=== PATIENT | female | born 1945 | race Caucasian/White ===

== ENCOUNTER → 2016-12-01 | Outpatient (CLI) | payer BC ==
[~2016-12-01] MED LIST: ADVIN50/60 INH; ADVIN50050 INH; ALBUAER19 INH; ASCA500 PO; ATEN-173 PO; BIOTCAP2 PO; CALCTAB7 PO; CHOL100010 PO; CHOL1TAB42 PO; CHOL4POW11 PO; CHOL4POW6 PO; CLTP PO; CYAN10005 PO; DICL1GEL12 TOP; DICL1GEL28; FERR1TAB23 PO; FLV400 PO; FURO-85 PO; GLIM1TAB2 PO; GLIP2.5T11 PO; HYDR0.5T PO; LANS15CA6 PO; LEFL20TA PO; LEVO100T7 PO; LEVO100T84 PO; MDR4 PO; METH1TAB81 PO; PLQ200 PO; SPIR25TA PO; SPR25 PO; SPRIN/30 INH; TIOTCAP INH; TRAM-10 PO; VNTHFA/IN INH; XPNINS NEB
[2016-12-01 09:43] LABS: ALT/SGPT 36 U/L (12-78); BLOOD UREA NITROGEN 19 mg/dl (7-18); CALCIUM 9.2 mg/dl (8.5-10.1); CARBON DIOXIDE 26 mmol/L (21-32); CHLORIDE 98 mmol/L (98-107); CHOLESTEROL 182 mg/dl (0-200); GLUCOSE 107 mg/dl (70-99); POTASSIUM 3.4 mmol/L (3.5-5.1); SODIUM 136 mmol/L (136-145); TRIGLYCERIDES 206 mg/dl (0-150); VERY LOW DENSITY LIPOPROT CALC 41 mg/dl
[2016-12-01 09:53] LABS: ALB/GLOB RATIO 1.1 (0.9-2); ALKALINE PHOSPHATASE 96 U/L (45-117); AST/SGOT 22 U/L (15-37); ESTIMATED AVERAGE GLUCOSE 160 mg/dl; HA1C FLAG Normal (Normal); HDL CHOLESTEROL 45 mg/dl; LDL CHOLESTEROL CALCULATED 96 mg/dl
== END | disposition home or self-care (01) ==
LOC: C.LAB1850 07:08
PROVIDERS: ATTEND Family Medicine
DX: E03.9 Hypothyroidism, unspecified (principal); I10 Essential (primary) hypertension; M54.5 Low back pain; R73.9 Hyperglycemia, unspecified; E78.5 Hyperlipidemia, unspecified

== ENCOUNTER → 2016-12-05 | Outpatient (CLI) | payer BC ==
[2016-11-29 15:58] VITALS: Ht 157.5 cm; Wt 64.5 kg
[~2016-12-05] VITALS: Ht 157.5 cm; Wt 64.5 kg
[2016-12-05 10:16] LABS: BASO % 0.5 %; BASO ABS # 0.08 K/uL (0-0.2); COMPLETE YES; EOS % 0.5 %; HEMATOCRIT 37.6 % (37-47); IG% 1.2 %; LYMPH % 6.9 %; LYMPH ABS # 1.17 K/uL (1.2-3.4); MEAN CORPUSCULAR HEMOGLOBIN 30.9 pg (25-34); MEAN CORPUSCULAR HGB CONC 34.3 g/dl (32-36); MEAN PLATELET VOLUME 9.6 fL (7.4-10.4); MONO % 10.2 %; NEUT % 80.7 %; PLATELET COUNT 338 K/uL (130-400); RED BLOOD COUNT 4.18 M/uL (4.2-5.4); WHITE BLOOD COUNT 16.91 K/uL (4.8-10.8)
== END | disposition home or self-care (01) ==
LOC: C.LAB 08:00 → EDSTATUS 12-09 10:15
PROVIDERS: ATTEND Internal Medicine Gastroenterology
DX: Z01.810 Encounter for preprocedural cardiovascular examination (principal); Z01.812 Encounter for preprocedural laboratory examination

== ENCOUNTER → 2017-01-13 | Outpatient (CLI) | payer BC ==
[2017-01-13 13:24] LABS: URINE APPEARANCE CLEAR (CLEAR); URINE BILIRUBIN NEG (NEG); URINE COLOR YELLOW; URINE NITRITE NEG (NEG); URINE SPECIFIC GRAVITY 1.001 (1.000-1.030); UROBILINOGEN NEG (NEG)
[2017-01-13 13:30] LABS: MANUAL MICROSCOPIC REQUIRED? NO; REVIEW REQ? NO
[2017-01-13 13:43] LABS: BLOOD UREA NITROGEN 18 mg/dl (7-18); BUN/CREATININE RATIO 14.7 (10-20); CALCIUM 9.3 mg/dl (8.5-10.1); CARBON DIOXIDE 29 mmol/L (21-32); CHLORIDE 94 mmol/L (98-107); GLUCOSE 152 mg/dl (70-99); POTASSIUM 3.9 mmol/L (3.5-5.1); SODIUM 133 mmol/L (136-145)
[2017-01-13 13:44] LABS: PHOSPHORUS 3.1 mg/dl (2.5-4.9)
== END | disposition home or self-care (01) ==
LOC: C.LAB1850 12:20
PROVIDERS: ATTEND Internal Medicine Nephrology
DX: N18.3 Chronic kidney disease, stage 3 (moderate) (principal); E87.1 Hypo-osmolality and hyponatremia

== ENCOUNTER → 2017-03-14 | Outpatient (CLI) | payer BC ==
[~2017-03-14] MED LIST changes: +BIOT1CAP3 PO; +CIPR-255 PO; +GENT60IN4; +METR500T PO; +ZNTT/150 PO
[2017-03-14 15:00] LABS: BASO % 0.5 %; BASO ABS # 0.06 K/uL (0-0.2); COMPLETE YES; EOS % 0.2 %; IG% 1.1 %; LYMPH % 7.5 %; MEAN CELL VOLUME 91.6 fL (80-100); MEAN CORPUSCULAR HEMOGLOBIN 30.7 pg (25-34); MEAN CORPUSCULAR HGB CONC 33.5 g/dl (32-36); MONO % 8.8 %; NEUT % 81.9 %; PLATELET COUNT 367 K/uL (130-400); RED BLOOD COUNT 4.04 M/uL (4.2-5.4); WHITE BLOOD COUNT 13.32 K/uL (4.8-10.8)
== END | disposition home or self-care (01) ==
LOC: C.LAB 14:14
PROVIDERS: ATTEND Physician Assistant
DX: M06.9 Rheumatoid arthritis, unspecified (principal); M46.1 Sacroiliitis, not elsewhere classified

== ENCOUNTER → 2017-03-30 | Outpatient (CLI) | payer BC ==
[2017-03-30 15:53] LABS: ALT/SGPT 37 U/L (12-78); AST/SGOT 21 U/L (15-37); BLOOD UREA NITROGEN 24 mg/dl (7-18); BUN/CREATININE RATIO 17.3 (10-20); CALCIUM 9.4 mg/dl (8.5-10.1); CARBON DIOXIDE 27 mmol/L (21-32); CHLORIDE 97 mmol/L (98-107); GLUCOSE 185 mg/dl (70-99); POTASSIUM 4.4 mmol/L (3.5-5.1); SODIUM 132 mmol/L (136-145)
[2017-03-30 15:54] LABS: ALKALINE PHOSPHATASE 99 U/L (45-117)
[2017-03-31 05:51] LABS: ESTIMATED AVERAGE GLUCOSE 157 mg/dl; HA1C FLAG Normal (Normal)
== END | disposition home or self-care (01) ==
LOC: C.LAB1850 14:05
PROVIDERS: ATTEND Family Medicine
DX: I10 Essential (primary) hypertension (principal); E03.9 Hypothyroidism, unspecified; E78.5 Hyperlipidemia, unspecified; E11.9 Type 2 diabetes mellitus without complications; R94.31 Abnormal electrocardiogram [ECG] [EKG]

== ENCOUNTER → 2017-04-04 | Outpatient (CLI) | payer BC ==
--- NOTE | 2017-04-04 10:50 | DIAGNOSTIC IMAGING REPORT ---
TWO VIEW CHEST CLINICAL HISTORY: Rheumatoid arthritis. FINDINGS: PA and lateral chest radiographs are compared to study dated 10/16/2014. The cardiomediastinal silhouette is unremarkable. The lungs and pleural spaces are clear. There is no pneumothorax. The skeletal structures are osteopenic. There are healed left-sided rib fractures. Cholecystectomy clips are seen in the right upper quadrant. IMPRESSION: No active disease in the chest. Electronically signed by: Palmer Herring M.D. 04/04/2017 10:48 AM Dictated Date/Time: 04/04/2017 10:48 AM
== END | disposition home or self-care (01) ==
LOC: C.RADPV 10:28
PROVIDERS: ATTEND Physician Assistant
DX: M06.9 Rheumatoid arthritis, unspecified (principal)

== ENCOUNTER → 2017-04-05 | Outpatient (CLI) | payer BC ==
--- NOTE | 2017-04-05 11:42 | DIAGNOSTIC IMAGING REPORT ---
LEFT HIP 2 VIEWS HISTORY: LEFT HIP PAIN COMPARISON: None. FINDINGS: There is no fracture or dislocation. Soft tissues are unremarkable. No radiopaque foreign bodies. Cartilage spaces are maintained for age. IMPRESSION: No fractures. Electronically signed by: Robbin Ortiz M.D. 04/05/2017 11:40 AM Dictated Date/Time: 04/05/2017 11:39 AM
== END | disposition home or self-care (01) ==
LOC: C.RADBC 10:51
PROVIDERS: ATTEND Physician Assistant
DX: M25.552 Pain in left hip (principal); M70.62 Trochanteric bursitis, left hip

== ENCOUNTER → 2017-04-20 | Outpatient (CLI) | payer BC ==
[~2017-04-20] MED LIST changes: -SPIR25TA PO
--- NOTE | 2017-04-20 14:43 | MAMMOGRAPHY REPORT ---
BILATERAL DIGITAL SCREENING MAMMOGRAM WITH CAD: 04/20/2017 CLINICAL HISTORY: Routine screening. TECHNIQUE: Current study was also evaluated with a Computer Aided Detection (CAD) system. Bilateral CC and MLO views were obtained. COMPARISON: Comparison is made to exams dated: 04/18/2016 mammogram, 04/15/2015 mammogram, 04/14/2014 mamm ogram, 04/10/2013 mammogram, 04/06/2012 mammogram, and 04/05/2011 mammogram - [facility] er. BREAST COMPOSITION: There are scattered areas of fibroglandular density in both breasts. FINDINGS: No suspicious masses, calcifications, or areas of architectural distortion are noted in ei ther breast. There has been no significant interval change compared to prior exams. Asymmetry in the right lateral posterior breast on the cc view is stable dating back to at least the 2007 exam, and co nsidered benign given long-term stability. IMPRESSION: ACR BI-RADS CATEGORY 2: BENIGN There is no mammographic evidence of malignancy. A 1 year screening mammogram is recommended. The pa tient will receive written notification of the results. Approximately 10% of breast cancers are not detected with mammography. A negative mammographic report should not delay biopsy if a clinically suggestive mass is present. Vanesa Cottrell M.D. ah/:04/20/2017 08:02:08 Medicaid Biller: Sai STERLING(Estella)(M), [facility] letter sent: Normal 1/2 BI-RADS Code: ACR BI-RADS Category 2: Benign
== END | disposition home or self-care (01) ==
LOC: C.MAMM 07:28
PROVIDERS: ATTEND Family Medicine
DX: Z12.31 Encounter for screening mammogram for malignant neoplasm of breast (principal)

== ENCOUNTER → 2017-05-03 | Outpatient (CLI) | payer BC ==
[2017-05-03 13:44] LABS: BASO % 0.5 %; BASO ABS # 0.07 K/uL (0-0.2); COMPLETE YES; EOS % 0.8 %; HEMATOCRIT 36.2 % (37-47); IG% 1.1 %; LYMPH % 13.4 %; LYMPH ABS # 1.75 K/uL (1.2-3.4); MEAN CELL VOLUME 96.3 fL (80-100); MEAN CORPUSCULAR HEMOGLOBIN 31.1 pg (25-34); MEAN CORPUSCULAR HGB CONC 32.3 g/dl (32-36); MEAN PLATELET VOLUME 9.5 fL (7.4-10.4); MONO % 11.9 %; NEUT % 72.3 %; PLATELET COUNT 349 K/uL (130-400); RED BLOOD COUNT 3.76 M/uL (4.2-5.4); WHITE BLOOD COUNT 13.08 K/uL (4.8-10.8)
== END | disposition home or self-care (01) ==
LOC: C.LABBC 09:49
PROVIDERS: ATTEND Physician Assistant
DX: Z01.812 Encounter for preprocedural laboratory examination (principal)

== ENCOUNTER → 2017-05-12 | Outpatient (CLI) | payer BC ==
[~2017-05-12] MED LIST changes: -BIOT1CAP3 PO; -CIPR-255 PO; -GENT60IN4; -METR500T PO; -ZNTT/150 PO
--- NOTE | 2017-05-12 11:12 | DIAGNOSTIC IMAGING REPORT ---
SACRUM COCCYX MIN 2 VIEWS CLINICAL HISTORY: FALL, TAILBONE PAIN COMPARISON STUDY: Sacrum/coccyx 09/26/2016. FINDINGS: There is nondisplaced fracture through the S3 vertebral body. The coccyx is intact. Stable 9 mm of anterolisthesis of L4 and L5. Moderate degenerative disease at L5-S1. Linear areas of sclerosis within the sacrum adjacent to the bilateral sacroiliac joints have progressed. This may represent healing insufficiency fractures.. IMPRESSION: 1. Nondisplaced transverse fracture through the S1 vertebral body. 2. Linear areas of sclerosis within the sacrum adjacent to the bilateral sacroiliac joints which is new from the prior study. This favors healing insufficiency fractures. Electronically signed by: Robbin Ortiz M.D. 05/12/2017 11:11 AM Dictated Date/Time: 05/12/2017 11:08 AM
== END | disposition home or self-care (01) ==
LOC: C.RADBC 10:22
PROVIDERS: ATTEND Physician Assistant Medical
DX: M54.5 Low back pain (principal); W19.XXXA Unspecified fall, initial encounter

== ENCOUNTER → 2017-06-18 | Outpatient (CLI) | payer BC ==
[2017-06-18 09:39] LABS: BASO % 0.7 %; BASO ABS # 0.07 K/uL (0-0.2); COMPLETE YES; EOS % 1.6 %; HEMATOCRIT 37.1 % (37-47); IG% 0.6 %; LYMPH % 20.5 %; LYMPH ABS # 1.96 K/uL (1.2-3.4); MEAN CELL VOLUME 91.6 fL (80-100); MEAN CORPUSCULAR HEMOGLOBIN 30.9 pg (25-34); MEAN CORPUSCULAR HGB CONC 33.7 g/dl (32-36); MEAN PLATELET VOLUME 9.4 fL (7.4-10.4); MONO % 10.6 %; PLATELET COUNT 332 K/uL (130-400); RED BLOOD COUNT 4.05 M/uL (4.2-5.4); WHITE BLOOD COUNT 9.54 K/uL (4.8-10.8)
== END | disposition home or self-care (01) ==
LOC: C.LAB 09:18
PROVIDERS: ATTEND Anesthesiology
DX: Z01.812 Encounter for preprocedural laboratory examination (principal)

== ENCOUNTER → 2017-07-18 | Outpatient (CLI) | payer BC ==
[2017-07-18 16:27] LABS: URINE APPEARANCE CLEAR (CLEAR); URINE BILIRUBIN NEG (NEG); URINE COLOR YELLOW; URINE NITRITE NEG (NEG); URINE PH 5.5 (4.5-7.5); URINE SPECIFIC GRAVITY 1.012 (1.000-1.030); UROBILINOGEN NEG (NEG)
[2017-07-18 16:28] LABS: MANUAL MICROSCOPIC REQUIRED? NO; REVIEW REQ? NO
[2017-07-18 16:36] LABS: BLOOD UREA NITROGEN 22 mg/dl (7-18); BUN/CREATININE RATIO 16.7 (10-20); CALCIUM 9.1 mg/dl (8.5-10.1); CARBON DIOXIDE 28 mmol/L (21-32); CHLORIDE 100 mmol/L (98-107); GLUCOSE 140 mg/dl (70-99); POTASSIUM 3.6 mmol/L (3.5-5.1); SODIUM 136 mmol/L (136-145)
[2017-07-18 16:40] LABS: PHOSPHORUS 3.3 mg/dl (2.5-4.9)
== END | disposition home or self-care (01) ==
LOC: C.LAB1850 14:52
PROVIDERS: ATTEND Internal Medicine Nephrology
DX: N18.3 Chronic kidney disease, stage 3 (moderate) (principal)

== ENCOUNTER 2017-08-13 20:50 | Emergency (ER) | payer BC ==
[~2017-08-13] VITALS: Ht 157.5 cm; Wt 57.2 kg
[~2017-08-13 20:50] MED LIST changes: -ADVIN50/60 INH; -CALCTAB7 PO; -CHOL1TAB42 PO; -CHOL4POW11 PO; -DICL1GEL12 TOP; -FERR1TAB23 PO; -GLIM1TAB2 PO; -LEVO100T7 PO; -MDR4 PO; -PLQ200 PO; -SPR25 PO; -SPRIN/30 INH; -VNTHFA/IN INH; -XPNINS NEB
[2017-08-13 21:00] VITALS: TEMP 36.6; Ht 157.5 cm; Wt 57.2 kg
[2017-08-13 22:01] VITALS: BP 178/90; PULSE 72; O2SAT 95
[2017-08-13] MEDS ORDERED: MDR4 PO (22:20)
[2017-08-13] MEDS ORDERED: DICL1GEL12 TOP (22:20)
[2017-08-13] MEDS ORDERED: VNTHFA/IN INH (22:20)
[2017-08-13] MEDS ORDERED: CHOL4POW11 PO (22:20)
[2017-08-13] MEDS ORDERED: CHOL1TAB42 PO (22:20)
[2017-08-13] MEDS ORDERED: PLQ200 PO (22:20)
[2017-08-13] MEDS ORDERED: LEVO100T7 PO (22:20)
[2017-08-13] MEDS ORDERED: CALCTAB7 PO (22:20)
[2017-08-13] MEDS ORDERED: FERR1TAB23 PO (22:20)
[2017-08-13] MEDS ORDERED: XPNINS NEB (22:20)
[2017-08-13] MEDS ORDERED: GLIM1TAB2 PO (22:20)
[2017-08-13] MEDS ORDERED: SPR25 PO (22:20)
[2017-08-13] MEDS ORDERED: ADVIN50/60 INH (22:20)
[2017-08-13] MEDS ORDERED: SPRIN/30 INH (22:20)
--- NOTE | 2017-08-14 02:20 | EMERGENCY ROOM VISIT NOTE ---
ED Visit Note First contact with patient: 21:08 Chief Complaint: My cat ran into my right leg and caused a skin tear. History of Present Illness: Ms. Herrera is a 71-year-old white female who ambulates into the ED accompanied by her complaining of a skin tear to the right lower leg. Patient reports approximately one hour ago she was walking in her house and her cat was running in the house and struck her right lower leg causing a skin tear. She reports she control bleeding prior to arrival at the hospital. Associated with her skin tear she reports she has been having a slightly throbbing and bruising type pain in the area of her skin tear. She rates this discomfort 5/10. The pain is nonradiating. The pain worsens with palpation. She has not identified any alleviating factors related to the pain. She has not taken a medication for pain prior to arrival at the hospital. She denies any associated symptoms including knee pain, ankle pain, foot pain, leg/foot weakness/numbness/tingling. Review of Systems: As noted above in history of present illness. Past Medical History: Diabetes, hypertension, kidney disease, asthma, bronchitis , pneumonia, unspecified stomach disorder, status post hysterectomy, section, D&C, cholecystectomy and ERCP. Current Medications: Medications Dose Route/Sig Max Daily Dose Days Date Category Voltaren 1% Top Gel (Diclofenac Sodium (Topical)) 1 % Gel 1 Appln TOP QID 08/13/17 Reported Vitamin D (Cholecalciferol) 5,000 Unit Tab 5,000 Units PO DAILY 08/13/17 Reported Spironolactone 25 Mg Tab 25 Mg PO DAILY 08/13/17 Reported Methylprednisolone 4 Mg Tab 8 Mg PO DAILY 08/13/17 Reported Levothyroxine Sodium 100 Mcg Tab 100 Mg PO DAILY 08/13/17 Reported Levalbuterol HCl (Levalbuterol) 0.63 Mg/3 Ml Nebu 1 Unit NEB Q4H PRN 08/13/17 Reported Hydroxychloroquine Sulfat (Hydroxychloroquine Sulfate) 200 Mg Tab 1.5 Tab PO DAILY 08/13/17 Reported Glimepiride 1 Mg Tab 1 Mg PO DAILY 08/13/17 Reported Iron (Ferrous Sulfate) 325 Mg Tab 1 Tab PO DAILY 08/13/17 Reported Questran (Cholestyramine) 4 Gm Pow 1 Pkt PO BID PRN 08/13/17 Reported Caltrate 600 Plus (Calcium Carbonate-Vitamin D W/) 1 Tab Tab 1 Tab PO BID 08/13/17 Reported Ventolin Hfa (Albuterol) 200 Puffs/94776 Mcg Aers 2 Puffs INH Q4 PRN 08/13/17 Reported Spiriva Handihaler (Tiotropium [place]) 30 Puff/540 Mcg Aerp 1 Cap INH DAILY 08/13/17 Reported Advair Diskus 500/50 60 Dose (Fluticasone Prop/Salmeterol) 1 Ea Aerp 1 Puff INH BID 08/13/17 Reported Ultram (Tramadol HCl) 50 Mg Tab 1 Tab PO TID PRN 30 04/05/17 Reported Vitamin B-12 (Cyanocobalamin) 1,000 Mcg Tab 1,000 Mcg PO BID 11/29/16 Reported Arava (Leflunomide) 20 Mg Tab 1 Tab PO NOON 30 11/03/16 Reported Lasix (Furosemide) 20 Mg Tab 20 Mg PO QAM 11/26/14 Reported Vitamin C (Ascorbic Acid) 500 Mg Tab 500 Mg PO HS 07/15/14 Reported Tenormin (Atenolol) 25 Mg Tab 25 Mg PO QAM 01/13/11 Reported Allergies to Medications: Augmentin, gabapentin, gold and sulfa. Social History: Patient is not employed; she feels safe in her home environment ; she denies tobacco and alcohol use. Tetanus Immunization Status: Patient reports up-to-date. Physical Examination: Vital Signs: Date Time Temp Pulse Resp B/P (MAP) Pulse Ox O2 Delivery O2 Flow Rate FiO2 08/13/17 22:01 72 18 178/90 95 08/13/17 21:00 36.6 70 18 186/96 95 Room Air GENERAL: 71-year-old female in mild distress due to pain, nontoxic-appearing, afebrile and hemodynamically stable. NEUROLOGICAL: Awake, alert and oriented to person, place and time. Answering questions appropriately and following commands. Normal gait. SKIN: Warm, dry and pink. Right Lower Leg: Over the medial aspect of the lower leg patient has a soft tissue injury. There are multiple skin superficial tears in a 4 x 4 centimeter area. There is no active bleeding. I was not able to read fine the length of each of the skin tears. RIGHT LOWER EXTREMITY: No gross bony deformity. Soft tissue injury as noted above. Full range of motion in flexion and extension of the knee and abduction and abduction of the ankle. Throughout the leg and the foot the skin was warm and pink and capillary refill is brisk. She was able to distinguish light sensations through all dermatomes. ED Course: Patient is assessed as noted above. Patient's medication list was reviewed. Wound Repair: Complexity: Basic Verbal consent was obtained after the risks and benefits were explained. The skin was prepped with betadine and a sterile field set. The wound was explored for foreign bodies and none found. Copious irrigation was performed using sterile saline. With direct pressure the bleeding subsided. Debridement was not performed. Benzoin was placed around the external portion of the skin tear and the wound edges were approximated with Steri-Strips. Hemostasis and adequate approximation was achieved. The skin tear was then wrapped with a sterile dressing applied. No complications and the patient tolerated the procedure well. Patient was educated about tonight's findings and instructed on her treatment plan; she verbalizes understanding and agreement with this plan. Clinical Impression: Right lower leg skin tear. Disposition: Patient discharged home in stable condition; prior to departure he was reassessed and subjectively reported she was feeling the same. Plan: Comfort measures, wound care, and signs of infection were discussed with the patient. Patient was encouraged to follow-up with personal physician or return emergency department for any signs of infection or any new/concerning symptoms.
== END 2017-08-13 22:03 | disposition home or self-care (01) ==
LOC: C.EDB 20:50 → C.EDD 22:03
DX: S81.811A Laceration without foreign body, right lower leg, initial encounter (principal); W55.03XA Scratched by cat, initial encounter; E11.9 Type 2 diabetes mellitus without complications; I10 Essential (primary) hypertension; N18.9 Chronic kidney disease, unspecified; J45.909 Unspecified asthma, uncomplicated

== ENCOUNTER 2017-09-11 12:24 | Inpatient (IN) | payer BC, OTHER ==
[~2017-09-11] VITALS: Ht 157.5 cm; Wt 60.0 kg
[~2017-09-11 12:24] MED LIST changes: -ADVIN50050 INH; -ALBUAER19 INH; -BIOTCAP2 PO; -CHOL100010 PO; -CHOL4POW6 PO; -CLTP PO; -CYAN10005 PO; -DICL1GEL28; -FLV400 PO; -GLIP2.5T11 PO; -HYDR0.5T PO; -LANS15CA6 PO; -LEFL20TA PO; -LEVO100T84 PO; -METH1TAB81 PO; -TIOTCAP INH
[2017-09-11] MEDS ORDERED: ACETAMINOPHEN 500 MG TAB PO STA (12:59)
[2017-09-11] MEDS ORDERED: SODIUM CHLORIDE 0.9% 1000ML 1,000 ML IV STA (12:59)
[2017-09-11] MEDS ORDERED: ONDANSETRON INJ 2 MG/ML 2 ML VIAL IV STA (12:59)
[2017-09-11] MEDS ORDERED: OPTIRAY 320 IV PRN (13:15)
[2017-09-11 13:33] LABS: BASO % 0.3 %; BASO ABS # 0.03 K/uL (0-0.2); COMPLETE YES; EOS % 0.2 %; HEMATOCRIT 36.8 % (37-47); IG% 0.3 %; LYMPH % 5.7 %; LYMPH ABS # 0.55 K/uL (1.2-3.4); MEAN CELL VOLUME 90.4 fL (80-100); MEAN CORPUSCULAR HGB CONC 33.2 g/dl (32-36); MEAN PLATELET VOLUME 9.3 fL (7.4-10.4); MONO % 4.2 %; NEUT % 89.3 %; PLATELET COUNT 244 K/uL (130-400); RED BLOOD COUNT 4.07 M/uL (4.2-5.4); WHITE BLOOD COUNT 9.66 K/uL (4.8-10.8)
[2017-09-11 13:49] LABS: BUN/CREATININE RATIO 12.9 (10-20); CALCIUM 9.5 mg/dl (8.5-10.1); CREATININE 1.26 mg/dl (0.60-1.20); POTASSIUM 3.5 mmol/L (3.5-5.1)
--- NOTE | 2017-09-11 14:17 | DIAGNOSTIC IMAGING REPORT ---
CT ABD/PELVIS IV CONTRAST ONLY CLINICAL HISTORY: Diffuse abdominal pain, fever, nausea, diarrhea, vomiting. COMPARISON STUDY: December 2014 TECHNIQUE: Following the IV administration of 119 mL of Optiray-320, CT scan of the abdomen and pelvis was performed from the lung bases to the proximal femurs. Images are reviewed in the axial, sagittal, and coronal planes. IV contrast was administered without complication. A dose lowering technique was utilized adhering to the principles of ALARA. CT DOSE: 235.19 mGy.cm FINDINGS: Lower chest: The heart is normal in size and configuration, without pericardial effusion. The lung bases and pleural spaces are clear. Liver: There is persistent pneumobilia. No space-occupying hepatic masses are visualized. Gallbladder: Surgically absent Spleen: Normal in size and attenuation. Pancreas: Unremarkable. Adrenal glands: Unremarkable. Kidneys: There is symmetric renal cortical enhancement. The kidneys are normal in size without hydronephrosis. Bowel: There are no transition zones indicate bowel obstruction. There is colonic diverticulosis. There are no acute peridiverticular inflammatory changes. The appendix is at the upper limits of normal in diameter without evidence of significant periappendiceal inflammatory change Peritoneum: There is no intraperitoneal free air or abdominal ascites. Vasculature: The abdominal aorta is normal in course and caliber. Adenopathy: None. Pelvic viscera: The uterus appears surgically absent Skeletal structures: There is a scoliosis. There are moderate multilevel degenerative changes in the lumbar spine. As a grade 1 spondylolisthesis of L4 and L5. IMPRESSION: 1. Surgically absent gallbladder and uterus 2. Pneumobilia, likely secondary to a prior sphincterotomy 3. No evidence of bowel obstruction. No evidence of free air 4. Diverticulosis. No evidence of acute diverticulitis 5. No evidence of acute appendicitis Electronically signed by: Jose Zimmerman M.D. 09/11/2017 2:15 PM Dictated Date/Time: 09/11/2017 2:10 PM
[2017-09-11] MEDS ORDERED: METRONIDAZOLE 500MG / 100ML NSS IV STA (14:50)
[2017-09-11] MEDS ORDERED: LEFL20TA PO (14:57)
[2017-09-11] MEDS ORDERED: CEFEPIME IV 1,000 MG in DEXTROSE 5% 100ML 100 ML IV SCH (15:00)
[2017-09-11] MEDS ORDERED: CYAN10005 PO (15:58)
[2017-09-11] MEDS ORDERED: HYDROCORTISONE SOD SUCCINATE 100 MG/2 ML VIAL IV STA (16:05)
[2017-09-11] MEDS ORDERED: HYDROCORTISONE IV 50 MG in SYRINGE 0 ML IV ONE (16:05)
[2017-09-11 16:11] LABS: URINE APPEARANCE CLEAR (CLEAR); URINE BILIRUBIN NEG (NEG); URINE COLOR YELLOW; URINE EPITHELIAL CELL AUTO 0-5 /lpf (0-5); URINE NITRITE NEG (NEG); URINE SPECIFIC GRAVITY 1.045 (1.000-1.030); UROBILINOGEN NEG (NEG); ZZUR CULT IF INDIC CLEAN CATCH NO
[2017-09-11 16:12] LABS: MANUAL MICROSCOPIC REQUIRED? NO; REVIEW REQ? NO
[2017-09-11] MEDS ORDERED: SODIUM CHLORIDE 0.9% 1000ML 1,000 ML IV ONE (16:15)
[2017-09-11] MEDS ORDERED: ALUMINUM/MAGNESIUM/SIMETH (MAALOX MAX) 30 ML UDC PO PRN (16:15)
[2017-09-11] MEDS ORDERED: ONDANSETRON INJ 2 MG/ML 2 ML VIAL IV PRN (16:15)
[2017-09-11] MEDS ORDERED: POLYETHYLENE (MIRALAX) 17 GM PACK PO PRN (16:15)
[2017-09-11] MEDS ORDERED: MAGNESIUM HYDROXIDE SUSP 30 ML UDC PO PRN (16:15)
--- NOTE | 2017-09-11 16:29 | Gastrointestinal Consultation ---
Gastrointestinal Consultation Date of Consultation: Sep 11, 2017 Attending Physician: Patricia Consulting Physician: Tyrese Reason for Consultation: ?cholangitis History of Present Illness Patient is a 71 year old female w/ history of cholecystomy for gallstones and ERCP for choledocholithiasis who presented to the ED for evaluation of abrupt onset RUQ pain, nausea, vomiting, fever and chills. Pt was seen and evaluated in the ED. Chart reviewed. Pt tells me that she had some abdominal cramping this AM which acutely worsened after eating breakfast this AM. Had increase in her pain, associated with nausea and one episode of emesis. No coffee ground emesis or hematemesis. Also notes some loose stool this AM, no black or bloody stools. Notes that she took her temperatie at home and it was 102F. No tylenol use No ETOH use No new medications CT ABD/Pelvis: Surgically absent gallbladder and uterus Pneumobilia, likely secondary to a prior sphincterotomy No evidence of bowel obstruction. No evidence of free air Diverticulosis. No evidence of acute diverticulitis No evidence of acute appendicitis RUQ US 11/16/16: Status post cholecystectomy. Nonspecific pneumobilia. Clinical correlation needed Colonoscopy 11/26/14: The examined portion of the ileum was normal. Mild diverticulosis in the sigmoid colon. Internal hemorrhoids. The examination was otherwise normal. EGD 11/26/14: Monilial esophagitis. Biopsied. Normal middle third of esophagus, lower third of esophagus and gastroesophageal junction. Gastritis. Biopsied. Multiple gastric polyps. Biopsied. Normal duodenal bulb and 2nd part of the duodenum. Biopsied. ERCP 01/17/11: Choledocholithiasis was found. Complete removal was accomplished by biliary sphincterotomy and balloon extraction. Past Medical/Surgical History ruq pain, nausea, vomiting, fever, chills Past Medical History: asthma, HTN, hypothyroidism, GERD, RA, OA Past Surgical History: ERCP, EGD, colonoscopy, cholecystectomy, Social History Smoking Status: Never Smoker Alcohol Use: occasionally Drug Use: none Marital Status: Housing Status: lives with family Allergies Coded Allergies: Gabapentin (Unverified Allergy, Mild, DELIRIUM, 09/11/17) Amoxicillin (Verified Allergy, Unknown, SEVERE RHEUMATOID ARTHRITIC SYMPTOMS, 09/11/17) Clavulanic Acid (Verified Allergy, Unknown, SEVERE RHEUMATOID ARTHRITIC SYMPTOMS, 09/11/17) Gold-containing Drug Products (Verified Allergy, Unknown, RIDAURA ( AURANOFIN), 09/11/17) Sulfa Antibiotics (Verified Adverse Reaction, Unknown, "give me anxiety", 09/11/17) Current Medications Home Meds and Scripts Medications Dose Route/Sig Max Daily Dose Days Date Category Voltaren 1% Top Gel (Diclofenac Sodium (Topical)) 1 % Gel 1 Appln TOP QID 08/13/17 Reported Vitamin D (Cholecalciferol) 5,000 Unit Tab 5,000 Units PO DAILY 08/13/17 Reported Spironolactone 25 Mg Tab 25 Mg PO DAILY 08/13/17 Reported Methylprednisolone 4 Mg Tab 8 Mg PO DAILY 08/13/17 Reported Levothyroxine Sodium 100 Mcg Tab 100 Mg PO DAILY 08/13/17 Reported Levalbuterol HCl (Levalbuterol) 0.63 Mg/3 Ml Nebu 1 Unit NEB Q4H PRN 08/13/17 Reported Hydroxychloroquine Sulfat (Hydroxychloroquine Sulfate) 200 Mg Tab 1.5 Tab PO DAILY 08/13/17 Reported Glimepiride 1 Mg Tab 1 Mg PO DAILY 08/13/17 Reported Iron (Ferrous Sulfate) 325 Mg Tab 1 Tab PO DAILY 08/13/17 Reported Questran (Cholestyramine) 4 Gm Pow 1 Pkt PO BID PRN 08/13/17 Reported Caltrate 600 Plus (Calcium Carbonate-Vitamin D W/) 1 Tab Tab 1 Tab PO BID 08/13/17 Reported Ventolin Hfa (Albuterol) 200 Puffs/84491 Mcg Aers 2 Puffs INH Q4 PRN 08/13/17 Reported Spiriva Handihaler (Tiotropium [place]) 30 Puff/540 Mcg Aerp 1 Cap INH DAILY 08/13/17 Reported Advair Diskus 500/50 60 Dose (Fluticasone Prop/Salmeterol) 1 Ea Aerp 1 Puff INH BID 08/13/17 Reported Ultram (Tramadol HCl) 50 Mg Tab 1 Tab PO TID PRN 30 04/05/17 Reported Vitamin B-12 (Cyanocobalamin) 1,000 Mcg Tab 1,000 Mcg PO BID 11/29/16 Reported Arava (Leflunomide) 20 Mg Tab 1 Tab PO NOON 30 11/03/16 Reported Lasix (Furosemide) 20 Mg Tab 20 Mg PO QAM 11/26/14 Reported Vitamin C (Ascorbic Acid) 500 Mg Tab 500 Mg PO HS 07/15/14 Reported Tenormin (Atenolol) 25 Mg Tab 25 Mg PO QAM 01/13/11 Reported Review of Systems Constitutional: + fever, + chills Respiratory: No cough, No shortness of breath Cardiac: No chest pain, No edema Abdomen: + pain, + nausea, + vomiting, + diarrhea, No constipation, No GI bleeding Physical Exam Date Time Temp Pulse Resp B/P (MAP) Pulse Ox O2 Delivery O2 Flow Rate FiO2 09/11/17 14:38 39.0 95 18 143/74 91 Room Air 09/11/17 12:28 39.0 88 18 163/75 95 Room Air General Appearance: no apparent distress Eyes: PERRL ENT: hearing grossly normal Neck: supple Respiratory/Chest: lungs clear Cardiovascular: regular rate, rhythm Abdomen: normal bowel sounds, soft, no organomegaly, no pulsatile mass, + tenderness (RUQ pain with palpation) Neurologic/Psych: alert, normal mood/affect Skin: normal color Laboratory Results Last 24 Hours Test 09/11/17 13:10 09/11/17 13:23 09/11/17 15:55 09/11/17 16:21 White Blood Count 9.66 K/uL Red Blood Count 4.07 M/uL Hemoglobin 12.2 g/dL Hematocrit 36.8 % Mean Corpuscular Volume 90.4 fL Mean Corpuscular Hemoglobin 30.0 pg Mean Corpuscular Hemoglobin Concent 33.2 g/dl Platelet Count 244 K/uL Mean Platelet Volume 9.3 fL Neutrophils (%) (Auto) 89.3 % Lymphocytes (%) (Auto) 5.7 % Monocytes (%) (Auto) 4.2 % Eosinophils (%) (Auto) 0.2 % Basophils (%) (Auto) 0.3 % Neutrophils # (Auto) 8.62 K/uL Lymphocytes # (Auto) 0.55 K/uL Monocytes # (Auto) 0.41 K/uL Eosinophils # (Auto) 0.02 K/uL Basophils # (Auto) 0.03 K/uL RDW Standard Deviation 45.5 fL RDW Coefficient of Variation 13.7 % Immature Granulocyte % (Auto) 0.3 % Immature Granulocyte # (Auto) 0.03 K/uL Sodium Level 134 mmol/L Potassium Level 3.5 mmol/L Chloride Level 99 mmol/L Carbon Dioxide Level 25 mmol/L Anion Gap 11.0 mmol/L Blood Urea Nitrogen 16 mg/dl Creatinine 1.26 mg/dl Est Creatinine Clear Calc Drug Dose 32.9 ml/min Estimated GFR () 50.0 Estimated GFR (Non- 43.1 BUN/Creatinine Ratio 12.9 Random Glucose 123 mg/dl Calcium Level 9.5 mg/dl Total Bilirubin 1.9 mg/dl Direct Bilirubin 1.4 mg/dl Aspartate Amino Transf (AST/SGOT) 1282 U/L Alanine Aminotransferase (ALT/SGPT) 977 U/L Alkaline Phosphatase 629 U/L Total Protein 6.9 gm/dl Albumin 3.6 gm/dl Lipase 272 U/L Bedside Lactic Acid Venous 2.22 mmol/L Urine Color YELLOW Urine Appearance CLEAR Urine pH 6.0 Urine Specific [place] 1.045 Urine Protein NEG Urine Glucose (UA) NEG Urine Ketones NEG Urine Occult Blood NEG Urine Nitrite NEG Urine Bilirubin NEG Urine Urobilinogen NEG Urine Leukocyte Esterase NEG Urine WBC (Auto) 1-5 /hpf Urine RBC (Auto) 0-4 /hpf Urine Hyaline Casts (Auto) 1-5 /lpf Urine Epithelial Cells (Auto) 0-5 /lpf Urine Bacteria (Auto) NEG Impression Patient is a 71 year old female with history of gallstones, s/p cholecystectomy in 2004 with choledocholithiasis in 2010 requiring ERCP who presented to the ED today for evaluation of abrupt onset RUQ pain, fever, chills, rigors, nausea and vomiting - "I feel exactly the same as when I had a stone stuck before". VSS , pt is febrile, transaminitis with TB 1.7 and DB 1.4. Lipase WNL. Kidney function good. choledocholithiasis vs viral induced injury vs other. Will proceed with serology and MRCP. Plan NPO MRCP Broad spectrum ABX for cholangitis coverage Follow up serology that was ordered daily LFTs daily coagulation studies Please obtain stool culture, c.diff if loose stools return GI to follow, please call with any questions or concerns - I performed a history and physical examination of the patient, I have discussed the patient's management with Edwina. Please refer to the PA's note for the documented findings and plan of care. Patient with Hx of Choledocholithiasis in the past present with nausea, vomiting , RUQ abdominal pain and found with deranged LFTs, mixed hepatocellular and cholestatic. No Tylenol use. Has soft nontender abdomen. DDx include recurrent Choledocholithiasis, Acute viral hepatitis, DILI and less likely Autoimmune. Obtain MRCP and continue ABx. Please call us immediately if any change in clinical status like hypotension or sepsis. Viral hepatitis Monitor LFTs and INR.
--- NOTE | 2017-09-11 18:20 | EMERGENCY ROOM VISIT NOTE ---
History Report prepared by Shanelle: Shravan Montoya Under the Supervision of: Dr. Los Ramirez D.O. First contact with patient: 12:42 Chief Complaint: GI ASSESSMENT Stated Complaint: FEVER,VOMITING,NAUSEA,ABD CRAMPING,DIARRHEA Nursing Triage Summary: "I ate breakfast and then developed cramping in my stomach and then started vomiting and having frequent bowel movements, now I have the dry heaves and a fever". Pt verbalizes symptoms started this morning. Denies taking tylenol or ibuprofen for fever because she cannot take these meds. Pt also requesting that a physician look at her right lower leg as she was scratched by a cat on August 13, she thinks it is infected now. Abdominal pain 07/23. History of Present Illness The patient is a 71 year old female who presents to the Emergency Room with complaints of moderate cramping abdominal pain that began this morning. She woke up this morning and felt fine until she ate breakfast. Afterward, she began to have this abdominal pain and felt very nauseated. She had an episode of vomiting with diarrhea as well. Once she vomited, her abdominal cramping went away. She then started experiencing chills and took her temperature which was 102 F. She has a history of gallstones with a cholecystectomy and a complete hysterectomy. She still has her appendix and has never had C-Diff. She was seen in the ER on August 13 for laceration to her right leg. She denies any recent travels, hiking, or backpacking. She denies any hematochezia or melena. Source of History: patient Onset: this morning Position: abdomen Symptom Intensity: moderate Quality: cramping Timing: resolved Associated Symptoms: + fevers, + chills, + nausea, + vomiting, + diarrhea, No melena, No hematochezia Review of Systems See HPI for pertinent positives & negatives. A total of 10 systems reviewed and were otherwise negative. Past Medical & Surgical Medical Problems: (1) Asthma (2) Benign hypertension (3) Bronchitis (4) Cholangitis (5) Cholecystectomy (6) History of - section Family History Omitted secondary to the patient's age. Social History Smoking Status: Never Smoker Smokeless Tobacco Use: No Alcohol Use: occasionally Drug Use: none Marital Status: Housing Status: lives with family Occupation Status: retired Current/Historical Medications Scheduled Ascorbic Acid (Vitamin C), 500 MG PO HS Atenolol (Tenormin), 25 MG PO QAM Calcium Carbonate-Vitamin D W/ (Caltrate 600 Plus), 1 TAB PO BID Cholecalciferol (Vitamin D), 5,000 UNITS PO DAILY Cyanocobalamin (Vitamin B-12), 1,000 MCG PO BID Diclofenac Sodium (Topical) (Voltaren 1% Top Gel), 1 APPLN TOP QID Ferrous Sulfate (Iron), 1 TAB PO DAILY Fluticasone Prop/Salmeterol (Advair Diskus 500/50 60 Dose), 1 PUFF INH BID Furosemide (Lasix), 20 MG PO QAM Glimepiride (Glimepiride), 1 MG PO DAILY Hydroxychloroquine Sulfate (Hydroxychloroquine Sulfat), 1.5 TAB PO DAILY Leflunomide (Arava), 1 TAB PO NOON Levothyroxine Sodium (Levothyroxine Sodium), 100 MG PO DAILY Methylprednisolone (Methylprednisolone), 8 MG PO DAILY Spironolactone (Spironolactone), 25 MG PO DAILY Tiotropium [place] (Spiriva Handihaler), 1 CAP INH DAILY Scheduled PRN Albuterol Hfa (Ventolin Hfa), 2 PUFFS INH Q4 PRN for SOB/Wheezing Cholestyramine (Questran), 1 PKT PO BID PRN for Diarrhea Levalbuterol (Levalbuterol HCl), 1 UNIT NEB Q4H PRN for SOB/Wheezing Tramadol (Ultram), 1 TAB PO TID PRN for prn Allergies Coded Allergies: Gabapentin (Unverified Allergy, Mild, DELIRIUM, 09/11/17) Amoxicillin (Verified Allergy, Unknown, SEVERE RHEUMATOID ARTHRITIC SYMPTOMS, 09/11/17) Clavulanic Acid (Verified Allergy, Unknown, SEVERE RHEUMATOID ARTHRITIC SYMPTOMS, 09/11/17) Gold-containing Drug Products (Verified Allergy, Unknown, RIDAURA ( AURANOFIN), 09/11/17) Sulfa Antibiotics (Verified Adverse Reaction, Unknown, "give me anxiety", 09/11/17) Physical Exam Vital Signs Date Time Temp Pulse Resp B/P (MAP) Pulse Ox O2 Delivery O2 Flow Rate FiO2 09/11/17 16:29 92 18 128/65 92 Room Air 09/11/17 14:38 39.0 95 18 143/74 91 Room Air 09/11/17 12:28 39.0 88 18 163/75 95 Room Air Physical Exam GENERAL: Sitting up in bed, disheveled, alert, well appearing, well nourished, no distress, non-toxic EYE EXAM: normal conjunctiva. OROPHARYNX: no exudate, no erythema, lips, buccal mucosa, and tongue normal and mucous membranes are moist NECK: supple, no nuchal rigidity, no adenopathy, non-tender LUNGS: Clear to auscultation. Normal chest wall mechanics HEART: no murmurs, S1 normal and S2 normal ABDOMEN: abdomen soft, non-tender, normo-active bowel sounds, no masses, no rebound or guarding. BACK: Back is symmetrical on inspection and there is no deformity, no midline tenderness, no CVA tenderness. SKIN: no rashes and no bruising UPPER EXTREMITIES: upper extremities are grossly normal. LOWER EXTREMITIES: 3x1.5 cm triangular laceration to the right medial calf. Healing. No discharge. No pitting edema. NEURO EXAM: Normal sensorium, cranial nerves II-XII grossly intact, normal speech, no gross weakness of arms, no gross weakness of legs. Medical Decision & Procedures ER Provider Diagnostic Interpretation: Radiology results as stated below per my review and the radiologist's interpretation: CT ABD/PELVIS IV CONTRAST ONLY CLINICAL HISTORY: Diffuse abdominal pain, fever, nausea, diarrhea, vomiting. COMPARISON STUDY: December 2014 TECHNIQUE: Following the IV administration of 119 mL of Optiray-320, CT scan of the abdomen and pelvis was performed from the lung bases to the proximal femurs. Images are reviewed in the axial, sagittal, and coronal planes. IV contrast was administered without complication. A dose lowering technique was utilized adhering to the principles of ALARA. CT DOSE: 235.19 mGy.cm FINDINGS: Lower chest: The heart is normal in size and configuration, without pericardial effusion. The lung bases and pleural spaces are clear. Liver: There is persistent pneumobilia. No space-occupying hepatic masses are visualized. Gallbladder: Surgically absent Spleen: Normal in size and attenuation. Pancreas: Unremarkable. Adrenal glands: Unremarkable. Kidneys: There is symmetric renal cortical enhancement. The kidneys are normal in size without hydronephrosis. Bowel: There are no transition zones indicate bowel obstruction. There is colonic diverticulosis. There are no acute peridiverticular inflammatory changes. The appendix is at the upper limits of normal in diameter without evidence of significant periappendiceal inflammatory change Peritoneum: There is no intraperitoneal free air or abdominal ascites. Vasculature: The abdominal aorta is normal in course and caliber. Adenopathy: None. Pelvic viscera: The uterus appears surgically absent Skeletal structures: There is a scoliosis. There are moderate multilevel degenerative changes in the lumbar spine. As a grade 1 spondylolisthesis of L4 and L5. IMPRESSION: 1. Surgically absent gallbladder and uterus 2. Pneumobilia, likely secondary to a prior sphincterotomy 3. No evidence of bowel obstruction. No evidence of free air 4. Diverticulosis. No evidence of acute diverticulitis 5. No evidence of acute appendicitis Electronically signed by: Jose Zimmerman M.D. 09/11/2017 2:15 PM Dictated Date/Time: 09/11/2017 2:10 PM Laboratory Results 09/11/17 13:10 Red Blood Count 4.07, Mean Corpuscular Volume 90.4, Mean Corpuscular Hemoglobin 30.0, Mean Corpuscular Hemoglobin Concent 33.2, Mean Platelet Volume 9.3, Neutrophils (%) (Auto) 89.3, Lymphocytes (%) (Auto) 5.7, Monocytes (%) (Auto) 4.2, Eosinophils (%) (Auto) 0.2, Basophils (%) (Auto) 0.3, Neutrophils # (Auto) 8.62, Lymphocytes # (Auto) 0.55, Monocytes # (Auto) 0.41, Eosinophils # (Auto) 0.02, Basophils # (Auto) 0.03 09/11/17 13:10 Test 09/11/17 13:10 09/11/17 13:23 09/11/17 15:55 09/11/17 16:21 White Blood Count 9.66 K/uL (4.8-10.8) Red Blood Count 4.07 M/uL (4.2-5.4) Hemoglobin 12.2 g/dL (12.0-16.0) Hematocrit 36.8 % (37-47) Mean Corpuscular Volume 90.4 fL (80-100) Mean Corpuscular Hemoglobin 30.0 pg (25-34) Mean Corpuscular Hemoglobin Concent 33.2 g/dl (32-36) Platelet Count 244 K/uL (130-400) Mean Platelet Volume 9.3 fL (7.4-10.4) Neutrophils (%) (Auto) 89.3 % Lymphocytes (%) (Auto) 5.7 % Monocytes (%) (Auto) 4.2 % Eosinophils (%) (Auto) 0.2 % Basophils (%) (Auto) 0.3 % Neutrophils # (Auto) 8.62 K/uL (1.4-6.5) Lymphocytes # (Auto) 0.55 K/uL (1.2-3.4) Monocytes # (Auto) 0.41 K/uL (0.11-0.59) Eosinophils # (Auto) 0.02 K/uL (0-0.5) Basophils # (Auto) 0.03 K/uL (0-0.2) RDW Standard Deviation 45.5 fL (36.4-46.3) RDW Coefficient of Variation 13.7 % (11.5-14.5) Immature Granulocyte % (Auto) 0.3 % Immature Granulocyte # (Auto) 0.03 K/uL (0.00-0.02) Anion Gap 11.0 mmol/L (3-11) Est Creatinine Clear Calc Drug Dose 32.9 ml/min Estimated GFR () 50.0 Estimated GFR (Non- 43.1 BUN/Creatinine Ratio 12.9 (10-20) Calcium Level 9.5 mg/dl (8.5-10.1) Total Bilirubin 1.9 mg/dl (0.2-1) Direct Bilirubin 1.4 mg/dl (0-0.2) Aspartate Amino Transf (AST/SGOT) 1282 U/L (15-37) Alanine Aminotransferase (ALT/SGPT) 977 U/L (12-78) Alkaline Phosphatase 629 U/L (45-117) Total Protein 6.9 gm/dl (6.4-8.2) Albumin 3.6 gm/dl (3.4-5.0) Lipase 272 U/L (73-393) Bedside Lactic Acid Venous 2.22 mmol/L (0.90-1.70) Urine Color YELLOW Urine Appearance CLEAR (CLEAR) Urine pH 6.0 (4.5-7.5) Urine Specific [place] 1.045 (1.000-1.030) Urine Protein NEG (NEG) Urine Glucose (UA) NEG (NEG) Urine Ketones NEG (NEG) Urine Occult Blood NEG (NEG) Urine Nitrite NEG (NEG) Urine Bilirubin NEG (NEG) Urine Urobilinogen NEG (NEG) Urine Leukocyte Esterase NEG (NEG) Urine WBC (Auto) 1-5 /hpf (0-5) Urine RBC (Auto) 0-4 /hpf (0-4) Urine Hyaline Casts (Auto) 1-5 /lpf (0-5) Urine Epithelial Cells (Auto) 0-5 /lpf (0-5) Urine Bacteria (Auto) NEG (NEG) Laboratory results per my review. Medications Administered Medications (Trade) Dose Ordered Sig/Kailash Route Start Time Stop Time Status Last Admin Dose Admin Acetaminophen (Tylenol Tab) 1,000 mg NOW STAT PO 09/11/17 12:59 09/11/17 13:00 DC 09/11/17 13:38 1,000 MG Sodium Chloride 1,000 ml @ 999 mls/hr Q1H1M STAT IV 09/11/17 12:59 09/11/17 13:59 DC 09/11/17 13:37 999 MLS/HR Ondansetron HCl (Zofran Inj) 4 mg NOW STAT IV 09/11/17 12:59 09/11/17 13:00 DC 09/11/17 13:38 4 MG Cefepime HCl 1000 mg/Dextrose 111.3 ml @ 200 mls/hr ONE IV 09/11/17 15:00 09/11/17 16:38 DC 09/11/17 16:38 200 MLS/HR Metronidazole (Flagyl / Nss) 500 mg NOW STAT IV 09/11/17 14:50 09/11/17 14:52 DC 09/11/17 15:22 500 MG Sodium Chloride 1,000 ml @ 999 mls/hr Q1H1M ONCE IV 09/11/17 16:15 09/11/17 17:15 DC 09/11/17 17:01 999 MLS/HR Hydrocortisone Sodium Succinate (Solu-Cortef IV) 50 mg 1605 STAT IV 09/11/17 16:05 09/11/17 16:32 DC 09/11/17 17:01 50 MG ED Course ED COURSE: Vital signs were reviewed and showed hypertension and fever. The patients medical record was reviewed The above diagnostic studies were performed and reviewed. ED treatments and interventions as stated above. 1242: The patient was evaluated in room C12. A complete history and physical examination was performed. 1259: Ordered Zofran Inj 4 mg IV, Sodium Chloride 1000 ml @ 999 mls/hr IV, Tylenol Tab 1000 mg PO 1450: I updated her at this time. She has not been taking Tylenol for her symptoms. Ordered Metronidazole 500 mg IV 1453: Upon reevaluation, the patient is resting. I discussed my findings with the patient and she understands and agrees with the treatment plan. Based on the patients age, coexisting illnesses, exam and lab findings the decision to treat as an inpatient was made. The patient remained stable while under my care. The patient will be evaluated by Dr. Patricia DAMON, for further management. 1500: Ordered Cefepime HCl 1000 mg/Dextrose 111.3 ml @ 200 mls/hr IV Medical Decision Differential diagnosis includes etiologies such as sepsis, UTI, pneumonia, metabolic, electrolyte abnormalities, cardiac sources, intracerebral event, toxicologic, neurologic, as well as others were entertained. Patient is a 71-year-old female who presents to the ER for crampy abdominal pain associated with vomiting and diarrhea. Previous cholecystectomy and complete hysterectomy. Admits to fevers. Abdominal exam shows no signs peritonitis. Significant transaminitis of 1000 along with an elevated T bili of 2. UA was unremarkable. Lipase is normal. CT of abdomen and pelvis shows no acute infectious process. Question if secondary to hepatitis. Not taking Tylenol. She was given Tylenol upon arrival. Fluids were given. Antibiotics were given for broad-spectrum coverage. Patient was updated bedside. She is admitted to internal medicine for further workup of hepatitis. Medication Reconcilliation Current Medication List: was personally reviewed by me Blood Pressure Screening Patient's blood pressure: Elevated blood pressure Blood pressure disposition: Elevated BP felt to be situational Consults Time Called: 1450 Consulting Physician: Dr. Patricia DAMON Returned Call: [phone] I reviewed the patient's case with him. He will evaluate the patient for further management. Impression Primary Impression: Hepatitis Additional Impression: Transaminitis Scribe Attestation The scribe's documentation has been prepared under my direction and personally reviewed by me in its entirety. I confirm that the note above accurately reflects all work, treatment, procedures, and medical decision making performed by me. Departure Information Dispostion Being Evaluated By Hospitalist Chad Frost M.D. (PCP) Patient Instructions My [facility] Problem Qualifiers
[2017-09-11 19:05] LABS: PROTHROMBIN TIME (PATIENT) 10.8 SECONDS (9.0-12.0)
[2017-09-11 19:20] VITALS: BP 156/81; PULSE 77; TEMP 37.1; O2SAT 95; Ht 157.5 cm; Wt 60.0 kg
[2017-09-11] MEDS ORDERED: CEFEPIME IV 1,000 MG in DEXTROSE 5% 100ML 100 ML IV ONE (20:00)
[2017-09-11] MEDS: SODIUM CHLORIDE 0.9% 1000ML 1,000 ML IV SCH (20:02)
[2017-09-11] MEDS: HYDROCORTISONE IV 50 MG in SYRINGE 0 ML IV SCH (20:02)
[2017-09-11] MEDS ORDERED: LORAZEPAM 0.5 MG TAB PO STA (20:31)
--- NOTE | 2017-09-11 21:13 | History and Physical ---
History & Physical Date of Service Sep 11, 2017. History & Physical admit #[id number]
[2017-09-11] MEDS ORDERED: ALBUTEROL HFA 8 GM INHALER INH PRN (21:15)
--- NOTE | 2017-09-11 21:40 | HISTORY & PHYSICAL EXAMINATION ---
DATE OF ADMISSION: 09/11/2017 ADMISSION HISTORY AND PHYSICAL CHIEF COMPLAINT: Abdominal pain, nausea, and vomiting. HISTORY OF PRESENT ILLNESS: The patient is a very pleasant 71-year-old female accompanied by her . She had an onset of nausea and vomiting this morning as well as fever. She had some upper abdominal pain as well. She notes that it felt like whenever she had gallstones before. She ate breakfast, she vomited and then started feeling lousy, she started having shakes that her described really describing rigors and then she checked her temperature and found that to be fairly elevated and came to the ER for further evaluation. At worst, the pain was a 9/10, now it is down to maybe about a 4/10, that is predominantly in her right upper abdomen. Her nausea and vomiting have resolved. REVIEW OF SYSTEMS: Positive for fevers, chills, and sweats. Positive for a degree of diarrhea in addition to the nausea and vomiting and incidentally positive for a purposeful 40-pound weight loss over may be the last year or so. REVIEW OF SYSTEMS: Otherwise negative, except for as above. PAST MEDICAL HISTORY: Includes rheumatoid arthritis, diabetes, she believes steroid-induced. Hypertension and asthma. MEDICATIONS: Include atenolol, furosemide, levothyroxine, methylprednisolone, spironolactone, hydroxychloroquine and I believe leflunomide, Lasix, spironolactone, atenolol, Advair, Spiriva, albuterol, vitamin C, iron, biotin, folate, and glimepiride. PAST SURGICAL HISTORY: She has had a cholecystectomy. She has had prior ERCP and stone removal. She has had a and hysterectomy. FAMILY HISTORY: Liver disease and biliary disease, although really more gallstone related. SOCIAL HISTORY: She is a never smoker, no alcohol. She lives at home with her who is very supportive. ALLERGIES: INCLUDE AMOXICILLIN, CLAVULANIC, GABAPENTIN, GOLD-CONTAINING DRUG PRODUCTS AND SULFA ANTIBIOTICS. PHYSICAL EXAMINATION: VITAL SIGNS: Temp 39, pulse 95, respiratory rate 18, blood pressure 143/74, 91-94% on room air. GENERAL: She is awake, alert, oriented x3, fatigued appearing, but otherwise in no acute distress. HEENT: Normocephalic, atraumatic. Mucous membranes are moist. CARDIOVASCULAR: Regular, maybe slightly tachycardic. No rubs, murmurs, or gallops. LUNGS: Clear to auscultation bilaterally. No rales, rhonchi, or wheezes with good effort. ABDOMEN: Soft, nondistended. She does have a right upper quadrant tenderness, but there is no guarding, no rebound, no Hart sign, no rigidity whatsoever and the remainder of her abdomen is benign. EXTREMITIES: Without cyanosis, clubbing or edema. No calf tenderness. SKIN: Shows no rashes, no pallor or icterus. NEUROLOGIC: Shows cranial nerves II-XII to be grossly intact. Gross motor and sensory are intact. MUSCULOSKELETAL: Yields no gross lesions. MENTAL STATUS: Shows good recent and remote recall. Normal mood and affect. Good judgment and insight. LABORATORY AND DIAGNOSTICS: CBC shows a white count of 9.66, hemoglobin 12.2, platelets 244. Complete metabolic panel with a sodium 134, potassium 3.5, chloride 99, CO2 25, BUN 16; creatinine 1.26, which appears to be around her baseline; calcium 9.5, glucose 123. Total bilirubin 1.9 with a direct of 1.4, AST 1282, ALT 977, alkaline phosphatase 629, total protein 6.9, albumin 3.6, lipase 272. PT of 10.8. Urinalysis - yellow, clear, specific gravity 1.045, otherwise, negative. CT abdomen and pelvis showed surgically absent gallbladder, surgically absent uterus, pneumobilia, no evidence of bowel obstruction, no evidence of free air, diverticulosis without diverticulitis, no evidence of appendicitis and of note on reviewing CT scans going back to her last CT abdomen and pelvis was in 2014, her gallbladder was absent then, and she did not have pneumobilia then. ASSESSMENT AND PLAN: 1. Pneumobilia and acute hepatitis. This seems to fit the best with cholangitis given that she has got fever, elevated bilirubin and right upper quadrant pain. I suspect she does not appear as septic as one would expect because of her immunosuppressants for her rheumatoid arthritis. We will be initiating cefepime and Flagyl. I have discussed the case with GI in case ERCP intervention is needed and I will be seeing her promptly. Will continue IV fluids and trend her labs including her LFTs. Hepatitis panel will be sent for completeness sake. 2. Chronic kidney disease. We will be hydrating well. Fortunately, her kidney numbers appear to be around her baseline of stage III, in spite of sepsis appearance. 3. Sepsis. Her systemic inflammatory response syndrome criteria included her temperature and her heart rate, relates to most likely the cholangitis, certainly the hepatitis as above. 4. Rheumatoid arthritis. We will be holding her home medications of stress-dosing steroids for now. 5. Hypertension. Hold home medications and follow. 6. Asthma. Continue albuterol p.r.n. 7. Deep venous thrombosis prophylaxis, heparin subQ. MTDD
[2017-09-11] MEDS ORDERED: VNTHFA/IN INH (22:20)
[2017-09-11] MEDS ORDERED: PLQ200 PO (22:20)
[2017-09-11] MEDS ORDERED: SPRIN/30 INH (22:20)
[2017-09-11] MEDS ORDERED: FERR1TAB23 PO (22:20)
[2017-09-11] MEDS ORDERED: XPNINS NEB (22:20)
[2017-09-11] MEDS ORDERED: SPR25 PO (22:20)
[2017-09-11] MEDS ORDERED: MDR4 PO (22:20)
[2017-09-11] MEDS ORDERED: ADVIN50/60 INH (22:20)
[2017-09-11] MEDS ORDERED: CALCTAB7 PO (22:20)
[2017-09-11] MEDS ORDERED: LEVO100T7 PO (22:20)
[2017-09-11] MEDS ORDERED: GLIM1TAB2 PO (22:20)
[2017-09-11] MEDS ORDERED: CHOL4POW11 PO (22:20)
[2017-09-11] MEDS ORDERED: CHOL1TAB42 PO (22:20)
[2017-09-11] MEDS ORDERED: DICL1GEL12 TOP (22:20)
--- NOTE | 2017-09-11 23:14 | DIAGNOSTIC IMAGING REPORT ---
MRCP CLINICAL HISTORY: Right upper quadrant pain, nausea and vomiting. Elevated liver function tests. COMPARISON STUDY: MRCP January 13, [address] of the abdomen and pelvis performed earlier today. TECHNIQUE: Utilizing a 1.5 Kiah magnet and dedicated coil, multiplanar, multi echo imaging of the upper abdomen was performed utilizing heavily T2 weighted pulsing sequences. No intravenous contrast was administered. FINDINGS: Caliber of the common bile duct is at the upper limits of normal status post cholecystectomy, measuring 7 mm. This exam is compromised due to motion artifact. In addition, evaluation for choledocholithiasis is difficult given pneumobilia. T2 hypointense foci are noted within the common bile duct which could reflect gas or small calculi. There is apparent moderate narrowing of the distal common bile duct with mild focal dilatation of the distal common bile duct. The gallbladder is surgically absent. Unenhanced images of the liver, spleen, adrenal glands and pancreas are unremarkable. There is no peripancreatic infiltration. There are symmetric moderate bilateral perinephric infiltration. IMPRESSION: 1. Technically difficult study to interpret given motion artifact and pneumobilia which makes evaluation for choledocholithiasis difficult. T2 hypointense foci within the common bile duct could reflect choledocholithiasis or pneumobilia. 2. Apparent moderate narrowing of the distal common bile duct. This may be artifactual although a stricture could appear similar. These findings could be correlated with ERCP as clinically indicated. Electronically signed by: Jonathan Carreon M.D. 09/11/2017 11:13 PM Dictated Date/Time: 09/11/2017 10:46 PM
[2017-09-11] MEDS: METRONIDAZOLE / NSS 500 MG in PREMIXED NSS 100 ML IV SCH (23:32)
[2017-09-11 23:34] VITALS: BP 146/81; PULSE 62; TEMP 36.9; O2SAT 95
[2017-09-12] MEDS: HYDROCORTISONE IV 50 MG in SYRINGE 0 ML IV SCH ×3 (04:22→20:27)
[2017-09-12] MEDS: CEFEPIME IV 2,000 MG in DEXTROSE 5% 100ML 100 ML IV SCH ×2 (06:11→20:27)
[2017-09-12 06:18] LABS: BASO % 0.1 %; BASO ABS # 0.01 K/uL (0-0.2); COMPLETE YES; HEMATOCRIT 32.2 % (37-47); IG% 0.3 %; LYMPH % 3.5 %; LYMPH ABS # 0.43 K/uL (1.2-3.4); MEAN CELL VOLUME 90.4 fL (80-100); MEAN CORPUSCULAR HEMOGLOBIN 30.3 pg (25-34); MEAN CORPUSCULAR HGB CONC 33.5 g/dl (32-36); MEAN PLATELET VOLUME 9.5 fL (7.4-10.4); MONO % 3.6 %; NEUT % 92.5 %; PLATELET COUNT 222 K/uL (130-400); RED BLOOD COUNT 3.56 M/uL (4.2-5.4); WHITE BLOOD COUNT 12.35 K/uL (4.8-10.8)
[2017-09-12 06:28] LABS: INR 1.1 (0.9-1.1); PROTHROMBIN TIME (PATIENT) 12.3 SECONDS (9.0-12.0)
[2017-09-12 06:46] LABS: BUN/CREATININE RATIO 16.6 (10-20); CALCIUM 8.1 mg/dl (8.5-10.1); CREATININE 1.17 mg/dl (0.60-1.20)
[2017-09-12] MEDS ORDERED: INDOMETHACIN 50 MG SUPP PR SCH (08:00)
[2017-09-12] MEDS: SODIUM CHLORIDE 0.9% 1000ML 1,000 ML IV SCH ×2 (08:58→13:30)
[2017-09-12] MEDS: METRONIDAZOLE / NSS 500 MG in PREMIXED NSS 100 ML IV SCH ×3 (08:58→23:41)
[2017-09-12] MEDS: HEPARIN SOD 5000 UNIT/0.5 ML CARP SQ SCH ×2 (09:00→20:30)
--- NOTE | 2017-09-12 10:15 | Gastroenterology Progress Note ---
Progress Note Date of Service: Sep 12, 2017 Subjective Pt evaluation today including: conversation w/ patient, physical exam, chart review, lab review Pt was seen and evaluated, chart reviewed. Pt offers no complaints this AM. She tells me she has very mild upper abdominal discomfort, worse with palpation. No longer having any nausea or vomiting. No black or bloody stools. VSS, afebrile. Mildly hypertensive this AM. Leukocytosis this AM despite broad spectrum ABX. TB up to 2.5, DB 2, AST 511, ALT 844, ALKP 482. MRCP: Technically difficult study to interpret given motion artifact and pneumobilia which makes evaluation for choledocholithiasis difficult. T2 hypointense foci within the common bile duct could reflect choledocholithiasis or pneumobilia. Apparent moderate narrowing of the distal common bile duct. This may be artifactual although a stricture could appear similar. These findings could be correlated with ERCP as clinically indicated. Review of Systems Constitutional: No fever, No chills Respiratory: No cough, No shortness of breath Cardiac: No chest pain, No edema Abdomen: + pain, No nausea, No vomiting, No diarrhea, No constipation, No GI bleeding Medications Current Inpatient Medications Medications (Trade) Dose Ordered Sig/Kailash Route Start Time Stop Time Status Last Admin Dose Admin Ioversol (Optiray 320) 100 ml UD PRN IV 09/11/17 13:15 09/15/17 13:14 Al Hydrox/Mg Hydrox/Simethicone (Maalox Max Susp) 15 ml Q4H PRN PO 09/11/17 16:15 10/11/17 16:14 Magnesium Hydroxide (Milk Of Magnesia Susp) 30 ml Q6H PRN PO 09/11/17 16:15 10/11/17 16:14 Polyethylene (Miralax Powder Packet) 17 gm DAILY PRN PO 09/11/17 16:15 10/11/17 16:14 Ondansetron HCl (Zofran Inj) 4 mg Q6H PRN IV 09/11/17 16:15 10/11/17 16:14 Cefepime HCl 2000 mg/Dextrose 112.5 ml @ 200 mls/hr Q12H IV 09/12/17 06:00 09/22/17 05:59 09/12/17 06:11 200 MLS/HR Metronidazole 500 mg/Prmx 100 ml @ 100 mls/hr Q8H IV 09/12/17 00:00 09/22/17 00:00 09/12/17 08:58 100 MLS/HR Hydrocortisone Sodium Succinate 50 mg/Syringe 1 ml @ 4 mls/min Q8@0400,1200,2000 IV 09/11/17 20:00 10/11/17 19:59 09/12/17 04:22 4 MLS/MIN Sodium Chloride 1,000 ml @ 100 mls/hr Q10H IV 09/11/17 17:30 10/11/17 17:29 09/12/17 08:58 100 MLS/HR Albuterol (Ventolin Hfa Inhaler) 1 puffs Q4 PRN INH 09/11/17 21:15 10/11/17 21:14 Heparin Sodium (Porcine) (Heparin Sq 5000 Unit/0.5ml) 5,000 unit Q12 SQ 09/12/17 09:00 10/12/17 08:59 Indomethacin (Indocin Suppository) 100 mg TODAY@0800 NC 09/12/17 08:00 09/12/17 16:00 Objective Vital Signs Date Time Temp Pulse Resp B/P (MAP) Pulse Ox O2 Delivery O2 Flow Rate FiO2 09/12/17 08:11 Room Air 09/12/17 00:00 Room Air 09/11/17 23:34 36.9 62 16 146/81 (102) 95 Room Air 09/11/17 20:40 Room Air 09/11/17 19:20 37.1 77 18 156/81 95 Room Air 09/11/17 18:56 81 18 123/65 94 09/11/17 18:17 81 18 123/65 94 Room Air 09/11/17 16:29 92 18 128/65 92 Room Air 09/11/17 14:38 39.0 95 18 143/74 91 Room Air 09/11/17 12:28 39.0 88 18 163/75 95 Room Air Physical Exam General Appearance: no apparent distress Eyes: PERRL ENT: hearing grossly normal Neck: supple, thyroid normal Respiratory/Chest: lungs clear, normal breath sounds Cardiovascular: regular rate, rhythm, no gallop Abdomen: normal bowel sounds, soft, no organomegaly, no pulsatile mass, + tenderness (mild RUQ) Neurologic/Psych: alert, normal mood/affect, oriented x 3 Skin: normal color, no jaundice Laboratory Results Last 24 Hours Test 09/11/17 13:10 09/11/17 13:23 09/11/17 15:55 09/11/17 18:30 White Blood Count 9.66 K/uL Red Blood Count 4.07 M/uL Hemoglobin 12.2 g/dL Hematocrit 36.8 % Mean Corpuscular Volume 90.4 fL Mean Corpuscular Hemoglobin 30.0 pg Mean Corpuscular Hemoglobin Concent 33.2 g/dl Platelet Count 244 K/uL Mean Platelet Volume 9.3 fL Neutrophils (%) (Auto) 89.3 % Lymphocytes (%) (Auto) 5.7 % Monocytes (%) (Auto) 4.2 % Eosinophils (%) (Auto) 0.2 % Basophils (%) (Auto) 0.3 % Neutrophils # (Auto) 8.62 K/uL Lymphocytes # (Auto) 0.55 K/uL Monocytes # (Auto) 0.41 K/uL Eosinophils # (Auto) 0.02 K/uL Basophils # (Auto) 0.03 K/uL RDW Standard Deviation 45.5 fL RDW Coefficient of Variation 13.7 % Immature Granulocyte % (Auto) 0.3 % Immature Granulocyte # (Auto) 0.03 K/uL Prothrombin Time 10.8 SECONDS Prothromb Time International Ratio 1.0 Sodium Level 134 mmol/L Potassium Level 3.5 mmol/L Chloride Level 99 mmol/L Carbon Dioxide Level 25 mmol/L Anion Gap 11.0 mmol/L Blood Urea Nitrogen 16 mg/dl Creatinine 1.26 mg/dl Est Creatinine Clear Calc Drug Dose 32.9 ml/min Estimated GFR () 50.0 Estimated GFR (Non- 43.1 BUN/Creatinine Ratio 12.9 Random Glucose 123 mg/dl Calcium Level 9.5 mg/dl Total Bilirubin 1.9 mg/dl Direct Bilirubin 1.4 mg/dl Aspartate Amino Transf (AST/SGOT) 1282 U/L Alanine Aminotransferase (ALT/SGPT) 977 U/L Alkaline Phosphatase 629 U/L Total Protein 6.9 gm/dl Albumin 3.6 gm/dl Lipase 272 U/L Hepatitis B Surface Antigen NEG Hepatitis C Antibody NEG Bedside Lactic Acid Venous 2.22 mmol/L Urine Color YELLOW Urine Appearance CLEAR Urine pH 6.0 Urine Specific [place] 1.045 Urine Protein NEG Urine Glucose (UA) NEG Urine Ketones NEG Urine Occult Blood NEG Urine Nitrite NEG Urine Bilirubin NEG Urine Urobilinogen NEG Urine Leukocyte Esterase NEG Urine WBC (Auto) 1-5 /hpf Urine RBC (Auto) 0-4 /hpf Urine Hyaline Casts (Auto) 1-5 /lpf Urine Epithelial Cells (Auto) 0-5 /lpf Urine Bacteria (Auto) NEG Test 09/12/17 05:49 White Blood Count 12.35 K/uL Red Blood Count 3.56 M/uL Hemoglobin 10.8 g/dL Hematocrit 32.2 % Mean Corpuscular Volume 90.4 fL Mean Corpuscular Hemoglobin 30.3 pg Mean Corpuscular Hemoglobin Concent 33.5 g/dl Platelet Count 222 K/uL Mean Platelet Volume 9.5 fL Neutrophils (%) (Auto) 92.5 % Lymphocytes (%) (Auto) 3.5 % Monocytes (%) (Auto) 3.6 % Eosinophils (%) (Auto) 0.0 % Basophils (%) (Auto) 0.1 % Neutrophils # (Auto) 11.42 K/uL Lymphocytes # (Auto) 0.43 K/uL Monocytes # (Auto) 0.45 K/uL Eosinophils # (Auto) 0.00 K/uL Basophils # (Auto) 0.01 K/uL RDW Standard Deviation 45.0 fL RDW Coefficient of Variation 13.5 % Immature Granulocyte % (Auto) 0.3 % Immature Granulocyte # (Auto) 0.04 K/uL Prothrombin Time 12.3 SECONDS Prothromb Time International Ratio 1.1 Sodium Level 138 mmol/L Potassium Level 4.0 mmol/L Chloride Level 107 mmol/L Carbon Dioxide Level 23 mmol/L Anion Gap 8.0 mmol/L Blood Urea Nitrogen 19 mg/dl Creatinine 1.17 mg/dl Est Creatinine Clear Calc Drug Dose 35.4 ml/min Estimated GFR () 54.7 Estimated GFR (Non- 47.2 BUN/Creatinine Ratio 16.6 Random Glucose 84 mg/dl Calcium Level 8.1 mg/dl Total Bilirubin 2.5 mg/dl Direct Bilirubin 2.0 mg/dl Aspartate Amino Transf (AST/SGOT) 511 U/L Alanine Aminotransferase (ALT/SGPT) 846 U/L Alkaline Phosphatase 482 U/L Total Protein 5.5 gm/dl Albumin 2.7 gm/dl Globulin 2.8 gm/dl Albumin/Globulin Ratio 1.0 Assessment and Plan Patient is a 71 year old female with history of gallstones, s/p cholecystectomy in 2004 with choledocholithiasis in 2010 requiring ERCP who presented to the ED today for evaluation of abrupt onset RUQ pain, fever, chills, rigors, nausea and vomiting - "I feel exactly the same as when I had a stone stuck before". VSS , pt is febrile, transaminitis with TB 1.7 and DB 1.4. Lipase WNL. Kidney function good. choledocholithiasis vs viral induced injury vs other. Will proceed with serology and MRCP. MRCP suggestive of choledocholithiasis and stricture. TB 2.5, DB 2 with transaminiti NPO ERCP today Indocin suppository to be administered in the OR Continue broad spectrum ABX for cholangitis coverage Follow up serology that was ordered daily LFTs Please obtain stool culture, c.diff if loose stools return Please call us immediately if any change in clinical status like hypotension or sepsis. GI to follow, please call with any questions or concerns. I performed a history and physical examination of the patient, I have discussed the patient's management with Edwina. Please refer to the PA's note for the documented findings and plan of care. MRCP suggestive of choledocholithiasis/ stricture. Her WBC and bilirubin is rising concerning for ascending cholangitis thought she is clinically stable. Will plan for ERCP today. Continue ABx.
--- NOTE | 2017-09-12 11:38 | DIAGNOSTIC IMAGING REPORT ---
CHEST ONE VIEW PORTABLE CLINICAL HISTORY: Preoperative chest COMPARISON STUDY: No previous studies for comparison. FINDINGS: The cardiac and mediastinal contours are normal. There is no evidence of focal pulmonary consolidation. There is no evidence of failure. No pleural effusions are visualized.[ There are no left-sided rib deformity. There is minor left midlung zone scarring. IMPRESSION: No active disease in the chest. Electronically signed by: Jose Zimmerman M.D. 09/12/2017 11:37 AM Dictated Date/Time: 09/12/2017 11:34 AM
--- NOTE | 2017-09-12 11:50 | Hospitalist Progress Note ---
Hospitalist Progress Note Date of Service Sep 12, 2017. Subjective Pt evaluation today including: conversation w/ patient, conversation w/ family , physical exam, chart review, lab review, review of studies Pain: None PO Intake: NPO Voiding: no voiding problems The patient was seen and examined this morning. Pt reports doing well today, her pain is much better controlled today compared to yesterday. She is anticipating ERCP this afternoon, scheduled with Dr. Doll. Her is present at bedside and all their questions and concerns were addressed. She denies fever, chills or sweats. No bloating. She is passing gas and had a BM this morning. She denies any nausea or vomiting. Pt reports her lower back chronically has pain, but that she recieves injections for this as an outpatient with pain management. Last was in March, and she has another scheduled for October. Pt has 9 feral cats which live in her house, but when she gets scratched by them she is not allowed to receive the injections. Pt reports she understands but wants to keep her cats. ROS: 6 point ROS was reviewed and otherwise negative. Objective Vital Signs Date Time Temp Pulse Resp B/P (MAP) Pulse Ox O2 Delivery O2 Flow Rate FiO2 09/12/17 08:11 Room Air 09/12/17 00:00 Room Air 09/11/17 23:34 36.9 62 16 146/81 (102) 95 Room Air 09/11/17 20:40 Room Air 09/11/17 19:20 37.1 77 18 156/81 95 Room Air 09/11/17 18:56 81 18 123/65 94 09/11/17 18:17 81 18 123/65 94 Room Air 09/11/17 16:29 92 18 128/65 92 Room Air 09/11/17 14:38 39.0 95 18 143/74 91 Room Air 09/11/17 12:28 39.0 88 18 163/75 95 Room Air Physical Exam General Appearance: WD/WN, no apparent distress Eyes: PERRL, EOMI ENT: hearing grossly normal, pharynx normal Neck: supple, no JVD Respiratory/Chest: lungs clear, no respiratory distress, no accessory muscle use Cardiovascular: regular rate, rhythm, no JVD, no murmur Abdomen: normal bowel sounds, non tender, soft Extremities: non-tender, no pedal edema, no calf tenderness Neurologic/Psychiatric: alert, normal mood/affect, oriented x 3 Skin: normal color, warm/dry Laboratory Results Last 24 Hours Test 09/11/17 13:10 09/11/17 13:23 09/11/17 15:55 09/11/17 18:30 White Blood Count 9.66 K/uL Red Blood Count 4.07 M/uL Hemoglobin 12.2 g/dL Hematocrit 36.8 % Mean Corpuscular Volume 90.4 fL Mean Corpuscular Hemoglobin 30.0 pg Mean Corpuscular Hemoglobin Concent 33.2 g/dl Platelet Count 244 K/uL Mean Platelet Volume 9.3 fL Neutrophils (%) (Auto) 89.3 % Lymphocytes (%) (Auto) 5.7 % Monocytes (%) (Auto) 4.2 % Eosinophils (%) (Auto) 0.2 % Basophils (%) (Auto) 0.3 % Neutrophils # (Auto) 8.62 K/uL Lymphocytes # (Auto) 0.55 K/uL Monocytes # (Auto) 0.41 K/uL Eosinophils # (Auto) 0.02 K/uL Basophils # (Auto) 0.03 K/uL RDW Standard Deviation 45.5 fL RDW Coefficient of Variation 13.7 % Immature Granulocyte % (Auto) 0.3 % Immature Granulocyte # (Auto) 0.03 K/uL Prothrombin Time 10.8 SECONDS Prothromb Time International Ratio 1.0 Sodium Level 134 mmol/L Potassium Level 3.5 mmol/L Chloride Level 99 mmol/L Carbon Dioxide Level 25 mmol/L Anion Gap 11.0 mmol/L Blood Urea Nitrogen 16 mg/dl Creatinine 1.26 mg/dl Est Creatinine Clear Calc Drug Dose 32.9 ml/min Estimated GFR () 50.0 Estimated GFR (Non- 43.1 BUN/Creatinine Ratio 12.9 Random Glucose 123 mg/dl Calcium Level 9.5 mg/dl Total Bilirubin 1.9 mg/dl Direct Bilirubin 1.4 mg/dl Aspartate Amino Transf (AST/SGOT) 1282 U/L Alanine Aminotransferase (ALT/SGPT) 977 U/L Alkaline Phosphatase 629 U/L Total Protein 6.9 gm/dl Albumin 3.6 gm/dl Lipase 272 U/L Hepatitis B Surface Antigen NEG Hepatitis C Antibody NEG Bedside Lactic Acid Venous 2.22 mmol/L Urine Color YELLOW Urine Appearance CLEAR Urine pH 6.0 Urine Specific [place] 1.045 Urine Protein NEG Urine Glucose (UA) NEG Urine Ketones NEG Urine Occult Blood NEG Urine Nitrite NEG Urine Bilirubin NEG Urine Urobilinogen NEG Urine Leukocyte Esterase NEG Urine WBC (Auto) 1-5 /hpf Urine RBC (Auto) 0-4 /hpf Urine Hyaline Casts (Auto) 1-5 /lpf Urine Epithelial Cells (Auto) 0-5 /lpf Urine Bacteria (Auto) NEG Test 09/12/17 05:49 White Blood Count 12.35 K/uL Red Blood Count 3.56 M/uL Hemoglobin 10.8 g/dL Hematocrit 32.2 % Mean Corpuscular Volume 90.4 fL Mean Corpuscular Hemoglobin 30.3 pg Mean Corpuscular Hemoglobin Concent 33.5 g/dl Platelet Count 222 K/uL Mean Platelet Volume 9.5 fL Neutrophils (%) (Auto) 92.5 % Lymphocytes (%) (Auto) 3.5 % Monocytes (%) (Auto) 3.6 % Eosinophils (%) (Auto) 0.0 % Basophils (%) (Auto) 0.1 % Neutrophils # (Auto) 11.42 K/uL Lymphocytes # (Auto) 0.43 K/uL Monocytes # (Auto) 0.45 K/uL Eosinophils # (Auto) 0.00 K/uL Basophils # (Auto) 0.01 K/uL RDW Standard Deviation 45.0 fL RDW Coefficient of Variation 13.5 % Immature Granulocyte % (Auto) 0.3 % Immature Granulocyte # (Auto) 0.04 K/uL Prothrombin Time 12.3 SECONDS Prothromb Time International Ratio 1.1 Sodium Level 138 mmol/L Potassium Level 4.0 mmol/L Chloride Level 107 mmol/L Carbon Dioxide Level 23 mmol/L Anion Gap 8.0 mmol/L Blood Urea Nitrogen 19 mg/dl Creatinine 1.17 mg/dl Est Creatinine Clear Calc Drug Dose 35.4 ml/min Estimated GFR () 54.7 Estimated GFR (Non- 47.2 BUN/Creatinine Ratio 16.6 Random Glucose 84 mg/dl Calcium Level 8.1 mg/dl Total Bilirubin 2.5 mg/dl Direct Bilirubin 2.0 mg/dl Aspartate Amino Transf (AST/SGOT) 511 U/L Alanine Aminotransferase (ALT/SGPT) 846 U/L Alkaline Phosphatase 482 U/L Total Protein 5.5 gm/dl Albumin 2.7 gm/dl Globulin 2.8 gm/dl Albumin/Globulin Ratio 1.0 Assessment and Plan 71 yo F with PMHx of gallstones, s/p cholecystectomy in 2004, with choledocholithiasis in 2010 s/p ERCP. Presented with acute onset n/v, pain, fever and chills. MRCP suggestive of choledocholithiasis and stricture. Sepsis due to Choledocholithiasis / Pneumobilia / Acute hepatitis - Planning ERCP this afternoon per Edwina Hernández PA-C with Dr. Doll - pt follows routinely with him as an outpatient. - LFTs are slightly improved today but still elevated. - Imaging of MRCP reviewed. - NPO until after procedure - Pain well controlled - Continue cefepime and flagyl - Follow hepatitis panels RA - Holding immunosuppressants (leflunamide) - Continue plaquenil - holding her home medications of stress-dosing steroids for now. Chronic kidney disease, stg III - Continue maintenance fluids, Cr. appears to be at baseline. Hypertension - Hold home medications and follow. Holding lasix 20 mg PO daily. Asthma - Continue albuterol p.r.n. DVT ppx: heparin subq, teds, scds CODE STATUS: FULL CODE Disposition: From home, lives with
--- NOTE | 2017-09-12 14:49 | Endo History and Physical ---
History & Physical Date of Service: Sep 12, 2017. Chief Complaint: Abdominal pain Referring Physician: History of Present Illness Patient presented with abdominal discomfort and significant elevation of her liver associated enzymes done to have possible filling defects and MRCP. ERCP has been requested for suspected cholangitis and gallstones. Past Medical History Arthritis, Asthma, Reflux, Hypertension, Thyroid Disease, Chronic Steroid Use, Kidney Disease Past Surgical History Hx Cardiac Surgery: No Hx Internal Defibrillator: No Hx Pacemaker: No Hx Post-Op Nausea and Vomiting: No Hx Cancer Surgery: No Hx Thoracic Surgery: No Hx Orthopedic: No Hx Urinary Tract Surgery: No Social History Smoking Status: Never Smoker Smokeless Tobacco Use: No Hx Substance Use: No Hx Alcohol Use: No Allergies Coded Allergies: Gabapentin (Unverified Allergy, Mild, DELIRIUM, 09/11/17) Amoxicillin (Verified Allergy, Unknown, SEVERE RHEUMATOID ARTHRITIC SYMPTOMS, 09/11/17) Clavulanic Acid (Verified Allergy, Unknown, SEVERE RHEUMATOID ARTHRITIC SYMPTOMS, 09/11/17) Gold-containing Drug Products (Verified Allergy, Unknown, RIDAURA ( AURANOFIN), 09/11/17) Sulfa Antibiotics (Verified Adverse Reaction, Unknown, "give me anxiety", 09/11/17) Current Medications Reported Home Medications Medications Dose Route/Sig Max Daily Dose Days Date Category Voltaren 1% Top Gel (Diclofenac Sodium (Topical)) 1 % Gel 1 Appln TOP QID 08/13/17 Reported Vitamin D (Cholecalciferol) 5,000 Unit Tab 5,000 Units PO DAILY 08/13/17 Reported Spironolactone 25 Mg Tab 25 Mg PO DAILY 08/13/17 Reported Methylprednisolone 4 Mg Tab 8 Mg PO DAILY 08/13/17 Reported Levothyroxine Sodium 100 Mcg Tab 100 Mg PO DAILY 08/13/17 Reported Levalbuterol HCl (Levalbuterol) 0.63 Mg/3 Ml Nebu 1 Unit NEB Q4H PRN 08/13/17 Reported Hydroxychloroquine Sulfat (Hydroxychloroquine Sulfate) 200 Mg Tab 1.5 Tab PO DAILY 08/13/17 Reported Glimepiride 1 Mg Tab 1 Mg PO DAILY 08/13/17 Reported Iron (Ferrous Sulfate) 325 Mg Tab 1 Tab PO DAILY 08/13/17 Reported Questran (Cholestyramine) 4 Gm Pow 1 Pkt PO BID PRN 08/13/17 Reported Caltrate 600 Plus (Calcium Carbonate-Vitamin D W/) 1 Tab Tab 1 Tab PO BID 08/13/17 Reported Ventolin Hfa (Albuterol) 200 Puffs/52888 Mcg Aers 2 Puffs INH Q4 PRN 08/13/17 Reported Spiriva Handihaler (Tiotropium [place]) 30 Puff/540 Mcg Aerp 1 Cap INH DAILY 08/13/17 Reported Advair Diskus 500/50 60 Dose (Fluticasone Prop/Salmeterol) 1 Ea Aerp 1 Puff INH BID 08/13/17 Reported Ultram (Tramadol HCl) 50 Mg Tab 1 Tab PO TID PRN 30 04/05/17 Reported Vitamin B-12 (Cyanocobalamin) 1,000 Mcg Tab 1,000 Mcg PO BID 11/29/16 Reported Arava (Leflunomide) 20 Mg Tab 1 Tab PO NOON 30 11/03/16 Reported Lasix (Furosemide) 20 Mg Tab 20 Mg PO QAM 11/26/14 Reported Vitamin C (Ascorbic Acid) 500 Mg Tab 500 Mg PO HS 07/15/14 Reported Tenormin (Atenolol) 25 Mg Tab 25 Mg PO QAM 01/13/11 Reported Vital Signs Weight (Kilograms): 60.000 Height (Feet): 5 Height (Inches): 2.00 Date Time Temp Pulse Resp B/P (MAP) Pulse Ox O2 Delivery O2 Flow Rate FiO2 09/12/17 08:11 Room Air 09/12/17 00:00 Room Air 09/11/17 23:34 36.9 62 16 146/81 (102) 95 Room Air 09/11/17 20:40 Room Air 09/11/17 19:20 37.1 77 18 156/81 95 Room Air 09/11/17 18:56 81 18 123/65 94 09/11/17 18:17 81 18 123/65 94 Room Air 09/11/17 16:29 92 18 128/65 92 Room Air Physical Exam General Appearance: + mild distress Respiratory/Chest: Auscultation: breath sounds normal Cardiovascular: Heart Auscultation: RRR Abdomen: Inspection & Palpation: RUQ tenderness Assessment and Plan Patient with a history suspicious for mild cholangitis and choledocholithiasis. We are proceeding with ERCP today for biliary decompression. We discussed the risks to include bleeding, infection, perforation and pancreatitis.
[2017-09-12] MEDS ORDERED: INDOMETHACIN 50 MG SUPP PR ONE ×2 (15:15→15:45)
--- NOTE | 2017-09-12 16:30 | GI REPORT ---
Procedure Date: 09/12/2017 3:29 PM Procedure: ERCP Indications: Abnormal MRCP, Suspected ascending cholangitis Medicines: General Anesthesia Complications: No immediate complications. Estimated blood loss: Minimal. Estimated Blood Loss: Estimated blood loss was minimal. Procedure: Pre-Anesthesia Assessment: - Prior to the procedure, a History and Physical was performed, and patient medications, allergies and sensitivities were reviewed. The patient's tolerance of previous anesthesia was reviewed. - The risks and benefits of the procedure and the sedation options and risks were discussed with the patient. All questions were answered and informed consent was obtained. - Patient identification and proposed procedure were verified prior to the procedure by the physician, the nurse and the fiscal accounting clerk. The procedure was verified in the procedure room. - Pre-procedure physical examination revealed no contraindications to sedation. - ASA Grade Assessment: III - A patient with severe systemic disease. - After reviewing the risks and benefits, the patient was deemed in satisfactory condition to undergo the procedure. - The anesthesia plan was to use general anesthesia. - Immediately prior to administration of medications, the patient was re-assessed for adequacy to receive sedatives. - The heart rate, respiratory rate, oxygen saturations, blood pressure, adequacy of pulmonary ventilation, and response to care were monitored throughout the procedure. - The physical status of the patient was re-assessed after the procedure. After obtaining informed consent, the scope was passed under direct vision. Throughout the procedure, the patient's blood pressure, pulse, and oxygen saturations were monitored continuously. The Scope was introduced through the mouth, and advanced to the duodenum and used to inject contrast into the bile duct. The ERCP was accomplished without difficulty. The patient tolerated the procedure well. Findings: A government affairs director film of the abdomen was obtained. Surgical clips, consistent with previous cholecystectomy, were seen in the area of the right upper quadrant of the abdomen. The total fluoroscopy exposure time was 1 minute and 31 seconds. The major papilla was located entirely within a diverticulum. A biliary sphincterotomy had been performed. The sphincterotomy appeared stenosed or narrowed. The bile duct was deeply cannulated with the short-nosed traction sphincterotome (Omni 35) and 0.035 in Acrobat guidewire. Contrast was injected. I personally interpreted the bile duct images. Contrast extended to the hepatic ducts. A cholecystectomy had been performed. The main bile duct was moderately dilated. The largest diameter was 10 mm. The main bile duct contained filling defect(s) thought to be a stone and sludge. The biliary sphincterotomy was extended with a monofilament short-tip traction sphincterotome using ERBE electrocautery. There was no post-sphincterotomy bleeding. The lower third of the main bile duct was successfully dilated with an 8 mm balloon dilator held inflated for 3 minutes. To discover objects, the biliary tree was swept with a 15 mm balloon starting at the distal duct and working up to the bifurcation over several sweeps. Sludge was swept from the duct. A few stones were removed. No stones remained. Pus was swept from the duct. One 7 Fr by 7 cm biliary stent with a full external pigtail and a full internal pigtail was placed 6.5 cm into the common bile duct. Bile flowed through the stent. The stent was in good position. One 7 Fr by 4 cm biliary stent with a full external pigtail and a full internal pigtail was placed 4 cm into the common bile duct. Bile flowed through the stent. The stent was in good position. The endoscope was withdrawn from the patient. The endoscope was withdrawn from the patient. Impression: - The major papilla was located entirely within a diverticulum. - Prior biliary endoscopic sphincterotomy appeared stenosed or narrowed. - The patient has had a cholecystectomy. - The entire main bile duct was moderately dilated. - A filling defect consistent with a stone and sludge was seen on the cholangiogram. - A sphincterotomy was extended. - The lower third of the main bile duct was successfully dilated to 8 mm - Choledocholithiasis was found. Complete removal was accomplished by biliary sphincterotomy - Two biliary stents were placed into the common bile duct. Recommendation: - [facility]. - Clear liquid diet today. - Use broad spectrum antibiotics for 2 weeks. - Repeat ERCP in 4 weeks to remove stent. Griffin Doll D.O. Griffin Doll, 09/12/2017 4:30:37 PM This report has been signed electronically. Myra Xiong MD Note Initiated On: 09/12/2017 3:29 PM I attest to the content of the Intraoperative Record and orders documented therein, exceptions below
--- NOTE | 2017-09-12 16:31 | [facility] Post Operative Brief Note ---
Immediate Operative Summary Operative Date Sep 12, 2017. Pre-Operative Diagnosis cholangitis Post-Operative Diagnosis cholangitis and gall stones Procedure(s) Performed Endoscopic Retrograde Cholangiopancreatogram Surgeon Dr. Cy Doll Rug Inspector Surgeon(s) Dr. Cy Xiong Estimated Blood Loss 0mL Findings Dilated CBD Several Gallstones / pus in CBD consistent with cholangitis Specimens none per surgeon Drains 2 biliary stent (internal) Anesthesia General Complication(s) None Disposition Recovery Room / PACU
[2017-09-12] MEDS ORDERED: FLUMAZENIL 0.1 MG/1 ML 10 ML VIAL IV PRN (16:45)
[2017-09-12] MEDS ORDERED: FENTANYL CITRATE INJ 50 MCG/1 ML 2 ML VIAL IV PRN (16:45)
[2017-09-12] MEDS ORDERED: HydrALAZINE HCL 20 MG/ML VIAL IV. PRN (16:45)
[2017-09-12] MEDS ORDERED: ONDANSETRON INJ 2 MG/ML 2 ML VIAL IV PRN (16:45)
[2017-09-12] MEDS ORDERED: LABETALOL HCL IV 5 MG/ML 20ML IV PRN (16:45)
[2017-09-12] MEDS ORDERED: NALOXONE HCL 0.4 MG/1 ML VIAL/CARP IV PRN (16:45)
[2017-09-12] MEDS ORDERED: ATROPINE SULFATE 0.1 MG/ML 5ML SYR IV PRN (16:45)
[2017-09-12] MEDS ORDERED: EpHEDrine SULFATE INJ 50 MG/ML AMP IV PRN (16:45)
[2017-09-12] MEDS ORDERED: HydrALAZINE HCL 20 MG/ML VIAL ONE (16:47)
[2017-09-12] MEDS ORDERED: HydrALAZINE HCL 20 MG/ML VIAL IV. STA (17:14)
--- NOTE | 2017-09-12 17:16 | DIAGNOSTIC IMAGING REPORT ---
ERCP BILIARY DUCTAL HISTORY: 71 years-old Female EXPLORE DUCTS status post ERCP right upper quadrant pain with nausea and vomiting COMPARISON: MRCP 09/11/2017 TECHNIQUE: 13 spot fluoroscopic images of the right upper abdomen were obtained with ERCP utilizing 91.5 seconds fluoroscopy time. FINDINGS: Endoscope is present. There is deployment of a guidewire and catheter into the common bile duct and right common intrahepatic duct with injection of contrast. Mildly dilated common bile duct is again seen with multiple filling defects suggesting choledocholithiasis or pneumobilia. Mild narrowing of the mid common bile duct is noted on images 4 and 5, suspicious for possible stricture. Opacification of the common bile duct on image 11 demonstrates opacified common bile duct without focal filling defects suggesting stone removal. The latter images demonstrate placement of 2 J-shaped structures appearing to be biliary stents within the common bile duct. IMPRESSION: Fluoroscopic assistance as above. Please see procedural report for further details. The above report was generated using voice recognition software. It may contain grammatical, syntax or spelling errors. Electronically signed by: Garfield Fernandez M.D. 09/12/2017 5:15 PM Dictated Date/Time: 09/12/2017 5:10 PM
--- NOTE | 2017-09-12 17:33 | Anesthesiology Progress Note ---
Anesthesia Post Op Note Date & Time Sep 12, 2017 at 17:33 Vital Signs Pain Intensity: 0 Vital Signs Past 12 Hours Date Time Temp Pulse Resp B/P (MAP) Pulse Ox O2 Delivery O2 Flow Rate FiO2 09/12/17 17:21 36.5 09/12/17 17:21 158/95 09/12/17 17:19 71 13 09/12/17 17:19 71 13 99 09/12/17 17:16 149/83 09/12/17 17:14 71 16 97 09/12/17 17:14 73 16 09/12/17 17:13 69 16 09/12/17 17:13 69 16 97 09/12/17 17:11 167/77 09/12/17 17:09 172/74 09/12/17 17:08 71 12 09/12/17 17:08 71 12 98 09/12/17 17:06 170/82 09/12/17 17:03 68 14 09/12/17 17:03 68 14 99 09/12/17 17:02 171/77 09/12/17 16:58 67 16 98 09/12/17 16:58 68 16 09/12/17 16:57 130/90 09/12/17 16:55 63 12 100 09/12/17 16:55 65 12 09/12/17 16:52 190/86 09/12/17 16:50 65 15 100 09/12/17 16:50 64 15 09/12/17 16:47 176/81 09/12/17 16:45 67 15 09/12/17 16:45 65 15 100 09/12/17 16:41 170/87 09/12/17 16:40 68 15 98 09/12/17 16:40 68 15 09/12/17 16:37 168/86 09/12/17 16:35 36.2 70 16 168/86 100 Oxymask 5 09/12/17 08:11 Room Air Notes Mental Status: alert / awake / arousable, participated in evaluation Pt Amnestic to Procedure: Yes Nausea / Vomiting: adequately controlled Pain: adequately controlled Airway Patency, RR, SpO2: stable & adequate BP & HR: stable & adequate Hydration State: stable & adequate Anesthetic Complications: no major complications apparent
[2017-09-12 18:00] VITALS: BP 171/77; PULSE 88; TEMP 36.7; O2SAT 98
[2017-09-12 18:30] VITALS: BP 155/96; PULSE 89; TEMP 36.8; O2SAT 95
[2017-09-12 19:51] VITALS: BP 119/54; PULSE 69; TEMP 37.7; O2SAT 92
[2017-09-12 20:28] VITALS: BP 144/73; PULSE 85; TEMP 36.7; O2SAT 95
[2017-09-12 21:36] VITALS: BP 163/71; PULSE 73; TEMP 36.8; O2SAT 99
[2017-09-12 23:43] VITALS: BP 158/75; PULSE 64; TEMP 36.8; O2SAT 95
[2017-09-13] MEDS ORDERED: NURSING VERBAL MED ORDER ONE (03:15)
[2017-09-13] MEDS ORDERED: HYDROmorphone INJ 0.5 MG/0.5 ML SYR IV STA (03:22)
[2017-09-13] MEDS ORDERED: hydrOXYzine HCL 10 MG TAB PO PRN (03:30)
[2017-09-13] MEDS: SODIUM CHLORIDE 0.9% 1000ML 1,000 ML IV SCH (03:33)
[2017-09-13] MEDS: HYDROCORTISONE IV 50 MG in SYRINGE 0 ML IV SCH ×2 (03:38→12:37)
[2017-09-13] MEDS: CEFEPIME IV 2,000 MG in DEXTROSE 5% 100ML 100 ML IV SCH (05:39)
[2017-09-13 07:43] VITALS: BP 157/78; PULSE 71; TEMP 36.5; O2SAT 95
[2017-09-13] MEDS: METRONIDAZOLE / NSS 500 MG in PREMIXED NSS 100 ML IV SCH (07:49)
[2017-09-13] MEDS: HEPARIN SOD 5000 UNIT/0.5 ML CARP SQ SCH (07:52)
[2017-09-13 08:00] VITALS: O2SAT 95
[2017-09-13 08:52] LABS: BASO % 0.2 %; BASO ABS # 0.02 K/uL (0-0.2); COMPLETE YES; HEMATOCRIT 33.9 % (37-47); IG% 0.3 %; LYMPH % 4.7 %; LYMPH ABS # 0.55 K/uL (1.2-3.4); MEAN CELL VOLUME 90.2 fL (80-100); MEAN CORPUSCULAR HEMOGLOBIN 29.8 pg (25-34); MEAN PLATELET VOLUME 9.8 fL (7.4-10.4); MONO % 4.5 %; NEUT % 90.3 %; PLATELET COUNT 235 K/uL (130-400); RED BLOOD COUNT 3.76 M/uL (4.2-5.4); WHITE BLOOD COUNT 11.69 K/uL (4.8-10.8)
[2017-09-13 09:12] LABS: CREATININE 1.35 mg/dl (0.60-1.20)
[2017-09-13 09:13] LABS: BUN/CREATININE RATIO 17.3 (10-20); CALCIUM 8.3 mg/dl (8.5-10.1); POTASSIUM 3.8 mmol/L (3.5-5.1)
--- NOTE | 2017-09-13 09:15 | Gastroenterology Progress Note ---
Progress Note Date of Service: Sep 13, 2017 Subjective Pt evaluation today including: conversation w/ patient, physical exam, chart review, lab review Pt seen and evaluated, chart reviewed. No acute events overnight. Had some mild abdominal pain after ERCP which has since subsided. Pt feels well this AM. Had clears for breakfast, tolerated. No abd pain, nausea, vomiting. Notes some loose stools this AM. No black or bloody stools. Wants to go home. No fever, chills, CP, SOB ERCP 09/12/17: biliary stenosis, choledocholithiasis, two stents placed in CBD Review of Systems Constitutional: No fever, No chills Respiratory: No cough Cardiac: No chest pain Abdomen: No pain, No nausea, No vomiting, No diarrhea Medications Current Inpatient Medications Medications (Trade) Dose Ordered Sig/Kailash Route Start Time Stop Time Status Last Admin Dose Admin Ioversol (Optiray 320) 100 ml UD PRN IV 09/11/17 13:15 09/15/17 13:14 Al Hydrox/Mg Hydrox/Simethicone (Maalox Max Susp) 15 ml Q4H PRN PO 09/11/17 16:15 10/11/17 16:14 Magnesium Hydroxide (Milk Of Magnesia Susp) 30 ml Q6H PRN PO 09/11/17 16:15 10/11/17 16:14 Polyethylene (Miralax Powder Packet) 17 gm DAILY PRN PO 09/11/17 16:15 10/11/17 16:14 Ondansetron HCl (Zofran Inj) 4 mg Q6H PRN IV 09/11/17 16:15 10/11/17 16:14 Cefepime HCl 2000 mg/Dextrose 112.5 ml @ 200 mls/hr Q12H IV 09/12/17 06:00 09/22/17 05:59 09/13/17 05:39 200 MLS/HR Metronidazole 500 mg/Prmx 100 ml @ 100 mls/hr Q8H IV 09/12/17 00:00 09/22/17 00:00 09/13/17 07:49 100 MLS/HR Hydrocortisone Sodium Succinate 50 mg/Syringe 1 ml @ 4 mls/min Q8@0400,1200,2000 IV 09/11/17 20:00 10/11/17 19:59 09/13/17 03:38 4 MLS/MIN Sodium Chloride 1,000 ml @ 100 mls/hr Q10H IV 09/11/17 17:30 10/11/17 17:29 09/13/17 03:33 100 MLS/HR Albuterol (Ventolin Hfa Inhaler) 1 puffs Q4 PRN INH 09/11/17 21:15 10/11/17 21:14 Heparin Sodium (Porcine) (Heparin Sq 5000 Unit/0.5ml) 5,000 unit Q12 SQ 09/12/17 09:00 10/12/17 08:59 09/13/17 07:52 5,000 UNIT Objective Vital Signs Date Time Temp Pulse Resp B/P (MAP) Pulse Ox O2 Delivery O2 Flow Rate FiO2 09/13/17 08:00 95 Room Air 09/13/17 07:43 36.5 71 20 157/78 (104) 95 Room Air 09/13/17 00:00 Room Air 09/12/17 23:43 36.8 64 16 158/75 (102) 95 09/12/17 21:36 36.8 73 18 163/71 (101) 99 Room Air 09/12/17 20:28 36.7 85 18 144/73 (96) 95 Room Air 09/12/17 19:51 37.7 69 18 119/54 (75) 92 Room Air 09/12/17 18:30 36.8 89 16 155/96 (115) 95 Room Air 09/12/17 18:00 98 Room Air 09/12/17 18:00 98 Room Air 09/12/17 18:00 36.7 88 16 171/77 (108) 98 Room Air 09/12/17 17:46 153/82 09/12/17 17:43 77 20 98 09/12/17 17:43 76 20 09/12/17 17:38 75 16 98 09/12/17 17:38 76 16 09/12/17 17:36 160/78 09/12/17 17:33 74 16 99 09/12/17 17:33 75 16 09/12/17 17:32 74 16 98 09/12/17 17:32 75 16 09/12/17 17:31 155/86 09/12/17 17:27 73 16 98 09/12/17 17:27 74 16 09/12/17 17:26 147/83 10/31/17 17:22 74 16 98 09/12/17 17:22 74 16 09/12/17 17:21 36.5 09/12/17 17:21 158/95 09/12/17 17:19 71 13 09/12/17 17:19 71 13 99 09/12/17 17:16 149/83 09/12/17 17:14 71 16 97 09/12/17 17:14 73 16 09/12/17 17:13 69 16 09/12/17 17:13 69 16 97 09/12/17 17:11 167/77 09/12/17 17:09 172/74 09/12/17 17:08 71 12 09/12/17 17:08 71 12 98 09/12/17 17:06 170/82 09/12/17 17:03 68 14 09/12/17 17:03 68 14 99 09/12/17 17:02 171/77 09/12/17 16:58 67 16 98 09/12/17 16:58 68 16 09/12/17 16:57 130/90 09/12/17 16:55 63 12 100 09/12/17 16:55 65 12 09/12/17 16:52 190/86 09/12/17 16:50 65 15 100 09/12/17 16:50 64 15 09/12/17 16:47 176/81 09/12/17 16:45 67 15 09/12/17 16:45 65 15 100 09/12/17 16:41 170/87 09/12/17 16:40 68 15 98 09/12/17 16:40 68 15 09/12/17 16:37 168/86 09/12/17 16:35 36.2 70 16 168/86 100 Oxymask 5 Physical Exam General Appearance: no apparent distress Eyes: PERRL ENT: hearing grossly normal Neck: supple Respiratory/Chest: lungs clear Cardiovascular: regular rate, rhythm, no murmur Abdomen: normal bowel sounds, non tender, soft Neurologic/Psych: alert, normal mood/affect, oriented x 3 Skin: normal color Laboratory Results Last 24 Hours Test 09/12/17 16:48 09/13/17 08:29 Bedside Glucose 96 mg/dl White Blood Count 11.69 K/uL Red Blood Count 3.76 M/uL Hemoglobin 11.2 g/dL Hematocrit 33.9 % Mean Corpuscular Volume 90.2 fL Mean Corpuscular Hemoglobin 29.8 pg Mean Corpuscular Hemoglobin Concent 33.0 g/dl Platelet Count 235 K/uL Mean Platelet Volume 9.8 fL Neutrophils (%) (Auto) 90.3 % Lymphocytes (%) (Auto) 4.7 % Monocytes (%) (Auto) 4.5 % Eosinophils (%) (Auto) 0.0 % Basophils (%) (Auto) 0.2 % Neutrophils # (Auto) 10.55 K/uL Lymphocytes # (Auto) 0.55 K/uL Monocytes # (Auto) 0.53 K/uL Eosinophils # (Auto) 0.00 K/uL Basophils # (Auto) 0.02 K/uL RDW Standard Deviation 45.2 fL RDW Coefficient of Variation 13.7 % Immature Granulocyte % (Auto) 0.3 % Immature Granulocyte # (Auto) 0.04 K/uL Assessment and Plan Patient is a 71 year old female with history of gallstones, s/p cholecystectomy in 2004 with choledocholithiasis in 2010 requiring ERCP who presented to the ED today for evaluation of abrupt onset RUQ pain, fever, chills, rigors, nausea and vomiting - "I feel exactly the same as when I had a stone stuck before". VSS , pt is febrile, transaminitis with TB 1.7 and DB 1.4. Lipase WNL. Kidney function good. choledocholithiasis vs viral induced injury vs other. Will proceed with serology and MRCP. MRCP suggestive of choledocholithiasis and stricture. TB 2.5, DB 2 with transaminitis, now S/P ERCP with stent placement x 2, evidence of biliary stenosis and choledocholithiasis. - ok to advance diet, low fat - IVF 100 mh/hr until discharge - follow up serology that was ordered - daily LFTs - outpatient dosing of Questran as needed - Continue broad spectrum ABX for cholangitis coverage x 2 weeks - please discharge on cipro/flagyl to complete 2 weeks - ERCP for stent removal in 4 weeks - PO PPI 40 mg daily x 1 month No GI contraindication to discharge if pt tolerated dietary advancement, please send home with a 2 week course of cipro/flagyl, suggest repeat CMP and PCP follow up within a week for LFT trending. ERCP for stent removal in 4 weeks. I performed a history and physical examination of the patient, I have discussed the patient's management with Edwina. Please refer to the PA's note for the documented findings and plan of care. s/p ERCP with sphincterotomy and CBD stones extraction, s/p double pigtail stenting x2. She feels better today, no pain, tolerating diet. Complete the course of ABx as PO and follow up for ERCP in 4 weeks.
[2017-09-13 09:18] LABS: ALB/GLOB RATIO 0.9 (0.9-2)
--- NOTE | 2017-09-13 09:18 | Anesthesiology Progress Note ---
Anesthesia Post Op Note Date & Time Sep 13, 2017 at 09:17 Vital Signs Pain Intensity: 0.0 Vital Signs Past 12 Hours Date Time Temp Pulse Resp B/P (MAP) Pulse Ox O2 Delivery O2 Flow Rate FiO2 09/13/17 08:00 95 Room Air 09/13/17 07:43 36.5 71 20 157/78 (104) 95 Room Air 09/13/17 00:00 Room Air 09/12/17 23:43 36.8 64 16 158/75 (102) 95 09/12/17 21:36 36.8 73 18 163/71 (101) 99 Room Air Notes Mental Status: alert / awake / arousable, participated in evaluation Pt Amnestic to Procedure: Yes Nausea / Vomiting: adequately controlled Pain: adequately controlled Airway Patency, RR, SpO2: stable & adequate BP & HR: stable & adequate Hydration State: stable & adequate Anesthetic Complications: no major complications apparent
[2017-09-13] MEDS ORDERED: METR500T PO (10:43)
[2017-09-13] MEDS ORDERED: CIPR-255 PO (10:43)
--- NOTE | 2017-09-13 10:51 | Discharge Instructions ---
Discharge Instructions Date of Service Sep 13, 2017. Admission Reason for Admission: Cholangitis Discharge Discharge Diagnosis / Problem: Cholangitis Discharge Goals Goal(s): Decrease discomfort, Improve function, Increase independence, Improve disease control Activity Recommendations Activity Limitations: resume your previous activity Lifting Limitations: no more than 25 pounds, gradually increase as tolerated Exercise/Sports Limitations: rest today, gradually increase as tolerated May Resume Sexual Activity: when tolerated Shower/Bathe: no limitations Driving or Machine Use: no limitations . Instructions / Follow-Up Instructions / Follow-Up You were admitted to [facility] with abdominal pain, fever and diagnosed with cholangitis. During your stay here you were treated with intravenous antibiotics, supportive care and were evaluated by Gastroenterology. An ERCP was completed and was consistent with a stone as seen on the cholangiogram. The stone was found and removed. A sphincterotomy was performed. Two biliary stents were placed into the common bile duct. - You will need to have a repeat ERCP in 4 weeks to have the stent removed. You will be contacted by GI to schedule this procedure. Medications - Continue to take cipro 500 mg twice daily and Flagyl 500 mg three times daily x 2 more weeks. Continue taking your medications as above. Appointments: Follow up with your Primary Care Provider within 1 week. Follow up with GI within 4 weeks. You will be contacted to schedule an appointment for follow up and repeat ERCP. Current Hospital Diet Patient's current hospital diet: Low Fat Diet Discharge Diet Recommended Diet: Low Fat Diet Procedures Procedures Performed: Endoscopic Retrograde Cholangiopancreatogram Pending Studies Studies pending at discharge: no Medical Emergencies . Who to Call and When: Medical Emergencies: If at any time you feel your situation is an emergency, please call 911 immediately. . Non-Emergent Contact Non-Emergency issues call your: Primary Care Provider, Packing Inspector Call Non-Emergent contact if: you have a fever, temperature is above 100.5, your pain is not controlled, your pain is worsening, your pain is unusual for you, your pain is concerning you, you have any medication questions other concerns with your health. Call 911 or go directly to the Emergency Department if you experience any of the following: Chest pain, chest tightness, shortness of breath, abdominal pain , lightheadedness, dizziness, gastrointestinal bleeding, or have any other concerns regarding your health. . . "Provider Documentation" section prepared by Pooja Murray. . VTE Core Measure Inpt VTE Proph given/why not?: Wilber Mcneil, YUSUF's
[2017-09-13] MEDS ORDERED: PANTOprazole SOD 40 MG TAB PO ONE (11:00)
[2017-09-13 12:56] VITALS: BP 157/78; PULSE 71; TEMP 36.5; O2SAT 95
--- NOTE | 2017-09-13 15:18 | Discharge Summary ---
Discharge Summary Date of Service Sep 13, 2017. Discharge Summary Admission Date: Sep 11, 2017 at 16:17 Discharge Date: Sep 13, 2017 Discharge Disposition: Home Principal Diagnosis: Sepsis due to Choledocholithiasis / Pneumobilia / Acute hepatitis Problems/Secondary Diagnoses: Sepsis due to choledocholithiasis/ pneumobilia/ acute hepatitis RA Chronic kidney disease, stg III Hypertension Asthma Immunizations: Have You Had Influenza Vaccine: Yes Influenza Vaccine Date: Sep 19, 2012 History of Tetanus Vaccine?: Yes Tetanus Immunization Date: Sep 19, 2010 History of Pneumococcal: Unknown Pneumococcal Date: Aug 15, 2010 History of Hepatitis B Vaccine: Unknown Procedures: CT ABD/PELVIS IV CONTRAST ONLY 09/11/17 IMPRESSION: 1. Surgically absent gallbladder and uterus 2. Pneumobilia, likely secondary to a prior sphincterotomy 3. No evidence of bowel obstruction. No evidence of free air 4. Diverticulosis. No evidence of acute diverticulitis 5. No evidence of acute appendicitis MRCP 09/11/17 IMPRESSION: 1. Technically difficult study to interpret given motion artifact and pneumobilia which makes evaluation for choledocholithiasis difficult. T2 hypointense foci within the common bile duct could reflect choledocholithiasis or pneumobilia. 2. Apparent moderate narrowing of the distal common bile duct. This may be artifactual although a stricture could appear similar. These findings could be correlated with ERCP as clinically indicated. ERCP 09/12/17 Impression: - The major papilla was located entirely within a diverticulum. - Prior biliary endoscopic sphincterotomy appeared stenosed or narrowed. - The patient has had a cholecystectomy. - The entire main bile duct was moderately dilated. - A filling defect consistent with a stone and sludge was seen on the cholangiogram. - A sphincterotomy was extended. - The lower third of the main bile duct was successfully dilated to 8 mm - Choledocholithiasis was found. Complete removal was accomplished by biliary sphincterotomy - Two biliary stents were placed into the common bile duct. CHEST ONE VIEW PORTABLE 09/12/17 IMPRESSION: No active disease in the chest. Consultations: Gastroenterology Medication Reconciliation New Medications: Ciprofloxacin Hcl (Cipro) 500 Mg Tab 1 TAB PO BID for 14 Days, #28 TAB Metronidazole (Flagyl) 500 Mg Tab 500 MG PO TID for 14 Days, #42 TAB Continued Medications: Albuterol Hfa (Ventolin Hfa) 200 Puffs/98971 Mcg Aers 2 PUFFS INH Q4 PRN for SOB/Wheezing, #1 INHALER Ascorbic Acid (Vitamin C) 500 Mg Tab 500 MG PO HS Atenolol (Tenormin) 25 Mg Tab 25 MG PO QAM, 0 Refills Calcium Carbonate-Vitamin D W/ (Caltrate 600 Plus) 1 Tab Tab 1 TAB PO BID, TAB Cholecalciferol (Vitamin D) 5,000 Unit Tab 5000 UNITS PO DAILY Cholestyramine (Questran) 4 Gm Pow 1 PKT PO BID PRN for Diarrhea Cyanocobalamin (Vitamin B-12) 1,000 Mcg Tab 1000 MCG PO BID, TAB Diclofenac Sodium (Topical) (Voltaren 1% Top Gel) 1 % Gel 1 APPLN TOP QID Ferrous Sulfate (Iron) 325 Mg Tab 1 TAB PO DAILY Fluticasone Prop/Salmeterol (Advair Diskus 500/50 60 Dose) 1 Ea Aerp 1 PUFF INH BID, INHALER Furosemide (Lasix) 20 Mg Tab 20 MG PO QAM, TAB Glimepiride (Glimepiride) 1 Mg Tab 1 MG PO DAILY Hydroxychloroquine Sulfate (Hydroxychloroquine Sulfat) 200 Mg Tab 1.5 TAB PO DAILY Leflunomide (Arava) 20 Mg Tab 1 TAB PO NOON for 30 Days, TAB Levalbuterol (Levalbuterol HCl) 0.63 Mg/3 Ml Nebu 1 UNIT NEB Q4H PRN for SOB/Wheezing Levothyroxine Sodium (Levothyroxine Sodium) 100 Mcg Tab 100 MG PO DAILY Methylprednisolone (Methylprednisolone) 4 Mg Tab 8 MG PO DAILY Spironolactone (Spironolactone) 25 Mg Tab 25 MG PO DAILY Tiotropium [place] (Spiriva Handihaler) 30 Puff/540 Mcg Aerp 1 CAP INH DAILY, INHALER Tramadol (Ultram) 50 Mg Tab 1 TAB PO TID PRN for prn for 30 Days, #90 TAB Discharge Exam The patient was seen and examined this morning. Pt reports feeling very well today, she tolerated clears and wants to eat something more solid for lunch. Her abdominal pain is minimal, rated a 1/10. She denies n/c/v/d. She had a BM this morning. Pt denies fever, chills, sweats, chest pain, palpitations, flutter. ROS: 6 point ROS reviewed and otherwise negative. Physical Exam: General Appearance: WD/WN, no apparent distress Eyes: PERRL, EOMI ENT: hearing grossly normal, pharynx normal Neck: supple, no JVD Respiratory/Chest: lungs clear, normal breath sounds, no respiratory distress, no accessory muscle use Cardiovascular: regular rate, rhythm, no edema, no murmur Abdomen / GI: normal bowel sounds, non tender, soft Extremities: no calf tenderness, no pedal edema, + pertinent finding ( Lesion over R ant morales healing, no signs of surrounding infection, no edema, ) Neurologic/Psychiatric: alert, normal reflexes, oriented x 3 Skin: normal color, warm/dry Hospital Course HISTORY OF PRESENT ILLNESS: The patient is a very pleasant 71-year-old female accompanied by her . She had an onset of nausea and vomiting this morning as well as fever. She had some upper abdominal pain as well. She notes that it felt like whenever she had gallstones before. She ate breakfast, she vomited and then started feeling lousy, she started having shakes that her described really describing rigors and then she checked her temperature and found that to be fairly elevated and came to the ER for further evaluation. At worst, the pain was a 9/10, now it is down to maybe about a 4/10, that is predominantly in her right upper abdomen. Her nausea and vomiting have resolved. PHYSICAL EXAMINATION: VITAL SIGNS: Temp 39, pulse 95, respiratory rate 18, blood pressure 143/74, 91-94% on room air. GENERAL: She is awake, alert, oriented x3, fatigued appearing, but otherwise in no acute distress. HEENT: Normocephalic, atraumatic. Mucous membranes are moist. CARDIOVASCULAR: Regular, maybe slightly tachycardic. No rubs, murmurs, or gallops. LUNGS: Clear to auscultation bilaterally. No rales, rhonchi, or wheezes with good effort. ABDOMEN: Soft, nondistended. She does have a right upper quadrant tenderness, but there is no guarding, no rebound, no Hart sign, no rigidity whatsoever and the remainder of her abdomen is benign. EXTREMITIES: Without cyanosis, clubbing or edema. No calf tenderness. SKIN: Shows no rashes, no pallor or icterus. NEUROLOGIC: Shows cranial nerves II-XII to be grossly intact. Gross motor and sensory are intact. MUSCULOSKELETAL: Yields no gross lesions. MENTAL STATUS: Shows good recent and remote recall. Normal mood and affect. Good judgment and insight. Hospital Course: 71 yo F with PMHx of gallstones, s/p cholecystectomy in 2004, with choledocholithiasis in 2010 s/p ERCP. Presented with acute onset n/v, pain, fever and chills. MRCP suggestive of choledocholithiasis and stricture. Sepsis due to Choledocholithiasis / Pneumobilia / Acute hepatitis - Pt received intravenous antibiotics with cefepime and flagyl, supportive care and was evaluated by Gastroenterology. - An ERCP was completed on 09/12/17 and was consistent with a stone as seen on the cholangiogram. The stone was found and removed. A sphincterotomy was performed. Two biliary stents were placed into the common bile duct. - Will need repeat ERCP in 4 weeks to have the stent removed. You will be contacted by GI to schedule this procedure. - Transitioned to PO antibiotics of cipro 500 mg twice daily and Flagyl 500 mg three times daily x 2 more weeks. - LFTs continued to improve. - Pain well controlled prior after ERCP. pain rate a 1/10 today during my visit. Pt tolerated normal low fat diet without difficulty for lunch. - Follow hepatitis panels- in process RA - Holding immunosuppressants (leflunamide) while inpatient but can resume on discharge - Continue plaquenil - holding her home medications of stress-dosing steroids for now. Chronic kidney disease, stg III - Continue maintenance fluids, Cr. appears to be at baseline. Hypertension - Hold home medications- resume spironolactone and atenolol at time of dc. Resume lasix 20 mg PO daily upon discharge Asthma - Continue albuterol p.r.n. DVT ppx: heparin subq, teds, scds CODE STATUS: FULL CODE Disposition: From home, lives with , discharge to home today. Total Time Spent: Greater than 30 minutes This includes examination of the patient, discharge planning, medication reconciliation, and communication with other providers. Discharge Instructions Please refer to the electronic Patient Visit Report (Discharge Instructions) for additional information. Follow-Up Follow up with your Primary Care Provider within 1 week. Follow up with GI within 2-4 weeks, schedule repeat ERCP within 4 weeks for stent removal. Additional Copies To Chad Wilder M.D.
[2017-09-13] MEDS ORDERED: CEFEPIME IV 2,000 MG in SYRINGE 7.5 ML IV SCH (18:00)
[2017-09-13 23:30] LABS: CMV DNA PCR QUAL NOT DETECTED; HSV TYPE 1 DNA Not Detected (Not Detected); HSV TYPE 1&2 DNA SOURCE Serum; HSV TYPE 2 DNA Not Detected (Not Detected)
[2017-09-14] MEDS ORDERED: PANTOprazole SOD 40 MG TAB PO SCH (09:00)
== END 2017-09-13 14:59 | disposition home or self-care (01) | DRG 872 ==
LOC: C.EDB 12:25 → C.MED 16:17 → ENRESERV 16:38
PROVIDERS: ADMIT Family Medicine; ATTEND Internal Medicine
DX: A41.9 Sepsis, unspecified organism (principal); B17.9 Acute viral hepatitis, unspecified; K83.0 Cholangitis; K80.50 Calculus of bile duct without cholangitis or cholecystitis without obstruction; J45.909 Unspecified asthma, uncomplicated; I12.9 Hypertensive chronic kidney disease with stage 1 through stage 4 chronic kidney disease, or unspecified chronic kidney disease; R74.0 Nonspecific elevation of levels of transaminase and lactic acid dehydrogenase [LDH]; N18.3 Chronic kidney disease, stage 3 (moderate); Z90.49 Acquired absence of other specified parts of digestive tract

== ENCOUNTER → 2017-10-20 | Day surgery (SDC) | payer BC ==
[2017-10-10 08:03] VITALS: BMI 22.0
[~2017-10-20] VITALS: Ht 157.5 cm; Wt 54.5 kg
[~2017-10-20] MED LIST changes: +ADVIN50/60 INH; +ATROPINE SULFATE 0.1 MG/ML 5ML SYR IV PRN; +BIOT1CAP3 PO; +CALCTAB7 PO; +CHOL1TAB42 PO; +CHOL4POW11 PO; +CYAN10005 PO; +DEXAMETHASONE SOD INJ 4 MG/ML VIAL ONE; +DICL1GEL12 TOP; +EpHEDrine SULFATE INJ 50 MG/ML AMP IV PRN; +FENTANYL CITRATE INJ 50 MCG/1 ML 2 ML VIAL IV PRN; +FENTANYL CITRATE INJ 50 MCG/1 ML 2 ML VIAL ONE; +FERR1TAB23 PO; +GENT60IN4; +INDOMETHACIN 50 MG SUPP PR ONE; +LACTATED RINGER'S 1000ML 1,000 ML IV SCH; +LEFL20TA PO; +LEVO100T7 PO; +LIDOCAINE HCL 2% 2 ML VIAL (20MG/ML) ONE; +MDR4 PO; +MIDAZOLAM HCL 1 MG/ML 2ML VIAL ONE; +ONDANSETRON INJ 2 MG/ML 2 ML VIAL IV PRN; +ONDANSETRON INJ 2 MG/ML 2 ML VIAL ONE; +PLQ200 PO; +PROPOFOL IV EMULSION 10 MG/ML 20 ML VIAL IV ONE; +SPR25 PO; +SPRIN/30 INH; +VNTHFA/IN INH; +XPNINS NEB; +ZNTT/150 PO
[2017-10-20 06:34] VITALS: BP 156/76; PULSE 68; TEMP 36.8; O2SAT 100; Ht 157.5 cm; Wt 54.5 kg
--- NOTE | 2017-10-20 08:12 | Endo History and Physical ---
History & Physical Date of Service: Oct 20, 2017. Chief Complaint: Stent removal Referring Physician: History of Present Illness History of cholangitis for biliary stent removal today. Past Medical History Arthritis, Asthma, Reflux, Hypertension, Thyroid Disease, Chronic Steroid Use, Kidney Disease Past Surgical History Hx Cardiac Surgery: No Hx Internal Defibrillator: No Hx Pacemaker: No Hx Abdominal Surgery: Yes (LAP ROSEMARY; YANIQUE WITH BSO; C-SECTIONS) Hx Post-Op Nausea and Vomiting: No Hx Cancer Surgery: No Hx Thoracic Surgery: No Hx Orthopedic: No Hx Urinary Tract Surgery: No Social History Smoking Status: Never Smoker Hx Substance Use: No Hx Alcohol Use: No Allergies Coded Allergies: Gabapentin (Unverified Allergy, Mild, DELIRIUM, 10/20/17) Amoxicillin (Verified Allergy, Unknown, SEVERE RHEUMATOID ARTHRITIC SYMPTOMS, 10/20/17) Clavulanic Acid (Verified Allergy, Unknown, SEVERE RHEUMATOID ARTHRITIC SYMPTOMS, 10/20/17) Gold-containing Drug Products (Verified Allergy, Unknown, RIDAURA ( AURANOFIN), 10/20/17) Sulfa Antibiotics (Verified Adverse Reaction, Unknown, "give me anxiety", 10/20/17) Current Medications Reported Home Medications Medications Dose Route/Sig Max Daily Dose Days Date Category Zantac (Ranitidine HCl) 150 Mg Tab 150 Mg PO QAM 10/10/17 Reported Biotin 5,000 Mcg Cap 5,000 Mcg PO NOON 10/10/17 Reported Gentamicin Sulfate/0.9% S (Gentamicin In Saline) 1 Inj Inj 2 Sprays NA TID PRN 10/10/17 Reported Voltaren 1% Top Gel (Diclofenac Sodium (Topical)) 1 % Gel 1 Appln TOP QID PRN 08/13/17 Reported Vitamin D (Cholecalciferol) 5,000 Unit Tab 5,000 Units PO QAM 08/13/17 Reported Spironolactone 25 Mg Tab 25 Mg PO QAM 08/13/17 Reported Methylprednisolone 4 Mg Tab 4 Mg PO QAM 08/13/17 Reported Levothyroxine Sodium 100 Mcg Tab 100 Mg PO QAM 08/13/17 Reported Levalbuterol HCl (Levalbuterol) 0.63 Mg/3 Ml Nebu 1 Unit NEB Q4H PRN 08/13/17 Reported Hydroxychloroquine Sulfat (Hydroxychloroquine Sulfate) 200 Mg Tab 300 Mg PO QAM 08/13/17 Reported Iron (Ferrous Sulfate) 325 Mg Tab 1 Tab PO QPM 08/13/17 Reported Questran (Cholestyramine) 4 Gm Pow 1 Pkt PO BID PRN 08/13/17 Reported Caltrate 600 Plus (Calcium Carbonate-Vitamin D W/) 1 Tab Tab 1 Tab PO BID 08/13/17 Reported Ventolin Hfa (Albuterol) 200 Puffs/57599 Mcg Aers 2 Puffs INH Q4 PRN 08/13/17 Reported Spiriva Handihaler (Tiotropium [place]) 30 Puff/540 Mcg Aerp 1 Cap INH QAM 08/13/17 Reported Advair Diskus 500/50 60 Dose (Fluticasone Prop/Salmeterol) 1 Ea Aerp 1 Puff INH BID 08/13/17 Reported Ultram (Tramadol HCl) 50 Mg Tab 1 Tab PO TID PRN 04/05/17 Reported Vitamin B-12 (Cyanocobalamin) 1,000 Mcg Tab 1,000 Mcg PO QAM 11/29/16 Reported Arava (Leflunomide) 20 Mg Tab 20 Mg PO NOON 11/03/16 Reported Lasix (Furosemide) 20 Mg Tab 20 Mg PO QAM 11/26/14 Reported Vitamin C (Ascorbic Acid) 500 Mg Tab 500 Mg PO HS 07/15/14 Reported Tenormin (Atenolol) 25 Mg Tab 25 Mg PO QAM 01/13/11 Reported Vital Signs Weight (Kilograms): 54.55 Height (Feet): 5 Height (Inches): 2 Date Time Temp Pulse Resp B/P (MAP) Pulse Ox O2 Delivery O2 Flow Rate FiO2 10/20/17 06:34 36.8 68 20 156/76 (102) 100 Room Air Physical Exam General Appearance: no apparent distress Respiratory/Chest: Auscultation: breath sounds normal Cardiovascular: Heart Auscultation: RRR Abdomen: Inspection & Palpation: soft Assessment and Plan Patient for ERCP for biliary stent removal and clearance of her bile duct. We discussed the risks include bleeding, infection, perforation and pancreatitis.
--- NOTE | 2017-10-20 09:04 | [facility] Post Operative Brief Note ---
Immediate Operative Summary Operative Date Oct 20, 2017. Pre-Operative Diagnosis History of cholangitis for biliary stent removal today Post-Operative Diagnosis History of cholangitis for biliary stent removal today Procedure(s) Performed Endoscopic Retrograde Cholangiopancreatogram Surgeon Dr. Cy Doll Engraver Automatic Surgeon(s) none Estimated Blood Loss mpme Findings Dilated common bile duct Several soft green pigmented stones Specimens specimens maintained by Endoscopy staff Anesthesia General Complication(s) None Disposition Recovery Room / PACU
--- NOTE | 2017-10-20 09:04 | GI REPORT ---
Procedure Date: 10/20/2017 8:18 AM Procedure: ERCP Indications: Follow-up of ascending cholangitis, Stent removal Medicines: General Anesthesia, Indocin 100 mg MT Complications: No immediate complications. Estimated blood loss: Minimal. Estimated Blood Loss: Estimated blood loss was minimal. Procedure: Pre-Anesthesia Assessment: - Prior to the procedure, a History and Physical was performed, and patient medications, allergies and sensitivities were reviewed. The patient's tolerance of previous anesthesia was reviewed. - The risks and benefits of the procedure and the sedation options and risks were discussed with the patient. All questions were answered and informed consent was obtained. - Patient identification and proposed procedure were verified prior to the procedure by the physician, the nurse and the group cio. The procedure was verified in the procedure room. - Pre-procedure physical examination revealed no contraindications to sedation. - ASA Grade Assessment: III - A patient with severe systemic disease. - After reviewing the risks and benefits, the patient was deemed in satisfactory condition to undergo the procedure. - The anesthesia plan was to use general anesthesia. - Immediately prior to administration of medications, the patient was re-assessed for adequacy to receive sedatives. - The heart rate, respiratory rate, oxygen saturations, blood pressure, adequacy of pulmonary ventilation, and response to care were monitored throughout the procedure. - The physical status of the patient was re-assessed after the procedure. After obtaining informed consent, the scope was passed under direct vision. Throughout the procedure, the patient's blood pressure, pulse, and oxygen saturations were monitored continuously. The scope was introduced through the mouth, and advanced to the duodenum and used to inject contrast into the bile duct. The ERCP was accomplished without difficulty. The patient tolerated the procedure well. Findings: A advertising director film of the abdomen was obtained. Surgical clips, consistent with previous cholecystectomy, were seen in the area of the right upper quadrant of the abdomen. Two stents ending in the main bile duct were seen. The esophagus was successfully intubated under direct vision without detailed examination of the pharynx, larynx, and associated structures, and upper GI tract. The upper GI tract was grossly normal. Two biliary stents originating in the biliary tree were emerging from the major papilla. The stents were visibly patent. Two stents were removed from the biliary tree using a snare. A biliary sphincterotomy had been performed. The sphincterotomy appeared open. The bile duct was deeply cannulated with the short-nosed traction sphincterotome (Omni 35) and 0.035 in Acrobat guidewire. Contrast was injected. I personally interpreted the bile duct images. Contrast extended to the hepatic ducts. A cholecystectomy had been performed. The main bile duct was diffusely dilated. The largest diameter was 10-12 mm. The lower third of the main bile duct contained stone(s), the largest of which was 8-9 mm in diameter. To discover objects, the biliary tree was swept with a 15 mm balloon starting at the bifurcation several timex. Sludge was swept from the duct. Three soft green pigmented stones were removed. No stones remained on occlusion cholangiogram. The endoscope was withdrawn from the patient. Impression: - Two visibly patent stents from the biliary tree were seen in the major papilla. - Two stents were removed from the biliary tree. - Prior biliary endoscopic sphincterotomy appeared open. - The patient has had a cholecystectomy. - The entire main bile duct was dilated. - The biliary tree was swept. - Choledocholithiasis was found. Complete removal was accomplished by balloon extraction. Recommendation: - Discharge patient to home (ambulatory). - Clear liquid diet today. - Observe patient's clinical course following today's ERCP with therapeutic intervention. Griffin Doll D.O. Griffin Doll, 10/20/2017 9:03:59 AM This report has been signed electronically. Note Initiated On: 10/20/2017 8:18 AM I attest to the content of the Intraoperative Record and orders documented therein, exceptions below
--- NOTE | 2017-10-20 09:06 | Discharge Instructions ---
Endoscopy Patient Instructions Date / Procedure(s) Performed Oct 20, 2017. ERCP Allergy Information Coded Allergies: Gabapentin (Unverified Allergy, Mild, DELIRIUM, 10/20/17) Amoxicillin (Verified Allergy, Unknown, SEVERE RHEUMATOID ARTHRITIC SYMPTOMS, 10/20/17) Clavulanic Acid (Verified Allergy, Unknown, SEVERE RHEUMATOID ARTHRITIC SYMPTOMS, 10/20/17) Gold-containing Drug Products (Verified Allergy, Unknown, RIDAURA ( AURANOFIN), 10/20/17) Sulfa Antibiotics (Verified Adverse Reaction, Unknown, "give me anxiety", 10/20/17) Discharge Date / Findings Oct 20, 2017. dilated common bile duct several common duct stones Medication Instructions Reported Home Medications Medications Dose Route/Sig Max Daily Dose Days Date Category Zantac (Ranitidine HCl) 150 Mg Tab 150 Mg PO QAM 10/10/17 Reported Biotin 5,000 Mcg Cap 5,000 Mcg PO NOON 10/10/17 Reported Gentamicin Sulfate/0.9% S (Gentamicin In Saline) 1 Inj Inj 2 Sprays NA TID PRN 10/10/17 Reported Voltaren 1% Top Gel (Diclofenac Sodium (Topical)) 1 % Gel 1 Appln TOP QID PRN 08/13/17 Reported Vitamin D (Cholecalciferol) 5,000 Unit Tab 5,000 Units PO QAM 08/13/17 Reported Spironolactone 25 Mg Tab 25 Mg PO QAM 08/13/17 Reported Methylprednisolone 4 Mg Tab 4 Mg PO QAM 08/13/17 Reported Levothyroxine Sodium 100 Mcg Tab 100 Mg PO QAM 08/13/17 Reported Levalbuterol HCl (Levalbuterol) 0.63 Mg/3 Ml Nebu 1 Unit NEB Q4H PRN 08/13/17 Reported Hydroxychloroquine Sulfat (Hydroxychloroquine Sulfate) 200 Mg Tab 300 Mg PO QAM 08/13/17 Reported Iron (Ferrous Sulfate) 325 Mg Tab 1 Tab PO QPM 08/13/17 Reported Questran (Cholestyramine) 4 Gm Pow 1 Pkt PO BID PRN 08/13/17 Reported Caltrate 600 Plus (Calcium Carbonate-Vitamin D W/) 1 Tab Tab 1 Tab PO BID 08/13/17 Reported Ventolin Hfa (Albuterol) 200 Puffs/28145 Mcg Aers 2 Puffs INH Q4 PRN 08/13/17 Reported Spiriva Handihaler (Tiotropium [place]) 30 Puff/540 Mcg Aerp 1 Cap INH QAM 08/13/17 Reported Advair Diskus 500/50 60 Dose (Fluticasone Prop/Salmeterol) 1 Ea Aerp 1 Puff INH BID 08/13/17 Reported Ultram (Tramadol HCl) 50 Mg Tab 1 Tab PO TID PRN 04/05/17 Reported Vitamin B-12 (Cyanocobalamin) 1,000 Mcg Tab 1,000 Mcg PO QAM 11/29/16 Reported Arava (Leflunomide) 20 Mg Tab 20 Mg PO NOON 11/03/16 Reported Lasix (Furosemide) 20 Mg Tab 20 Mg PO QAM 11/26/14 Reported Vitamin C (Ascorbic Acid) 500 Mg Tab 500 Mg PO HS 07/15/14 Reported Tenormin (Atenolol) 25 Mg Tab 25 Mg PO QAM 01/13/11 Reported Provider Instructions Activity Restrictions - No exercising or heavy lifting for 24 hours. - Do not drink alcohol the day of the procedure. - Do not drive a car or operate machinery until the day after the procedure. - Do not make any important decisions or sign important papers in 24 hours after the procedure. Following Day: - Return to full activity which may include returning to work/school. Diet Clear liquid diet today Regular diet on 10/21/17 Treatment For Common After Affects For mild abdominal pain, bloating, or excessive gas: - Rest - Eat lightly - Lie on right side Follow-Up Information Liquid diet today Regular diet on 10/21/17 Follow-up with Dr. Doll as needed. Anesthesia Information What You Should Know You have had a procedure that required some medicine to reduce anxiety and discomfort. This treatment is called moderate sedation. After receiving the treatment, you may be sleepy, but you will be able to breathe on your own. The effects of the treatment may last for several hours. Follow these instructions along with Activity/Diet recommendations noted above: * Do NOT do anything where dizziness or clumsiness would be dangerous. * Rest quietly at home today, then you can be up and about tomorrow. * Have a responsible person stay with you the rest of today. * You may have had an I.V. today. If so, you may take the dressing off later today. Recommendations Call your doctor if: * Trouble breathing * Continuous vomiting for more than 24 hours * Temperature above 101 degrees * Severe abdominal pain or bloating * Pain not relieved by pain medicine ordered * There is increased drainage or redness from any incision * A large amount of rectal bleeding greater than 2-3 tablespoons. (If you had a polyp/s removed or have hemorrhoids, a small amount of blood - from the rectum is to be expected.) * You have any unanswered questions or concerns. IN THE EVENT OF A SERIOUS EMERGENCY, GO TO THE NEAREST EMERGENCY ROOM Your discharge instructions were prepared by provider Griffin Doll. Patient Instructions Signature Page Angelika Herrera Patient (or Guardian) Signature/Date: I have read and understand the instructions given to me by my caregivers. Caregiver/RN/Doctor Signature/Date: The above-named patient and/or guardian has received patient instructions on this date. + Original Patient Signature Page (only) stays with chart. Please make copy for patient.
--- NOTE | 2017-10-20 09:22 | DIAGNOSTIC IMAGING REPORT ---
INTRAOPERATIVE RADIOGRAPHS CLINICAL HISTORY: ERCP and stent removal. COMPARISON STUDY: MRCP dated 09/11/2017. Fluoroscopy time: 2 minutes 29 seconds. FINDINGS: 6 spot fluoroscopic views of the right upper quadrant are presented. Cholecystectomy clips are noted on the initial image and a common duct stent is in place. The stent is removed. Filling defects are questioned within the common bile duct on the initial post stent removal image. The common bile duct appears dilated and a balloon sweep of the duct is performed. The filling defects likely resolve. Pneumobilia is noted. IMPRESSION: Intraoperative images from an ERCP procedure and common bile duct stent removal as above. See operative report for detailed findings. Electronically signed by: Palmer Herring M.D. 10/20/2017 9:21 AM Dictated Date/Time: 10/20/2017 9:12 AM
--- NOTE | 2017-10-20 09:32 | Anesthesiology Progress Note ---
Anesthesia Post Op Note Date & Time Oct 20, 2017 at 09:32 Vital Signs Pain Intensity: 0 Vital Signs Past 12 Hours Date Time Temp Pulse Resp B/P (MAP) Pulse Ox O2 Delivery O2 Flow Rate FiO2 10/20/17 09:25 36.5 69 16 140/73 (89) 100 Room Air 10/20/17 09:17 67 15 10/20/17 09:17 68 15 100 10/20/17 09:15 138/77 10/20/17 09:12 67 17 10/20/17 09:12 68 17 100 10/20/17 09:10 143/72 10/20/17 09:07 70 10 10/20/17 09:07 36.4 70 16 143/71 100 Oxymask 10 10/20/17 09:07 70 10 143/71 100 10/20/17 06:34 36.8 68 20 156/76 (102) 100 Room Air Notes Mental Status: alert / awake / arousable, participated in evaluation Pt Amnestic to Procedure: Yes Nausea / Vomiting: adequately controlled Pain: adequately controlled Airway Patency, RR, SpO2: stable & adequate BP & HR: stable & adequate Hydration State: stable & adequate Anesthetic Complications: no major complications apparent
[2017-10-20 09:58] VITALS: BP 168/74; PULSE 66; TEMP 36.2; O2SAT 99
[2017-10-20 10:30] VITALS: BP 186/82; PULSE 72; TEMP 36.2; O2SAT 95
== END | disposition home or self-care (01) ==
LOC: C.ACU 05:57
PROVIDERS: ATTEND Internal Medicine Gastroenterology
DX: K80.50 Calculus of bile duct without cholangitis or cholecystitis without obstruction (principal); K83.8 Other specified diseases of biliary tract; I10 Essential (primary) hypertension; E03.9 Hypothyroidism, unspecified; K21.9 Gastro-esophageal reflux disease without esophagitis; J45.909 Unspecified asthma, uncomplicated; N18.9 Chronic kidney disease, unspecified; M19.90 Unspecified osteoarthritis, unspecified site; Z79.899 Other long term (current) drug therapy; E78.5 Hyperlipidemia, unspecified; M06.9 Rheumatoid arthritis, unspecified; E11.9 Type 2 diabetes mellitus without complications

== ENCOUNTER → 2017-10-23 | Outpatient (CLI) | payer BC ==
[~2017-10-23] MED LIST changes: -ATROPINE SULFATE 0.1 MG/ML 5ML SYR IV PRN; -DEXAMETHASONE SOD INJ 4 MG/ML VIAL ONE; -EpHEDrine SULFATE INJ 50 MG/ML AMP IV PRN; -FENTANYL CITRATE INJ 50 MCG/1 ML 2 ML VIAL IV PRN; -FENTANYL CITRATE INJ 50 MCG/1 ML 2 ML VIAL ONE; -INDOMETHACIN 50 MG SUPP PR ONE; -LACTATED RINGER'S 1000ML 1,000 ML IV SCH; -LIDOCAINE HCL 2% 2 ML VIAL (20MG/ML) ONE; -MIDAZOLAM HCL 1 MG/ML 2ML VIAL ONE; -ONDANSETRON INJ 2 MG/ML 2 ML VIAL IV PRN; -ONDANSETRON INJ 2 MG/ML 2 ML VIAL ONE; -PROPOFOL IV EMULSION 10 MG/ML 20 ML VIAL IV ONE
[2017-10-23 12:49] LABS: THYROID STIMULATING HORMONE 3.19 uIu/ml (0.300-4.500)
== END | disposition home or self-care (01) ==
LOC: C.LAB1850 10:18
PROVIDERS: ATTEND Family Medicine
DX: R74.8 Abnormal levels of other serum enzymes (principal); E03.9 Hypothyroidism, unspecified

== ENCOUNTER 2018-01-01 09:09 | Inpatient (IN) | payer BC, OTHER ==
[2018-01-01] VITALS (9 sets, daily range): BP systolic 121–138; BP diastolic 64–82; PULSE 72–86; TEMP 36.5–37; O2SAT 94–98; Ht 157.5 cm; Wt 49.8 kg
[~2018-01-01] VITALS: Ht 157.5 cm; Wt 49.8 kg
[~2018-01-01 09:09] MED LIST changes: -ADVIN50/60 INH; -CALCTAB7 PO; -CHOL1TAB42 PO; -CHOL4POW11 PO; -CYAN10005 PO; -DICL1GEL12 TOP; -FERR1TAB23 PO; -LEFL20TA PO; -LEVO100T7 PO; -MDR4 PO; -PLQ200 PO; +RANI150T85 PO; -SPR25 PO; -SPRIN/30 INH; -TRAM-10 PO; -VNTHFA/IN INH; -XPNINS NEB; -ZNTT/150 PO
[2018-01-01] MEDS ORDERED: SODIUM CHLORIDE 0.9% 1000ML 1,000 ML IV STA (09:33)
[2018-01-01] MEDS ORDERED: ONDANSETRON INJ 2 MG/ML 2 ML VIAL IV STA (09:33)
[2018-01-01] MEDS ORDERED: MoRPHine SULFATE 4 MG/ML 1 ML CARP\\VIAL IV STA (09:33)
[2018-01-01] MEDS ORDERED: TRAM-10 PO (10:08)
[2018-01-01 10:10] LABS: BASO % 0.2 %; BASO ABS # 0.03 K/uL (0-0.2); EOS % 0.5 %; EOS ABS # 0.07 K/uL (0-0.5); HEMATOCRIT 36.4 % (37-47); HEMOGLOBIN 12.5 g/dL (12.0-16.0); IG# 0.04 K/uL (0.00-0.02); LYMPH % 9.9 %; LYMPH ABS # 1.37 K/uL (1.2-3.4); MEAN CORPUSCULAR HEMOGLOBIN 31.3 pg (25-34); MEAN CORPUSCULAR HGB CONC 34.3 g/dl (32-36); MEAN PLATELET VOLUME 9.1 fL (7.4-10.4); MONO % 9.5 %; MONO ABS # 1.32 K/uL (0.11-0.59); NEUT % 79.6 %; NEUT ABS # 11.03 K/uL (1.4-6.5); PLATELET COUNT 360 K/uL (130-400); RED CELL DISTRIBUTION WIDTH CV 12.9 % (11.5-14.5); RED CELL DISTRIBUTION WIDTH SD 42.9 fL (36.4-46.3); WHITE BLOOD COUNT 13.86 K/uL (4.8-10.8)
[2018-01-01 10:26] LABS: ALBUMIN 3.7 gm/dl (3.4-5.0); CALCIUM 9.9 mg/dl (8.5-10.1); CREATININE 1.39 mg/dl (0.60-1.20); POTASSIUM 3.5 mmol/L (3.5-5.1)
[2018-01-01 10:29] LABS: TOTAL PROTEIN 7.6 gm/dl (6.4-8.2)
--- NOTE | 2018-01-01 11:55 | DIAGNOSTIC IMAGING REPORT ---
ABDOMINAL ULTRASOUND, RIGHT UPPER QUADRANT HISTORY: Right upper quadrant abdominal pain previous jinny 2000 and then infected stone 2017 . COMPARISON: CT of the abdomen and pelvis and MRCP September 11, 2017. FINDINGS: No hepatic lesions are identified. There is mild dilatation of the common bile duct which is unchanged since prior CT of September 11, 2017. Common bile duct measures 8 mm in caliber. Pneumobilia is noted. Note is also made of a 6 mm echogenic nonshadowing focus within the mid to distal common bile duct. The pancreas is unremarkable although partially obscured. There is no right hydronephrosis. The gallbladder is surgically absent. IMPRESSION: No change in mild biliary ductal dilatation status post cholecystectomy. Pneumobilia. 6 mm echogenic nonshadowing focus within the mid to distal common bile duct could reflect a common bile duct calculus or pneumobilia. Electronically signed by: Jonathan Carreon M.D. 01/01/2018 11:54 AM Dictated Date/Time: 01/01/2018 11:49 AM
--- NOTE | 2018-01-01 12:45 | Gastrointestinal Consultation ---
Gastrointestinal Consultation Date of Consultation: Jan 01, 2018 Attending Physician: Dr. Ramirez, ED Consulting Physician: Dr. Zamora Reason for Consultation: Choledocholithiasis History of Present Illness Patient is a 72 year old female patient of Dr. Wilder with [facility]. The pt carries a hx of HTN, Rh Arthritis, steroid induced DM-2, Asthma. She also carries a hx of choledocholithiasis, S/P cholecystectomy (2004), having undergone ERCP initially in 2010 in [place], then again in Aug 2017, by Dr. Doll with placement of two biliary stents which were then removed on Oct 2017. Last night at 11PM she began with sudden nausea and vomiting, followed by diarrhea. These symptoms persisted all night long,as well as mild diffuse upper abdomen discomfort, radiating down the entire abdomen. She also had sweats/ chills. She has not had any jaundice. On arrival, US with a 6mm distal CBD stone. LFTs and lipase are normal. There is mild leukocytosis at 13. Cr is above her baseline: now at 1.39, suggestive of dehydration. She is seen and examined in the ED where she is hemodynamically stable and has not eaten or drank since last night. Past Medical/Surgical History Medical Problems: (1) Hepatitis Status: Acute (2) Transaminitis Status: Acute Past Medical History: 1. Steroid induced DM 2. Asthma 3. Choledocholithiasis 4. Rheumatoid arthritis Past Surgical History: 1. ERCP Aug and October ERCPs, see HPI. 2. Cholecystectomy 2004 3. YANIQUE BSO 1988 4.Cataract surgery to both eyes. Social History Smoking Status: Never Smoker Alcohol Use: occasionally Drug Use: none Marital Status: Housing Status: lives with family Occupation Status: retired Allergies Coded Allergies: Gabapentin (Unverified Allergy, Mild, DELIRIUM, 01/01/18) Amoxicillin (Verified Allergy, Unknown, SEVERE RHEUMATOID ARTHRITIC SYMPTOMS, 01/01/18) Clavulanic Acid (Verified Allergy, Unknown, SEVERE RHEUMATOID ARTHRITIC SYMPTOMS, 01/01/18) Gold-containing Drug Products (Verified Allergy, Unknown, RIDAURA ( AURANOFIN), 01/01/18) Sulfa Antibiotics (Verified Adverse Reaction, Unknown, "give me anxiety", 01/01/18) Current Medications Home Meds and Scripts Medications Dose Route/Sig Max Daily Dose Days Date Category Zantac (Ranitidine HCl) 150 Mg Tab 150 Mg PO QAM 10/10/17 Reported Biotin 5,000 Mcg Cap 5,000 Mcg PO NOON 10/10/17 Reported Gentamicin Sulfate/0.9% S (Gentamicin In Saline) 1 Inj Inj 2 Sprays NA TID PRN 10/10/17 Reported Voltaren 1% Top Gel (Diclofenac Sodium (Topical)) 1 % Gel 1 Appln TOP QID PRN 08/13/17 Reported Vitamin D (Cholecalciferol) 5,000 Unit Tab 5,000 Units PO QAM 08/13/17 Reported Spironolactone 25 Mg Tab 25 Mg PO QAM 08/13/17 Reported Methylprednisolone 4 Mg Tab 4 Mg PO QAM 08/13/17 Reported Levothyroxine Sodium 100 Mcg Tab 100 Mg PO QAM 08/13/17 Reported Levalbuterol HCl (Levalbuterol) 0.63 Mg/3 Ml Nebu 1 Unit NEB Q4H PRN 08/13/17 Reported Hydroxychloroquine Sulfat (Hydroxychloroquine Sulfate) 200 Mg Tab 300 Mg PO QAM 08/13/17 Reported Iron (Ferrous Sulfate) 325 Mg Tab 1 Tab PO QPM 08/13/17 Reported Questran (Cholestyramine) 4 Gm Pow 1 Pkt PO BID PRN 08/13/17 Reported Caltrate 600 Plus (Calcium Carbonate-Vitamin D W/) 1 Tab Tab 1 Tab PO BID 08/13/17 Reported Ventolin Hfa (Albuterol) 200 Puffs/97871 Mcg Aers 2 Puffs INH Q4 PRN 08/13/17 Reported Spiriva Handihaler (Tiotropium [place]) 30 Puff/540 Mcg Aerp 1 Cap INH QAM 08/13/17 Reported Advair Diskus 500/50 60 Dose (Fluticasone Prop/Salmeterol) 1 Ea Aerp 1 Puff INH BID 08/13/17 Reported Ultram (Tramadol HCl) 50 Mg Tab 1 Tab PO TID PRN 04/05/17 Reported Vitamin B-12 (Cyanocobalamin) 1,000 Mcg Tab 1,000 Mcg PO QAM 11/29/16 Reported Arava (Leflunomide) 20 Mg Tab 20 Mg PO NOON 11/03/16 Reported Lasix (Furosemide) 20 Mg Tab 20 Mg PO QAM 11/26/14 Reported Vitamin C (Ascorbic Acid) 500 Mg Tab 500 Mg PO HS 07/15/14 Reported Tenormin (Atenolol) 25 Mg Tab 25 Mg PO QAM 01/13/11 Reported Review of Systems Constitutional: + chills, + sweats, No fever, No weight loss, No weakness Eyes: No eye pain, No redness ENT: No sore throat, No trouble swallowing, No pain on swallowing Respiratory: + shortness of breath (because did not take her asthma inhalers this morning), No cough, No wheezing, No dyspnea on exertion Cardiac: No chest pain, No edema, No palpitations Abdomen: + see HPI, + pain, + nausea, + vomiting, + diarrhea Neuro: No memory loss, No weakness, No numbness/tingling, No vertigo, No balance problems Psych: No depression symptoms, No anxiety, No insomnia Heme: No abnormal bleeding/bruising, No night sweats Endo: No excessive thirst, No excessive urination Skin: No rash, No itch, No new/changing skin lesions, No jaundice Physical Exam Date Time Temp Pulse Resp B/P (MAP) Pulse Ox O2 Delivery O2 Flow Rate FiO2 01/01/18 12:21 74 18 114/59 99 Room Air 01/01/18 10:37 37.4 69 18 104/55 100 Room Air 01/01/18 09:21 37.1 90 20 123/79 98 Room Air General Appearance: no apparent distress Eyes: normal inspection, EOMI Neck: supple, no adenopathy, thyroid normal Respiratory/Chest: chest non-tender, lungs clear, normal breath sounds, no accessory muscle use Cardiovascular: regular rate, rhythm, no JVD, no murmur Abdomen: normal bowel sounds, non tender, no organomegaly, + tenderness ( across the entire upper abdomen) Extremities: normal inspection, no pedal edema, normal capillary refill Neurologic/Psych: alert, normal mood/affect, oriented x 3 Skin: normal color, no jaundice, warm/dry, no rash Laboratory Results Last 24 Hours Test 01/01/18 09:33 01/01/18 09:55 White Blood Count 13.86 K/uL Red Blood Count 4.00 M/uL Hemoglobin 12.5 g/dL Hematocrit 36.4 % Mean Corpuscular Volume 91.0 fL Mean Corpuscular Hemoglobin 31.3 pg Mean Corpuscular Hemoglobin Concent 34.3 g/dl Platelet Count 360 K/uL Mean Platelet Volume 9.1 fL Neutrophils (%) (Auto) 79.6 % Lymphocytes (%) (Auto) 9.9 % Monocytes (%) (Auto) 9.5 % Eosinophils (%) (Auto) 0.5 % Basophils (%) (Auto) 0.2 % Neutrophils # (Auto) 11.03 K/uL Lymphocytes # (Auto) 1.37 K/uL Monocytes # (Auto) 1.32 K/uL Eosinophils # (Auto) 0.07 K/uL Basophils # (Auto) 0.03 K/uL RDW Standard Deviation 42.9 fL RDW Coefficient of Variation 12.9 % Immature Granulocyte % (Auto) 0.3 % Immature Granulocyte # (Auto) 0.04 K/uL Sodium Level 135 mmol/L Potassium Level 3.5 mmol/L Chloride Level 97 mmol/L Carbon Dioxide Level 26 mmol/L Anion Gap 12.0 mmol/L Blood Urea Nitrogen 22 mg/dl Creatinine 1.39 mg/dl Est Creatinine Clear Calc Drug Dose 29.2 ml/min Estimated GFR () 44.1 Estimated GFR (Non- 38.0 BUN/Creatinine Ratio 15.9 Random Glucose 110 mg/dl Calcium Level 9.9 mg/dl Total Bilirubin 0.6 mg/dl Direct Bilirubin 0.2 mg/dl Aspartate Amino Transf (AST/SGOT) 26 U/L Alanine Aminotransferase (ALT/SGPT) 46 U/L Alkaline Phosphatase 201 U/L Total Protein 7.6 gm/dl Albumin 3.7 gm/dl Lipase 160 U/L Impression Patient is a 72 year old female with choledocholithiasis, mild dehydration. Plan 1. Recommend admission, IV fluids. 2. Due to chills, mild leukocytosis at 13, would cover for cholangitis: Cipro, flagyl (allx to amoxicillin so would avoid Zosyn). 3. Will attempt to arrange ERCP.
[2018-01-01] MEDS ORDERED: CEFEPIME IV 1,000 MG in DEXTROSE 5% 100ML 100 ML IV ONE (13:00)
[2018-01-01] MEDS ORDERED: CIPROFLOXACIN / D5W 400 MG IV STA (13:03)
[2018-01-01] MEDS ORDERED: METRONIDAZOLE / NSS 500 MG IV STA (13:06)
--- NOTE | 2018-01-01 13:12 | History and Physical ---
History & Physical Date & Time of Service: Jan 01, 2018 at 13:07 Chief Complaint: Vomiting Primary Care Physician: Chad Wilder M.D. History of Present Illness Source: patient This is a 72 yo F with PMHx of gallstones, s/p cholecystectomy in 2004, with choledocholithiasis in 2010 s/p ERCP. In Aug 2017 she presented with similar abdominal pain and nausea and vomiting, then underwent MRCP which found choledocholithiasis and stricture. She also had acute hepatitis at that time which resolved with PO antibiotics and fluids. This time she presents with acute onset of nausea and vomiting last night around 11 PM. She reports repetitive retching overnight, associated with abdominal pain in the epigastric region around the left and into her back. She also had multiple episodes of diarrhea throughout the night. She denies any blood with vomiting, or bowel movements. She reports feeling like she had a low-grade fever last night with sweats and chills although she did not take her temperature. She denies any other acute symptoms. Here in the ER and a gallbladder ultrasound was conducted showing 6 mm echogenic nonshadowing finding indicative of possible gallstone or pneumobilia. Her alk phos is elevated at 201. Other LFTs are normal currently; Total bili = 0.6, direct bili= 0.2, AST=26, ALT= 46. She has a slight bump in creatinine equal to 1.39 with a baseline of 1.1-1.2 Past Medical/Surgical History Medical Problems: Asthma hypertension Steroid induced DM bronchitis Cholecystectomy Choledocholithiasis rheumatoid arthritis Osteoarthritis hypothyroidism Surgical history: Status post cholecystectomy 2004 Status post ERCP with stent placement and removal in August 2017/October 2017 Social History Smoking Status: Never Smoker Smokeless Tobacco Use: No Alcohol Use: none Drug Use: none Marital Status: Housing status: lives with family Occupational Status: retired Immunizations History of Influenza Vaccine: Yes Influenza Vaccine Date: Sep 19, 2012 History of Tetanus Vaccine?: Yes Tetanus Immunization Date: Sep 19, 2010 History of Pneumococcal: Unknown Pneumococcal Date: Aug 15, 2010 History of Hepatitis B Vaccine: Unknown Multi-Drug Resistant Organisms History of MDRO: No Allergies Coded Allergies: Gabapentin (Unverified Allergy, Mild, DELIRIUM, 01/01/18) Amoxicillin (Verified Allergy, Unknown, SEVERE RHEUMATOID ARTHRITIC SYMPTOMS, 01/01/18) Clavulanic Acid (Verified Allergy, Unknown, SEVERE RHEUMATOID ARTHRITIC SYMPTOMS, 01/01/18) Gold-containing Drug Products (Verified Allergy, Unknown, RIDAURA ( AURANOFIN), 01/01/18) Sulfa Antibiotics (Verified Adverse Reaction, Unknown, "give me anxiety", 01/01/18) Home Medications Scheduled Ascorbic Acid (Vitamin C), 500 MG PO HS Atenolol (Tenormin), 25 MG PO QAM Biotin (Biotin), 5,000 MCG PO NOON Calcium Carbonate-Vitamin D W/ (Caltrate 600 Plus), 1 TAB PO BID Cholecalciferol (Vitamin D), 5,000 UNITS PO QAM Cyanocobalamin (Vitamin B-12), 1,000 MCG PO QAM Ferrous Sulfate (Iron), 1 TAB PO QPM Fluticasone Prop/Salmeterol (Advair Diskus 500/50 60 Dose), 1 PUFF INH BID Furosemide (Lasix), 20 MG PO QAM Hydroxychloroquine Sulfate (Hydroxychloroquine Sulfat), 300 MG PO QAM Leflunomide (Arava), 20 MG PO NOON Levothyroxine Sodium (Levothyroxine Sodium), 100 MCG PO QAM Methylprednisolone (Methylprednisolone), 4 MG PO QAM Ranitidine (Zantac), 150 MG PO QAM Spironolactone (Spironolactone), 25 MG PO QAM Tiotropium [place] (Spiriva Handihaler), 1 CAP INH QAM Scheduled PRN Albuterol Hfa (Ventolin Hfa), 2 PUFFS INH Q4 PRN for SOB/Wheezing Cholestyramine (Questran), 1 PKT PO BID PRN for Diarrhea Diclofenac Sodium (Topical) (Voltaren 1% Top Gel), 1 APPLN TOP QID PRN for Pain Gentamicin In Saline (Gentamicin Sulfate/0.9% S), 2 SPRAYS NA TID PRN for SINUS Levalbuterol (Levalbuterol HCl), 1 UNIT NEB Q4H PRN for SOB/Wheezing Tramadol (Ultram), 1 TAB PO TID PRN for prn Review of Systems Constitutional: + sweats and chills Eyes: No diplopia, no worsening or blurred vision ENT: normal hearing, no trouble swallowing Respiratory: No cough, sputum, dyspnea at rest or on exertion Cardiovascular: No chest pain, tightness or palpitations Abdomen: See HPI Musculoskeletal: No joint pain, calf pain, swelling Neurologic: No weakness, numbness/tingling, or balance problems Psychiatric: No anxiety or depression Skin: No rash or itch Physical Exam Vital Signs Date Time Temp Pulse Resp B/P (MAP) Pulse Ox O2 Delivery O2 Flow Rate FiO2 01/01/18 12:21 74 18 114/59 99 Room Air 01/01/18 10:37 37.4 69 18 104/55 100 Room Air 01/01/18 09:21 37.1 90 20 123/79 98 Room Air General: awake, alert, no apparent distress Head: Normocephalic, atraumatic ENT: PERRL, EOMI, no pharyngeal exudate, mucous membranes moist Chest: Clear to auscultation, on room air, no adventitious breath sounds Cardiac: Regular rate and rhythm, faint systolic murmur, no JVD, normal peripheral pulses, good capillary refill Abdominal: NABS x 4 quadrants, soft, tender to palpation in the epigastric region in the right upper quadrant, no rebound, guarding or tenderness Extremities: Normal inspection, no peripheral edema or erythema, calfs nontender to palpation Psych: Normal mood and affect Neuro: AAO x 3, strength intact bilaterally and related 5/5, no motor deficits, speech is clear, no peripheral sensory deficits Diagnostics Laboratory Results Results Past 24 Hours Test 01/01/18 09:55 01/01/18 12:00 Range/Units White Blood Count 13.86 4.8-10.8 K/uL Red Blood Count 4.00 4.2-5.4 M/uL Hemoglobin 12.5 12.0-16.0 g/dL Hematocrit 36.4 37-47 % Mean Corpuscular Volume 91.0 80-100 fL Mean Corpuscular Hemoglobin 31.3 25-34 pg Mean Corpuscular Hemoglobin Concent 34.3 32-36 g/dl Platelet Count 360 130-400 K/uL Mean Platelet Volume 9.1 7.4-10.4 fL Neutrophils (%) (Auto) 79.6 % Lymphocytes (%) (Auto) 9.9 % Monocytes (%) (Auto) 9.5 % Eosinophils (%) (Auto) 0.5 % Basophils (%) (Auto) 0.2 % Neutrophils # (Auto) 11.03 1.4-6.5 K/uL Lymphocytes # (Auto) 1.37 1.2-3.4 K/uL Monocytes # (Auto) 1.32 0.11-0.59 K/uL Eosinophils # (Auto) 0.07 0-0.5 K/uL Basophils # (Auto) 0.03 0-0.2 K/uL RDW Standard Deviation 42.9 36.4-46.3 fL RDW Coefficient of Variation 12.9 11.5-14.5 % Immature Granulocyte % (Auto) 0.3 % Immature Granulocyte # (Auto) 0.04 0.00-0.02 K/uL Sodium Level 135 136-145 mmol/L Potassium Level 3.5 3.5-5.1 mmol/L Chloride Level 97 98-107 mmol/L Carbon Dioxide Level 26 21-32 mmol/L Anion Gap 12.0 3-11 mmol/L Blood Urea Nitrogen 22 7-18 mg/dl Creatinine 1.39 0.60-1.20 mg/dl Est Creatinine Clear Calc Drug Dose 29.2 ml/min Estimated GFR () 44.1 Estimated GFR (Non- 38.0 BUN/Creatinine Ratio 15.9 10-20 Random Glucose 110 70-99 mg/dl Calcium Level 9.9 8.5-10.1 mg/dl Total Bilirubin 0.6 0.2-1 mg/dl Direct Bilirubin 0.2 0-0.2 mg/dl Aspartate Amino Transf (AST/SGOT) 26 15-37 U/L Alanine Aminotransferase (ALT/SGPT) 46 12-78 U/L Alkaline Phosphatase 201 45-117 U/L Total Protein 7.6 6.4-8.2 gm/dl Albumin 3.7 3.4-5.0 gm/dl Lipase 160 73-393 U/L Diagnostic Radiology ABDOMINAL ULTRASOUND, RIGHT UPPER QUADRANT HISTORY: Right upper quadrant abdominal pain previous jinny 1999 and then infected stone 2016 . COMPARISON: CT of the abdomen and pelvis and MRCP September 11, 2017. FINDINGS: No hepatic lesions are identified. There is mild dilatation of the common bile duct which is unchanged since prior CT of September 11, 2017. Common bile duct measures 8 mm in caliber. Pneumobilia is noted. Note is also made of a 6 mm echogenic nonshadowing focus within the mid to distal common bile duct. The pancreas is unremarkable although partially obscured. There is no right hydronephrosis. The gallbladder is surgically absent. IMPRESSION: No change in mild biliary ductal dilatation status post cholecystectomy. Pneumobilia. 6 mm echogenic nonshadowing focus within the mid to distal common bile duct could reflect a common bile duct calculus or pneumobilia. Electronically signed by: Jonathan Carreon M.D. 01/01/2018 11:54 AM Dictated Date/Time: 01/01/2018 11:49 AM The status of this report is Signed. Impression Assessment and Plan This is a 72 yo F with PMHx of gallstones, s/p cholecystectomy in 2004, with choledocholithiasis in 2010 s/p ERCP. In Aug 2017 she presented with similar abdominal pain and nausea and vomiting, then underwent MRCP which found choledocholithiasis and stricture. She also had acute hepatitis at that time which resolved with PO antibiotics and fluids. This time she presents with acute onset of nausea and vomiting last night around 11 PM. Elevated Alk phos, nausea, vomiting - Gallbladder ultrasound showing 6 mm echogenic nonshadowing foci which possibly represents choledocholithiasis or possible pneumobilia - GI consulted: Discussed with Dr. Lavon Silva planning on doing an ERCP this afternoon after 3 PM - Keep n.p.o. - IV fluids normal saline at 80 ml/hr for maintenance - continue IV Cipro and Flagyl, received doses in the ER - Antiemetics with Zofran patient reports that nausea is well controlled after 1 dose in the ER RA - Holding immunosuppressants (leflunamide) while inpatient but can resume on discharge - Continue plaquenil - holding her home medications of stress-dosing steroids for now. Steroid Induced DM II - monitor accuchecks, pt is not on medication for this. Can consider adding ISS for carb coverage if accuchecks abnormal. - A1C with am labs Chronic kidney disease, stg III - Cr at 1.39 - Holding Lasix, IVFs as above, baseline 1.1-1.2 Hypertension - Lasix, spironolactone and atenolol held at this time. -VSS Asthma - Continue albuterol p.r.n. Chronic low back pain - Continue tramadol as needed DVT ppx: teds, scds, ambulatory CODE STATUS: FULL CODE Disposition: Patient from home, possible discharge tomorrow after ERCP Level of Care Med/Surg Resuscitation Status FULL RESUSCITATION VTE Prophylaxis Risk Level: Low Given or contraindicated: Wilber Mcneil, SCD's Reviewed: Pt Seen/Exam by Me History Pt is s/p ERCP. She states she has no change in her abd discomfort other than she is now a bit bloated post-procedure. She states there is not and has not been sujata pain. She had a tray of clears which she tolerated without issue. She did not eat the beef broth, but this was due to preference and not sx. Stable otherwise. Agree with HPI/ROS as noted by PA. General Appearance: WD/WN, no apparent distress Eye Exam: bilateral eye EOMI, bilateral eye other (normal sclera) Respiratory: normal breath sounds, no respiratory distress Cardiovascular: normal peripheral pulses, regular rate, rhythm Gastrointestinal: non tender, soft, distended (minimimally) Extremities: non-tender, no pedal edema Neurologic/Psychiatric: alert, normal mood/affect, oriented x 3 Skin Characteristics: normal color, warm/dry Assessment/Plan Agree with plan as outlined above RUQ US noted for mild dilation ERCP neg for stones but noted for sludge, dilation preformed also GI plans for cipro x5 days with ursodiol BID Monitor Other medical issues stable
[2018-01-01] MEDS ORDERED: ACETAMINOPHEN 325 MG TAB PO PRN (13:45)
[2018-01-01] MEDS ORDERED: METRONIDAZOLE / NSS 500 MG in PREMIXED NSS 100 ML IV SCH (13:45)
[2018-01-01] MEDS ORDERED: ONDANSETRON INJ 2 MG/ML 2 ML VIAL IV PRN ×2 (13:45→15:45)
[2018-01-01] MEDS ORDERED: TRAMADOL HCL 50 MG TAB PO PRN (13:45)
[2018-01-01] MEDS ORDERED: ALBUTEROL HFA 8 GM INHALER INH PRN (13:45)
--- NOTE | 2018-01-01 14:38 | EMERGENCY ROOM VISIT NOTE ---
History Report prepared by Shanelle: Shravan Montoya Under the Supervision of: Dr. Los Ramirez D.O. First contact with patient: 09:23 Chief Complaint: VOMITING Stated Complaint: VOMITING History of Present Illness The patient is a 72 year old female who presents to the Emergency Room with complaints of multiple episodes of vomiting that began about 11 hours ago. She has a past medical history of a cholecystectomy (2004) and a previous ERCP a couple months ago. She denies any known history of pancreatitis. She states that her current symptoms are congruent with her symptoms associated with her problem requiring the ERCP. Since last night, she has been nauseated with episodes of vomiting and diarrhea. She is having generalized abdominal discomfort as well. She still has her appendix. She denies any known sick contacts. Pt denies headache, change in vision, fevers, cough, sore throat, chest pain, shortness of breath, pain with urination, and melena. Source of History: patient Onset: 11 hours ago Position: other (GI) Symptom Intensity: Multiple episodes Quality: other (Vomiting) Timing: intermittent Associated Symptoms: + nausea, + abdominal pain (diffuse discomfort), + diarrhea, No fevers, No headache, No chest pain, No SOB, No melena, No urinary symptoms Review of Systems See HPI for pertinent positives & negatives. A total of 10 systems reviewed and were otherwise negative. Past Medical & Surgical Medical Problems: (1) Asthma (2) Benign hypertension (3) Bronchitis (4) Cholangitis (5) Cholecystectomy (6) Choledocholithiasis (7) History of - section (8) Intractable nausea and vomiting Family History Omitted secondary to the patient's age. Social History Smoking Status: Never Smoker Alcohol Use: occasionally Drug Use: none Marital Status: Housing Status: lives with family Occupation Status: retired Current/Historical Medications Scheduled Ascorbic Acid (Vitamin C), 500 MG PO HS Atenolol (Tenormin), 25 MG PO QAM Biotin (Biotin), 5,000 MCG PO NOON Calcium Carbonate-Vitamin D W/ (Caltrate 600 Plus), 1 TAB PO BID Cholecalciferol (Vitamin D), 5,000 UNITS PO QAM Cyanocobalamin (Vitamin B-12), 1,000 MCG PO QAM Ferrous Sulfate (Iron), 1 TAB PO QPM Fluticasone Prop/Salmeterol (Advair Diskus 500/50 60 Dose), 1 PUFF INH BID Furosemide (Lasix), 20 MG PO QAM Hydroxychloroquine Sulfate (Hydroxychloroquine Sulfat), 300 MG PO QAM Leflunomide (Arava), 20 MG PO NOON Levothyroxine Sodium (Levothyroxine Sodium), 100 MG PO QAM Methylprednisolone (Methylprednisolone), 4 MG PO QAM Ranitidine (Zantac), 150 MG PO QAM Spironolactone (Spironolactone), 25 MG PO QAM Tiotropium [place] (Spiriva Handihaler), 1 CAP INH QAM Scheduled PRN Albuterol Hfa (Ventolin Hfa), 2 PUFFS INH Q4 PRN for SOB/Wheezing Cholestyramine (Questran), 1 PKT PO BID PRN for Diarrhea Diclofenac Sodium (Topical) (Voltaren 1% Top Gel), 1 APPLN TOP QID PRN for Pain Gentamicin In Saline (Gentamicin Sulfate/0.9% S), 2 SPRAYS NA TID PRN for SINUS Levalbuterol (Levalbuterol HCl), 1 UNIT NEB Q4H PRN for SOB/Wheezing Tramadol (Ultram), 1 TAB PO TID PRN for prn Allergies Coded Allergies: Gabapentin (Unverified Allergy, Mild, DELIRIUM, 01/01/18) Amoxicillin (Verified Allergy, Unknown, SEVERE RHEUMATOID ARTHRITIC SYMPTOMS, 01/01/18) Clavulanic Acid (Verified Allergy, Unknown, SEVERE RHEUMATOID ARTHRITIC SYMPTOMS, 01/01/18) Gold-containing Drug Products (Verified Allergy, Unknown, RIDAURA ( AURANOFIN), 01/01/18) Sulfa Antibiotics (Verified Adverse Reaction, Unknown, "give me anxiety", 01/01/18) Physical Exam Vital Signs Date Time Temp Pulse Resp B/P (MAP) Pulse Ox O2 Delivery O2 Flow Rate FiO2 01/01/18 13:42 78 18 112/48 94 Room Air 01/01/18 13:40 94 Room Air 01/01/18 12:21 74 18 114/59 99 Room Air 01/01/18 10:37 37.4 69 18 104/55 100 Room Air 01/01/18 09:21 37.1 90 20 123/79 98 Room Air Physical Exam GENERAL: Sitting up in bed, alert, well appearing, well nourished, no distress, non-toxic EYE EXAM: normal conjunctiva. PERRL and EOMI's grossly intact. OROPHARYNX: no exudate, no erythema, lips, buccal mucosa, and tongue normal and mucous membranes are moist NECK: supple, no nuchal rigidity, no adenopathy, non-tender LUNGS: Clear to auscultation. Normal chest wall mechanics HEART: no murmurs, S1 normal and S2 normal ABDOMEN: abdomen soft, minimal tenderness in the epigastrium/RUQ, normo-active bowel sounds, no masses, no rebound or guarding. BACK: Back is symmetrical on inspection and there is no deformity, no midline tenderness, no CVA tenderness. SKIN: no rashes and no bruising UPPER EXTREMITIES: upper extremities are grossly normal. LOWER EXTREMITIES: No pitting edema. NEURO EXAM: Normal sensorium, cranial nerves II-XII grossly intact, normal speech, no gross weakness of arms, no gross weakness of legs. Medical Decision & Procedures ER Provider Diagnostic Interpretation: Radiology results as stated below per my review and the radiologist's interpretation: ABDOMINAL ULTRASOUND, RIGHT UPPER QUADRANT HISTORY: Right upper quadrant abdominal pain previous jinny 1999 and then infected stone 2016 . COMPARISON: CT of the abdomen and pelvis and MRCP September 11, 2017. FINDINGS: No hepatic lesions are identified. There is mild dilatation of the common bile duct which is unchanged since prior CT of September 11, 2017. Common bile duct measures 8 mm in caliber. Pneumobilia is noted. Note is also made of a 6 mm echogenic nonshadowing focus within the mid to distal common bile duct. The pancreas is unremarkable although partially obscured. There is no right hydronephrosis. The gallbladder is surgically absent. IMPRESSION: No change in mild biliary ductal dilatation status post cholecystectomy. Pneumobilia. 6 mm echogenic nonshadowing focus within the mid to distal common bile duct could reflect a common bile duct calculus or pneumobilia. Electronically signed by: Jonathan Carreon M.D. 01/01/2018 11:54 AM Dictated Date/Time: 01/01/2018 11:49 AM Laboratory Results 01/01/18 09:55 Red Blood Count 4.00, Mean Corpuscular Volume 91.0, Mean Corpuscular Hemoglobin 31.3, Mean Corpuscular Hemoglobin Concent 34.3, Mean Platelet Volume 9.1, Neutrophils (%) (Auto) 79.6, Lymphocytes (%) (Auto) 9.9, Monocytes (%) (Auto) 9.5, Eosinophils (%) (Auto) 0.5, Basophils (%) (Auto) 0.2, Neutrophils # (Auto) 11.03, Lymphocytes # (Auto) 1.37, Monocytes # (Auto) 1.32, Eosinophils # (Auto) 0.07, Basophils # (Auto) 0.03 01/01/18 09:55 Test 01/01/18 09:55 01/01/18 12:00 White Blood Count 13.86 K/uL (4.8-10.8) Red Blood Count 4.00 M/uL (4.2-5.4) Hemoglobin 12.5 g/dL (12.0-16.0) Hematocrit 36.4 % (37-47) Mean Corpuscular Volume 91.0 fL (80-100) Mean Corpuscular Hemoglobin 31.3 pg (25-34) Mean Corpuscular Hemoglobin Concent 34.3 g/dl (32-36) Platelet Count 360 K/uL (130-400) Mean Platelet Volume 9.1 fL (7.4-10.4) Neutrophils (%) (Auto) 79.6 % Lymphocytes (%) (Auto) 9.9 % Monocytes (%) (Auto) 9.5 % Eosinophils (%) (Auto) 0.5 % Basophils (%) (Auto) 0.2 % Neutrophils # (Auto) 11.03 K/uL (1.4-6.5) Lymphocytes # (Auto) 1.37 K/uL (1.2-3.4) Monocytes # (Auto) 1.32 K/uL (0.11-0.59) Eosinophils # (Auto) 0.07 K/uL (0-0.5) Basophils # (Auto) 0.03 K/uL (0-0.2) RDW Standard Deviation 42.9 fL (36.4-46.3) RDW Coefficient of Variation 12.9 % (11.5-14.5) Immature Granulocyte % (Auto) 0.3 % Immature Granulocyte # (Auto) 0.04 K/uL (0.00-0.02) Anion Gap 12.0 mmol/L (3-11) Est Creatinine Clear Calc Drug Dose 29.2 ml/min Estimated GFR () 44.1 Estimated GFR (Non- 38.0 BUN/Creatinine Ratio 15.9 (10-20) Calcium Level 9.9 mg/dl (8.5-10.1) Total Bilirubin 0.6 mg/dl (0.2-1) Direct Bilirubin 0.2 mg/dl (0-0.2) Aspartate Amino Transf (AST/SGOT) 26 U/L (15-37) Alanine Aminotransferase (ALT/SGPT) 46 U/L (12-78) Alkaline Phosphatase 201 U/L (45-117) Total Protein 7.6 gm/dl (6.4-8.2) Albumin 3.7 gm/dl (3.4-5.0) Lipase 160 U/L (73-393) Urine Color YELLOW Urine Appearance CLEAR (CLEAR) Urine pH 5.5 (4.5-7.5) Urine Specific [place] 1.015 (1.000-1.030) Urine Protein NEG (NEG) Urine Glucose (UA) NEG (NEG) Urine Ketones NEG (NEG) Urine Occult Blood NEG (NEG) Urine Nitrite NEG (NEG) Urine Bilirubin NEG (NEG) Urine Urobilinogen NEG (NEG) Urine Leukocyte Esterase NEG (NEG) Urine WBC (Auto) 1-5 /hpf (0-5) Urine RBC (Auto) 0-4 /hpf (0-4) Urine Hyaline Casts (Auto) 1-5 /lpf (0-5) Urine Epithelial Cells (Auto) 5-10 /lpf (0-5) Urine Bacteria (Auto) NEG (NEG) Laboratory results per my review. Medications Administered Medications (Trade) Dose Ordered Sig/Kailash Route Start Time Stop Time Status Last Admin Dose Admin Sodium Chloride 1,000 ml @ 999 mls/hr Q1H1M STAT IV 01/01/18 09:33 01/01/18 10:33 DC 01/01/18 09:33 999 MLS/HR Ondansetron HCl (Zofran Inj) 4 mg NOW STAT IV 01/01/18 09:33 01/01/18 09:37 DC 01/01/18 09:57 4 MG Morphine Sulfate (MoRPHine SULFATE INJ) 4 mg NOW STAT IV 01/01/18 09:33 01/01/18 09:37 DC 01/01/18 09:58 4 MG Ciprofloxacin/ Dextrose 200 ml @ 100 mls/hr NOW STAT IV 01/01/18 13:03 01/01/18 15:02 01/01/18 13:33 100 MLS/HR Metronidazole 100 ml @ 100 mls/hr NOW STAT IV 01/01/18 13:06 01/01/18 14:05 DC 01/01/18 13:33 100 MLS/HR ED Course ED COURSE: Vital signs were reviewed and showed normal vitals The patients medical record was reviewed The above diagnostic studies were performed and reviewed. ED treatments and interventions as stated above. 0923: The patient was evaluated in room B4B. A complete history and physical examination was performed. 0933: Ordered Morphine Sulfate 4 mg IV, Zofran Inj 4 mg IV, Sodium Chloride 1000 ml @ 999 mls/hr IV 1005: I updated the patient at this time. She does not want anything for pain. 1155: The patient states that she is beginning to feel better. 1212: I discussed the patient's case with Jesus COWART of [facility]. She will come to the ER to evaluate the patient. 1256: Upon reevaluation, the patient is resting.I discussed my findings with the patient and she understands and agrees with the treatment plan. Based on the patients age, coexisting illnesses, exam and lab findings the decision to treat as an inpatient was made. The patient remained stable while under my care. The patient will be evaluated by Dr. Méndez of [facility] for further management. 1303: Ordered Ciprofloxacin/Dextrose 200 ml @ 100 mls/hr IV 1306: Ordered Metronidazole 100 ml @ 100 mls/hr IV Medical Decision Differential diagnoses includes but is not limited to gastritis, peptic ulcer disease, GERD, gallbladder disease, pancreatitis, small bowel obstruction, acute coronary syndrome, pericarditis, ischemic bowel, irritable bowel disease, irritable bowel syndrome, appendicitis, diverticulitis, malignancy, hernia, urinary tract infection, torsion, perforation, trauma, infectious. Patient is a 72-year-old female who presents the ER with epigastric/right upper quadrant abdominal pain. She notes this feels like her previous bout of choledocholithiasis. Labs show a leukocytosis of 13.8 thousand. BMP with LFTs , bilirubin lipase is otherwise unremarkable. UA was negative. Ultrasound the right upper quadrant shows CBD dilation along with possible stone in the CBD. Patient was given IV antibiotics which included Cipro and Flagyl for evaluation by GI. Patient was admitted to internal medicine for further workup and likely ERCP. Medication Reconcilliation Current Medication List: was personally reviewed by me Blood Pressure Screening Patient's blood pressure: Normal blood pressure Blood pressure disposition: Did not require urgent referral Consults Time Called: 1208 Consulting Physician: Jesus COWART - GI Returned Call: 1212 We discussed the patient's case. She will come evaluate the patient in the ER. Additional Consults: Time Called: 1250 Consulted Physician: Dr. Méndez - [facility] Returned Call: 1256 Additional Comments: I reviewed the patient's case with her. She will evaluate the patient for further management. Impression Primary Impression: Choledocholithiasis Scribe Attestation The scribe's documentation has been prepared under my direction and personally reviewed by me in its entirety. I confirm that the note above accurately reflects all work, treatment, procedures, and medical decision making performed by me. Departure Information Dispostion Being Evaluated By Hospitalist Referrals Chad Wilder M.D. (PCP) Patient Instructions My [facility]
[2018-01-01] MEDS ORDERED: LEFL20TA PO (14:57)
--- NOTE | 2018-01-01 15:25 | Endo History and Physical ---
History & Physical Date of Service: Jan 01, 2018. Chief Complaint: Nausea and vomitting Referring Physician: History of Present Illness 72 year old female admitted with a 24 hours of nausea and vomitting, ruq US with a possible gallstone in the distal CBD, liver associated enzymes are normal. Past Medical History Arthritis, Asthma, Reflux, Hypertension, Thyroid Disease, Chronic Steroid Use, Kidney Disease Past Surgical History Hx Cardiac Surgery: No Hx Internal Defibrillator: No Hx Pacemaker: No Hx Abdominal Surgery: Yes (LAP ROSEMARY; YANIQUE WITH BSO; C-SECTIONS) Hx Post-Op Nausea and Vomiting: No Hx Cancer Surgery: No Hx Thoracic Surgery: No Hx Orthopedic: No Hx Urinary Tract Surgery: No Social History Smoking Status: Never Smoker Smokeless Tobacco Use: No Hx Substance Use: No Hx Alcohol Use: No Allergies Coded Allergies: Gabapentin (Unverified Allergy, Mild, DELIRIUM, 01/01/18) Amoxicillin (Verified Allergy, Unknown, SEVERE RHEUMATOID ARTHRITIC SYMPTOMS, 01/01/18) Clavulanic Acid (Verified Allergy, Unknown, SEVERE RHEUMATOID ARTHRITIC SYMPTOMS, 01/01/18) Gold-containing Drug Products (Verified Allergy, Unknown, RIDAURA ( AURANOFIN), 01/01/18) Sulfa Antibiotics (Verified Adverse Reaction, Unknown, "give me anxiety", 01/01/18) Current Medications Reported Home Medications Medications Dose Route/Sig Max Daily Dose Days Date Category Zantac (Ranitidine HCl) 150 Mg Tab 150 Mg PO QAM 10/10/17 Reported Biotin 5,000 Mcg Cap 5,000 Mcg PO NOON 10/10/17 Reported Gentamicin Sulfate/0.9% S (Gentamicin In Saline) 1 Inj Inj 2 Sprays NA TID PRN 10/10/17 Reported Voltaren 1% Top Gel (Diclofenac Sodium (Topical)) 1 % Gel 1 Appln TOP QID PRN 08/13/17 Reported Vitamin D (Cholecalciferol) 5,000 Unit Tab 5,000 Units PO QAM 08/13/17 Reported Spironolactone 25 Mg Tab 25 Mg PO QAM 08/13/17 Reported Methylprednisolone 4 Mg Tab 4 Mg PO QAM 08/13/17 Reported Levothyroxine Sodium 100 Mcg Tab 100 Mg PO QAM 08/13/17 Reported Levalbuterol HCl (Levalbuterol) 0.63 Mg/3 Ml Nebu 1 Unit NEB Q4H PRN 08/13/17 Reported Hydroxychloroquine Sulfat (Hydroxychloroquine Sulfate) 200 Mg Tab 300 Mg PO QAM 08/13/17 Reported Iron (Ferrous Sulfate) 325 Mg Tab 1 Tab PO QPM 08/13/17 Reported Questran (Cholestyramine) 4 Gm Pow 1 Pkt PO BID PRN 08/13/17 Reported Caltrate 600 Plus (Calcium Carbonate-Vitamin D W/) 1 Tab Tab 1 Tab PO BID 08/13/17 Reported Ventolin Hfa (Albuterol) 200 Puffs/09624 Mcg Aers 2 Puffs INH Q4 PRN 08/13/17 Reported Spiriva Handihaler (Tiotropium [place]) 30 Puff/540 Mcg Aerp 1 Cap INH QAM 08/13/17 Reported Advair Diskus 500/50 60 Dose (Fluticasone Prop/Salmeterol) 1 Ea Aerp 1 Puff INH BID 08/13/17 Reported Ultram (Tramadol HCl) 50 Mg Tab 1 Tab PO TID PRN 04/05/17 Reported Vitamin B-12 (Cyanocobalamin) 1,000 Mcg Tab 1,000 Mcg PO QAM 11/29/16 Reported Arava (Leflunomide) 20 Mg Tab 20 Mg PO NOON 11/03/16 Reported Lasix (Furosemide) 20 Mg Tab 20 Mg PO QAM 11/26/14 Reported Vitamin C (Ascorbic Acid) 500 Mg Tab 500 Mg PO HS 07/15/14 Reported Tenormin (Atenolol) 25 Mg Tab 25 Mg PO QAM 01/13/11 Reported Vital Signs Weight (Kilograms): 49.800 Height (Feet): 5 Height (Inches): 2.00 Date Time Temp Pulse Resp B/P (MAP) Pulse Ox O2 Delivery O2 Flow Rate FiO2 01/01/18 14:47 72 18 119/52 95 Room Air 01/01/18 13:42 78 18 112/48 94 Room Air 01/01/18 13:40 94 Room Air 01/01/18 12:21 74 18 114/59 99 Room Air 01/01/18 10:37 37.4 69 18 104/55 100 Room Air 01/01/18 09:21 37.1 90 20 123/79 98 Room Air Physical Exam General Appearance: no apparent distress Respiratory/Chest: Respiratory effort: no dyspnea Cardiovascular: Heart Auscultation: RRR, no gallops Abdomen: Inspection & Palpation: soft Assessment and Plan Evaluation for CBD stones, recent RUQ US with a possible filling defect. We have discussd the risks to include bleeding, infection, perforation, pain, pancreatitis and failed billiary cannulation. We have also discussed the role of EGD should the ERCP be negative for choledocholithiasis. Plan ERCP today EGD if ERCP is negative
[2018-01-01] MEDS ORDERED: INDOMETHACIN 50 MG SUPP PR ONE (15:30)
[2018-01-01] MEDS ORDERED: ONDANSETRON INJ 2 MG/ML 2 ML VIAL ONE (15:42)
[2018-01-01] MEDS ORDERED: LIDOCAINE HCL 2% 2 ML VIAL (20MG/ML) ONE (15:42)
[2018-01-01] MEDS ORDERED: NEOSTIGMINE METHYLSULFATE 5 MG/5 ML SYR ONE (15:42)
[2018-01-01] MEDS ORDERED: PROPOFOL IV EMULSION 10 MG/ML 20 ML VIAL IV ONE (15:42)
[2018-01-01] MEDS ORDERED: GLYCOPYRROLATE INJ 0.2 MG/ML VIAL ONE (15:42)
[2018-01-01] MEDS ORDERED: DEXAMETHASONE SOD INJ 4 MG/ML VIAL ONE (15:42)
[2018-01-01] MEDS ORDERED: MIDAZOLAM HCL 1 MG/ML 2ML VIAL ONE (15:43)
[2018-01-01] MEDS ORDERED: FENTANYL CITRATE INJ 50 MCG/1 ML 2 ML VIAL ONE ×2 (15:43)
[2018-01-01] MEDS ORDERED: NALOXONE HCL 0.4 MG/1 ML VIAL/CARP IV PRN (15:45)
[2018-01-01] MEDS ORDERED: FLUMAZENIL 0.1 MG/1 ML 10 ML VIAL IV PRN (15:45)
[2018-01-01] MEDS ORDERED: EpHEDrine SULFATE INJ 50 MG/ML AMP IV PRN (15:45)
[2018-01-01] MEDS ORDERED: ATROPINE SULFATE 0.1 MG/ML 5ML SYR IV PRN (15:45)
[2018-01-01] MEDS ORDERED: LABETALOL HCL IV 5 MG/ML 20ML IV PRN (15:45)
[2018-01-01] MEDS ORDERED: MEPERIDINE HCL 25 MG/ML CARP IV PRN (15:45)
[2018-01-01] MEDS ORDERED: ALBUT/IPRATROP 3MG/0.5MG NEB 3 ML VIAL INH ONE (15:45)
[2018-01-01] MEDS ORDERED: PHENYLEPHRINE 100MCG/ML 5ML SYR IV PRN (15:45)
[2018-01-01] MEDS ORDERED: HYDROmorphone INJ 2 MG/ML SYR/VIAL IV PRN (15:45)
[2018-01-01] MEDS ORDERED: FENTANYL CITRATE INJ 50 MCG/1 ML 2 ML VIAL IV PRN (15:45)
[2018-01-01] MEDS ORDERED: CYAN10005 PO (15:58)
[2018-01-01] MEDS ORDERED: ESMOLOL HCL 10 MG/ML 10 ML VIAL ONE (16:03)
--- NOTE | 2018-01-01 16:24 | GI REPORT ---
Procedure Date: 01/01/2018 3:30 PM Procedure: ERCP Indications: Abdominal pain of suspected biliary origin, Bile duct stone on Ultrasound Medicines: General Anesthesia Complications: No immediate complications. Estimated blood loss: Minimal. Estimated Blood Loss: Estimated blood loss was minimal. Procedure: Pre-Anesthesia Assessment: - Prior to the procedure, a History and Physical was performed, and patient medications, allergies and sensitivities were reviewed. The patient's tolerance of previous anesthesia was reviewed. - The risks and benefits of the procedure and the sedation options and risks were discussed with the patient. All questions were answered and informed consent was obtained. - Patient identification and proposed procedure were verified prior to the procedure by the physician, the nurse and the environmental services floor tech. The procedure was verified in the procedure room. - Pre-procedure physical examination revealed no contraindications to sedation. - ASA Grade Assessment: III - A patient with severe systemic disease. - After reviewing the risks and benefits, the patient was deemed in satisfactory condition to undergo the procedure. - The anesthesia plan was to use general anesthesia. - Immediately prior to administration of medications, the patient was re-assessed for adequacy to receive sedatives. - The heart rate, respiratory rate, oxygen saturations, blood pressure, adequacy of pulmonary ventilation, and response to care were monitored throughout the procedure. - The physical status of the patient was re-assessed after the procedure. After obtaining informed consent, the scope was passed under direct vision. Throughout the procedure, the patient's blood pressure, pulse, and oxygen saturations were monitored continuously. The Scope was introduced through the mouth, and advanced to the duodenum and used to inject contrast into the bile duct. The ERCP was accomplished without difficulty. The patient tolerated the procedure well. Findings: A educational assistant teacher film of the abdomen was obtained. Surgical clips, consistent with a previous cholecystectomy, were seen in the area of the right upper quadrant of the abdomen. The esophagus was successfully intubated under direct vision without detailed examination of the pharynx, larynx, and associated structures, and upper GI tract. The upper GI tract was grossly normal. The major papilla was located entirely within a diverticulum. A biliary sphincterotomy had been performed. The sphincterotomy appeared stenosed or narrowed. The bile duct was deeply cannulated with the short-nosed traction sphincterotome (Omni 35) and 0.035 in Acrobat 2 guidewire. Contrast was injected. I personally interpreted the bile duct images. Contrast extended to the hepatic ducts. A long cystic duct stump originated in the in the biliary system. The main bile duct was moderately dilated. The largest diameter was 12 mm. The lower third of the main bile duct contained filling defect(s) thought to be sludge. The biliary sphincterotomy was extended with a monofilament Fusion OMNI sphincterotome using ERBE electrocautery. There was no post-sphincterotomy bleeding. To discover objects, the biliary tree was swept with an 15 mm balloon and 18 mm balloon starting at the bifurcation. Cast-like sludge was swept from the duct. Nothng remained on occlusion cholangiogram. The total fluoroscopy exposure time was 1 minute and 41 seconds. Indomethacin 100 mg was given via suppository to decrease the risk of post-ERCP pancreatitis (PEP). The endoscope was withdrawn from the patient. Impression: - The major papilla was located entirely within a diverticulum. - Prior biliary sphincterotomy appeared stenosed or narrowed. - The examination was suspicious for sludge. - The biliary tree was swept and sludge was found. - Indomethacin given to decrease risk of post-ERCP pancreatitis. Recommendation: - Avoid aspirin and nonsteroidal anti-inflammatory medicines for 5 days. - Clear liquid diet today. - Observe patient's clinical course following today's ERCP with therapeutic intervention. - Continue antibiotic coverage for 5 dyas - Ursodiol 300 mg twice daily . Griffin Doll D.O. Griffin Doll, 01/01/2018 4:23:38 PM This report has been signed electronically. Note Initiated On: 01/01/2018 3:30 PM I attest to the content of the Intraoperative Record and orders documented therein, exceptions below
--- NOTE | 2018-01-01 16:24 | [facility] Post Operative Brief Note ---
Immediate Operative Summary Operative Date Jan 01, 2018. Pre-Operative Diagnosis Suspected gallstones Post-Operative Diagnosis Biliary sludge Procedure(s) Performed Endoscopic retrograde cholangiopancreatography, sphincterotomy, sludge extraction Surgeon Dr. Doll Financial Professional Surgeon(s) None Estimated Blood Loss 0ml Findings Consistent with Post-Op Diagnosis Specimens None Drains None Anesthesia Type General Disposition Disposition: Recovery Room / PACU
--- NOTE | 2018-01-01 16:27 | Progress Note ---
Progress Note Date of Service Jan 01, 2018. Progress Note ERCP performed today, please see procedure note for details. We did see stenosis of a prior sphincterotomy, this was extended today. A moderate amount of thick / cast like biliary studge was removed. Recomendations Clear liquid diet today 5 day course of Cipro Ursodiol 300 mg twice daily as OP to try and prevent recurrence of sludge / stones
--- NOTE | 2018-01-01 16:35 | DIAGNOSTIC IMAGING REPORT ---
ERCP BILIARY DUCTAL CLINICAL HISTORY: DUCT EXPLORATION COMPARISON STUDY: ERCP 10/20/2017. FLUOROSCOPY TIME: 1 minute and 41 seconds. 17 fluoroscopic spot images. FINDINGS: Cholecystectomy clips are noted. The steel plate printer positioned the endoscope to the second portion of the duodenum and cannulated the ampulla. Contrast was injected. Multiple filling defects consistent with stones are identified within the distended common bile duct. A balloon sleep was performed. Post procedure imaging demonstrates a normal caliber common bile duct. No definite filling defects identified on the final image. IMPRESSION: Fluoroscopy provided for your ERCP as described above. Electronically signed by: Robbin Ortiz M.D. 01/01/2018 4:34 PM Dictated Date/Time: 01/01/2018 4:31 PM
--- NOTE | 2018-01-01 16:56 | Anesthesiology Progress Note ---
Anesthesia Post Op Note Date & Time Jan 01, 2018 at 16:56 Vital Signs Pain Intensity: 0 Vital Signs Past 12 Hours Date Time Temp Pulse Resp B/P (MAP) Pulse Ox O2 Delivery O2 Flow Rate FiO2 01/01/18 16:45 80 16 134/85 100 Nasal Cannula 3 01/01/18 16:35 81 16 130/60 100 Oxymask 5 01/01/18 16:29 36.1 80 16 126/52 100 Oxymask 10 01/01/18 15:38 73 16 97 Room Air 01/01/18 15:15 36.2 75 16 132/74 (93) 96 Room Air 01/01/18 14:47 72 18 119/52 95 Room Air 01/01/18 13:42 78 18 112/48 94 Room Air 01/01/18 13:40 94 Room Air 01/01/18 12:21 74 18 114/59 99 Room Air 01/01/18 10:37 37.4 69 18 104/55 100 Room Air 01/01/18 09:21 37.1 90 20 123/79 98 Room Air Notes Mental Status: alert / awake / arousable, participated in evaluation Pt Amnestic to Procedure: Yes Nausea / Vomiting: adequately controlled Pain: adequately controlled Airway Patency, RR, SpO2: stable & adequate BP & HR: stable & adequate Hydration State: stable & adequate Anesthetic Complications: no major complications apparent
[2018-01-01] MEDS ORDERED: SODIUM CHLORIDE 0.9% 1000ML 1,000 ML IV SCH (17:30)
[2018-01-01] MEDS ORDERED: DICLOFENAC SOD 1% GEL 100 GM TUBE EXT PRN (18:00)
[2018-01-01] MEDS: FLUTICASONE/SALMETEROL (ADVAIR) 500/50 INH 14 PUFF INH SCH (20:44)
[2018-01-01] MEDS: CALCIUM 600MG + VIT D 400 IU TAB PO SCH (20:44)
[2018-01-01] MEDS ORDERED: CIPROFLOXACIN / D5W 400 MG in PREMIXED IN D5W 200 ML IV SCH (21:00)
[2018-01-01] MEDS ORDERED: ASCORBIC ACID 500 MG TAB PO SCH (21:00)
[2018-01-01] MEDS: METRONIDAZOLE / NSS 500 MG in PREMIXED NSS 100 ML IV SCH (21:42)
[2018-01-01] MEDS ORDERED: DICL1GEL12 TOP (22:20)
[2018-01-01] MEDS ORDERED: LEVO100T7 PO (22:20)
[2018-01-01] MEDS ORDERED: CALCTAB7 PO (22:20)
[2018-01-01] MEDS ORDERED: CHOL1TAB42 PO (22:20)
[2018-01-01] MEDS ORDERED: FERR1TAB23 PO (22:20)
[2018-01-01] MEDS ORDERED: CHOL4POW11 PO (22:20)
[2018-01-01] MEDS ORDERED: VNTHFA/IN INH (22:20)
[2018-01-01] MEDS ORDERED: SPR25 PO (22:20)
[2018-01-01] MEDS ORDERED: ADVIN50/60 INH (22:20)
[2018-01-01] MEDS ORDERED: PLQ200 PO (22:20)
[2018-01-01] MEDS ORDERED: MDR4 PO (22:20)
[2018-01-01] MEDS ORDERED: SPRIN/30 INH (22:20)
[2018-01-01] MEDS ORDERED: XPNINS NEB (22:20)
[2018-01-01] MEDS: CIPROFLOXACIN / D5W 400 MG in PREMIXED IN D5W 200 ML IV SCH (23:53)
[2018-01-02 03:05] VITALS: BP 125/66; PULSE 70; TEMP 36.8; O2SAT 97
[2018-01-02] MEDS: METRONIDAZOLE / NSS 500 MG in PREMIXED NSS 100 ML IV SCH ×2 (05:54→14:00)
[2018-01-02] MEDS ORDERED: LEVOTHYROXINE 100 MCG TAB PO SCH ×2 (06:00)
[2018-01-02 07:36] LABS: HEMATOCRIT 29.6 % (37-47); HEMOGLOBIN 10.4 g/dL (12.0-16.0); MEAN CELL VOLUME 88.6 fL (80-100); MEAN CORPUSCULAR HEMOGLOBIN 31.1 pg (25-34); MEAN CORPUSCULAR HGB CONC 35.1 g/dl (32-36); MEAN PLATELET VOLUME 8.5 fL (7.4-10.4); PLATELET COUNT 261 K/uL (130-400); RED CELL DISTRIBUTION WIDTH CV 12.5 % (11.5-14.5); RED CELL DISTRIBUTION WIDTH SD 40.8 fL (36.4-46.3); WHITE BLOOD COUNT 9.62 K/uL (4.8-10.8)
[2018-01-02 07:43] VITALS: BP 156/74; PULSE 82; TEMP 36.6; O2SAT 98
[2018-01-02 07:57] LABS: BASO % 0.1 %; BASO ABS # 0.01 K/uL (0-0.2); IG# 0.03 K/uL (0.00-0.02); LYMPH % 7.2 %; LYMPH ABS # 0.69 K/uL (1.2-3.4); MONO % 5.7 %; MONO ABS # 0.55 K/uL (0.11-0.59); NEUT % 86.7 %; NEUT ABS # 8.34 K/uL (1.4-6.5)
[2018-01-02 08:12] LABS: ALBUMIN 2.7 gm/dl (3.4-5.0); CALCIUM 8.8 mg/dl (8.5-10.1); CREATININE 1.37 mg/dl (0.60-1.20); POTASSIUM 3.5 mmol/L (3.5-5.1)
[2018-01-02 08:16] LABS: TOTAL PROTEIN 5.8 gm/dl (6.4-8.2)
[2018-01-02] MEDS ORDERED: METHYLPREDNISOLONE 4 MG TAB PO SCH (09:00)
[2018-01-02] MEDS ORDERED: CHOLECALCIFEROL 1000 INTER.UNIT TAB PO SCH (09:00)
[2018-01-02] MEDS ORDERED: CYANOCOBALAMIN 500 MCG TAB (VIT B-12) PO SCH (09:00)
[2018-01-02] MEDS ORDERED: TIOTROPIUM BROMIDE 5 PUFF/90 MCG INH INH SCH (09:00)
[2018-01-02] MEDS ORDERED: RANITIDINE HCL 150 MG TAB PO SCH (09:00)
[2018-01-02] MEDS ORDERED: HYDROXYCHLOROQUINE SULFATE 200 MG TAB PO SCH (09:00)
[2018-01-02 09:06] LABS: HEMOGLOBIN A1C 5.8 % (4.5-5.6)
[2018-01-02] MEDS: FLUTICASONE/SALMETEROL (ADVAIR) 500/50 INH 14 PUFF INH SCH (09:21)
[2018-01-02] MEDS: CALCIUM 600MG + VIT D 400 IU TAB PO SCH (09:22)
[2018-01-02] MEDS ORDERED: URSO300C8 PO (11:00)
[2018-01-02] MEDS ORDERED: CPR500 PO (11:00)
--- NOTE | 2018-01-02 11:17 | Discharge Summary ---
Discharge Summary Date of Service Jan 02, 2018. 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 Pre-Operative Diagnosis Suspected gallstones Post-Operative Diagnosis Biliary sludge Procedure(s) Performed Endoscopic retrograde cholangiopancreatography, sphincterotomy, sludge extraction Surgeon Dr. Doll Electric Sign Assembler Surgeon(s) None Estimated Blood Loss 0ml Findings Consistent with Post-Op Diagnosis Specimens None Drains None Anesthesia Type General Disposition Disposition: Recovery Room / PACU <Electronically signed by Griffin Doll DO> Signed: 01/01/18 1624 Signed: The status of this report is Signed * If report status is Draft, the document has not been finalized by the responsible provider ERCP BILIARY DUCTAL CLINICAL HISTORY: DUCT EXPLORATION COMPARISON STUDY: ERCP 10/20/2017. FLUOROSCOPY TIME: 1 minute and 41 seconds. 17 fluoroscopic spot images. FINDINGS: Cholecystectomy clips are noted. The career services assistant positioned the endoscope to the second portion of the duodenum and cannulated the ampulla. Contrast was injected. Multiple filling defects consistent with stones are identified within the distended common bile duct. A balloon sleep was performed. Post procedure imaging demonstrates a normal caliber common bile duct. No definite filling defects identified on the final image. IMPRESSION: Fluoroscopy provided for your ERCP as described above. Electronically signed by: Robbin Ortiz M.D. 01/01/2018 4:34 PM Dictated Date/Time: 01/01/2018 4:31 PM The status of this report is Signed. Draft = Not yet reviewed or approved by Radiologist. Signed = Reviewed and approved by Radiologist. ABDOMINAL ULTRASOUND, RIGHT UPPER QUADRANT HISTORY: Right upper quadrant abdominal pain previous jinny 1999 and then infected stone 2016 . COMPARISON: CT of the abdomen and pelvis and MRCP September 11, 2017. FINDINGS: No hepatic lesions are identified. There is mild dilatation of the common bile duct which is unchanged since prior CT of September 11, 2017. Common bile duct measures 8 mm in caliber. Pneumobilia is noted. Note is also made of a 6 mm echogenic nonshadowing focus within the mid to distal common bile duct. The pancreas is unremarkable although partially obscured. There is no right hydronephrosis. The gallbladder is surgically absent. IMPRESSION: No change in mild biliary ductal dilatation status post cholecystectomy. Pneumobilia. 6 mm echogenic nonshadowing focus within the mid to distal common bile duct could reflect a common bile duct calculus or pneumobilia. Electronically signed by: Jonathan Carreon M.D. 01/01/2018 11:54 AM Dictated Date/Time: 01/01/2018 11:49 AM The status of this report is Signed. Draft = Not yet reviewed or approved by Radiologist. Signed = Reviewed and approved by Radiologist. Consultations: GI- Dr. Doll Medication Reconciliation New Medications: Ciprofloxacin (Ciprofloxacin HCl) 500 Mg Tab 500 MG PO BID for 5 Days, #10 TAB Ursodiol (Ursodiol) 300 Mg Cap 300 MG PO BID for 30 Days, #60 CAP Continued Medications: Albuterol Hfa (Ventolin Hfa) 200 Puffs/18441 Mcg Aers 2 PUFFS INH Q4 PRN for SOB/Wheezing, #1 INHALER Ascorbic Acid (Vitamin C) 500 Mg Tab 500 MG PO HS Atenolol (Tenormin) 25 Mg Tab 25 MG PO QAM, 0 Refills Biotin (Biotin) 5,000 Mcg Cap 5000 MCG PO NOON Calcium Carbonate-Vitamin D W/ (Caltrate 600 Plus) 1 Tab Tab 1 TAB PO BID, TAB Cholecalciferol (Vitamin D) 5,000 Unit Tab 5000 UNITS PO QAM Cholestyramine (Questran) 4 Gm Pow 1 PKT PO BID PRN for Diarrhea Cyanocobalamin (Vitamin B-12) 1,000 Mcg Tab 1000 MCG PO QAM, TAB Diclofenac Sodium (Topical) (Voltaren 1% Top Gel) 1 % Gel 1 APPLN TOP QID PRN for Pain Ferrous Sulfate (Iron) 325 Mg Tab 1 TAB PO QPM Fluticasone Prop/Salmeterol (Advair Diskus 500/50 60 Dose) 1 Ea Aerp 1 PUFF INH BID, INHALER Furosemide (Lasix) 20 Mg Tab 20 MG PO QAM, TAB Gentamicin In Saline (Gentamicin Sulfate/0.9% S) 1 Inj Inj 2 SPRAYS NA TID PRN for SINUS Hydroxychloroquine Sulfate (Hydroxychloroquine Sulfat) 200 Mg Tab 300 MG PO QAM Leflunomide (Arava) 20 Mg Tab 20 MG PO NOON, TAB Levalbuterol (Levalbuterol HCl) 0.63 Mg/3 Ml Nebu 1 UNIT NEB Q4H PRN for SOB/Wheezing Levothyroxine Sodium (Levothyroxine Sodium) 100 Mcg Tab 100 MCG PO QAM Methylprednisolone (Methylprednisolone) 4 Mg Tab 4 MG PO QAM for RHEUMATOID ARTHRITIS Ranitidine (Zantac) 150 Mg Tab 150 MG PO QAM, TAB Spironolactone (Spironolactone) 25 Mg Tab 25 MG PO QAM Tiotropium [place] (Spiriva Handihaler) 30 Puff/540 Mcg Aerp 1 CAP INH QAM, INHALER Tramadol (Ultram) 50 Mg Tab 1 TAB PO TID PRN for prn Referrals At Discharge Follow up Referrals: Family Practice Referral - Within 1 Week with Chad Wilder M.D. Discharge Exam Review of Systems: Constitutional: No fever, No chills, No sweats, No weakness, No fatigue Eyes: No worsening of vision ENT: No hearing loss Respiratory: No cough, No shortness of breath, No hemoptysis Cardiovascular: No chest pain, No edema, No palpitations Abdomen: No pain, No nausea, No vomiting, No diarrhea, No constipation Musculoskeletal: No joint pain, No muscle pain, No swelling, No calf pain Genitourinary - Female: No dysuria, No hematuria Neurologic: No weakness, No numbness/tingling Psychiatric: No depression symptoms, No anxiety Endocrine: No fatigue Hematologic / Lymphatic: No abnormal bleeding/bruising Integumentary: No rash, No itch, No new/changing skin lesions Physical Exam: General Appearance: no apparent distress Eyes: normal inspection, PERRL ENT: hearing grossly normal Neck: supple Respiratory/Chest: lungs clear, no respiratory distress, no accessory muscle use Cardiovascular: regular rate, rhythm Abdomen / GI: normal bowel sounds, non tender, soft Extremities: no calf tenderness, no pedal edema Neurologic/Psychiatric: alert, normal mood/affect, oriented x 3 Skin: normal color, warm/dry, no rash Hospital Course This is a 72 yo F with PMHx of gallstones, s/p cholecystectomy in 2004, with choledocholithiasis in 2010 s/p ERCP. In Aug 2017 she presented with similar abdominal pain and nausea and vomiting, then underwent MRCP which found choledocholithiasis and stricture. She also had acute hepatitis at that time which resolved with PO antibiotics and fluids. This time she presents with acute onset of nausea and vomiting last night around 11 PM. Biliary sludge, stenosis of prior sphincterotomy: - Admitted to med/surg - Gallbladder ultrasound showing 6 mm echogenic nonshadowing foci which possibly represents choledocholithiasis or possible pneumobilia - ERCP on 01/[address] 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 Discharge Instructions Please refer to the electronic Patient Visit Report (Discharge Instructions) for additional information. Follow-Up Please follow-up with your PCP within 5-7 days Please follow-up/keep all of your subspecialty appointments Additional Copies To Chad Wilder M.D.
--- NOTE | 2018-01-02 11:17 | Discharge Instructions ---
Discharge Instructions Date of Service Jan 02, 2018. Admission Reason for Admission: Choledocholithiasis Discharge Discharge Diagnosis / Problem: stenosis of a prior sphincterotomy, biliary sludge Discharge Goals Goal(s): Decrease discomfort, Improve function, Improve disease control, Learn about illness, Diagnostic testing, Therapeutic intervention, Prevent Disease Progression Activity Recommendations Activity Limitations: resume your previous activity . Instructions / Follow-Up Instructions / Follow-Up Biliary sludge: Ursodiol 300 mg twice daily Ciprofloxacin 500 mg twice daily until prescription is complete Avoid NSAIDs for 5 days (ex: Aspirin, Motrin, Ibuprofen, Naprosyn) Blood work on 01/05 as discussed Resume all other regular home medications as prescribed FOLLOW-UPS: Please follow-up with your PCP within 5-7 days Please follow-up/keep all of your subspecialty appointments Current Hospital Diet Patient's current hospital diet: Diabetes Type 2 Diet, AHA Diet (Heart Healthy) , Low Fat Diet Discharge Diet Recommended Diet: AHA Diet (Heart Healthy), Low Fat Diet Procedures Procedures Performed: Endoscopic retrograde cholangiopancreatography, sphincterotomy, sludge extraction Pending Studies Studies pending at discharge: no Laboratory Results Hemoglobin A1c Test 01/02/18 07:18 Range/Units Estimated Average Glucose 120 mg/dl Hemoglobin A1c 5.8 H 4.5-5.6 % Medical Emergencies . Who to Call and When: Medical Emergencies: If at any time you feel your situation is an emergency, please call 911 immediately. . Non-Emergent Contact Non-Emergency issues call your: Primary Care Provider, Process Area Supervisor Call Non-Emergent contact if: you have a fever, your pain is not controlled, your pain is worsening, your pain is unusual for you, your pain is concerning you, you have any medication questions . . "Provider Documentation" section prepared by Addie Bustillos. . VTE Core Measure Inpt VTE Proph given/why not?: Wilber Mcneil, YUSUF's
--- NOTE | 2018-01-02 11:25 | Gastroenterology Progress Note ---
Progress Note Date of Service: Jan 02, 2018 Subjective Pt evaluation today including: conversation w/ patient, physical exam, chart review, lab review, review of studies, review of inpatient medication list Ms. Herrera is a 72 yr old female who underwent ERCP by Dr. Doll for choledocholithiasis for abdominal pain and US with choledocholithiasis. Sludge was swept from the duct through existing sphincterotomy. Pt with slight LFT elevation today. Pt feels well today, is sitting up at the bedside, denies any abdominal pain and is hungry. Doing well with clear fluids po. Review of Systems Constitutional: No fever ENT: No hearing loss Respiratory: No cough Abdomen: No pain, No nausea, No vomiting, No diarrhea Female : No dysuria Neuro: No memory loss Psych: No depression symptoms Heme: No abnormal bleeding/bruising Endo: No fatigue Skin: No itch Medications Current Inpatient Medications Medications (Trade) Dose Ordered Sig/Kailash Route Start Time Stop Time Status Last Admin Dose Admin Ciprofloxacin/ Dextrose 400 mg/ Prmx 200 ml @ 100 mls/hr Q12H IV 01/02/18 00:00 01/12/18 00:00 01/01/18 23:53 100 MLS/HR Metronidazole 500 mg/Prmx 100 ml @ 100 mls/hr Q8H IV 01/01/18 22:00 01/11/18 21:59 01/02/18 05:54 100 MLS/HR Acetaminophen (Tylenol Tab) 650 mg Q4H PRN PO 01/01/18 13:45 01/31/18 13:44 Ondansetron HCl (Zofran Inj) 4 mg Q6H PRN IV 01/01/18 13:45 01/31/18 13:44 Sodium Chloride 1,000 ml @ 80 mls/hr [id number] IV 01/01/18 17:30 01/31/18 17:29 01/01/18 18:46 80 MLS/HR Albuterol (Ventolin Hfa Inhaler) 2 puffs Q4 PRN INH 01/01/18 13:45 01/31/18 13:44 Ascorbic Acid (Vitamin C Tab) 500 mg HS PO 01/01/18 21:00 01/31/18 20:59 01/01/18 20:44 500 MG Calcium/Vitamin D (Caltrate Plus Tab) 1 tab BID PO 01/01/18 21:00 01/31/18 20:59 01/02/18 09:22 1 TAB Cyanocobalamin (Vitamin B-12 Tab) 1,000 mcg QAM PO 01/02/18 09:00 02/01/18 08:59 01/02/18 09:23 1,000 MCG Diclofenac Sodium (Voltaren 1% Top Gel) 1 appln QID PRN EXT 01/01/18 18:00 01/31/18 17:59 Salmeterol Xinafoate/ Fluticasone (Advair Diskus 500/50 Inh) 1 puff BID INH 01/01/18 21:00 01/31/18 20:59 01/02/18 09:21 1 PUFF Methylprednisolone (Medrol Tab) 4 mg QAM PO 01/02/18 09:00 02/01/18 08:59 01/02/18 09:22 4 MG Ranitidine HCl (zANTac TAB) 150 mg QAM PO 01/02/18 09:00 02/01/18 08:59 01/02/18 09:23 150 MG Tiotropium [place] (Spiriva Handihaler Inhaler) 1 puff QAM INH 01/02/18 09:00 02/01/18 08:59 01/02/18 09:20 1 PUFF Tramadol HCl (Ultram Tab) 50 mg TID PRN PO 01/01/18 13:45 01/31/18 13:44 Cholecalciferol (Vitamin D Tab) 5,000 inter.unit QAM PO 01/02/18 09:00 02/01/18 08:59 01/02/18 09:23 5,000 INTER.UNIT Hydroxychloroquine Sulfate (Plaquenil Tab) 300 mg QAM PO 01/02/18 09:00 02/01/18 08:59 01/02/18 09:22 300 MG Levothyroxine Sodium (Synthroid Tab) 100 mcg DAILYBB PO 01/02/18 06:00 02/01/18 05:59 01/02/18 05:55 100 MCG Objective Vital Signs Date Time Temp Pulse Resp B/P (MAP) Pulse Ox O2 Delivery O2 Flow Rate FiO2 01/02/18 07:43 36.6 82 16 156/74 (101) 98 Room Air 01/02/18 03:05 36.8 70 14 125/66 (85) 97 Room Air 01/01/18 23:45 Room Air 01/01/18 23:13 36.7 77 14 121/67 (85) 96 Room Air 01/01/18 20:13 36.9 72 17 131/68 (89) 97 Room Air 01/01/18 19:10 36.8 86 18 138/64 (88) 98 Nasal Cannula 2.0 Humidified Oxygen 01/01/18 18:10 36.8 77 18 132/82 (99) 98 Nasal Cannula 2.0 Humidified Oxygen 01/01/18 17:40 36.5 76 18 137/74 (95) 98 Nasal Cannula 2.0 Humidified Oxygen 01/01/18 17:20 98 Nasal Cannula 2.0 Humidified Oxygen 01/01/18 17:10 37.0 74 17 138/71 (93) 98 Nasal Cannula 2.0 Humidified Oxygen 01/01/18 17:10 37.0 74 16 138/71 (93) 98 Nasal Cannula 2.0 Humidified Oxygen 01/01/18 17:05 74 16 137/71 100 Nasal Cannula 3 01/01/18 16:55 36.4 78 14 142/72 100 Nasal Cannula 3 01/01/18 16:45 80 16 134/85 100 Nasal Cannula 3 01/01/18 16:35 81 16 130/60 100 Oxymask 5 01/01/18 16:29 36.1 80 16 126/52 100 Oxymask 10 01/01/18 15:38 73 16 97 Room Air 01/01/18 15:15 36.2 75 16 132/74 (93) 96 Room Air 01/01/18 14:47 72 18 119/52 95 Room Air 01/01/18 13:42 78 18 112/48 94 Room Air 01/01/18 13:40 94 Room Air 01/01/18 12:21 74 18 114/59 99 Room Air Physical Exam General Appearance: no apparent distress ENT: pharynx normal Neck: thyroid normal, no JVD Respiratory/Chest: lungs clear Cardiovascular: regular rate, rhythm, no JVD, no murmur Abdomen: soft Extremities: no pedal edema Neurologic/Psych: alert, normal mood/affect, oriented x 3 Skin: no jaundice Laboratory Results Last 24 Hours Test 01/01/18 12:00 01/01/18 16:38 01/01/18 20:50 01/02/18 07:18 Urine Color YELLOW Urine Appearance CLEAR Urine pH 5.5 Urine Specific Mertens 1.015 Urine Protein NEG Urine Glucose (UA) NEG Urine Ketones NEG Urine Occult Blood NEG Urine Nitrite NEG Urine Bilirubin NEG Urine Urobilinogen NEG Urine Leukocyte Esterase NEG Urine WBC (Auto) 1-5 /hpf Urine RBC (Auto) 0-4 /hpf Urine Hyaline Casts (Auto) 1-5 /lpf Urine Epithelial Cells (Auto) 5-10 /lpf Urine Bacteria (Auto) NEG Bedside Glucose 94 mg/dl 253 mg/dl White Blood Count 9.62 K/uL Red Blood Count 3.34 M/uL Hemoglobin 10.4 g/dL Hematocrit 29.6 % Mean Corpuscular Volume 88.6 fL Mean Corpuscular Hemoglobin 31.1 pg Mean Corpuscular Hemoglobin Concent 35.1 g/dl Platelet Count 261 K/uL Mean Platelet Volume 8.5 fL Neutrophils (%) (Auto) 86.7 % Lymphocytes (%) (Auto) 7.2 % Monocytes (%) (Auto) 5.7 % Eosinophils (%) (Auto) 0.0 % Basophils (%) (Auto) 0.1 % Neutrophils # (Auto) 8.34 K/uL Lymphocytes # (Auto) 0.69 K/uL Monocytes # (Auto) 0.55 K/uL Eosinophils # (Auto) 0.00 K/uL Basophils # (Auto) 0.01 K/uL RDW Standard Deviation 40.8 fL RDW Coefficient of Variation 12.5 % Immature Granulocyte % (Auto) 0.3 % Immature Granulocyte # (Auto) 0.03 K/uL Sodium Level 134 mmol/L Potassium Level 3.5 mmol/L Chloride Level 102 mmol/L Carbon Dioxide Level 23 mmol/L Anion Gap 9.0 mmol/L Blood Urea Nitrogen 17 mg/dl Creatinine 1.37 mg/dl Est Creatinine Clear Calc Drug Dose 29.6 ml/min Estimated GFR () 44.9 Estimated GFR (Non- 38.7 BUN/Creatinine Ratio 12.5 Random Glucose 107 mg/dl Estimated Average Glucose 120 mg/dl Hemoglobin A1c 5.8 % Calcium Level 8.8 mg/dl Total Bilirubin 0.8 mg/dl Direct Bilirubin 0.2 mg/dl Aspartate Amino Transf (AST/SGOT) 92 U/L Alanine Aminotransferase (ALT/SGPT) 142 U/L Alkaline Phosphatase 270 U/L Total Protein 5.8 gm/dl Albumin 2.7 gm/dl Test 01/02/18 08:19 Bedside Glucose 101 mg/dl Assessment and Plan Ms. Herrera is a 72 yr old female who is post procedure day #1 from ERCP with sweaping of the bile duct for biliary sludge. Plan: 1. Recommend Ursodiol 300mg BID, regularly with breakfast and supper with the goal of prevention of sludge/choledocholithiasis in the future. 2. Low fat diet. If tolerates well, could be discharged today. 3. F/u LFTs approx weekly with PCP until resolution. I performed a history and physical examination of the patient. I have discussed the patient's case, impression and plan with SUPA Duran. Her note reflects my findings and plan. Doing well post ERCP. No abdominal pain. Advance diet and consider D/C. Fabiano Zamora MD
[2018-01-02 11:41] VITALS: BP 156/69; PULSE 111; TEMP 37.2; O2SAT 98
[2018-01-02] MEDS: CIPROFLOXACIN / D5W 400 MG in PREMIXED IN D5W 200 ML IV SCH (12:00)
[2018-01-02] MEDS ORDERED: NURSING VERBAL MED ORDER ONE (12:45)
[2018-01-02 14:40] VITALS: BP 156/69; PULSE 111; TEMP 37.2; O2SAT 98
== END 2018-01-02 15:29 | disposition home or self-care (01) | DRG 446 ==
LOC: C.EDB 09:13 → C.MSW 13:37 → ENRESERV 14:00
PROVIDERS: ADMIT Family Medicine; ATTEND Internal Medicine
PROC: 0F7C8ZZ Dilation of Ampulla of Vater, Via Natural or Artificial Opening Endoscopic (ICD-10-PCS; principal; 2018-01-01 13:15)
PROC: 0F998ZZ Drainage of Common Bile Duct, Via Natural or Artificial Opening Endoscopic (ICD-10-PCS; principal; 2018-01-01 13:15)
DX: K83.1 Obstruction of bile duct (principal); K83.8 Other specified diseases of biliary tract; M06.9 Rheumatoid arthritis, unspecified; E09.9 Drug or chemical induced diabetes mellitus without complications; T38.0X5D Adverse effect of glucocorticoids and synthetic analogues, subsequent encounter; I12.9 Hypertensive chronic kidney disease with stage 1 through stage 4 chronic kidney disease, or unspecified chronic kidney disease; N18.3 Chronic kidney disease, stage 3 (moderate); J45.909 Unspecified asthma, uncomplicated; G89.29 Other chronic pain; M54.5 Low back pain; E03.9 Hypothyroidism, unspecified; K21.9 Gastro-esophageal reflux disease without esophagitis; Z90.49 Acquired absence of other specified parts of digestive tract; Z90.710 Acquired absence of both cervix and uterus; Z90.722 Acquired absence of ovaries, bilateral; Z90.79 Acquired absence of other genital organ(s); Z98.890 Other specified postprocedural states; Z79.52 Long term (current) use of systemic steroids; Z79.899 Other long term (current) drug therapy; Z88.0 Allergy status to penicillin; Z88.2 Allergy status to sulfonamides; Z88.8 Allergy status to other drugs, medicaments and biological substances

== ENCOUNTER → 2018-01-17 | Outpatient (CLI) | payer BC ==
[~2018-01-17] MED LIST changes: +ADVIN50/60 INH; +CALCTAB7 PO; +CHOL1TAB42 PO; +CHOL4POW11 PO; +CPR500 PO; +CYAN10005 PO; +DICL1GEL12 TOP; +FERR1TAB23 PO; +LEFL20TA PO; +LEVO100T7 PO; +MDR4 PO; +PLQ200 PO; +SPR25 PO; +SPRIN/30 INH; +TRAM-10 PO; +URSO300C8 PO; +VNTHFA/IN INH; +XPNINS NEB
[2018-01-17 15:11] LABS: ALBUMIN 3.7 gm/dl (3.4-5.0); ALT/SGPT 25 U/L (12-78); BLOOD UREA NITROGEN 23 mg/dl (7-18); CALCIUM 9.1 mg/dl (8.5-10.1); CARBON DIOXIDE 27 mmol/L (21-32); CREATININE 1.31 mg/dl (0.60-1.20); GLUCOSE 117 mg/dl (70-99); POTASSIUM 3.2 mmol/L (3.5-5.1); SODIUM 130 mmol/L (136-145)
[2018-01-17 15:13] LABS: ALKALINE PHOSPHATASE 121 U/L (45-117); AST/SGOT 15 U/L (15-37); PHOSPHORUS 3.2 mg/dl (2.5-4.9); TOTAL PROTEIN 7.1 gm/dl (6.4-8.2)
== END | disposition home or self-care (01) ==
LOC: C.LAB1850 13:41
PROVIDERS: ATTEND Internal Medicine Nephrology
DX: I12.9 Hypertensive chronic kidney disease with stage 1 through stage 4 chronic kidney disease, or unspecified chronic kidney disease (principal); E03.9 Hypothyroidism, unspecified; E11.9 Type 2 diabetes mellitus without complications; R74.8 Abnormal levels of other serum enzymes; E55.9 Vitamin D deficiency, unspecified; N18.3 Chronic kidney disease, stage 3 (moderate)

== ENCOUNTER → 2018-01-22 | Outpatient (CLI) | payer BC ==
[2018-01-22 12:55] LABS: ALBUMIN 3.9 gm/dl (3.4-5.0); BLOOD UREA NITROGEN 26 mg/dl (7-18); CALCIUM 9.6 mg/dl (8.5-10.1); CARBON DIOXIDE 25 mmol/L (21-32); CREATININE 1.47 mg/dl (0.60-1.20); GLUCOSE 111 mg/dl (70-99); POTASSIUM 3.7 mmol/L (3.5-5.1); SODIUM 130 mmol/L (136-145)
== END | disposition home or self-care (01) ==
LOC: C.LABPVFM 10:32
PROVIDERS: ATTEND Internal Medicine Nephrology
DX: E87.1 Hypo-osmolality and hyponatremia (principal)

== ENCOUNTER → 2018-02-01 | Outpatient (CLI) | payer BC ==
[2018-02-01 13:01] LABS: ALBUMIN 3.8 gm/dl (3.4-5.0); BLOOD UREA NITROGEN 26 mg/dl (7-18); CALCIUM 9.4 mg/dl (8.5-10.1); CARBON DIOXIDE 27 mmol/L (21-32); CREATININE 1.51 mg/dl (0.60-1.20); GLUCOSE 103 mg/dl (70-99); PHOSPHORUS 3.5 mg/dl (2.5-4.9); POTASSIUM 3.8 mmol/L (3.5-5.1); SODIUM 130 mmol/L (136-145)
== END | disposition home or self-care (01) ==
LOC: C.LAB1850 10:43
PROVIDERS: ATTEND Internal Medicine Nephrology
DX: E87.1 Hypo-osmolality and hyponatremia (principal)

== ENCOUNTER → 2018-02-17 | Outpatient (CLI) | payer BC ==
[2018-02-17 10:53] LABS: ALBUMIN 3.8 gm/dl (3.4-5.0); BLOOD UREA NITROGEN 18 mg/dl (7-18); CALCIUM 9.6 mg/dl (8.5-10.1); CARBON DIOXIDE 26 mmol/L (21-32); CREATININE 1.21 mg/dl (0.60-1.20); GLUCOSE 104 mg/dl (70-99); PHOSPHORUS 2.7 mg/dl (2.5-4.9); POTASSIUM 3.3 mmol/L (3.5-5.1); SODIUM 132 mmol/L (136-145)
== END | disposition home or self-care (01) ==
LOC: C.LAB1850 10:01
PROVIDERS: ATTEND Internal Medicine Nephrology
DX: E87.1 Hypo-osmolality and hyponatremia (principal)

== ENCOUNTER 2019-06-05 08:00 | Inpatient (IN) ==
[2019-06-05] MEDS ORDERED: ONDANSETRON INJ 2 MG/ML 2 ML VIAL IV STA ×2 (08:14→10:14)
[2019-06-05] MEDS ORDERED: SODIUM CHLORIDE 0.9% 500 ML IV SCH (08:15)
[2019-06-05 08:49] LABS: Basophils # (auto) 0.03 K/uL (0-0.2); Basophils % (auto) 0.3 %; Eosinophils # (auto) 0.16 K/uL (0-0.5); Eosinophils % (auto) 1.5 %; Hematocrit (blood only) 35.3 % (37-47); Hemoglobin 11.9 g/dL (12.0-16.0); Immature Granulocytes # (auto) 0.04 K/uL (0.00-0.02); Immature Granulocytes % (auto) 0.4 %; Lymphocytes # (auto) 1.69 K/uL (1.2-3.4); Mean Corpuscular Hgb Conc 33.7 g/dL (32-36); Mean Corpuscular Volume 93.1 fL (80-100); Mean Platelet Volume 9.5 fL (7.4-10.4); Monocytes # (auto) 0.96 K/uL (0.11-0.59); Monocytes % (auto) 9.1 %; Neutrophils # (auto) 7.69 K/uL (1.4-6.5); Neutrophils % (auto) 72.7 %; Platelet Count 302 K/uL (130-400); RDW Coefficient of Variation 13.6 % (11.5-14.5); RDW Standard Deviation 46.6 fL (36.4-46.3); Red Blood Count 3.79 M/uL (4.2-5.4); White Blood Count 10.57 K/uL (4.8-10.8)
--- NOTE | 2019-06-05 08:52 | XRay Report ---
XR chest 1V portable HISTORY: Epigastric pain. COMPARISON: Chest 09/12/2017. FINDINGS: The heart is normal in size. No pleural effusions. No pneumothorax. The left lung is clear. Small focal density at the right lung base is likely due to the overlapping ribs. Otherwise, the rig ht lung is clear. Focal defect within the humeral head with associated fragmentation. This may be due to old trauma. IMPRESSION: 1. Small focal density within the right lung base is likely due to the overlapping ribs. However, fol low-up PA and lateral views of the chest with shallow oblique views are recommended to exclude the po ssibility of a pulmonary abnormality. 2. Focal defect within the humeral head with associated fragmentation. This is likely due to old trau ma. Electronically signed by: Robbin Ortiz M.D. 06/05/2019 8:51 AM
[2019-06-05 09:04] LABS: Alanine Aminotransferase 29 U/L (12-78); Albumin Level 3.8 gm/dl (3.4-5.0); Aspartate Aminotransferase 25 U/L (15-37); BUN Creatinine Ratio 14.8 (10-20); Blood Urea Nitrogen 21 mg/dl (7-18); Carbon Dioxide 26 mmol/L (21-32); Chloride 101 mmol/L (98-107); Creatinine Clr Calc Pharmacy 27.7 ml/min; Est GFR (African American) 42.3; Est GFR (Non-African American) 36.5; Glucose 85 mg/dl (70-99); Potassium 3.7 mmol/L (3.5-5.1); Sodium 135 mmol/L (136-145)
[2019-06-05] MEDS ORDERED: SODIUM CHLORIDE 0.9% 1000ML 500 ML IV ONE (09:07)
[2019-06-05 09:09] LABS: Albumin Globulin Ratio 1.2 (0.9-2); Alkaline Phosphatase 92 U/L (45-117); Bilirubin,Total 0.8 mg/dl (0.2-1); Globulin 3.2 gm/dl (2.5-4.0); Troponin I < 0.015 ng/ml (0-0.045)
--- NOTE | 2019-06-05 09:54 | Ultrasound Report ---
ULTRASOUND RIGHT UPPER QUADRANT ABDOMEN CLINICAL HISTORY: Right upper quadrant abdominal pain. COMPARISON STUDY: Abdominal ultrasound dated 01/01/2018. Abdominal CT dated 09/11/2017. TECHNIQUE: Real-time, grayscale, and color flow sonography of the right upper quadrant of the abdomen was performed. Images are reviewed in the transverse and longitudinal planes. FINDINGS: Liver: The liver is normal in size and heterogeneous and echotexture. There is mild intrahepatic bili guille ductal dilatation. Pneumobilia is noted. The main portal vein is patent. Gallbladder: The gallbladder is surgically absent. The common bile duct measures up to 1.0 cm in diam eter. Gas is noted within the common bile duct. Pancreas: Visualized portions of the pancreatic head and body are normal in appearance. The splenic v ein is patent. Right kidney: Survey images of the right kidney demonstrate normal size and echotexture. There is no hydronephrosis. Ascites: None. IMPRESSION: 1. The gallbladder is surgically absent. 2. Mild intra and extrahepatic biliary ductal dilatation are similar to previous. Pneumobilia is unch anged. Electronically signed by: Palmer Herring M.D. 06/05/2019 9:52 AM
--- NOTE | 2019-06-05 11:15 | Gastrointestinal Consultation ---
Date of Consultation June 05, 2019 Assessment & Plan (1) RUQ abdominal pain: RUQ pain with the hx of similar pain with choledocholithiasis is suggestive of this. Clear liquids po today. IV fluids. Antiemetics, analgesics prn. Will plan for EUS with ERCP tomorrow if indicated, by Dr. Doll in the OR. Present on Admission?: Yes Supervising Physician Co-Signing Physician Notes I saw and evaluated the patient. She has a history of choledocholithiasis and is undergone a number of ERCPs in the past 2 years. We did start her on ursodiol last year. She presented with abdominal discomfort which she wonders if her may be related to recurrent gallstones. Physical examination Pale appearing, otherwise without obvious distress Mild epigastric tenderness Impression: She with a history of recurrent choledocholithiasis. Given the patient's history perhaps we are best off pursuing upper endoscopy with endoscopic ultrasound to evaluate for recurrent gallstone disease. If positive we could then received with ERCP for gallstone extraction. Plan Upper endoscopy with endoscopic ultrasound on ERCP if endoscopic ultrasound positive for choledocholithiasis History of Present Illness Reason for Consultation: Abdominal pain Requesting Physician: Dr. Reeves Attending Physician: [facility] hospitalists History of Present Illness Ms. Angelika Herrera is a 73 yr old female pt of Dr. Schroeder with a hx of HTN, Rh arthritis, steroid induced DM, asthma and prior ERCPs for bile stones and sludge most recently in Dec 2017. Last evening, she experienced the sudden onset or epigastric "discomfort," that radiated around to the upper/mid back and was accompanied by nausea, vomiting and diarrhea. 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 On awakening, she had nausea but the discomfort and diarrhea had resolved. She presented to the ED because she recognized these symptoms are similar to previous episodes of choledocholithiasis. She denies fevers, chills, sweats, jaundice, CP or SOB. On arrival, LFTs and lipase normal. US with chronic, mild intra and extrahepatic bile duct dilation. She is hemodynamically stable and appears comfortable but is moderately tender on palpation of the epigastric area and the RUQ. Allergies Allergy/AdvReac Type Severity Reaction Status Date / Time gabapentin Allergy Mild DELIRIUM Verified 06/05/19 09:05 amoxicillin Allergy Unknown SEVERE Verified 06/05/19 09:05 RHEUMATOID ARTHRITIC SYMPTOMS clavulanic acid Allergy Unknown SEVERE Verified 06/05/19 09:05 RHEUMATOID ARTHRITIC SYMPTOMS Gold Salts Allergy Unknown RIDAURA Verified 06/05/19 09:05 (AURANOFIN) Sulfa (Sulfonamide AdvReac Unknown "give me Verified 06/05/19 09:05 Antibiotics) anxiety" Remicade Allergy Unknown Unknown Uncoded 06/05/19 09:05 Ridaura CAPS Allergy Unknown Unknown Uncoded 06/05/19 09:05 Home Medications Home Medications Medication Instructions Recorded Confirmed Type albuterol sulfate HFA 90 2 puffs INH Q4H PRN gm 02/15/19 06/05/19 History mcg/actuation aerosol inhaler ascorbate calcium (vitamin C) 500 500 mg PO QAM 02/15/19 06/05/19 History mg tablet atenolol 25 mg tablet 25 mg PO QAM 02/15/19 06/05/19 History cyanocobalamin (vitamin B-12) 1,000 mcg PO QAM 02/15/19 06/05/19 History 1,000 mcg capsule fluticasone 500 mcg-salmeterol 50 1 inha INH BID 02/15/19 06/05/19 History mcg/dose blistr powdr for inhalation levalbuterol 0.63 mg/3 mL solution 0.63 mg INH QID PRN ml 02/15/19 06/05/19 History for nebulization methylprednisolone 4 mg tablet 4 mg PO QAM 02/15/19 06/05/19 History spironolactone 25 mg tablet 25 mg PO DAILY 02/15/19 06/05/19 History ursodiol 300 mg capsule 300 mg PO BID 02/15/19 06/05/19 History tramadol 50 mg tablet 50 mg PO Q8H PRN #90 tab 04/18/19 06/05/19 Rx biotin 5,000 mcg sublingual tablet 5,000 mcg SL QAM 05/29/19 06/05/19 History cholestyramine-aspartame 4 gram 4 gm PO .COMPLEX PRN ea 05/29/19 06/05/19 History oral powder for susp in a packet diclofenac 1 % topical gel 2 gm TOP .COMPLEX PRN 05/29/19 06/05/19 History dicyclomine 10 mg capsule 10 mg PO TID 05/29/19 06/05/19 History gentamicin sulfate (PF) 60 mg/6 mL 60 mg INHALATION .COMPLEX PRN ml 05/29/19 06/05/19 History intravenous solution hydroxychloroquine 200 mg tablet 300 mg PO QAM tab 05/29/19 06/05/19 History sodium chloride 1 gram tablet 1,000 mg PO BID tab 05/29/19 06/05/19 History levothyroxine 100 mcg PO QAM 06/05/19 06/05/19 History Patient History Medical History Steroid dependent (Chronic) RUQ abdominal pain (Acute) Vomiting (Acute) Acid reflux disease (Acute) Diabetes mellitus (Acute) Disc degeneration, lumbar (Acute) Hypothyroidism (Acute) Sjogrens syndrome (Acute) Hyperthyroidism (Chronic) Rheumatoid arthritis (Chronic) Steroid-induced diabetes mellitus (Chronic) Hypertension (Chronic) Asthma (Chronic) Surgical History History of ERCP (Chronic) History of cholecystectomy (Chronic) Social History Feels Safe at Home: Yes Smoking Status: Never smoker Review of Systems Constitutional: + fatigue (from no sleep); no fever, no chills, no body aches and no weakness Eyes: + decreased night vision; no dry eyes, no eye pain and no itchy eyes Ear, Nose, Mouth, Throat: no ear pain, no ear discharge, no tinnitus and no dizziness Respiratory: no cough, no chest congestion and no dyspnea Cardiovascular: no chest pain and no dyspnea Gastrointestinal: as per Subjective / HPI Genitourinary: no dysuria and no difficulty urinating Musculoskeletal: + joint pain (chronic with RhA) Integumentary: no rash and no lesions no jaundice or icterus Neurologic: no gait abnormality, no unsteadiness and no falls Psychiatric: no confusion Endocrine: no polydipsia, no polyphagia and no polyuria Hematologic / Lymphatic: no easy bleeding, no easy bruising and no coagulopathy Physical Exam Constitutional: WD/WN, vitals as above Eyes: PERRL, conjunctivae normal, anicteric sclerae ENMT: external ear and nose normal, oropharynx normal Neck: trachea midline, no thyromegaly Respiratory: normal respiratory effort, lungs clear to auscultation Cardiovascular: Rate/Rhythm: regular rate and regular rhythm 2/6 systolic murmur Gastrointestinal (Abdomen): Percussion/Palpation: + abdomen tender (epigastric and RUQ) and abdomen soft; no hepatosplenomegaly and no ascites Skin: no rashes, warm and dry Neurologic: PERRL, EOMI, accommodation nl, no face palsy, no dysarthria Psychiatric: A+Ox3, euthymic affect Lymphatic: no cervical or axillary lymphadenopathy Results & Data Vital Signs (Past 12 Hours) Vital Signs Temp Pulse Pulse Resp BP BP Pulse Ox 06/05/19 11:00 73 19 147/74 H 100 06/05/19 10:19 67 16 134/62 98 06/05/19 09:18 67 18 134/98 98 06/05/19 08:37 98 06/05/19 08:05 36.7 C 80 16 141/80 H 98 Laboratory Results WBC 10, Hb 11, Hct 35, Platelets 302, BUN 21, Cr 1.43, T bili 0.8, AST 25, ALT 29, Alk Phos 92, Lipase 203. Diagnostic Findings RUQ US 06/05/19: 1. The gallbladder is surgically absent. 2. Mild intra and extrahepatic biliary ductal dilatation are similar to previous. Pneumobilia is unchanged.
--- NOTE | 2019-06-05 11:36 | History & Physical Report ---
Date of Service June 05, 2019 Assessment & Plan (1) RUQ abdominal pain: Possible recurrent choledocholithiasis. Consult GI service who has seen her previously. Obtain MRCP. Parenteral narcotics as needed Present on Admission?: Yes (2) Vomiting: Parenteral antiemetics. Clear liquid diet for now. Advance as tolerated Present on Admission?: Yes (3) Chronic kidney disease (CKD), stage III (moderate): Monitor intake and output. Serial lab studies Present on Admission?: Yes (4) Steroid dependent: Continue Medrol 4 mg daily. Switch to intravenous hydrocortisone if she is unable to take her oral medications Present on Admission?: Yes (5) Rheumatoid arthritis: Treated with Medrol and hydroxychloroquine Present on Admission?: Yes (6) Hypertension: Treated with atenolol Present on Admission?: Yes (7) Asthma: Stable. Continue inhaler therapy (8) DVT prophylaxis: Lovenox subcu History of Present Illness Chief Complaint: Nausea, upper abdominal pain, vomiting Primary Care Provider: Chad Wilder MD 73-year-old female with a history of choledocholithiasis requiring ERCP with sphincterotomy in the past. Last evening she developed nausea and vomiting accompanied by epigastric and right upper quadrant discomfort. She came to the ED today for evaluation. She describes the discomfort as constant and dull. She has no hematemesis, melena, hematochezia. No fever or chills . Gallbladder ultrasound reveals previous cholecystectomy with unchanged mildly dilated biliary ducts and pneumobilia from previous procedure. There is a high suspicion of recurrent choledocholithiasis however. Gastroenterology will be consulted and MRCP obtained. Portal chest x-ray suggests the possible presence of a right pulmonary nodule. Chest x-ray PA and left lateral will be obtained. If abnormal, chest CT scan can be completed. She is admitted for further evaluation and treatment. Allergies Allergy/AdvReac Type Severity Reaction Status Date / Time gabapentin Allergy Mild DELIRIUM Verified 06/05/19 09:05 amoxicillin Allergy Unknown SEVERE Verified 06/05/19 09:05 RHEUMATOID ARTHRITIC SYMPTOMS clavulanic acid Allergy Unknown SEVERE Verified 06/05/19 09:05 RHEUMATOID ARTHRITIC SYMPTOMS Gold Salts Allergy Unknown RIDAURA Verified 06/05/19 09:05 (AURANOFIN) Sulfa (Sulfonamide AdvReac Unknown "give me Verified 06/05/19 09:05 Antibiotics) anxiety" Remicade Allergy Unknown Unknown Uncoded 06/05/19 09:05 Ridaura CAPS Allergy Unknown Unknown Uncoded 06/05/19 09:05 Home Medications Home Medications Medication Instructions Recorded Confirmed Type albuterol sulfate HFA 90 2 puffs INH Q4H PRN gm 02/15/19 06/05/19 History mcg/actuation aerosol inhaler ascorbate calcium (vitamin C) 500 500 mg PO QAM 02/15/19 06/05/19 History mg tablet atenolol 25 mg tablet 25 mg PO QAM 02/15/19 06/05/19 History cyanocobalamin (vitamin B-12) 1,000 mcg PO QAM 02/15/19 06/05/19 History 1,000 mcg capsule fluticasone 500 mcg-salmeterol 50 1 inha INH BID 02/15/19 06/05/19 History mcg/dose blistr powdr for inhalation levalbuterol 0.63 mg/3 mL solution 0.63 mg INH QID PRN ml 02/15/19 06/05/19 History for nebulization methylprednisolone 4 mg tablet 4 mg PO QAM 02/15/19 06/05/19 History spironolactone 25 mg tablet 25 mg PO DAILY 02/15/19 06/05/19 History ursodiol 300 mg capsule 300 mg PO BID 02/15/19 06/05/19 History tramadol 50 mg tablet 50 mg PO Q8H PRN #90 tab 04/18/19 06/05/19 Rx biotin 5,000 mcg sublingual tablet 5,000 mcg SL QAM 05/29/19 06/05/19 History cholestyramine-aspartame 4 gram 4 gm PO .COMPLEX PRN ea 05/29/19 06/05/19 History oral powder for susp in a packet diclofenac 1 % topical gel 2 gm TOP .COMPLEX PRN 05/29/19 06/05/19 History dicyclomine 10 mg capsule 10 mg PO TID 05/29/19 06/05/19 History gentamicin sulfate (PF) 60 mg/6 mL 60 mg INHALATION .COMPLEX PRN ml 05/29/19 06/05/19 History intravenous solution hydroxychloroquine 200 mg tablet 300 mg PO QAM tab 05/29/19 06/05/19 History sodium chloride 1 gram tablet 1,000 mg PO BID tab 05/29/19 06/05/19 History levothyroxine 100 mcg PO QAM 06/05/19 06/05/19 History Past Med/Surg History Medical History Steroid dependent (Chronic) RUQ abdominal pain (Acute) Vomiting (Acute) Acid reflux disease (Acute) Diabetes mellitus (Acute) Disc degeneration, lumbar (Acute) Hypothyroidism (Acute) Sjogrens syndrome (Acute) Hyperthyroidism (Chronic) Rheumatoid arthritis (Chronic) Steroid-induced diabetes mellitus (Chronic) Hypertension (Chronic) Asthma (Chronic) Surgical History History of ERCP (Chronic) History of cholecystectomy (Chronic) Social History Feels Safe at Home: Yes Smoking Status: Never smoker Review of Systems Review of Systems: Constitutional-no fever or chills ENT-no blurred vision, no double vision, no epistaxis, no sore throat Respiratory-no cough, no wheezing, no shortness of breath Cardiac-no palpitations, no chest pain, no syncope GI-no diarrhea, melena, hematochezia. Nausea and vomiting started last evening with epigastric and right upper quadrant discomfort -no urinary retention, no urinary incontinence, no dysuria, no hematuria Musculoskeletal-no joint pain, no muscle tenderness Skin-no bruising, no rashes, no pruritus Neuro-no isolated weakness, no paresthesia, no weakness Psych-no depression, no anxiety Physical Exam Physical Exam: General-alert and oriented x3, no fevers, no chills HEENT-head atraumatic and normocephalic, TMs intact bilaterally, pupils equal and reactive to light, extraocular muscles intact Neck-no lymphadenopathy or thyromegaly, trachea midline Chest-clear to auscultation percussion. No rales wheezing or rhonchi Cardiac-regular rate and rhythm, normal S1 and S2, no murmurs Abdomen-nondistended. Normal bowel sounds. Mild epigastric and right upper quadrant discomfort to palpation. No masses. No rebound or guarding Extremities-no cyanosis, clubbing, or edema Neuro-cranial nerves II through XII intact, motor and sensory function within normal limits, strength symmetrical 5/5, no focal deficits Psych-normal affect, normal mood Results & Data Vital Signs (Past 12 Hours) Vital Signs Temp Pulse Pulse Resp BP BP Pulse Ox 06/05/19 11:00 73 19 147/74 H 100 06/05/19 10:19 67 16 134/62 98 06/05/19 09:18 67 18 134/98 98 06/05/19 08:37 98 06/05/19 08:05 36.7 C 80 16 141/80 H 98 Laboratory Results 06/05/19 08:34 06/05/19 08:34 PG Care Time/CCT Total # of Minutes Spent Total Time Spent with Patient: Total time spent is greater than 50% in coordination of care (as documented) at patient's floor/unit and/or counseling patient: (1) Vomiting Vomiting type: unspecified
--- NOTE | 2019-06-05 12:49 | Emergency Department Note ---
Entered by Daina Sarmiento acting as a scribe for Palmer Reeves MD History of Present Illness General Chief complaint: Illness Stated complaint: BILE DUCT/LIVER PROBLEMS Time Seen by Provider: 06/05/19 08:09 Source: patient History of Present Illness Provider complaint: vomiting Onset (ago): hour(s) (11) Radiation: back and other (breast) Severity: similar to prior episodes (of biliary stones) Pain Consistency: + other (episode) Maximum Pain Intensity: 9 Quality: + other (vomiting) Associated symptoms: + denies other symptoms (diarrhea), + nausea/vomiting and + other (spitting up yellow substance, loss of sleep); no chest pain, no fever/chills and no shortness of breath The patient is a 73 year old female who presents to the ED with complaints of an episode of vomiting that started 11 hours ago. The patient states that she is no longer vomiting, but is spitting up a yellow substance. The patient notes that she has a history of biliary stones and a cholecystectomy. The patient notes that she had a biliary stent at one time, but it has been removed. The patient states that she was put on Ursodiol, which has helped up until last night when this episode began. The patient states that this episode feels similar to prior episodes of biliary stones. The patient notes that the pain starts in her abdomen and radiates up to her breast and around to her back. The patient rates this discomfort at a maximum of 9/10 which occurred last night around 2044. The patient states that the pain has gotten much better since, but she is now experiencing nausea. The patient states that she did not sleep much last night due to the vomiting and nausea. The patient denies shortness of breath, chest pain, fever and diarrhea. Home Medications Home Medications Medication Instructions Recorded Confirmed Type albuterol sulfate HFA 90 2 puffs INH Q4H PRN gm 02/15/19 06/05/19 History mcg/actuation aerosol inhaler ascorbate calcium (vitamin C) 500 500 mg PO QAM 02/15/19 06/05/19 History mg tablet atenolol 25 mg tablet 25 mg PO QAM 02/15/19 06/05/19 History cyanocobalamin (vitamin B-12) 1,000 mcg PO QAM 02/15/19 06/05/19 History 1,000 mcg capsule fluticasone 500 mcg-salmeterol 50 1 inha INH BID 02/15/19 06/05/19 History mcg/dose blistr powdr for inhalation levalbuterol 0.63 mg/3 mL solution 0.63 mg INH QID PRN ml 02/15/19 06/05/19 History for nebulization methylprednisolone 4 mg tablet 4 mg PO QAM 02/15/19 06/05/19 History spironolactone 25 mg tablet 25 mg PO DAILY 02/15/19 06/05/19 History ursodiol 300 mg capsule 300 mg PO BID 02/15/19 06/05/19 History tramadol 50 mg tablet 50 mg PO Q8H PRN #90 tab 04/18/19 06/05/19 Rx biotin 5,000 mcg sublingual tablet 5,000 mcg SL QAM 05/29/19 06/05/19 History cholestyramine-aspartame 4 gram 4 gm PO .COMPLEX PRN ea 05/29/19 06/05/19 History oral powder for susp in a packet diclofenac 1 % topical gel 2 gm TOP .COMPLEX PRN 05/29/19 06/05/19 History dicyclomine 10 mg capsule 10 mg PO TID 05/29/19 06/05/19 History gentamicin sulfate (PF) 60 mg/6 mL 60 mg INHALATION .COMPLEX PRN ml 05/29/19 06/05/19 History intravenous solution hydroxychloroquine 200 mg tablet 300 mg PO QAM tab 05/29/19 06/05/19 History sodium chloride 1 gram tablet 1,000 mg PO BID tab 05/29/19 06/05/19 History levothyroxine 100 mcg PO QAM 06/05/19 06/05/19 History Allergies Allergy/AdvReac Type Severity Reaction Status Date / Time gabapentin Allergy Mild DELIRIUM Verified 06/05/19 09:05 amoxicillin Allergy Unknown SEVERE Verified 06/05/19 09:05 RHEUMATOID ARTHRITIC SYMPTOMS clavulanic acid Allergy Unknown SEVERE Verified 06/05/19 09:05 RHEUMATOID ARTHRITIC SYMPTOMS Gold Salts Allergy Unknown RIDAURA Verified 06/05/19 09:05 (AURANOFIN) Sulfa (Sulfonamide AdvReac Unknown "give me Verified 06/05/19 09:05 Antibiotics) anxiety" Remicade Allergy Unknown Unknown Uncoded 06/05/19 09:05 Ridaura CAPS Allergy Unknown Unknown Uncoded 06/05/19 09:05 Past Med/Surg History Medical History Steroid dependent (Chronic) RUQ abdominal pain (Acute) Vomiting (Acute) Acid reflux disease (Acute) Diabetes mellitus (Acute) Disc degeneration, lumbar (Acute) Hypothyroidism (Acute) Sjogrens syndrome (Acute) Hyperthyroidism (Chronic) Rheumatoid arthritis (Chronic) Steroid-induced diabetes mellitus (Chronic) Hypertension (Chronic) Asthma (Chronic) Surgical History History of ERCP (Chronic) History of cholecystectomy (Chronic) Social History Preferred Language: Bengali Communication Ability: Effective Beliefs That Will Affect Care: None Current Living Situation: Spouse Feels Safe at Home: Yes Smoking Status: Never smoker Hx Alcohol Use: No Hx Substance Use: No Review of Systems See HPI for pertinent positives & negatives. and A total of 10 systems reviewed and were otherwise negative Physical Exam Vital Signs Vital Signs - 24 hr 06/05/19 08:05 06/05/19 08:37 06/05/19 09:18 Temperature 36.7 C Temperature Source Oral Sepsis Recent Fever Within 48 Hours No Sepsis New/Unexplained Change in Mental Status No Sepsis Action Taken by Nursing No Action Required Pulse Rate 80 Pulse Rate [Left Finger] 67 Pulse Rate from SpO2 Sensor Respiratory Rate 16 18 Blood Pressure 141/80 H Blood Pressure [Left Arm] 134/98 Blood Pressure Mean 100 Blood Pressure Mean [Left Arm] 110 Pulse Oximetry 98 98 98 Oxygen Delivery Method Room Air Room Air Room Air 06/05/19 10:19 06/05/19 11:00 Temperature Temperature Source Sepsis Recent Fever Within 48 Hours Sepsis New/Unexplained Change in Mental Status Sepsis Action Taken by Nursing Pulse Rate 73 Pulse Rate [Left Finger] 67 Pulse Rate from SpO2 Sensor 73 Respiratory Rate 16 19 Blood Pressure 147/74 H Blood Pressure [Left Arm] 134/62 Blood Pressure Mean 98 Blood Pressure Mean [Left Arm] 86 Pulse Oximetry 98 100 Oxygen Delivery Method Room Air Room Air GENERAL: Patient is in no acute distress. HEENT: No acute trauma, normocephalic atraumatic, mucous membranes moist, no n rebecca congestion, no scleral icterus. NECK: No stridor, no adenopathy, no meningismus, trachea is midline. LUNGS: Clear to auscultation bilaterally, no wheeze, no rhonchi, breath sounds equal. HEART: Without murmurs gallops or rubs, regular rate and rhythm. ABDOMEN: No discomfort with palpation of epigastrium or RUQ. Soft, nontender, bowel sounds positive, no hernias, no peritonitis. EXTREMITIES: No cyanosis or edema, full range of motion of all the joints without pain or difficulty, no signs for acute trauma. NEUROLOGIC: Oriented x 3, no acute motor or sensory deficits, no focal weakness. SKIN: No rash, no jaundice, no diaphoresis. Course 0811: Past medical records reviewed. The patient was evaluated in room A4. A complete history and physical exam was performed. 1010: I discussed the patient's case with SUPA uDran. She will have Dr. Kaylan ZAMORA review patient's US and give me a call back. 1012: I reevaluated the patient and she is still nausea, but not in pain. Awaiting to hear from GI. 1045: Dr. Kaylan ZAMORA recommends the patient to stay for further evaluation. 1058: I discussed the patient's case with Dr. Mortensen [facility] Hospitalist. He will evaluate the patient for further management. 1102: I updated the patient on the plan and she verbally agrees and understands. Consultations Consultation #1: I discussed the patient's case with SUPA Duran. She will have Dr. Kaylan ZAMORA review patient's US and give me a call back. Time: 10:10 Consultation #2: I discussed the patient's case with Dr. Mortenesn [facility] Hospitalist. He will evaluate the patient for further management. Time: 10:58 Administered Medications Discontinued Medications Sodium Chloride (Nss) 500 mls @ 999 mls/hr IV .Q31M TYREE Stop: 06/05/19 08:45 Last Infusion: 06/05/19 09:15 Dose: 0 mls/hr Documented by: [id number] Admin: 06/05/19 08:41 Dose: 999 mls/hr Documented by: [id number] Sodium Chloride (Nss 1000ml) 500 mls @ 999 mls/hr IV .Q31M ONE Stop: 06/05/19 09:37 Last Infusion: 06/05/19 09:58 Dose: 0 mls/hr Documented by: [id number] Admin: 06/05/19 09:18 Dose: 999 mls/hr Documented by: [id number] Ondansetron HCl (Zofran) 4 mg IV NOW STA Stop: 06/05/19 08:15 Last Admin: 06/05/19 08:41 Dose: 4 mg Documented by: [id number] Ondansetron HCl (Zofran) 4 mg IV NOW STA Stop: 06/05/19 10:15 Last Admin: 06/05/19 10:18 Dose: 4 mg Documented by: [id number] Medical Decision Making Differential Diagnosis Differentials include primary biliary stone, biliary colic, pancreatitis, dehydration, electrolyte imbalance, ID or angina, reflux. Medical Records Attestation: I reviewed the patient's medical records. Home Medications Current Medication List: was personally reviewed by me Laboratory Data Attestation: I reviewed the patient's lab results. Result diagrams: 06/05/19 08:34 06/05/19 08:34 Lab Results 06/05/19 06/05/19 Range/Units 08:34 08:34 WBC 10.57 (4.8-10.8) K/uL RBC 3.79 L (4.2-5.4) M/uL Hgb 11.9 L (12.0-16.0) g/dL Hct 35.3 L (37-47) % MCV 93.1 (80-100) fL MCH 31.4 (25-34) pg MCHC 33.7 (32-36) g/dL RDW Std Deviation 46.6 H (36.4-46.3) fL RDW Coeff of Sue 13.6 (11.5-14.5) % Plt Count 302 (130-400) K/uL MPV 9.5 (7.4-10.4) fL Immature Gran % (Auto) 0.4 % Neut % (Auto) 72.7 % Lymph % (Auto) 16.0 % [place] % (Auto) 9.1 % Eos % (Auto) 1.5 % Baso % (Auto) 0.3 % Immature Gran # (Auto) 0.04 H (0.00-0.02) K/uL Neut # (Auto) 7.69 H (1.4-6.5) K/uL Lymph # (Auto) 1.69 (1.2-3.4) K/uL [place] # (Auto) 0.96 H (0.11-0.59) K/uL Eos # (Auto) 0.16 (0-0.5) K/uL Baso # (Auto) 0.03 (0-0.2) K/uL Sodium 135 L (136-145) mmol/L Potassium 3.7 (3.5-5.1) mmol/L Chloride 101 (98-107) mmol/L Carbon Dioxide 26 (21-32) mmol/L Anion Gap 8.0 (3-11) BUN 21 H (7-18) mg/dl Creatinine 1.43 H (0.6-1.2) mg/dl Est Cr Clr Drug Dosing 27.7 ml/min Est GFR ( Amer) 42.3 Est GFR (Non-Af Amer) 36.5 BUN/Creatinine Ratio 14.8 (10-20) Glucose 85 (70-99) mg/dl Calcium 9.0 (8.5-10.1) mg/dl Total Bilirubin 0.8 (0.2-1) mg/dl AST 25 (15-37) U/L ALT 29 (12-78) U/L Alkaline Phosphatase 92 (45-117) U/L Troponin I < 0.015 (0-0.045) ng/ml Total Protein 7.0 (6.4-8.2) gm/dl Albumin 3.8 (3.4-5.0) gm/dl Globulin 3.2 (2.5-4.0) gm/dl Albumin/Globulin Ratio 1.2 (0.9-2) Lipase 203 (73-393) U/L Imaging Data Radiologist's Impression: Radiology results as stated below per my review and the radiologist's interpretation: XR chest 1V portable HISTORY: Epigastric pain. COMPARISON: Chest 09/12/2017. FINDINGS: The heart is normal in size. No pleural effusions. No pneumothorax. The left lung is clear. Small focal density at the right lung base is likely due to the overlapping ribs. Otherwise, the right lung is clear. Focal defect within the humeral head with associated fragmentation. This may be due to old trauma. IMPRESSION: 1. Small focal density within the right lung base is likely due to the overlapping ribs. However, follow-up PA and lateral views of the chest with shallow oblique views are recommended to exclude the possibility of a pulmonary abnormality. 2. Focal defect within the humeral head with associated fragmentation. This is likely due to old trauma. Electronically signed by: Robbin Ortiz M.D. 06/05/2019 8:51 AM ULTRASOUND RIGHT UPPER QUADRANT ABDOMEN CLINICAL HISTORY: Right upper quadrant abdominal pain. COMPARISON STUDY: Abdominal ultrasound dated 01/01/2018. Abdominal CT dated 09/11/2017. TECHNIQUE: Real-time, grayscale, and color flow sonography of the right upper quadrant of the abdomen was performed. Images are reviewed in the transverse and longitudinal planes. FINDINGS: Liver: The liver is normal in size and heterogeneous and echotexture. There is mild intrahepatic biliary ductal dilatation. Pneumobilia is noted. The main portal vein is patent. Gallbladder: The gallbladder is surgically absent. The common bile duct measures up to 1.0 cm in diameter. Gas is noted within the common bile duct. Pancreas: Visualized portions of the pancreatic head and body are normal in appearance. The splenic vein is patent. Right kidney: Survey images of the right kidney demonstrate normal size and echotexture. There is no hydronephrosis. Ascites: None. IMPRESSION: 1. The gallbladder is surgically absent. 2. Mild intra and extrahepatic biliary ductal dilatation are similar to previous. Pneumobilia is unchanged. Electronically signed by: Palmer Herring M.D. 06/05/2019 9:52 AM ECG Data Attestation: I personally reviewed and interpreted this ECG as follows: Indication: other (epigastric pain) Rate (beats per minute): 72 Rhythm: normal sinus Findings: + nonspecific-ST abn; no ST elevation Blood Pressure Blood Pressure Findings: Elevated blood pressure Blood Pressure Disposition: further management by hospitalist [facility] Narrative There is no leukocytosis or concerning anemia. There is some renal insufficiency noted but this is baseline. No significant electrolyte abnormality requiring correction. No elevation to the liver enzymes. The patient does not have evidence for pancreatitis. EKG shows a sinus rhythm, no acute ischemia. Cardiac enzyme testing x1 is not consistent with acute cardiac injury. Chest x-ray does not show free air or pneumonia. Right upper quadrant ultrasound shows some mild biliary duct enlargement but the study seemed similar to previous studies. Patient received IV saline, she was given a second IV saline bolus. She received IV Zofran for nausea, a second dose of IV Zofran was required. I spoke to GI. They came and talked with the patient. They did an exam. Patient will be hospitalized for potential GI intervention in the near future. GI is concerned for a stone caught in her biliary duct. Patient is aware of all her findings, case management has been involved. The on-call hospitalist was consulted. Impression & Plan Abdominal discomfort, epigastric, Vomiting, Biliary stone Discharge Plan Visit Data *Final* Discharge Date/Time: 06/05/19 13:25 Chief Complaint: Illness Stated Complaint: BILE DUCT/LIVER PROBLEMS ED Provider: Palmer Reeves Discharge Problem: Abdominal discomfort, epigastric, Vomiting, Biliary stone Patient Disposition: Admitted As Inpatient Discharge Instructions Interventions: ED Discharge Assessment Last Done: 06/05/19 13:25 Discharge Problem: Vomiting Qualifiers: Vomiting type: unspecified Biliary stone Qualifiers: Cholangitis acuity: unspecified acuity The scribe's documentation has been prepared under my direction and personally reviewed by me in its entirety. I confirm that the note above accurately ref lects all work, treatment, procedures, and medical decision making performed by me.
[2019-06-05] MEDS ORDERED: LEVALBUTEROL HCL 0.63 MG/3 ML NEB INH PRN (13:54)
[2019-06-05] MEDS ORDERED: ACETAMINOPHEN 325 MG TAB PO PRN (13:54)
[2019-06-05] MEDS ORDERED: DICLOFENAC SOD 1% GEL 100 GM TUBE EXT PRN (13:54)
[2019-06-05] MEDS ORDERED: MoRPHine SULFATE 2 MG/ML CARP IV PRN (13:54)
[2019-06-05] MEDS ORDERED: ONDANSETRON INJ 2 MG/ML 2 ML VIAL IV PRN (13:54)
[2019-06-05] MEDS ORDERED: ALUMINUM/MAGNESIUM SUSP 30 ML UDC PO PRN (13:54)
[2019-06-05] MEDS ORDERED: DICYCLOMINE HCL 10 MG CAP PO PRN (14:00)
[2019-06-05] MEDS ORDERED: LORazepam 1 MG TAB PO STA (14:36)
[2019-06-05 15:40] LABS: Partial Thromboplastin Ratio 0.9
--- NOTE | 2019-06-05 15:43 | XRay Report ---
XR chest PA, lat, obliques (4 views) CLINICAL HISTORY: Possible right pulmonary nodule COMPARISON STUDY: Prior study performed the same day FINDINGS: Repeat views of the chest including oblique views were obtained. These confirm the presence of a right lower lung zone opacity. This is quite dense despite its small size, and is therefore sta tistically calcified. It likely relates to the right sixth costochondral junction. A six-month follow -up chest x-ray is recommended.[ IMPRESSION: Repeat views confirm the presence of a 12 mm right lower lung zone opacity. This finding is quite dense despite its small size and is therefore likely calcified. It likely relates to the rig ht sixth costochondral junction. A six-month follow-up chest x-ray would seem prudent. Electronically signed by: Jose Zimmerman M.D. 06/05/2019 3:42 PM
[2019-06-05] MEDS: SODIUM CHLORIDE 0.9% 1000ML 1,000 ML IV SCH (16:24)
--- NOTE | 2019-06-05 17:32 | Anesthesiology Consultation ---
Date of Service June 05, 2019 Assessment & Plan (1) Encounter for pre-operative examination: Chart Review Chart Review: Acceptable Risk for Surgery and Patient NOT seen in Pre Admission Testing Consults Requested none History Surgery Operation Date: 06/06/19 07:15 Proposed Procedures p Endoscopic Retrograde Cholangiopancreatogram with - Griffin hoskins Upper Endoscopic Ultrasonography - Griffin Doll Height/Weight Height: 5 ft 4 in Weight: 54.9 kg Allergies Allergy/AdvReac Type Severity Reaction Status Date / Time gabapentin Allergy Mild DELIRIUM Verified 06/05/19 09:05 amoxicillin Allergy Unknown SEVERE Verified 06/05/19 09:05 RHEUMATOID ARTHRITIC SYMPTOMS clavulanic acid Allergy Unknown SEVERE Verified 06/05/19 09:05 RHEUMATOID ARTHRITIC SYMPTOMS Gold Salts Allergy Unknown RIDAURA Verified 06/05/19 09:05 (AURANOFIN) Sulfa (Sulfonamide AdvReac Unknown "give me Verified 06/05/19 09:05 Antibiotics) anxiety" Remicade Allergy Unknown Unknown Uncoded 06/05/19 09:05 Ridaura CAPS Allergy Unknown Unknown Uncoded 06/05/19 09:05 Medications Home Medications Medication Instructions Recorded Confirmed Last Taken albuterol sulfate HFA 90 2 puffs INH Q4H PRN gm 02/15/19 06/05/19 Unknown mcg/actuation aerosol inhaler ascorbate calcium (vitamin C) 500 500 mg PO QAM 02/15/19 06/05/19 06/04/19 mg tablet atenolol 25 mg tablet 25 mg PO QAM 02/15/19 06/05/19 06/04/19 cyanocobalamin (vitamin B-12) 1,000 mcg PO QAM 02/15/19 06/05/19 06/04/19 1,000 mcg capsule fluticasone 500 mcg-salmeterol 50 1 inha INH BID 02/15/19 06/05/19 06/04/19 mcg/dose blistr powdr for inhalation levalbuterol 0.63 mg/3 mL solution 0.63 mg INH QID PRN ml 02/15/19 06/05/19 Unknown for nebulization methylprednisolone 4 mg tablet 4 mg PO QAM 02/15/19 06/05/19 06/04/19 spironolactone 25 mg tablet 25 mg PO DAILY 02/15/19 06/05/19 06/04/19 ursodiol 300 mg capsule 300 mg PO BID 02/15/19 06/05/19 06/04/19 tramadol 50 mg tablet 50 mg PO Q8H PRN #90 tab 04/18/19 06/05/19 Unknown biotin 5,000 mcg sublingual tablet 5,000 mcg SL QAM 05/29/19 06/05/19 06/04/19 cholestyramine-aspartame 4 gram 4 gm PO .COMPLEX PRN ea 05/29/19 06/05/19 Unknown oral powder for susp in a packet diclofenac 1 % topical gel 2 gm TOP .COMPLEX PRN 05/29/19 06/05/19 Unknown dicyclomine 10 mg capsule 10 mg PO TID 05/29/19 06/05/19 06/04/19 gentamicin sulfate (PF) 60 mg/6 mL 60 mg INHALATION .COMPLEX PRN ml 05/29/19 06/05/19 Unknown intravenous solution hydroxychloroquine 200 mg tablet 300 mg PO QAM tab 05/29/19 06/05/19 06/04/19 sodium chloride 1 gram tablet 1,000 mg PO BID tab 05/29/19 06/05/19 06/04/19 levothyroxine 100 mcg PO QAM 06/05/19 06/05/19 06/04/19 Active Medications Generic Name Dose Route Start Last Admin Trade Name Freq PRN Reason Stop Dose Admin Sodium Chloride 1,000 mls @ 80 mls/hr 06/05/19 15:00 06/05/19 16:24 Nss 1000ml IV 07/05/19 14:59 80 mls/hr .[id number] TYREE Administration Miscellaneous 1 ea 06/05/19 16:00 06/05/19 16:21 Order Awaiting Action N/A 07/05/19 15:59 Not Given QS TYREE Past Medical History Medical History Steroid dependent (Chronic) RUQ abdominal pain (Acute) Vomiting (Acute) Acid reflux disease (Acute) Diabetes mellitus (Acute) Disc degeneration, lumbar (Acute) Hypothyroidism (Acute) Sjogrens syndrome (Acute) Hyperthyroidism (Chronic) Rheumatoid arthritis (Chronic) Steroid-induced diabetes mellitus (Chronic) Hypertension (Chronic) Asthma (Chronic) Past Surgical History Surgical History History of ERCP (Chronic) History of cholecystectomy (Chronic) Social History Smoking Status: Never smoker Hx Alcohol Use: No Hx Substance Use: No Physical Exam Vital Signs Last Vital Signs Temp 36.9 C 06/05/19 16:16 Pulse 67 06/05/19 16:16 Resp 18 06/05/19 16:16 BP 145/76 H 06/05/19 16:16 Pulse Ox 95 06/05/19 16:16 Testing Laboratory Results 06/05/19 08:34 06/05/19 08:34 PT 10.0 Seconds (9.0-12.0) 06/05/19 08:34 INR 1.0 (0.9-1.1) 06/05/19 08:34 APTT 25.0 Seconds (21.0-31.0) 06/05/19 08:34 Electrocardiogram Date: 06/05/19 Findings: + NSR @ (72) and + NSST changes Chest X-Ray Date: 06/05/19 hy: Arnoldo Cortez MD Ordering Phy: Arnoldo Cortez MD cc: ~ XR chest PA, lat, obliques (4 views) CLINICAL HISTORY: Possible right pulmonary nodule COMPARISON STUDY: Prior study performed the same day FINDINGS: Repeat views of the chest including oblique views were obtained. These confirm the presence of a right lower lung zone opacity. This is quite dense despite its small size, and is therefore statistically calcified. It likely relates to the right sixth costochondral junction. A six-month follow-up chest x-ray is recommended.[ IMPRESSION: Repeat views confirm the presence of a 12 mm right lower lung zone opacity. This finding is quite dense despite its small size and is therefore likely calcified. It likely relates to the right sixth costochondral junction. A six-month follow-up chest x-ray would seem prudent. Electronically signed by: Jose Zimmerman M.D. 06/05/2019 3:42 PM Dictated: 06/05/19 1539 Transcribed: 06/05/19 1539
[2019-06-05] MEDS ORDERED: ENOXAPARIN INJ 30 MG/0.3 ML SYR SQ SCH (18:00)
[2019-06-05] MEDS ORDERED: LORazepam 1 MG TAB PO ONE (20:45)
[2019-06-05] MEDS: URSODIOL 300 MG CAP PO SCH (22:03)
[2019-06-05] MEDS: SODIUM CHLORIDE 1 GM TABLET PO SCH (22:03)
--- NOTE | 2019-06-05 22:03 | Magnetic Resonance Report ---
Study: MRCP HISTORY: Nausea. Pain. COMPARISON: 06/05/2019 FINDINGS: Lung bases are grossly clear. Signal characteristics of liver spleen and pancreas appear un remarkable. Kidneys negative for hydronephrosis. Trace amount of perinephric infiltrative change bila terally which is considered chronic in this patient and unchanged. Prior cholecystectomy. Motion artifact is present. Coronal images suggest the possibility of small fi lling defects of the mid to distal common bile duct combine with superimposed scarring of the biliary ductal system. Filling defects are best appreciated on image 87 of 128 in the coronal plane. No evid ence for biliary ductal distention is present.. There are moderate scarring-like changes of the compo nents of the hepatic as well as mid to distal common bile duct regions. This scarring appears to be s imilar compared to the prior exam. Bowel pattern is nonobstructive. IMPRESSION: 1. Prior cholecystectomy. 2. Limited evaluation of the common bile duct due to motion artifact, although coronal images suggest the possibility of several small filling defects suggestive of choledocholithiasis. 3. No biliary ductal distention. 4. Study is otherwise unremarkable. Electronically signed by: Russ Rudolph M.D. 06/05/2019 10:01 PM
[2019-06-05] MEDS: FLUTICASONE/SALMETEROL (ADVAIR) 500/50 INH 14 PUFF INH SCH (22:04)
[2019-06-06] MEDS: SODIUM CHLORIDE 0.9% 1000ML 1,000 ML IV SCH (04:14)
[2019-06-06] MEDS ORDERED: LIDOCAINE HCL 2% 2 ML VIAL/AMP(20MG/ML) INFIL ONE (06:29)
[2019-06-06] MEDS ORDERED: SUCCINYLCHOLINE CHLORIDE 20 MG/ML 10 ML VIAL ONE (06:29)
[2019-06-06] MEDS ORDERED: ONDANSETRON INJ 2 MG/ML 2 ML VIAL ONE (06:29)
[2019-06-06] MEDS ORDERED: PROPOFOL IV EMULSION 10 MG/ML 20 ML VIAL IV ONE (06:29)
[2019-06-06] MEDS ORDERED: ROCURONIUM BROMIDE 10 MG/ML 5 ML VIAL ONE (06:29)
[2019-06-06] MEDS ORDERED: fentaNYL citrate 100 MCG/2 ML VIAL ONE (06:29)
[2019-06-06] MEDS ORDERED: LEVOTHYROXINE SODIUM 100 MCG TABLET PO SCH (06:30)
[2019-06-06] MEDS ORDERED: ONDANSETRON INJ 2 MG/ML 2 ML VIAL IV PRN (06:56)
[2019-06-06] MEDS ORDERED: ATROPINE SULFATE 0.1 MG/ML 10ML SYR IV PRN (06:56)
[2019-06-06] MEDS ORDERED: fentaNYL citrate 100 MCG/2 ML VIAL IV PRN (06:56)
[2019-06-06] MEDS ORDERED: ePHEDrine sulfate 50 MG/ML AMP IV PRN (06:56)
--- NOTE | 2019-06-06 07:07 | History & Physical Bridge Note ---
Date of Service June 06, 2019 History & Physical Bridge Note I have examined the patient, reviewed the History & Physical and in the interval since the performance of the History & Physical I have noted the following changes of clinical significance: no changes noted. The patient has been followed by me for several years as a result of recurrent choledocholithiasis. Given the recurrent discomfort and symptoms we are concerned for recurrence today. We are planning to do upper endoscopy with endoscopic ultrasound and if positive for evidence of choledocholithiasis we will perform an ERCP with gallstone extraction. I have discussed the risks of the procedures to include bleeding, infection, perforation and need for follow-up examinations.
[2019-06-06] MEDS ORDERED: INDOMETHACIN 50 MG SUPP PR STA (07:18)
--- NOTE | 2019-06-06 07:30 | GI REPORT ---
Patient Name: Angelika Herrera Procedure Date: 06/06/2019 7:15 AM Date of : 1945 Admit Type: Inpatient Age: 73 Gender: Female Attending MD: Griffin Doll DO Procedure: Upper GI endoscopy Providers: Griffin Doll DO Referring MD: Arnoldo Cortez Indications: Epigastric abdominal pain, Abdominal pain in the right upper quadrant Medicines: Monitored Anesthesia Care Complications: No immediate complications. Estimated blood loss: Minimal. Estimated Blood Loss: Estimated blood loss was minimal. Procedure: Pre-Anesthesia Assessment: - Prior to the procedure, a History and Physical was performed, and patient medications, allergies and sensitivities were reviewed. The patient's tolerance of previous anesthesia was reviewed. - The risks and benefits of the procedure and the sedation options and risks were discussed with the patient. All questions were answered and informed consent was obtained. - Patient identification and proposed procedure were verified prior to the procedure by the physician, the nurse and the raw sampler. The procedure was verified in the procedure room. - Pre-procedure physical examination revealed no contraindications to sedation. - ASA Grade Assessment: III - A patient with severe systemic disease. - After reviewing the risks and benefits, the patient was deemed in satisfactory condition to undergo the procedure. - The anesthesia plan was to use general anesthesia. - Immediately prior to administration of medications, the patient was re-assessed for adequacy to receive sedatives. - The heart rate, respiratory rate, oxygen saturations, blood pressure, adequacy of pulmonary ventilation, and response to care were monitored throughout the procedure. - The physical status of the patient was re-assessed after the procedure. After obtaining informed consent, the endoscope was passed under direct vision. Throughout the procedure, the patient's blood pressure, pulse, and oxygen saturations were monitored continuously.The upper GI endoscopy was accomplished without difficulty. The patient tolerated the procedure well. The scope was introduced through the mouth, and advanced to the third part of duodenum. Findings: The examined esophagus was normal. The Z-line was regular and was found 36 cm from the incisors. Diffuse mild inflammation characterized by erythema and granularity was found in the entire examined stomach. Biopsies were taken with a cold forceps for histology. Estimated blood loss was minimal. The examined duodenum was normal. Impression: - Normal esophagus. - Z-line regular, 36 cm from the incisors. - Gastritis. Biopsied. - Normal examined duodenum. Recommendation: - Perform an upper endoscopic ultrasound (UEUS) today. - Await pathology results. Griffin Doll D.O. Griffin Doll, 06/06/2019 7:29:46 AM This report has been signed electronically. Note Initiated On: 06/06/2019 7:15 AM Number of Addenda: 0 I attest to the content of the Intraoperative Record and orders documented therein, exceptions below {[id number]}
--- NOTE | 2019-06-06 07:42 | GI REPORT ---
Patient Name: Angelika Herrera Procedure Date: 06/06/2019 7:17 AM Date of : 1945 Admit Type: Inpatient Age: 73 Gender: Female Attending MD: Griffin Doll DO Procedure: Upper EUS Providers: Griffin Doll DO Referring MD: Arnoldo Cortez Indications: Suspected choledocholithiasis, Epigastric abdominal pain, Abdominal pain in the right upper quadrant Medicines: General Anesthesia Complications: No immediate complications. Estimated blood loss: Minimal. Estimated Blood Loss: Estimated blood loss was minimal. Procedure: Pre-Anesthesia Assessment: - Prior to the procedure, a History and Physical was performed, and patient medications, allergies and sensitivities were reviewed. The patient's tolerance of previous anesthesia was reviewed. - The risks and benefits of the procedure and the sedation options and risks were discussed with the patient. All questions were answered and informed consent was obtained. - Patient identification and proposed procedure were verified prior to the procedure by the physician, the nurse and the assembler adjuster. The procedure was verified in the pre-procedure area in the procedure room. - Pre-procedure physical examination revealed no contraindications to sedation. - ASA Grade Assessment: III - A patient with severe systemic disease. - After reviewing the risks and benefits, the patient was deemed in satisfactory condition to undergo the procedure. - The anesthesia plan was to use general anesthesia. - Immediately prior to administration of medications, the patient was re-assessed for adequacy to receive sedatives. - The heart rate, respiratory rate, oxygen saturations, blood pressure, adequacy of pulmonary ventilation, and response to care were monitored throughout the procedure. - The physical status of the patient was re-assessed after the procedure. After obtaining informed consent, the endoscope was passed under direct vision. Throughout the procedure, the patient's blood pressure, pulse, and oxygen saturations were monitored continuously. The Scope was introduced through the mouth, and advanced to the third part of duodenum. The upper EUS was accomplished without difficulty. The patient tolerated the procedure well. Findings: ENDOSONOGRAPHIC FINDING: : Evidence of a previous cholecystectomy was identified endosonographically. There was dilation in the common bile duct which measured up to 9 mm. Moderate hyperechoic material consistent with sludge / stone material was visualized endosonographically in the common bile duct. There was no sign of significant endosonographic abnormality in the left lobe of the liver. Homogeneous parenchyma and no focal pathology were identified. There was no sign of significant endosonographic abnormality in the entire pancreas. No masses, no cysts, the pancreatic duct was thin in caliber. No lymphadenopathy seen. There was no sign of significant endosonographic abnormality in the left adrenal gland. No adrenal gland enlargement was identified. Impression: - Evidence of a cholecystectomy. - There was dilation in the common bile duct which measured up to 9 mm. - Hyperechoic material consistent with sludge/sone material was visualized endosonographically in the common bile duct. - There was no evidence of significant pathology in the left lobe of the liver. - There was no sign of significant pathology in the entire pancreas. - Endosonographic images of the left adrenal gland were unremarkable. - No specimens collected. Recommendation: - Perform an ERCP today. Griffin Doll D.O. Griffin Doll DO 06/06/2019 7:42:25 AM This report has been signed electronically. Note Initiated On: 06/06/2019 7:17 AM Number of Addenda: 0 I attest to the content of the Intraoperative Record and orders documented therein, exceptions below {[id number]}
--- NOTE | 2019-06-06 08:02 | Post Operative Brief Note ---
Immediate Post Op Note v1 Date of Surgery June 06, 2019 Pre & Post Diagnosis Operation Date: 06/06/19 07:15 Pre-Op Diagnosis: ABDOMINAL PAIN, SUSPECTED CHOLEDOCHOLITHIASIS Post-Op Diagnosis: ABDOMINAL PAIN, SUSPECTED CHOLEDOCHOLITHIASIS Procedure Operation Date: 06/06/19 07:15 Actual Procedures p Endoscopic Retrograde Cholangiopancreatogram with(Not Applicable) - Griffin hoskins Upper Endoscopic Ultrasonography - Griffin Doll Surgeon Griffin Doll Buffer Automatic none Estimated Blood Loss 0 Findings Consistent with Post-Op Diagnosis
--- NOTE | 2019-06-06 08:09 | Hospitalist Progress Note ---
Date of Service June 06, 2019 Assessment & Plan (1) RUQ abdominal pain: Possible recurrent choledocholithiasis. Consult GI service who has seen her previously. Obtain MRCP. Parenteral narcotics as needed (2) Vomiting: Parenteral antiemetics. Clear liquid diet for now. Advance as tolerated (3) Chronic kidney disease (CKD), stage III (moderate): Monitor intake and output. 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 Switch to intravenous hydrocortisone if she is unable to take her oral medications (5) Rheumatoid arthritis: Treated with Medrol and hydroxychloroquine (6) Hypertension: Treated with atenolol (7) Asthma: Stable. Continue inhaler therapy (8) DVT prophylaxis: Lovenox subcu Results & Data Vital Signs (Past 12 Hours) Vital Signs Temp Pulse Resp BP Pulse Ox 06/06/19 06:33 37 C 88 20 171/101 H 97 06/06/19 05:56 36.8 C 83 16 175/71 H 97 06/06/19 00:00 36.6 C 85 18 138/76 96 PG Care Time/CCT Total # of Minutes Spent Total Time Spent with Patient: Total time spent is greater than 50% in coordination of care (as documented) at patient's floor/unit and/or counseling patient: (1) Vomiting Vomiting type: unspecified
[2019-06-06] MEDS ORDERED: CIPROFLOXACIN 400MG / 200ML D5W IV ONE (08:12)
--- NOTE | 2019-06-06 08:31 | Communication Note ---
Date of Service: June 06, 2019 The patient underwent endoscopic evaluation today. We did find a large amount of sludge within the common bile duct. We ultimately performed an ERCP with r emoval of the sludge and debris. Given the size of her bile duct I would suggest a 5-day course of ciprofloxacin. If the patient is feeling well this afternoon she likely can be discharged on a clear liquid diet today with advancing her diet on Monday. Recommendations Ciprofloxacin for 5 days Clear liquid diet today
--- NOTE | 2019-06-06 08:40 | Anesthesiology Progress Note ---
Date of Service June 06, 2019 Anesthesia Post Procedure Vital Signs Vital Signs: Temp Pulse Pulse Pulse Resp BP BP 06/06/19 08:35 73 14 149/72 H 06/06/19 08:25 74 14 163/72 H 06/06/19 08:15 74 14 154/73 H 06/06/19 08:09 97.7 F 77 14 152/70 H 06/06/19 06:33 98.6 F 88 20 06/06/19 05:56 98.2 F 83 16 06/06/19 00:00 97.9 F 85 18 06/05/19 16:16 98.4 F 67 18 145/76 H 06/05/19 13:47 99.0 F 74 20 06/05/19 13:14 71 16 138/68 06/05/19 12:30 68 15 139/65 06/05/19 12:00 72 15 130/77 06/05/19 11:30 72 15 117/81 06/05/19 11:00 73 19 147/74 H 06/05/19 10:19 67 16 134/62 06/05/19 09:18 67 18 134/98 BP Pulse Ox 06/06/19 08:35 98 06/06/19 08:25 100 06/06/19 08:15 100 06/06/19 08:09 95 06/06/19 06:33 171/101 H 97 06/06/19 05:56 175/71 H 97 06/06/19 00:00 138/76 96 06/05/19 16:16 95 06/05/19 13:47 161/80 H 98 06/05/19 13:14 96 06/05/19 12:30 98 06/05/19 12:00 99 06/05/19 11:30 98 06/05/19 11:00 100 06/05/19 10:19 98 06/05/19 09:18 98 Pain Intensity Abdomen: Pain Intensity: 6 Transfer of Care Handoff Completed per policy Notes Mental Status: alert / awake / arousable and participated in evaluation Patient Amnestic to Procedure: Yes Nausea / Vomiting: adequately controlled Pain: adequately controlled Airway Patency, RR, SpO2: stable & adequate BP & HR: stable & adequate Hydration State: stable & adequate Anesthetic Complications: no major complications apparent and Pt Satisfied with anesthetic care
[2019-06-06] MEDS ORDERED: CYANOCOBALAMIN 500 MCG TABLET (VITAMIN B-12) PO SCH (09:00)
[2019-06-06] MEDS ORDERED: methylPREDNISolone 4 MG TAB PO SCH (09:00)
[2019-06-06] MEDS ORDERED: ASCORBIC ACID 500 MG TAB PO SCH (09:00)
[2019-06-06] MEDS ORDERED: SPIRONOLACTONE 25 MG TAB PO SCH (09:00)
[2019-06-06] MEDS ORDERED: HYDROXYCHLOROQUINE SULFATE 200 MG TAB PO SCH (09:00)
[2019-06-06] MEDS ORDERED: ATENOLOL 25 MG TABLET PO SCH (09:00)
[2019-06-06] MEDS ORDERED: PANTOprazole 40 MG TAB PO SCH (09:00)
[2019-06-06] MEDS ORDERED: FAMOTIDINE 20 MG in SYRINGE 3 ML IV SCH (09:00)
[2019-06-06] MEDS: FLUTICASONE/SALMETEROL (ADVAIR) 500/50 INH 14 PUFF INH SCH (09:26)
[2019-06-06] MEDS: SODIUM CHLORIDE 1 GM TABLET PO SCH (10:04)
[2019-06-06] MEDS: URSODIOL 300 MG CAP PO SCH (10:05)
--- NOTE | 2019-06-06 11:29 | Fluoroscopy Report ---
FL ERCP biliary ductal CLINICAL HISTORY: Cholelithiasis cholelithiasis COMPARISON STUDY: MRCP dated 06/05/2019 FLUOROSCOPY TIME: 72 seconds. NUMBER OF FLUOROSCOPIC IMAGES: 12 FINDINGS: The common bile duct was cannulated in a retrograde fashion. A sphincterotomy appears to emerson ve been performed. A balloon catheter was swept through the duct. There are surgical clips consistent with a prior cholecystectomy. IMPRESSION: Fluoroscopic spot images obtained during ERCP, sphincterotomy, and balloon sweeping of t he common bile duct Electronically signed by: Jose Zimmerman M.D. 06/06/2019 11:28 AM
--- NOTE | 2019-06-06 12:06 | GI REPORT ---
Patient Name: Angelika Herrera Procedure Date: 06/06/2019 7:42 AM Date of : 1945 Admit Type: Inpatient Age: 73 Gender: Female Attending MD: Griffin Doll DO Procedure: ERCP Providers: Griffin Doll DO Referring MD: Chad Lucas Indications: Abdominal pain of suspected biliary origin, Abnormal endoscopic ultrasound of the biliary system Medicines: General Anesthesia Complications: No immediate complications. Estimated blood loss: Minimal. Estimated Blood Loss: Estimated blood loss was minimal. Procedure: Pre-Anesthesia Assessment: - Prior to the procedure, a History and Physical was performed, and patient medications, allergies and sensitivities were reviewed. The patient's tolerance of previous anesthesia was reviewed. - The risks and benefits of the procedure and the sedation options and risks were discussed with the patient. All questions were answered and informed consent was obtained. - Patient identification and proposed procedure were verified prior to the procedure by the physician, the nurse and the deputy brand inspector. The procedure was verified in the procedure room. - Pre-procedure physical examination revealed no contraindications to sedation. - ASA Grade Assessment: III - A patient with severe systemic disease. - After reviewing the risks and benefits, the patient was deemed in satisfactory condition to undergo the procedure. - The anesthesia plan was to use general anesthesia. - Immediately prior to administration of medications, the patient was re-assessed for adequacy to receive sedatives. - The heart rate, respiratory rate, oxygen saturations, blood pressure, adequacy of pulmonary ventilation, and response to care were monitored throughout the procedure. - The physical status of the patient was re-assessed after the procedure. After obtaining informed consent, the scope was passed under direct vision. Throughout the procedure, the patient's blood pressure, pulse, and oxygen saturations were monitored continuously. The Scope was introduced through the mouth, and advanced to the duodenum and used to inject contrast into the bile duct. The ERCP was accomplished without difficulty. The patient tolerated the procedure well. Findings: The total fluoroscopy exposure time was 1 minute and 12 seconds. A loan administrator film of the abdomen was obtained. Surgical clips, consistent with a previous cholecystectomy, were seen in the area of the right upper quadrant of the abdomen. The esophagus was successfully intubated under direct vision without detailed examination of the pharynx, larynx, and associated structures, and upper GI tract. The upper GI tract was grossly normal. The major papilla was located entirely within a diverticulum. A biliary sphincterotomy had been performed. The sphincterotomy appeared open. The bile duct was deeply cannulated with the short-nosed traction sphincterotome and 0.035 in Acro[employer] 2 guidewire. Contrast was injected. I personally interpreted the bile duct images. Contrast extended to the entire biliary tree. The main bile duct was diffusely dilated. The largest diameter was 15 mm. The main bile duct contained filling defect(s) thought to be sludge. To discover objects, the biliary tree was swept with a 15 mm to 20 mm balloon starting at the bifurcation multiple times. Green \sludge was swept from the duct. One soft green stone was removed. No stones remained on occlusion cholangiogram. The endoscope was withdrawn from the patient. Indomethacin 100 mg was given via suppository to decrease the risk of post-ERCP pancreatitis (PEP). Impression: - The major papilla was located entirely within a diverticulum. - Prior biliary sphincterotomy appeared open. - The entire main bile duct was dilated. - Choledocholithiasis/slugde was found. Complete removal was accomplished by balloon extraction. - Indomethacin given to decrease risk of post-ERCP pancreatitis. Recommendation: - [facility] patient to [facility] for [facility] care. - Clear liquid diet today. - Observe patient's clinical course following today's ERCP with therapeutic intervention. - Cipro (ciprofloxacin) 500 mg PO BID for 5 days given the size of her CBD, first dose given in recovery. - If patient doing well this afternoon may consider same day discharge. Griffin Doll D.O. Griffin Doll, 06/06/2019 12:05:37 PM This report has been signed electronically. Note Initiated On: 06/06/2019 7:42 AM Number of Addenda: 0 I attest to the content of the Intraoperative Record and orders documented therein, exceptions below {[id number]}
--- NOTE | 2019-06-06 12:20 | Discharge Summary ---
Date of Service June 06, 2019 code 44 note. I, Ariel Gong MD, member of the utilization review committee about [facility]. This patient was unintentionally made a full admission status when observation status would be more appropriate for the patient. Although the patient is discharged recommendations to change this patient to observation status will be made at this time Admission HPI Per Admitting Provider 73-year-old female with a history of choledocholithiasis requiring ERCP with sphincterotomy in the past. Last evening she developed nausea and vomiting accompanied by epigastric and right upper quadrant discomfort. She came to the ED today for evaluation. She describes the discomfort as constant and dull. She has no hematemesis, melena, hematochezia. No fever or chills . Gallbladder ultrasound reveals previous cholecystectomy with unchanged mildly dilated biliary ducts and pneumobilia from previous procedure. There is a high suspicion of recurrent choledocholithiasis however. Gastroenterology will be consulted and MRCP obtained. Portal chest x-ray suggests the possible presence of a right pulmonary nodule. Chest x-ray PA and left lateral will be obtained. If abnormal, chest CT scan can be completed. She is admitted for further evaluation and treatment. Principal Diagnosis Choledocholithiasis Gastritis Discharge Exam Constitutional well developed and average body habitus Eyes no conjunctival abnormality and no scleral abnormality Neck normal visual inspection and trachea midline Respiratory normal respiratory effort; no respiratory distress Auscultation: lungs clear to auscultation bilaterally Cardiovascular RRR, no murmur, no edema Gastrointestinal (Abdomen) normal bowel sounds, soft, nontender, no hepatosplenomegaly Musculoskeletal no cyanosis or clubbing, extremities motor strength 5/5 Discharge Data Allergies Allergy/AdvReac Type Severity Reaction Status Date / Time gabapentin Allergy Mild DELIRIUM Verified 06/06/19 06:35 amoxicillin Allergy Unknown SEVERE Verified 06/06/19 06:35 RHEUMATOID ARTHRITIC SYMPTOMS clavulanic acid Allergy Unknown SEVERE Verified 06/06/19 06:35 RHEUMATOID ARTHRITIC SYMPTOMS Gold Salts Allergy Unknown RIDAURA Verified 06/06/19 06:35 (AURANOFIN) Sulfa (Sulfonamide AdvReac Unknown "give me Verified 06/06/19 06:35 Antibiotics) anxiety" Remicade Allergy Unknown Unknown Uncoded 06/06/19 06:35 Ridaura CAPS Allergy Unknown Unknown Uncoded 06/06/19 06:35 Consultations Date of Service: June 06, 2019 The patient underwent endoscopic evaluation today. We did find a large amount of sludge within the common bile duct. We ultimately performed an ERCP with removal of the sludge and debris. Given the size of her bile duct I would suggest a 5-day course of ciprofloxacin. On the EGD portion of this exam the stomach also showed diffuse mild inflammation characterized by erythema and granularity in the entire examined stomach biopsies were taken with cold forceps estimated blood loss was minimal duodenum was normal Procedures Performed Operation Date: 06/06/19 07:15 Actual Procedures p Endoscopic Retrograde Cholangiopancreatogram with(Not Applicable) - Griffin Doll s Upper Endoscopic Ultrasonography - Griffin Doll Ordered Studies 06/05/19 08:14 US gallbladder Stat 06/05/19 13:54 MR MRCP Routine 06/06/19 07:08 US upper EUS PACS images Routine 06/06/19 07:15 [place] ERCP biliary ductal Routine Hospital Course (1) RUQ abdominal pain: Rrecurrent choledocholithiasis. Consult GI service patient had upper endoscopy for form sludge was removed from the common bile duct stomach showed mild diffuse gastritis commendations for 5 days of ciprofloxacin therapy and 24 hours of liquid diet these are both peaked to the patient she is agreeable to go home if she tolerates diet here in the hospital and performed the recommendations. 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 Does not appear to be in a steroid deficient state at this time (5) Rheumatoid arthritis: Treated with Medrol and hydroxychloroquine (6) Hypertension: Controlled with atenolol (7) Asthma: Has not required additional interventions Total Time Total Time Spent Total Time Spent (In Minutes): greater than 30 minutes were required to prepare discharge Discharge Plan Discharge Items Patient Disposition: Home - Self-Care Reason For Visit: SUSPECTED CHOLEDOCHOLITHIASIS Discharge Diagnosis: sludge in common bile duct' irritation to lining of stomach Discharge Goals: Decrease discomfort, Diagnostic testing and Improve disease control Activity: Resume your previous activity Non-emergency contact: Primary Care Provider and Communications Department Head Call non-emergency contact if: you have any medication questions Follow-up/Referrals: Chad Wilder MD [Primary Care Provider] - 06/12/19 10:00 am (Please, follow up at [facility] with Dr. Wilder on MondayJune 12 at 10:00 am. *If you need to change this appointment, call the office at [phone].) Griffin Doll [Physician] - 06/26/19 3:00 pm (Please, follow up with Dr. Griffin Doll on MondayJune 26 at 3:00 pm. *The office is located in [facility] at [address] in [place]. If you need to change this appointment, call the office at [phone].) Diet: Regular Addtl Provider Instructions: please finish all of your antibiotics keep on a liquid diet until tomorrow evening, thursday 06/07 you will be given an rx for zantac, you may take two at night or one twice a day for a total of 2 pills (300 mg) in 24 hours Prescriptions: New ciprofloxacin HCl 500 mg tablet 500 mg PO BID Qty: 10 RF: 0 ranitidine HCl 150 mg tablet 150 mg PO BID Qty: 60 RF: 5 Continued albuterol sulfate [Ventolin HFA] 90 mcg/actuation HFA aerosol inhaler 2 puffs INH Q4H PRN (Reason: Wheezing) RF: 0 ascorbate calcium (vitamin C) 500 mg tablet 500 mg PO QAM RF: 0 atenolol [Tenormin] 25 mg tablet 25 mg PO QAM RF: 0 cyanocobalamin (vitamin B-12) 1,000 mcg capsule 1,000 mcg PO QAM RF: 0 fluticasone propion-salmeterol [Advair Diskus] 500-50 mcg/dose blister with device 1 inha INH BID RF: 0 levalbuterol HCl 0.63 mg/3 mL solution for nebulization 0.63 mg INH QID PRN (Reason: Wheezing) RF: 0 methylprednisolone 4 mg tablet 4 mg PO QAM RF: 0 spironolactone 25 mg tablet 25 mg PO DAILY RF: 0 ursodiol 300 mg capsule 300 mg PO BID RF: 0 hydroxychloroquine [Plaquenil] 200 mg tablet 300 mg PO QAM RF: 0 diclofenac sodium [Voltaren] 1 % gel 2 gm TOP .COMPLEX PRN (Reason: Pain) RF: 0 tramadol 50 mg tablet 50 mg PO Q8H PRN (Reason: pain) Qty: 90 RF: 1 sodium chloride 1 gram tablet 1,000 mg PO BID RF: 0 biotin 5,000 mcg tablet, sublingual 5,000 mcg SL QAM RF: 0 dicyclomine 10 mg capsule 10 mg PO TID RF: 0 Cholestyramine Light 4 gram powder in packet 4 gm PO .COMPLEX PRN (Reason: Diarrhea) RF: 0 gentamicin sulfate (PF) 60 mg/6 mL solution 60 mg inhalation .COMPLEX PRN (Reason: Wheezing) RF: 0 levothyroxine 100 mcg capsule 100 mcg PO QAM RF: 0 No Action Caltrate 600 + D 600 mg (1,500 mg)-800 unit tablet,chewable 1 tab PO BID RF: 0 Stand-Alone Forms: [facility], [facility]1983 Discharge Orders: Discharge Order (Routine); Ordered 06/06/19 Ordered By: Ariel Gong Admission Data Admit Date/Time: 06/05/19 11:29 Attending Provider: Ariel Gong Admit Provider: Arnoldo Cortez Primary Care Provider: Chad Wilder Other Providers: Arnoldo Cortez ; Griffin Doll Service: Medical Other Interventions: Discharge Summary Assessment (RN) Last Done: 06/06/19 15:11 DC Date/Time DO NOT enter until pt leaves facility: 06/06/19 15:30
[2019-06-07] MEDS ORDERED: CIPROFLOXACIN 400 MG/200 ML BAG IV SCH (08:00)
== END 2019-06-06 15:30 | disposition home or self-care (01) | DRG 446 ==
LOC: ED 08:00 → 2N 11:29 → SUATTDRO 11:29 → 2N 13:25 → 4W 23:00

== ENCOUNTER 2019-06-12 09:20 | Observation (INO) ==
[2019-06-12] MEDS ORDERED: SODIUM CHLORIDE 0.9% 1000ML 500 ML IV ONE (09:54)
[2019-06-12] MEDS ORDERED: ONDANSETRON INJ 2 MG/ML 2 ML VIAL IV STA (09:54)
[2019-06-12] MEDS ORDERED: KETOROLAC TROMETHAMINE 15 MG/ML VIAL IV STA (09:54)
[2019-06-12 10:35] LABS: Basophils # (auto) 0.06 K/uL (0-0.2); Basophils % (auto) 0.7 %; Eosinophils # (auto) 0.15 K/uL (0-0.5); Eosinophils % (auto) 1.7 %; Hemoglobin 10.8 g/dL (12.0-16.0); Immature Granulocytes # (auto) 0.06 K/uL (0.00-0.02); Immature Granulocytes % (auto) 0.7 %; Lymphocytes # (auto) 1.38 K/uL (1.2-3.4); Lymphocytes % (auto) 15.3 %; Mean Corpuscular Hgb Conc 33.8 g/dL (32-36); Mean Corpuscular Volume 91.4 fL (80-100); Mean Platelet Volume 9.3 fL (7.4-10.4); Monocytes # (auto) 1.01 K/uL (0.11-0.59); Monocytes % (auto) 11.2 %; Neutrophils # (auto) 6.34 K/uL (1.4-6.5); Neutrophils % (auto) 70.4 %; Platelet Count 283 K/uL (130-400); RDW Coefficient of Variation 13.7 % (11.5-14.5); RDW Standard Deviation 45.7 fL (36.4-46.3)
[2019-06-12 10:52] LABS: Albumin Level 3.3 gm/dl (3.4-5.0); BUN Creatinine Ratio 10.2 (10-20); Bilirubin Direct 0.1 mg/dl (0-0.2); Calcium 8.7 mg/dl (8.5-10.1); Creatinine Clr Calc Pharmacy 33.8 ml/min; Est GFR (African American) 53.9; Est GFR (Non-African American) 46.5; Potassium 3.4 mmol/L (3.5-5.1)
[2019-06-12 10:55] LABS: Bilirubin,Total 0.4 mg/dl (0.2-1); Total Protein 6.4 gm/dl (6.4-8.2)
--- NOTE | 2019-06-12 11:09 | XRay Report ---
XR lumbar spine min 4V routine HISTORY: 73 years-old Female back pain chronic low back pain, right greater than left COMPARISON: CT abdomen and pelvis 09/11/2017 TECHNIQUE: 5 views of the lumbar spine FINDINGS: Moderate volume of formed stool is noted throughout the colon. Cholecystectomy. Demineralized appeara nce of the bones. Mild osteoarthritis about the bilateral femoral acetabular joints. Lumbar levoscoli osis. Unchanged 7 mm anterolisthesis L4 on L5. Unchanged remote large Schmorl's node about the superi or endplate of L4. Chronic severe disc space narrowing at T12-L1, L1-L2 and L2-L3 with severe multile tal facet arthropathy. Approximately 20% anterior endplate wedging of the L3 vertebral body has progr essed from comparison. No acute subluxation. IMPRESSION: 1. Demineralized appearance of the bones with severe degenerative changes and levoscoliosis redemonst rated. 2. 20% anterior endplate wedge deformity of the L3 vertebral body has progressed from 09/11/2017. Cor relate with point tenderness. 3. Large Schmorl's node about the superior endplate of L4. The above report was generated using voice recognition software. It may contain grammatical, syntax o r spelling errors. Electronically signed by: Garfield Fernandez M.D. 06/12/2019 11:08 AM
[2019-06-12 11:46] LABS: Appearance Urine Clear (Clear); Bilirubin Urine Negative (Negative); Blood Urine Negative (Negative); Color Urine Yellow; Glucose Urine UA Negative (Negative); Ketones Urine Negative (Negative); Leukocyte Esterase Urine Negative (Negative); Nitrite Urine Negative (Negative); Protein Urine Negative (Negative); Specific Gravity Urine 1.012 (1.000-1.030); Urobilinogen Urine Negative (Negative); pH Urine 5.5 (4.5-7.5)
[2019-06-12] MEDS ORDERED: IOVERSOL 100ml IV PRN (13:07)
--- NOTE | 2019-06-12 13:23 | CT Scan Report ---
CT abd pelvis IV con only CLINICAL HISTORY: epigastric and rlq pain COMPARISON STUDY: 09/11/2017 TECHNIQUE: The patient was scanned in a dynamic helical fashion during intravenous administration of 94 cc of Optiray 320. A dose lowering technique was utilized adhering to the principles of ALARA. CT DOSE: 282.73 mGycm FINDINGS: Lower chest: There is a small hiatal hernia. There is minimal dependent atelectasis Liver: There is pneumobilia, likely secondary to a prior sphincterotomy. No focal hepatic masses are visualized Gallbladder: Surgically absent Spleen: Normal in size and attenuation. Pancreas: Unremarkable. Adrenal glands: Unremarkable. Kidneys: There is symmetric renal cortical enhancement. The kidneys are normal in size without hydron ephrosis. Bowel: There are no transition zones indicate bowel obstruction. There is colonic diverticulosis. The re are no acute peridiverticular inflammatory changes. There is a duodenal diverticulum. The appendix is borderline dilated measuring 7 mm, but there are no significant periappendiceal inflammatory miller ges. This may therefore represent an anatomic variant. There is mild fecal retention Peritoneum: There is no intraperitoneal free air or abdominal ascites. Vasculature: The abdominal aorta is normal in course and caliber. Adenopathy: None. Pelvic viscera: The uterus appears surgically absent Skeletal structures: No destructive osseous lesions are seen. IMPRESSION: 1. Surgically absent gallbladder and uterus 2. Persistent pneumobilia likely secondary to a prior sphincterotomy 3. No evidence of bowel obstruction. No evidence of free air 4. Diverticulosis. No evidence of acute diverticulitis 5. Borderline appendiceal thickening measuring 7 mm. There are however no significant periappendiceal inflammatory changes, and this may therefore represent an anatomic variant. Clinical correlation and follow-up advocated. 6. Mild fecal retention Electronically signed by: Jose Zimmerman M.D. 06/12/2019 1:22 PM
[2019-06-12] MEDS ORDERED: metroNIDAZOLE 500 MG/100 ML BAG IV STA (14:17)
[2019-06-12] MEDS ORDERED: CIPROFLOXACIN 400 MG/200 ML BAG IV STA (14:17)
--- NOTE | 2019-06-12 14:29 | History & Physical Report ---
Date of Service June 12, 2019 Assessment & Plan (1) RLQ abdominal pain: This patient has right lower quadrant abdominal discomfort but its origin was in her back. There is no hematuria or or CT evidence of nephrolithiasis. The CAT scan demonstrated a 7 mm appendix but there was no periappendiceal inflammatory response. She also has no tenderness in the right lower quadrant. I have had a long discussion with her regarding the options which would include appendectomy. She understands that we would try to do laparoscopically but there is noted possibility of needing to convert to an open procedure. The possibility of requiring open procedure may be a little higher than her due to her previous lower abdominal surgery. The other option would be to place her in the hospital on IV antibiotics with reevaluation and possible rescan tomorrow. There is no inflammatory response around the appendix but there is a possibility that that may have been muted due to her chronic steroid use for her rheumatoid arthritis. Her white blood cell count is also not elevated. She has chosen the latter of those options. We are going to admit her on Cipro and Flagyl. We will reevaluate her exam and her symptom complex in the morning. Present on Admission?: Yes (2) Constipation: The patient reports not having had a bowel movement in the last week and there is a lot of stool seen within the entire colon on CT scan. We are going to plan for enemas to start. She may also need oral cathartics. We will continue to follow with that as well. There is a possibility that the constipation may be the etiology of her discomfort as well. Present on Admission?: Yes History of Present Illness Chief Complaint: Right lower back pain and right lower quadrant abdominal pain Primary Care Provider: Chad Wilder MD This is a 73-year-old female who presented to the emergency room with a complaint of pain that began in the right lower side of her back and then radiated around to the right lower lateral abdomen. The patient states that the pain began about 2 days ago. She has chronic lower back pain but this discomfort seemed to be different than what she normally experiences. It radiated around to her abdomen after about 24 hours and is now located in both areas. She had some nausea but did not vomit. She was seen in the doctor's office yesterday and had a temperature of 99. She otherwise had no fever to her knowledge. She was hospitalized for an ERCP for recurrent primary common duct sludge and stones after having had a cholecystectomy and was discharged 1 week ago. She stated she has not had a bowel movement since. She has no dysuria or hematuria. She has no history of nephrolithiasis. She is never had pain similar to this in the past. Allergies Allergy/AdvReac Type Severity Reaction Status Date / Time gabapentin Allergy Mild DELIRIUM Verified 06/12/19 11:53 amoxicillin Allergy Unknown SEVERE Verified 06/12/19 11:53 RHEUMATOID ARTHRITIC SYMPTOMS clavulanic acid Allergy Unknown SEVERE Verified 06/12/19 11:53 RHEUMATOID ARTHRITIC SYMPTOMS Gold Salts Allergy Unknown RIDAURA Verified 06/12/19 11:53 (AURANOFIN) Sulfa (Sulfonamide AdvReac Unknown "give me Verified 06/12/19 11:53 Antibiotics) anxiety" Remicade Allergy Unknown Unknown Uncoded 06/12/19 11:53 Ridaura CAPS Allergy Unknown Unknown Uncoded 06/12/19 11:53 Home Medications Home Medications Medication Instructions Recorded Confirmed Type albuterol sulfate HFA 90 2 puffs INH Q4H PRN gm 02/15/19 06/12/19 History mcg/actuation aerosol inhaler ascorbate calcium (vitamin C) 500 500 mg PO QAM 02/15/19 06/12/19 History mg tablet atenolol 25 mg tablet 25 mg PO QAM 02/15/19 06/12/19 History cyanocobalamin (vitamin B-12) 1,000 mcg PO QAM 02/15/19 06/12/19 History 1,000 mcg capsule fluticasone 500 mcg-salmeterol 50 1 inha INH BID 02/15/19 06/12/19 History mcg/dose blistr powdr for inhalation levalbuterol 0.63 mg/3 mL solution 0.63 mg INH QID PRN ml 02/15/19 06/12/19 History for nebulization methylprednisolone 4 mg tablet 4 mg PO QAM 02/15/19 06/12/19 History spironolactone 25 mg tablet 25 mg PO DAILY 02/15/19 06/12/19 History ursodiol 300 mg capsule 300 mg PO BID 02/15/19 06/12/19 History tramadol 50 mg tablet 50 mg PO Q8H PRN #90 tab 04/18/19 06/12/19 Rx biotin 5,000 mcg sublingual tablet 5,000 mcg SL QAM 05/29/19 06/12/19 History cholestyramine-aspartame 4 gram 4 gm PO .COMPLEX PRN ea 05/29/19 06/12/19 History oral powder for susp in a packet diclofenac 1 % topical gel 2 gm TOP .COMPLEX PRN 05/29/19 06/12/19 History dicyclomine 10 mg capsule 10 mg PO TID 05/29/19 06/12/19 History gentamicin sulfate (PF) 60 mg/6 mL 60 mg INHALATION .COMPLEX PRN ml 05/29/19 06/12/19 History intravenous solution hydroxychloroquine 200 mg tablet 300 mg PO QAM tab 05/29/19 06/12/19 History sodium chloride 1 gram tablet 1,000 mg PO BID tab 05/29/19 06/12/19 History levothyroxine 100 mcg PO QAM 06/05/19 06/12/19 History ranitidine HCl 150 mg PO BID #60 tab 06/06/19 06/12/19 Rx Past Med/Surg History Medical History Steroid dependent (Chronic) RUQ abdominal pain (Acute) Vomiting (Acute) Acid reflux disease (Acute) Disc degeneration, lumbar (Acute) Hypothyroidism (Acute) Sjogrens syndrome (Acute) Hyperthyroidism (Chronic) Rheumatoid arthritis (Chronic) Steroid-induced diabetes mellitus (Chronic) Hypertension (Chronic) Asthma (Chronic) Surgical History History of ERCP (Chronic) History of cholecystectomy (Chronic) S/P YANIQUE-BSO S/P emergency Social History Preferred Language: Serbian Communication Ability: Effective Beliefs That Will Affect Care: None Current Living Situation: Spouse Feels Safe at Home: Yes Smoking Status: Never smoker Hx Alcohol Use: No Hx Substance Use: No Review of Systems Constitutional: + fever (max temp 99); no chills Respiratory: no cough and no dyspnea Cardiovascular: no chest pain Gastrointestinal: as per Subjective / HPI Genitourinary: as per Subjective / HPI Physical Exam Constitutional: no acute distress Neck: trachea midline Respiratory: normal respiratory effort, lungs clear to auscultation Cardiovascular: Rate/Rhythm: regular rate and regular rhythm Gastrointestinal (Abdomen): Inspection/Auscultation: normal bowel sounds; abdomen not distended Percussion/Palpation: abdomen soft; abdomen nontender and no guarding Skin: no rashes, warm and dry Lymphatic: no cervical lymphadenopathy Results & Data Vital Signs (Past 12 Hours) Vital Signs Temp Pulse Pulse Resp BP BP Pulse Ox 06/12/19 12:22 67 19 165/78 H 98 06/12/19 10:29 64 16 140/74 98 06/12/19 09:21 37.1 C 65 16 167/74 H 99 Laboratory Results 06/12/19 06/12/19 06/12/19 Range/Units 10:21 10:21 10:21 WBC 9.00 (4.8-10.8) K/uL RBC 3.50 L (4.2-5.4) M/uL Hgb 10.8 L (12.0-16.0) g/dL Hct 32.0 L (37-47) % MCV 91.4 (80-100) fL MCH 30.9 (25-34) pg MCHC 33.8 (32-36) g/dL RDW Std Deviation 45.7 (36.4-46.3) fL RDW Coeff of Sue 13.7 (11.5-14.5) % Plt Count 283 (130-400) K/uL MPV 9.3 (7.4-10.4) fL Immature Gran % (Auto) 0.7 % Neut % (Auto) 70.4 % Lymph % (Auto) 15.3 % [place] % (Auto) 11.2 % Eos % (Auto) 1.7 % Baso % (Auto) 0.7 % Immature Gran # (Auto) 0.06 H (0.00-0.02) K/uL Neut # (Auto) 6.34 (1.4-6.5) K/uL Lymph # (Auto) 1.38 (1.2-3.4) K/uL [place] # (Auto) 1.01 H (0.11-0.59) K/uL Eos # (Auto) 0.15 (0-0.5) K/uL Baso # (Auto) 0.06 (0-0.2) K/uL Sodium 137 (136-145) mmol/L Potassium 3.4 L (3.5-5.1) mmol/L Chloride 103 (98-107) mmol/L Carbon Dioxide 25 (21-32) mmol/L Anion Gap 9.0 (3-11) BUN 12 (7-18) mg/dl Creatinine 1.17 (0.6-1.2) mg/dl Est Cr Clr Drug Dosing 33.8 ml/min Est GFR ( Amer) 53.9 Est GFR (Non-Af Amer) 46.5 BUN/Creatinine Ratio 10.2 (10-20) Glucose 93 (70-99) mg/dl Calcium 8.7 (8.5-10.1) mg/dl Total Bilirubin 0.4 (0.2-1) mg/dl Direct Bilirubin 0.1 (0-0.2) mg/dl AST 25 (15-37) U/L ALT 31 (12-78) U/L Alkaline Phosphatase 85 (45-117) U/L Total Protein 6.4 (6.4-8.2) gm/dl Albumin 3.3 L (3.4-5.0) gm/dl Lipase 182 (73-393) U/L Urine Color Yellow Urine Appearance Clear (Clear) Urine pH 5.5 (4.5-7.5) Ur Specific [place] 1.012 (1.000-1.030) Urine Protein Negative (Negative) Urine Glucose (UA) Negative (Negative) Urine Ketones Negative (Negative) Urine Blood Negative (Negative) Urine Nitrite Negative (Negative) Urine Bilirubin Negative (Negative) Urine Urobilinogen Negative (Negative) Ur Leukocyte Esterase Negative (Negative) Diagnostic Findings CT abd pelvis IV con only CLINICAL HISTORY: epigastric and rlq pain COMPARISON STUDY: 09/11/2017 TECHNIQUE: The patient was scanned in a dynamic helical fashion during intraven ous administration of 94 cc of Optiray 320. A dose lowering technique was utilized adhering to the principles of ALARA. CT DOSE: 282.73 mGycm FINDINGS: Lower chest: There is a small hiatal hernia. There is minimal dependent atelectasis Liver: There is pneumobilia, likely secondary to a prior sphincterotomy. No focal hepatic masses are visualized Gallbladder: Surgically absent Spleen: Normal in size and attenuation. Pancreas: Unremarkable. Adrenal glands: Unremarkable. Kidneys: There is symmetric renal cortical enhancement. The kidneys are normal in size without hydronephrosis. Bowel: There are no transition zones indicate bowel obstruction. There is colonic diverticulosis. There are no acute peridiverticular inflammatory changes. There is a duodenal diverticulum. The appendix is borderline dilated measuring 7 mm, but there are no significant periappendiceal inflammatory changes. This may therefore represent an anatomic variant. There is mild fecal retention Peritoneum: There is no intraperitoneal free air or abdominal ascites. Vasculature: The abdominal aorta is normal in course and caliber. Adenopathy: None. Pelvic viscera: The uterus appears surgically absent Skeletal structures: No destructive osseous lesions are seen. IMPRESSION: 1. Surgically absent gallbladder and uterus 2. Persistent pneumobilia likely secondary to a prior sphincterotomy 3. No evidence of bowel obstruction. No evidence of free air 4. Diverticulosis. No evidence of acute diverticulitis 5. Borderline appendiceal thickening measuring 7 mm. There are however no significant periappendiceal inflammatory changes, and this may therefore represent an anatomic variant. Clinical correlation and follow-up advocated. 6. Mild fecal retention
--- NOTE | 2019-06-12 16:13 | Emergency Department Note ---
Entered by Arnoldo Bee acting as a scribe for History of Present Illness General Chief complaint: Flank Pain Stated complaint: SEVERE PAIN RT SIDE OF BACK INTO ABDOMEN Time Seen by Provider: 06/12/19 09:36 Source: patient History of Present Illness Provider complaint: Right flank pain Onset (ago): day(s) 2 Location: back and right Radiation: abdomen Pain Consistency: + constant Relieved By: + none Exacerbated By: + none Associated symptoms: + nausea/vomiting (No vomiting) and + other (Negative diarrhea ) The patient is a 73 year old female who presents to the Emergency Room with complaints of constant right sided flank and abdominal pain that started about 2 days ago. The patient states the pain radiates to her lower right abdomen and up to her "bra line". She notes that she does have chronic back pain but these symptoms feel more severe. The patient reports that with the pain she has some nausea but denies any vomiting or diarrhea. The patient also denies any urinary symptoms, shortness of breath, lower extremity numbness or recent falls. She is currently on a Medrol dose pack for her RA but is not on any blood thinners. The patient still has her appendix but has a history of a cholecystectomy and hysterectomy. Home Medications Home Medications Medication Instructions Recorded Confirmed Type albuterol sulfate HFA 90 2 puffs INH Q4H PRN gm 02/15/19 06/12/19 History mcg/actuation aerosol inhaler ascorbate calcium (vitamin C) 500 500 mg PO QAM 02/15/19 06/12/19 History mg tablet atenolol 25 mg tablet 25 mg PO QAM 02/15/19 06/12/19 History cyanocobalamin (vitamin B-12) 1,000 mcg PO QAM 02/15/19 06/12/19 History 1,000 mcg capsule fluticasone 500 mcg-salmeterol 50 1 inha INH BID 02/15/19 06/12/19 History mcg/dose blistr powdr for inhalation levalbuterol 0.63 mg/3 mL solution 0.63 mg INH QID PRN ml 02/15/19 06/12/19 His tory for nebulization methylprednisolone 4 mg tablet 4 mg PO QAM 02/15/19 06/12/19 History spironolactone 25 mg tablet 25 mg PO DAILY 02/15/19 06/12/19 History ursodiol 300 mg capsule 300 mg PO BID 02/15/19 06/12/19 History tramadol 50 mg tablet 50 mg PO Q8H PRN #90 tab 04/18/19 06/12/19 Rx biotin 5,000 mcg sublingual tablet 5,000 mcg SL QAM 05/29/19 06/12/19 History cholestyramine-aspartame 4 gram 4 gm PO .COMPLEX PRN ea 05/29/19 06/12/19 History oral powder for susp in a packet diclofenac 1 % topical gel 2 gm TOP .COMPLEX PRN 05/29/19 06/12/19 History dicyclomine 10 mg capsule 10 mg PO TID 05/29/19 06/12/19 History gentamicin sulfate (PF) 60 mg/6 mL 60 mg INHALATION .COMPLEX PRN ml 05/29/19 06/12/19 History intravenous solution hydroxychloroquine 200 mg tablet 300 mg PO QAM tab 05/29/19 06/12/19 History sodium chloride 1 gram tablet 1,000 mg PO BID tab 05/29/19 06/12/19 History levothyroxine 100 mcg PO QAM 06/05/19 06/12/19 History ranitidine HCl 150 mg PO BID #60 tab 06/06/19 06/12/19 Rx Allergies Allergy/AdvReac Type Severity Reaction Status Date / Time gabapentin Allergy Mild DELIRIUM Verified 06/12/19 11:53 amoxicillin Allergy Unknown SEVERE Verified 06/12/19 11:53 RHEUMATOID ARTHRITIC SYMPTOMS clavulanic acid Allergy Unknown SEVERE Verified 06/12/19 11:53 RHEUMATOID ARTHRITIC SYMPTOMS Gold Salts Allergy Unknown RIDAURA Verified 06/12/19 11:53 (AURANOFIN) Sulfa (Sulfonamide AdvReac Unknown "give me Verified 06/12/19 11:53 Antibiotics) anxiety" Remicade Allergy Unknown Unknown Uncoded 06/12/19 11:53 Ridaura CAPS Allergy Unknown Unknown Uncoded 06/12/19 11:53 Past Med/Surg History Medical History Steroid dependent (Chronic) RUQ abdominal pain (Acute) Vomiting (Acute) Acid reflux disease (Acute) Disc degeneration, lumbar (Acute) Hypothyroidism (Acute) Sjogrens syndrome (Acute) Hyperthyroidism (Chronic) Rheumatoid arthritis (Chronic) Steroid-induced diabetes mellitus (Chronic) Hypertension (Chronic) Asthma (Chronic) Surgical History History of ERCP (Chronic) History of cholecystectomy (Chronic) S/P YANIQUE-BSO S/P emergency Social History Preferred Language: Uzbek Communication Ability: Effective Beliefs That Will Affect Care: None Current Living Situation: Spouse Feels Safe at Home: Yes Smoking Status: Never smoker Hx Alcohol Use: No Hx Substance Use: No Review of Systems See HPI for pertinent positives & negatives. and A total of 10 systems reviewed and were otherwise negative Physical Exam Vital Signs Vital Signs - 24 hr 06/12/19 09:21 06/12/19 10:29 06/12/19 12:22 Temperature 37.1 C Temperature Source Oral Sepsis Recent Fever Within 48 Hours No Sepsis New/Unexplained Change in Mental Status No Sepsis Action Taken by Nursing No Action Required Pulse Rate 65 Pulse Rate [Finger] 64 67 Respiratory Rate 16 16 19 Respiratory Effort / Characteristics Non-Labored Spontaneous Non-Labored Respiratory Depth Normal Blood Pressure 167/74 H Blood Pressure [Left Arm] 140/74 165/78 H Blood Pressure Mean 105 Blood Pressure Mean [Left Arm] 96 107 Blood Pressure Position [Left Arm] Lying Pulse Oximetry 99 98 98 Oxygen Delivery Method Room Air Room Air Room Air 06/12/19 14:33 Temperature Temperature Source Sepsis Recent Fever Within 48 Hours Sepsis New/Unexplained Change in Mental Status Sepsis Action Taken by Nursing Pulse Rate Pulse Rate [Finger] 63 Respiratory Rate 18 Respiratory Effort / Characteristics Respiratory Depth Blood Pressure Blood Pressure [Left Arm] 148/64 H Blood Pressure Mean Blood Pressure Mean [Left Arm] 92 Blood Pressure Position [Left Arm] Pulse Oximetry 97 Oxygen Delivery Method Room Air GENERAL: She is oriented to person, place, and time. She appears well-developed and well-nourished. She does not appear distressed. HENT: Exam performed. Head: Normocephalic and atraumatic. Right Ear: External ear normal. No mastoid tenderness. Left Ear: External ear normal. No mastoid tenderness. Mouth/Throat: The oropharynx is clear and moist. No trismus in the jaw. No dental abscesses or uvula swelling. No oropharyngeal exudate or tonsillar abscesses. EYES: Conjunctivae and EOM are normal. Pupils are equal, round, and reactive to light. Right eye exhibits no discharge. Left eye exhibits no discharge. No scleral icterus. NECK: Normal range of motion. Neck supple. No JVD present. No spinous process tenderness present. No carotid bruit present. No rigidity. No tracheal deviation and normal range of motion present. No Brudzinski's sign and no Kernig's sign noted. CV: Normal rate, regular rhythm, normal heart sounds and intact distal pulses. There is no peripheral edema. Palpable radial pulses bue. PULM/CHEST: Effort normal and breath sounds normal. No respiratory distress. No stridor. She has no wheezes. She has no rales. Chest Wall: She exhibits no tenderness. ABD: The abdomen is soft. Bowel sounds are normal. She has no distension. No mass is present. Pain on palpation of the epigastrium and RLQ. There is no rebound, no guarding, no Hart's sign and no tenderness at McBurney's point. Rovsig negative MUSC/SKEL: Normal range of motion. There is no peripheral edema, tenderness or deformity. LYMPH: No cervical adenopathy. NEURO: She is alert and oriented to person, place, and time. She has normal strength. No cranial nerve deficit or sensory deficit. Coordination and gait normal. GCS eye subscore is 4. GCS verbal subscore is 5. GCS motor subscore is 6. cerbellar tests wnl. SKIN: Skin is warm and dry. She is not diaphoretic. PSYCH: She has a normal mood and affect. Her behavior is normal. Judgment and thought content normal. Course 0949: Past medical records reviewed. The patient was evaluated in room B09, and a complete history and physical examination were performed. 1334: Vital signs stable. Labs within normal limits. CT of the abdomen shows borderline appendiceal thickening measuring 7 mm. The patient's lumbar spine x-ray shows a possible L3 vertebral body fracture, however there is no pain on palpation of the C, T or L-spine spine. Given the patient's dilated appendix, general surgery will be consulted.I spoke to Dr. Brambila - General Surgery about the patient's case. He is going to come evaluate the patient. 1417: Vital signs stable. After evaluating the patient, Dr. Brambila is going to accept her for further observation. He recommends starting the patient on IV antibiotics, Cipro Flagyl been ordered. Consultations Consultation #1: I spoke to Dr. Brambila - General Surgery about the patient's case. He is going to come evaluate the patient. Time: 13:34 Consultation #2: After evaluating the patient, Dr. Brambila is going to accept her for further observation. Time: 14:17 Administered Medications Ioversol (Optiray 320 100ml) 94 ml IV ONCE PRN PRN Reason: Interaction Checking Stop: 06/16/19 13:06 Last Admin: 06/12/19 13:08 Dose: 94 ml Documented by: [id number] Discontinued Medications Sodium Chloride (Nss 1000ml) 500 mls @ 999 mls/hr IV .Q31M ONE Stop: 06/12/19 10:24 Last Infusion: 06/12/19 11:10 Dose: 0 mls/hr Documented by: [id number] Admin: 06/12/19 10:27 Dose: 999 mls/hr Documented by: [id number] Ciprofloxacin (Cipro) 400 mg in 200 mls @ 200 mls/hr IV NOW STA Stop: 06/12/19 15:16 Last Admin: 06/12/19 15:39 Dose: 200 mls/hr Documented by: [id number] Metronidazole (Flagyl) 500 mg in 100 mls @ 100 mls/hr IV NOW STA Stop: 06/12/19 15:16 Last Infusion: 06/12/19 15:55 Dose: 0 mls/hr Documented by: [id number] Admin: 06/12/19 14:33 Dose: 100 mls/hr Documented by: [id number] Ketorolac Tromethamine (Toradol) 15 mg IV NOW STA Stop: 06/12/19 09:55 Last Admin: 06/12/19 10:26 Dose: 15 mg Documented by: [id number] Ondansetron HCl (Zofran) 4 mg IV NOW STA Stop: 06/12/19 09:55 Last Admin: 06/12/19 10:26 Dose: 4 mg Documented by: [id number] Medical Decision Making Medical Records Attestation: I reviewed the patient's medical records. Home Medications Current Medication List: was personally reviewed by me Laboratory Data Attestation: I reviewed the patient's lab results. Result diagrams: 06/12/19 10:21 06/12/19 10:21 Lab Results 06/12/19 06/12/1906/12/19 Range/Units 10:21 10:21 10:21 WBC 9.00 (4.8-10.8) K/uL RBC 3.50 L (4.2-5.4) M/uL Hgb 10.8 L (12.0-16.0) g/dL Hct 32.0 L (37-47) % MCV 91.4 (80-100) fL MCH 30.9 (25-34) pg MCHC 33.8 (32-36) g/dL RDW Std Deviation 45.7 (36.4-46.3) fL RDW Coeff of Sue 13.7 (11.5-14.5) % Plt Count 283 (130-400) K/uL MPV 9.3 (7.4-10.4) fL Immature Gran % (Auto) 0.7 % Neut % (Auto) 70.4 % Lymph % (Auto) 15.3 % Leon % (Auto) 11.2 % Eos % (Auto) 1.7 % Baso % (Auto) 0.7 % Immature Gran # (Auto) 0.06 H (0.00-0.02) K/uL Neut # (Auto) 6.34 (1.4-6.5) K/uL Lymph # (Auto) 1.38 (1.2-3.4) K/uL Leon # (Auto) 1.01 H (0.11-0.59) K/uL Eos # (Auto) 0.15 (0-0.5) K/uL Baso # (Auto) 0.06 (0-0.2) K/uL Sodium 137 (136-145) mmol/L Potassium 3.4 L (3.5-5.1) mmol/L Chloride 103 (98-107) mmol/L Carbon Dioxide 25 (21-32) mmol/L Anion Gap 9.0 (3-11) BUN 12 (7-18) mg/dl Creatinine 1.17 (0.6-1.2) mg/dl Est Cr Clr Drug Dosing 33.8 ml/min Est GFR ( Amer) 53.9 Est GFR (Non-Af Amer) 46.5 BUN/Creatinine Ratio 10.2 (10-20) Glucose 93 (70-99) mg/dl Calcium 8.7 (8.5-10.1) mg/dl Total Bilirubin 0.4 (0.2-1) mg/dl Direct Bilirubin 0.1 (0-0.2) mg/dl AST 25 (15-37) U/L ALT 31 (12-78) U/L Alkaline Phosphatase 85 (45-117) U/L Total Protein 6.4 (6.4-8.2) gm/dl Albumin 3.3 L (3.4-5.0) gm/dl Lipase 182 (73-393) U/L Urine Color Yellow Urine Appearance Clear (Clear) Urine pH 5.5 (4.5-7.5) Ur Specific [place] 1.012 (1.000-1.030) Urine Protein Negative (Negative) Urine Glucose (UA) Negative (Negative) Urine Ketones Negative (Negative) Urine Blood Negative (Negative) Urine Nitrite Negative (Negative) Urine Bilirubin Negative (Negative) Urine Urobilinogen Negative (Negative) Ur Leukocyte Esterase Negative (Negative) Imaging Data Radiologist's Impression: Radiology results as stated below per my review and the radiologist's interpretation: XR lumbar spine min 4V routine HISTORY: 73 years-old Female back pain chronic low back pain, right greater than left COMPARISON: CT abdomen and pelvis 09/11/2017 TECHNIQUE: 5 views of the lumbar spine FINDINGS: Moderate volume of formed stool is noted throughout the colon. Cholecystectomy. Demineralized appearance of the bones. Mild osteoarthritis about the bilateral femoral acetabular joints. Lumbar levoscoliosis. Unchanged 7 mm anterolisthesis L4 on L5. Unchanged remote large Schmorl's node about the superior endplate of L4. Chronic severe disc space narrowing at T12-L1, L1-L2 and L2-L3 with severe multilevel facet arthropathy. Approximately 20% anterior endplate wedging of the L3 vertebral body has progressed from comparison. No acute subluxation. IMPRESSION: 1. Demineralized appearance of the bones with severe degenerative changes and levoscoliosis redemonstrated. 2. 20% anterior endplate wedge deformity of the L3 vertebral body has progressed from 09/11/2017. Correlate with point tenderness. 3. Large Schmorl's node about the superior endplate of L4. The above report was generated using voice recognition software. It may contain grammatical, syntax or spelling errors. Electronically signed by: Garfield Fernandez M.D. 06/12/2019 11:[address] abd pelvis IV con only CLINICAL HISTORY: epigastric and rlq pain COMPARISON STUDY: 09/11/2017 TECHNIQUE: The patient was scanned in a dynamic helical fashion during intravenous administration of 94 cc of Optiray 320. A dose lowering technique was utilized adhering to the principles of ALARA. CT DOSE: 282.73 mGycm FINDINGS: Lower chest: There is a small hiatal hernia. There is minimal dependent atelectasis Liver: There is pneumobilia, likely secondary to a prior sphincterotomy. No focal hepatic masses are visualized Gallbladder: Surgically absent Spleen: Normal in size and attenuation. Pancreas: Unremarkable. Adrenal glands: Unremarkable. Kidneys: There is symmetric renal cortical enhancement. The kidneys are normal in size without hydronephrosis. Bowel: There are no transition zones indicate bowel obstruction. There is colonic diverticulosis. There are no acute peridiverticular inflammatory changes. There is a duodenal diverticulum. The appendix is borderline dilated measuring 7 mm, but there are no significant periappendiceal inflammatory changes. This may therefore represent an anatomic variant. There is mild fecal retention Peritoneum: There is no intraperitoneal free air or abdominal ascites. Vasculature: The abdominal aorta is normal in course and caliber. Adenopathy: None. Pelvic viscera: The uterus appears surgically absent Skeletal structures: No destructive osseous lesions are seen. IMPRESSION: 1. Surgically absent gallbladder and uterus 2. Persistent pneumobilia likely secondary to a prior sphincterotomy 3. No evidence of bowel obstruction. No evidence of free air 4. Diverticulosis. No evidence of acute diverticulitis 5. Borderline appendiceal thickening measuring 7 mm. There are however no significant periappendiceal inflammatory changes, and this may therefore represent an anatomic variant. Clinical correlation and follow-up advocated. 6. Mild fecal retention Electronically signed by: Jose Zimmerman M.D. 06/12/2019 1:22 PM Blood Pressure Blood Pressure Findings: Elevated blood pressure Blood Pressure Disposition: Referred to patients primary care provider [facility] Narrative 0979: Past medical records reviewed. The patient was evaluated in room B09, and a complete history and physical examination were performed. 1334: Vital signs stable. Labs within normal limits. CT of the abdomen shows borderline appendiceal thickening measuring 7 mm. The patient's lumbar spine x- ray shows a possible L3 vertebral body fracture, however there is no pain on palpation of the C, T or L-spine spine. Given the patient's dilated appendix, general surgery will be consulted.I spoke to Dr. Brambila - General Surgery about the patient's case. He is going to come evaluate the patient. 1417: Vital signs stable. After evaluating the patient, Dr. Brambila is going to accept her for further observation. He recommends starting the patient on IV antibiotics, Cipro Flagyl been ordered. Impression & Plan RLQ abdominal pain Discharge Plan Visit Data Chief Complaint: Flank Pain Stated Complaint: SEVERE PAIN RT SIDE OF BACK INTO ABDOMEN ED Provider: Dayday Champagne Discharge Problem: RLQ abdominal pain Patient Disposition: Being Evaluated by Surgeon Forms Stand Alone Forms: My [facility] [place] [employer] Prescriptions Prescriptions: No Action albuterol sulfate [Ventolin HFA] 90 mcg/actuation HFA aerosol inhaler 2 puffs INH Q4H PRN (Reason: Wheezing) RF: 0 ascorbate calcium (vitamin C) 500 mg tablet 500 mg PO QAM RF: 0 atenolol [Tenormin] 25 mg tablet 25 mg PO QAM RF: 0 cyanocobalamin (vitamin B-12) 1,000 mcg capsule 1,000 mcg PO QAM RF: 0 fluticasone propion-salmeterol [Advair Diskus] 500-50 mcg/dose blister with device 1 inha INH BID RF: 0 levalbuterol HCl 0.63 mg/3 mL solution for nebulization 0.63 mg INH QID PRN (Reason: Wheezing) RF: 0 methylprednisolone 4 mg tablet 4 mg PO QAM RF: 0 spironolactone 25 mg tablet 25 mg PO DAILY RF: 0 ursodiol 300 mg capsule 300 mg PO BID RF: 0 hydroxychloroquine [Plaquenil] 200 mg tablet 300 mg PO QAM RF: 0 diclofenac sodium [Voltaren] 1 % gel 2 gm TOP .COMPLEX PRN (Reason: Pain) RF: 0 tramadol 50 mg tablet 50 mg PO Q8H PRN (Reason: pain) Qty: 90 RF: 1 sodium chloride 1 gram tablet 1,000 mg PO BID RF: 0 biotin 5,000 mcg tablet, sublingual 5,000 mcg SL QAM RF: 0 dicyclomine 10 mg capsule 10 mg PO TID RF: 0 Cholestyramine Light 4 gram powder in packet 4 gm PO .COMPLEX PRN (Reason: Diarrhea) RF: 0 gentamicin sulfate (PF) 60 mg/6 mL solution 60 mg inhalation .COMPLEX PRN (Reason: Wheezing) RF: 0 levothyroxine 100 mcg capsule 100 mcg PO QAM RF: 0 ranitidine HCl 150 mg tablet 150 mg PO BID Qty: 60 RF: 5 Referrals Referrals: Chad Wilder MD [Primary Care Provider] - The scribe's documentation has been prepared under my direction and personally reviewed by me in its entirety. I confirm that the note above accurately reflects all work, treatment, procedures, and medical decision making performed by me.
[2019-06-12] MEDS ORDERED: MoRPHine SULFATE 10 MG/ML CARP/VIAL IV PRN (18:18)
[2019-06-12] MEDS ORDERED: SOD PHOSPHATE/SOD BIPHOSPHATE ENEMA 132 ML BTL PR STA (18:18)
[2019-06-12] MEDS ORDERED: LEVALBUTEROL HCL 0.63 MG/3 ML NEB INH PRN (18:18)
[2019-06-12] MEDS ORDERED: ONDANSETRON INJ 2 MG/ML 2 ML VIAL IV PRN (18:18)
[2019-06-12] MEDS ORDERED: ALBUTEROL HFA 8 GM INHALER INH PRN (18:18)
[2019-06-12] MEDS ORDERED: MoRPHine SULFATE 4 MG/ML 1 ML CARP\\VIAL IV PRN (18:18)
[2019-06-12] MEDS ORDERED: MoRPHine SULFATE 2 MG/ML CARP IV PRN (18:18)
[2019-06-12] MEDS: SODIUM CHLORIDE 0.9% 1000ML 1,000 ML IV SCH (19:54)
[2019-06-12] MEDS ORDERED: SOD PHOSPHATE/SOD BIPHOSPHATE ENEMA 132 ML BTL PR ONE (21:20)
[2019-06-12] MEDS: FLUTICASONE/SALMETEROL (ADVAIR) 500/50 INH 14 PUFF INH SCH (21:28)
[2019-06-12] MEDS: metroNIDAZOLE 500 MG/100 ML BAG IV SCH (21:28)
[2019-06-13] MEDS: CIPROFLOXACIN 400 MG/200 ML BAG IV SCH ×2 (04:00→16:36)
[2019-06-13] MEDS: metroNIDAZOLE 500 MG/100 ML BAG IV SCH ×3 (06:34→21:34)
[2019-06-13] MEDS: LEVOTHYROXINE SODIUM 100 MCG TABLET PO SCH (06:34)
[2019-06-13] MEDS: SODIUM CHLORIDE 0.9% 1000ML 1,000 ML IV SCH ×2 (06:34→16:33)
[2019-06-13 07:40] LABS: Basophils # (auto) 0.05 K/uL (0-0.2); Basophils % (auto) 0.6 %; Eosinophils # (auto) 0.15 K/uL (0-0.5); Eosinophils % (auto) 1.8 %; Hematocrit (blood only) 29.1 % (37-47); Hemoglobin 9.7 g/dL (12.0-16.0); Immature Granulocytes # (auto) 0.05 K/uL (0.00-0.02); Immature Granulocytes % (auto) 0.6 %; Lymphocytes # (auto) 1.52 K/uL (1.2-3.4); Lymphocytes % (auto) 18.2 %; Mean Corpuscular Hgb Conc 33.3 g/dL (32-36); Mean Corpuscular Volume 93.3 fL (80-100); Mean Platelet Volume 8.8 fL (7.4-10.4); Monocytes # (auto) 0.84 K/uL (0.11-0.59); Monocytes % (auto) 10.1 %; Neutrophils # (auto) 5.74 K/uL (1.4-6.5); Neutrophils % (auto) 68.7 %; Platelet Count 255 K/uL (130-400); RDW Coefficient of Variation 13.7 % (11.5-14.5); RDW Standard Deviation 46.1 fL (36.4-46.3); Red Blood Count 3.12 M/uL (4.2-5.4); White Blood Count 8.35 K/uL (4.8-10.8)
--- NOTE | 2019-06-13 07:47 | Surgery Progress Note ---
Date of Service June 13, 2019 Assessment & Plan (1) RLQ abdominal pain: This patient's pain is unchanged after conservative management with IV antibiotics. We will plan for laparoscopic appendectomy. I reviewed with her the fact that there is a possibility that we will need to convert to an open procedure. We discussed the possible complications associated with the procedures. I answered her questions and she has signed a consent form. Subjective She continues to have pain at the same level She only had a very small results with her enema She has been afebrile No nausea or vomiting Physical Exam Gastrointestinal (Abdomen): Inspection/Auscultation: abdomen not distended Percussion/Palpation: + abdomen tender and abdomen soft Right lower quadrant tenderness especially laterally Results & Data Vital Signs (Past 12 Hours) Vital Signs Temp Pulse Resp BP Pulse Ox 06/13/19 07:00 36.8 C 60 19 169/70 H 96 06/12/19 22:55 36.7 C 64 18 130/74 95 Laboratory Results Pending
[2019-06-13 08:14] LABS: BUN Creatinine Ratio 11.7 (10-20); Calcium 8.4 mg/dl (8.5-10.1); Creatinine Clr Calc Pharmacy 32.2 ml/min; Est GFR (African American) 50.3; Est GFR (Non-African American) 43.4; Potassium 3.6 mmol/L (3.5-5.1)
[2019-06-13] MEDS: FLUTICASONE/SALMETEROL (ADVAIR) 500/50 INH 14 PUFF INH SCH ×2 (08:52→20:41)
[2019-06-13] MEDS: ATENOLOL 25 MG TABLET PO SCH (08:53)
[2019-06-13] MEDS: HYDROCORTISONE SOD 50 MG in SYRINGE 0 ML IV SCH ×2 (08:53→20:40)
--- NOTE | 2019-06-13 08:56 | Anesthesiology Consultation ---
Date of Service June 13, 2019 Assessment & Plan (1) Encounter for pre-operative examination: Chart Review Chart Review: Acceptable Risk for Surgery Consults Requested none ASA ASA3 Proposed Anesthesia Anesthesia Type: General Risk / Benefits Reviewed With: PT / POA / Parent / Guardian, Accepts Plan and Informed Consent Obtained History Surgery Operation Date: 06/13/19 12:55 Proposed Procedures p Laparoscopic Appendectomy - Russ Brambila MD Height/Weight Height: 5 ft Weight: 56 kg Allergies Allergy/AdvReac Type Severity Reaction Status Date / Time gabapentin Allergy Mild DELIRIUM Verified 06/12/19 11:53 amoxicillin Allergy Unknown SEVERE Verified 06/12/19 11:53 RHEUMATOID ARTHRITIC SYMPTOMS clavulanic acid Allergy Unknown SEVERE Verified 06/12/19 11:53 RHEUMATOID ARTHRITIC SYMPTOMS Gold Salts Allergy Unknown RIDAURA Verified 06/12/19 11:53 (AURANOFIN) Sulfa (Sulfonamide AdvReac Unknown "give me Verified 06/12/19 11:53 Antibiotics) anxiety" Remicade Allergy Unknown Unknown Uncoded 06/12/19 11:53 Ridaura CAPS Allergy Unknown Unknown Uncoded 06/12/19 11:53 Medications Home Medications Medication Instructions Recorded Confirmed Last Taken albuterol sulfate HFA 90 2 puffs INH Q4H PRN gm 02/15/19 06/12/19 Unknown mcg/actuation aerosol inhaler ascorbate calcium (vitamin C) 500 500 mg PO QAM 02/15/19 06/12/19 06/12/19 mg tablet atenolol 25 mg tablet 25 mg PO QAM 02/15/19 06/12/19 06/12/19 cyanocobalamin (vitamin B-12) 1,000 mcg PO QAM 02/15/19 06/12/19 06/12/19 1,000 mcg capsule fluticasone 500 mcg-salmeterol 50 1 inha INH BID 02/15/19 06/12/19 06/12/19 mcg/dose blistr powdr for inhalation levalbuterol 0.63 mg/3 mL solution 0.63 mg INH QID PRN ml 02/15/19 06/12/19 Unknown for nebulization methylprednisolone 4 mg tablet 4 mg PO QAM 02/15/19 06/12/19 06/12/19 spironolactone 25 mg tablet 25 mg PO DAILY 02/15/19 06/12/19 06/12/19 ursodiol 300 mg capsule 300 mg PO BID 02/15/19 06/12/19 06/12/19 tramadol 50 mg tablet 50 mg PO Q8H PRN #90 tab 04/18/19 06/12/19 Unknown biotin 5,000 mcg sublingual tablet 5,000 mcg SL QAM 05/29/19 06/12/19 06/12/19 cholestyramine-aspartame 4 gram 4 gm PO .COMPLEX PRN ea 05/29/19 06/12/19 Unknown oral powder for susp in a packet diclofenac 1 % topical gel 2 gm TOP .COMPLEX PRN 05/29/19 06/12/19 Unknown dicyclomine 10 mg capsule 10 mg PO TID 05/29/19 06/12/19 06/04/19 gentamicin sulfate (PF) 60 mg/6 mL 60 mg INHALATION .COMPLEX PRN ml 05/29/19 06/12/19 Unknown intravenous solution hydroxychloroquine 200 mg tablet 300 mg PO QAM tab 05/29/19 06/12/19 06/12/19 sodium chloride 1 gram tablet 1,000 mg PO BID tab 05/29/19 06/12/19 06/12/19 levothyroxine 100 mcg PO QAM 06/05/19 06/12/19 06/12/19 ranitidine HCl 150 mg PO BID #60 tab 06/06/19 06/12/19 06/12/19 Active Medications Generic Name Dose Route Start Last Admin Trade Name Freq PRN Reason Stop Dose Admin Atenolol 25 mg 06/13/19 09:00 06/13/19 08:53 Tenormin PO 07/13/19 08:59 25 mg QAM TYREE Administration Sodium Chloride 1,000 mls @ 100 mls/hr 06/12/19 18:18 06/13/19 06:34 Nss 1000ml IV 07/12/19 18:17 100 mls/hr .Q10H TYREE Administration Metronidazole 500 mg in 100 mls @ 100 mls/hr 06/12/19 22:00 06/13/19 08:09 Flagyl IV 06/22/19 21:59 Infused Q8H TYREE Infusion Ciprofloxacin 400 mg in 200 mls @ 100 mls/hr 06/13/19 04:00 06/13/19 06:38 Cipro IV 06/23/19 03:59 Infused Q12H TYREE Infusion Protocol Hydrocortisone Sodium 1 mls @ 4 mls/min 06/13/19 09:00 06/13/19 08:53 Succinate 50 mg/ Syringe IV 07/13/19 08:59 4 mls/min BID TYREE Administration Levothyroxine Sodium 100 mcg 06/13/19 06:30 06/13/19 06:34 Synthroid PO 07/13/19 06:29 100 mcg DAILYBB TYREE Administration Morphine Sulfate 4 mg 06/12/19 18:18 06/12/19 18:53 Morphine Sulfate IV 06/26/19 18:17 4 mg Q3H PRN Administration SEVERE Pain (Scale 7,8,9,10) Ondansetron HCl 4 mg 06/12/19 18:18 06/12/19 18:53 Zofran IV 07/12/19 18:17 4 mg Q4H PRN Administration Nausea And Vomiting Ranitidine HCl 150 mg 06/12/19 21:00 06/13/19 08:53 Zantac PO 07/12/19 20:59 150 mg BID TYREE Administration Fluticasone/Salmeterol 1 puffs 06/12/19 21:00 06/13/19 08:52 Advair Diskus 500/50 INH 07/12/19 20:59 1 puffs BID TYREE Administration NPO Date Last Intake of Fluids: 06/13/19 Time Last Intake of Fluids: 00:00 Past Medical History Medical History Steroid dependent (Chronic) RUQ abdominal pain (Acute) Vomiting (Acute) Acid reflux disease (Acute) Disc degeneration, lumbar (Acute) Hypothyroidism (Acute) Sjogrens syndrome (Acute) Hyperthyroidism (Chronic) Rheumatoid arthritis (Chronic) Steroid-induced diabetes mellitus (Chronic) Hypertension (Chronic) Asthma (Chronic) Exercise / Class Metabolic Activity II 4-5 Yardwork/Stairs/Walk up hill Past Surgical History Surgical History History of ERCP (Chronic) History of cholecystectomy (Chronic) S/P YANIQUE-BSO S/P emergency Past Anesthesia History No Hx of Anesthesia Complications and No Family Hx of Anesthesia Complications History of PONV No Hx of PONV and No Hx of Motion Sickness Social History Smoking Status: Never smoker Hx Alcohol Use: No Hx Substance Use: No Physical Exam Vital Signs Last Vital Signs Temp 98.8 F 06/13/19 11:15 Pulse 72 06/13/19 11:15 Resp 18 06/13/19 11:15 BP 158/79 H 06/13/19 11:15 Pulse Ox 95 06/13/19 11:15 ENMT Mouth: no dentition abnormality Thyromental Distance: > or= 3.5 Finger Breadths Mallampati Class: II Neck normal visual inspection Respiratory normal respiratory effort Auscultation: lungs clear to auscultation bilaterally Cardiovascular Rate/Rhythm: regular rate and regular rhythm Testing Laboratory Results 06/13/19 07:24 06/13/19 07:24 Urine Color Yellow 06/12/19 10:21 Urine Appearance Clear (Clear) 06/12/19 10:21 Urine pH 5.5 (4.5-7.5) 06/12/19 10:21 Ur Specific [place] 1.012 (1.000-1.030) 06/12/19 10:21 Urine Protein Negative (Negative) 06/12/19 10:21 Urine Glucose (UA) Negative (Negative) 06/12/19 10:21 Urine Ketones Negative (Negative) 06/12/19 10:21 Urine Nitrite Negative (Negative) 06/12/19 10:21 Ur Leukocyte Esterase Negative (Negative) 06/12/19 10:21 Blood Type A Positive 06/13/19 09:08 Antibody Screen NEGATIVE 06/13/19 09:08 Electrocardiogram Date: 07/06/19 Normal sinus rhythm, rate 72 bpm Nonspecific T wave abnormality Abnormal ECG When compared with ECG of 12-SEP-2017 11:05, Nonspecific T wave abnormality, improved in Inferior leads Confirmed by Rj Nagy ([id number]) on 06/05/2019 1:15:47 PM Chest X-Ray Date: 06/05/19 FINDINGS: The heart is normal in size. No pleural effusions. No pneumothorax. The left lung is clear. Small focal density at the right lung base is likely due to the overlapping ribs. Otherwise, the right lung is clear. Focal defect within the humeral head with associated fragmentation. This may be due to old trauma. IMPRESSION: 1. Small focal density within the right lung base is likely due to the overlapping ribs. However, follow-up PA and lateral views of the chest with shallow oblique views are recommended to exclude the possibility of a pulmonary abnormality. 2. Focal defect within the humeral head with associated fragmentation. This is likely due to old trauma.
[2019-06-13] MEDS ORDERED: ATROPINE SULFATE 0.1 MG/ML 10ML SYR IV PRN (10:55)
[2019-06-13] MEDS ORDERED: ONDANSETRON INJ 2 MG/ML 2 ML VIAL IV PRN (10:55)
[2019-06-13] MEDS ORDERED: ePHEDrine sulfate 50 MG/ML AMP IV PRN (10:55)
[2019-06-13] MEDS ORDERED: MIDAZOLAM HCL 1 MG/ML 2ML VIAL ONE (12:00)
[2019-06-13] MEDS ORDERED: ONDANSETRON INJ 2 MG/ML 2 ML VIAL ONE (12:00)
[2019-06-13] MEDS ORDERED: PROPOFOL IV EMULSION 10 MG/ML 20 ML VIAL IV ONE (12:00)
[2019-06-13] MEDS ORDERED: fentaNYL citrate 100 MCG/2 ML VIAL ONE (12:00)
[2019-06-13] MEDS ORDERED: DEXAMETHASONE SOD INJ 4 MG/ML VIAL ONE (12:00)
[2019-06-13] MEDS ORDERED: LIDOCAINE HCL 2% 2 ML VIAL/AMP(20MG/ML) INFIL ONE (12:00)
[2019-06-13] MEDS ORDERED: NEOSTIGMINE METHYLSULFATE 5 MG/5 ML SYR ONE (12:00)
[2019-06-13] MEDS ORDERED: GLYCOPYRROLATE 0.2 MG/ML VIAL ONE ×2 (12:00→13:17)
[2019-06-13] MEDS ORDERED: HEPARIN (PORCINE) 1000 UNIT/ML 10 ML (CATH LAB USE ONLY) ONE (12:01)
[2019-06-13] MEDS ORDERED: BUPIVACAINE 0.5 % 5 MG/1 ML MPF 30ML VIAL ONE (12:01)
[2019-06-13] MEDS ORDERED: CEFAZOLIN 250 MG/ML 1 GM VIAL ONE (12:01)
[2019-06-13] MEDS ORDERED: LARYING-O-JET KIT (LTA) ONE (12:08)
[2019-06-13] MEDS ORDERED: PHENYLEPHRINE 100MCG/ML 5ML SYR ONE (12:55)
[2019-06-13] MEDS ORDERED: ROCURONIUM BROMIDE 10 MG/ML 5 ML VIAL ONE (12:55)
--- NOTE | 2019-06-13 13:30 | Post Operative Brief Note ---
Immediate Post Op Note v1 Date of Surgery June 13, 2019 Pre & Post Diagnosis Operation Date: 06/13/19 12:55 Pre-Op Diagnosis: Dilated Appendix, Right lower quadrant abdominal pain Post-Op Diagnosis: Dilated Appendix, Right lower quadrant abdominal pain Procedure Operation Date: 06/13/19 12:55 Actual Procedures p Laparoscopic Appendectomy(Not Applicable) - Russ Brambila MD Surgeon Russ Brambila MD Children[employer] Book Author Samira Sanchez PA-C Estimated Blood Loss 5 Findings Consistent with Post-Op Diagnosis Specimens Appendix Drains Gibbons Catheter ([id number]) Anesthesia Type General Complications none
[2019-06-13] MEDS: fentaNYL citrate 100 MCG/2 ML VIAL IV PRN ×2 (14:18→14:23)
--- NOTE | 2019-06-13 14:35 | Anesthesiology Progress Note ---
Date of Service June 13, 2019 Anesthesia Post Procedure Vital Signs Vital Signs: Temp Pulse Pulse Pulse Resp BP BP 06/13/19 14:25 66 16 156/67 H 06/13/19 14:15 75 16 171/97 H 06/13/19 14:05 68 12 153/72 H 06/13/19 13:55 71 12 146/76 H 06/13/19 13:46 97.7 F 73 12 151/76 H 06/13/19 11:15 98.8 F 72 18 158/79 H 06/13/19 07:00 98.2 F 60 19 169/70 H 06/12/19 22:55 98.1 F 64 18 130/74 06/12/19 18:20 98.2 F 62 17 178/75 H 06/12/19 16:49 65 17 146/71 H Pulse Ox 06/13/19 14:25 99 06/13/19 14:15 99 06/13/19 14:05 100 06/13/19 13:55 100 06/13/19 13:46 100 06/13/19 11:15 95 06/13/19 07:00 96 06/12/19 22:55 95 06/12/19 18:20 95 06/12/19 16:49 97 Pain Intensity Right Abdomen: Pain Intensity: 7 Transfer of Care Handoff Completed per policy Notes Mental Status: alert / awake / arousable and participated in evaluation Patient Amnestic to Procedure: Yes Nausea / Vomiting: adequately controlled Pain: adequately controlled Airway Patency, RR, SpO2: stable & adequate BP & HR: stable & adequate Hydration State: stable & adequate Anesthetic Complications: no major complications apparent and Pt Satisfied with anesthetic care
[2019-06-13] MEDS ORDERED: OXYCODONE/ACETAMINOPHEN 5mg/325mg TAB PO PRN (15:33)
[2019-06-13] MEDS ORDERED: MoRPHine SULFATE 4 MG/ML 1 ML CARP\\VIAL IV PRN (15:33)
[2019-06-13] MEDS: DOCUSATE SODIUM 100 MG CAP PO SCH ×2 (16:39→20:41)
[2019-06-13] MEDS: POLYETHYLENE (MIRALAX) 17 GM PACK PO SCH (16:43)
--- NOTE | 2019-06-13 23:37 | Operative Report ---
DATE OF OPERATION: 06/13/2019 PREOPERATIVE DIAGNOSIS: Dilated appendix with right lower quadrant pain. POSTOPERATIVE DIAGNOSIS: Dilated appendix with right lower quadrant pain. PROCEDURE: Laparoscopic appendectomy. SURGEON: Russ Brambila MD FLAME CUTTING MACHINE OPERATOR HELPER: Samira Sanchez PA-C FINDINGS: The appendix was firm and mildly dilated. There were no adhesions. There was no evidence of perforation or abscess. The uterus and ovaries were surgically absent. There was very little in the way of adhesion. The visible bowel wall appeared normal. There was no evidence of a Meckel's diverticulum. TECHNIQUE: The patient was given a general anesthetic and the area was prepped and draped in the usual sterile fashion. A transverse incision was made below the umbilicus, carried down through the subcutaneous tissue to the fascia which was grasped with 2 Delmi clamps and incised between. The peritoneum was identified, incised, and introducer was placed bluntly. The abdomen was then insufflated to a pressure of 15 mmHg with carbon dioxide. The lower midline introducer was placed under direct vision through a small skin incision. Traction was placed medially on the cecum. The appendix was easily seen. The left lower quadrant introducer was then placed under direct vision through a small skin incision. Traction was placed anteriorly on the appendix and the mesoappendix was away from the base of the appendix using blunt dissection. The mesoappendix was divided using the Endo-KRISTOPHER stapler. There was a small area of oozing that was easily controlled with cautery. The appendix was then further elevated. There was a small remaining area of mesoappendix that was then away from the base of the appendix and divided using the Endo-KRISTOPHER as well. The appendix was then amputated using the Endo-KRISTOPHER. The appendix was placed into an Endobag and brought out through the left lower quadrant introducer site. That introducer was replaced. The right lower quadrant was irrigated and the irrigation was removed. The staple lines were inspected. There was no oozing or bleeding. The right lower quadrant was again irrigated and the irrigation removed. Any irrigation that entered the pelvis and the right upper quadrant was also removed. Gas was allowed to escape and the introducers were removed. The fascia of the umbilical and in the left lower quadrant introducer sites was closed with interrupted 0 Vicryl and the skin of all the incisions was closed with 4-0 Monocryl in either an interrupted or running subcuticular fashion. The skin was anesthetized with 0.5% Marcaine. The skin was cleansed, dried, benzoin placed, Steri-Strips applied. The estimated blood loss was 5 mL. Sponge, needle, and instrument counts were correct prior to closure. The patient tolerated the surgical procedure without complication and was transferred to recovery. I attest to the content of the Intraoperative Record and any orders documented therein. Any exception s are noted below.
[2019-06-14] MEDS: CIPROFLOXACIN 400 MG/200 ML BAG IV SCH (04:32)
[2019-06-14] MEDS: SODIUM CHLORIDE 0.9% 1000ML 1,000 ML IV SCH (04:32)
[2019-06-14] MEDS: metroNIDAZOLE 500 MG/100 ML BAG IV SCH (04:37)
[2019-06-14] MEDS: LEVOTHYROXINE SODIUM 100 MCG TABLET PO SCH (04:40)
--- NOTE | 2019-06-14 08:14 | Anesthesiology Progress Note ---
Date of Service June 14, 2019 Anesthesia Post Procedure Vital Signs Vital Signs: Temp Pulse Pulse Resp BP Pulse Ox 06/14/19 07:25 36.8 C 76 18 164/80 H 98 06/14/19 03:11 36.6 C 65 16 141/64 H 91 06/13/19 22:19 36.9 C 75 16 141/67 H 94 06/13/19 19:28 36.7 C 77 16 125/78 92 06/13/19 18:14 36.9 C 81 16 138/64 94 06/13/19 17:06 36.7 C 80 16 154/73 H 97 06/13/19 16:15 36.6 C 73 16 154/70 H 95 06/13/19 15:45 36.5 C 72 16 162/78 H 93 06/13/19 15:15 36.5 C 78 18 179/73 H 96 06/13/19 14:59 36.8 C 67 19 167/68 H 96 06/13/19 14:48 36.8 C 71 17 157/73 H 99 06/13/19 14:35 36.8 C 60 16 165/68 H 99 06/13/19 14:25 66 16 156/67 H 99 06/13/19 14:15 75 16 171/97 H 99 06/13/19 14:05 68 12 153/72 H 100 06/13/19 13:55 71 12 146/76 H 100 06/13/19 13:46 36.5 C 73 12 151/76 H 100 06/13/19 11:15 37.1 C 72 18 158/79 H 95 Pain Intensity Right Abdomen: Pain Intensity: 7 Bilateral Abdomen: Pain Intensity: 3 Notes Mental Status: alert / awake / arousable and participated in evaluation Patient Amnestic to Procedure: Yes Nausea / Vomiting: adequately controlled Pain: adequately controlled Airway Patency, RR, SpO2: stable & adequate BP & HR: stable & adequate Hydration State: stable & adequate Anesthetic Complications: no major complications apparent and Pt Satisfied with anesthetic care
--- NOTE | 2019-06-14 08:34 | Surgery Progress Note ---
Date of Service June 14, 2019 Assessment & Plan (1) RLQ abdominal pain: POD # 1 s/p laparoscopic appendectomy -vitals stable - preop pain resolved - minimal post op pain Plan: Discharge home discharge instructions reviewed Continue home Toradol prn pain f/u surgical office in [address] Brambila has seen and examined patient. Agrees with above. Subjective feeling good today preoperative back and RLQ abdominal pain has resolved no n/v tolerated regular diet urinating okay ready to go home Physical Exam Constitutional: WD/WN, vitals as above no acute distress Respiratory: no respiratory distress and no labored breathing Gastrointestinal (Abdomen): Inspection/Auscultation: abdomen normal to inspection; abdomen not distended Percussion/Palpation: + abdomen tender and abdomen soft; no guarding and abdomen not rigid Skin: no rashes, warm and dry + incision (covered with steri strips, clean/dry/intact) Psychiatric: A+Ox3, euthymic affect Results & Data Vital Signs (Past 12 Hours) Vital Signs Temp Pulse Pulse Resp BP Pulse Ox 06/14/19 07:25 36.8 C 76 18 164/80 H 98 06/14/19 03:11 36.6 C 65 16 141/64 H 91 06/13/19 22:19 36.9 C 75 16 141/67 H 94 Laboratory Results 06/13/19 06/13/19 Range/Units 13:47 09:08 POC Glucose 75 (70-99) Blood Type A Positive Antibody Screen NEGATIVE
[2019-06-14] MEDS: FLUTICASONE/SALMETEROL (ADVAIR) 500/50 INH 14 PUFF INH SCH (08:37)
[2019-06-14] MEDS: DOCUSATE SODIUM 100 MG CAP PO SCH (08:38)
[2019-06-14] MEDS: POLYETHYLENE (MIRALAX) 17 GM PACK PO SCH (08:39)
[2019-06-14] MEDS: HYDROCORTISONE SOD 50 MG in SYRINGE 0 ML IV SCH (08:39)
[2019-06-14] MEDS: ATENOLOL 25 MG TABLET PO SCH (08:39)
[2019-06-14] MEDS ORDERED: SPIRONOLACTONE 25 MG TAB PO SCH (09:00)
--- NOTE | 2019-06-17 07:37 | Discharge Summary ---
Date of Service June 17, 2019 Admission HPI Per Admitting Provider This is a 73-year-old female who presented to the emergency room with a complaint of pain that began in the right lower side of her back and then radiated around to the right lower lateral abdomen. The patient states that the pain began about 2 days ago. She has chronic lower back pain but this discomfort seemed to be different than what she normally experiences. It radiated around to her abdomen after about 24 hours and is now located in both areas. She had some nausea but did not vomit. She was seen in the doctor's office yesterday and had a temperature of 99. She otherwise had no fever to her knowledge. She was hospitalized for an ERCP for recurrent primary common duct sludge and stones after having had a cholecystectomy and was discharged 1 week ago. She stated she has not had a bowel movement since. She has no dysuria or hematuria. She has no history of nephrolithiasis. She is never had pain similar to this in the past. Principal Diagnosis RLQ abdominal pain Discharge Data Allergies Allergy/AdvReac Type Severity Reaction Status Date / Time gabapentin Allergy Mild DELIRIUM Verified 06/12/19 11:53 amoxicillin Allergy Unknown SEVERE Verified 06/12/19 11:53 RHEUMATOID ARTHRITIC SYMPTOMS clavulanic acid Allergy Unknown SEVERE Verified 06/12/19 11:53 RHEUMATOID ARTHRITIC SYMPTOMS Gold Salts Allergy Unknown RIDAURA Verified 06/12/19 11:53 (AURANOFIN) Sulfa (Sulfonamide AdvReac Unknown "give me Verified 06/12/19 11:53 Antibiotics) anxiety" Remicade Allergy Unknown Unknown Uncoded 06/12/19 11:53 Ridaura CAPS Allergy Unknown Unknown Uncoded 06/12/19 11:53 Consultations 06/12/19 14:18 ED Decision to Admit Stat Procedures Performed Operation Date: 06/13/19 12:55 Actual Procedures p Laparoscopic Appendectomy(Not Applicable) - Russ Brambila MD Ordered Studies 06/12/19 09:54 CT abd pelvis IV con only Stat Hospital Course (1) RLQ abdominal pain: Patient was evaluated in the emergency department and found to have minimal RLQ abdominal pain at time of evaluation. Her CT scan showed dilated appendix however no significant periappendiceal inflammation. CT scan also showed significant stool burden throughout the colon and she hasnt had a bowel movement in 1 week. Laparoscopic appendectomy vs conservative approach with IV antibiotics were discussed. She preferred admission with IV antibiotics first and bowel prep (enema) to see if her pain improved. HD # 1 , vitals stable, afebrile, no leukocytosis. Pain persisted with no change despite IV abx therapy. She was consented for laparoscopic appendectomy by Dr. Brambila. Patient found to have normal look appendix. Patient tolerated procedure well and was transferred back to medical/surgical floor for post op care. IV fluids continued, IV abx continued, diet advanced as tolerated, activity as tolerated. POD # 1 s/p laparoscopic appendectomy vitals stable, preop back and RLQ abdominal pain resolved. Minimal post op pain. Patient was passing flatus and tolerating diet. Albaro discharged home on HD # 2 and POD # 1 in stable condition. Total Time Total Time Spent Total Time Spent (In Minutes): 30 Total Time Includes: Examination of the Patient, Discharge Planning and Medication Reconciliation Discharge Plan Discharge Items Patient Disposition: Home - Self-Care Reason For Visit: DILATED APPENDIX, RLQ ABD PAIN Discharge Diagnosis: same Discharge Goals: Decrease discomfort Activity: Per 'Additional Instructions' section Non-emergency contact: Primary Care Provider and Surgeon Call non-emergency contact if: your symptoms worsen, your pain is not controlled, your pain is unusual for you, you have a fever, your temperature is above 101, your wound has increased redness, your wound has increased drainage and your wound pain has increased Follow-up/Referrals: Chad Wilder MD [Primary Care Provider] - Diet: Regular Addtl Provider Instructions: Post-Surgical ~Discharge Instructions Activity Recommendations: - lifting limitation: (10 pounds for 2 weeks), - exercise/sex/sports limit: (nonstrenuous for 2 weeks), - driving or machine use limit: (none for 1 week), - Shower/bathe limit: (may shower beginning tomorrow) Diet: - Resume previous diet SPECIAL CARE INSTRUCTIONS: - May shower in 24 hours. Let water run over area and pat dry. - Leave steri strips on for one week. - Call the surgeon's office with any questions or concerns - - (ex. temperature higher than 101 degrees F, excessive bleeding or pain). MEDICATIONS: - Resume previous medications unless instructed otherwise by your surgeon. - Can take extra strength Tylenol as needed for pain - Ibuprofen 600 mg every 6 hours with food - May resume your Tramadol for pain FOLLOW UP VISIT: - If not already scheduled, please call the office to schedule a two week follow-up appointment. Office number Prescriptions: Continued albuterol sulfate [Ventolin HFA] 90 mcg/actuation HFA aerosol inhaler 2 puffs INH Q4H PRN (Reason: Wheezing) RF: 0 ascorbate calcium (vitamin C) 500 mg tablet 500 mg PO QAM RF: 0 atenolol [Tenormin] 25 mg tablet 25 mg PO QAM RF: 0 cyanocobalamin (vitamin B-12) 1,000 mcg capsule 1,000 mcg PO QAM RF: 0 fluticasone propion-salmeterol [Advair Diskus] 500-50 mcg/dose blister with device 1 inha INH BID RF: 0 levalbuterol HCl 0.63 mg/3 mL solution for nebulization 0.63 mg INH QID PRN (Reason: Wheezing) RF: 0 methylprednisolone 4 mg tablet 4 mg PO QAM RF: 0 spironolactone 25 mg tablet 25 mg PO DAILY RF: 0 ursodiol 300 mg capsule 300 mg PO BID RF: 0 hydroxychloroquine [Plaquenil] 200 mg tablet 300 mg PO QAM RF: 0 diclofenac sodium [Voltaren] 1 % gel 2 gm TOP .COMPLEX PRN (Reason: Pain) RF: 0 tramadol 50 mg tablet 50 mg PO Q8H PRN (Reason: pain) Qty: 90 RF: 1 sodium chloride 1 gram tablet 1,000 mg PO BID RF: 0 biotin 5,000 mcg tablet, sublingual 5,000 mcg SL QAM RF: 0 dicyclomine 10 mg capsule 10 mg PO TID RF: 0 Cholestyramine Light 4 gram powder in packet 4 gm PO .COMPLEX PRN (Reason: Diarrhea) RF: 0 gentamicin sulfate (PF) 60 mg/6 mL solution 60 mg inhalation .COMPLEX PRN (Reason: Wheezing) RF: 0 levothyroxine 100 mcg capsule 100 mcg PO QAM RF: 0 ranitidine HCl 150 mg tablet 150 mg PO BID Qty: 60 RF: 5 Stand-Alone Forms: [employer], Op[facility] [employer]/Other Patient Handouts: Surgery Prevent DVT After, Appendectomy Laparoscopic Dc Discharge Orders: Discharge Order (Routine); Ordered 06/14/19 Ordered By: Samira Sanchez Admission Data Admit Date/Time: 06/12/19 16:01 Attending Provider: Russ Brambila Admit Provider: Russ Brambila Primary Care Provider: Chad Wilder Other Providers: Russ Brambila Service: Surgical Services Other Interventions: Discharge Summary Assessment (RN) Last Done: 06/14/19 09:32 Pending Studies at Discharge: Yes (appendix pathology, will be reviewed at follow up visit) DC Date/Time DO NOT enter until pt leaves facility: 06/14/19 11:16
== END 2019-06-14 11:16 | disposition home or self-care (01) ==
LOC: ED 09:20 → 3W 09:20

== ENCOUNTER 2021-09-02 08:05 | Inpatient (IN) ==
[2021-09-02 08:39] LABS: Basophils # (auto) 0.05 K/uL (0-0.2); Basophils % (auto) 0.3 %; Eosinophils # (auto) 0.09 K/uL (0-0.5); Eosinophils % (auto) 0.5 %; Hematocrit (blood only) 34.2 % (37-47); Hemoglobin 11.5 g/dL (12.0-16.0); Immature Granulocytes % (auto) 0.6 %; Lymphocytes # (auto) 1.52 K/uL (1.2-3.4); Mean Corpuscular Hemoglobin 30.7 pg (25-34); Mean Corpuscular Hgb Conc 33.6 g/dL (32-36); Mean Corpuscular Volume 91.2 fL (80-100); Mean Platelet Volume 9.4 fL (7.4-10.4); Monocytes # (auto) 1.86 K/uL (0.11-0.59); Neutrophils # (auto) 13.36 K/uL (1.4-6.5); Neutrophils % (auto) 78.6 %; Platelet Count 461 K/uL (130-400); RDW Coefficient of Variation 14.4 % (11.5-14.5); RDW Standard Deviation 48.1 fL (36.4-46.3); Red Blood Count 3.75 M/uL (4.2-5.4); White Blood Count 16.98 K/uL (4.8-10.8)
--- NOTE | 2021-09-02 08:48 | XRay Report ---
XR chest 1V portable CLINICAL HISTORY: Atypical chest pain. COMPARISON STUDY: Chest radiograph January 09, 2020. FINDINGS: Lung volumes are normal. There is no pneumothorax. Interstitial thickening is noted with Ke r[place] B-lines. There are suspected trace bilateral pleural effusions. Slight enlargement of the cardia c silhouette is noted. Medial left basilar density is noted. IMPRESSION: 1. Mild interstitial pulmonary edema with suspected trace bilateral pleural effusions. 2. Medial left basilar density. A hiatal hernia is favored. Airspace opacity or a pulmonary lesion ar e considered less likely however follow-up PA and lateral radiograph is recommended. ACT 112: Negative or not required by law. Electronically signed by: Jonathan Carreon M.D. 09/02/2021 8:47 AM
[2021-09-02 08:49] LABS: Partial Thromboplastin Ratio 0.9; Partial Thromboplastin Time 23.7 Seconds (21.0-31.0)
[2021-09-02] MEDS ORDERED: ASPIRIN CHEW 324 MG PO STA (08:51)
[2021-09-02] MEDS ORDERED: NITROGLYCERIN SL 0.4 MG/TAB TAB SL STA (08:51)
[2021-09-02 08:59] LABS: Albumin Level 3.6 gm/dl (3.4-5.0); BUN Creatinine Ratio 14.9 (10-20); Calcium 8.6 mg/dl (8.5-10.1); Creatinine Clr Calc Pharmacy 21.6 ml/min; Est GFR (African American) 30.6 ml/min; Est GFR (Non-African American) 26.4 ml/min; Potassium 4.4 mmol/L (3.5-5.1)
--- NOTE | 2021-09-02 09:06 | Emergency Department Note ---
History of Present Illness General Chief complaint: Chest Pain Stated complaint: chest pains, nausea, sweats Time Seen by Provider: 09/02/21 08:23 History of Present Illness Maximum Pain Intensity: 8 75-year-old female presents to the ED with a chief complaint of chest pain. The patient states that her symptoms started yesterday afternoon. It is on the left side of her chest and radiated to the back. It is constant in nature. Some associated nausea. No vomiting. No upper respiratory viral symptoms. Nothing makes it worse or better. She does report a little shortness of breath as well. Home Medications Medication Instructions Recorded Confirmed Type ascorbate calcium (vitamin C) 500 500 mg PO QAM 02/15/19 09/02/21 History mg tablet cyanocobalamin (vitamin B-12) 1,000 mcg PO QAM 02/15/19 09/02/21 History 1,000 mcg capsule levalbuterol HCl 0.63 mg/3 mL 0.63 mg INH QID PRN ml 02/15/19 09/02/21 History solution for nebulization (Xopenex) ursodiol 300 mg capsule 300 mg PO BID 02/15/19 09/02/21 History biotin 5,000 mcg sublingual tablet 5,000 mcg SL QAM 05/29/19 09/02/21 History docusate sodium 100 mg capsule 100 mg PO BID 09/17/19 09/02/21 History (Colace) psyllium husk 0.52 gram capsule 0.52 g PO BIDM 09/17/19 09/02/21 History (Metamucil) methylprednisolone 4 mg tablet 4 mg PO QAM tab 05/21/20 09/02/21 History hydroxychloroquine 200 mg tablet 200 mg PO QAM tab 11/16/20 09/02/21 History (Plaquenil) sennosides 8.6 mg tablet (Senokot) 8.6 mg PO HS PRN tab 11/16/20 09/02/21 History sodium chloride 1 gram tablet 1,000 mg PO QDD tab 11/18/20 09/02/21 History gentamicin sulfate (PF) 60 mg/6 mL 60 mg INHALATION UD PRN #45 ml 12/02/20 1 Rx intravenous solution spironolactone 25 mg tablet 25 mg PO QAM #90 tab 02/01/21 09/02/21 Rx gabapentin 100 mg capsule 100 mg PO BID #60 cap 02/26/21 09/02/21 Rx atenolol 25 mg tablet (Tenormin) 12.5 mg PO QAM #45 tab 04/05/21 09/02/21 Rx fluticasone 500 mcg-salmeterol 50 1 inh INH BID #3 inhaler 04/05/21 09/02/21 Rx mcg/dose blistr powdr for inhalation (Advair Diskus) levothyroxine 100 mcg tablet 100 mcg PO QAM #90 tab 04/16/21 09/02/21 Rx furosemide 20 mg tablet 10 mg PO QAM #45 tab 05/07/21 09/02/21 Rx tofacitinib 5 mg tablet (Xeljanz) 5 mg PO QAM 06/23/21 09/02/21 History albuterol sulfate 90 mcg/actuation 2 puff INH Q4H PRN #8.5 g 07/01/21 09/02/21 Rx aerosol inhaler (Ventolin HFA) tramadol 50 mg tablet 50 mg PO Q8H PRN #90 tab 08/10/21 09/02/21 Rx diclofenac sodium 1 % topical gel 2 g TOPICAL QID PRN 09/02/21 09/02/21 History (Voltaren Arthritis Pain) Allergies Allergy/AdvReac Type Severity Reaction Status Date / Time amoxicillin Allergy Intermediate SEVERE Verified 09/02/21 09:31 RHEUMATOID ARTHRITIC SYMPTOMS clavulanic acid Allergy Intermediate SEVERE Verified 09/02/21 09:31 RHEUMATOID ARTHRITIC SYMPTOMS iodine Allergy Intermediate Stage 1V Verified 09/02/21 09:31 kidney disease auranofin [From Ridaura] Allergy Mild Rash Verified 09/02/21 09:31 infliximab [From Remicade] Allergy Mild Rash Verified 09/02/21 09:31 Sulfa (Sulfonamide AdvReac Intermediate "give me Verified 09/02/21 09:31 Antibiotics) anxiety" Past Med/Surg History Medical History Choledocholithiasis Chronic kidney disease (CKD), stage III (moderate) Chronic kidney disease, stage 4 (severe) Hypertension Immunosuppression due to drug therapy Intractable nausea and vomiting Skin tear of lower leg without complication 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 Russ Brambila S/P YANIQUE-BSO Family History Aunt Breast cancer Father Myocardial infarction Family history of diabetes mellitus Brother Family history of diabetes mellitus Brother Family history of diabetes mellitus Other No family history of adverse response to anesthesia Denies family history of Ovarian cancer Prostate cancer Colorectal cancer Social History Smoking Status: Never smoker Second Hand Exposure: No (parents smoked); Hx Alcohol Use: No Hx Substance Use: No Preferred Language: [place] Communication Ability: Effective Visual Impairment: No Limitations Hearing Ability: Normal Stave Block Roller Required: No Beliefs That Will Affect Care: None marital status: Current Living Situation: Spouse and Family Current Living Situation Comment: Lives with and son current occupational status: retired How many Children do You have: 1 Feels Safe at Home: Yes Childhood Exposure to Second-Hand Smoke: Yes caffeine: Yes Dental Care, Regularly: Yes Physical Activity Frequency: 3-4 Times per Week Seatbelt Use: always Sunscreen Use: Yes Assistive Devices: Cane, Glasses and Nebulizer Review of Systems A total of 10 systems reviewed and were otherwise negative Physical Exam Vital Signs Vital Signs - 24 hr 09/02/21 08:06 09/02/21 08:09 09/02/21 08:30 Temperature 36 C L 36.9 C Temperature Source Temporal Artery Scan Oral Pulse Rate 73 Pulse Rate [Apical] 72 Respiratory Rate 18 18 Respiratory Effort / Characteristics Non-Labored Spontaneous Respiratory Depth Normal Blood Pressure 137/81 Blood Pressure [Right Arm] 158/90 H Blood Pressure Mean 99 Blood Pressure Mean [Right Arm] 112 Pulse Oximetry 98 96 Oxygen Delivery Method Room Air Room Air Room Air Sepsis Recent Fever Within 48 Hours No Sepsis New/Unexplained Change in Mental Status N/A Sepsis Action Taken by Nursing No Action Required CONSTITUTIONAL/VITAL SIGNS: Reviewed / noted above. GENERAL: Non-toxic in appearance. INTEGUMENTARY: Warm, dry, and [place]. HEAD: Normocephalic. EYES: without scleral icterus or trauma. ENT/OROPHARYNX: clear and moist. LYMPHADENOPATHY/NECK: Is supple without lymphadenopathy or meningismus. RESPIRATORY: Clear to auscultation bilaterally. No increased work of breathing. CARDIOVASCULAR: Regular rate and rhythm. GI/ABDOMEN: Soft and nontender. No organomegaly or pulsatile mass. EXTREMITIES: Warm and well perfused. BACK: No CVA tenderness. NEUROLOGICAL: Intact without focal deficits. PSYCHIATRIC: normal affect. MUSCULOSKELETAL: Normally developed with good muscle tone. TRIAGE NURSING DOCUMENTATION REVIEWED. Course Administered Medications Discontinued Medications Aspirin (Aspirin Chew 324 Mg) 324 mg PO NOW STA Stop: 09/02/21 08:52 Last Admin: 09/02/21 08:58 Dose: 324 mg Documented by: [id number] Nitroglycerin (Nitroglycerin Sl 0.4 Mg/Tab Tab) 0.4 mg SL NOW STA Stop: 09/02/21 08:52 Last Admin: 09/02/21 08:58 Dose: 0.4 mg Documented by: [id number] Medical Decision Making Differential Diagnosis The differential that was considered includes acute myocardial infarction, acute coronary syndrome, myocarditis, pericarditis, pericardial effusions /tamponade, esophageal perforation, thoracic aortic dissection, pulmonary embolism, pn eum[place], pneumothorax, pancreatitis, shingles, acute cholecystitis, perforated abdominal viscus. Medical Records Attestation: I reviewed the patient's medical records. Home Medications Current Medication List: was personally reviewed by me Laboratory Data Attestation: I reviewed the patient's lab results. Result diagrams: 09/02/21 08:25 09/02/21 08:25 Lab Results 09/02/21 09/02/21 09/02/21 Range/Units 08:25 08:25 08:25 WBC 16.98 H (4.8-10.8) K/uL RBC 3.75 L (4.2-5.4) M/uL Hgb 11.5 L (12.0-16.0) g/dL Hct 34.2 L (37-47) % MCV 91.2 (80-100) fL MCH 30.7 (25-34) pg MCHC 33.6 (32-36) g/dL RDW Std Deviation 48.1 H (36.4-46.3) fL RDW Coeff of Sue 14.4 (11.5-14.5) % Plt Count 461 H (130-400) K/uL MPV 9.4 (7.4-10.4) fL Immature Gran % (Auto) 0.6 % Neut % (Auto) 78.6 % Lymph % (Auto) 9.0 % [place] % (Auto) 11.0 % Eos % (Auto) 0.5 % Baso % (Auto) 0.3 % Neut # (Auto) 13.36 H (1.4-6.5) K/uL Lymph # (Auto) 1.52 (1.2-3.4) K/uL [place] # (Auto) 1.86 H (0.11-0.59) K/uL Eos # (Auto) 0.09 (0-0.5) K/uL Baso # (Auto) 0.05 (0-0.2) K/uL Immature Gran # (Auto) 0.10 H (0.00-0.02) K/uL APTT 23.7 (21.0-31.0) Seconds PTT Ratio 0.9 Sodium 131 L (136-145) mmol/L Potassium 4.4 (3.5-5.1) mmol/L Chloride 101 (98-107) mmol/L Carbon Dioxide 21 (21-32) mmol/L Anion Gap 9.0 (3-11) BUN 28 H (7-18) mg/dl Creatinine 1.85 H (0.6-1.2) mg/dl Est Cr Clr Drug Dosing 21.6 ml/min Est GFR ( Amer) 30.6 ml/min Est GFR (Non-Af Amer) 26.4 ml/min BUN/Creatinine Ratio 14.9 (10-20) Glucose 130 H (70-99) mg/dl Calcium 8.6 (8.5-10.1) mg/dl Total Bilirubin 0.6 (0.2-1) mg/dl AST 114 H (15-37) U/L ALT 23 (12-78) U/L Alkaline Phosphatase 87 (45-117) U/L Troponin I 21.400 H* (0-0.045) ng/ml Total Protein 7.4 (6.4-8.2) gm/dl Albumin 3.6 (3.4-5.0) gm/dl Globulin 3.8 (2.5-4.0) gm/dl Albumin/Globulin Ratio 1.0 (0.9-2) Lipase 287 (73-393) U/L COVID-19 Eval Order 09/02/21 Range/Units Unknown WBC (4.8-10.8) K/uL RBC (4.2-5.4) M/uL Hgb (12.0-16.0) g/dL Hct (37-47) % MCV (80-100) fL MCH (25-34) pg MCHC (32-36) g/dL RDW Std Deviation (36.4-46.3) fL RDW Coeff of Sue (11.5-14.5) % Plt Count (130-400) K/uL MPV (7.4-10.4) fL Immature Gran % (Auto) % Neut % (Auto) % Lymph % (Auto) % [place] % (Auto) % Eos % (Auto) % Baso % (Auto) % Neut # (Auto) (1.4-6.5) K/uL Lymph # (Auto) (1.2-3.4) K/uL [place] # (Auto) (0.11-0.59) K/uL Eos # (Auto) (0-0.5) K/uL Baso # (Auto) (0-0.2) K/uL Immature Gran # (Auto) (0.00-0.02) K/uL APTT (21.0-31.0) Seconds PTT Ratio Sodium (136-145) mmol/L Potassium (3.5-5.1) mmol/L Chloride (98-107) mmol/L Carbon Dioxide (21-32) mmol/L Anion Gap (3-11) BUN (7-18) mg/dl Creatinine (0.6-1.2) mg/dl Est Cr Clr Drug Dosing ml/min Est GFR ( Amer) ml/min Est GFR (Non-Af Amer) ml/min BUN/Creatinine Ratio (10-20) Glucose (70-99) mg/dl Calcium (8.5-10.1) mg/dl Total Bilirubin (0.2-1) mg/dl AST (15-37) U/L ALT (12-78) U/L Alkaline Phosphatase (45-117) U/L Troponin I (0-0.045) ng/ml Total Protein (6.4-8.2) gm/dl Albumin (3.4-5.0) gm/dl Globulin (2.5-4.0) gm/dl Albumin/Globulin Ratio (0.9-2) Lipase (73-393) U/L COVID-19 Eval Order Covid19 at [facility] Imaging Data Radiologist's Impression: Chest X-Ray 09/02/21 08:24 XR chest 1V portable CLINICAL HISTORY: Atypical chest pain. COMPARISON STUDY: Chest radiograph January 09, 2020. FINDINGS: Lung volumes are normal. There is no pneumothorax. Interstitial thickening is noted with [place] B-lines. There are suspected trace bilateral pleural effusions. Slight enlargement of the cardiac silhouette is noted. Medial left basilar density is noted. IMPRESSION: 1. Mild interstitial pulmonary edema with suspected trace bilateral pleural effusions. 2. Medial left basilar density. A hiatal hernia is favored. Airspace opacity or a pulmonary lesion are considered less likely however follow-up PA and lateral radiograph is recommended. ACT 112: Negative or not required by law. Electronically signed by: Jonathan Carreon M.D. 09/02/2021 8:47 AM ECG Data Attestation: I personally reviewed and interpreted this ECG as follows: Additional Comments: Lead EKG: Per my interpretation there is a normal sinus rhythm at a rate of 67. There are T wave inversions in the anterolateral leads concerning for ischemia. These are new compared to an EKG dated 06/05/2019. MDM Narrative 75-year-old female presents to the ED with a chief complaint of chest pain. Symptoms started yesterday. She has some associated nausea and shortness of breath. Her CBC and chemistry panel was unremarkable with the exception of an elevated BUN of 28 and creatinine of 1.85. EKG shows some new T wave inversions anterolaterally. Troponin is elevated at almost 22. The patient was given nitroglycerin sublingual and is some aspirin p.o. The patient did not have much relief of her chest pain with the nitroglycerin. I did speak with Dr. Nila Belcher from interventional cardiology. He is going to take the patient to the cardiac [facility] for evaluation. The patient will then be admitted. He states that the patient will be started on heparin once the patient gets to the [facility]. Impression & Plan Non-ST elevation (NSTEMI) myocardial infarction Discharge Plan Visit Data Chief Complaint: Chest Pain Stated Complaint: chest pains, nausea, sweats ED Provider: Collin Booker Discharge Problem: Non-ST elevation (NSTEMI) myocardial infarction Patient Disposition: Being Evaluated by Hospitalist Forms Stand Alone Forms: [facility] Prescriptions Prescriptions: No Action Xeljanz 5 mg tablet 5 mg PO QAM RF: 0 ascorbate calcium (vitamin C) 500 mg tablet 500 mg PO QAM RF: 0 cyanocobalamin (vitamin B-12) 1,000 mcg capsule 1,000 mcg PO QAM RF: 0 levalbuterol HCl [Xopenex] 0.63 mg/3 mL solution for nebulization 0.63 mg INH QID PRN (Reason: Wheezing) RF: 0 ursodiol 300 mg capsule 300 mg PO BID RF: 0 methylprednisolone 4 mg tablet 4 mg PO QAM RF: 0 hydroxychloroquine [Plaquenil] 200 mg tablet 200 mg PO QAM RF: 0 spironolactone 25 mg tablet 25 mg PO QAM Qty: 90 RF: 3 gabapentin 100 mg capsule 100 mg PO BID Qty: 60 RF: 11 fluticasone propion-salmeterol [Advair Diskus] 500-50 mcg/dose blister with device 1 inh INH BID Qty: 3 RF: 5 atenolol [Tenormin] 25 mg tablet 12.5 mg PO QAM Qty: 45 RF: 3 levothyroxine 100 mcg tablet 100 mcg PO QAM Qty: 90 RF: 3 furosemide 20 mg tablet 10 mg PO QAM Qty: 45 RF: 3 tramadol 50 mg tablet 50 mg PO Q8H PRN (Reason: Pain) Qty: 90 RF: 0 gentamicin sulfate (PF) 60 mg/6 mL solution 60 mg inhalation UD PRN (Reason: Nasal Congestion) Qty: 45 RF: 3 sodium chloride 1 gram tablet 1,000 mg PO QDD RF: 0 sennosides [Senokot] 8.6 mg tablet 8.6 mg PO HS PRN (Reason: Constipation) RF: 0 albuterol sulfate [Ventolin HFA] 90 mcg/actuation HFA aerosol inhaler 2 puff INH Q4H PRN (Reason: Wheezing) Qty: 8.5 RF: 5 biotin 5,000 mcg tablet, sublingual 5,000 mcg SL QAM RF: 0 docusate sodium [Colace] 100 mg Capsule 100 mg PO BID RF: 0 psyllium husk [Metamucil] 0.52 gram Capsule 0.52 g PO BIDM RF: 0 diclofenac sodium [Voltaren Arthritis Pain] 1 % gel 2 g TOPICAL QID PRN (Reason: Pain) RF: 0 Referrals Referrals: Francisco Velez DO [Primary Care Provider] -
[2021-09-02 09:19] LABS: Bilirubin,Total 0.6 mg/dl (0.2-1); Globulin 3.8 gm/dl (2.5-4.0); Total Protein 7.4 gm/dl (6.4-8.2); Troponin I 21.4 ng/ml (0-0.045)
[2021-09-02] MEDS ORDERED: Heparin IV Adult Wt-Based Standard WITH Bolus Protocol IV STA (09:41)
[2021-09-02] MEDS ORDERED: ONDANSETRON INJ 2 MG/ML 2 ML VIAL IV STA (09:47)
[2021-09-02] MEDS ORDERED: HEPARIN SOD (PORCINE) 1000 UNIT/ML IV ONE (09:57)
[2021-09-02] MEDS ORDERED: HEPARIN SODIUM/DEXTROSE 25,000 UNITS/500 ML BAG IV SCH (10:00)
[2021-09-02] MEDS ORDERED: NITROGLYCERIN SL 0.4 MG/TAB TAB SL PRN (10:09)
[2021-09-02] MEDS ORDERED: MoRPHine SULFATE 2 MG/ML CARP IV PRN (10:09)
[2021-09-02] MEDS ORDERED: POLYETHYLENE (MIRALAX) 17 GM PACK PO PRN (10:09)
[2021-09-02] MEDS ORDERED: ACETAMINOPHEN 325 MG TAB PO PRN (10:09)
[2021-09-02] MEDS ORDERED: ONDANSETRON INJ 2 MG/ML 2 ML VIAL IV PRN (10:09)
[2021-09-02] MEDS ORDERED: HEPARIN (PORCINE) 1000 UNIT/ML 10 ML (CATH LAB USE ONLY) ONE ×2 (10:16→11:44)
[2021-09-02] MEDS ORDERED: fentaNYL citrate 100 MCG/2 ML VIAL ONE (10:16)
[2021-09-02] MEDS ORDERED: niCARdipine HCL INJ 2.5 MG/ML 10 ML AMP ONE (10:16)
[2021-09-02] MEDS ORDERED: MIDAZOLAM HCL 1 MG/ML 2ML VIAL ONE (10:16)
[2021-09-02] MEDS ORDERED: NITROGLYCERIN/D5W 100MCG/ML 20ML SYR ONE (10:17)
--- NOTE | 2021-09-02 10:18 | History & Physical Report ---
Date of Service September 02, 2021 Assessment & Plan (1) Non-ST elevation (NSTEMI) myocardial infarction: Plan: Angelika is a 75-year-old female with a notable past medical history of hypertension, rheumatoid arthritis, degenerative disc disease who presented to [facility] on 09/02 for evaluation of chest pain, fatigue, and shortness of breath, subsequently found to have evidence of NSTEMI. She is hemodynamically stable. Concern for ACS / NSTEMI In the setting of approximately 1 day of chest pain, diaphoresis, nausea, and shortness of breath; also in the setting of significant life stress with 's cancer diagnosis Work-up as follows: ECG with evidence of anterolateral T wave inversions Initial troponin elevated to 21.4 Chest x-ray with mild bilateral opacities, possibly c/w pulmonary edema Ongoing chest pain, shortness of breath, and nausea Low-dose heparin with bolus initiated in the ER + aspirin 325 x 1 Cardiology consulted in ED, proceed for PCI -- appreciate insight and recomm endations moving forward post-PCI TTE ordered for after cath to evaluate post-infarction baseline Patient will likely require dual antiplatelet therapy, will await result of PCI from cardiology Initiate atorvastatin 80 Patient on atenolol, consider switching to metoprolol tartrate 12.5mg daily, carvedilol, or bisoprolol following PCI Nitro, morphine, ECG PRN w/ chest pain Chronic Medical Conditions Hypertension: Continue spironolactone, atenolol, Lasix. May require adjustment of these medications following PCI and initiation of different beta-lala. CKD3, Chronic Hyponatremia: Follows with nephrology. Hypertensive nephropathy. Continue salt tabs. Maintain close monitoring of BUN/creatinine following PCI, gentle hydration as needed Asthma: Stable, continue inhalers and nebulizers as needed Rheumatoid arthritis: Continue Plaquenil, methylprednisolone, Xeljanz Hypothyroidism: Continue levothyroxine Degenerative disc disease: Continue gabapentin, tramadol Code: FULL CODE - Discussed with patient. Dispo: PCU Diet: HH diet following PCI Consults: Cardiology PPX: SCDs (2) Shingles: (3) Hypertension: (4) Chronic kidney disease, stage 4 (severe): (5) GERD (gastroesophageal reflux disease): (6) Osteoporosis: (7) Hypertensive kidney disease with CKD stage III: (8) Immunosuppression due to drug therapy: (9) Disc degeneration, lumbar: (10) Hypothyroidism: (11) Sjogrens syndrome: (12) Asthma: (13) Rheumatoid arthritis: History of Present Illness Chief Complaint: chest pain Primary Care Provider: Francisco Velez DO Angelika is a 75-year-old female with a notable past medical history of hypertension, rheumatoid arthritis, degenerative disc disease who presented to [facility] on 09/02 for evaluation of chest pain, fatigue, and shortness of breath. Patient notes that her symptoms began yesterday around 1:30 PM and manifested as a dull, substernal chest pain that radiates to her back. It was pretty constant in character; however, it did grow worse as the day went on and into the night. It kept her up at night. She began to feel diaphoretic and nauseous. She also endorsed today feeling more short of breath. Because of all the symptoms, she decided to report to the emergency room for further evaluation. At the time my visitation, patient does report a 6 out of 10 substernal chest pain that is not improved since receipt of her nitroglycerin. She denies current shortness of breath. Does endorse a mild headache. Denies any nausea present. Patient does report that she and her family have been under significant stress at home. Her is currently battling advanced esophageal cancer. She de nies recent illnesses otherwise and before yesterday, was in her normal health. She denies any baseline chest pain or pressure with exertion. Denies any shortness of breath with exertion. Denies any orthopnea or paroxysmal nocturnal dyspnea. No history of heart disease known to her. She denies any tobacco use, alcohol use or recreational drug use. She has been taking her medications as prescribed. Medications were reviewed one by one with her. In the ER, patient was found to be hemodynamically stable but with chest pain. Her EKG demonstrated anterolateral T wave inversions. Her troponin was elevated to 21. She was also noted to have a mild leukocytosis. She was given aspirin 325, nitroglycerin, and started on heparin low-dose with bolus. Cardiology was consulted by the emergency physician, who subsequently prepared patient for PCI. Allergies Allergy/AdvReac Type Severity Reaction Status Date / Time amoxicillin Allergy Intermediate SEVERE Verified 09/02/21 09:31 RHEUMATOID ARTHRITIC SYMPTOMS clavulanic acid Allergy Intermediate SEVERE Verified 09/02/21 09:31 RHEUMATOID ARTHRITIC SYMPTOMS iodine Allergy Intermediate Stage 1V Verified 09/02/21 09:31 kidney disease auranofin [From Ridaura] Allergy Mild Rash Verified 09/02/21 09:31 infliximab [From Remicade] Allergy Mild Rash Verified 09/02/21 09:31 Sulfa (Sulfonamide AdvReac Intermediate "give me Verified 09/02/21 09:31 Antibiotics) anxiety" Home Medications Medication Instructions Recorded Confirmed Type ascorbate calcium (vitamin C) 500 500 mg PO QAM 02/15/19 09/02/21 History mg tablet cyanocobalamin (vitamin B-12) 1,000 mcg PO QAM 02/15/19 09/02/21 History 1,000 mcg capsule levalbuterol HCl 0.63 mg/3 mL 0.63 mg INH QID PRN ml 02/15/19 09/02/21 History solution for nebulization (Xopenex) ursodiol 300 mg capsule 300 mg PO BID 02/15/19 09/02/21 History biotin 5,000 mcg sublingual tablet 5,000 mcg SL QAM 05/29/19 09/02/21 History docusate sodium 100 mg capsule 100 mg PO BID 09/17/19 09/02/21 History (Colace) psyllium husk 0.52 gram capsule 0.52 g PO BIDM 09/17/19 09/02/21 History (Metamucil) methylprednisolone 4 mg tablet 4 mg PO QAM tab 05/21/20 09/02/21 History hydroxychloroquine 200 mg tablet 200 mg PO QAM tab 11/16/20 09/02/21 History (Plaquenil) sennosides 8.6 mg tablet (Senokot) 8.6 mg PO HS PRN tab 11/16/20 09/02/21 History sodium chloride 1 gram tablet 1,000 mg PO QDD tab 11/18/20 09/02/21 History gentamicin sulfate (PF) 60 mg/6 mL 60 mg INHALATION UD PRN #45 ml 12/02/20 09/02/21 Rx intravenous solution spironolactone 25 mg tablet 25 mg PO QAM #90 tab 02/01/21 09/02/21 Rx gabapentin 100 mg capsule 100 mg PO BID #60 cap 02/26/21 09/02/21 Rx atenolol 25 mg tablet (Tenormin) 12.5 mg PO QAM #45 tab 04/05/21 09/02/21 Rx fluticasone 500 mcg-salmeterol 50 1 inh INH BID #3 inhaler 04/05/21 09/02/21 Rx mcg/dose blistr powdr for inhalation (Advair Diskus) levothyroxine 100 mcg tablet 100 mcg PO QAM #90 tab 04/16/21 09/02/21 Rx furosemide 20 mg tablet 10 mg PO QAM #45 tab 05/07/21 09/02/21 Rx tofacitinib 5 mg tablet (Xeljanz) 5 mg PO QAM 06/23/21 09/02/21 History albuterol sulfate 90 mcg/actuation 2 puff INH Q4H PRN #8.5 g 07/01/21 09/02/21 Rx aerosol inhaler (Ventolin HFA) tramadol 50 mg tablet 50 mg PO Q8H PRN #90 tab 08/10/21 09/02/21 Rx diclofenac sodium 1 % topical gel 2 g TOPICAL QID PRN 09/02/21 09/02/21 History (Voltaren Arthritis Pain) Past Med/Surg History Medical History Choledocholithiasis Chronic kidney disease (CKD), stage III (moderate) Chronic kidney disease, stage 4 (severe) Hypertension Immunosuppression due to drug therapy Intractable nausea and vomiting Skin tear of lower leg without complication 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 Russ Brambila S/P [facility] Family History Aunt Breast cancer Father Myocardial infarction Family history of diabetes mellitus Brother Family history of diabetes mellitus Brother Family history of diabetes mellitus Other No family history of adverse response to anesthesia Denies family history of Ovarian cancer Prostate cancer Colorectal cancer Social History Smoking Status: Never smoker Second Hand Exposure: No (parents smoked); Hx Alcohol Use: No Hx Substance Use: No Preferred Language: Swedish Communication Ability: Effective Visual Impairment: No Limitations Hearing Ability: Normal Bench Tool Maker Required: No Beliefs That Will Affect Care: None marital status: Current Living Situation: Spouse and Family Current Living Situation Comment: Lives with and son current occupational status: retired How many Children do You have: 1 Feels Safe at Home: Yes Childhood Exposure to Second-Hand Smoke: Yes caffeine: Yes Dental Care, Regularly: Yes Physical Activity Frequency: 3-4 Times per Week Seatbelt Use: always Sunscreen Use: Yes Assistive Devices: Cane, Glasses and Nebulizer Review of Systems Review of Systems: Constitutional: Denies fever, chills, malaise, weight change Eyes: Denies double vision, vision change, eye pain ENT: Denies ear pain, sore throat, sinus pain Cardiovascular: endorses chest pain /, chest pressure, swelling in her legs has gone down Respiratory: Denies current shortness of breath; no cough, sputum production, difficulty breathing Gastrointestinal: Denies abdominal pain, nausea, vomiting, constipation, diarrhea Genitourinary: Denies urinary symptoms including dysuria Musculoskeletal: Denies weakness, muscle aches/pain, joint aches/pain Integumentary:Denies rash, lesions, bruising Neurological: Mild CARMONA right now. Physical Exam Physical Exam: General: Tired but overall well-appearing 75-year-old female who is sitting back in her hospital bed, relaxed upon my arrival. She is in no acute distress. HEENT: NCAT. Eyes - Sclera are white, anicteric, and without injection.Mouth - MMM with no tonsillar edema or exudates. No jugular venous distention. Cardiac: Normal rate and regular rhythm; S1 and S2 present with no murmurs, rubs, or gallops. Pulmonary: Good respiratory effort with symmetric expansion of the chest. No use of accessory muscles. Lungs were clear to auscultation bilaterally with no crackles or wheezes. Abdominal: Abdomen was soft, nondistended, and non-tender to palpation. No hepatomegaly or splenomegaly. Extremities: Upper and lower extremities are warm and well perfused. Radial and dorsalis pedis pulses were 2+ b/l. Capillary refill assessed in UE was < 3 sec. No appreciable pitting edema in the lower extremities bilaterally. Results & Data Results & Data ([facility]) Vital Signs (Past 12 Hours) Vital Signs Temp Pulse Pulse Resp BP BP Pulse Ox 09/02/21 10:06 36.8 C 78 149/85 H 97 09/02/21 08:30 36.9 C 72 18 158/90 H 96 09/02/21 08:09 36 C L 73 18 137/81 98 Code Status & VTE Plan VTE Prophylaxis Plan VTE Prophylaxis will be ordered: Yes Supervising Physician Co-Signing Physician Notes Dr. Rankin was resident physician during care of patient. I separately evaluated patient for horvath portions of the history and the exam. I was present during the critical portion of medical decision making, and I discussed the case with the resident. I generally agree with the findings and plan. Unstable angina going to [employer] with active chest pain and dynamic EKG changes, elevated troponins. Underlying renal dysfunction peers near baseline, 1500 mL fluid restriction will consider liberalization as patient will have contrast from cardiac cath today. Continue home meds Resident Activity Tracking Resident Involvement: Resident Care Provided Care Provided: Adult Hospital Medicine
--- NOTE | 2021-09-02 10:59 | Billing Data ---
Date of Service September 02, 2021 Coding Level of Care Code 17484 Initial Inpt Care Lvl 3
[2021-09-02] MEDS ORDERED: ICU PROTOCOL FOR HYPERGLYCEMIA PRN (11:36)
[2021-09-02] MEDS ORDERED: EPTIFIBATIDE 2 MG/ML 10 ML VIAL (CATH LAB USE ONLY) IV ONE (11:41)
[2021-09-02] MEDS ORDERED: ADENOSINE IV SOLN 3 MG/ML 2 ML VIAL IV ONE (11:41)
--- NOTE | 2021-09-02 11:41 | Cardiac Catheterization ---
Cardiac Cath Procedure Full Procedure Date September 02, 2021 Pre-Procedure Diagnosis Pre-Procedure Diagnosis: Non STEMI (positive trops and typical angina) AUC Score AUC Score: 2 Post-Procedure Diagnosis Post-Procedure Diagnosis: Severe CAD (residual rca and circ) and Successful PCI Procedure(s) Performed Procedure(s) Performed: Coronary Angiography, PTCA and Drug Eluting Stent Debridging Machine Operator Nila Belcher MD Estimated Blood Loss Estimated Blood Loss: None Medication(s) Medication(s): Heprin, Integralin and adenosine Summary of Findings 3 vessel disease with acute occlusion of D1. significant LAD, rca and circ. Hemodynamics Rest Ao:: 134/87 Final Ao: 147/75 LV: not done Recommendations Recommendations: Management Recommendatons (Succsessful PCI of D1 and LAD with consideration of staged PCI of RCA and Circ) Radiation Exposure (mGy) 184 mGy Contrast (mls) 240 Fluids (cc crystalloids) Fluids (cc crystalloids): 554cc Procedural Complication(s) none I attest to the content of the Intraoperative Record and any orders documented therein. Any exceptions are noted below. ACC Data: Putty Mixer Cardiac Status Clinical evaluation leading to the procedure NSTEMI CAD Presenation: Non STEMI Anginal Classification: CCS IV Heart Failure: No Cardiogenic Shock within 24 Hours: No Cardiac Arrest within 24 Hours: No Imaging Studies Past 6 Months: No Stress Studies Past 6 Months: No Standard Exercise Test: No Stress Echocardiogram: No Stress Testing w/SPECT MPI: No Cardiac CTA: No STEMI OR Non-STEMI Symptom Onset Date: 09/01/21 Symptom Onset Time: 06:00 Thrombolytics: No Coronary Anatomy Left Main (% Stenosis): Normal LAD (% Stenosis): Mid (80% diffuse) D1 (% Stenosis): Ostial (100%) Circumflex (% Stenosis): Mid (80%) RCA (% Stenosis): Mid (70%) Diagnostic Physicians Name: Nila Belcher MD Closure Device Percutaneous Entry Location: Radial Closure Device: Radial Band Recommendations: Management Recommendatons (Succsessful PCI of D1 and LAD with consideration of staged PCI of RCA and Circ) PCI Indication: PCI for STEMI - Unstable First Noted: First EKG Lesion Segment Name: Mid LAD Culprit Artery: Yes Stenosis Prior to Rx (%): 80% Pre-Procedure JAILENE Flow: 3 Previously Treated Lesion: No Lesion Complexity: Non-High/Non-C Lesion Length (mm): 2.5x15mm and 2.5x18 mm VIKY overlapping in mid LAD Thrombus Present: Yes Bifurcation Lesion: No Guidewire Across Lesion: Yes Lesion #2 Segment Name: D1 Culprit Artery: Yes Stenosis Prior to Rx (%): 100 Pre-Procedure JAILENE Flow: 0 Previously Treated Lesion: No Lesion Complexity: Non-High/Non-C Lesion Length (mm): 2.5x30mm viky after predi with 2.0x20 ballon and post dil with 2.5x12 NC Thrombus Present: Yes Bifurcation Lesion: No Guidewire Across Lesion: Yes
[2021-09-02] MEDS ORDERED: EPTIFIBATIDE 0.75 MG/ML 75MG VIAL (CATH LAB USE ONLY) ONE (11:42)
[2021-09-02] MEDS ORDERED: CLOPIDOGREL BISULFATE 300 MG TAB ONE (11:43)
--- NOTE | 2021-09-02 11:45 | Critical Care Consultation ---
Date of Consultation September 02, 2021 Assessment & Plan (1) Non-ST elevation (NSTEMI) myocardial infarction: Angelika is a 75-year-old female with a notable past medical history of hypertension, rheumatoid arthritis, degenerative disc disease who presented to [facility] on 09/02 for evaluation of chest pain, fatigue, and shortness of breath, subsequently found to have evidence of NSTEMI. She is hemodynamically stable. Concern for ACS / NSTEMI In the setting of approximately 1 day of chest pain, diaphoresis, nausea, and shortness of breath; also in the setting of significant life stress with 's cancer diagnosis Work-up as follows: ECG with evidence of anterolateral T wave inversions Initial troponin elevated to 21.4 Chest x-ray with mild bilateral opacities, possibly c/w pulmonary edema Ongoing chest pain, shortness of breath, and nausea Low-dose heparin with bolus initiated in the ER + aspirin 325 x 1 Cardiology consulted in ED, proceed for PCI -- appreciate insight and recommendations moving forward post-PCI TTE ordered for after cath to evaluate post-infarction baseline Patient will likely require dual antiplatelet therapy, will await result of PCI from cardiology Initiate atorvastatin 80 Patient on atenolol, consider switching to metoprolol tartrate 12.5mg daily, carvedilol, or bisoprolol following PCI Nitro, morphine, ECG PRN w/ chest pain Chronic Medical Conditions Hypertension: Continue spironolactone, atenolol, Lasix. May require adjustment of these medications following PCI and initiation of different beta-lala. CKD3, Chronic Hyponatremia: Follows with nephrology. Hypertensive nephropathy. Continue salt tabs. Maintain close monitoring of BUN/creatinine following PCI, gentle hydration as needed Asthma: Stable, continue inhalers and nebulizers as needed Rheumatoid arthritis: Continue Plaquenil, methylprednisolone, Xeljanz Hypothyroidism: Continue levothyroxine Degenerative disc disease: Continue gabapentin, tramadol Code: FULL CODE - Discussed with patient. Dispo: PCU Diet: HH diet following PCI Consults: Cardiology PPX: SCDs (2) Shingles: (3) Hypertension: (4) Chronic kidney disease, stage 4 (severe): (5) GERD (gastroesophageal reflux disease): (6) Osteoporosis: (7) Hypertensive kidney disease with CKD stage III: (8) Immunosuppression due to drug therapy: (9) Disc degeneration, lumbar: (10) Hypothyroidism: (11) Sjogrens syndrome: (12) Asthma: (13) Rheumatoid arthritis: History of Present Illness History of Present Illness Angelika is a 75-year-old female with a notable past medical history of hypertension, rheumatoid arthritis, degenerative disc disease who presented to [facility] on 09/02 for evaluation of chest pain, fatigue, and shortness of breath. Patient notes that her symptoms began yesterday around 1:30 PM and manifested as a dull, substernal chest pain that radiates to her back. It was pretty constant in character; however, it did grow worse as the day went on and into the night. It kept her up at night. She began to feel diaphoretic and nauseous. She also endorsed today feeling more short of breath. Because of all the symptoms, she decided to report to the emergency room for further evaluation. At the time my visitation, patient does report a 6 out of 10 substernal chest pain that is not improved since receipt of her nitroglycerin. She denies current shortness of breath. Does endorse a mild headache. Denies any nausea present. Patient does report that she and her family have been under significant stress at home. Her is currently battling advanced esophageal cancer. She denies recent illnesses otherwise and before yesterday, was in her normal health. She denies any baseline chest pain or pressure with exertion. Denies any shortness of breath with exertion. Denies any orthopnea or paroxysmal nocturnal dyspnea. No history of heart disease known to her. She denies any tobacco use, alcohol use or recreational drug use. She has been taking her medications as prescribed. Medications were reviewed one by one with her. In the ER, patient was found to be hemodynamically stable but with chest pain. Her EKG demonstrated anterolateral T wave inversions. Her troponin was elevated to 21. She was also noted to have a mild leukocytosis. She was given aspirin 325, nitroglycerin, and started on heparin low-dose with bolus. Cardiology was consulted by the emergency physician, who subsequently prepared patient for PCI. Allergies Allergy/AdvReac Type Severity Reaction Status Date / Time amoxicillin Allergy Intermediate SEVERE Verified 09/02/21 09:31 RHEUMATOID ARTHRITIC SYMPTOMS clavulanic acid Allergy Intermediate SEVERE Verified 09/02/21 09:31 RHEUMATOID ARTHRITIC SYMPTOMS iodine Allergy Intermediate Stage 1V Verified 09/02/21 09:31 kidney disease auranofin [From Ridaura] Allergy Mild Rash Verified 09/02/21 09:31 infliximab [From Remicade] Allergy Mild Rash Verified 09/02/21 09:31 Sulfa (Sulfonamide AdvReac Intermediate "give me Verified 09/02/21 09:31 Antibiotics) anxiety" Home Medications Medication Instructions Recorded Confirmed Type ascorbate calcium (vitamin C) 500 500 mg PO QAM 02/15/19 09/02/21 History mg tablet cyanocobalamin (vitamin B-12) 1,000 mcg PO QAM 02/15/19 09/02/21 History 1,000 mcg capsule levalbuterol HCl 0.63 mg/3 mL 0.63 mg INH QID PRN ml 02/15/19 09/02/21 History solution for nebulization (Xopenex) ursodiol 300 mg capsule 300 mg PO BID 02/15/19 09/02/21 History biotin 5,000 mcg sublingual tablet 5,000 mcg SL QAM 05/29/19 09/02/21 History docusate sodium 100 mg capsule 100 mg PO BID 09/17/19 09/02/21 History (Colace) psyllium husk 0.52 gram capsule 0.52 g PO BIDM 09/17/19 09/02/21 History (Metamucil) methylprednisolone 4 mg tablet 4 mg PO QAM tab 05/21/20 09/02/21 History hydroxychloroquine 200 mg tablet 200 mg PO QAM tab 11/16/20 09/02/21 History (Plaquenil) sennosides 8.6 mg tablet (Senokot) 8.6 mg PO HS PRN tab 11/16/20 09/02/21 History sodium chloride 1 gram tablet 1,000 mg PO QDD tab 11/18/20 09/02/21 History gentamicin sulfate (PF) 60 mg/6 mL 60 mg INHALATION UD PRN #45 ml 12/02/20 09/02/21 Rx intravenous solution spironolactone 25 mg tablet 25 mg PO QAM #90 tab 02/01/21 09/02/21 Rx gabapentin 100 mg capsule 100 mg PO BID #60 cap 02/26/21 09/02/21 Rx atenolol 25 mg tablet (Tenormin) 12.5 mg PO QAM #45 tab 04/05/21 09/02/21 Rx fluticasone 500 mcg-salmeterol 50 1 inh INH BID #3 inhaler 04/05/21 09/02/21 Rx mcg/dose blistr powdr for inhalation (Advair Diskus) levothyroxine 100 mcg tablet 100 mcg PO QAM #90 tab 04/16/21 09/02/21 Rx furosemide 20 mg tablet 10 mg PO QAM #45 tab 05/07/21 09/02/21 Rx tofacitinib 5 mg tablet (Xeljanz) 5 mg PO QAM 06/23/21 09/02/21 History albuterol sulfate 90 mcg/actuation 2 puff INH Q4H PRN #8.5 g 07/01/21 09/02/21 Rx aerosol inhaler (Ventolin HFA) tramadol 50 mg tablet 50 mg PO Q8H PRN #90 tab 08/10/21 09/02/21 Rx diclofenac sodium 1 % topical gel 2 g TOPICAL QID PRN 09/02/21 09/02/21 History (Voltaren Arthritis Pain) Patient History Medical History Choledocholithiasis Chronic kidney disease (CKD), stage III (moderate) Chronic kidney disease, stage 4 (severe) Hypertension Immunosuppression due to drug therapy Intractable nausea and vomiting Skin tear of lower leg without complication 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 Russ Brambila S/P [facility] Family History Aunt Breast cancer Father Myocardial infarction Family history of diabetes mellitus Brother Family history of diabetes mellitus Brother Family history of diabetes mellitus Other No family history of adverse response to anesthesia Denies family history of Ovarian cancer Prostate cancer Colorectal cancer Social History Smoking Status: Never smoker Second Hand Exposure: No (parents smoked); Hx Alcohol Use: No Hx Substance Use: No Preferred Language: Marshallese Communication Ability: Effective Visual Impairment: No Limitations Hearing Ability: Normal Welt Sole Layer Required: No Beliefs That Will Affect Care: None marital status: Current Living Situation: Spouse and Family Current Living Situation Comment: Lives with and son current occupational status: retired How many Children do You have: 1 Feels Safe at Home: Yes Childhood Exposure to Second-Hand Smoke: Yes caffeine: Yes Dental Care, Regularly: Yes Physical Activity Frequency: 3-4 Times per Week Seatbelt Use: always Sunscreen Use: Yes Assistive Devices: Cane, Glasses and Nebulizer Results & Data Results & Data ([facility]) Vital Signs (Past 12 Hours) Vital Signs Temp Pulse Pulse Resp BP BP Pulse Ox 09/02/21 10:06 36.8 C 78 149/85 H 97 09/02/21 08:30 36.9 C 72 18 158/90 H 96 09/02/21 08:09 36 C L 73 18 137/81 98
[2021-09-02] MEDS ORDERED: CLOPIDOGREL BISULFATE 300 MG TAB PO STA (11:46)
--- NOTE | 2021-09-02 12:46 | XCELERA ---
[id number]
[2021-09-02] MEDS ORDERED: LEVALBUTEROL HCL 0.63 MG/3 ML NEB INH PRN (13:31)
[2021-09-02] MEDS ORDERED: DICLOFENAC SOD 1% GEL 100 GM TUBE EXT PRN (13:31)
[2021-09-02] MEDS ORDERED: ALBUTEROL HFA 8 GM INHALER INH PRN (13:31)
[2021-09-02] MEDS ORDERED: SENNA 8.6 MG TAB PO PRN (13:31)
[2021-09-02] MEDS ORDERED: FUROSEMIDE 20 MG in SYRINGE 0 ML IV ONE (14:15)
[2021-09-02] MEDS ORDERED: FUROSEMIDE 40 MG in SYRINGE 0 ML IV ONE (14:15)
--- NOTE | 2021-09-02 15:13 | Electrocardiogram Report ---
Test Reason : Blood Pressure : / mmHG Vent. Rate : 067 BPM Atrial Rate : 067 BPM P-R Int : 144 ms QRS Dur : 084 ms QT Int : 434 ms P-R-T Axes : -21 -03 -25 degrees QTc Int : 458 ms Normal sinus rhythm Septal infarct , age undetermined Abnormal ECG When compared with ECG of 05-JUN-2019 08:29, Inverted T waves have replaced nonspecific T wave abnormality in Anterolateral leads Confirmed by Edil Marks ([id number]) on 09/02/2021 3:13:16 PM Referred By: Confirmed By:Edil Marks
[2021-09-02] MEDS: HYDROCORTISONE SOD 50 MG in SYRINGE 0 ML IV SCH ×2 (15:18→21:40)
[2021-09-02] MEDS: traMADol HCL 50 MG TABLET PO PRN (15:22)
--- NOTE | 2021-09-02 15:24 | Electrocardiogram Report ---
Test Reason : Blood Pressure : / mmHG Vent. Rate : 071 BPM Atrial Rate : 071 BPM P-R Int : 150 ms QRS Dur : 078 ms QT Int : 434 ms P-R-T Axes : 042 038 043 degrees QTc Int : 471 ms Normal sinus rhythm Septal infarct (cited on or before 02-SEP-2021) Abnormal ECG When compared with ECG of 02-SEP-2021 08:19, (unconfirmed) Serial changes of evolving Septal infarct Present Confirmed by Edil Marks ([id number]) on 09/02/2021 3:24:31 PM Referred By: REFERRED SELF Confirmed By:Edil Marks
--- NOTE | 2021-09-02 15:50 | Cardiology Consultation ---
Date of Consultation September 02, 2021 Assessment & Plan (1) Non-ST elevation (NSTEMI) myocardial infarction: (2) Ischemic cardiomyopathy: (3) Hypertension: (4) Dyslipidemia: (5) Chronic kidney disease, stage 4 (severe): 1. NSTEMI: Unfortunately she presented late to the emergency room with symptoms that started the night before and a troponin markedly elevated on arrival with electrocardiographic findings suggesting vessel occlusion sometime earlier. The culprit vessel was successfully dilated however she has suffered significant left ventricular damage. 2. Cardiomyopathy: She has a significant cardiomyopathy although it is possible some of the left ventricular dysfunction is stunning from her recent myocardial infarction. We should repeat the echocardiogram prior to discharge, if her ejection fraction is still markedly reduced we should consider LifeVest at discharge. 3. Hypertension: She has a history of hypertension and her blood pressure was elevated on presentation however her recent measurements have been stable on her current regimen. 4. Dyslipidemia: Agree with the use of high intensity statin therapy 5. Chronic kidney disease: We will need to watch her creatinine as she does have chronic kidney disease History of Present Illness Reason for Consultation: NSTEMI Attending Physician: Ariel Gong MD History of Present Illness This is a 75-year-old woman with a history of hypertension but no known heart disease who presented to [facility] emergency room on September 02, 2021 with chest discomfort. Her symptoms started the day before was located on the left side of her chest with radiation to her back. It was constant, she did have some nausea. Initial evaluation in the emergency room included an electrocardiogram which showed some anterolateral T wave inversion which was new, a troponin of 21 and some evidence of CHF. She was taken emergently to the catheterization laboratory where severe triple-vessel coronary disease was identified with significant LAD disease and a culprit first diagonal occlusion. PCI of the diagonal was performed. An echocardiogram done several hours after intervention showed severe left ventricular dysfunction (ejection fraction 25 to 30%) with mild concentric left ventricular hypertrophy and akinesis of the anterior wall as well as the apex and septum. She was started on aspirin, atorvastatin, clopidogrel and metoprolol was continued. Allergies Allergy/AdvReac Type Severity Reaction Status Date / Time amoxicillin Allergy Intermediate SEVERE Verified 09/02/21 09:31 RHEUMATOID ARTHRITIC SYMPTOMS clavulanic acid Allergy Intermediate SEVERE Verified 09/02/21 09:31 RHEUMATOID ARTHRITIC SYMPTOMS iodine Allergy Intermediate Stage 1V Verified 09/02/21 09:31 kidney disease auranofin [From Ridaura] Allergy Mild Rash Verified 09/02/21 09:31 infliximab [From Remicade] Allergy Mild Rash Verified 09/02/21 09:31 Sulfa (Sulfonamide AdvReac Intermediate "give me Verified 09/02/21 09:31 Antibiotics) anxiety" Home Medications Medication Instructions Recorded Confirmed Type ascorbate calcium (vitamin C) 500 500 mg PO QAM 02/15/19 09/02/21 History mg tablet cyanocobalamin (vitamin B-12) 1,000 mcg PO QAM 02/15/19 09/02/21 History 1,000 mcg capsule levalbuterol HCl 0.63 mg/3 mL 0.63 mg INH QID PRN ml 02/15/19 09/02/21 History solution for nebulization (Xopenex) ursodiol 300 mg capsule 300 mg PO BID 02/15/19 09/02/21 History biotin 5,000 mcg sublingual tablet 5,000 mcg SL QAM 05/29/19 09/02/21 History docusate sodium 100 mg capsule 100 mg PO BID 09/17/19 09/02/21 History (Colace) psyllium husk 0.52 gram capsule 0.52 g PO BIDM 09/17/19 09/02/21 History (Metamucil) methylprednisolone 4 mg tablet 4 mg PO QAM tab 05/21/20 09/02/21 History hydroxychloroquine 200 mg tablet 200 mg PO QAM tab 11/16/20 09/02/21 History (Plaquenil) sennosides 8.6 mg tablet (Senokot) 8.6 mg PO HS PRN tab 11/16/20 09/02/21 History sodium chloride 1 gram tablet 1,000 mg PO QDD tab 11/18/20 09/02/21 History gentamicin sulfate (PF) 60 mg/6 mL 60 mg INHALATION UD PRN #45 ml 12/02/20 09/02/21 Rx intravenous solution spironolactone 25 mg tablet 25 mg PO QAM #90 tab 02/01/21 09/02/21 Rx gabapentin 100 mg capsule 100 mg PO BID #60 cap 02/26/21 09/02/21 Rx atenolol 25 mg tablet (Tenormin) 12.5 mg PO QAM #45 tab 04/05/21 09/02/21 Rx fluticasone 500 mcg-salmeterol 50 1 inh INH BID #3 inhaler 04/05/21 09/02/21 Rx mcg/dose blistr powdr for inhalation (Advair Diskus) levothyroxine 100 mcg tablet 100 mcg PO QAM #90 tab 04/16/21 09/02/21 Rx furosemide 20 mg tablet 10 mg PO QAM #45 tab 05/07/21 09/02/21 Rx tofacitinib 5 mg tablet (Xeljanz) 5 mg PO QAM 06/23/21 09/02/21 History albuterol sulfate 90 mcg/actuation 2 puff INH Q4H PRN #8.5 g 07/01/21 09/02/21 Rx aerosol inhaler (Ventolin HFA) tramadol 50 mg tablet 50 mg PO Q8H PRN #90 tab 08/10/21 09/02/21 Rx diclofenac sodium 1 % topical gel 2 g TOPICAL QID PRN 09/02/21 09/02/21 History (Voltaren Arthritis Pain) Patient History Medical History Choledocholithiasis Chronic kidney disease (CKD), stage III (moderate) Chronic kidney disease, stage 4 (severe) Hypertension Immunosuppression due to drug therapy Intractable nausea and vomiting Skin tear of lower leg without complication 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 Russ Brambila [facility] Family History Aunt Breast cancer Father Myocardial infarction Family history of diabetes mellitus Brother Family history of diabetes mellitus Brother Family history of diabetes mellitus Other No family history of adverse response to anesthesia Denies family history of Ovarian cancer Prostate cancer Colorectal cancer Social History Smoking Status: Never smoker Second Hand Exposure: No (parents smoked); Hx Alcohol Use: No Hx Substance Use: No Preferred Language: Bahraini Communication Ability: Effective Visual Impairment: No Limitations Hearing Ability: Normal Body Presser Required: No Beliefs That Will Affect Care: None marital status: Current Living Situation: Spouse Current Living Situation Comment: Lives with and son current occupational status: retired How many Children do You have: 1 Other Information That Helps Us Care for You: No Feels Safe at Home: Yes Safety Concerns: Feels Safe At This Time Childhood Exposure to Second-Hand Smoke: Yes caffeine: Yes Dental Care, Regularly: Yes Physical Activity Frequency: 3-4 Times per Week Seatbelt Use: always Sunscreen Use: Yes Assistive Devices: Cane and Glasses Review of Systems Review of Systems: All systems reviewed & are unremarkable except as noted in HPI & below Physical Exam Physical Exam: Constitutional: Alert, cooperative and in no distress. HEENT: Unremarkable Neck: No jugular venous distention, carotid pulses are normal and equal bilaterally without bruits. Pulmonary: Clear to auscultation bilaterally. Cardiac: Regular rhythm with no murmur, gallop or rub. Abdomen: Soft, nontender with normal bowel sounds. Extremities: No edema. Distal pulses intact. Neurologic: No focal findings. Gait is steady. Skin: No rash, ecchymoses or petechiae. Results & Data ([facility]) Vital Signs (Past 12 Hours) Vital Signs Temp Pulse Pulse Resp BP BP BP 09/02/21 15:28 68 24 133/85 09/02/21 14:28 62 22 134/82 09/02/21 13:28 60 18 136/81 09/02/21 13:01 36.7 C 68 14 124/76 09/02/21 12:58 58 L 18 143/81 H 09/02/21 12:28 60 20 143/82 H 09/02/21 12:05 69 16 148/85 H 09/02/21 11:50 65 16 139/84 09/02/21 10:06 36.8 C 78 149/85 H 09/02/21 08:30 36.9 C 72 18 158/90 H 09/02/21 08:09 36 C L 73 18 137/81 Pulse Ox 09/02/21 15:28 95 09/02/21 14:28 97 09/02/21 13:28 97 09/02/21 13:01 88 L 09/02/21 12:58 97 09/02/21 12:28 97 09/02/21 12:05 95 09/02/21 11:50 95 09/02/21 10:06 97 09/02/21 08:30 96 09/02/21 08:09 98 Laboratory Results Cardiac Enzymes 09/02/21 Range/Units 08:25 AST 114 H (15-37) U/L Troponin I 21.400 H* (0-0.045) ng/ml Coagulation 09/02/21 Range/Units 08:25 APTT 23.7 (21.0-31.0) Seconds CBC 09/02/21 Range/Units 08:25 WBC 16.98 H (4.8-10.8) K/uL RBC 3.75 L (4.2-5.4) M/uL Hgb 11.5 L (12.0-16.0) g/dL Hct 34.2 L (37-47) % Plt Count 461 H (130-400) K/uL Neut # (Auto) 13.36 H (1.4-6.5) K/uL Lymph # (Auto) 1.52 (1.2-3.4) K/uL [place] # (Auto) 1.86 H (0.11-0.59) K/uL Eos # (Auto) 0.09 (0-0.5) K/uL Baso # (Auto) 0.05 (0-0.2) K/uL Comprehensive Metabolic Panel 09/02/21 Range/Units 08:25 Sodium 131 L (136-145) mmol/L Potassium 4.4 (3.5-5.1) mmol/L Chloride 101 (98-107) mmol/L Carbon Dioxide 21 (21-32) mmol/L BUN 28 H (7-18) mg/dl Creatinine 1.85 H (0.6-1.2) mg/dl Glucose 130 H (70-99) mg/dl Calcium 8.6 (8.5-10.1) mg/dl AST 114 H (15-37) U/L ALT 23 (12-78) U/L Alkaline Phosphatase 87 (45-117) U/L Total Protein 7.4 (6.4-8.2) gm/dl Albumin 3.6 (3.4-5.0) gm/dl Intake and Output 09/02/21 09/02/21 09/02/21 06:59 14:59 22:59 Other: Other Intake Source sips Weight 64.6 kg Weight [facility] Weight 09/03/21 06:59 Weight 64.6 kg PG Care Time/CCT Total # of Minutes Spent Total Time Spent with Patient: Total time spent is greater than 50% in coordination of care (as documented) at patient's floor/unit and/or counseling patient: Coding Level of Care Code 00671 Initial Inpt Care Lvl 3 Diagnoses Non-ST elevation (NSTEMI) myocardial infarction I21.4 Hypertension I10 Dyslipidemia E78.5 Chronic kidney disease, stage 4 (severe) N18.4 Ischemic cardiomyopathy I25.5
--- NOTE | 2021-09-02 16:11 | Hospitalist Progress Note ---
Date of Service September 02, 2021 Assessment & Plan (1) Non-ST elevation (NSTEMI) myocardial infarction: Plan: Angelika is a 75-year-old female with a notable past medical history of hypertension, rheumatoid arthritis, degenerative disc disease who presented to [facility] on 09/02 for evaluation of chest pain, fatigue, and shortness of breath, subsequently found to have evidence of NSTEMI. She is hemodynamically stable. Concern for ACS / NSTEMI In the setting of approximately 1 day of chest pain, diaphoresis, nausea, and shortness of breath; also in the setting of significant life stress with 's cancer diagnosis ECG with evidence of anterolateral T wave inversions, plus Initial troponin elevated to 21.4 Chest x-ray pulmonary edema Ongoing chest pain, shortness of breath, and nausea Cardiology consulted in ED, PCI 2 overlapping mid LAD NICOL, D1 NICOL, concern for additional disease in RCA and Circ with possible staged pci in the future -- appreciate insight and recommendations moving forward post-PCI TTE with significantly depressed EF 25% dual antiplatelet therapy, atorvastatin 80 switching to metoprolol tartrate 12.5mg daily, Nitro, morphine, ECG PRN w/ chest pain (2) Hypertension: Plan: Pt will be converted to metoprolol, holding spironolactone in the face of JOAN, lasix 20 mg iv in the face of HF changes on cxr and hypoxia (3) CKD (chronic kidney disease): Plan: now with acute kidney injury with CKD3 or 4, did have dye load but clinically did have some HF, give lasix dose, stopping spironolactone, follow (4) Rheumatoid arthritis: Plan: Pt has immune suppressing medications, plaquenil, daily prednisone, tolfacitinib (5) Hypothyroidism: Plan: remains on synthoid 100mcg (6) Asthma: Plan: does not seem to have flare at this time more likley sob is pulmonary edema (7) Osteoporosis: (8) Disc degeneration, lumbar: Plan: Code: FULL CODE - Discussed with patient. Dispo: PCU Diet: HH diet following PCI Consults: Cardiology PPX: SCDs consider heparin sc Admission and Anticipated Discharge Date Admission Date: September 02, 2021 Subjective Patient is somewhat comfortable post procedure she is short of breath hypoxemic. She has evidence of rales. Cannot assess JVD however she will be given Lasix. She has no further chest pain. Closure site of right wrist appears to be intact Review of Systems Review of Systems: Mild distress and fatigue no headache, no visual changes no speech or swallowing issues no further chest pain, pressure or palpitations Shortness of breath accessory muscle use some wheezes no abdominal pain, nausea or vomiting, diarrhea or constipation no dysuria, hematuria or frequency no focal joint pain or swelling no back pain, CVA tenderness or radicular pain no bruising, bleeding or rashes no focal signs of weakness or numbness or altered sensation no complaints of anxiety or depression.. Physical Exam Physical Exam: The patient appeared ill and frail Vital signs as documented. Head exam is normocephalic atraumatic Neck is without JVD, thyromegaly, or carotid bruits. Lungs are rales at the bases bilaterally Cardiac exam, Rhythm is regular.. No murmurs, rubs or gallops. Abdominal exam reveals normal bowel sounds, soft non tender, no masses Extremities are trace edematous bilaterally and both pedal pulses are present Neurologic exam is alert and oriented, no focal loss of strength or sensation Skin is with changes of chronic steroid use Psychologically is without concerns for anxiety or depression Results & Data Results & Data ([facility]) Vital Signs (Past 12 Hours) Vital Signs Temp Pulse Pulse Resp BP BP BP 09/02/21 15:28 68 24 133/85 09/02/21 14:28 62 22 134/82 09/02/21 13:28 60 18 136/81 09/02/21 13:01 98.1 F 68 14 124/76 09/02/21 12:58 58 L 18 143/81 H 09/02/21 12:28 60 20 143/82 H 09/02/21 12:05 69 16 148/85 H 09/02/21 11:50 65 16 139/84 09/02/21 10:06 98.2 F 78 149/85 H 09/02/21 08:30 98.4 F 72 18 158/90 H 09/02/21 08:09 96.8 F L 73 18 137/81 Pulse Ox 09/02/21 15:28 95 09/02/21 14:28 97 09/02/21 13:28 97 09/02/21 13:01 88 L 09/02/21 12:58 97 09/02/21 12:28 97 09/02/21 12:05 95 09/02/21 11:50 95 09/02/21 10:06 97 09/02/21 08:30 96 09/02/21 08:09 98 PG Care Time/CCT Total # of Minutes Spent Total Time Spent with Patient: Total time spent is greater than 50% in coordination of care (as documented) at patient's floor/unit and/or counseling patient: Coding Level of Care Code 24806 Subseq Hosp Care Lvl 2 Diagnoses Non-ST elevation (NSTEMI) myocardial infarction I21.4 Hypertension I10 Osteoporosis M81.0 Disc degeneration, lumbar M51.36 Hypothyroidism E03.9 Asthma J45.909 Rheumatoid arthritis M06.9 CKD (chronic kidney disease) N18.9
[2021-09-02] MEDS ORDERED: SODIUM CHLORIDE 1 GM TABLET PO SCH (16:30)
[2021-09-02] MEDS: PSYLLIUM 58.6% POWDER PACKET PO SCH (17:44)
[2021-09-02] MEDS: METOPROLOL TARTRATE 25 MG TAB PO SCH (19:33)
[2021-09-02] MEDS: ursodioL 300 MG CAP PO SCH (19:34)
[2021-09-02] MEDS: DOCUSATE SODIUM 100 MG CAP PO SCH (19:34)
[2021-09-02] MEDS: GABAPENTIN 100 MG CAP PO SCH (19:34)
[2021-09-03] MEDS: LEVOTHYROXINE SODIUM 100 MCG TABLET PO SCH (06:03)
[2021-09-03] MEDS: HYDROCORTISONE SOD 50 MG in SYRINGE 0 ML IV SCH ×2 (06:03→14:10)
[2021-09-03] MEDS: PSYLLIUM 58.6% POWDER PACKET PO SCH ×2 (08:47→17:13)
[2021-09-03] MEDS: ASCORBIC ACID 500 MG TAB PO SCH (08:49)
[2021-09-03] MEDS: HYDROXYCHLOROQUINE SULFATE 200 MG TAB PO SCH (08:50)
[2021-09-03] MEDS: CYANOCOBALAMIN 500 MCG TABLET (VITAMIN B-12) PO SCH (08:50)
[2021-09-03] MEDS: ursodioL 300 MG CAP PO SCH ×2 (08:50→21:11)
[2021-09-03] MEDS: ATORVASTATIN 40 MG TAB PO SCH (08:50)
[2021-09-03] MEDS: METOPROLOL TARTRATE 25 MG TAB PO SCH ×2 (08:50→21:11)
[2021-09-03] MEDS: ASPIRIN 81 MG ECTAB PO SCH (08:50)
[2021-09-03] MEDS: CLOPIDOGREL BISULFATE 75 MG TAB PO SCH (08:51)
[2021-09-03] MEDS: GABAPENTIN 100 MG CAP PO SCH ×2 (08:51→21:10)
[2021-09-03] MEDS: FLUTICASONE/VILANTEROL 200/25MCG 14 PUFFS/INHALER INH SCH (08:52)
[2021-09-03] MEDS: DOCUSATE SODIUM 100 MG CAP PO SCH ×2 (08:52→17:13)
[2021-09-03] MEDS ORDERED: ASPIRIN 81 MG ECTAB PO SCH (09:00)
[2021-09-03] MEDS ORDERED: FUROSEMIDE 20 MG TAB PO SCH (09:00)
[2021-09-03] MEDS ORDERED: methylPREDNISolone 4 MG TAB PO SCH (09:00)
[2021-09-03] MEDS ORDERED: SPIRONOLACTONE 25 MG TAB PO SCH (09:00)
[2021-09-03 09:08] LABS: Prothrombin Time 9.8 Seconds (9.0-12.0)
[2021-09-03 09:11] LABS: Albumin Level 3.2 gm/dl (3.4-5.0); BUN Creatinine Ratio 22.4 (10-20); Bilirubin Direct 0.2 mg/dl (0-0.2); Calcium 8.2 mg/dl (8.5-10.1); Creatinine Clr Calc Pharmacy 20.7 ml/min; Est GFR (African American) 27.8 ml/min; Magnesium 2.5 mg/dl (1.8-2.4); Potassium 4.9 mmol/L (3.5-5.1)
[2021-09-03 09:19] LABS: Bilirubin,Total 0.8 mg/dl (0.2-1); Phosphorus 4.3 mg/dl (2.5-4.9); Total Protein 6.8 gm/dl (6.4-8.2); Troponin I 38.8 ng/ml (0-0.045)
--- NOTE | 2021-09-03 09:48 | XRay Report ---
XR chest 1V portable HISTORY: Shortness of breath. COMPARISON: Chest 09/02/2021. FINDINGS: No pneumothorax. Small bilateral pleural effusions and bibasilar densities have slightly im proved. No evidence for pulmonary edema. The cardiac silhouette remains borderline enlarged. There is a moderate hiatus hernia, unchanged. Old, healed left-sided rib fractures. Advanced degenerative niki nges again noted within the right shoulder. IMPRESSION: 1. Small bilateral pleural effusions and bibasilar densities have progressed. This could represent at electasis or pneumonia. 2. No evidence for pulmonary edema. 3. Hiatus hernia, unchanged. ACT 112: Negative or not required by law. Electronically signed by: Robbin Ortiz M.D. 09/03/2021 9:47 AM
[2021-09-03 10:45] LABS: Basophils # (auto) 0.02 K/uL (0-0.2); Basophils % (auto) 0.1 %; Hematocrit (blood only) 33.3 % (37-47); Hemoglobin 11.2 g/dL (12.0-16.0); Immature Granulocytes % (auto) 0.6 %; Lymphocytes % (auto) 3.8 %; Mean Corpuscular Hemoglobin 30.2 pg (25-34); Mean Corpuscular Volume 89.8 fL (80-100); Mean Platelet Volume 9.5 fL (7.4-10.4); Monocytes % (auto) 6.3 %; Neutrophils # (auto) 14.21 K/uL (1.4-6.5); Neutrophils % (auto) 89.2 %; Platelet Count 368 K/uL (130-400); RDW Coefficient of Variation 14.4 % (11.5-14.5); RDW Standard Deviation 47.6 fL (36.4-46.3); Red Blood Count 3.71 M/uL (4.2-5.4); White Blood Count 15.93 K/uL (4.8-10.8)
[2021-09-03 10:46] LABS: Mean Corpuscular Hgb Conc 33.6 g/dL (32-36)
--- NOTE | 2021-09-03 10:56 | Cardiology Progress Note ---
Date of Service September 03, 2021 Assessment & Plan (1) Non-ST elevation (NSTEMI) myocardial infarction: (2) Ischemic cardiomyopathy: (3) Hypertension: (4) Dyslipidemia: (5) Chronic kidney disease, stage 4 (severe): (6) CAD (coronary artery disease): Plan: 1. NSTEMI: Unfortunately she presented late to the emergency room with symptoms that started the night before and a troponin markedly elevated on arrival with electrocardiographic findings suggesting vessel occlusion sometime earlier. Her troponin did continue to rise but that could be secondary to reperfusion. The culprit vessel was successfully dilated however she has suffered significant left ventricular damage. 2. Cardiomyopathy: She has a significant cardiomyopathy based on measurements during her acute event therefore it is possible some of the left ventricular dysfunction is stunning from her recent myocardial infarction. We should repeat the echocardiogram prior to discharge, if her ejection fraction is still markedly reduced we should consider LifeVest at discharge. I will arrange that for this afternoon even though it is little bit early but I would like to see if there has been a significant change since she is complaining of shortness of breath. 3. Hypertension: She has a history of hypertension and her blood pressure was elevated on presentation however her recent measurements have been stable or low on her current regimen. She is on minimal medications and perhaps we are dealing with a low cardiac output state. 4. Dyslipidemia: Agree with the use of high intensity statin therapy 5. Chronic kidney disease: We will need to watch her creatinine as she does emerson ve chronic kidney disease, it is a little bit worse today which could be due to recent dye load as well as possibly decreased cardiac output. The echo may help us with this. 6. Coronary artery disease: I believe a staged procedure was suggested, clearly she is not a candidate to go back to the laboratory now, whether should be next week or beyond that I am not sure and will try to find that out. Admission and Anticipated Discharge Date Admission Date: September 02, 2021 Subjective She has no chest discomfort today, she is somewhat short of breath which she did not have before this event. Otherwise she has no complaints. Physical Exam Physical Exam: Constitutional: Alert, cooperative and in no distress. HEENT: Unremarkable Neck: No jugular venous distention, carotid pulses are normal and equal bilaterally without bruits. Pulmonary: Clear to auscultation bilaterally. Cardiac: Regular rhythm with no murmur, gallop or rub. Abdomen: Soft, nontender with normal bowel sounds. Extremities: No edema. Distal pulses intact. Neurologic: No focal findings. Gait is steady. Skin: No rash, she does have ecchymosis on both arms, no petechiae. Results & Data ([facility]) Vital Signs (Past 12 Hours) Vital Signs Temp Pulse Pulse Resp BP Pulse Ox 09/03/21 08:00 59 L 09/03/21 07:57 36.5 C 79 18 90/54 L 95 09/03/21 03:52 37.0 C 66 19 124/78 99 09/03/21 00:00 68 09/02/21 23:38 36.7 C 74 19 137/84 98 Laboratory Results Cardiac Enzymes 09/03/21 Range/Units 08:21 AST 143 H (15-37) U/L Troponin I 38.800 H* (0-0.045) ng/ml Coagulation 09/03/21 Range/Units 08:21 PT 9.8 (9.0-12.0) Seconds CBC 09/03/21 09/03/21 Range/Units 08:21 10:32 WBC Cancelled 15.93 H RBC Cancelled 3.71 L Hgb Cancelled 11.2 L Hct Cancelled 33.3 L Plt Count Cancelled 368 Neut # (Auto) Cancelled 14.21 H Lymph # (Auto) Cancelled 0.60 [place] # (Auto) Cancelled 1.00 H Eos # (Auto) Cancelled 0.00 Baso # (Auto) Cancelled 0.02 Comprehensive Metabolic Panel 09/03/21 Range/Units 08:21 Sodium 131 L (136-145) mmol/L Potassium 4.9 (3.5-5.1) mmol/L Chloride 101 (98-107) mmol/L Carbon Dioxide 19 L (21-32) mmol/L BUN 45 H D (7-18) mg/dl Creatinine 2.00 H (0.6-1.2) mg/dl Glucose 169 H (70-99) mg/dl Calcium 8.2 L (8.5-10.1) mg/dl Direct Bilirubin 0.2 (0-0.2) mg/dl AST 143 H (15-37) U/L ALT 35 (12-78) U/L Alkaline Phosphatase 101 (45-117) U/L Total Protein 6.8 (6.4-8.2) gm/dl Albumin 3.2 L (3.4-5.0) gm/dl Intake and Output 09/02/21 09/03/21 09/03/21 22:59 06:59 14:59 Output Total 800 / 800 Balance -800 / -800 Output: Urine 800 / 800 Diagnostic Findings Telemetry: Sinus rhythm in the 70s. PG Care Time/CCT Total # of Minutes Spent Total Time Spent with Patient: Total time spent is greater than 50% in coordination of care (as documented) at patient's floor/unit and/or counseling patient: Coding Level of Care Code 25237 Subseq Hosp Care Lvl 3 Diagnoses Non-ST elevation (NSTEMI) myocardial infarction I21.4 Ischemic cardiomyopathy I25.5 Hypertension I10 Dyslipidemia E78.5 Chronic kidney disease, stage 4 (severe) N18.4 CAD (coronary artery disease) I25.10
[2021-09-03] MEDS: XELJANZ 5 MG PO SCH (12:29)
[2021-09-03] MEDS ORDERED: ondansetron HCL 6 MG in DEXTROSE 5% 50 ML IV PRN (12:45)
[2021-09-03] MEDS: traMADol HCL 50 MG TABLET PO PRN ×2 (14:09→22:27)
--- NOTE | 2021-09-03 15:58 | Hospitalist Progress Note ---
Date of Service September 03, 2021 Assessment & Plan (1) Non-ST elevation (NSTEMI) myocardial infarction: Plan: Angelika is a 75-year-old female with a notable past medical history of hypertension, rheumatoid arthritis, degenerative disc disease who presented to [facility] on 09/02 for evaluation of chest pain, fatigue, and shortness of breath, subsequently found to have evidence of NSTEMI. She is hemodynamically stable. Concern for ACS / NSTEMI In the setting of approximately 1 day of chest pain, diaphoresis, nausea, and shortness of breath; also in the setting of significant life stress with 's cancer diagnosis ECG with evidence of anterolateral T wave inversions, plus Initial troponin elevated to 21.4 Chest x-ray pulmonary edema Ongoing chest pain, shortness of breath, and nausea Cardiology consulted in ED, PCI 2 overlapping mid LAD NICOL, D1 NICOL, concern for additional disease in RCA and Circ with possible staged pci in the future -- appreciate insight and recommendations moving forward post-PCI TTE with significantly depressed EF 25% dual antiplatelet therapy, atorvastatin 80 switching to metoprolol tartrate 12.5mg daily, Nitro, morphine, ECG PRN w/ chest pain (2) Melena: Plan: has had 2 melena stools, hgb was 11, pending additional testing, on DAPT for recent stent, iv ppi hemodynamically stable (3) Hypertension: Plan: Pt will be converted to metoprolol, holding spironolactone in the face of JOAN, lasix 20 mg iv in the face of HF changes on cxr and hypoxia (4) CKD (chronic kidney disease): Plan: now with acute kidney injury with CKD3 or 4, did have dye load but clinically did have some HF, give lasix dose, stopping spironolactone, follow (5) Rheumatoid arthritis: Plan: Pt has immune suppressing medications, plaquenil, daily prednisone, tolfacitinib (6) Hypothyroidism: Plan: remains on synthoid 100mcg (7) Asthma: Plan: does not seem to have flare at this time more likley sob is pulmonary edema (8) Osteoporosis: (9) Disc degeneration, lumbar: Plan: Code: FULL CODE - Discussed with patient. Dispo: PCU Diet: HH diet following PCI Consults: Cardiology PPX: SCDs consider heparin sc Admission and Anticipated Discharge Date Admission Date: September 02, 2021 Subjective pt has complaints of mild nausea and did have a melena stool that tested positive for blood no further chest pain, continues with shortness of breath Review of Systems Review of Systems: Mild distress and fatigue no headache, no visual changes no speech or swallowing issues no further chest pain, pressure or palpitations Shortness of breath accessory muscle use some wheezes no abdominal pain, does have nausea no vomiting, dark stools no dysuria, hematuria or frequency no focal joint pain or swelling no back pain, CVA tenderness or radicular pain no bruising, bleeding or rashes no focal signs of weakness or numbness or altered sensation no complaints of anxiety or depression.. Physical Exam Physical Exam: The patient appeared ill and frail Vital signs as documented. Head exam is normocephalic atraumatic Neck is without JVD, thyromegaly, or carotid bruits. Lungs only scant rales at the bases Cardiac exam, Rhythm is regular.. moe Abdominal exam reveals normal bowel sounds, soft non tender, no masses Extremities are trace edematous bilaterally and both pedal pulses are present Neurologic exam is alert and oriented, no focal loss of strength or sensation Skin is with changes of chronic steroid use Psychologically is without concerns for anxiety or depression Results & Data Results & Data ([facility]) Vital Signs (Past 12 Hours) Vital Signs Temp Pulse Pulse Resp BP Pulse Ox 09/03/21 15:46 62 09/03/21 15:36 98.2 F 72 18 121/63 99 09/03/21 11:49 97.9 F 84 18 98/60 L 96 09/03/21 08:00 59 L 09/03/21 07:57 97.7 F 79 18 90/54 L 95 PG Care Time/CCT Total # of Minutes Spent Total Time Spent with Patient: Total time spent is greater than 50% in coordination of care (as documented) at patient's floor/unit and/or counseling patient: Coding Level of Care Code 58239 Subseq Hosp Care Lvl 3 Diagnoses Non-ST elevation (NSTEMI) myocardial infarction I21.4 Hypertension I10 CKD (chronic kidney disease) N18.9 Rheumatoid arthritis M06.9 Hypothyroidism E03.9 Asthma J45.909 Osteoporosis M81.0 Disc degeneration, lumbar M51.36 Melena K92.1
[2021-09-03 17:03] LABS: Prothrombin Time 10.4 Seconds (9.0-12.0)
[2021-09-03] MEDS: PANTOprazole 40 MG in SYRINGE 0 ML IV SCH ×2 (17:13→21:11)
[2021-09-03] MEDS ORDERED: FLUTICASONE/VILANTEROL 200/25MCG 14 PUFFS/INHALER INH SCH (22:45)
[2021-09-04] MEDS: LEVOTHYROXINE SODIUM 100 MCG TABLET PO SCH (05:55)
[2021-09-04 06:31] LABS: Hematocrit (blood only) 32.2 % (37-47); Hemoglobin 10.9 g/dL (12.0-16.0); Mean Corpuscular Hemoglobin 30.4 pg (25-34); Mean Corpuscular Hgb Conc 33.9 g/dL (32-36); Mean Corpuscular Volume 89.7 fL (80-100); Mean Platelet Volume 9.6 fL (7.4-10.4); Platelet Count 308 K/uL (130-400); RDW Coefficient of Variation 14.7 % (11.5-14.5); RDW Standard Deviation 48.1 fL (36.4-46.3); Red Blood Count 3.59 M/uL (4.2-5.4); White Blood Count 12.98 K/uL (4.8-10.8)
[2021-09-04 06:46] LABS: Prothrombin Time 10.3 Seconds (9.0-12.0)
[2021-09-04 07:17] LABS: Albumin Level 2.5 gm/dl (3.4-5.0); BUN Creatinine Ratio 21.8 (10-20); Bilirubin Direct 0.4 mg/dl (0-0.2); Bilirubin,Total 0.9 mg/dl (0.2-1); Calcium 8.1 mg/dl (8.5-10.1); Creatinine Clr Calc Pharmacy 12.7 ml/min; Est GFR (African American) 15.9 ml/min; Est GFR (Non-African American) 13.7 ml/min; Magnesium 2.6 mg/dl (1.8-2.4); Phosphorus 4.8 mg/dl (2.5-4.9); Potassium 4.3 mmol/L (3.5-5.1)
[2021-09-04 07:21] LABS: Basophils # (auto) 0.01 K/uL (0-0.2); Basophils % (auto) 0.1 %; Eosinophils # (auto) 0.03 K/uL (0-0.5); Eosinophils % (auto) 0.2 %; Immature Granulocytes # (auto) 0.08 K/uL (0.00-0.02); Immature Granulocytes % (auto) 0.6 %; Lymphocytes % (auto) 4.6 %; Monocytes # (auto) 0.87 K/uL (0.11-0.59); Monocytes % (auto) 6.7 %; Neutrophils # (auto) 11.39 K/uL (1.4-6.5); Neutrophils % (auto) 87.8 %
[2021-09-04] MEDS: XELJANZ 5 MG PO SCH (08:36)
[2021-09-04] MEDS: PANTOprazole 40 MG in SYRINGE 0 ML IV SCH ×2 (08:36→22:43)
[2021-09-04] MEDS: GABAPENTIN 100 MG CAP PO SCH ×2 (08:37→22:42)
[2021-09-04] MEDS: ursodioL 300 MG CAP PO SCH ×2 (08:37→22:43)
[2021-09-04] MEDS: ASPIRIN 81 MG ECTAB PO SCH (08:37)
[2021-09-04] MEDS: methylPREDNISolone 4 MG TAB PO SCH (08:37)
[2021-09-04] MEDS: HYDROXYCHLOROQUINE SULFATE 200 MG TAB PO SCH (08:37)
[2021-09-04] MEDS: CYANOCOBALAMIN 500 MCG TABLET (VITAMIN B-12) PO SCH (08:37)
[2021-09-04] MEDS: ATORVASTATIN 40 MG TAB PO SCH (08:37)
[2021-09-04] MEDS: CLOPIDOGREL BISULFATE 75 MG TAB PO SCH (08:37)
[2021-09-04] MEDS: PSYLLIUM 58.6% POWDER PACKET PO SCH ×2 (08:38→17:18)
[2021-09-04] MEDS: FLUTICASONE/VILANTEROL 200/25MCG 14 PUFFS/INHALER INH SCH (08:38)
[2021-09-04] MEDS: ASCORBIC ACID 500 MG TAB PO SCH (08:38)
[2021-09-04] MEDS: DOCUSATE SODIUM 100 MG CAP PO SCH ×2 (08:38→22:43)
[2021-09-04] MEDS: METOPROLOL TARTRATE 25 MG TAB PO SCH ×2 (08:39→22:42)
--- NOTE | 2021-09-04 10:39 | XCELERA ---
[id number]
[2021-09-04] MEDS ORDERED: SODIUM BICARBONATE 650 MG TAB PO ONE (10:54)
--- NOTE | 2021-09-04 10:58 | Nephrology Consultation ---
Date of Consultation September 04, 2021 Assessment & Plan (1) JOAN (acute kidney injury): Clinically consistent with suspected ATN in the setting of ACS and hypotension. Non-oliguric. Electrolytes and volume status acceptable. No emergent indication for dialysis. Medications are appropriately dosed for kidney dysfunction. UA/microscopy pending. Kidney US pending. C3/C4 to be checked with next blood work. Clinical presentation more consistent with ATN following catheterization than with atheroembolic disease. CK with AM labs. Document strict I/O's and repeat metabolic profile tomorrow AM. Goals of care were discussed this AM. Mrs. Herrera is receptive to dialysis if indicated in the future. Single dose of NaHCO3 provided now for NAGMA and dysnatremia. (2) Stage 3b chronic kidney disease: Baseline creatinine 1.6-2.0 mg/dL attributed to microvascular disease and history of NSAID use. Prior imaging and records from Dr. Arellano were reviewed this AM. (3) Ischemic cardiomyopathy: Volume status acceptable. Maintain a continued even to slightly negative fluid balance. (4) Hypertension: BP now hypotensive. MAP goal >65 in setting of JOAN. Spironolactone held. Atenolol switched to metoprolol. YANG/ARB deferred at this time due to JOAN and hypotension. Patient also did not tolerate well in the past due to cough. History of Present Illness Reason for Consultation: JOAN/CKD Requesting Physician: Ariel Gong MD Attending Physician: Ariel Gong MD History of Present Illness Mrs. Angelika Herrera is a 75-year-old female with chronic kidney disease III A1 attributed predominately to a history of NSAID use and microvascular disease. She follows in the CKD clinic with Dr. Arellano. Baseline creatinine has been ~1.6-2.0 mg/dL. No abnormalities on prior imaging. Medical history is also notable for hypertension, rheumatoid arthritis, DJD/OA, and hypothyroidism. Tofacitinib was held in the past due to concerns that the medication may have contributed to worsening kidney function. Due to progressive RA symptoms, the medication was restarted in May with close monitoring. Creatinine was at baseline of ~1.85 mg/dL on September 02 when Mrs. Herrera presented to the ER. She presented CP and shortness of breath which had been present for nearly 24 hours prior to arrival. Evaluation revealed concerning anterolateral changes for which emergent cardiac catheterization was completed. The evaluation demonstrated multivessel coronary disease with significant LAD disease and a 100% occluded D1. 80% occlusion of the mid circ and 70% mid RCA also noted. PCI of the LAD and D1 was performed. Unfortunately, she suffered significant LV damage as evidenced by echocardiogram completed following the procedure. Follow up echocardiography this AM continues to demonstrate severe hypokinesis of the anterior wall and an akinetic LV apex. LVEF 25-30%. Medical therapy has included aspirin, clopidogrel, and atorvastatin. Atenolol has been switched to metoprolol. BP has been low post procedure. Mrs. Herrera is non-oliguric with a documented negative fluid balance. She had a couple bowel movements that were concerning for melena and Hemoccult positive stool. BP has been controlled at home with a combination of atenolol, furosemide, and spironolactone. She was not able to tolerate lisinopril or losartan in the past due to cough. She was not able to tolerate amlodipine due to dyspnea. She developed notable hyponatremia with HCTZ in the past. Mrs. Herrera is maintained on 1 gram of sodium chloride daily for chronic hyponatremia attributed to diuretics. CXR on admission demonstrates small bilateral pleural effusions and bibasilar densities. Mrs. Herrera denies any chest pain now. She does not have shortness of breath at rest. She is breathing comfortably on 2 L NC. However, she feels very weak and tired which she attributes to low blood pressure. Activity tolerance is limited. No fevers or chills reported. Noted anxiety and concerns at home. Prior to admission, Mrs. Herrera was struggling with stress associated with her 's recent cancer diagnosis. Allergies Allergy/AdvReac Type Severity Reaction Status Date / Time amoxicillin Allergy Intermediate SEVERE Verified 09/02/21 09:31 RHEUMATOID ARTHRITIC SYMPTOMS clavulanic acid Allergy Intermediate SEVERE Verified 09/02/21 09:31 RHEUMATOID ARTHRITIC SYMPTOMS iodine Allergy Intermediate Stage 1V Verified 09/02/21 09:31 kidney disease auranofin [From Ridaura] Allergy Mild Rash Verified 09/02/21 09:31 infliximab [From Remicade] Allergy Mild Rash Verified 09/02/21 09:31 Sulfa (Sulfonamide AdvReac Intermediate "give me Verified 09/02/21 09:31 Antibiotics) anxiety" Home Medications Medication Instructions Recorded Confirmed Type ascorbate calcium (vitamin C) 500 500 mg PO QAM 04/05/19 10/21/21 History mg tablet cyanocobalamin (vitamin B-12) 1,000 mcg PO QAM 02/15/19 09/02/21 History 1,000 mcg capsule levalbuterol HCl 0.63 mg/3 mL 0.63 mg INH QID PRN ml 02/15/19 09/02/21 History solution for nebulization (Xopenex) ursodiol 300 mg capsule 300 mg PO BID 02/15/19 09/02/21 History biotin 5,000 mcg sublingual tablet 5,000 mcg SL QAM 05/29/19 09/02/21 History docusate sodium 100 mg capsule 100 mg PO BID 09/17/19 09/02/21 History (Colace) psyllium husk 0.52 gram capsule 0.52 g PO BIDM 09/17/19 09/02/21 History (Metamucil) methylprednisolone 4 mg tablet 4 mg PO QAM tab 05/21/20 09/02/21 History hydroxychloroquine 200 mg tablet 200 mg PO QAM tab 11/16/20 09/02/21 History (Plaquenil) sennosides 8.6 mg tablet (Senokot) 8.6 mg PO HS PRN tab 11/16/20 09/02/21 History sodium chloride 1 gram tablet 1,000 mg PO QDD tab 11/18/20 09/02/21 History gentamicin sulfate (PF) 60 mg/6 mL 60 mg INHALATION UD PRN #45 ml 12/02/20 09/02/21 Rx intravenous solution spironolactone 25 mg tablet 25 mg PO QAM #90 tab 02/01/21 09/02/21 Rx gabapentin 100 mg capsule 100 mg PO BID #60 cap 02/26/21 09/02/21 Rx atenolol 25 mg tablet (Tenormin) 12.5 mg PO QAM #45 tab 04/05/21 09/02/21 Rx fluticasone 500 mcg-salmeterol 50 1 inh INH BID #3 inhaler 04/05/21 09/02/21 Rx mcg/dose blistr powdr for inhalation (Advair Diskus) levothyroxine 100 mcg tablet 100 mcg PO QAM #90 tab 04/16/21 09/02/21 Rx furosemide 20 mg tablet 10 mg PO QAM #45 tab 05/07/21 09/02/21 Rx tofacitinib 5 mg tablet (Xeljanz) 5 mg PO QAM 06/23/21 09/02/21 History albuterol sulfate 90 mcg/actuation 2 puff INH Q4H PRN #8.5 g 07/01/21 09/02/21 Rx aerosol inhaler (Ventolin HFA) tramadol 50 mg tablet 50 mg PO Q8H PRN #90 tab 08/10/21 09/02/21 Rx diclofenac sodium 1 % topical gel 2 g TOPICAL QID PRN 09/02/21 09/02/21 History (Voltaren Arthritis Pain) Patient History Medical History Choledocholithiasis Chronic kidney disease (CKD), stage III (moderate) Hypertension Intractable nausea and vomiting Skin tear of lower leg without complication 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 Russ Brambila S/P [facility] Family History Aunt Breast cancer Father Myocardial infarction Family history of diabetes mellitus Brother Family history of diabetes mellitus Brother Family history of diabetes mellitus Other No family history of adverse response to anesthesia Denies family history of Ovarian cancer Prostate cancer Colorectal cancer Social History Smoking Status: Never smoker Second Hand Exposure: No (parents smoked); Hx Alcohol Use: No Hx Substance Use: No Preferred Language: Mohawk Communication Ability: Effective Visual Impairment: No Limitations Hearing Ability: Normal Confectionery Cooker Required: No Beliefs That Will Affect Care: None marital status: Current Living Situation: Spouse Current Living Situation Comment: Lives with and son current occupational status: retired How many Children do You have: 1 Other Information That Helps Us Care for You: No Feels Safe at Home: Yes Safety Concerns: Feels Safe At This Time Childhood Exposure to Second-Hand Smoke: Yes caffeine: Yes Dental Care, Regularly: Yes Physical Activity Frequency: 3-4 Times per Week Seatbelt Use: always Sunscreen Use: Yes Assistive Devices: Cane and Glasses Review of Systems Review of Systems: All systems reviewed & are unremarkable except as noted in HPI & below Physical Exam Constitutional: well developed; no acute distress Eyes: no scleral abnormality and no corneal abnormality ENMT: Mouth: no oral mucosal abnormality and oral mucous membranes not dry Neck: normal visual inspection and trachea midline Respiratory: normal respiratory effort Auscultation: lungs clear to auscultation bilaterally Cardiovascular: Rate/Rhythm: regular rate Heart Sounds: normal S1 and normal S2 Vessels: + JVD Extremities: no edema Musculoskeletal: Extremities: no cyanosis and no clubbing Skin: + turgor decreased and + ecchymosis Neurologic: Motor/Sensory: no tremor and no asterixis Psychiatric: Orientation: alert and oriented x 3 Results & Data ([facility]) Vital Signs (Past 12 Hours) Vital Signs Temp Pulse Pulse Resp BP Pulse Ox 09/04/21 07:43 91 H 09/04/21 07:08 36.6 C 86 17 93/62 L 97 09/04/21 04:00 36.7 C 86 16 80/58 L 97 09/03/21 23:01 36.8 C 64 18 98/61 L 96 Laboratory Results Laboratory Results - last 24 hr 09/03/21 09/03/21 09/03/21 14:10 16:43 16:43 WBC RBC Hgb 12.4 Hct MCV MCH MCHC RDW Std Deviation RDW Coeff of Sue Plt Count MPV Immature Gran % (Auto) Neut % (Auto) Lymph % (Auto) [place] % (Auto) Eos % (Auto) Baso % (Auto) Neut # (Auto) Lymph # (Auto) [place] # (Auto) Eos # (Auto) Baso # (Auto) Immature Gran # (Auto) PT 10.4 INR 1.0 Sodium Potassium Chloride Carbon Dioxide Anion Gap BUN Creatinine Est Cr Clr Drug Dosing Est GFR ( Amer) Est GFR (Non-Af Amer) BUN/Creatinine Ratio Glucose Calcium Phosphorus Magnesium Total Bilirubin Direct Bilirubin AST ALT Alkaline Phosphatase Total Protein Albumin Stool Occult Bld Scrn Positive A 09/04/21 09/04/21 09/04/21 06:19 06:19 06:19 WBC 12.98 H RBC 3.59 L Hgb 10.9 L Hct 32.2 L MCV 89.7 MCH 30.4 MCHC 33.9 RDW Std Deviation 48.1 H RDW Coeff of Sue 14.7 H Plt Count 308 MPV 9.6 Immature Gran % (Auto) 0.6 Neut % (Auto) 87.8 Lymph % (Auto) 4.6 [place] % (Auto) 6.7 Eos % (Auto) 0.2 Baso % (Auto) 0.1 Neut # (Auto) 11.39 H Lymph # (Auto) 0.60 L [place] # (Auto) 0.87 H Eos # (Auto) 0.03 Baso # (Auto) 0.01 Immature Gran # (Auto) 0.08 H PT 10.3 INR 1.0 Sodium 130 L Potassium 4.3 Chloride 99 Carbon Dioxide 18 L Anion Gap 14.0 H BUN 69 H D Creatinine 3.18 H D Est Cr Clr Drug Dosing 12.7 Est GFR ( Amer) 15.9 Est GFR (Non-Af Amer) 13.7 BUN/Creatinine Ratio 21.8 H Glucose 125 H Calcium 8.1 L Phosphorus 4.8 Magnesium 2.6 H Total Bilirubin 0.9 Direct Bilirubin 0.4 H D AST 70 H ALT 27 Alkaline Phosphatase 123 H Total Protein 6.0 L Albumin 2.5 L Stool Occult Bld Scrn PG Care Time/CCT Total # of Minutes Spent Total Time Spent with Patient: Total time spent is greater than 50% in coordination of care (as documented) at patient's floor/unit and/or counseling patient: Coding Level of Care Code 30589 Inpt Consult Level 4 Diagnoses Hypertension I10 Stage 3b chronic kidney disease N18.32 JOAN (acute kidney injury) N17.9 Ischemic cardiomyopathy I25.5
--- NOTE | 2021-09-04 11:31 | Cardiology Progress Note ---
Date of Service September 04, 2021 Assessment & Plan (1) Non-ST elevation (NSTEMI) myocardial infarction: Plan: -troponin I level peaked at 38.8. -she was a late presentation of her IL. -ostial D1 NICOL, mid LAD NICOL on September 02. -echocardiogram today unchanged from that done on September 02. -Dr. Belcher mentioned the possibility of a staged procedure (80% mid LCx, 70% mid RCA). (2) Ischemic cardiomyopathy: Plan: -LVEF of 25-30% with a large anterior apical wall motion abnormality. -should change metoprolol tartrate to metoprolol succinate. -not on an ACEI or an ARB due to her renal insufficiency. -she may need a life vest at the time of discharge. (3) Hypertension: Plan: -adequate control on current regimen. (4) Dyslipidemia: Plan: -continue atorvastatin. Admission and Anticipated Discharge Date Admission Date: September 02, 2021 Subjective The patient is resting comfortably in bed without complaints of chest pain. She does note dyspnea with minimal physical activity. Physical Exam Physical Exam: In general is well-developed well-nourished white female no acute distress. HEENT exam is negative. Neck is supple with full carotid upstrokes. There are no carotid bruits. Jugular is pressure is flat at 90. No thyromegaly. Cardiovascular exam reveals a regular rhythm with distant heart sounds. No obvious murmurs. No S3. Lungs note decreased breath sounds at the bases but no rales, rhonchi, or wheezes. Abdomen is soft without bruits. Extremities note diffuse ecchymoses across the upper extremities bilaterally. Trace pretibial edema is noted. Results & Data ([facility]) Vital Signs (Past 12 Hours) Vital Signs Temp Pulse Pulse Resp BP Pulse Ox 09/04/21 07:43 91 H 09/04/21 07:08 36.6 C 86 17 93/62 L 97 09/04/21 04:00 36.7 C 86 16 80/58 L 97 Diagnostic Findings instrument designer is benign. PG Care Time/CCT Total # of Minutes Spent Total Time Spent with Patient: Total time spent is greater than 50% in coordination of care (as documented) at patient's floor/unit and/or counseling patient: Coding Level of Care Code 79332 Subseq Hosp Care Lvl 3 Diagnoses Non-ST elevation (NSTEMI) myocardial infarction I21.4 Ischemic cardiomyopathy I25.5 Hypertension I10 Dyslipidemia E78.5
--- NOTE | 2021-09-04 14:11 | Electrocardiogram Report ---
Test Reason : Blood Pressure : / mmHG Vent. Rate : 094 BPM Atrial Rate : 094 BPM P-R Int : 142 ms QRS Dur : 084 ms QT Int : 342 ms P-R-T Axes : -05 -19 -67 degrees QTc Int : 427 ms Normal sinus rhythm Septal infarct (cited on or before 02-SEP-2021) Lateral injury pattern ACUTE PA / STEMI Abnormal ECG When compared with ECG of 03-SEP-2021 08:40, Serial changes of Septal infarct Present Confirmed by Rj Nagy ([id number]) on 09/04/2021 2:11:15 PM Referred By: REFERRED SELF Confirmed By:Rj Nagy
--- NOTE | 2021-09-04 17:55 | Hospitalist Progress Note ---
Date of Service September 04, 2021 Assessment & Plan (1) Non-ST elevation (NSTEMI) myocardial infarction: Plan: Angelika is a 75-year-old female with a notable past medical history of hypertension, rheumatoid arthritis, degenerative disc disease who presented to [facility] on 09/02 for evaluation of chest pain, fatigue, and shortness of breath, subsequently found to have evidence of NSTEMI. She is hemodynamically stable. Concern for ACS / NSTEMI In the setting of approximately 1 day of chest pain, diaphoresis, nausea, and shortness of breath; also in the setting of significant life stress with 's cancer diagnosis ECG with evidence of anterolateral T wave inversions, plus Initial troponin elevated to 21.4 Chest x-ray pulmonary edema Ongoing chest pain, shortness of breath, and nausea Cardiology consulted in ED, PCI 2 overlapping mid LAD NICOL, D1 NICOL, concern for additional disease in RCA and Circ with possible staged pci in the future -- appreciate insight and recommendations moving forward post-PCI TTE with significantly depressed EF 25% dual antiplatelet therapy, atorvastatin 80 switching to metoprolol tartrate 12.5mg daily, cardiology considering switch to succinate Nitro, morphine, ECG PRN w/ chest pain (2) Acute kidney injury: Plan: acute kidney injury from dye load and some pre renal issues likley causing ATN, Dr Chaparro did see in consult (3) Melena: Plan: has had 2 melena stools, hgb was 11, on DAPT for recent stent, iv ppi hemodynamically stable (4) Hypertension: Plan: Pt will be converted to metoprolol, holding spironolactone in the face of JOAN, lasix 20 mg iv in the face of HF changes on cxr and hypoxia (5) CKD (chronic kidney disease): Plan: now with acute kidney injury with CKD3 or 4, did have dye load stopping spironolactone, follow recommendation of Nephrology (6) Rheumatoid arthritis: Plan: Pt has immune suppressing medications, plaquenil, daily prednisone, tolfacitinib (7) Hypothyroidism: Plan: remains on synthoid 100mcg (8) Asthma: Plan: does not seem to have flare at this time more likley sob is pulmonary edema (9) Osteoporosis: (10) Disc degeneration, lumbar: Plan: Code: FULL CODE - Discussed with patient. Dispo: PCU Diet: HH diet following PCI Consults: Cardiology PPX: SCDs consider heparin sc Admission and Anticipated Discharge Date Admission Date: September 02, 2021 Subjective The patient is resting comfortably in bed without complaints of chest pain. She does note dyspnea with minimal physical activity. she does not appear to be in fluid overload Review of Systems Review of Systems: Mild distress and fatigue no headache, no visual changes no speech or swallowing issues no further chest pain, pressure or palpitations Shortness of breath accessory muscle use some wheezes no abdominal pain, does have nausea no vomiting, dark stools no dysuria, hematuria or frequency no focal joint pain or swelling no back pain, CVA tenderness or radicular pain no bruising, bleeding or rashes no focal signs of weakness or numbness or altered sensation no complaints of anxiety or depression.. Physical Exam Physical Exam: The patient appeared ill and frail Vital signs as documented. Head exam is normocephalic atraumatic Neck is without JVD, thyromegaly, or carotid bruits. Lungs only scant rales at the bases Cardiac exam, Rhythm is regular.. moe Abdominal exam reveals normal bowel sounds, soft non tender, no masses Extremities are trace edematous bilaterally and both pedal pulses are present Neurologic exam is alert and oriented, no focal loss of strength or sensation Skin is with changes of chronic steroid use Psychologically is without concerns for anxiety or depression Results & Data Results & Data ([facility]) Vital Signs (Past 12 Hours) Vital Signs Temp Pulse Pulse Resp BP BP Pulse Ox 09/04/21 15:55 98.4 F 81 18 99/66 L 97 09/04/21 14:21 94 09/04/21 12:03 98.2 F 88 18 90/53 L 95 09/04/21 07:43 91 H 09/04/21 07:08 97.9 F 86 17 93/62 L 97 PG Care Time/CCT Total # of Minutes Spent Total Time Spent with Patient: Total time spent is greater than 50% in coordination of care (as documented) at patient's floor/unit and/or counseling patient: Coding Level of Care Code 16566 Subseq Hosp Care Lvl 2 Diagnoses Non-ST elevation (NSTEMI) myocardial infarction I21.4 Melena K92.1 Hypertension I10 CKD (chronic kidney disease) N18.9 Rheumatoid arthritis M06.9 Hypothyroidism E03.9 Asthma J45.909 Osteoporosis M81.0 Disc degeneration, lumbar M51.36 Acute kidney injury N17.9
--- NOTE | 2021-09-04 21:17 | Ultrasound Report ---
US renal/blad retro comp CLINICAL HISTORY: acute renal failure TECHNIQUE: Multiple sonographic real-time images of the kidneys and bladder were obtained. COMPARISON: None available at the time of this dictation. FINDINGS: The right kidney measures 9.2 cm in length, and the left kidney measures 9.2 cm in length. The right kidney is normal in size, contour, cortical thickness, and echogenicity. No hydronephrosis is identified. No renal lesion is identified. No perinephric fluid collection is seen. The left kidney is normal in size, contour, cortical thickness and echogenicity. No hydronephrosis i s identified. No renal lesion is identified. No perinephric fluid collection is seen. The bladder is partially distended. No large intraluminal mass is seen. Bilateral ureteral jets are v isualized. IMPRESSION: Unremarkable renal ultrasound. No evidence of hydronephrosis. ACT 112: Negative or not required by law. Electronically signed by: Alex Wolf M.D. 09/04/2021 9:16 PM
[2021-09-05] MEDS: traMADol HCL 50 MG TABLET PO PRN ×3 (00:04→17:06)
[2021-09-05] MEDS: LEVOTHYROXINE SODIUM 100 MCG TABLET PO SCH (06:22)
[2021-09-05 07:09] LABS: Hematocrit (blood only) 27.3 % (37-47); Hemoglobin 9.2 g/dL (12.0-16.0); Mean Corpuscular Hemoglobin 29.9 pg (25-34); Mean Corpuscular Hgb Conc 33.7 g/dL (32-36); Mean Corpuscular Volume 88.6 fL (80-100); Mean Platelet Volume 9.5 fL (7.4-10.4); Platelet Count 263 K/uL (130-400); RDW Coefficient of Variation 14.5 % (11.5-14.5); RDW Standard Deviation 47.2 fL (36.4-46.3); Red Blood Count 3.08 M/uL (4.2-5.4); White Blood Count 11.53 K/uL (4.8-10.8)
[2021-09-05 07:18] LABS: Prothrombin Time 10.3 Seconds (9.0-12.0)
[2021-09-05 07:34] LABS: Basophils # (auto) 0.01 K/uL (0-0.2); Basophils % (auto) 0.1 %; Dohle Bodies 1+; Eosinophils # (auto) 0.05 K/uL (0-0.5); Eosinophils % (auto) 0.4 %; Immature Granulocytes # (auto) 0.05 K/uL (0.00-0.02); Immature Granulocytes % (auto) 0.4 %; Lymphocytes # (auto) 0.61 K/uL (1.2-3.4); Lymphocytes % (auto) 5.3 %; Monocytes # (auto) 0.88 K/uL (0.11-0.59); Monocytes % (auto) 7.6 %; Neutrophils # (auto) 9.93 K/uL (1.4-6.5); Neutrophils % (auto) 86.2 %
[2021-09-05 07:40] LABS: Albumin Level 2.1 gm/dl (3.4-5.0); BUN Creatinine Ratio 22.8 (10-20); Bilirubin Direct 0.4 mg/dl (0-0.2); Calcium 7.7 mg/dl (8.5-10.1); Creatinine Clr Calc Pharmacy 11.2 ml/min; Est GFR (African American) 13.7 ml/min; Est GFR (Non-African American) 11.8 ml/min; Magnesium 2.7 mg/dl (1.8-2.4); Potassium 4.3 mmol/L (3.5-5.1)
[2021-09-05 07:44] LABS: Bilirubin,Total 0.8 mg/dl (0.2-1); Phosphorus 4.6 mg/dl (2.5-4.9); Total Protein 5.8 gm/dl (6.4-8.2)
[2021-09-05] MEDS: FLUTICASONE/VILANTEROL 200/25MCG 14 PUFFS/INHALER INH SCH (09:13)
[2021-09-05] MEDS: PSYLLIUM 58.6% POWDER PACKET PO SCH (09:14)
[2021-09-05] MEDS: XELJANZ 5 MG PO SCH (09:15)
[2021-09-05] MEDS: methylPREDNISolone 4 MG TAB PO SCH (09:17)
[2021-09-05] MEDS: ursodioL 300 MG CAP PO SCH ×2 (09:17→20:46)
[2021-09-05] MEDS: CYANOCOBALAMIN 500 MCG TABLET (VITAMIN B-12) PO SCH (09:18)
[2021-09-05] MEDS: CLOPIDOGREL BISULFATE 75 MG TAB PO SCH (09:18)
[2021-09-05] MEDS: HYDROXYCHLOROQUINE SULFATE 200 MG TAB PO SCH (09:18)
[2021-09-05] MEDS: GABAPENTIN 100 MG CAP PO SCH ×2 (09:18→20:46)
[2021-09-05] MEDS: ATORVASTATIN 40 MG TAB PO SCH (09:19)
[2021-09-05] MEDS: METOPROLOL TARTRATE 25 MG TAB PO SCH (09:19)
[2021-09-05] MEDS: PANTOprazole 40 MG in SYRINGE 0 ML IV SCH ×2 (09:19→20:46)
[2021-09-05] MEDS: ASPIRIN 81 MG ECTAB PO SCH (09:19)
[2021-09-05] MEDS: ASCORBIC ACID 500 MG TAB PO SCH (09:19)
[2021-09-05] MEDS: DOCUSATE SODIUM 100 MG CAP PO SCH (09:23)
[2021-09-05] MEDS ORDERED: carvediloL 3.125 MG TAB PO ONE (09:29)
[2021-09-05] MEDS: SODIUM BICARBONATE 650 MG TAB PO SCH ×2 (10:52→20:47)
--- NOTE | 2021-09-05 11:51 | Nephrology Progress Note ---
Date of Service September 05, 2021 Assessment & Plan (1) JOAN (acute kidney injury): Plan: Clinically consistent with suspected ATN in the setting of ACS and hypotension. Non-oliguric. Electrolytes and volume status acceptable. No emergent indication for dialysis. Medications are appropriately dosed for kidney dysfunction. UA/microscopy reviewed. Few WBCs noted. SG 1.009. Kidney US reviewed this AM. No obstruction. C3/C4 pending. Clinical presentation more consistent with ATN following catheterization than with atheroembolic disease. CK not significantly elevated. Document strict I/O's and repeat metabolic profile tomorrow AM. For hyponatremia, free water restriction 1 L/d ordered. Oral NaHCO3 BID ordered for NAGMA + dysnatremia. (2) Stage 3b chronic kidney disease: Plan: Baseline creatinine 1.6-2.0 mg/dL attributed to microvascular disease and history of NSAID use. Prior imaging and records from Dr. Arellano were reviewed this AM. (3) Ischemic cardiomyopathy: Plan: Volume status remains acceptable. Maintain a continued even to slightly negative fluid balance. (4) Hypertension: Plan: BP now hypotensive. MAP goal >65 in setting of JOAN. Spironolactone held. Atenolol switched to metoprolol. YANG/ARB deferred at this time due to JOAN and hypotension. Patient also did not tolerate well in the past due to cough. Admission and Anticipated Discharge Date Admission Date: September 02, 2021 Subjective No acute events overnight. No chest pain or palpitations. Out of bed to commode with OT this AM. Denies significant dyspnea. BP improved. Review of Systems Review of Systems: All systems reviewed & are unremarkable except as noted in HPI & below Physical Exam Constitutional: well developed; no acute distress Eyes: no scleral abnormality and no corneal abnormality ENMT: Mouth: no oral mucosal abnormality and oral mucous membranes not dry Neck: normal visual inspection and trachea midline Respiratory: normal respiratory effort Auscultation: lungs clear to auscultation bilaterally Cardiovascular: Rate/Rhythm: regular rate Heart Sounds: normal S1 and normal S2 Extremities: no edema Musculoskeletal: Extremities: no cyanosis and no clubbing Skin: + turgor decreased and + ecchymosis Neurologic: Motor/Sensory: no tremor and no asterixis Psychiatric: Orientation: alert and oriented x 3 Results & Data ([facility]) Vital Signs (Past 12 Hours) Vital Signs Temp Pulse Resp BP BP Pulse Ox Pulse Ox 10/24/21 11:03 36.6 C 77 19 127/66 96 09/05/21 09:41 97 09/05/21 07:21 36.6 C 78 18 106/67 95 09/05/21 03:45 36.7 C 80 17 101/67 93 Laboratory Results Laboratory Results - last 24 hr 09/04/21 09/05/21 09/05/21 20:50 06:43 06:43 WBC 11.53 H RBC 3.08 L Hgb 9.2 L Hct 27.3 L MCV 88.6 MCH 29.9 MCHC 33.7 RDW Std Deviation 47.2 H RDW Coeff of Sue 14.5 Plt Count 263 MPV 9.5 Immature Gran % (Auto) 0.4 Neut % (Auto) 86.2 Lymph % (Auto) 5.3 Whitman % (Auto) 7.6 Eos % (Auto) 0.4 Baso % (Auto) 0.1 Neut # (Auto) 9.93 H Lymph # (Auto) 0.61 L Whitman # (Auto) 0.88 H Eos # (Auto) 0.05 Baso # (Auto) 0.01 Immature Gran # (Auto) 0.05 H Dohle Bodies 1+ PT 10.3 INR 1.0 Sodium Potassium Chloride Carbon Dioxide Anion Gap BUN Creatinine Est Cr Clr Drug Dosing Est GFR ( Amer) Est GFR (Non-Af Amer) BUN/Creatinine Ratio Glucose POC Glucose 114 H Calcium Phosphorus Magnesium Total Bilirubin Direct Bilirubin AST ALT Alkaline Phosphatase Total Creatine Kinase Total Protein Albumin Complement C3 Complement C4 Tot Complement (CH50) 09/05/21 09/05/21 06:43 06:43 WBC RBC Hgb Hct MCV MCH MCHC RDW Std Deviation RDW Coeff of Sue Plt Count MPV Immature Gran % (Auto) Neut % (Auto) Lymph % (Auto) Whitman % (Auto) Eos % (Auto) Baso % (Auto) Neut # (Auto) Lymph # (Auto) Whitman # (Auto) Eos # (Auto) Baso # (Auto) Immature Gran # (Auto) Dohle Bodies PT INR Sodium 127 L Potassium 4.3 Chloride 95 L Carbon Dioxide 17 L Anion Gap 15.0 H BUN 82 H Creatinine 3.59 H D Est Cr Clr Drug Dosing 11.2 Est GFR ( Amer) 13.7 Est GFR (Non-Af Amer) 11.8 BUN/Creatinine Ratio 22.8 H Glucose 81 POC Glucose Calcium 7.7 L Phosphorus 4.6 Magnesium 2.7 H Total Bilirubin 0.8 Direct Bilirubin 0.4 H AST 55 H ALT 19 Alkaline Phosphatase 105 Total Creatine Kinase 267 H Total Protein 5.8 L Albumin 2.1 L Complement C3 Pending Complement C4 Pending Tot Complement (CH50) Pending PG Care Time/CCT Total # of Minutes Spent Total Time Spent with Patient: Total time spent is greater than 50% in coordination of care (as documented) at patient's floor/unit and/or counseling patient: Coding Level of Care Code 76804 Subseq Hosp Care Lvl 3 Diagnoses JOAN (acute kidney injury) N17.9 Stage 3b chronic kidney disease N18.32 Ischemic cardiomyopathy I25.5 Hypertension I10
[2021-09-05 15:14] LABS: Appearance Urine Clear (Clear); Bacteria Urine Automated Negative (Negative); Bilirubin Urine Negative (Negative); Blood Urine Negative (Negative); Color Urine Yellow; Epithelial Cell Urine Auto >30 /lpf (0-5); Glucose Urine UA Negative (Negative); Ketones Urine Negative (Negative); Leukocyte Esterase Urine 1+ (Negative); Nitrite Urine Negative (Negative); Protein Urine Trace (Negative); Specific Gravity Urine 1.017 (1.000-1.030); Urobilinogen Urine Negative (Negative)
[2021-09-05 15:48] LABS: RBC Urine Automated 0-4 /hpf (0-4)
--- NOTE | 2021-09-05 16:58 | Cardiology Progress Note ---
Date of Service September 05, 2021 Assessment & Plan (1) Non-ST elevation (NSTEMI) myocardial infarction: (2) CAD (coronary artery disease): (3) Ischemic cardiomyopathy: (4) Dyslipidemia: (5) Hypertension: Plan: ASSESSMENT/PLAN: 1. NSTEMI: No further angina. Had residual CAD within the circumflex and RCA. Continue dual anti-platelet therapy for at least 1 year, possibly longer. Aspirin 81 mg daily indefinitely. Continue high-intensity statin therapy. Co ntinue carvedilol. 2. CAD: maid supervisor, Dr. Jimenez, suggested consideration of staged PCI of RCA and circumflex. No angina or heart failure symptoms. Given acute kidney injury on baseline CKD, and the fact that she is asymptomatic, would not recommend further PCI at this time. Recommend medical therapy for now. Continue anti-platelet, high-intensity statin therapy, beta-lala. 3. Dyslipidemia: Continue high-intensity statin therapy. 4. Hypertension: Blood pressure has been intermittently hypotensive. Carvedilol was initiated today in place of metoprolol. Continue carvedilol. Would hold for systolic blood pressure less than 90 or symptomatic hypotension. 5. Ischemic cardiomyopathy: No significant improvement in LV systolic function on repeat limited echo. Recommend LifeVest on discharge. If no significant improvement after 1 month, would consider ICD for primary prevention. She has been seen by Dr. Marks. Carvedilol initiated today. No YANG-inhibitor or Entresto due to worsening renal function. She appears euvolemic. 6. Acute kidney injury on baseline CKD: This is being managed by Nephrology. Creatinine continues to increase. 7. Disposition: Dr. Marks to resume her cardiology care. Would recommend follow-up with Dr. Marks to also help facilitate potential ICD in 30-40 days post DC. Please call with any other questions or concerns. Recommend cardiac rehabilitation on discharge. Admission and Anticipated Discharge Date Admission Date: September 02, 2021 Subjective She was seen this morning in her hospital room. She denies chest pain, shortness of breath, syncope, near-syncope, palpitations. She has not had any issues with her right radial cath site. She states that her bilateral upper extremity ecchymotic areas are from tourniquets/lab draws. She was alone in her hospital room. Review of systems: As above. Physical Exam Physical Exam: Gen.: No acute distress. Alert and oriented. HEENT: Anicteric sclera. Neck: No JVD Cardiac: Regular. Normal S1-S2. No murmurs, rubs, or gallops. Pulmonary: Clear to auscultation bilaterally without wheezes, rales, or rhonchi. Abdomen: Soft, nontender, nondistended, with normoactive bowel sounds. No bruits noted. Extremities: 2+ radial pulses bilaterally. Bilateral upper extremities ecchymotic. Right radial cath site without hematoma. 2+ posterior tibialis pulses bilaterally. No edema or cyanosis. Psychiatric: Affect appears appropriate. Results & Data ([facility]) Vital Signs (Past 12 Hours) Vital Signs Temp Pulse Resp BP BP Pulse Ox Pulse Ox 09/05/21 15:12 36.7 C 71 18 96/60 L 97 09/05/21 11:03 36.6 C 77 19 127/66 96 09/05/21 09:41 97 09/05/21 07:21 36.6 C 78 18 106/67 95 Laboratory Results Laboratory Results - last 24 hr 09/04/21 09/05/21 09/05/21 20:50 06:43 06:43 WBC 11.53 H RBC 3.08 L Hgb 9.2 L Hct 27.3 L MCV 88.6 MCH 29.9 MCHC 33.7 RDW Std Deviation 47.2 H RDW Coeff of Sue 14.5 Plt Count 263 MPV 9.5 Immature Gran % (Auto) 0.4 Neut % (Auto) 86.2 Lymph % (Auto) 5.3 Tyler % (Auto) 7.6 Eos % (Auto) 0.4 Baso % (Auto) 0.1 Neut # (Auto) 9.93 H Lymph # (Auto) 0.61 L Tyler # (Auto) 0.88 H Eos # (Auto) 0.05 Baso # (Auto) 0.01 Immature Gran # (Auto) 0.05 H Dohle Bodies 1+ PT 10.3 INR 1.0 Sodium Potassium Chloride Carbon Dioxide Anion Gap BUN Creatinine Est Cr Clr Drug Dosing Est GFR ( Amer) Est GFR (Non-Af Amer) BUN/Creatinine Ratio Glucose POC Glucose 114 H Calcium Phosphorus Magnesium Total Bilirubin Direct Bilirubin AST ALT Alkaline Phosphatase Total Creatine Kinase Total Protein Albumin Urine Color Urine Appearance Urine pH Ur Specific [place] Urine Protein Urine Glucose (UA) Urine Ketones Urine Blood Urine Nitrite Urine Bilirubin Urine Urobilinogen Ur Leukocyte Esterase Urine WBC (Auto) Urine RBC (Auto) U Hyaline Cast (Auto) U Epithel Cells (Auto) Urine Bacteria (Auto) Urine Yeast Complement C3 Complement C4 Tot Complement (CH50) 09/05/21 09/05/21 09/05/21 06:43 06:43 14:15 WBC RBC Hgb Hct MCV MCH MCHC RDW Std Deviation RDW Coeff of Sue Plt Count MPV Immature Gran % (Auto) Neut % (Auto) Lymph % (Auto) Tyler % (Auto) Eos % (Auto) Baso % (Auto) Neut # (Auto) Lymph # (Auto) Tyler # (Auto) Eos # (Auto) Baso # (Auto) Immature Gran # (Auto) Dohle Bodies PT INR Sodium 127 L Potassium 4.3 Chloride 95 L Carbon Dioxide 17 L Anion Gap 15.0 H BUN 82 H Creatinine 3.59 H D Est Cr Clr Drug Dosing 11.2 Est GFR ( Amer) 13.7 Est GFR (Non-Af Amer) 11.8 BUN/Creatinine Ratio 22.8 H Glucose 81 POC Glucose Calcium 7.7 L Phosphorus 4.6 Magnesium 2.7 H Total Bilirubin 0.8 Direct Bilirubin 0.4 H AST 55 H ALT 19 Alkaline Phosphatase 105 Total Creatine Kinase 267 H Total Protein 5.8 L Albumin 2.1 L Urine Color Yellow Urine Appearance Clear Urine pH 5.0 Ur Specific [place] 1.017 Urine Protein Trace H Urine Glucose (UA) Negative Urine Ketones Negative Urine Blood Negative Urine Nitrite Negative Urine Bilirubin Negative Urine Urobilinogen Negative Ur Leukocyte Esterase 1+ H Urine WBC (Auto) 5-10 H Urine RBC (Auto) 0-4 U Hyaline Cast (Auto) 1-5 U Epithel Cells (Auto) >30 H Urine Bacteria (Auto) Negative Urine Yeast Not Reportable Complement C3 Pending Complement C4 Pending Tot Complement (CH50) Pending Diagnostic Findings Telemetry personally reviewed: Sinus rhythm. Brief episode of nonsustained atrial tachycardia this morning. Echo report reviewed from 09/04/2021: Severely reduced LV systolic function. EF 25-30%. Akinesis involving mid and distal anterior wall, adjacent anteroseptum, adjacent anterolateral wall, and entire apex. Limited 2D echo. Cardiac catheterization 09/02/2021: Mid LAD diffuse 80%. Ostial D1 100%. Mid circumflex 80%. Mid RCA 70%. Underwent PCI of D1 and LAD with 2.5 x 15 and 2.5 x 18 mm NICOL within LAD and 2.5 x 30 mm NICOL in D1. Medications Administered Current Inpatient Medications Acetaminophen (Acetaminophen 325 Mg Tab) 650 mg PO Q4H PRN PRN Reason: Pain or Fever Stop: 10/02/21 10:08 Albuterol (Albuterol Hfa 8 Gm Inhaler) 2 puffs INH Q4H PRN PRN Reason: Wheezing Stop: 10/02/21 13:30 Ascorbic Acid (Ascorbic Acid 500 Mg Tab) 500 mg PO QAM [facility] Stop: 10/03/21 08:59 Last Admin: 09/05/21 09:19 Dose: 500 mg Documented by: Aspirin (Aspirin 81 Mg Ectab) 81 mg PO QAM [facility] Stop: 10/03/21 08:59 Last Admin: 09/05/21 09:19 Dose: 81 mg Documented by: Atorvastatin Calcium (Atorvastatin 40 Mg Tab) 80 mg PO QAM [facility] Stop: 10/03/21 08:59 Last Admin: 09/05/21 09:19 Dose: 80 mg Documented by: Carvedilol (Carvedilol 3.125 Mg Tab) 3.125 mg PO BID [facility] Stop: 10/05/21 20:59 Clopidogrel Bisulfate (Clopidogrel Bisulfate 75 Mg Tab) 75 mg PO QAM [facility] Stop: 10/03/21 08:59 Last Admin: 09/05/21 09:18 Dose: 75 mg Documented by: Cyanocobalamin (Cyanocobalamin 500 Mcg Tablet (Vitamin B-12)) 1,000 mcg PO QAM [facility] Stop: 10/03/21 08:59 Last Admin: 09/05/21 09:18 Dose: 1,000 mcg Documented by: Diclofenac Sodium (Diclofenac Sod 1% Gel 100 Gm Tube) 2 gm EXT QID PRN PRN Reason: Pain Stop: 10/02/21 13:30 Fluticasone/Vilanterol (Fluticasone/Vilanterol 200/25mcg 14 Puffs/Inhaler) 1 puffs INH DAILY [facility] Stop: 10/03/21 08:59 Last Admin: 09/05/21 09:13 Dose: 1 puffs Documented by: Gabapentin (Gabapentin 100 Mg Cap) 100 mg PO BID [facility] Stop: 10/02/21 20:59 Last Admin: 09/05/21 09:18 Dose: 100 mg Documented by: Hydroxychloroquine Sulfate (Hydroxychloroquine Sulfate 200 Mg Tab) 200 mg PO QAM [facility] Stop: 10/03/21 08:59 Last Admin: 09/05/21 09:18 Dose: 200 mg Documented by: Ondansetron HCl 6 mg/ Dextrose 53 mls @ 200 mls/hr IV Q6H PRN PRN Reason: Nausea And Vomiting Stop: 10/03/21 12:44 Last Infusion: 09/03/21 13:27 Dose: Infused Documented by: Pantoprazole Sodium 40 mg/ (Syringe) 10 mls @ 5 mls/min IV BID [facility] Stop: 10/03/21 15:59 Last Admin: 09/05/21 09:19 Dose: 5 mls/min Documented by: Levalbuterol HCl (Levalbuterol Hcl 0.63 Mg/3 Ml Neb) 0.63 mg INH QID PRN PRN Reason: Wheezing Stop: 10/02/21 13:30 Levothyroxine Sodium (Levothyroxine Sodium 100 Mcg Tablet) 100 mcg PO DAILYBB [facility] Stop: 10/03/21 06:29 Last Admin: 09/05/21 06:22 Dose: 100 mcg Documented by: Methylprednisolone (Methylprednisolone 4 Mg Tab) 4 mg PO DAILY [facility] Stop: 10/04/21 08:59 Last Admin: 09/05/21 09:17 Dose: 4 mg Documented by: Miscellaneous (Gentamicin- Order Awaiting Action) 1 ea N/A QS [facility] Stop: 10/02/21 15:59 Last Admin: 09/05/21 09:14 Dose: Not Given Documented by: Morphine Sulfate (Morphine Sulfate 2 Mg/Ml Carp) 2 mg IV Q30M PRN PRN Reason: Chest Pain Stop: 09/16/21 10:08 Nitroglycerin (Nitroglycerin Sl 0.4 Mg/Tab Tab) 0.4 mg SL UD PRN PRN Reason: Chest Pain Stop: 10/02/21 10:08 Xeljanz 5mg ~ Non- Formulary Patient's Own Med 1 ea PO DAILY [facility] Stop: 10/03/21 12:29 Last Admin: 09/05/21 09:15 Dose: 1 tab Documented by: Polyethylene Glycol (Polyethylene (Miralax) 17 Gm Pack) 17 gm PO DAILY PRN PRN Reason: Constipation Stop: 10/02/21 10:08 Psyllium Hydrophilic Mucilloid (Psyllium 58.6% Powder Packet) 1 pkt PO DAILY PRN PRN Reason: constipation Stop: 10/06/21 08:59 Sennosides (Senna 8.6 Mg Tab) 8.6 mg PO HS PRN PRN Reason: Constipation Stop: 10/02/21 13:30 Sodium Bicarbonate (Sodium Bicarbonate 650 Mg Tab) 1,300 mg PO BID [facility] Stop: 10/05/21 09:29 Last Admin: 09/05/21 10:52 Dose: 1,300 mg Documented by: Tramadol HCl (Tramadol Hcl 50 Mg Tablet) 50 mg PO Q8H PRN PRN Reason: Pain Stop: 10/02/21 13:30 Last Admin: 09/05/21 09:18 Dose: 50 mg Documented by: Ursodiol (Ursodiol 300 Mg Cap) 300 mg PO BID [facility] Stop: 10/02/21 20:59 Last Admin: 09/05/21 09:17 Dose: 300 mg Documented by: PG Care Time/CCT Total # of Minutes Spent Total Time Spent with Patient: Total time spent is greater than 50% in coordination of care (as documented) at patient's floor/unit and/or counseling patient: Coding Level of Care Code 27144 Subseq Hosp Care Lvl 3 Diagnoses Non-ST elevation (NSTEMI) myocardial infarction I21.4 CAD (coronary artery disease) I25.10 Ischemic cardiomyopathy I25.5 Dyslipidemia E78.5 Hypertension I10
--- NOTE | 2021-09-05 18:01 | Hospitalist Progress Note ---
Date of Service September 05, 2021 Assessment & Plan (1) Non-ST elevation (NSTEMI) myocardial infarction: Plan: Angelika is a 75-year-old female with a notable past medical history of hypertension, rheumatoid arthritis, degenerative disc disease who presented to [facility] on 09/02 for evaluation of chest pain, fatigue, and shortness of breath, subsequently found to have evidence of NSTEMI. She is hemodynamically stable. Concern for ACS / NSTEMI In the setting of approximately 1 day of chest pain, diaphoresis, nausea, and shortness of breath; also in the setting of significant life stress with 's cancer diagnosis ECG with evidence of anterolateral T wave inversions, plus Initial troponin elevated to 21.4 Chest x-ray pulmonary edema Ongoing chest pain, shortness of breath, and nausea Cardiology consulted in ED, PCI 2 overlapping mid LAD NICOL, D1 NICOL, concern for additional disease in RCA and Circ with possible staged pci in the future --however given onset of renal failure would not recommend further PCI at this time. Recommend medical therapy for now. Continue anti-platelet, high- intensity statin therapy, beta-lala. TTE with significantly depressed EF 25% dual antiplatelet therapy, atorvastatin 80 carvedilol 3.25 twice daily Nitro, morphine, ECG PRN w/ chest pain (2) Acute kidney injury: Plan: acute kidney injury from dye load and some pre renal issues aneta causing ATN, Dr Chaparro did see in consult suspect ATN in the setting of ACS and hypotension nonoliguric, renal ultrasound no obstruction complement levels pending (3) Melena: Plan: has had 2 melena stools, hgb was 11, on DAPT for recent stent, iv ppi hemodynamically stable (4) Hypertension: Plan: Pt will be converted to carvedilol, holding spironolactone in the face of JOAN, was given Lasix post procedure due to concern for heart failure hypoxemia (5) CKD (chronic kidney disease): Plan: now with acute kidney injury with CKD3 or 4, did have dye load stopping spironolactone, follow recommendation of Nephrology (6) Rheumatoid arthritis: Plan: Pt has immune suppressing medications, plaquenil, daily prednisone, tolfacitinib (7) Hypothyroidism: Plan: remains on synthoid 100mcg (8) Asthma: Plan: does not seem to have flare at this time more likley sob is pulmonary edema (9) Osteoporosis: (10) Disc degeneration, lumbar: Plan: Code: FULL CODE -admitting team discussed with patient. Dispo: PCU Diet: HH diet following PCI Consults: Cardiology PPX: SCDs consider heparin sc Admission and Anticipated Discharge Date Admission Date: September 02, 2021 Subjective Patient reportedly feels well she has been tapered off oxygen she is fairly dyspneic with exertion as would be expected with her cardiomyopathy he does have some acute kidney injury with chronic kidney disease managed by her associate professor of biology locally Review of Systems Review of Systems: Mild distress and fatigue no headache, no visual changes no speech or swallowing issues no further chest pain, pressure or palpitations Shortness of breath accessory muscle use some wheezes no abdominal pain, does have nausea no vomiting, dark stools no dysuria, hematuria or frequency no focal joint pain or swelling no back pain, CVA tenderness or radicular pain no bruising, bleeding or rashes no focal signs of weakness or numbness or altered sensation no complaints of anxiety or depression.. Physical Exam Physical Exam: The patient appeared ill and frail Vital signs as documented. Head exam is normocephalic atraumatic Neck is without JVD, thyromegaly, or carotid bruits. Lungs only scant rales at the bases Cardiac exam, Rhythm is regular.. moe Abdominal exam reveals normal bowel sounds, soft non tender, no masses Extremities are trace edematous bilaterally and both pedal pulses are present Neurologic exam is alert and oriented, no focal loss of strength or sensation Skin is with changes of chronic steroid use Psychologically is without concerns for anxiety or depression Results & Data Results & Data ([facility]) Vital Signs (Past 12 Hours) Vital Signs Temp Pulse Pulse Resp BP BP Pulse Ox 09/05/21 15:12 98.1 F 71 18 96/60 L 97 09/05/21 15:00 70 09/05/21 11:03 97.9 F 77 19 127/66 96 09/05/21 09:41 09/05/21 07:21 97.9 F 78 18 106/67 95 Pulse Ox 09/05/21 15:12 09/05/21 15:00 09/05/21 11:03 09/05/21 09:41 97 09/05/21 07:21 PG Care Time/CCT Total # of Minutes Spent Total Time Spent with Patient: Total time spent is greater than 50% in coordination of care (as documented) at patient's floor/unit and/or counseling patient: Coding Level of Care Code 24751 Subseq Hosp Care Lvl 2 Diagnoses Non-ST elevation (NSTEMI) myocardial infarction I21.4 Acute kidney injury N17.9 Melena K92.1 Hypertension I10 CKD (chronic kidney disease) N18.9 Rheumatoid arthritis M06.9 Hypothyroidism E03.9 Asthma J45.909 Osteoporosis M81.0 Disc degeneration, lumbar M51.36
[2021-09-05] MEDS: carvediloL 3.125 MG TAB PO SCH (20:46)
[2021-09-05] MEDS: SALINE NAE SCH (20:47)
[2021-09-05] MEDS: GENTAMICIN NAE SCH (20:47)
[2021-09-06] MEDS: LEVOTHYROXINE SODIUM 100 MCG TABLET PO SCH (05:59)
[2021-09-06 08:32] LABS: Hematocrit (blood only) 24.4 % (37-47); Hemoglobin 8.3 g/dL (12.0-16.0); Mean Corpuscular Volume 88.1 fL (80-100); Mean Platelet Volume 9.8 fL (7.4-10.4); Platelet Count 253 K/uL (130-400); RDW Coefficient of Variation 14.4 % (11.5-14.5); RDW Standard Deviation 46.8 fL (36.4-46.3); Red Blood Count 2.77 M/uL (4.2-5.4); White Blood Count 11.84 K/uL (4.8-10.8)
[2021-09-06 08:57] LABS: Eosinophils # (auto) 0.02 K/uL (0-0.5); Eosinophils % (auto) 0.2 %; Immature Granulocytes # (auto) 0.06 K/uL (0.00-0.02); Immature Granulocytes % (auto) 0.5 %; Lymphocytes # (auto) 0.32 K/uL (1.2-3.4); Lymphocytes % (auto) 2.7 %; Monocytes # (auto) 0.86 K/uL (0.11-0.59); Monocytes % (auto) 7.3 %; Neutrophils # (auto) 10.58 K/uL (1.4-6.5); Neutrophils % (auto) 89.3 %; Toxic Granulation 1+; Toxic Vacuolation 2+
--- NOTE | 2021-09-06 09:28 | Nephrology Progress Note ---
Date of Service September 06, 2021 Assessment & Plan (1) JOAN (acute kidney injury): Plan: Clinically consistent with suspected ATN in the setting of ACS and hypotension. Non-oliguric. Volume status acceptable. Metabolic profile pending this AM. No emergent indication for dialysis. Medications are appropriately dosed for kidney dysfunction. C3/C4 pending. Clinical presentation more consistent with ATN following catheterization than with atheroembolic disease. Document strict I/O's and repeat metabolic profile tomorrow AM. For hyponatremia, free water restriction 1 L/d ordered. Oral NaHCO3 BID ordered for NAGMA + dysnatremia. (2) Stage 3b chronic kidney disease: Plan: Baseline creatinine 1.6-2.0 mg/dL attributed to microvascular disease and history of NSAID use. Prior imaging and records from Dr. Arellano were reviewed this AM. (3) Ischemic cardiomyopathy: Plan: Volume status remains acceptable. Maintain a continued even to slightly negative fluid balance. I discussed the plan of care with Dr. Marks this AM. (4) Hypertension: Plan: BP acceptable. MAP goal >65 in setting of JOAN. Spironolactone held. Atenolol switched to metoprolol. YANG/ARB deferred at this time due to JOAN and hypotension. Patient also did not tolerate well in the past due to cough. (5) Anemia: Plan: Hgb continues to trend down. Iron profile to be updated with next labs. Venofer 200 mg IV and Epogen 4000 units will be provided now. Admission and Anticipated Discharge Date Admission Date: September 02, 2021 Subjective No acute events overnight. Angelika continues to report some fatigue and limited activity tolerance. Dyspnea with minimal exertion. No dyspnea at rest. No orthopnea or PND. No chest pain or palpitations. No bowel movement today. Denies constipation. Denies blood in stool yesterday AM. Review of Systems Review of Systems: All systems reviewed & are unremarkable except as noted in HPI & below Physical Exam Constitutional: well developed; no acute distress Eyes: no scleral abnormality and no corneal abnormality ENMT: Mouth: no oral mucosal abnormality and oral mucous membranes not dry Neck: normal visual inspection and trachea midline Respiratory: normal respiratory effort Auscultation: lungs clear to auscultation bilaterally Cardiovascular: Rate/Rhythm: regular rate Heart Sounds: normal S1 and normal S2 Extremities: no edema Musculoskeletal: Extremities: no cyanosis and no clubbing Skin: + turgor decreased and + ecchymosis Neurologic: Motor/Sensory: no tremor and no asterixis Psychiatric: Orientation: alert and oriented x 3 Results & Data ([facility]) Vital Signs (Past 12 Hours) Vital Signs Temp Pulse Pulse Resp BP Pulse Ox 09/06/21 07:29 66 09/06/21 06:41 36.7 C 67 17 110/62 95 09/06/21 04:02 36.6 C 73 16 121/73 95 09/05/21 22:34 37.2 C 77 18 109/69 93 Laboratory Results Laboratory Results - last 24 hr 09/05/21 09/06/21 09/06/21 14:15 08:13 08:13 WBC 11.84 H RBC 2.77 L Hgb 8.3 L Hct 24.4 L MCV 88.1 MCH 30.0 MCHC 34.0 RDW Std Deviation 46.8 H RDW Coeff of Sue 14.4 Plt Count 253 MPV 9.8 Immature Gran % (Auto) 0.5 Neut % (Auto) 89.3 Lymph % (Auto) 2.7 [place] % (Auto) 7.3 Eos % (Auto) 0.2 Baso % (Auto) 0.0 Neut # (Auto) 10.58 H Lymph # (Auto) 0.32 L [place] # (Auto) 0.86 H Eos # (Auto) 0.02 Baso # (Auto) 0.00 Immature Gran # (Auto) 0.06 H Toxic Granulation 1+ Toxic Vacuolation 2+ Sodium Pending Potassium Pending Chloride Pending Carbon Dioxide Pending Anion Gap Pending BUN Pending Creatinine Pending Est Cr Clr Drug Dosing Pending Est GFR ( Amer) Pending Est GFR (Non-Af Amer) Pending BUN/Creatinine Ratio Pending Glucose Pending Calcium Pending Urine Color Yellow Urine Appearance Clear Urine pH 5.0 Ur Specific [place] 1.017 Urine Protein Trace H Urine Glucose (UA) Negative Urine Ketones Negative Urine Blood Negative Urine Nitrite Negative Urine Bilirubin Negative Urine Urobilinogen Negative Ur Leukocyte Esterase 1+ H Urine WBC (Auto) 5-10 H Urine RBC (Auto) 0-4 U Hyaline Cast (Auto) 1-5 U Epithel Cells (Auto) >30 H Urine Bacteria (Auto) Negative Urine Yeast Not Reportable PG Care Time/CCT Total # of Minutes Spent Total Time Spent with Patient: Total time spent is greater than 50% in coordination of care (as documented) at patient's floor/unit and/or counseling patient: Coding Level of Care Code 52283 Subseq Hosp Care Lvl 3 Diagnoses JOAN (acute kidney injury) N17.9 Stage 3b chronic kidney disease N18.32 Ischemic cardiomyopathy I25.5 Hypertension I10 Anemia D64.9
[2021-09-06] MEDS: PANTOprazole 40 MG in SYRINGE 0 ML IV SCH ×2 (09:29→20:39)
[2021-09-06] MEDS: SODIUM BICARBONATE 650 MG TAB PO SCH ×3 (09:29→20:40)
[2021-09-06] MEDS: GABAPENTIN 100 MG CAP PO SCH ×2 (09:30→20:39)
[2021-09-06] MEDS: ursodioL 300 MG CAP PO SCH ×2 (09:30→22:05)
[2021-09-06] MEDS: carvediloL 3.125 MG TAB PO SCH ×2 (09:30→20:38)
[2021-09-06] MEDS: CYANOCOBALAMIN 500 MCG TABLET (VITAMIN B-12) PO SCH (09:30)
[2021-09-06] MEDS: ATORVASTATIN 40 MG TAB PO SCH (09:31)
[2021-09-06] MEDS: ASCORBIC ACID 500 MG TAB PO SCH (09:31)
[2021-09-06] MEDS: CLOPIDOGREL BISULFATE 75 MG TAB PO SCH (09:31)
[2021-09-06] MEDS: HYDROXYCHLOROQUINE SULFATE 200 MG TAB PO SCH (09:31)
[2021-09-06] MEDS: ASPIRIN 81 MG ECTAB PO SCH (09:31)
[2021-09-06] MEDS: methylPREDNISolone 4 MG TAB PO SCH (09:31)
[2021-09-06] MEDS: FLUTICASONE/VILANTEROL 200/25MCG 14 PUFFS/INHALER INH SCH (09:32)
[2021-09-06] MEDS: XELJANZ 5 MG PO SCH (09:33)
[2021-09-06] MEDS: SALINE NAE SCH ×3 (09:34→20:41)
[2021-09-06] MEDS: GENTAMICIN NAE SCH ×3 (09:34→20:41)
[2021-09-06] MEDS: traMADol HCL 50 MG TABLET PO PRN ×2 (09:38→20:38)
--- NOTE | 2021-09-06 09:39 | Cardiology Progress Note ---
Date of Service September 06, 2021 Assessment & Plan (1) Non-ST elevation (NSTEMI) myocardial infarction: (2) CAD (coronary artery disease): (3) Dyslipidemia: (4) Ischemic cardiomyopathy: (5) Hypertension: (6) JOAN (acute kidney injury): Plan: ASSESSMENT/PLAN: 1. NSTEMI: No further angina. Had residual CAD within the circumflex and RCA. Has significant and ongoing left ventricular dysfunction. 2. CAD: Although she has residual coronary artery disease it is not causing symptoms and at the moment we do not want to consider intervention with her left ventricular dysfunction and her kidney injury. 3. Dyslipidemia: Continue high-intensity statin therapy. 4. Hypertension: Blood pressure has been adequate although we do not have much room for titration of medications. 5. Ischemic cardiomyopathy: No significant improvement in LV systolic function on repeat limited echo. She will need a LifeVest at discharge, hopefully will have some long-term improvement. 6. Acute kidney injury on baseline CKD: This is being managed by Nephrology. Her creatinine has been increasing probably as a result of a dye load and low cardiac output. Today's creatinine not yet available. Admission and Anticipated Discharge Date Admission Date: September 02, 2021 Subjective She has no specific complaints today. She denies shortness of breath, she is feeling fatigued but has no chest discomfort, lightheadedness or dizziness. Physical Exam Physical Exam: Constitutional: Alert, cooperative and in no distress. HEENT: Unremarkable Neck: No jugular venous distention, carotid pulses are normal and equal bilaterally without bruits. Pulmonary: Clear to auscultation bilaterally. Cardiac: Regular rhythm with no murmur, gallop or rub. Abdomen: Soft, nontender with normal bowel sounds. Extremities: No edema. Distal pulses intact. Neurologic: No focal findings. Gait is steady. Skin: No rash, she does have ecchymosis on both arms, no petechiae. Results & Data ([facility]) Vital Signs (Past 12 Hours) Vital Signs Temp Pulse Pulse Resp BP Pulse Ox 09/06/21 07:29 66 09/06/21 06:41 36.7 C 67 17 110/62 95 09/06/21 04:02 36.6 C 73 16 121/73 95 09/05/21 22:34 37.2 C 77 18 109/69 93 Laboratory Results CBC 09/06/21 Range/Units 08:13 WBC 11.84 H (4.8-10.8) K/uL RBC 2.77 L (4.2-5.4) M/uL Hgb 8.3 L (12.0-16.0) g/dL Hct 24.4 L (37-47) % Plt Count 253 (130-400) K/uL Neut # (Auto) 10.58 H (1.4-6.5) K/uL Lymph # (Auto) 0.32 L (1.2-3.4) K/uL [place] # (Auto) 0.86 H (0.11-0.59) K/uL Eos # (Auto) 0.02 (0-0.5) K/uL Baso # (Auto) 0.00 (0-0.2) K/uL Intake and Output 09/05/21 09/06/21 09/06/21 22:59 06:59 14:59 Intake Total 220 / 770 200 / 770 Output Total 0 / 500 500 / 500 Balance 220 / 270 -300 / 270 Intake: Oral 220 / 770 200 / 770 Output: Urine 0 / 500 500 / 500 Other: Weight 59.4 kg Weight Measurement Method Standing Scale Diagnostic Findings Telemetry: Sinus rhythm, no significant arrhythmia PG Care Time/CCT Total # of Minutes Spent Total Time Spent with Patient: Total time spent is greater than 50% in coordination of care (as documented) at patient's floor/unit and/or counseling patient: Coding Level of Care Code 75063 Subseq Hosp Care Lvl 3 Diagnoses Non-ST elevation (NSTEMI) myocardial infarction I21.4 CAD (coronary artery disease) I25.10 Ischemic cardiomyopathy I25.5 Dyslipidemia E78.5 Hypertension I10 JOAN (acute kidney injury) N17.9
[2021-09-06 09:43] LABS: BUN Creatinine Ratio 26.6 (10-20); Calcium 6.9 mg/dl (8.5-10.1); Est GFR (African American) 15.1 ml/min; Potassium 4.3 mmol/L (3.5-5.1)
[2021-09-06] MEDS ORDERED: EPOETIN ALFA 4,000 UNIT/ML VIAL SQ ONE (10:00)
[2021-09-06] MEDS ORDERED: IRON SUCROSE 200 MG in 0.9 % SODIUM CHLORIDE 100 ML IV ONE (10:00)
--- NOTE | 2021-09-06 10:18 | Hospitalist Progress Note ---
Date of Service September 06, 2021 Assessment & Plan (1) Non-ST elevation (NSTEMI) myocardial infarction: Plan: Angelika is a 75-year-old female with a notable past medical history of hypertension, rheumatoid arthritis, degenerative disc disease who presented to [facility] on 09/02 for evaluation of chest pain, fatigue, and shortness of breath, subsequently found to have evidence of NSTEMI. She is hemodynamically stable. NSTEMI In the setting of approximately 1 day of chest pain, diaphoresis, nausea, and shortness of breath; also in the setting of significant life stress with 's cancer diagnosis ECG with evidence of anterolateral T wave inversions, plus Initial troponin elevated to 21.4 Chest x-ray pulmonary edema Cardiology consulted in ED, PCI 2 overlapping mid LAD NICOL, D1 NICOL, concern for additional disease in RCA and Circ with possible staged pci in the future --however given onset of renal failure would not recommend further PCI at this time. Recommend medical therapy for now. Continue anti-platelet, high- intensity statin therapy, beta-lala. TTE with significantly depressed EF 25% dual antiplatelet therapy, atorvastatin 80 carvedilol 3.25 twice daily Nitro, morphine, ECG PRN w/ chest pain (2) Acute kidney injury: Plan: Acute kidney injury from catheterization contrast and some pre renal issues likely causing ATN Appreciate nephrology consult. Dr Chaparro did see in consult suspect ATN in the setting of ACS and hypotension nonoliguric, renal ultrasound no obstruction complement levels pending (3) Melena: Plan: Clinically improving per patient. Has had 2 melena stools, hgb was 11, now down to 8.3, on DAPT for recent stent Continue IV pantoprazole 40mg IV BID Will continue to trend Hgb. Had EPO and Venofer today. If Hgb remains < 9 tomorrow will transfuse RBCs given in setting of recent [facility]. (4) Hypertension: Plan: Pt will be converted to carvedilol, holding spironolactone in the face of JOAN, was given Lasix post procedure due to concern for heart failure hypoxemia (5) CKD (chronic kidney disease): Plan: now with acute kidney injury with CKD3 or 4, did have dye load stopping spironolactone, follow recommendation of Nephrology (6) Rheumatoid arthritis: Plan: Pt has immune suppressing medications, Plaquenil, daily prednisone, tofacitinib. No active flare (7) Hypothyroidism: Plan: TSH with AM labs Remains on levothyroxine 100mcg PO daily (8) Asthma: Plan: No exacerbation Continue maintenance inhaler with symbicort or hospital formulary equivalent (9) Osteoporosis: (10) Disc degeneration, lumbar: Plan: Code: FULL CODE -admitting team discussed with patient. Dispo: Continue on PCU given continued drop in Hgb Diet: HH diet VTE Prophylaxis - deferred in setting of requiring DAPT and continued drop in Hgb with melena. Admission and Anticipated Discharge Date Admission Date: September 02, 2021 Subjective Severe diarrhea for 2 days, stopped yesterday. Previously black stool but now normal. No history of bleeding ulcers. Remote history of blood transfusion following miscarriage but none recent. No chest pain or shortness of breath. Hgb 8.3. Venofer and EPO given by nephrology. Review of Systems Review of Systems: All systems reviewed & are unremarkable except as noted in HPI & below Physical Exam Constitutional: well developed; no acute distress Eyes: + anicteric sclerae; normal pupil size ENMT: Mouth: no oral mucosal abnormality and oral mucous membranes not dry Neck: normal visual inspection and trachea midline Respiratory: normal respiratory effort Auscultation: lungs clear to auscultation bilaterally Cardiovascular: Rate/Rhythm: regular rate Heart Sounds: no murmur Extremities: no edema Gastrointestinal (Abdomen): normal bowel sounds, soft, nontender, no hepatosplenomegaly Musculoskeletal: Extremities: no cyanosis and no clubbing Skin: + turgor decreased and + ecchymosis (bilateral upper extremities) Neurologic: moves all extremities and awake; not confused Psychiatric: Orientation: alert and oriented x 3 Results & Data Results & Data ([facility]) Vital Signs (Past 12 Hours) Vital Signs Temp Pulse Pulse Resp BP Pulse Ox 09/06/21 07:29 66 09/06/21 06:41 36.7 C 67 17 110/62 95 09/06/21 04:02 36.6 C 73 16 121/73 95 09/05/21 22:34 37.2 C 77 18 109/69 93 PG Care Time/CCT Total # of Minutes Spent Total Time Spent with Patient: Total time spent is greater than 50% in coordination of care (as documented) at patient's floor/unit and/or counseling patient: Coding Level of Care Code 36887 Subseq Hosp Care Lvl 3 Diagnoses Non-ST elevation (NSTEMI) myocardial infarction I21.4 Acute kidney injury N17.9 Melena K92.1 Hypertension I10 CKD (chronic kidney disease) N18.9 Rheumatoid arthritis M06.9 Hypothyroidism E03.9 Asthma J45.909 Osteoporosis M81.0 Disc degeneration, lumbar M51.36
--- NOTE | 2021-09-06 11:45 | XRay Report ---
XR chest 2V PA/lateral HISTORY: 75 years-old Female ?pulmonary edema acute shortness of breath COMPARISON: Chest radiograph 09/03/2021 TECHNIQUE: PA and lateral views of the chest FINDINGS: Cardiac silhouette is upper limits of normal in size. Hiatal hernia. Small pleural effusions with lef t lung base opacities. Mildly improved aeration of the right lung base. No pneumothorax or overt pulm onary edema. Surgical clips of the upper abdomen. Lumbar levoscoliosis with multilevel degenerative c hanges redemonstrated. IMPRESSION: 1. Small pleural effusions with mild left lung base atelectasis 2. No overt pulmonary edema. 3. Hiatal hernia. ACT 112: Negative or not required by law. The above report was generated using voice recognition software. It may contain grammatical, syntax o r spelling errors. Electronically signed by: Prashant Fernandez M.D. 09/06/2021 11:43 AM
[2021-09-07] MEDS: LEVOTHYROXINE SODIUM 100 MCG TABLET PO SCH (05:30)
[2021-09-07 06:50] LABS: Hematocrit (blood only) 23.5 % (37-47); Hemoglobin 7.9 g/dL (12.0-16.0); Mean Corpuscular Hemoglobin 29.6 pg (25-34); Mean Corpuscular Hgb Conc 33.6 g/dL (32-36); Mean Platelet Volume 9.4 fL (7.4-10.4); Platelet Count 280 K/uL (130-400); RDW Coefficient of Variation 14.7 % (11.5-14.5); RDW Standard Deviation 47.5 fL (36.4-46.3); Red Blood Count 2.67 M/uL (4.2-5.4); White Blood Count 10.26 K/uL (4.8-10.8)
[2021-09-07] MEDS ORDERED: SODIUM CHLORIDE 0.9% 250 ML IV PRN (07:07)
[2021-09-07 07:28] LABS: Calcium 7.2 mg/dl (8.5-10.1); Creatinine Clr Calc Pharmacy 12.5 ml/min; Est GFR (African American) 15.9 ml/min; Est GFR (Non-African American) 13.7 ml/min; Potassium 3.8 mmol/L (3.5-5.1)
[2021-09-07 07:38] LABS: Ferritin 674.6 ng/ml (8-388); Thyroid Stimulating Hormone 0.912 uIu/ml (0.300-4.500)
[2021-09-07] MEDS: ATORVASTATIN 40 MG TAB PO SCH (09:05)
[2021-09-07] MEDS: XELJANZ 5 MG PO SCH (09:08)
[2021-09-07] MEDS: CYANOCOBALAMIN 500 MCG TABLET (VITAMIN B-12) PO SCH (09:09)
[2021-09-07] MEDS: HYDROXYCHLOROQUINE SULFATE 200 MG TAB PO SCH (09:09)
[2021-09-07] MEDS: methylPREDNISolone 4 MG TAB PO SCH (09:09)
[2021-09-07] MEDS: ursodioL 300 MG CAP PO SCH ×2 (09:10→20:55)
[2021-09-07] MEDS: FLUTICASONE/VILANTEROL 200/25MCG 14 PUFFS/INHALER INH SCH (09:10)
[2021-09-07] MEDS: GABAPENTIN 100 MG CAP PO SCH ×2 (09:10→20:52)
[2021-09-07] MEDS: CLOPIDOGREL BISULFATE 75 MG TAB PO SCH (09:10)
[2021-09-07] MEDS: ASPIRIN 81 MG ECTAB PO SCH (09:11)
[2021-09-07] MEDS: ASCORBIC ACID 500 MG TAB PO SCH (09:11)
[2021-09-07] MEDS: SALINE NAE SCH ×3 (09:12→20:52)
[2021-09-07] MEDS: carvediloL 3.125 MG TAB PO SCH ×2 (09:12→20:52)
[2021-09-07] MEDS: GENTAMICIN NAE SCH ×3 (09:12→20:52)
[2021-09-07] MEDS: SODIUM BICARBONATE 650 MG TAB PO SCH ×3 (09:13→20:51)
--- NOTE | 2021-09-07 10:08 | Nephrology Progress Note ---
Date of Service September 07, 2021 Assessment & Plan (1) JOAN (acute kidney injury): Plan: Clinically consistent with suspected ATN in the setting of ACS and hypotension. Non-oliguric. Volume status acceptable. Creatinine stable at 3.2 mg/dL. No emergent indication for dialysis. Medications are appropriately dosed for kidney dysfunction. C3/C4 pending. Clinical presentation more consistent with ATN following catheterization than with atheroembolic disease. Document strict I/O's and repeat metabolic profile tomorrow AM. For hyponatremia, free water restriction 1 L/d ordered. Oral NaHCO3 BID ordered for NAGMA + dysnatremia. (2) Stage 3b chronic kidney disease: Plan: Baseline creatinine 1.6-2.0 mg/dL attributed to microvascular disease and history of NSAID use. Prior imaging and records from Dr. Arellano were reviewed. (3) Ischemic cardiomyopathy: Plan: Volume status remains acceptable. Maintain a continued even to slightly negative fluid balance. (4) Hypertension: Plan: BP acceptable. MAP goal >65 in setting of JOAN. Spironolactone held. Atenolol switched to metoprolol. YANG/ARB deferred at this time due to JOAN and hypotension. Patient also did not tolerate well in the past due to cough. (5) Anemia: Plan: Hgb continues to trend down. Venofer 200 mg IV and Epogen 4000 units provided yesterday. 2 units PRBC transfusion support provided this AM. Remains on IV pantoprazole 40 mg twice daily. GI consultation may be required for evidence of UGIB. Admission and Anticipated Discharge Date Admission Date: September 02, 2021 Subjective No acute events overnight. Reports a single black, tarry bowel movement yesterday. No dyspnea or chest pain. No palpitations. Review of Systems Review of Systems: All systems reviewed & are unremarkable except as noted in HPI & below Physical Exam Constitutional: well developed; no acute distress Eyes: no scleral abnormality and no corneal abnormality ENMT: Mouth: no oral mucosal abnormality and oral mucous membranes not dry Neck: normal visual inspection and trachea midline Respiratory: normal respiratory effort Auscultation: lungs clear to auscultation bilaterally Cardiovascular: Rate/Rhythm: regular rate Heart Sounds: normal S1 and normal S2 Vessels: + JVD Extremities: no edema Musculoskeletal: Extremities: no cyanosis and no clubbing Skin: + turgor decreased and + ecchymosis Neurologic: Motor/Sensory: no tremor and no asterixis Psychiatric: Orientation: alert and oriented x 3 Results & Data ([facility]) Vital Signs (Past 12 Hours) Vital Signs Temp Pulse Pulse Pulse Resp BP BP 09/07/21 09:33 36.5 C 73 16 126/74 09/07/21 09:18 36.6 C 74 14 131/74 09/07/21 09:01 37.6 C H 72 14 117/71 09/07/21 07:58 36.8 C 75 18 09/07/21 03:27 36.5 C 71 16 121/69 09/06/21 23:09 37.0 C 83 16 118/61 09/06/21 23:00 76 BP Pulse Ox 09/07/21 09:33 98 09/07/21 09:18 97 09/07/21 09:01 98 09/07/21 07:58 118/76 96 09/07/21 03:27 96 09/06/21 23:09 92 09/06/21 23:00 Laboratory Results Laboratory Results - last 24 hr 09/06/21 09/07/21 09/07/21 16:36 06:36 06:36 WBC 10.26 RBC 2.67 L Hgb 7.9 L Hct 23.5 L MCV 88.0 MCH 29.6 MCHC 33.6 RDW Std Deviation 47.5 H RDW Coeff of Sue 14.7 H Plt Count 280 MPV 9.4 Sodium 127 L Potassium 3.8 Chloride 94 L Carbon Dioxide 23 Anion Gap 10.0 BUN 80 H Creatinine 3.18 H Est Cr Clr Drug Dosing 12.5 Est GFR ( Amer) 15.9 Est GFR (Non-Af Amer) 13.7 BUN/Creatinine Ratio 25.0 H Glucose 80 POC Glucose 125 H Calcium 7.2 L Ionized Calcium Iron 92 Transferrin 143 L Transferrin % Sat 46 Ferritin 674.6 H Albumin 2.0 L TSH 0.912 Blood Type Antibody Screen Crossmatch 09/07/21 09/07/21 06:36 07:34 WBC RBC Hgb Hct MCV MCH MCHC RDW Std Deviation RDW Coeff of Sue Plt Count MPV Sodium Potassium Chloride Carbon Dioxide Anion Gap BUN Creatinine Est Cr Clr Drug Dosing Est GFR ( Amer) Est GFR (Non-Af Amer) BUN/Creatinine Ratio Glucose POC Glucose Calcium Ionized Calcium 0.87 L Iron Transferrin Transferrin % Sat Ferritin Albumin TSH Blood Type A Positive Antibody Screen NEGATIVE Crossmatch See Detail PG Care Time/CCT Total # of Minutes Spent Total Time Spent with Patient: Total time spent is greater than 50% in coor dination of care (as documented) at patient's floor/unit and/or counseling patient: Coding Level of Care Code 19065 Subseq Hosp Care Lvl 3 Diagnoses JOAN (acute kidney injury) N17.9 Stage 3b chronic kidney disease N18.32 Ischemic cardiomyopathy I25.5 Hypertension I10 Anemia D64.9
[2021-09-07] MEDS: PANTOprazole 40 MG in SYRINGE 0 ML IV SCH ×2 (12:10→20:51)
--- NOTE | 2021-09-07 12:32 | Hospitalist Progress Note ---
Date of Service September 07, 2021 Assessment & Plan (1) Non-ST elevation (NSTEMI) myocardial infarction: Plan: Angelika is a 75-year-old female with a notable past medical history of hypertension, rheumatoid arthritis, degenerative disc disease who presented to [facility] on 09/02 for evaluation of chest pain, fatigue, and shortness of breath. NSTEMI In the setting of approximately 1 day of chest pain, diaphoresis, nausea, and shortness of breath; also in the setting of significant life stress with 's cancer diagnosis ECG with evidence of anterolateral T wave inversions, plus Initial troponin elevated to 21.4 Chest x-ray pulmonary edema Cardiology consulted in ED, PCI 2 overlapping mid LAD NICOL, D1 NICOL, concern for additional disease in RCA and Circ with possible staged pci in the future -- however given onset of renal failure would not recommend further PCI at this time. Recommend medical therapy for now. Continue anti-platelet, high- intensity statin therapy, beta-lala. TTE with significantly depressed EF 25% dual antiplatelet therapy, atorvastatin 80 carvedilol 3.25 twice daily Nitro, morphine, ECG PRN w/ chest pain (2) Acute kidney injury: Plan: Acute kidney injury from catheterization contrast and some pre renal issues likely causing ATN Appreciate nephrology consult. Dr Chaparro did see in consult suspect ATN in the setting of ACS and hypotension nonoliguric, renal ultrasound no obstruction complement levels pending Improving (3) Melena: Plan: Continue IV pantoprazole 40mg IV BID. Despite less melanic stools, hemoglobin continues to decrease (Hbg 7.9). In setting of PR will transfuse 2 units packed RBCs today. Consult GI (previous EGDs and colonoscopies with Larisa). Will continue DAPT. Stop methylprednisone, risk of continued bleeding outweighs risk of RA flare at this stage. If Hgb continues to drop will stop Plaquenil although risk of RA flare appears to be quite high if we eliminate her RA meds from patient description. (4) Hypertension: Plan: Continue carvedilol, holding spironolactone in the face of JOAN, was given Lasix post procedure due to concern for heart failure hypoxemia (5) CKD (chronic kidney disease): Plan: now with acute kidney injury with CKD3 or 4, did have dye load stopping spironolactone, follow recommendation of Nephrology (6) Rheumatoid arthritis: Plan: Pt has immune suppressing medications, Plaquenil, daily prednisone, tofacitinib. No active flare (7) Hypothyroidism: Plan: TSH with AM labs Remains on levothyroxine 100mcg PO daily (8) Asthma: Plan: No exacerbation Continue maintenance inhaler with symbicort or hospital formulary equivalent (9) Osteoporosis: (10) Disc degeneration, lumbar: Plan: Code: FULL CODE - admitting team discussed with patient. Dispo: Continue on PCU given continued drop in Hgb Diet: HH diet VTE Prophylaxis - deferred in setting of requiring DAPT and continued drop in Hgb with melena. Admission and Anticipated Discharge Date Admission Date: September 02, 2021 Subjective Melena improving but still continuing. Reports one black bowel movement since yesterday. No abdominal pain, nausea or vomiting. No dizziness, chest pain or shortness of breath. Review of Systems Review of Systems: All systems reviewed & are unremarkable except as noted in HPI & below Physical Exam Constitutional: well developed; no acute distress Eyes: + anicteric sclerae; normal pupil size ENMT: Mouth: no oral mucosal abnormality and oral mucous membranes not dry Neck: normal visual inspection and trachea midline Respiratory: normal respiratory effort Auscultation: lungs clear to auscultation bilaterally Cardiovascular: Rate/Rhythm: regular rate Heart Sounds: no murmur Extremities: + pedal edema (trace ankle b/l equal) Gastrointestinal (Abdomen): normal bowel sounds, soft, nontender, no hepatosplenomegaly Musculoskeletal: Extremities: no cyanosis and no clubbing Skin: + turgor decreased and + ecchymosis (bilateral upper extremities) Neurologic: moves all extremities and awake; not confused Psychiatric: Orientation: alert and oriented x 3 Results & Data Results & Data ([facility]) Vital Signs (Past 12 Hours) Vital Signs Temp Pulse Pulse Pulse Resp BP BP 09/07/21 12:05 36.6 C 75 16 09/07/21 11:20 67 09/07/21 11:03 36.7 C 73 14 119/73 09/07/21 10:03 36.6 C 71 12 118/73 09/07/21 09:33 36.5 C 73 16 126/74 09/07/21 09:18 36.6 C 74 14 131/74 09/07/21 09:01 37.6 C H 72 14 117/71 09/07/21 07:58 36.8 C 75 18 09/07/21 03:27 36.5 C 71 16 121/69 BP BP Pulse Ox 09/07/21 12:05 121/73 96 09/07/21 11:20 09/07/21 11:03 94 09/07/21 10:03 97 09/07/21 09:33 98 09/07/21 09:18 97 09/07/21 09:01 98 09/07/21 07:58 118/76 96 09/07/21 03:27 96 PG Care Time/CCT Total # of Minutes Spent Total Time Spent with Patient: Total time spent is greater than 50% in coordination of care (as documented) at patient's floor/unit and/or counseling patient: Coding Level of Care Code 30997 Subseq Hosp Care Lvl 2 Diagnoses Non-ST elevation (NSTEMI) myocardial infarction I21.4 Acute kidney injury N17.9 Melena K92.1 Hypertension I10 CKD (chronic kidney disease) N18.9 Rheumatoid arthritis M06.9 Hypothyroidism E03.9 Asthma J45.909 Osteoporosis M81.0 Disc degeneration, lumbar M51.36
--- NOTE | 2021-09-07 13:28 | Gastrointestinal Consultation ---
Date of Consultation September 07, 2021 Assessment & Plan (1) Anemia: (2) Melena: This is a 75 y/o female with multiple co-morbidities including CKD, RA and others admitted since 09/02 after presenting with chest pain, found to have ACS/NSTEMI undergoing cardiac cath demonstrating multi-vessel disease, is s/p PCI and has had reduced LV function and ATN/JOAN. 2 days ago had several black stools, yesterday had 1 black stool (none today) and has had a slow drop in HGB since admission 11->7.9. She's been given Venofer, Epogen, and now getting pRBC for the downtrending HGB. GI asked to evaluate the pt for concern over UGIB. She may have had UGIB given recent history; however seems to have resolved for the moment. Risk factors for GIB include recent ACS requiring antiplatelets along with chronic steroid use. Currently VSS, abd is soft, has no overt GIB at present; she does have ecchymoses on her extremities. - Pt may benefit from EGD to evaluate for potential UGI source of dark stool, anemia - Reviewed with cardiology; feels pt is acceptable risk for endoscopy - Will make NPO at midnight - Plan for EGD tomorrow - Continue IV PPI BID - Monitor and document GI output - Trend H&H, transfuse carefully given underlying LV dysfunction as per primary team/cardiology - Please correct electrolytes (Na) as able - Appreciate primary, cardiology, and nephrology teams mgmt of co-morbidities Thank you for allowing us to participate in the care of this patient. Please call with any acute changes, questions or concerns. Please see addendum below with additional recommendation from my supervising physician. Supervising Physician Co-Signing Physician Notes I saw and evaluated the patient. She has a history of atherosclerotic coronary artery disease and came in with an infarction requiring percutaneous interventions with cardiology. After the intervention she was noted to have several days of dark sticky stool which seems to be improving. Endoscopy has been requested for further evaluation. Of note the patient is presently on dual antiplatelet agent therapy. Physical examination Mild pallor of skin noted, no obvious distress no abdominal tenderness Impression: Patient presents with history of coronary artery disease underwent a recent percutaneous intervention followed by several episodes of melena. Based on the history I suspect that it may have been related to high-dose anticoag ulation around the time of her percutaneous intervention. We can certainly provide endoscopic evaluation to determine if it is safe for the patient continue with dual antiplatelet agent therapy. I discussed the risks of upper endoscopy with the patient include bleeding, infection, perforation, pain, aspiration and cardiovascular problems. Would make the patient n.p.o. at midnight please with plan to do an upper endoscopy tomorrow would also suggest the patient continue with IV proton pump inhibitor as you are doing. She will likely need to be placed on to an outpatient regimen of iron for 6 to 8 weeks to rebuild her stores as an outpatient. History of Present Illness Reason for Consultation: UGIB Requesting Physician: Raj Manning MD Attending Physician: Raj Manning MD History of Present Illness Ms. Angelika Herrera is 75 y/o female with PMhx RA on chronic steroids, Xeljanz, CKD, HTN, asthma, hypothyroidism, biliary stones on ursodiol and others admitted 09/02 after presenting with chest pain. She was found to have NSTEMI and underwent cardiac cath that day with multi-vessel CAD, underwent PCI, and tx with Integrilin drip, now on DAPT with Plavix and ASA. She has ischemic cardiomyopathy with LVEF 25-30%. Also has JOAN/suspected ATN, hyponatremia, being followed by nephrology. HGB has been slowly dropping since admission (was 11->today 7.9), crit 23.%. She had several black loose stools on 09/05 along with some abd crapming and nausea, one small black stool yesterday, and none today. GI consulted for UGIB. Pt currently feeling improved. Has 1 unit pRBC running now. Has gotten Venofer and Epogen as well. She is on PPI IV BID. She does have bruising on her arms/legs, pt states combo of steroids and tourniquets. VSS. Na is 127 today; she's on a fluid restriction per nephro. This AM she ate some breakfast and for lunch had some chicken, mashed potatoes. Denies abd pain, n/v, hematemesis, abd cramping, hematochezia, CP, SOB, syncope, dizziness, leg edema. Last EGD 2018 - gastritis Last EUS/ERCP 2018 - CBD stone/sludge, removed Allergies Allergy/AdvReac Type Severity Reaction Status Date / Time amoxicillin Allergy Intermediate SEVERE Verified 09/02/21 09:31 RHEUMATOID ARTHRITIC SYMPTOMS clavulanic acid Allergy Intermediate SEVERE Verified 09/02/21 09:31 RHEUMATOID ARTHRITIC SYMPTOMS iodine Allergy Intermediate Stage 1V Verified 09/02/21 09:31 kidney disease auranofin [From Ridaura] Allergy Mild Rash Verified 09/02/21 09:31 infliximab [From Remicade] Allergy Mild Rash Verified 09/02/21 09:31 Sulfa (Sulfonamide AdvReac Intermediate "give me Verified 09/02/21 09:31 Antibiotics) anxiety" Home Medications Medication Instructions Recorded Confirmed Type ascorbate calcium (vitamin C) 500 500 mg PO QAM 02/15/19 09/02/21 History mg tablet cyanocobalamin (vitamin B-12) 1,000 mcg PO QAM 02/15/19 09/02/21 History 1,000 mcg capsule levalbuterol HCl 0.63 mg/3 mL 0.63 mg INH QID PRN ml 02/15/19 09/02/21 History solution for nebulization (Xopenex) ursodiol 300 mg capsule 300 mg PO BID 02/15/19 09/02/21 History biotin 5,000 mcg sublingual tablet 5,000 mcg SL QAM 05/29/19 09/02/21 History docusate sodium 100 mg capsule 100 mg PO BID 09/17/19 09/02/21 History (Colace) psyllium husk 0.52 gram capsule 0.52 g PO BIDM 09/17/19 09/02/21 History (Metamucil) methylprednisolone 4 mg tablet 4 mg PO QAM tab 05/21/20 09/02/21 History hydroxychloroquine 200 mg tablet 200 mg PO QAM tab 11/16/20 09/02/21 History (Plaquenil) sennosides 8.6 mg tablet (Senokot) 8.6 mg PO HS PRN tab 11/16/20 09/02/21 History sodium chloride 1 gram tablet 1,000 mg PO QDD tab 11/18/20 09/02/21 History gentamicin sulfate (PF) 60 mg/6 mL 60 mg INHALATION UD PRN #45 ml 12/02/20 09/02/21 Rx intravenous solution spironolactone 25 mg tablet 25 mg PO QAM #90 tab 02/01/21 09/02/21 Rx gabapentin 100 mg capsule 100 mg PO BID #60 cap 02/26/21 09/02/21 Rx atenolol 25 mg tablet (Tenormin) 12.5 mg PO QAM #45 tab 04/05/21 09/02/21 Rx fluticasone 500 mcg-salmeterol 50 1 inh INH BID #3 inhaler 04/05/21 09/02/21 Rx mcg/dose blistr powdr for inhalation (Advair Diskus) levothyroxine 100 mcg tablet 100 mcg PO QAM #90 tab 04/16/21 09/02/21 Rx furosemide 20 mg tablet 10 mg PO QAM #45 tab 05/07/21 09/02/21 Rx tofacitinib 5 mg tablet (Xeljanz) 5 mg PO QAM 06/23/21 09/02/21 History albuterol sulfate 90 mcg/actuation 2 puff INH Q4H PRN #8.5 g 07/01/21 09/02/21 Rx aerosol inhaler (Ventolin HFA) tramadol 50 mg tablet 50 mg PO Q8H PRN #90 tab 08/10/21 09/02/21 Rx diclofenac sodium 1 % topical gel 2 g TOPICAL QID PRN 09/02/21 09/02/21 History (Voltaren Arthritis Pain) Patient History Medical History Choledocholithiasis Chronic kidney disease (CKD), stage III (moderate) Hypertension Intractable nausea and vomiting Skin tear of lower leg without complication 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 Russ Brambila S/P [facility] Family History Aunt Breast cancer Father Myocardial infarction Family history of diabetes mellitus Brother Family history of diabetes mellitus Brother Family history of diabetes mellitus Other No family history of adverse response to anesthesia Denies family history of Ovarian cancer Prostate cancer Colorectal cancer Social History Smoking Status: Never smoker Second Hand Exposure: No (parents smoked); Hx Alcohol Use: No Hx Substance Use: No Preferred Language: [place] Citizen Communication Ability: Effective Visual Impairment: No Limitations Hearing Ability: Normal 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 Beliefs That Will Affect Care: None marital status: Current Living Situation: Spouse Current Living Situation Comment: Lives with and son current occupational status: retired How many Children do You have: 1 Other Information That Helps Us Care for You: No Feels Safe at Home: Yes Safety Concerns: Feels Safe At This Time Childhood Exposure to Second-Hand Smoke: Yes caffeine: Yes Dental Care, Regularly: Yes Physical Activity Frequency: 3-4 Times per Week Seatbelt Use: always Sunscreen Use: Yes Assistive Devices: Cane Review of Systems Review of Systems: All systems reviewed & are unremarkable except as noted in Subjective Physical Exam Constitutional: WD/WN, vitals as above chronically ill; resting comfortably in bed Neck: trachea midline, no thyromegaly Respiratory: normal respiratory effort, lungs clear to auscultation Cardiovascular: RRR, no murmur, no edema Gastrointestinal (Abdomen): normal bowel sounds, soft, nontender, no hepatosplenomegaly Skin: no rashes, warm and dry she has ecchymosis to both arms and legs Psychiatric: A+Ox3, euthymic affect Results & Data ([facility]) Vital Signs (Past 12 Hours) Vital Signs Temp Pulse Pulse Pulse Resp BP BP 09/07/21 13:15 36.5 C 75 12 123/65 09/07/21 13:02 36.6 C 82 19 125/69 09/07/21 12:55 36.6 C 80 19 125/77 09/07/21 12:39 36.7 C 79 18 130/80 09/07/21 12:05 36.6 C 75 16 09/07/21 11:20 67 09/07/21 11:03 36.7 C 73 14 119/73 09/07/21 10:03 36.6 C 71 12 118/73 09/07/21 09:33 36.5 C 73 16 126/74 09/07/21 09:18 36.6 C 74 14 131/74 09/07/21 09:01 37.6 C H 72 14 117/71 09/07/21 07:58 36.8 C 75 18 09/07/21 03:27 36.5 C 71 16 121/69 BP BP Pulse Ox 09/07/21 13:15 94 09/07/21 13:02 94 09/07/21 12:55 95 09/07/21 12:39 95 09/07/21 12:05 121/73 96 09/07/21 11:20 09/07/21 11:03 94 09/07/21 10:03 97 09/07/21 09:33 98 09/07/21 09:18 97 09/07/21 09:01 98 09/07/21 07:58 118/76 96 09/07/21 03:27 96 Laboratory Results CXR 1. Small pleural effusions with mild left lung base atelectasis 2. No overt pulmonary edema. 3. Hiatal hernia. Diagnostic Findings 09/07/21 09/07/21 09/07/21 Range/Units 07:34 06:36 06:36 WBC 10.26 (4.8-10.8) K/uL RBC 2.67 L (4.2-5.4) M/uL Hgb 7.9 L (12.0-16.0) g/dL Hct 23.5 L (37-47) % MCV 88.0 (80-100) fL MCH 29.6 (25-34) pg MCHC 33.6 (32-36) g/dL RDW Std Deviation 47.5 H (36.4-46.3) fL RDW Coeff of Sue 14.7 H (11.5-14.5) % Plt Count 280 (130-400) K/uL MPV 9.4 (7.4-10.4) fL Sodium (136-145) mmol/L Potassium (3.5-5.1) mmol/L Chloride (98-107) mmol/L Carbon Dioxide (21-32) mmol/L Anion Gap (3-11) BUN (7-18) mg/dl Creatinine (0.6-1.2) mg/dl Est Cr Clr Drug Dosing ml/min Est GFR ( Amer) ml/min Est GFR (Non-Af Amer) ml/min BUN/Creatinine Ratio (10-20) Glucose (70-99) mg/dl POC Glucose (70-99) mg/dl Calcium (8.5-10.1) mg/dl Ionized Calcium 0.87 L (1.12-1.32) mmol/L Iron (35-150) mcg/dl Transferrin (200-360) mg/dl Transferrin % Sat (15-50) % Ferritin (8-388) ng/ml Albumin (3.4-5.0) gm/dl TSH (0.300-4.500) uIu/ml Blood Type A Positive Antibody Screen NEGATIVE Crossmatch See Detail 09/07/21 09/06/21 Range/Units 06:36 16:36 WBC (4.8-10.8) K/uL RBC (4.2-5.4) M/uL Hgb (12.0-16.0) g/dL Hct (37-47) % MCV (80-100) fL MCH (25-34) pg MCHC (32-36) g/dL RDW Std Deviation (36.4-46.3) fL RDW Coeff of Sue (11.5-14.5) % Plt Count (130-400) K/uL MPV (7.4-10.4) fL Sodium 127 L (136-145) mmol/L Potassium 3.8 (3.5-5.1) mmol/L Chloride 94 L (98-107) mmol/L Carbon Dioxide 23 (21-32) mmol/L Anion Gap 10.0 (3-11) BUN 80 H (7-18) mg/dl Creatinine 3.18 H (0.6-1.2) mg/dl Est Cr Clr Drug Dosing 12.5 ml/min Est GFR ( Amer) 15.9 ml/min Est GFR (Non-Af Amer) 13.7 ml/min BUN/Creatinine Ratio 25.0 H (10-20) Glucose 80 (70-99) mg/dl POC Glucose 125 H (70-99) mg/dl Calcium 7.2 L (8.5-10.1) mg/dl Ionized Calcium (1.12-1.32) mmol/L Iron 92 (35-150) mcg/dl Transferrin 143 L (200-360) mg/dl Transferrin % Sat 46 (15-50) % Ferritin 674.6 H (8-388) ng/ml Albumin 2.0 L (3.4-5.0) gm/dl TSH 0.912 (0.300-4.500) uIu/ml Blood Type Antibody Screen Crossmatch
[2021-09-07] MEDS: traMADol HCL 50 MG TABLET PO PRN (13:56)
[2021-09-07 18:08] LABS: Hematocrit (blood only) 32.6 % (37-47); Hemoglobin 11.1 g/dL (12.0-16.0)
[2021-09-08] MEDS: traMADol HCL 50 MG TABLET PO PRN ×3 (00:10→21:18)
[2021-09-08] MEDS: LEVOTHYROXINE SODIUM 100 MCG TABLET PO SCH (05:48)
[2021-09-08 06:11] LABS: Hematocrit (blood only) 31.7 % (37-47); Hemoglobin 10.8 g/dL (12.0-16.0); Mean Corpuscular Hemoglobin 29.3 pg (25-34); Mean Corpuscular Hgb Conc 34.1 g/dL (32-36); Mean Corpuscular Volume 86.1 fL (80-100); Mean Platelet Volume 9.7 fL (7.4-10.4); Platelet Count 227 K/uL (130-400); RDW Standard Deviation 51.1 fL (36.4-46.3); Red Blood Count 3.68 M/uL (4.2-5.4); White Blood Count 8.44 K/uL (4.8-10.8)
[2021-09-08 06:45] LABS: Basophils # (auto) 0.01 K/uL (0-0.2); Basophils % (auto) 0.1 %; Eosinophils # (auto) 0.05 K/uL (0-0.5); Eosinophils % (auto) 0.6 %; Immature Granulocytes # (auto) 0.05 K/uL (0.00-0.02); Immature Granulocytes % (auto) 0.6 %; Lymphocytes % (auto) 9.5 %; Monocytes # (auto) 0.77 K/uL (0.11-0.59); Monocytes % (auto) 9.1 %; Neutrophils # (auto) 6.76 K/uL (1.4-6.5); Neutrophils % (auto) 80.1 %; Toxic Granulation 1+
[2021-09-08 06:56] LABS: BUN Creatinine Ratio 26.9 (10-20); Calcium 7.4 mg/dl (8.5-10.1); Creatinine Clr Calc Pharmacy 15.4 ml/min; Est GFR (African American) 20.3 ml/min; Est GFR (Non-African American) 17.5 ml/min
--- NOTE | 2021-09-08 09:50 | Cardiology Progress Note ---
Date of Service September 08, 2021 Assessment & Plan (1) Non-ST elevation (NSTEMI) myocardial infarction: (2) CAD (coronary artery disease): (3) Dyslipidemia: (4) Ischemic cardiomyopathy: (5) Hypertension: (6) JOAN (acute kidney injury): Plan: ASSESSMENT/PLAN: 1. NSTEMI: No further angina. Had residual CAD within the circumflex and RCA. Has significant and ongoing left ventricular dysfunction. 2. CAD: Although she has residual coronary artery disease it is not causing symptoms and at the moment we do not want to consider intervention with her left ventricular dysfunction and her kidney injury. It should be acceptable to do EGD at this time without further intervention. 3. Dyslipidemia: Continue high-intensity statin therapy. 4. Hypertension: Blood pressure has been better the last few days and we may be able to titrate medications, I will wait until after her EGD however. 5. Ischemic cardiomyopathy: No significant improvement in LV systolic function on repeat limited echo but that was done several days after presentation with her [place]. She is wearing her LifeVest, hopefully will have some long-term improvement. I would probably wait several months before doing a repeat left ventricular measurement. 6. Acute kidney injury on baseline CKD: This is being managed by Nephrology. Her creatinine has improved marginally although is still quite abnormal. Admission and Anticipated Discharge Date Admission Date: September 02, 2021 Subjective She is feeling well today, she does not have shortness of breath, she remains somewhat tired but has no other complaints. No chest discomfort. She is wearing her LifeVest. Physical Exam Physical Exam: Constitutional: Alert, cooperative and in no distress. HEENT: Unremarkable Neck: No jugular venous distention, carotid pulses are normal and equal bilaterally without bruits. Pulmonary: Clear to auscultation bilaterally. Cardiac: Regular rhythm with no murmur, gallop or rub. Abdomen: Soft, nontender with normal bowel sounds. Extremities: No edema. Distal pulses intact. Neurologic: No focal findings. Gait is steady. Skin: No rash, she does have ecchymosis on both arms, no petechiae. Results & Data ([facility]) Vital Signs (Past 12 Hours) Vital Signs Temp Pulse Pulse Pulse Resp BP Pulse Ox 09/08/21 06:48 36.8 C 70 16 144/75 H 94 09/08/21 04:21 36.9 C 66 16 136/81 96 10/26/21 23:01 36.7 C 64 16 127/72 96 09/07/21 22:19 62 Laboratory Results CBC 09/07/21 09/08/21 Range/Units 17:43 05:42 WBC 8.44 (4.8-10.8) K/uL RBC 3.68 L (4.2-5.4) M/uL Hgb 11.1 L D 10.8 L (12.0-16.0) g/dL Hct 32.6 L 31.7 L (37-47) % Plt Count 227 (130-400) K/uL Neut # (Auto) 6.76 H (1.4-6.5) K/uL Lymph # (Auto) 0.80 L (1.2-3.4) K/uL [place] # (Auto) 0.77 H (0.11-0.59) K/uL Eos # (Auto) 0.05 (0-0.5) K/uL Baso # (Auto) 0.01 (0-0.2) K/uL Comprehensive Metabolic Panel 09/08/21 09/08/21 Range/Units 05:42 07:50 Sodium 129 L (136-145) mmol/L Potassium 3.8 (3.5-5.1) mmol/L Chloride 95 L (98-107) mmol/L Carbon Dioxide 23 (21-32) mmol/L BUN 70 H (7-18) mg/dl Creatinine 2.59 H D (0.6-1.2) mg/dl Glucose 86 (70-99) mg/dl Calcium 7.4 L (8.5-10.1) mg/dl Intake and Output 09/07/21 09/08/21 09/08/21 22:59 06:59 14:59 Intake Total 430 / 890 0 / 890 Output Total 900 / 1300 400 / 1300 Balance -470 / -410 -400 / -410 Intake: Oral 120 / 270 0 / 270 Intake (Blood Product) Amt 310 / 620 Packed Cells, Leukoreduced 310 / 310 Unit [id number] Output: Urine 900 / 1300 400 / 1300 Other: Weight 60.1 kg Weight Measurement Method Standing Scale Diagnostic Findings Telemetry: Sinus rhythm, no significant arrhythmia PG Care Time/CCT Total # of Minutes Spent Total Time Spent with Patient: Total time spent is greater than 50% in coordination of care (as documented) at patient's floor/unit and/or counseling patient: Coding Level of Care Code 07187 Subseq Hosp Care Lvl 2 Diagnoses Non-ST elevation (NSTEMI) myocardial infarction I21.4 CAD (coronary artery disease) I25.10 Dyslipidemia E78.5 Ischemic cardiomyopathy I25.5 Hypertension I10 JOAN (acute kidney injury) N17.9
--- NOTE | 2021-09-08 10:17 | Hospitalist Progress Note ---
Date of Service September 08, 2021 Assessment & Plan (1) Non-ST elevation (NSTEMI) myocardial infarction: Plan: Angelika is a 75-year-old female with a notable past medical history of hypertension, rheumatoid arthritis, degenerative disc disease who presented to [facility] on 09/02 for evaluation of chest pain, fatigue, and shortness of breath. NSTEMI In the setting of approximately 1 day of chest pain, diaphoresis, nausea, and shortness of breath; also in the setting of significant life stress with 's cancer diagnosis ECG with evidence of anterolateral T wave inversions, plus Initial troponin elevated to 21.4 Chest x-ray pulmonary edema Cardiology consulted in ED, PCI 2 overlapping mid LAD NICOL, D1 NICOL, concern for additional disease in RCA and Circ with possible staged pci in the future -- however given onset of renal failure would not recommend further PCI at this time. Recommend medical therapy for now. Continue anti-platelet, high- intensity statin therapy, beta-lala. TTE with significantly depressed EF 25% dual antiplatelet therapy, atorvastatin 80 carvedilol 3.25 twice daily Nitro, morphine, ECG PRN w/ chest pain (2) Acute kidney injury: Plan: Acute kidney injury from catheterization contrast and some pre renal issues likely causing ATN Appreciate nephrology consult. Dr Chaparro did see in consult suspect ATN in the setting of ACS and hypotension nonoliguric, renal ultrasound no obstruction complement levels pending Improving, Cr 2.59 today (baseline 1.85) (3) Melena: Plan: Continue IV pantoprazole 40mg IV BID. Hgb stable s/p 2 units packed RBCs [09/07]. Pending EGD today. (4) Hypertension: Plan: Continue carvedilol, holding spironolactone in the face of JOAN, was given Lasix post procedure due to concern for heart failure hypoxemia (5) CKD (chronic kidney disease): Plan: As above for JOAN (6) Rheumatoid arthritis: Plan: Pt has immune suppressing medications, Plaquenil, daily methylprednisone, tofacitinib. No active flare (7) Hypothyroidism: Plan: TSH WNL Remains on levothyroxine 100mcg PO daily (8) Asthma: Plan: No exacerbation Continue maintenance inhaler with symbicort or hospital formulary equivalent (9) Osteoporosis: (10) Disc degeneration, lumbar: Plan: Code: FULL CODE - admitting team discussed with patient. Dispo: Continue on PCU Diet: HH diet VTE Prophylaxis - deferred in setting of requiring DAPT and continued drop in Hgb with melena. Admission and Anticipated Discharge Date Admission Date: September 02, 2021 Subjective No change in symptoms after blood transfusions. Feeling well. No chest pain, shortness of breath or dizziness. Hemoglobin with only slight drop after transfusions from 11.1 -> 10.8. No further BM. NPO for EGD today. Review of Systems Review of Systems: All systems reviewed & are unremarkable except as noted in HPI & below Physical Exam Constitutional: well developed; no acute distress Eyes: + anicteric sclerae; normal pupil size ENMT: Mouth: no oral mucosal abnormality and oral mucous membranes not dry Neck: normal visual inspection and trachea midline Respiratory: normal respiratory effort Auscultation: lungs clear to auscultation bilaterally Cardiovascular: Rate/Rhythm: regular rate Heart Sounds: no murmur Extremities: + pedal edema (trace ankle b/l equal) Gastrointestinal (Abdomen): normal bowel sounds, soft, nontender, no hepatosplenomegaly Musculoskeletal: Extremities: no cyanosis and no clubbing Skin: + turgor decreased and + ecchymosis (bilateral upper extremities) Neurologic: moves all extremities and awake; not confused Psychiatric: Orientation: alert and oriented x 3 Results & Data Results & Data ([facility]) Vital Signs (Past 12 Hours) Vital Signs Temp Pulse Pulse Pulse Resp BP Pulse Ox 09/08/21 09:00 63 09/08/21 06:48 36.8 C 70 16 144/75 H 94 09/08/21 04:21 36.9 C 66 16 136/81 96 09/07/21 23:01 36.7 C 64 16 127/72 96 09/07/21 22:19 62 PG Care Time/CCT Total # of Minutes Spent Total Time Spent with Patient: Total time spent is greater than 50% in coordination of care (as documented) at patient's floor/unit and/or counseling patient: Coding Level of Care Code 47848 Subseq Hosp Care Lvl 3 Diagnoses Non-ST elevation (NSTEMI) myocardial infarction I21.4 Acute kidney injury N17.9 Melena K92.1 Hypertension I10 CKD (chronic kidney disease) N18.9 Rheumatoid arthritis M06.9 Hypothyroidism E03.9 Asthma J45.909 Osteoporosis M81.0 Disc degeneration, lumbar M51.36
--- NOTE | 2021-09-08 10:20 | Nephrology Progress Note ---
Date of Service September 08, 2021 Assessment & Plan (1) JOAN (acute kidney injury): Plan: Clinically consistent with suspected ATN in the setting of ACS and hypotension. Non-oliguric. Volume status acceptable. Creatinine relatively stable. No emergent indication for dialysis. Medications are appropriately dosed for kidney dysfunction. C3/C4 pending. Clinical presentation suggestive of ATN. Atheroembolic disease more likely to manifest around this time following angiography. Document strict I/O's and repeat metabolic profile tomorrow AM. For hyponatremia, free water restriction 1 L/d ordered. Oral NaHCO3 BID ordered for NAGMA + dysnatremia. (2) Stage 3b chronic kidney disease: Plan: Baseline creatinine 1.6-2.0 mg/dL attributed to microvascular disease and history of NSAID use. Prior imaging and records from Dr. Arellano were reviewed. (3) Ischemic cardiomyopathy: Plan: Volume status remains acceptable. Maintain a continued even to slightly negative fluid balance. (4) Hypertension: Plan: BP acceptable. MAP goal >65 in setting of JOAN. Spironolactone held. Atenolol switched to metoprolol. YANG/ARB deferred at this time due to JOAN and hypotension. Patient also did not tolerate well in the past due to cough. (5) Anemia: Plan: Hgb continues to trend down. Venofer 200 mg IV and Epogen 4000 units provided 09/06. 2 units PRBC transfusion support provided 09/07. Remains on IV pantoprazole 40 mg twice daily. EGD this AM. Admission and Anticipated Discharge Date Admission Date: September 02, 2021 Subjective Seen and evaluated prior to leaving for EGD. No events overnight. States that she "feels the same" this AM. Out of bed to bedside commode earlier with continued weakness. Review of Systems Review of Systems: All systems reviewed & are unremarkable except as noted in HPI & below Physical Exam Constitutional: well developed; no acute distress Eyes: no scleral abnormality and no corneal abnormality ENMT: Mouth: no oral mucosal abnormality and oral mucous membranes not dry Neck: normal visual inspection and trachea midline Respiratory: normal respiratory effort Auscultation: lungs clear to auscultation bilaterally Cardiovascular: Rate/Rhythm: regular rate Heart Sounds: normal S1 and normal S2 Vessels: + JVD Extremities: no edema Musculoskeletal: Extremities: no cyanosis and no clubbing Skin: + turgor decreased and + ecchymosis Neurologic: Motor/Sensory: no tremor and no asterixis Psychiatric: Orientation: alert and oriented x 3 Results & Data ([facility]) Vital Signs (Past 12 Hours) Vital Signs Temp Pulse Pulse Pulse Resp BP Pulse Ox 09/08/21 09:00 63 09/08/21 06:48 36.8 C 70 16 144/75 H 94 09/08/21 04:21 36.9 C 66 16 136/81 96 09/07/21 23:01 36.7 C 64 16 127/72 96 09/07/21 22:19 62 Laboratory Results Laboratory Results - last 24 hr 09/07/21 09/07/21 09/08/21 07:34 17:43 05:42 WBC 8.44 RBC 3.68 L Hgb 11.1 L D 10.8 L Hct 32.6 L 31.7 L MCV 86.1 MCH 29.3 MCHC 34.1 RDW Std Deviation 51.1 H RDW Coeff of Sue 16.0 H Plt Count 227 MPV 9.7 Immature Gran % (Auto) 0.6 Neut % (Auto) 80.1 Lymph % (Auto) 9.5 [place] % (Auto) 9.1 Eos % (Auto) 0.6 Baso % (Auto) 0.1 Neut # (Auto) 6.76 H Lymph # (Auto) 0.80 L [place] # (Auto) 0.77 H Eos # (Auto) 0.05 Baso # (Auto) 0.01 Immature Gran # (Auto) 0.05 H Toxic Granulation 1+ Sodium Potassium Chloride Carbon Dioxide Anion Gap BUN Creatinine Est Cr Clr Drug Dosing Est GFR ( Amer) Est GFR (Non-Af Amer) BUN/Creatinine Ratio Glucose Calcium Blood Type A Positive Antibody Screen NEGATIVE Crossmatch See Detail 09/08/21 09/08/21 05:42 07:50 WBC RBC Hgb Hct MCV MCH MCHC RDW Std Deviation RDW Coeff of Sue Plt Count MPV Immature Gran % (Auto) Neut % (Auto) Lymph % (Auto) [place] % (Auto) Eos % (Auto) Baso % (Auto) Neut # (Auto) Lymph # (Auto) [place] # (Auto) Eos # (Auto) Baso # (Auto) Immature Gran # (Auto) Toxic Granulation Sodium 129 L Potassium 3.8 Chloride 95 L Carbon Dioxide 23 Anion Gap 11.0 BUN 70 H Creatinine 2.59 H D Est Cr Clr Drug Dosing 15.4 Est GFR ( Amer) 20.3 Est GFR (Non-Af Amer) 17.5 BUN/Creatinine Ratio 26.9 H Glucose 86 Calcium 7.4 L Blood Type Antibody Screen Crossmatch PG Care Time/CCT Total # of Minutes Spent Total Time Spent with Patient: Total time spent is greater than 50% in coordination of care (as documented) at patient's floor/unit and/or counseling patient: Coding Level of Care Code 27249 Subseq Hosp Care Lvl 3 Diagnoses JOAN (acute kidney injury) N17.9 Stage 3b chronic kidney disease N18.32 Ischemic cardiomyopathy I25.5 Hypertension I10 Anemia D64.9
--- NOTE | 2021-09-08 10:35 | Anesthesiology Consultation ---
Date of Service September 08, 2021 Assessment & Plan Chart Review Chart Review: Acceptable Risk for Surgery Consults Requested none Proposed Anesthesia Risk / Benefits Reviewed With: PT / POA / Parent / Guardian, Accepts Plan and Informed Consent Obtained History Surgery Operation Date: 09/02/21 10:00 Proposed Procedures p Cardiac Cath Procedure - Nila Belcher MD Operation Date: 09/08/21 16:00 Proposed Procedures p Esophagogastroduodenoscopy Dr Doll - Griffin Doll, Height/Weight Height: 5 ft Weight: 60.1 kg Allergies Allergy/AdvReac Type Severity Reaction Status Date / Time amoxicillin Allergy Intermediate SEVERE Verified 09/08/21 10:17 RHEUMATOID ARTHRITIC SYMPTOMS clavulanic acid Allergy Intermediate SEVERE Verified 09/08/21 10:17 RHEUMATOID ARTHRITIC SYMPTOMS iodine Allergy Intermediate Stage 1V Verified 09/08/21 10:17 kidney disease auranofin [From Ridaura] Allergy Mild Rash Verified 09/08/21 10:17 infliximab [From Remicade] Allergy Mild Rash Verified 09/08/21 10:17 Sulfa (Sulfonamide AdvReac Intermediate "give me Verified 09/08/21 10:17 Antibiotics) anxiety" Medications Home Medications Medication Instructions Recorded Confirmed Last Taken ascorbate calcium (vitamin C) 500 500 mg PO QAM 02/15/19 09/02/21 09/01/21 mg tablet cyanocobalamin (vitamin B-12) 1,000 mcg PO QAM 02/15/19 09/02/21 09/01/21 1,000 mcg capsule levalbuterol HCl 0.63 mg/3 mL 0.63 mg INH QID PRN ml 02/15/19 09/02/21 Unknown solution for nebulization (Xopenex) ursodiol 300 mg capsule 300 mg PO BID 02/15/19 09/02/21 09/01/21 biotin 5,000 mcg sublingual tablet 5,000 mcg SL QAM 05/29/19 09/02/21 09/01/21 docusate sodium 100 mg capsule 100 mg PO BID 09/17/19 09/02/21 09/01/21 (Colace) psyllium husk 0.52 gram capsule 0.52 g PO BIDM 09/17/19 09/02/21 09/01/21 (Metamucil) methylprednisolone 4 mg tablet 4 mg PO QAM tab 05/21/20 09/02/21 09/02/21 hydroxychloroquine 200 mg tablet 200 mg PO QAM tab 11/16/20 09/02/21 09/01/21 (Plaquenil) sennosides 8.6 mg tablet (Senokot) 8.6 mg PO HS PRN tab 11/16/20 09/02/21 Unknown sodium chloride 1 gram tablet 1,000 mg PO QDD tab 11/18/20 09/02/21 09/01/21 gentamicin sulfate (PF) 60 mg/6 mL 60 mg INHALATION UD PRN #45 ml 12/02/20 09/02/21 08/31/21 intravenous solution spironolactone 25 mg tablet 25 mg PO QAM #90 tab 02/01/21 09/02/21 09/01/21 gabapentin 100 mg capsule 100 mg PO BID #60 cap 02/26/21 09/02/21 09/02/21 atenolol 25 mg tablet (Tenormin) 12.5 mg PO QAM #45 tab 04/05/21 09/02/21 09/02/21 fluticasone 500 mcg-salmeterol 50 1 inh INH BID #3 inhaler 04/05/21 09/02/21 1 mcg/dose blistr powdr for inhalation (Advair Diskus) levothyroxine 100 mcg tablet 100 mcg PO QAM #90 tab 04/16/21 09/02/21 09/02/21 furosemide 20 mg tablet 10 mg PO QAM #45 tab 05/07/21 09/02/21 09/02/21 tofacitinib 5 mg tablet (Xeljanz) 5 mg PO QAM 06/23/21 09/02/21 09/02/21 albuterol sulfate 90 mcg/actuation 2 puff INH Q4H PRN #8.5 g 07/01/21 09/02/21 Unknown aerosol inhaler (Ventolin HFA) tramadol 50 mg tablet 50 mg PO Q8H PRN #90 tab 08/10/21 09/02/21 09/02/21 01:00 50 mg diclofenac sodium 1 % topical gel 2 g TOPICAL QID PRN 09/02/21 09/02/21 08/31/21 (Voltaren Arthritis Pain) Active Medications Generic Name Dose Route Start Last Admin Trade Name Freq PRN Reason Stop Dose Admin Ascorbic Acid 500 mg 09/03/21 09:00 09/07/21 09:11 Ascorbic Acid 500 Mg Tab PO 10/03/21 08:59 500 mg QAM TYREE Administration Aspirin 81 mg 09/03/21 09:00 09/07/21 09:11 Aspirin 81 Mg Ectab PO 10/03/21 08:59 81 mg QAM TYREE Administration Atorvastatin Calcium 80 mg 09/03/21 09:00 09/07/21 09:05 Atorvastatin 40 Mg Tab PO 10/03/21 08:59 80 mg QAM TYREE Administration Carvedilol 3.125 mg 09/05/21 21:00 09/07/21 20:52 Carvedilol 3.125 Mg Tab PO 10/05/21 20:59 3.125 mg BID TYREE Administration Clopidogrel Bisulfate 75 mg 09/03/21 09:00 09/07/21 09:10 Clopidogrel Bisulfate 75 Mg Tab PO 10/03/21 08:59 75 mg QAM TYREE Administration Cyanocobalamin 1,000 mcg 09/03/21 09:00 09/07/21 09:09 Cyanocobalamin 500 Mcg Tablet (Vitamin B-12) PO 10/03/21 08:59 1,000 mcg QAM TYREE Administration Fluticasone/Vilanterol 1 puffs 09/03/21 09:00 09/07/21 09:10 Fluticasone/Vilanterol 200/25mcg 14 Puffs/Inhaler INH 10/03/21 08:59 1 puffs DAILY TYREE Administration Gabapentin 100 mg 09/02/21 21:00 09/07/21 20:52 Gabapentin 100 Mg Cap PO 10/02/21 20:59 100 mg BID TYREE Administration Hydroxychloroquine Sulfate 200 mg 09/03/21 09:00 09/07/21 09:09 Hydroxychloroquine Sulfate 200 Mg Tab PO 10/03/21 08:59 200 mg QAM TYREE Administration Ondansetron HCl 6 mg/ Dextrose 53 mls @ 200 mls/hr 09/03/21 12:45 09/03/21 13:27 IV 10/03/21 12:44 Infused Q6H PRN Infusion Nausea And Vomiting Pantoprazole Sodium 40 mg/ 10 mls @ 5 mls/min 09/03/21 16:00 09/07/21 20:51 Syringe IV 10/03/21 15:59 5 mls/min BID TYREE Administration Levothyroxine Sodium 100 mcg 09/03/21 06:30 09/08/21 05:48 Levothyroxine Sodium 100 Mcg Tablet PO 10/03/21 06:29 100 mcg DAILYBB TYREE Administration Methylprednisolone 4 mg 09/04/21 09:00 09/07/21 09:09 Methylprednisolone 4 Mg Tab PO 10/04/21 08:59 4 mg DAILY TYREE Administration Miscellaneous 1 ea 09/05/21 21:00 09/07/21 20:52 Gentamicin/Saline Nasal Solution [Patient Own Med] NICKY 10/05/21 17:29 1 ea TID TYREE Administration Xeljanz 5mg ~ Non- 1 ea 09/03/21 12:30 09/07/21 09:08 Formulary Patient's PO 10/03/21 12:29 1 tab Own Med DAILY TYREE Administration Sodium Bicarbonate 1,300 mg 09/06/21 17:30 09/07/21 20:51 Sodium Bicarbonate 650 Mg Tab PO 10/06/21 17:29 1,300 mg TID TYREE Administration Tramadol HCl 50 mg 09/02/21 13:31 09/08/21 00:10 Tramadol Hcl 50 Mg Tablet PO 10/02/21 13:30 50 mg Q8H PRN Administration Pain Ursodiol 300 mg 09/02/21 21:00 09/07/21 20:55 Ursodiol 300 Mg Cap PO 10/02/21 20:59 Not Given BID TYREE NPO Date Last Intake of Fluids: 09/08/21 Time Last Intake of Fluids: 06:30 Date Last Intake of Solids: 09/07/21 Time Last Intake of Solids: 18:00 Past Medical History Medical History Choledocholithiasis Chronic kidney disease (CKD), stage III (moderate) Hypertension Intractable nausea and vomiting Skin tear of lower leg without complication Stage 3b chronic kidney disease Steroid-induced diabetes mellitus Past Family History Family History Aunt Breast cancer Father Myocardial infarction Family history of diabetes mellitus Brother Family history of diabetes mellitus Brother Family history of diabetes mellitus Other No family history of adverse response to anesthesia Denies family history of Ovarian cancer Prostate cancer Colorectal cancer Past Surgical History Surgical History History of bilateral cataract extraction History of section History of cholecystectomy History of colonoscopy with polypectomy History of dilatation and curettage History of ERCP History of esophagogastroduodenoscopy (EGD) History of hysterectomy History of wisdom tooth extraction S/P laparoscopic appendectomy 06/13/19 Dr. Russ Brambila S/P [facility] Social History Smoking Status: Never smoker Hx Alcohol Use: No Hx Substance Use: No substance use type: does not use Physical Exam Vital Signs Last Vital Signs Temp 36.6 C 09/08/21 10:19 Pulse 72 09/08/21 10:19 Resp 16 09/08/21 10:19 BP 136/63 09/08/21 10:19 Pulse Ox 95 09/08/21 10:19 Testing Laboratory Results 09/08/21 05:42 09/08/21 07:50 PT 10.3 Seconds (9.0-12.0) 09/05/21 06:43 INR 1.0 (0.9-1.1) 09/05/21 06:43 APTT 23.7 Seconds (21.0-31.0) 09/02/21 08:25 Urine Color Yellow 09/05/21 14:15 Urine Appearance Clear (Clear) 09/05/21 14:15 Urine pH 5.0 (4.5-7.5) 09/05/21 14:15 Ur Specific [place] 1.017 (1.000-1.030) 09/05/21 14:15 Urine Protein Trace (Negative) H 09/05/21 14:15 Urine Glucose (UA) Negative (Negative) 09/05/21 14:15 Urine Ketones Negative (Negative) 09/05/21 14:15 Urine Nitrite Negative (Negative) 09/05/21 14:15 Ur Leukocyte Esterase 1+ (Negative) H 09/05/21 14:15 Urine WBC (Auto) 5-10 /hpf (0-5) H 09/05/21 14:15 Urine RBC (Auto) 0-4 /hpf (0-4) 09/05/21 14:15 U Hyaline Cast (Auto) 1-5 /lpf (0-5) 09/05/21 14:15 U Epithel Cells (Auto) >30 /lpf (0-5) H 09/05/21 14:15 Urine Bacteria (Auto) Negative (Negative) 09/05/21 14:15 Blood Type A Positive 09/07/21 07:34 Antibody Screen NEGATIVE 09/07/21 07:34
--- NOTE | 2021-09-08 10:35 | History & Physical Bridge Note ---
Date of Service September 08, 2021 History & Physical Bridge Note I have examined the patient, reviewed the History & Physical and in the interval since the performance of the History & Physical I have noted the following changes of clinical significance: no changes noted
--- NOTE | 2021-09-08 11:13 | GI REPORT ---
Patient Name: Angelika Herrera Procedure Date: 09/08/2021 10:37 AM Date of : 1945 Admit Type: Inpatient Age: 75 Gender: Female Attending MD: Griffin Doll DO Procedure: Upper GI endoscopy Providers: Griffin Doll DO Referring MD: Raj Manning Md Indications: Melena Medicines: Monitored Anesthesia Care Complications: No immediate complications. Estimated blood loss: Minimal. Estimated Blood Loss: Estimated blood loss was minimal. Procedure: Pre-Anesthesia Assessment: - Prior to the procedure, a History and Physical was performed, and patient medications, allergies and sensitivities were reviewed. The patient's tolerance of previous anesthesia was reviewed. - The risks and benefits of the procedure and the sedation options and risks were discussed with the patient. All questions were answered and informed consent was obtained. - Patient identification and proposed procedure were verified prior to the procedure by the physician, the nurse and the operations supervisor chemical cleaning. The procedure was verified in the procedure room. - Pre-procedure physical examination revealed no contraindications to sedation. - ASA Grade Assessment: IV - A patient with severe systemic disease that is a constant threat to life. - After reviewing the risks and benefits, the patient was deemed in satisfactory condition to undergo the procedure. - The anesthesia plan was to use monitored anesthesia care (MAC). - Immediately prior to administration of medications, the patient was re-assessed for adequacy to receive sedatives. - The heart rate, respiratory rate, oxygen saturations, blood pressure, adequacy of pulmonary ventilation, and response to care were monitored throughout the procedure. - The physical status of the patient was re-assessed after the procedure. After obtaining informed consent, the endoscope was passed under direct vision. Throughout the procedure, the patient's blood pressure, pulse, and oxygen saturations were monitored continuously. The Endoscope was introduced through the mouth, and advanced to the third part of duodenum. The upper GI endoscopy was accomplished without difficulty. The patient tolerated the procedure well. Findings: The examined esophagus was normal. A small hiatal hernia was found. The proximal extent of the gastric folds (end of tubular esophagus) was 35 cm from the incisors. The hiatal narrowing was 38 cm from the incisors. Diffuse mild inflammation characterized by congestion (edema), erythema and granularity was found in the entire examined stomach. The examined duodenum was normal. Impression: - Normal esophagus. - Small hiatal hernia. - Gastritis. - Normal examined duodenum. - No specimens collected. Recommendation: - [facility] for [facility] care. - Advance diet as tolerated today. - Use Protonix (pantoprazole) 20 mg PO daily. -The melena was likely related to mucosal oozing from anticoagulation around the time of her recent percutaneous cardiac intervention. If she has recurrent symptoms or problems then the role of dual antiplatelet therapy will need to be reevaluated by her cardiology provider. Griffin Doll D.O. Griffin Doll, 09/08/2021 11:13:39 AM This report has been signed electronically. Note Initiated On: 09/08/2021 10:37 AM Number of Addenda: 0 I attest to the content of the Intraoperative Record and orders documented therein, exceptions below {[id number]}
--- NOTE | 2021-09-08 11:15 | Communication Note ---
Date of Service: September 08, 2021 The patient underwent upper endoscopy today for evaluation of melena. She was found to have diffuse gastritis, no ulcerations or arteriovenous malformations were seen. Recommendations Continue Protonix 20 mg/day Diet as tolerated from our perspective The melena was likely related to mucosal oozing from anticoagulation around the time of her recent percutaneous cardiac intervention. If she has recurrent symptoms or problems then the role of dual antiplatelet therapy will need to be reevaluated by her cardiology provider GI to sign off
--- NOTE | 2021-09-08 11:16 | Anesthesiology Progress Note ---
Date of Service September 08, 2021 Anesthesia Post Procedure Vital Signs Vital Signs: Temp Pulse Pulse Pulse Resp BP BP 09/08/21 11:12 70 16 142/76 H 09/08/21 10:57 36.5 C 74 16 136/79 09/08/21 10:19 36.6 C 72 16 136/63 09/08/21 09:00 63 09/08/21 06:48 36.8 C 70 16 144/75 H 09/08/21 04:21 36.9 C 66 16 136/81 09/07/21 23:01 36.7 C 64 16 127/72 09/07/21 22:19 62 09/07/21 20:50 64 120/71 09/07/21 19:29 37.0 C 66 16 124/70 09/07/21 16:02 36.6 C 69 14 09/07/21 15:45 36.6 C 71 14 137/75 09/07/21 15:19 70 09/07/21 14:45 36.6 C 73 14 125/77 09/07/21 13:45 36.6 C 72 14 114/73 09/07/21 13:15 36.5 C 75 12 123/65 09/07/21 13:02 36.6 C 82 19 125/69 09/07/21 12:55 36.6 C 80 19 125/77 09/07/21 12:39 36.7 C 79 18 130/80 09/07/21 12:05 36.6 C 75 16 09/07/21 11:20 67 BP Pulse Ox 09/08/21 11:12 95 09/08/21 10:57 95 09/08/21 10:19 95 09/08/21 09:00 09/08/21 06:48 94 09/08/21 04:21 96 09/07/21 23:01 96 09/07/21 22:19 09/07/21 20:50 09/07/21 19:29 96 09/07/21 16:02 137/75 97 09/07/21 15:45 93 09/07/21 15:19 09/07/21 14:45 94 09/07/21 13:45 94 09/07/21 13:15 94 09/07/21 13:02 94 09/07/21 12:55 95 09/07/21 12:39 95 09/07/21 12:05 121/73 96 09/07/21 11:20 Pain Intensity Bilateral Chest: Pain Intensity: 2 Transfer of Care Handoff Completed per policy Notes Mental Status: alert / awake / arousable and participated in evaluation Patient Amnestic to Procedure: Yes Nausea / Vomiting: adequately controlled Pain: adequately controlled Airway Patency, RR, SpO2: stable & adequate BP & HR: stable & adequate Hydration State: stable & adequate Anesthetic Complications: no major complications apparent
[2021-09-08] MEDS ORDERED: PROPOFOL IV EMULSION 10 MG/ML 20 ML VIAL IV ONE (11:25)
[2021-09-08] MEDS ORDERED: LIDOCAINE 2% 2 ML VIAL/AMP(20MG/ML) INFIL ONE (11:25)
[2021-09-08] MEDS: PANTOprazole 40 MG in SYRINGE 0 ML IV SCH (12:11)
[2021-09-08] MEDS: PSYLLIUM 58.6% POWDER PACKET PO PRN (12:13)
[2021-09-08] MEDS: FLUTICASONE/VILANTEROL 200/25MCG 14 PUFFS/INHALER INH SCH (12:13)
[2021-09-08] MEDS: XELJANZ 5 MG PO SCH (12:13)
[2021-09-08] MEDS: SODIUM BICARBONATE 650 MG TAB PO SCH ×3 (12:14→21:18)
[2021-09-08] MEDS: ATORVASTATIN 40 MG TAB PO SCH (12:14)
[2021-09-08] MEDS: ursodioL 300 MG CAP PO SCH ×2 (12:14→21:20)
[2021-09-08] MEDS: GENTAMICIN NAE SCH ×3 (12:16→21:18)
[2021-09-08] MEDS: SALINE NAE SCH ×3 (12:16→21:18)
[2021-09-08] MEDS: CLOPIDOGREL BISULFATE 75 MG TAB PO SCH (12:38)
[2021-09-08] MEDS: carvediloL 3.125 MG TAB PO SCH (12:38)
[2021-09-08] MEDS: ASPIRIN 81 MG ECTAB PO SCH (12:38)
[2021-09-08] MEDS: GABAPENTIN 100 MG CAP PO SCH ×2 (12:39→21:17)
[2021-09-08] MEDS: HYDROXYCHLOROQUINE SULFATE 200 MG TAB PO SCH (12:39)
[2021-09-08] MEDS: CYANOCOBALAMIN 500 MCG TABLET (VITAMIN B-12) PO SCH (12:39)
[2021-09-08] MEDS: ASCORBIC ACID 500 MG TAB PO SCH (12:39)
[2021-09-08] MEDS ORDERED: ONDANSETRON INJ 2 MG/ML 2 ML VIAL ONE (17:00)
[2021-09-08] MEDS: carvediloL 6.25 MG TAB PO SCH (21:17)
[2021-09-09] MEDS: LEVOTHYROXINE SODIUM 100 MCG TABLET PO SCH (06:03)
[2021-09-09] MEDS: GABAPENTIN 100 MG CAP PO SCH ×2 (07:49→20:45)
[2021-09-09] MEDS: carvediloL 6.25 MG TAB PO SCH ×2 (07:49→20:46)
[2021-09-09] MEDS: CYANOCOBALAMIN 500 MCG TABLET (VITAMIN B-12) PO SCH (07:49)
[2021-09-09] MEDS: ASCORBIC ACID 500 MG TAB PO SCH (07:49)
[2021-09-09] MEDS: ursodioL 300 MG CAP PO SCH ×3 (07:49→20:44)
[2021-09-09] MEDS: methylPREDNISolone 4 MG TAB PO SCH (07:49)
[2021-09-09] MEDS: ASPIRIN 81 MG ECTAB PO SCH (07:49)
[2021-09-09] MEDS: ATORVASTATIN 40 MG TAB PO SCH (07:49)
[2021-09-09] MEDS: CLOPIDOGREL BISULFATE 75 MG TAB PO SCH (07:49)
[2021-09-09] MEDS: HYDROXYCHLOROQUINE SULFATE 200 MG TAB PO SCH (07:49)
[2021-09-09] MEDS: FLUTICASONE/VILANTEROL 200/25MCG 14 PUFFS/INHALER INH SCH (07:50)
[2021-09-09] MEDS: SODIUM BICARBONATE 650 MG TAB PO SCH ×3 (07:50→20:45)
[2021-09-09] MEDS: XELJANZ 5 MG PO SCH (07:50)
[2021-09-09] MEDS: GENTAMICIN NAE SCH ×3 (07:51→20:47)
[2021-09-09] MEDS: SALINE NAE SCH ×3 (07:51→20:47)
[2021-09-09] MEDS: traMADol HCL 50 MG TABLET PO PRN ×2 (07:56→20:44)
[2021-09-09 08:31] LABS: Hematocrit (blood only) 36.7 % (37-47); Hemoglobin 12.2 g/dL (12.0-16.0); Mean Corpuscular Hemoglobin 29.2 pg (25-34); Mean Corpuscular Hgb Conc 33.2 g/dL (32-36); Mean Corpuscular Volume 87.8 fL (80-100); Mean Platelet Volume 9.5 fL (7.4-10.4); Platelet Count 256 K/uL (130-400); RDW Coefficient of Variation 16.2 % (11.5-14.5); RDW Standard Deviation 51.7 fL (36.4-46.3); Red Blood Count 4.18 M/uL (4.2-5.4); White Blood Count 15.05 K/uL (4.8-10.8)
[2021-09-09] MEDS ORDERED: methylPREDNISolone 4 MG TAB PO SCH (09:00)
[2021-09-09 09:31] LABS: Basophils # (auto) 0.04 K/uL (0-0.2); Basophils % (auto) 0.3 %; Eosinophils # (auto) 0.06 K/uL (0-0.5); Eosinophils % (auto) 0.4 %; Immature Granulocytes % (auto) 1.3 %; Lymphocytes # (auto) 0.87 K/uL (1.2-3.4); Lymphocytes % (auto) 5.8 %; Monocytes # (auto) 1.57 K/uL (0.11-0.59); Monocytes % (auto) 10.4 %; Neutrophils # (auto) 12.31 K/uL (1.4-6.5); Neutrophils % (auto) 81.8 %
--- NOTE | 2021-09-09 10:03 | Nephrology Progress Note ---
Date of Service September 09, 2021 Assessment & Plan (1) Acute kidney injury: Plan: Clinically consistent with suspected ATN in the setting of ACS and hypotension. Non-oliguric. Volume status acceptable. AM labs pending this morning. Medications are appropriately dosed for kidney dysfunction. Document strict I/O's and repeat metabolic profile tomorrow AM. For hyponatremia, free water restriction 1 L/d ordered. Oral NaHCO3 BID ordered for NAGMA + dysnatremia. (2) Anemia: Plan: Hgb continues to trend down. Venofer 200 mg IV and Epogen 4000 units provided 09/06. 2 units PRBC transfusion support provided 09/07. Remains on pantoprazole. EGD demonstrating mild gastritis. (3) Ischemic cardiomyopathy: Plan: Volume status remains acceptable. Maintain a continued even to slightly negative fluid balance. (4) Hypertension: Plan: Spironolactone held. Atenolol switched to metoprolol. YANG/ARB deferred at this time due to JOAN and hypotension. Patient also did not tolerate well in the past due to cough. (5) CKD (chronic kidney disease): Plan: Baseline creatinine 1.6-2.0 mg/dL attributed to microvascular disease and history of NSAID use. Follows with Dr. Arellano as outpatient. Admission and Anticipated Discharge Date Admission Date: September 02, 2021 Subjective No acute events overnight. EGD completed without complications. Mild gastritis noted. Angelika feels reasonably well this AM. Review of Systems Review of Systems: All systems reviewed & are unremarkable except as noted in HPI & below Physical Exam Constitutional: well developed; no acute distress Eyes: no scleral abnormality and no corneal abnormality ENMT: Mouth: no oral mucosal abnormality and oral mucous membranes not dry Neck: normal visual inspection and trachea midline Respiratory: normal respiratory effort Auscultation: lungs clear to auscultation bilaterally Cardiovascular: Rate/Rhythm: regular rate Heart Sounds: normal S1 and normal S2 Vessels: + JVD Extremities: no edema Musculoskeletal: Extremities: no cyanosis and no clubbing Skin: + turgor decreased and + ecchymosis Neurologic: Motor/Sensory: no tremor and no asterixis Psychiatric: Orientation: alert and oriented x 3 Results & Data ([facility]) Vital Signs (Past 12 Hours) Vital Signs Temp Pulse Pulse Resp BP Pulse Ox 09/09/21 07:29 36.5 C 72 18 135/81 96 09/09/21 05:03 65 09/09/21 04:00 36.7 C 79 18 127/74 93 09/09/21 00:23 37.0 C 74 18 118/75 93 Laboratory Results Laboratory Results - last 24 hr 09/09/21 09/09/21 08:20 08:20 WBC 15.05 H RBC 4.18 L Hgb 12.2 Hct 36.7 L MCV 87.8 MCH 29.2 MCHC 33.2 RDW Std Deviation 51.7 H RDW Coeff of Sue 16.2 H Plt Count 256 MPV 9.5 Immature Gran % (Auto) 1.3 Neut % (Auto) 81.8 Lymph % (Auto) 5.8 [place] % (Auto) 10.4 Eos % (Auto) 0.4 Baso % (Auto) 0.3 Neut # (Auto) 12.31 H Lymph # (Auto) 0.87 L [place] # (Auto) 1.57 H Eos # (Auto) 0.06 Baso # (Auto) 0.04 Immature Gran # (Auto) 0.20 H Sodium Pending Potassium Pending Chloride Pending Carbon Dioxide Pending Anion Gap Pending BUN Pending Creatinine Pending Est Cr Clr Drug Dosing Pending Est GFR ( Amer) Pending Est GFR (Non-Af Amer) Pending BUN/Creatinine Ratio Pending Glucose Pending Calcium Pending PG Care Time/CCT Total # of Minutes Spent Total Time Spent with Patient: Total time spent is greater than 50% in coordination of care (as documented) at patient's floor/unit and/or counseling patient: Coding Level of Care Code 07383 Subseq Hosp Care Lvl 3 Diagnoses Acute kidney injury N17.9 Anemia D64.9 Ischemic cardiomyopathy I25.5 Hypertension I10 CKD (chronic kidney disease) N18.9
[2021-09-09 10:04] LABS: BUN Creatinine Ratio 28.7 (10-20); Calcium 8.6 mg/dl (8.5-10.1); Creatinine Clr Calc Pharmacy 17.7 ml/min; Est GFR (Non-African American) 20.7 ml/min; Potassium 4.1 mmol/L (3.5-5.1)
--- NOTE | 2021-09-09 11:09 | Hospitalist Progress Note ---
Date of Service September 09, 2021 Assessment & Plan (1) Non-ST elevation (NSTEMI) myocardial infarction: Plan: Angelika is a 75-year-old female with a notable past medical history of hypertension, rheumatoid arthritis, degenerative disc disease who presented to [facility] on 09/02 for evaluation of chest pain, fatigue, and shortness of breath. NSTEMI In the setting of approximately 1 day of chest pain, diaphoresis, nausea, and shortness of breath; also in the setting of significant life stress with 's cancer diagnosis ECG with evidence of anterolateral T wave inversions, plus Initial troponin elevated to 21.4 Chest x-ray pulmonary edema Cardiology consulted in ED, PCI 2 overlapping mid LAD NICOL, D1 NICOL, concern for additional disease in RCA and Circ with possible staged pci in the future -- however given onset of renal failure would not recommend further PCI at this time. Recommend medical therapy for now. Continue anti-platelet, high- intensity statin therapy, beta-lala. TTE with significantly depressed EF 25% dual antiplatelet therapy, atorvastatin 80 carvedilol 3.25 twice daily Nitro, morphine, ECG PRN w/ chest pain (2) Acute kidney injury: Plan: Acute kidney injury from catheterization contrast and some pre renal issues likely causing ATN Appreciate nephrology consult. Dr Chaparro did see in consult suspect ATN in the setting of ACS and hypotension nonoliguric, renal ultrasound no obstruction complement levels pending Improving, Cr 2.26 today (baseline 1.85) (3) Melena: Plan: Hgb stable s/p 2 units packed RBCs [09/07]. EGD - gastritis, no active bleeding Continue pantoprazole 40mg PO daily (4) Hypertension: Plan: Continue carvedilol, holding spironolactone in the face of JOAN, was given Lasix post procedure due to concern for heart failure hypoxemia (5) CKD (chronic kidney disease): Plan: As above for JOAN (6) Rheumatoid arthritis: Plan: Pt has immune suppressing medications, Plaquenil, daily methylprednisone, tofacitinib. No active flare (7) Hypothyroidism: Plan: TSH WNL Remains on levothyroxine 100mcg PO daily (8) Asthma: Plan: No exacerbation Continue maintenance inhaler with symbicort or hospital formulary equivalent (9) Osteoporosis: (10) Disc degeneration, lumbar: Plan: Code: FULL CODE - admitting team discussed with patient. Dispo: Medically stable for discharge at this time Diet: HH diet VTE Prophylaxis - deferred in setting of requiring DAPT and continued drop in Hgb with melena. Admission and Anticipated Discharge Date Admission Date: September 02, 2021 Subjective No current chest pain, shortness of breath, no further BM, abdominal pain. Review of Systems Review of Systems: All systems reviewed & are unremarkable except as noted in HPI & below Physical Exam Constitutional: well developed; no acute distress Eyes: + anicteric sclerae; normal pupil size ENMT: Mouth: no oral mucosal abnormality and oral mucous membranes not dry Respiratory: normal respiratory effort Cardiovascular: Rate/Rhythm: regular rate and regular rhythm Heart Sounds: no murmur Extremities: + pedal edema (trace ankle b/l equal) Gastrointestinal (Abdomen): normal bowel sounds, soft, nontender, no hepatosplenomegaly Musculoskeletal: Extremities: no cyanosis and no clubbing Skin: + ecchymosis (bilateral upper extremities) Neurologic: moves all extremities and awake; not confused Psychiatric: Orientation: alert and oriented x 3 Results & Data Results & Data ([facility]) Vital Signs (Past 12 Hours) Vital Signs Temp Pulse Pulse Resp BP Pulse Ox 09/09/21 11:08 36.8 C 61 18 113/70 94 09/09/21 07:29 36.5 C 72 18 135/81 96 09/09/21 07:00 69 09/09/21 05:03 65 09/09/21 04:00 36.7 C 79 18 127/74 93 09/09/21 00:23 37.0 C 74 18 118/75 93 PG Care Time/CCT Total # of Minutes Spent Total Time Spent with Patient: Total time spent is greater than 50% in coordination of care (as documented) at patient's floor/unit and/or counseling patient: Coding Level of Care Code 99914 Subseq Hosp Care Lvl 1 Diagnoses Non-ST elevation (NSTEMI) myocardial infarction I21.4 Acute kidney injury N17.9 Melena K92.1 Hypertension I10 CKD (chronic kidney disease) N18.9 Rheumatoid arthritis M06.9 Hypothyroidism E03.9 Asthma J45.909 Osteoporosis M81.0 Disc degeneration, lumbar M51.36
--- NOTE | 2021-09-09 15:16 | Cardiology Progress Note ---
Date of Service September 09, 2021 Assessment & Plan (1) Non-ST elevation (NSTEMI) myocardial infarction: (2) CAD (coronary artery disease): (3) Dyslipidemia: (4) Ischemic cardiomyopathy: (5) Hypertension: (6) JOAN (acute kidney injury): Plan: ASSESSMENT/PLAN: 1. NSTEMI: No further angina following intervention Had residual CAD within the circumflex and RCA. 2. CAD: Although she has residual coronary artery disease it is not causing symptoms and at the moment we do not want to consider intervention with her left ventricular dysfunction and her kidney injury. We will need to consider this in the future depending on her clinical course. 3. Dyslipidemia: Continue high-intensity statin therapy. 4. Hypertension: Blood pressure has been better the last few days and I was able to increase her carvedilol yesterday with a good response and no hypotensi on. 5. Ischemic cardiomyopathy: No significant improvement in LV systolic function on repeat limited echo but that was done several days after presentation with her WA. I am hopeful that we can titrate her medications and improve her left ventricular function. She is wearing her LifeVest. I would probably wait several months before doing a repeat left ventricular ejection fraction measurement. 6. Acute kidney injury on baseline CKD: This is being managed by Nephrology. Her creatinine has improved although is still quite abnormal. Admission and Anticipated Discharge Date Admission Date: September 02, 2021 Physical Exam Physical Exam: Constitutional: Alert, cooperative and in no distress. HEENT: Unremarkable Neck: No jugular venous distention, carotid pulses are normal and equal bilaterally without bruits. Pulmonary: Clear to auscultation bilaterally. Cardiac: Regular rhythm with no murmur, gallop or rub. Abdomen: Soft, nontender with normal bowel sounds. Extremities: No edema. Distal pulses intact. Neurologic: No focal findings. Gait is steady. Skin: No rash, she does have ecchymosis on both arms, no petechiae. Results & Data ([facility]) Vital Signs (Past 12 Hours) Vital Signs Temp Pulse Pulse Resp BP Pulse Ox 09/09/21 14:57 36.7 C 68 18 119/71 94 09/09/21 11:08 36.8 C 61 18 113/70 94 09/09/21 07:29 36.5 C 72 18 135/81 96 09/09/21 07:00 69 09/09/21 05:03 65 09/09/21 04:00 36.7 C 79 18 127/74 93 Laboratory Results CBC 09/09/21 Range/Units 08:20 WBC 15.05 H (4.8-10.8) K/uL RBC 4.18 L (4.2-5.4) M/uL Hgb 12.2 (12.0-16.0) g/dL Hct 36.7 L (37-47) % Plt Count 256 (130-400) K/uL Neut # (Auto) 12.31 H (1.4-6.5) K/uL Lymph # (Auto) 0.87 L (1.2-3.4) K/uL [place] # (Auto) 1.57 H (0.11-0.59) K/uL Eos # (Auto) 0.06 (0-0.5) K/uL Baso # (Auto) 0.04 (0-0.2) K/uL Comprehensive Metabolic Panel 09/09/21 Range/Units 08:20 Sodium 132 L (136-145) mmol/L Potassium 4.1 (3.5-5.1) mmol/L Chloride 99 (98-107) mmol/L Carbon Dioxide 19 L (21-32) mmol/L BUN 65 H (7-18) mg/dl Creatinine 2.26 H D (0.6-1.2) mg/dl Glucose 64 L (70-99) mg/dl Calcium 8.6 D (8.5-10.1) mg/dl Intake and Output 09/09/21 09/09/21 09/09/21 06:59 14:59 22:59 Intake Total 100 / 200 360 / 360 Output Total 350 / 350 Balance 100 / -201 Intake: Oral 100 / 200 360 / 360 Output: Urine 350 / 350 Other: Weight 60.4 kg Weight Measurement Method Built in [facility] Diagnostic Findings Telemetry: Sinus rhythm, no significant arrhythmia PG Care Time/CCT Total # of Minutes Spent Total Time Spent with Patient: Total time spent is greater than 50% in coordination of care (as documented) at patient's floor/unit and/or counseling patient: Coding Level of Care Code 74958 Subseq Hosp Care Lvl 3 Diagnoses Non-ST elevation (NSTEMI) myocardial infarction I21.4 CAD (coronary artery disease) I25.10 Dyslipidemia E78.5 Ischemic cardiomyopathy I25.5 Hypertension I10 JOAN (acute kidney injury) N17.9
[2021-09-10 00:37] LABS: Complement C3 108 mg/dL (83-193); Complement Total(CH50) >60 U/mL (31-60)
[2021-09-10] MEDS: LEVOTHYROXINE SODIUM 100 MCG TABLET PO SCH (06:05)
[2021-09-10 07:29] LABS: Hematocrit (blood only) 32.3 % (37-47); Hemoglobin 10.9 g/dL (12.0-16.0); Mean Corpuscular Hemoglobin 29.2 pg (25-34); Mean Corpuscular Hgb Conc 33.7 g/dL (32-36); Mean Corpuscular Volume 86.6 fL (80-100); Mean Platelet Volume 9.6 fL (7.4-10.4); Platelet Count 306 K/uL (130-400); RDW Standard Deviation 50.8 fL (36.4-46.3); Red Blood Count 3.73 M/uL (4.2-5.4); White Blood Count 11.42 K/uL (4.8-10.8)
[2021-09-10 07:55] LABS: BUN Creatinine Ratio 29.2 (10-20); Calcium 8.5 mg/dl (8.5-10.1); Creatinine Clr Calc Pharmacy 19.4 ml/min; Est GFR (African American) 26.4 ml/min; Est GFR (Non-African American) 22.7 ml/min; Potassium 3.9 mmol/L (3.5-5.1)
[2021-09-10 08:08] LABS: Basophils # (auto) 0.01 K/uL (0-0.2); Basophils % (auto) 0.1 %; Eosinophils # (auto) 0.07 K/uL (0-0.5); Eosinophils % (auto) 0.6 %; Immature Granulocytes % (auto) 0.9 %; Lymphocytes # (auto) 1.07 K/uL (1.2-3.4); Lymphocytes % (auto) 9.4 %; Monocytes # (auto) 0.64 K/uL (0.11-0.59); Monocytes % (auto) 5.6 %; Neutrophils # (auto) 9.53 K/uL (1.4-6.5); Neutrophils % (auto) 83.4 %
[2021-09-10] MEDS: traMADol HCL 50 MG TABLET PO PRN ×2 (08:10→19:59)
[2021-09-10] MEDS: SODIUM BICARBONATE 650 MG TAB PO SCH ×2 (08:11→19:57)
[2021-09-10] MEDS: XELJANZ 5 MG PO SCH (08:11)
[2021-09-10] MEDS: ursodioL 300 MG CAP PO SCH ×2 (08:11→19:58)
[2021-09-10] MEDS: carvediloL 6.25 MG TAB PO SCH ×2 (08:12→19:58)
[2021-09-10] MEDS: methylPREDNISolone 4 MG TAB PO SCH (08:12)
[2021-09-10] MEDS: ASCORBIC ACID 500 MG TAB PO SCH (08:12)
[2021-09-10] MEDS: ATORVASTATIN 40 MG TAB PO SCH (08:12)
[2021-09-10] MEDS: GABAPENTIN 100 MG CAP PO SCH ×2 (08:12→19:58)
[2021-09-10] MEDS: CYANOCOBALAMIN 500 MCG TABLET (VITAMIN B-12) PO SCH (08:12)
[2021-09-10] MEDS: ASPIRIN 81 MG ECTAB PO SCH (08:13)
[2021-09-10] MEDS: CLOPIDOGREL BISULFATE 75 MG TAB PO SCH (08:13)
[2021-09-10] MEDS: HYDROXYCHLOROQUINE SULFATE 200 MG TAB PO SCH (08:13)
[2021-09-10] MEDS: FLUTICASONE/VILANTEROL 200/25MCG 14 PUFFS/INHALER INH SCH (08:16)
[2021-09-10] MEDS: GENTAMICIN NAE SCH ×3 (08:16→19:58)
[2021-09-10] MEDS: SALINE NAE SCH ×3 (08:16→19:58)
[2021-09-10] MEDS: PANTOprazole 40 MG TAB PO SCH (08:18)
--- NOTE | 2021-09-10 10:31 | Nephrology Progress Note ---
Date of Service September 10, 2021 Assessment & Plan (1) Acute kidney injury: Plan: Clinically consistent with suspected ATN in the setting of ACS and hypotension. Non-oliguric. Volume status acceptable. Creatinine improved to baseline. Medications are appropriately dosed for kidney dysfunction. Document strict I/O's and repeat metabolic profile tomorrow AM. For hyponatremia, free water restriction 1 L/d ordered. NaHCO3 reduced to 650 mg twice daily which should be continued at discharge. Follow up with Dr. Arellano in the nephrology clinic within 1-2 weeks of discharge. (2) Anemia: Plan: Hgb stable. Venofer 200 mg IV and Epogen 4000 units provided 09/06. 2 units PRBC transfusion support provided 09/07. Remains on pantoprazole. EGD demonstrated mild gastritis. (3) Ischemic cardiomyopathy: Plan: Volume status remains acceptable. Maintain a continued even to slightly negative fluid balance. (4) Hypertension: Plan: Spironolactone held. Atenolol switched to metoprolol. Betablocker titrated by cardiology. YANG/ARB deferred at this time due to JOAN and hypotension. Patient also did not tolerate well in the past due to cough. BP acceptable. (5) CKD (chronic kidney disease): Plan: Baseline creatinine 1.6-2.0 mg/dL attributed to microvascular disease and history of NSAID use. Follows with Dr. Arellano as outpatient. Admission and Anticipated Discharge Date Admission Date: September 02, 2021 Subjective No acute events overnight. Feels well and hopes to go home today. Review of Systems Review of Systems: All systems reviewed & are unremarkable except as noted in HPI & below Physical Exam Constitutional: well developed; no acute distress Eyes: no scleral abnormality and no corneal abnormality ENMT: Mouth: no oral mucosal abnormality and oral mucous membranes not dry Neck: normal visual inspection and trachea midline Respiratory: normal respiratory effort Auscultation: lungs clear to auscultation bilaterally Cardiovascular: Rate/Rhythm: regular rate Heart Sounds: normal S1 and normal S2 Vessels: + JVD Extremities: no edema Musculoskeletal: Extremities: no cyanosis and no clubbing Skin: + turgor decreased and + ecchymosis Neurologic: Motor/Sensory: no tremor and no asterixis Psychiatric: Orientation: alert and oriented x 3 Results & Data ([facility]) Vital Signs (Past 12 Hours) Vital Signs Temp Pulse Pulse Resp BP Pulse Ox 09/10/21 08:00 36.8 C 70 18 137/76 95 09/10/21 07:38 66 09/10/21 02:45 36.7 C 67 16 123/76 96 09/09/21 23:53 66 09/09/21 22:38 36.8 C 67 18 128/77 95 Laboratory Results Laboratory Results - last 24 hr 09/05/21 09/10/21 09/10/21 06:43 07:00 07:00 WBC 11.42 H RBC 3.73 L Hgb 10.9 L Hct 32.3 L MCV 86.6 MCH 29.2 MCHC 33.7 RDW Std Deviation 50.8 H RDW Coeff of Sue 16.0 H Plt Count 306 MPV 9.6 Immature Gran % (Auto) 0.9 Neut % (Auto) 83.4 Lymph % (Auto) 9.4 [place] % (Auto) 5.6 Eos % (Auto) 0.6 Baso % (Auto) 0.1 Neut # (Auto) 9.53 H Lymph # (Auto) 1.07 L [place] # (Auto) 0.64 H Eos # (Auto) 0.07 Baso # (Auto) 0.01 Immature Gran # (Auto) 0.10 H Sodium 133 L Potassium 3.9 Chloride 98 Carbon Dioxide 25 Anion Gap 10.0 BUN 61 H Creatinine 2.09 H Est Cr Clr Drug Dosing 19.4 Est GFR ( Amer) 26.4 Est GFR (Non-Af Amer) 22.7 BUN/Creatinine Ratio 29.2 H Glucose 108 H Calcium 8.5 Complement C3 108 Complement C4 31 Tot Complement (CH50) >60 H PG Care Time/CCT Total # of Minutes Spent Total Time Spent with Patient: Total time spent is greater than 50% in coordination of care (as documented) at patient's floor/unit and/or counseling patient: Coding Level of Care Code 10679 Subseq Hosp Care Lvl 3 Diagnoses Acute kidney injury N17.9 Anemia D64.9 Ischemic cardiomyopathy I25.5 Hypertension I10 CKD (chronic kidney disease) N18.9
--- NOTE | 2021-09-10 12:16 | Hospitalist Progress Note ---
Date of Service September 10, 2021 Assessment & Plan (1) Non-ST elevation (NSTEMI) myocardial infarction: Plan: Angelika is a 75-year-old female with a notable past medical history of hypertension, rheumatoid arthritis, degenerative disc disease who presented to [facility] on 09/02 for evaluation of chest pain, fatigue, and shortness of breath. NSTEMI In the setting of approximately 1 day of chest pain, diaphoresis, nausea, and shortness of breath; also in the setting of significant life stress with 's cancer diagnosis ECG with evidence of anterolateral T wave inversions, plus Initial troponin elevated to 21.4 Chest x-ray pulmonary edema Cardiology consulted in ED, PCI 2 overlapping mid LAD NICOL, D1 NICOL, concern for additional disease in RCA and Circ with possible staged pci in the future -- however given onset of renal failure would not recommend further PCI at this time. Recommend medical therapy for now. Continue anti-platelet, high- intensity statin therapy, beta-lala. TTE with significantly depressed EF 25% dual antiplatelet therapy, atorvastatin 80 carvedilol 6.25 twice daily Nitro, morphine, ECG PRN w/ chest pain (2) Acute kidney injury: Plan: Acute kidney injury from catheterization contrast and some pre renal issues likely causing ATN Appreciate nephrology consult. Dr Chaparro did see in consult suspect ATN in the setting of ACS and hypotension nonoliguric, renal ultrasound no obstruction complement levels pending Improving, Cr 2.09 today (baseline 1.85) (3) Melena: Plan: Hgb stable s/p 2 units packed RBCs [09/07]. EGD - gastritis, no active bleeding Continue pantoprazole 40mg PO daily (4) Hypertension: Plan: Continue carvedilol, holding spironolactone in the face of JOAN, was given Lasix post procedure due to concern for heart failure hypoxemia (5) CKD (chronic kidney disease): Plan: As above for JOAN (6) Rheumatoid arthritis: Plan: Pt has immune suppressing medications, Plaquenil, daily methylprednisone, tofacitinib. No active flare (7) Hypothyroidism: Plan: TSH WNL Remains on levothyroxine 100mcg PO daily (8) Asthma: Plan: No exacerbation Continue maintenance inhaler with symbicort or hospital formulary equivalent (9) Osteoporosis: (10) Disc degeneration, lumbar: Plan: Code: FULL CODE - admitting team discussed with patient. Dispo: Medically stable for discharge at this time, awaiting placement Diet: HH diet VTE Prophylaxis - deferred in setting of requiring DAPT and continued drop in Hgb with melena. Admission and Anticipated Discharge Date Admission Date: September 02, 2021 Subjective No acute events overnight. BM now brown. No chest pain or shortness of breath. Last dose of Xeljanz today. Discussed with her son calling the pharmacy again to try and get the patient's Xeljanz which runs out today. Review of Systems Review of Systems: All systems reviewed & are unremarkable except as noted in HPI & below Physical Exam Constitutional: well developed; no acute distress Eyes: + anicteric sclerae; normal pupil size ENMT: Mouth: no oral mucosal abnormality and oral mucous membranes not dry Neck: normal visual inspection and trachea midline Respiratory: normal respiratory effort Cardiovascular: Extremities: + pedal edema (trace ankle b/l equal) Musculoskeletal: Extremities: no cyanosis and no clubbing Skin: + ecchymosis (bilateral upper extremities) Neurologic: moves all extremities and awake; not confused Psychiatric: Orientation: alert and oriented x 3 Results & Data Results & Data ([facility]) Vital Signs (Past 12 Hours) Vital Signs Temp Pulse Pulse Resp BP Pulse Ox 09/10/21 08:00 36.8 C 70 18 137/76 95 09/10/21 07:38 66 09/10/21 02:45 36.7 C 67 16 123/76 96 PG Care Time/CCT Total # of Minutes Spent Total Time Spent with Patient: Total time spent is greater than 50% in coordination of care (as documented) at patient's floor/unit and/or counseling patient: Coding Level of Care Code 76374 Subseq Hosp Care Lvl 1 Diagnoses Non-ST elevation (NSTEMI) myocardial infarction I21.4 Acute kidney injury N17.9 Melena K92.1 Hypertension I10 CKD (chronic kidney disease) N18.9 Rheumatoid arthritis M06.9 Hypothyroidism E03.9 Asthma J45.909 Osteoporosis M81.0 Disc degeneration, lumbar M51.36
--- NOTE | 2021-09-10 18:23 | Communication Note ---
Date of Service: September 02, 2021 I saw the patient with Dr. Booker, please see their note for details. Resident Activity Tracking Resident Involvement: Resident Care Provided Care Provided: Adult ED
[2021-09-11] MEDS: LEVOTHYROXINE SODIUM 100 MCG TABLET PO SCH (04:21)
[2021-09-11 08:09] LABS: Hemoglobin 11.2 g/dL (12.0-16.0); Mean Corpuscular Hemoglobin 29.2 pg (25-34); Mean Corpuscular Hgb Conc 32.9 g/dL (32-36); Mean Corpuscular Volume 88.5 fL (80-100); Mean Platelet Volume 9.3 fL (7.4-10.4); Platelet Count 317 K/uL (130-400); RDW Coefficient of Variation 15.9 % (11.5-14.5); Red Blood Count 3.84 M/uL (4.2-5.4); White Blood Count 11.27 K/uL (4.8-10.8)
[2021-09-11 08:27] LABS: Basophils # (auto) 0.01 K/uL (0-0.2); Basophils % (auto) 0.1 %; Eosinophils % (auto) 0.9 %; Immature Granulocytes # (auto) 0.09 K/uL (0.00-0.02); Immature Granulocytes % (auto) 0.8 %; Lymphocytes # (auto) 0.58 K/uL (1.2-3.4); Lymphocytes % (auto) 5.1 %; Monocytes % (auto) 8.9 %; Neutrophils # (auto) 9.49 K/uL (1.4-6.5); Neutrophils % (auto) 84.2 %
[2021-09-11 08:32] LABS: Calcium 8.8 mg/dl (8.5-10.1); Creatinine Clr Calc Pharmacy 20.5 ml/min; Est GFR (African American) 28.5 ml/min; Est GFR (Non-African American) 24.6 ml/min
[2021-09-11] MEDS: GABAPENTIN 100 MG CAP PO SCH ×2 (08:34→20:21)
[2021-09-11] MEDS: CLOPIDOGREL BISULFATE 75 MG TAB PO SCH (08:34)
[2021-09-11] MEDS: methylPREDNISolone 4 MG TAB PO SCH (08:34)
[2021-09-11] MEDS: ASCORBIC ACID 500 MG TAB PO SCH (08:35)
[2021-09-11] MEDS: CYANOCOBALAMIN 500 MCG TABLET (VITAMIN B-12) PO SCH (08:35)
[2021-09-11] MEDS: PANTOprazole 40 MG TAB PO SCH (08:35)
[2021-09-11] MEDS: ASPIRIN 81 MG ECTAB PO SCH (08:35)
[2021-09-11] MEDS: SODIUM BICARBONATE 650 MG TAB PO SCH ×2 (08:36→20:21)
[2021-09-11] MEDS: ursodioL 300 MG CAP PO SCH ×2 (08:36→20:21)
[2021-09-11] MEDS: ATORVASTATIN 40 MG TAB PO SCH (08:36)
[2021-09-11] MEDS: carvediloL 6.25 MG TAB PO SCH ×2 (08:37→20:22)
[2021-09-11] MEDS: GENTAMICIN NAE SCH ×2 (08:38→17:54)
[2021-09-11] MEDS: SALINE NAE SCH ×2 (08:38→17:54)
[2021-09-11] MEDS: XELJANZ 5 MG PO SCH (08:42)
[2021-09-11] MEDS: FLUTICASONE/VILANTEROL 200/25MCG 14 PUFFS/INHALER INH SCH (08:42)
[2021-09-11] MEDS: traMADol HCL 50 MG TABLET PO PRN ×3 (09:56→18:13)
[2021-09-11] MEDS: HYDROXYCHLOROQUINE SULFATE 200 MG TAB PO SCH (09:56)
--- NOTE | 2021-09-11 09:57 | Nephrology Progress Note ---
Date of Service September 11, 2021 Assessment & Plan (1) Acute kidney injury: Plan: * Resolved. Likely suffered ATN related to ACS/hypotension * Volume status is acceptable. Cr has improved to baseline (2.0) * Follow up with Dr. Arellano in the nephrology clinic within 1-2 weeks of discharge (2) CKD (chronic kidney disease): Plan: * Baseline Cr 2.0 mg/dL. 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 Continue 1L/day free water restriction * Continue NaHCO3 therapy to correct both serum sodium and metabolic acidosis (4) Hypertension: Plan: * Spironolactone held * Atenolol switched to metoprolol. Beta-lala titrated by cardiology. * YANG/ARB held due to h/o cough. (5) Anemia: Plan: * EGD revealed diffuse gastritis - remains on PPI therapy * Venofer 200 mg IV and Epogen 4000 units provided 09/06 * 2 units PRBC transfusion support provided 09/07 (6) Ischemic cardiomyopathy: Plan: * LVEF 25 - 30%. Now wears life vest * Admitted w/ STEMI s/p PCI LAD/D1 Admission and Anticipated Discharge Date Admission Date: September 02, 2021 Subjective Ms. burrows was evaluated in her hospital room this morning. She denied angina, dyspnea, flank pain, hematuria or uremic symptoms. Her primary concern is diarrhea. She is very anxious to return home Review of Systems Constitutional: + weakness; no fever Eyes: no worsening vision and no problem reported Ear, Nose, Mouth, Throat: no problem reported Respiratory: no cough and no dyspnea Cardiovascular: no chest pain, no palpitations and no edema Gastrointestinal: no abdominal pain, no nausea, no vomiting and no diarrhea/loose stools Genitourinary: no dysuria and no hematuria Musculoskeletal: no back pain Integumentary: no rash Neurologic: no falls, no dizziness and no confusion Physical Exam Constitutional: + frail appearing; not in distress wearing life vest Eyes: PERRL, conjunctivae normal, anicteric sclerae ENMT: external ear and nose normal, oropharynx normal Neck: trachea midline, no thyromegaly Respiratory: normal respiratory effort, lungs clear to auscultation Cardiovascular: RRR, no murmur, no edema Gastrointestinal (Abdomen): normal bowel sounds, soft, nontender, no hepatosplenomegaly Neurologic: awake; not confused Results & Data ([facility]) Vital Signs (Past 12 Hours) Vital Signs Temp Pulse Pulse Resp BP Pulse Ox 09/11/21 07:47 36.7 C 63 18 142/79 H 99 09/11/21 03:00 36.6 C 75 18 147/78 H 95 09/10/21 23:00 36.5 C 66 18 128/73 93 09/10/21 22:20 62 Laboratory Results Laboratory Tests 09/11/21 09/11/21 07:49 07:49 WBC 11.27 H Hgb 11.2 L Hct 34.0 L Plt Count 317 Sodium 132 L Potassium 4.0 Chloride 98 Carbon Dioxide 23 BUN 53 H Creatinine 1.96 H Glucose 84 PG Care Time/CCT Total # of Minutes Spent Total Time Spent with Patient: Total time spent is greater than 50% in coordination of care (as documented) at patient's floor/unit and/or counseling patient: Coding Level of Care Code 25577 Subseq Hosp Care Lvl 3 Diagnoses Acute kidney injury N17.9 Anemia D64.9 Ischemic cardiomyopathy I25.5 Hypertension I10 CKD (chronic kidney disease) N18.9 Hyponatremia E87.1
--- NOTE | 2021-09-11 21:20 | Hospitalist Progress Note ---
Date of Service September 11, 2021 Assessment & Plan (1) Non-ST elevation (NSTEMI) myocardial infarction: Plan: Angelika is a 75-year-old female with a notable past medical history of hypertension, rheumatoid arthritis, degenerative disc disease who presented to [facility] on 09/02 for evaluation of chest pain, fatigue, and shortness of breath. NSTEMI In the setting of approximately 1 day of chest pain, diaphoresis, nausea, and shortness of breath; also in the setting of significant life stress with 's cancer diagnosis ECG with evidence of anterolateral T wave inversions, plus Initial troponin elevated to 21.4 Chest x-ray pulmonary edema Cardiology consulted in ED, PCI 2 overlapping mid LAD NICOL, D1 NICOL, concern for additional disease in RCA and Circ with possible staged pci in the future -- however given onset of renal failure would not recommend further PCI at this time. Recommend medical therapy for now. Continue anti-platelet, high- intensity statin therapy, beta-lala. TTE with significantly depressed EF 25% dual antiplatelet therapy, atorvastatin 80 carvedilol 6.25 twice daily Nitro, morphine, ECG PRN w/ chest pain (2) Acute kidney injury: Plan: Acute kidney injury from catheterization contrast and some pre renal issues likely causing ATN Appreciate nephrology consult. Dr Chaparro did see in consult suspect ATN in the setting of ACS and hypotension nonoliguric, renal ultrasound no obstruction complement levels pending Improving, Cr 1.96 today (baseline 1.85) (3) Melena: Plan: Hgb stable s/p 2 units packed RBCs [09/07]. Stable since. EGD - gastritis, no active bleeding Continue pantoprazole 40mg PO daily (4) Hypertension: Plan: Continue carvedilol, holding spironolactone in the face of JOAN, was given Lasix post procedure due to concern for heart failure hypoxemia (5) CKD (chronic kidney disease): Plan: As above for JOAN (6) Rheumatoid arthritis: Plan: Pt has immune suppressing medications, Plaquenil, daily methylprednisone, tofacitinib. No active flare (7) Hypothyroidism: Plan: TSH WNL Remains on levothyroxine 100mcg PO daily (8) Asthma: Plan: No exacerbation Continue maintenance inhaler with symbicort or hospital formulary equivalent (9) Osteoporosis: (10) Disc degeneration, lumbar: Plan: Code: FULL CODE - admitting team discussed with patient. Dispo: Medically stable for discharge at this time, awaiting placement Diet: HH diet VTE Prophylaxis - deferred in setting of requiring DAPT and continued drop in Hgb with melena. Admission and Anticipated Discharge Date Admission Date: September 02, 2021 Subjective Sleeping but easily awakes to voice. No new symptoms. Awaiting placement at this time. Review of Systems Review of Systems: All systems reviewed & are unremarkable except as noted in HPI & below Physical Exam Constitutional: well developed; no acute distress Respiratory: normal respiratory effort Skin: + ecchymosis (bilateral upper extremities) Psychiatric: Orientation: alert and oriented x 3 Results & Data Results & Data ([facility]) Vital Signs (Past 12 Hours) Vital Signs Temp Pulse Pulse Resp BP BP Pulse Ox 09/11/21 15:29 36.7 C 67 18 126/75 92 09/11/21 14:24 65 09/11/21 10:57 36.3 C L 70 18 132/76 93 PG Care Time/CCT Total # of Minutes Spent Total Time Spent with Patient: Total time spent is greater than 50% in coordination of care (as documented) at patient's floor/unit and/or counseling patient: Coding Level of Care Code 81130 Subseq Hosp Care Lvl 1 Diagnoses Non-ST elevation (NSTEMI) myocardial infarction I21.4 Acute kidney injury N17.9 Melena K92.1 Hypertension I10 CKD (chronic kidney disease) N18.9 Rheumatoid arthritis M06.9 Hypothyroidism E03.9 Asthma J45.909 Osteoporosis M81.0 Disc degeneration, lumbar M51.36
[2021-09-12] MEDS: SALINE NAE SCH ×4 (00:10→20:22)
[2021-09-12] MEDS: GENTAMICIN NAE SCH ×4 (00:10→20:22)
[2021-09-12] MEDS: LEVOTHYROXINE SODIUM 100 MCG TABLET PO SCH (05:45)
[2021-09-12 06:50] LABS: Hematocrit (blood only) 34.6 % (37-47); Hemoglobin 11.4 g/dL (12.0-16.0); Mean Corpuscular Hemoglobin 29.2 pg (25-34); Mean Corpuscular Hgb Conc 32.9 g/dL (32-36); Mean Corpuscular Volume 88.7 fL (80-100); Mean Platelet Volume 9.6 fL (7.4-10.4); Platelet Count 327 K/uL (130-400); RDW Coefficient of Variation 15.8 % (11.5-14.5); RDW Standard Deviation 50.4 fL (36.4-46.3); White Blood Count 10.48 K/uL (4.8-10.8)
[2021-09-12 07:05] LABS: Basophils # (auto) 0.01 K/uL (0-0.2); Basophils % (auto) 0.1 %; Eosinophils # (auto) 0.05 K/uL (0-0.5); Eosinophils % (auto) 0.5 %; Immature Granulocytes # (auto) 0.09 K/uL (0.00-0.02); Immature Granulocytes % (auto) 0.9 %; Lymphocytes # (auto) 0.44 K/uL (1.2-3.4); Lymphocytes % (auto) 4.2 %; Monocytes # (auto) 1.12 K/uL (0.11-0.59); Monocytes % (auto) 10.7 %; Neutrophils # (auto) 8.77 K/uL (1.4-6.5); Neutrophils % (auto) 83.6 %
[2021-09-12] MEDS: traMADol HCL 50 MG TABLET PO PRN ×2 (08:34→18:05)
[2021-09-12] MEDS: FLUTICASONE/VILANTEROL 200/25MCG 14 PUFFS/INHALER INH SCH (08:34)
[2021-09-12] MEDS: ASCORBIC ACID 500 MG TAB PO SCH (08:34)
[2021-09-12] MEDS: ATORVASTATIN 40 MG TAB PO SCH (08:35)
[2021-09-12] MEDS: CLOPIDOGREL BISULFATE 75 MG TAB PO SCH (08:35)
[2021-09-12] MEDS: CYANOCOBALAMIN 500 MCG TABLET (VITAMIN B-12) PO SCH (08:35)
[2021-09-12] MEDS: HYDROXYCHLOROQUINE SULFATE 200 MG TAB PO SCH (08:35)
[2021-09-12] MEDS: PANTOprazole 40 MG TAB PO SCH (08:35)
[2021-09-12] MEDS: ASPIRIN 81 MG ECTAB PO SCH (08:35)
[2021-09-12] MEDS: methylPREDNISolone 4 MG TAB PO SCH (08:36)
[2021-09-12] MEDS: ursodioL 300 MG CAP PO SCH ×2 (08:36→20:22)
[2021-09-12] MEDS: carvediloL 6.25 MG TAB PO SCH ×2 (08:36→20:22)
[2021-09-12] MEDS: GABAPENTIN 100 MG CAP PO SCH ×2 (08:36→20:22)
[2021-09-12] MEDS: SODIUM BICARBONATE 650 MG TAB PO SCH ×2 (08:37→20:22)
[2021-09-12] MEDS: XELJANZ 5 MG PO SCH (08:38)
--- NOTE | 2021-09-12 09:24 | Nephrology Progress Note ---
Date of Service September 12, 2021 Assessment & Plan (1) Acute kidney injury: Plan: * Resolved. Likely suffered ATN related to ACS/hypotension * Volume status is acceptable. Cr has improved to baseline (2.0) * Follow up with Dr. Arellano in the nephrology clinic within 1-2 weeks of discharge * No further Nephrology testing indicated at this time. Will sign off. Please call if further assistance is needed (2) CKD (chronic kidney disease): Plan: * Baseline Cr 2.0 mg/dL. 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 Continue 1L/day free water restriction * Continue NaHCO3 therapy to correct both serum sodium and metabolic acidosis (4) Hypertension: Plan: * Spironolactone held * Atenolol switched to metoprolol. Beta-lala titrated by cardiology. * YANG/ARB held due to h/o cough. (5) Anemia: Plan: * EGD revealed diffuse gastritis - remains on PPI therapy * Venofer 200 mg IV and Epogen 4000 units provided 09/06 * 2 units PRBC transfusion support provided 09/07 (6) Ischemic cardiomyopathy: Plan: * LVEF 25 - 30%. Now wears life vest * Admitted w/ STEMI s/p PCI LAD/D1 (7) Diarrhea: Plan: * Consider testing for Clostridium Difficile toxin Admission and Anticipated Discharge Date Admission Date: September 02, 2021 Subjective Ms. Herrera was evaluated in her hospital room this morning. She denied angina, dyspnea, flank pain, hematuria or uremic symptoms. Her primary concern is persistent diarrhea Review of Systems Constitutional: + weakness; no fever Eyes: no worsening vision and no problem reported Ear, Nose, Mouth, Throat: no problem reported Respiratory: no cough and no dyspnea Cardiovascular: no chest pain, no palpitations and no edema Gastrointestinal: + diarrhea/loose stools; no abdominal pain Genitourinary: no dysuria and no hematuria Musculoskeletal: no back pain Integumentary: no rash Neurologic: no falls, no dizziness and no confusion Physical Exam Constitutional: + frail appearing; not in distress Eyes: PERRL, conjunctivae normal, anicteric sclerae ENMT: external ear and nose normal, oropharynx normal Neck: trachea midline, no thyromegaly Respiratory: normal respiratory effort, lungs clear to auscultation Cardiovascular: RRR, no murmur, no edema Gastrointestinal (Abdomen): normal bowel sounds, soft, nontender, no hepatosp lenomegaly Neurologic: awake; not confused Results & Data ([facility]) Vital Signs (Past 12 Hours) Vital Signs Temp Pulse Resp BP Pulse Ox 09/12/21 08:00 36.8 C 70 18 129/72 96 09/11/21 23:27 36.4 C L 76 18 137/76 94 Laboratory Results Laboratory Tests 09/11/21 09/12/21 07:49 06:14 WBC 10.48 Hgb 11.4 L Hct 34.6 L Plt Count 327 Sodium 132 L Potassium 4.0 Chloride 98 Carbon Dioxide 23 BUN 53 H Creatinine 1.96 H Glucose 84 PG Care Time/CCT Total # of Minutes Spent Total Time Spent with Patient: Total time spent is greater than 50% in coordination of care (as documented) at patient's floor/unit and/or counseling patient: Coding Level of Care Code 71415 Subseq Hosp Care Lvl 3 Diagnoses Acute kidney injury N17.9 CKD (chronic kidney disease) N18.9 Hyponatremia E87.1 Hypertension I10 Anemia D64.9 Ischemic cardiomyopathy I25.5 Diarrhea R19.7
--- NOTE | 2021-09-12 13:34 | Hospitalist Progress Note ---
Date of Service September 12, 2021 Assessment & Plan (1) Non-ST elevation (NSTEMI) myocardial infarction: Plan: Angelika is a 75-year-old female with a notable past medical history of hypertension, rheumatoid arthritis, degenerative disc disease who presented to [facility] on 09/02 for evaluation of chest pain, fatigue, and shortness of breath. NSTEMI In the setting of approximately 1 day of chest pain, diaphoresis, nausea, and shortness of breath; also in the setting of significant life stress with 's cancer diagnosis ECG with evidence of anterolateral T wave inversions, plus Initial troponin elevated to 21.4 Chest x-ray pulmonary edema Cardiology consulted in ED, PCI 2 overlapping mid LAD NICOL, D1 NICOL, concern for additional disease in RCA and Circ with possible staged pci in the future -- however given onset of renal failure would not recommend further PCI at this time. Recommend medical therapy for now. Continue anti-platelet, high- intensity statin therapy, beta-lala. TTE with significantly depressed EF 25% dual antiplatelet therapy, atorvastatin 80 carvedilol 6.25 twice daily Nitro, morphine, ECG PRN w/ chest pain (2) Acute kidney injury: Plan: Acute kidney injury from catheterization contrast and some pre renal issues likely causing ATN Appreciate nephrology consult. Dr Chaparro did see in consult suspect ATN in the setting of ACS and hypotension nonoliguric, renal ultrasound no obstruction, C3/C4 WNL Improving, (baseline 1.85) Has not needed to restart diuretics (3) Melena: Plan: Hgb stable s/p 2 units packed RBCs [09/07]. Stable since. EGD - gastritis, no active bleeding Continue pantoprazole 40mg PO daily Bright red blood in stool today. If continues will need to reconsult GI for consideration of colonoscopy but given recent NSTEMI will hold off for one episode and repeat CBC tomorrow. Imodium PRN for diarrhea (4) Hypertension: Plan: Continue carvedilol, holding spironolactone in the face of JOAN, was given Lasix post procedure due to concern for heart failure hypoxemia (5) CKD (chronic kidney disease): Plan: As above for JOAN (6) Rheumatoid arthritis: Plan: Pt has immune suppressing medications, Plaquenil, daily methylprednisone, tofacitinib (will need to call rheumatology office on Monday to have her outpatient prescription approved to get it here). No active flare (7) Hypothyroidism: Plan: TSH WNL Remains on levothyroxine 100mcg PO daily (8) Asthma: Plan: No exacerbation Continue maintenance inhaler with symbicort or hospital formulary equivalent (9) Osteoporosis: (10) Disc degeneration, lumbar: Plan: Code: FULL CODE - admitting team discussed with patient. Dispo: Medically stable for discharge at this time, awaiting placement Diet: HH diet VTE Prophylaxis - deferred in setting of requiring DAPT and continued drop in Hgb with melena. Admission and Anticipated Discharge Date Admission Date: September 02, 2021 Subjective Had some diarrhea yesterday. One episode of bright red blood in stool today. No nausea, vomiting or abdominal pain. No recurrence of melena. No chest pain, shortness of breath or dizziness. No RA flare off Xeljanz. 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 Under [facility] rheumatology. Review of Systems Review of Systems: All systems reviewed & are unremarkable except as noted in HPI & below Physical Exam Constitutional: well developed; no acute distress Respiratory: normal respiratory effort Cardiovascular: Extremities: + pedal edema (trace ankle b/l equal) Gastrointestinal (Abdomen): normal bowel sounds, soft, nontender, no hepatosplenomegaly Skin: + ecchymosis (bilateral upper extremities, improving) Neurologic: moves all extremities and awake; not confused Psychiatric: Orientation: alert and oriented x 3 Results & Data Results & Data ([facility]) Vital Signs (Past 12 Hours) Vital Signs Temp Pulse Resp BP Pulse Ox 09/12/21 08:00 36.8 C 70 18 129/72 96 PG Care Time/CCT Total # of Minutes Spent Total Time Spent with Patient: Total time spent is greater than 50% in coordination of care (as documented) at patient's floor/unit and/or counseling patient: Coding Level of Care Code 47672 Subseq Hosp Care Lvl 2 Diagnoses Non-ST elevation (NSTEMI) myocardial infarction I21.4 Acute kidney injury N17.9 Melena K92.1 Hypertension I10 CKD (chronic kidney disease) N18.9 Rheumatoid arthritis M06.9 Hypothyroidism E03.9 Asthma J45.909 Osteoporosis M81.0 Disc degeneration, lumbar M51.36
[2021-09-12] MEDS: LOPERAMIDE HCL 2 MG CAP PO PRN ×2 (13:58→18:05)
[2021-09-13] MEDS: LEVOTHYROXINE SODIUM 100 MCG TABLET PO SCH (05:34)
[2021-09-13 06:58] LABS: Hematocrit (blood only) 36.9 % (37-47); Mean Corpuscular Hemoglobin 29.5 pg (25-34); Mean Corpuscular Hgb Conc 32.5 g/dL (32-36); Mean Corpuscular Volume 90.7 fL (80-100); Mean Platelet Volume 9.6 fL (7.4-10.4); Platelet Count 234 K/uL (130-400); RDW Coefficient of Variation 15.8 % (11.5-14.5); RDW Standard Deviation 52.8 fL (36.4-46.3); Red Blood Count 4.07 M/uL (4.2-5.4)
[2021-09-13 07:13] LABS: BUN Creatinine Ratio 24.9 (10-20); Calcium 7.8 mg/dl (8.5-10.1); Creatinine Clr Calc Pharmacy 22.6 ml/min; Est GFR (Non-African American) 27.6 ml/min; Potassium 4.4 mmol/L (3.5-5.1)
[2021-09-13] MEDS: PANTOprazole 40 MG TAB PO SCH (07:42)
[2021-09-13] MEDS: GABAPENTIN 100 MG CAP PO SCH ×2 (07:42→21:27)
[2021-09-13] MEDS: ursodioL 300 MG CAP PO SCH ×2 (07:42→21:27)
[2021-09-13] MEDS: CYANOCOBALAMIN 500 MCG TABLET (VITAMIN B-12) PO SCH (07:43)
[2021-09-13] MEDS: ATORVASTATIN 40 MG TAB PO SCH (07:43)
[2021-09-13] MEDS: PSYLLIUM 58.6% POWDER PACKET PO PRN (07:43)
[2021-09-13] MEDS: HYDROXYCHLOROQUINE SULFATE 200 MG TAB PO SCH (07:44)
[2021-09-13] MEDS: CLOPIDOGREL BISULFATE 75 MG TAB PO SCH (07:44)
[2021-09-13] MEDS: ASPIRIN 81 MG ECTAB PO SCH (07:44)
[2021-09-13] MEDS: ASCORBIC ACID 500 MG TAB PO SCH (07:44)
[2021-09-13] MEDS: SODIUM BICARBONATE 650 MG TAB PO SCH ×2 (07:45→21:27)
[2021-09-13] MEDS: carvediloL 6.25 MG TAB PO SCH ×2 (07:45→21:28)
[2021-09-13] MEDS: methylPREDNISolone 4 MG TAB PO SCH (07:45)
[2021-09-13] MEDS: FLUTICASONE/VILANTEROL 200/25MCG 14 PUFFS/INHALER INH SCH (07:46)
[2021-09-13] MEDS: XELJANZ 5 MG PO SCH (07:47)
[2021-09-13] MEDS: GENTAMICIN NAE SCH ×3 (07:47→19:39)
[2021-09-13] MEDS: SALINE NAE SCH ×3 (07:47→19:39)
[2021-09-13] MEDS: LOPERAMIDE HCL 2 MG CAP PO PRN (07:51)
[2021-09-13] MEDS: traMADol HCL 50 MG TABLET PO PRN ×2 (07:51→19:38)
--- NOTE | 2021-09-13 09:17 | Hospitalist Progress Note ---
Date of Service September 13, 2021 Assessment & Plan (1) Non-ST elevation (NSTEMI) myocardial infarction: Plan: Angelika is a 75-year-old female with a notable past medical history of hypertension, rheumatoid arthritis, degenerative disc disease who presented to [facility] on 09/02 for evaluation of chest pain, fatigue, and shortness of breath. NSTEMI In the setting of approximately 1 day of chest pain, diaphoresis, nausea, and shortness of breath; also in the setting of significant life stress with 's cancer diagnosis ECG with evidence of anterolateral T wave inversions, plus Initial troponin elevated to 21.4 Chest x-ray pulmonary edema Cardiology consulted in ED, PCI 2 overlapping mid LAD NICOL, D1 NICOL, concern for additional disease in RCA and Circ with possible staged pci in the future -- however given onset of renal failure would not recommend further PCI at this time. Recommend medical therapy for now. Continue anti-platelet, high- intensity statin therapy, beta-lala. TTE with significantly depressed EF 25% dual antiplatelet therapy, atorvastatin 80 carvedilol 6.25 twice daily (2) Acute kidney injury: Plan: Acute kidney injury from catheterization contrast and some pre renal issues likely causing ATN Appreciate nephrology consult. Dr Chaparro did see in consult suspect ATN in the setting of ACS and hypotension nonoliguric, renal ultrasound no obstruction, C3/C4 WNL resolved , (baseline 1.85) (3) Melena: Plan: Hgb stable s/p 2 units packed RBCs [09/07]. Stable since. EGD 09/08 - gastritis, no active bleeding Continue pantoprazole 40mg PO daily Bright red blood in stool, cbc remains stable (4) Hypertension: Plan: Continue carvedilol, holding spironolactone in the face of JOAN (5) CKD (chronic kidney disease): Plan: As above for JOAN (6) Rheumatoid arthritis: Plan: Pt has immune suppressing medications, Plaquenil, daily methylprednisone, tofacitinib no acute flare at this time (7) Hypothyroidism: Plan: TSH WNL Remains on levothyroxine 100mcg PO daily (8) Asthma: Plan: No exacerbation Continue maintenance inhaler with symbicort or hospital formulary equivalent (9) Osteoporosis: (10) Disc degeneration, lumbar: Plan: Code: FULL CODE - admitting team discussed with patient. Dispo: Medically stable for discharge at this time, awaiting placement Diet: HH diet VTE Prophylaxis - deferred in setting of requiring DAPT and continued drop in Hgb with melena. Admission and Anticipated Discharge Date Admission Date: September 02, 2021 Subjective Patient has no significant complaints except that she has persistent diarrhea which is opposite of her usual state at home which is usually constipation. She tends to blame the food ,pending stool studies Review of Systems Review of Systems: Mild distress and fatigue no headache, no visual changes no speech or swallowing issues no further chest pain, pressure or palpitations no shortness of breath. no cough no abdominal pain, does have nausea no vomiting, c/o still having diarrhea no dysuria, hematuria or frequency no focal joint pain or swelling no back pain, CVA tenderness or radicular pain arm bruising, no active bleeding or rashes no focal signs of weakness or numbness or altered sensation no complaints of anxiety or depression. Physical Exam Physical Exam: The patient appeared to have improving strength Vital signs as documented. Head exam is normocephalic atraumatic Neck is without JVD, thyromegaly, or carotid bruits. Lungs only scant rales at the bases Cardiac exam, Rhythm is regular.. moe Abdominal exam reveals normal bowel sounds, soft non tender, no masses Extremities are trace edematous bilaterally and both pedal pulses are present Neurologic exam is alert and oriented, no focal loss of strength or sensation Skin is with changes of chronic steroid use Psychologically is without concerns for anxiety or depression Results & Data Results & Data ([facility]) Vital Signs (Past 12 Hours) Vital Signs Temp Pulse Resp BP Pulse Ox 09/13/21 07:47 98.4 F 83 16 125/72 92 09/12/21 23:06 98.4 F 82 16 118/77 95 PG Care Time/CCT Total # of Minutes Spent Total Time Spent with Patient: Total time spent is greater than 50% in coordination of care (as documented) at patient's floor/unit and/or counseling patient: Coding Level of Care Code 33111 Subseq Hosp Care Lvl 1 Diagnoses Non-ST elevation (NSTEMI) myocardial infarction I21.4 Acute kidney injury N17.9 Melena K92.1 Hypertension I10 CKD (chronic kidney disease) N18.9 Rheumatoid arthritis M06.9 Hypothyroidism E03.9 Asthma J45.909 Osteoporosis M81.0 Disc degeneration, lumbar M51.36
[2021-09-14] MEDS: LEVOTHYROXINE SODIUM 100 MCG TABLET PO SCH (05:34)
[2021-09-14] MEDS: GENTAMICIN NAE SCH ×2 (08:12→14:17)
[2021-09-14] MEDS: traMADol HCL 50 MG TABLET PO PRN (08:12)
[2021-09-14] MEDS: SALINE NAE SCH ×2 (08:12→14:17)
[2021-09-14] MEDS: FLUTICASONE/VILANTEROL 200/25MCG 14 PUFFS/INHALER INH SCH (08:12)
[2021-09-14] MEDS: SODIUM BICARBONATE 650 MG TAB PO SCH (08:13)
[2021-09-14] MEDS: ATORVASTATIN 40 MG TAB PO SCH (08:13)
[2021-09-14] MEDS: ursodioL 300 MG CAP PO SCH (08:13)
[2021-09-14] MEDS: CYANOCOBALAMIN 500 MCG TABLET (VITAMIN B-12) PO SCH (08:13)
[2021-09-14] MEDS: GABAPENTIN 100 MG CAP PO SCH (08:13)
[2021-09-14] MEDS: HYDROXYCHLOROQUINE SULFATE 200 MG TAB PO SCH (08:13)
[2021-09-14] MEDS: carvediloL 6.25 MG TAB PO SCH (08:13)
[2021-09-14] MEDS: ASPIRIN 81 MG ECTAB PO SCH (08:13)
[2021-09-14] MEDS: methylPREDNISolone 4 MG TAB PO SCH (08:13)
[2021-09-14] MEDS: CLOPIDOGREL BISULFATE 75 MG TAB PO SCH (08:13)
[2021-09-14] MEDS: ASCORBIC ACID 500 MG TAB PO SCH (08:13)
[2021-09-14] MEDS: XELJANZ 5 MG PO SCH (08:14)
[2021-09-14] MEDS: LOPERAMIDE HCL 2 MG CAP PO PRN (10:37)
--- NOTE | 2021-09-14 17:54 | Discharge Summary ---
Date of Service September 14, 2021 Admission HPI Per Admitting Provider Angelika is a 75-year-old female with a notable past medical history of hypertension, rheumatoid arthritis, degenerative disc disease who presented to on 09/02 for evaluation of chest pain, fatigue, and shortness of breath. Patient notes that her symptoms began yesterday around 1:30 PM and manifested as a dull, substernal chest pain that radiates to her back. It was pretty constant in character; however, it did grow worse as the day went on and into the night. It kept her up at night. She began to feel diaphoretic and nauseous. She also endorsed today feeling more short of breath. Because of all the symptoms, she decided to report to the emergency room for further evaluation. At the time my visitation, patient does report a 6 out of 10 substernal chest pain that is not improved since receipt of her nitroglycerin. She denies current shortness of breath. Does endorse a mild headache. Denies any nausea present. Patient does report that she and her family have been under significant stress at home. Her is currently battling advanced esophageal cancer. She denies recent illnesses otherwise and before yesterday, was in her normal health. She denies any baseline chest pain or pressure with exertion. Denies any shortness of breath with exertion. Denies any orthopnea or paroxysmal nocturnal dyspnea. No history of heart disease known to her. She denies any tobacco use, alcohol use or recreational drug use. She has been taking her medications as prescribed. Medications were reviewed one by one with her. In the ER, patient was found to be hemodynamically stable but with chest pain. Her EKG demonstrated anterolateral T wave inversions. Her troponin was elevated to 21. She was also noted to have a mild leukocytosis. She was given aspirin 325, nitroglycerin, and started on heparin low-dose with bolus. Cardiology was consulted by the emergency physician, who subsequently prepared patient for PCI. Principal Diagnosis NSTEMI Acute kidney injury-resolved, ckd 3 Anemia, gastritis seen on EGD, transfused 2 u prbc Discharge Exam The patient appeared well, but obvious has declined due to ischemic cardiomyopathy and now chronic systolic heart failure Vital signs as documented. Lungs are clear to auscultation and appear unlabored Cardiac exam, Rhythm is regular..moe. Abdominal exam reveals normal bowel sounds, soft non tender, no masses Extremities are nonedematous and both pedal pulses are normal. Neurologic exam is alert and oriented, no focal loss of strength or sensation Skin is with bruises from antiplatelets and chronic steroids Psychologically is without concerns for anxiety or depression. Discharge Data Allergies Allergy/AdvReac Type Severity Reaction Status Date / Time amoxicillin Allergy Intermediate SEVERE Verified 09/08/21 10:17 RHEUMATOID ARTHRITIC SYMPTOMS clavulanic acid Allergy Intermediate SEVERE Verified 09/08/21 10:17 RHEUMATOID ARTHRITIC SYMPTOMS iodine Allergy Intermediate Stage 1V Verified 09/08/21 10:17 kidney disease auranofin [From Ridaura] Allergy Mild Rash Verified 09/08/21 10:17 infliximab [From Remicade] Allergy Mild Rash Verified 09/08/21 10:17 Sulfa (Sulfonamide AdvReac Intermediate "give me Verified 09/08/21 10:17 Antibiotics) anxiety" Consultations 09/02/21 12:32 Consult Cardiac Catheterization Routine Consult Cardiology Routine 09/04/21 07:36 Consult Nephrology Routine 09/07/21 12:20 Consult Gastroenterology Routine Procedures Performed Operation Date: 09/02/21 10:00 Actual Procedures p Cath, Left with Cors and Vent - Nila Belcher MD p Drug Eluting Stent SGl Vessel - Nila Belcher MD s Cineradiography w/Routine Exam - Nila Belcher MD s Drug Eluting Stent each ADDTL Vessel - Nila Belcher MD Operation Date: 09/08/21 16:00 Actual Procedures p Esophagogastroduodenoscopy - Griffin Doll DO Ordered Studies 09/02/21 10:00 CL Cath Imgs for PACS use only Stat 09/04/21 07:36 US renal/blad retro comp Routine Hospital Course (1) Non-ST elevation (NSTEMI) myocardial infarction: Angelika is a 75-year-old female with a notable past medical history of hypertension, rheumatoid arthritis, degenerative disc disease who presented to on 09/02 for evaluation of chest pain, fatigue, and shortness of breath. NSTEMI In the setting of approximately 1 day of chest pain, diaphoresis, nausea, and shortness of breath; also in the setting of significant life stress with 's cancer diagnosis ECG with evidence of anterolateral T wave inversions, plus Initial troponin elevated to 21.4 Chest x-ray pulmonary edema Cardiology consulted in ED, PCI 2 overlapping mid LAD NICOL, D1 NICOL, concern for additional disease in RCA and Circ with possible staged pci in the future --however given onset of renal failure would not recommend further PCI at this time. Recommend medical therapy for now. Continue anti-platelet, high- intensity statin therapy, beta-lala. TTE with significantly depressed EF 25% dual antiplatelet therapy, atorvastatin 80 carvedilol 6.25 twice daily pt has a chest vest applied to avoid arrhythmia associated mortality (2) Acute kidney injury: Acute kidney injury from catheterization contrast and some pre renal issues likely causing ATN Appreciate nephrology consult. Dr Chaparro did see in consult suspect ATN in the setting of ACS and hypotension nonoliguric, renal ultrasound no obstruction, C3/C4 WNL resolved , (baseline 1.85) (3) Melena: Hgb stable s/p 2 units packed RBCs [09/07]. Stable since. EGD 09/08 - gastritis, no active bleeding Continue pantoprazole 40mg PO daily cbc remains stable (4) Hypertension: Continue carvedilol, holding spironolactone in the face of JOAN (5) CKD (chronic kidney disease): As above for JOAN (6) Rheumatoid arthritis: Pt has immune suppressing medications, Plaquenil, daily methylprednisone, tofacitinib no acute flare at this time (7) Hypothyroidism: TSH WNL Remains on levothyroxine 100mcg PO daily (8) Asthma: No exacerbation Continue maintenance inhaler with symbicort or hospital formulary equivalent (9) Osteoporosis: (10) Disc degeneration, lumbar: Code: FULL CODE - admitting team discussed with patient. Dispo: Medically stable for discharge at this time Pt did have some diarrhea, testing negatively for d diff and preliminary stool cultures are negative at this time but not finalized Total Time Total Time Spent Total Time Spent (In Minutes): it took greater than 30 minutes to prepare this discharge process Discharge Plan Discharge Items Patient Disposition: Transfer Inpatient Rehab Fac Reason For Visit: NSTEMI Discharge Diagnosis: heart attack with stents to coronary artery acute kidney injury resolved anemia due to gastritis, with transfusion of 2 units of blood ischemic cardiomyopathy Activity: Per Instructions section Activity Comment: per PT/OT recommendations Non-emergency contact: Primary Care Provider and Forest Management Teacher Call non-emergency contact if: your symptoms worsen and you have a fever Follow-up/Referrals: Francisco Velez DO [Primary Care Provider] - Pat Degroot PA-C [Physician Marine Steam Fitter] - 09/17/21 9:30 am (Congestive Heart Failure Program Appointment Information Early follow up is essential to managing your heart failure. An appointment has been scheduled for you with the [facility] Heart Failure Program within 7 days of discharge. Anticipate this visit to be 30-60 minutes long. Please expect a press feeder broomcorn phone call from one of our nurses approximately 48 hours from discharge. They will also be placing an order for lab work to be completed 1-2 days prior to your heart failure follow up appointment. Please be sure to have this done so we can go over the results when you come in. Office Location The cardiology office building is located in front of the hospital at [address] Bring the following with you to your follow-up doctor appointments: Please bring your daily weight log any discharge paperwork all of your medication bottles with you to this visit. ) Diet: Heart Healthy Addtl Attending Provider Instructions: since you did have stents placed in your coronary arteries it is very important that you continue medications to help prevent the stents from becomming blocked this will be aspirin and clopidogrel and your heart doctor will continue to monitor these medications you did have some anemia and will benefit from good hydration and nutrition to build your blood counts back up Addtl Chlorobutadiene Scrubber Operator Provider Instructions: Call your Primary Care doctor if any of the following symptoms or problems start or get worse: * Shortness of breath or difficulty breathing * Wake up at night short of breath * Chest pain * Cough * Swelling of your hands, feet, or legs * More fatigued or tired with your normal activity * Palpitations - sudden fast heart beats WEIGHT * Weigh yourself every morning after using the bathroom. * Use the same scale. * Wear the same amount of clothing. * Write your weight down on a chart. * Call your Primary Care doctor if you gain more than 2-3 pounds in 1-2 days. MEDICATIONS * Use this discharge instruction sheet for medication instructions. * Take your medications at the time your doctor ordered. * Do not skip a dose of your medicines. * If you miss a dose of medicine, take it as soon as possible, but DO NOT DOUBLE A DOSE. * Read your medicine information when you get home. * Know all of the side effects of your medicine. If in doubt, ask your pharmacist * Call your Primary Care doctor's office if you have any side effects. * Be sure all of your doctors know what medicine and herbs you take (including cold, flu, and herbal medicine). Take the following with you to your follow-up doctor appointments: * Weight Chart * Medication List * List of questions Do not drink excessive alcohol, beer or wine. Pending Studies at Discharge: No Stand-Alone Forms: My [facility] Skilled Items Patient informed of condition?: Yes DNR: No Discharge Level of Care: Acute rehab Communicable Disease: No Discharge Prognosis: Stable Lines: None Urinary Catheter: No Medications and DC Order Prescriptions: New clopidogrel 75 mg Tablet 75 mg PO QAM Qty: 30 RF: 5 atorvastatin 40 mg Tablet 80 mg PO QAM Qty: 30 RF: 5 carvedilol 6.25 mg Tablet 6.25 mg PO BID Qty: 60 RF: 5 aspirin 81 mg Tablet,Delayed Release (Dr/Ec) 81 mg PO QAM Qty: 30 RF: 5 Continued Xeljanz 5 mg tablet 5 mg PO QAM RF: 0 ascorbate calcium (vitamin C) 500 mg tablet 500 mg PO QAM RF: 0 cyanocobalamin (vitamin B-12) 1,000 mcg capsule 1,000 mcg PO QAM RF: 0 levalbuterol HCl [Xopenex] 0.63 mg/3 mL solution for nebulization 0.63 mg INH QID PRN (Reason: Wheezing) RF: 0 ursodiol 300 mg capsule 300 mg PO BID RF: 0 methylprednisolone 4 mg tablet 4 mg PO QAM RF: 0 hydroxychloroquine [Plaquenil] 200 mg tablet 200 mg PO QAM RF: 0 gabapentin 100 mg capsule 100 mg PO BID Qty: 60 RF: 11 fluticasone propion-salmeterol [Advair Diskus] 500-50 mcg/dose blister with device 1 inh INH BID Qty: 3 RF: 5 levothyroxine 100 mcg tablet 100 mcg PO QAM Qty: 90 RF: 3 tramadol 50 mg tablet 50 mg PO Q8H PRN (Reason: Pain) Qty: 90 RF: 0 gentamicin sulfate (PF) 60 mg/6 mL solution 60 mg inhalation UD PRN (Reason: Nasal Congestion) Qty: 45 RF: 3 albuterol sulfate [Ventolin HFA] 90 mcg/actuation HFA aerosol inhaler 2 puff INH Q4H PRN (Reason: Wheezing) Qty: 8.5 RF: 5 biotin 5,000 mcg tablet, sublingual 5,000 mcg SL QAM RF: 0 psyllium husk [Metamucil] 0.52 gram Capsule 0.52 g PO BIDM RF: 0 diclofenac sodium [Voltaren Arthritis Pain] 1 % gel 2 g TOPICAL QID PRN (Reason: Pain) RF: 0 Discontinued spironolactone 25 mg tablet 25 mg PO QAM Qty: 90 RF: 3 atenolol [Tenormin] 25 mg tablet 12.5 mg PO QAM Qty: 45 RF: 3 furosemide 20 mg tablet 10 mg PO QAM Qty: 45 RF: 3 sodium chloride 1 gram tablet 1,000 mg PO QDD RF: 0 sennosides [Senokot] 8.6 mg tablet 8.6 mg PO HS PRN (Reason: Constipation) RF: 0 docusate sodium [Colace] 100 mg Capsule 100 mg PO BID RF: 0 Discharge Orders: Discharge Order (Routine); Ordered 09/14/21 Ordered By: Ariel Gong Admission Data Admit Date/Time: 09/02/21 12:08 Attending Provider: Ariel Gong Admit Provider: [place] Rankin Primary Care Provider: Francisco Velez Other Providers: Nila Belcher ; [facility] ; George Saucedo ; Beny Morrissey ; Rj Nagy ; Edil Marks ; Kevin Vidal Jr ; Lauri Hinojosa ; Mima Malin Allison M. ; Marino Jeffery ; Marino Awad ; Arnoldo Lopez Jennifer M. ; Al Vázquez ; Avi Heck Michael K. ; Collin Chaparro ; Griffin Doll Other Interventions: Discharge Summary Assessment (RN) Last Done: 09/14/21 14:43 Coding Level of Care Code D/C DAY MANAGEMENT >30 MINS Diagnoses Non-ST elevation (NSTEMI) myocardial infarction I21.4 Acute kidney injury N17.9 Melena K92.1 Hypertension I10 CKD (chronic kidney disease) N18.9 Rheumatoid arthritis M06.9 Hypothyroidism E03.9 Asthma J45.909 Osteoporosis M81.0 Disc degeneration, lumbar M51.36
== END 2021-09-14 15:57 | DRG 246 ==
LOC: ED 08:05 → 2S 10:06 → SUATTDRO 12:08 → 2S 12:08 → 2N 09-08 17:21

== ENCOUNTER 2021-10-06 14:25 | Inpatient (IN) ==
[2021-10-06] MEDS ORDERED: PANTOprazole 40 MG in SYRINGE 0 ML IV ONE (14:44)
[2021-10-06] MEDS ORDERED: SODIUM CHLORIDE 0.9% 250 ML IV PRN (14:44)
--- NOTE | 2021-10-06 14:44 | Emergency Department Note ---
History of Present Illness General Chief complaint: Illness Time Seen by Provider: 10/06/21 14:30 Source: patient Mode of arrival: EMS History of Present Illness Provider complaint: Anemia Onset (ago): day(s) Location: abdomen Severity: moderate Pain Consistency: + constant Quality: + other (Hemoglobin 7 today) Relieved By: + none Associated symptoms: + cough and + weakness; no chest pain, no fever/chills, no headaches, no nausea/vomiting or no shortness of breath This is a 75-year-old female presents with generalized weakness worse in both of her legs. She states that it started when she was admitted for a heart attack last month. She states that she has not really been able to move her legs since it occurred. She had anemia during her hospitalization and had to be transfused. When she was discharged to [facility] her hemoglobin was 9. Yesterday they checked it and it was 7.2. They checked again today and it was 7 and she was sent here for transfusion. She states that she has been coughing for about 2 weeks. She had Covid testing in the hospital which was negative but they checked her yesterday with a rapid test and it was positive. She had a PCR test sent but the results will be back for a few days. She denies any shortness of breath or chest discomfort. She states she has had no fevers. She denies any black or bloody stools. She has not been vomiting. She does get Lovenox shots to her belly and she is on Plavix and aspirin. Home Medications Medication Instructions Recorded Confirmed Type ascorbate calcium (vitamin C) 500 500 mg PO QAM 02/15/19 10/06/21 History mg tablet cyanocobalamin (vitamin B-12) 1,000 mcg PO QAM 02/15/19 10/06/21 History 1,000 mcg capsule ursodiol 300 mg capsule 300 mg PO BID 02/15/19 10/06/21 History biotin 5,000 mcg sublingual tablet 5,000 mcg SL QAM 05/29/19 10/06/21 History methylprednisolone 4 mg tablet See Rx Instructions .ROUTE 05/21/20 10/06/21 History .COMPLEX tab hydroxychloroquine 200 mg tablet 200 mg PO QAM tab 11/16/20 10/06/21 History (Plaquenil) gentamicin sulfate (PF) 60 mg/6 mL 60 mg INHALATION UD PRN #45 ml 12/02/20 10/06/21 Rx intravenous solution albuterol sulfate 90 mcg/actuation 2 puff INH Q4H PRN #8.5 g 07/01/21 10/06/21 Rx aerosol inhaler (Ventolin HFA) diclofenac sodium 1 % topical gel 2 g TOPICAL QID PRN 09/02/21 10/06/21 History (Voltaren Arthritis Pain) atorvastatin 40 mg tablet 80 mg PO QAM #30 tab 09/14/21 10/06/21 Rx clopidogrel 75 mg tablet 75 mg PO QAM #30 tab 09/14/21 10/06/21 Rx psyllium husk 0.52 gram capsule 0.52 g PO BIDM 09/17/21 10/06/21 History (Metamucil) sodium chloride 1 gram tablet 1,000 mg PO DAILY tab 10/04/21 10/06/21 History acetaminophen 325 mg tablet 650 mg PO Q4H PRN 10/06/21 10/06/21 History (Tylenol) bisacodyl 10 mg rectal suppository 10 mg NE DAILY PRN 10/06/21 10/06/21 History carvedilol 12.5 mg tablet 12.5 mg PO BIDM 10/06/21 10/06/21 History dextromethorphan-guaifenesin 30 1 tab PO BID 10/06/21 10/06/21 History mg-600 mg tablet extended [id number] hr (Mucinex DM) docusate sodium 100 mg capsule 100 mg PO BID 10/06/21 10/06/21 History ferrous sulfate 325 mg (65 mg 325 mg PO BIDM 10/06/21 10/06/21 History iron) tablet fluticasone furoate 200 1 inh INHALATION DAILY 10/06/21 10/06/21 History mcg-vilanterol 25 mcg/dose inhalation powder (Breo Ellipta) gabapentin 100 mg capsule 200 mg PO HS 10/06/21 10/06/21 History levothyroxine 100 mcg tablet 100 mcg PO DAILYBB 10/06/21 10/06/21 History loperamide 2 mg tablet (Imodium 2 mg PO Q4H PRN 10/06/21 10/06/21 History A-D) magnesium hydroxide 400 mg/5 mL 30 ml PO DAILY PRN 10/06/21 10/06/21 History oral suspension (Milk of Magnesia) ondansetron 4 mg disintegrating 4 mg PO Q6H PRN 10/06/21 10/06/21 History tablet pantoprazole 40 mg tablet,delayed 40 mg PO QDL 10/06/21 10/06/21 History release polyethylene glycol 3350 17 17 g PO QDL PRN 10/06/21 10/06/21 History gram/dose oral powder (Miralax) sennosides 8.6 mg-docusate sodium 1 tab-cap PO QDL PRN 10/06/21 10/06/21 History 50 mg tablet (Senokot-S) tramadol 50 mg tablet 50 mg PO Q12H PRN 10/06/21 10/06/21 History Allergies Allergy/AdvReac Type Severity Reaction Status Date / Time amoxicillin Allergy Intermediate SEVERE Verified 10/06/21 15:17 RHEUMATOID ARTHRITIC SYMPTOMS clavulanic acid Allergy Intermediate SEVERE Verified 10/06/21 15:17 RHEUMATOID ARTHRITIC SYMPTOMS iodine Allergy Intermediate Stage 1V Verified 10/06/21 15:17 kidney disease lactose Allergy Intermediate Gastrointestinal Verified 10/06/21 15:17 Upset auranofin [From Ridaura] Allergy Mild Rash Verified 09/27/21 13:40 infliximab [From Remicade] Allergy Mild Rash Verified 10/06/21 15:17 Penicillins Allergy Unknown ON MED LIST Verified 10/06/21 15:17 Sulfa (Sulfonamide AdvReac Intermediate "give me Verified 10/06/21 15:17 Antibiotics) anxiety" Past Med/Surg History Medical History (Updated 10/06/21 @ 19:48 by Elizabeth Rodriguez MD) Acute kidney injury Anemia Arm pain, right Bilateral sacroiliitis Choledocholithiasis Chronic hyponatremia Chronic kidney disease (CKD), stage III (moderate) Constipation Hypertension Intractable nausea and vomiting Nausea Piriformis syndrome Right hamstring muscle strain Skin tear of lower leg without complication 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 and A total of 10 systems reviewed and were otherwise negative Physical Exam Vital Signs Vital Signs - 24 hr 10/06/21 15:03 10/06/21 16:38 10/06/21 17:34 Temperature 37.4 C 37.1 C Temperature Source Oral Oral Pulse Rate 78 78 Pulse Rate [Right Finger] 54 L Respiratory Rate 16 20 20 Respiratory Effort / Characteristics Non-Labored Respiratory Depth Normal Blood Pressure 99/62 L 115/55 L Blood Pressure [Right Arm] 105/54 L Blood Pressure Mean 74 75 Blood Pressure Mean [Right Arm] 71 Blood Pressure Position Lying Pulse Oximetry 98 97 98 Oxygen Delivery Method Room Air Room Air Sepsis Recent Fever Within 48 Hours No Sepsis New/Unexplained Change in Mental Status N/A Sepsis Action Taken by Nursing No Action Required 10/06/21 17:55 10/06/21 18:10 Temperature 37.0 C 37.0 C Temperature Source Oral Oral Pulse Rate 78 76 Pulse Rate [Right Finger] Respiratory Rate 20 20 Respiratory Effort / Characteristics Respiratory Depth Blood Pressure 113/62 119/62 Blood Pressure [Right Arm] Blood Pressure Mean 79 81 Blood Pressure Mean [Right Arm] Blood Pressure Position Lying Pulse Oximetry 99 97 Oxygen Delivery Method Sepsis Recent Fever Within 48 Hours Sepsis New/Unexplained Change in Mental Status Sepsis Action Taken by Nursing Constitutional: Vital signs reviewed. Eyes: Pupils are equal round reactive to light. Conjunctiva are noninjected. ENT: Pharynx is clear without erythema or exudate. Mucous membranes are moist. Neck supple without meningeal signs. Respiratory: Clear to auscultation bilaterally. Breath sounds are equal bilaterally. Cardiovascular: Regular rate and rhythm. No rubs or gallops. GI: Soft, nondistended and nontender. Bowel sounds are present. Rectal: Guaiac positive light brown stool. Musculoskeletal: Small skin lesion to the left lateral upper calf with some mild weeping. No surrounding cellulitis. Small lesion to the right leg as well with some mild weeping and no cellulitis. Integumentary: No cyanosis. or jaundice. Neurological: The patient is awake and alert. Weakness in both legs. Psychiatric: Normal affect. Not anxious appearing. Course Administered Medications Discontinued Medications Calcium Carbonate (Calcium Carbonate 1,250 Mg/5 Ml Udc) 1,250 mg PO NOW STA Stop: 10/06/21 17:02 Last Admin: 10/06/21 17:44 Dose: 1,250 mg Documented by: [id number] Dextrose (Dextrose 50% 50 Ml Syringe) 25 ml IV NOW ONE Stop: 10/06/21 17:02 Last Admin: 10/06/21 17:14 Dose: 25 ml Documented by: [id number] Pantoprazole Sodium 40 mg/ (Dextrose) 100 mls @ 20 mls/hr IV Q5H TYREE Stop: 10/06/21 19:44 Last Admin: 10/06/21 16:41 Dose: 8 mg/hr, 20 mls/hr Documented by: [id number] Pantoprazole Sodium 40 mg/ (Syringe) 10 mls @ 5 mls/min IV NOW ONE Stop: 10/06/21 14:45 Last Admin: 10/06/21 16:41 Dose: 5 mls/min Documented by: [id number] Insulin Human Regular (Novolin-R Insulin Per Unit Charge) 4 units IV NOW STA Stop: 10/06/21 17:02 Last Admin: 10/06/21 17:14 Dose: 4 units Documented by: [id number] Cosigned by: [id number] Critical Care Time Critical Care Time: Yes Total Critical Care Time: 40 I have personally spent approximately 40 minutes of critical care time in the direct management of this patient. This includes bedside care, interpretation of diagnostic studies, and testing, discussion with consultants, patient, and family members, and other required patient management activities. These minutes are in excess of all separately billable procedures. Medical Decision Making Differential Diagnosis GI bleed, gastritis, anemia, COVID-19, pneumonia Medical Records Attestation: I reviewed the patient's medical records. I did perform a limited focused review of portions of the patient's old chart on the electronic medical record. The patient was admitted to the hospital late August for NSTEMI. She had a stent placed. She has cardiomyopathy as well as CHF. She also had significant anemia and had to be transfused 2 units packed RBCs. She had melanotic stools which prompted a EGD. This demonstrated gastritis. She was discharged to [facility]. Home Medications Current Medication List: was personally reviewed by me Laboratory Data Attestation: I reviewed the patient's lab results. Result diagrams: 10/06/21 16:14 10/06/21 16:14 Lab Results 10/06/21 10/06/21 10/06/21 Range/Units 15:20 16:14 16:14 WBC 10.48 (4.8-10.8) K/uL RBC 2.22 L (4.2-5.4) M/uL Hgb 6.5 L* (12.0-16.0) g/dL Hct 20.7 L* (37-47) % MCV 93.2 (80-100) fL MCH 29.3 (25-34) pg MCHC 31.4 L (32-36) g/dL RDW Std Deviation 61.5 H (36.4-46.3) fL RDW Coeff of Sue 18.2 H (11.5-14.5) % Plt Count 278 (130-400) K/uL MPV 9.1 (7.4-10.4) fL Immature Gran % (Auto) 0.6 % Neut % (Auto) 88.0 % Lymph % (Auto) 5.9 % [place] % (Auto) 5.0 % Eos % (Auto) 0.4 % Baso % (Auto) 0.1 % Neut # (Auto) 9.23 H (1.4-6.5) K/uL Lymph # (Auto) 0.62 L (1.2-3.4) K/uL [place] # (Auto) 0.52 (0.11-0.59) K/uL Eos # (Auto) 0.04 (0-0.5) K/uL Baso # (Auto) 0.01 (0-0.2) K/uL Immature Gran # (Auto) 0.06 H (0.00-0.02) K/uL Polychromasia 1+ Anisocytosis Present Echinocytes 1+ PT (9.0-12.0) Seconds INR (0.9-1.1) APTT (21.0-31.0) Seconds PTT Ratio Sodium (136-145) mmol/L Potassium (3.5-5.1) mmol/L Chloride (98-107) mmol/L Carbon Dioxide (21-32) mmol/L Anion Gap (3-11) BUN (7-18) mg/dl Creatinine (0.6-1.2) mg/dl Est Cr Clr Drug Dosing Est GFR ( Amer) ml/min Est GFR (Non-Af Amer) ml/min BUN/Creatinine Ratio (10-20) Glucose (70-99) mg/dl Calcium (8.5-10.1) mg/dl Total Bilirubin (0.2-1) mg/dl AST (15-37) U/L ALT (12-78) U/L Alkaline Phosphatase (45-117) U/L Troponin I (0-0.045) ng/ml C-Reactive Protein (0-0.29) mg/dl Total Protein (6.4-8.2) gm/dl Albumin (3.4-5.0) gm/dl Globulin (2.5-4.0) gm/dl Albumin/Globulin Ratio (0.9-2) Procalcitonin (0-0.5) ng/ml SARS-CoV-2 (PCR) POSITIVE A* (Negative) Blood Type A Positive Antibody Screen NEGATIVE Crossmatch See Detail 10/06/21 10/06/21 10/06/21 Range/Units 16:14 16:14 16:14 WBC (4.8-10.8) K/uL RBC (4.2-5.4) M/uL Hgb (12.0-16.0) g/dL Hct (37-47) % MCV (80-100) fL MCH (25-34) pg MCHC (32-36) g/dL RDW Std Deviation (36.4-46.3) fL RDW Coeff of Sue (11.5-14.5) % Plt Count (130-400) K/uL MPV (7.4-10.4) fL Immature Gran % (Auto) % Neut % (Auto) % Lymph % (Auto) % [place] % (Auto) % Eos % (Auto) % Baso % (Auto) % Neut # (Auto) (1.4-6.5) K/uL Lymph # (Auto) (1.2-3.4) K/uL [place] # (Auto) (0.11-0.59) K/uL Eos # (Auto) (0-0.5) K/uL Baso # (Auto) (0-0.2) K/uL Immature Gran # (Auto) (0.00-0.02) K/uL Polychromasia Anisocytosis Echinocytes PT 10.0 (9.0-12.0) Seconds INR 1.0 (0.9-1.1) APTT 27.0 (21.0-31.0) Seconds PTT Ratio 1.0 Sodium 135 L (136-145) mmol/L Potassium 5.5 H (3.5-5.1) mmol/L Chloride 109 H (98-107) mmol/L Carbon Dioxide 15 L (21-32) mmol/L Anion Gap 11.0 (3-11) BUN 66 H (7-18) mg/dl Creatinine 1.92 H (0.6-1.2) mg/dl Est Cr Clr Drug Dosing Not Reportable Est GFR ( Amer) 29.2 ml/min Est GFR (Non-Af Amer) 25.2 ml/min BUN/Creatinine Ratio 34.5 H (10-20) Glucose 105 H (70-99) mg/dl Calcium 7.0 L (8.5-10.1) mg/dl Total Bilirubin 0.7 (0.2-1) mg/dl AST 156 H (15-37) U/L ALT 106 H (12-78) U/L Alkaline Phosphatase 87 (45-117) U/L Troponin I 0.239 H* (0-0.045) ng/ml C-Reactive Protein 5.21 H (0-0.29) mg/dl Total Protein 4.7 L (6.4-8.2) gm/dl Albumin 1.5 L (3.4-5.0) gm/dl Globulin 3.2 (2.5-4.0) gm/dl Albumin/Globulin Ratio 0.5 L (0.9-2) Procalcitonin (0-0.5) ng/ml SARS-CoV-2 (PCR) (Negative) Blood Type Antibody Screen Crossmatch 10/06/21 Range/Units 16:14 WBC (4.8-10.8) K/uL RBC (4.2-5.4) M/uL Hgb (12.0-16.0) g/dL Hct (37-47) % MCV (80-100) fL MCH (25-34) pg MCHC (32-36) g/dL RDW Std Deviation (36.4-46.3) fL RDW Coeff of Sue (11.5-14.5) % Plt Count (130-400) K/uL MPV (7.4-10.4) fL Immature Gran % (Auto) % Neut % (Auto) % Lymph % (Auto) % [place] % (Auto) % Eos % (Auto) % Baso % (Auto) % Neut # (Auto) (1.4-6.5) K/uL Lymph # (Auto) (1.2-3.4) K/uL [place] # (Auto) (0.11-0.59) K/uL Eos # (Auto) (0-0.5) K/uL Baso # (Auto) (0-0.2) K/uL Immature Gran # (Auto) (0.00-0.02) K/uL Polychromasia Anisocytosis Echinocytes PT (9.0-12.0) Seconds INR (0.9-1.1) APTT (21.0-31.0) Seconds PTT Ratio Sodium (136-145) mmol/L Potassium (3.5-5.1) mmol/L Chloride (98-107) mmol/L Carbon Dioxide (21-32) mmol/L Anion Gap (3-11) BUN (7-18) mg/dl Creatinine (0.6-1.2) mg/dl Est Cr Clr Drug Dosing Est GFR ( Amer) ml/min Est GFR (Non-Af Amer) ml/min BUN/Creatinine Ratio (10-20) Glucose (70-99) mg/dl Calcium (8.5-10.1) mg/dl Total Bilirubin (0.2-1) mg/dl AST (15-37) U/L ALT (12-78) U/L Alkaline Phosphatase (45-117) U/L Troponin I (0-0.045) ng/ml C-Reactive Protein (0-0.29) mg/dl Total Protein (6.4-8.2) gm/dl Albumin (3.4-5.0) gm/dl Globulin (2.5-4.0) gm/dl Albumin/Globulin Ratio (0.9-2) Procalcitonin 0.44 (0-0.5) ng/ml SARS-CoV-2 (PCR) (Negative) Blood Type Antibody Screen Crossmatch Imaging Data Radiologist's Impression: Chest X-Ray 10/06/21 14:44 XR chest 1V portable HISTORY: 75 years-old Female cough eval for pna acute cough COMPARISON: Chest radiograph 09/05/2021 TECHNIQUE: Semierect AP view of the chest FINDINGS: Cardiac silhouette is enlarged. Coronary arterial stent. Numerous electronic battery pack device is overlying the chest which limits the study. Trace right and small left pleural effusions with left basilar consolidation redemonstrated. Mild pulmonary vascular congestion. No pneumothorax. Hiatal hernia. Degenerative changes of the shoulders and spine. IMPRESSION: 1. Cardiomegaly with pulmonary vascular congestion. 2. Trace right and small left pleural effusions with persistent left basilar consolidation suggestive of atelectasis versus pneumonia. 3. Hiatal hernia. ACT 112: Negative or not required by law. The above report was generated using voice recognition software. It may contain grammatical, syntax or spelling errors. Electronically signed by: Prashant Fernandez M.D. 10/06/2021 4:42 PM ECG Data Attestation: I personally reviewed and interpreted this ECG as follows: Indication: + other (GI bleed) Rate (beats per minute): 72 Rhythm: + normal sinus ECG [place]: + Normal ECG ST segments: + T-wave inversions and + Nonspecific ST abnormalities ECG Findings: no PVCs Comparison ECG Date: from (September 03 2021) Change: the following changes noted (ST elevations in 1 and aVL are no longer present. ST depression in lead III is no longer present. T wave inversions in 1 and aVL are persistent) MDM Narrative I did evaluate the patient as noted above. The patient is sent here for a hemoglobin of 7. She is guaiac positive. She had an EGD during her previous hospitalization when she had an NSTEMI. The EGD showed gastritis. She had been transfused 2 units on prior admission. IV access was established. I did place an order for continuous cardiac monitoring. The monitor showed normal sinus rhythm at a rate of 72 bpm. I did order and personally review the patient's 12- lead EKG as described above. She has no acute ischemic changes. ST elevations and depressions from her prior EKG have resolved. I did order and personally reviewed the images of the patient's chest x-ray as described above. She does have infiltrate in the left lower lobe which was present on her previous chest x-ray. I did order and review the patient's blood work as noted in the electronic medical record. White count is 10.48. Hemoglobin is 6.5. Platelet count is 278. I did obtain informed consent for blood transfusion. I did order 2 units of packed RBCs to be transfused in the ED. coags are unremarkable. Electrolytes demonstrate a sodium 135 potassium of 5.5 chloride of 109 carbon dioxide of 15 with a BUN and creatinine of 66 and 192. Calcium is 7. I did treat the patient with IV glucose and insulin for her hyperkalemia. Her creatinine is at baseline. I did order oral calcium for her hypocalcemia which she has had in the past. Her troponin is 0.239. She denies having any chest pain or shortness of breath. She has no signs of acute ischemia on twelve-lead EKG. Her AST and ALT are bumped as well. Her transfusion was started here in the emergency department. I did discuss the test results with her. I did discuss case with the hospitalist and telehealth case manager. Impression & Plan Acute GI bleeding, CKD (chronic kidney disease), Anemia due to blood loss, acute, Hypocalcemia, Acute hyperkalemia, Abnormal LFTs, Elevated troponin, COVID-19 Discharge Plan Visit Data Chief Complaint: Illness ED Provider: Ariel Monroe Discharge Problem: Acute GI bleeding, CKD (chronic kidney disease), Anemia due to blood loss, acute, Hypocalcemia, Acute hyperkalemia, Abnormal LFTs, Elevated troponin, COVID-19 Patient Disposition: Being Evaluated by Hospitalist Discharge Problem: CKD (chronic kidney disease) Qualifiers: Chronic kidney disease stage: unspecified stage Qualified Code(s): N18.9 - Chronic kidney disease, unspecified
[2021-10-06] MEDS ORDERED: PANTOprazole 40 MG in DEXTROSE 5% 100 ML IV SCH (14:45)
--- NOTE | 2021-10-06 16:43 | XRay Report ---
XR chest 1V portable HISTORY: 75 years-old Female cough eval for pna acute cough COMPARISON: Chest radiograph 09/05/2021 TECHNIQUE: Semierect AP view of the chest FINDINGS: Cardiac silhouette is enlarged. Coronary arterial stent. Numerous electronic battery pack device is o verlying the chest which limits the study. Trace right and small left pleural effusions with left bas ilar consolidation redemonstrated. Mild pulmonary vascular congestion. No pneumothorax. Hiatal hernia . Degenerative changes of the shoulders and spine. IMPRESSION: 1. Cardiomegaly with pulmonary vascular congestion. 2. Trace right and small left pleural effusions with persistent left basilar consolidation suggestive of atelectasis versus pneumonia. 3. Hiatal hernia. ACT 112: Negative or not required by law. The above report was generated using voice recognition software. It may contain grammatical, syntax o r spelling errors. Electronically signed by: Prashant Fernandez M.D. 10/06/2021 4:42 PM
[2021-10-06 16:50] LABS: Alanine Aminotransferase 106 U/L (12-78); Albumin Level 1.5 gm/dl (3.4-5.0); Aspartate Aminotransferase 156 U/L (15-37); BUN Creatinine Ratio 34.5 (10-20); Blood Urea Nitrogen 66 mg/dl (7-18); Carbon Dioxide 15 mmol/L (21-32); Chloride 109 mmol/L (98-107); Est GFR (African American) 29.2 ml/min; Est GFR (Non-African American) 25.2 ml/min; Glucose 105 mg/dl (70-99); Potassium 5.5 mmol/L (3.5-5.1); Sodium 135 mmol/L (136-145)
[2021-10-06] MEDS ORDERED: DEXTROSE 50% 50 ML SYRINGE IV ONE (17:01)
[2021-10-06] MEDS ORDERED: NovoLIN-R INSULIN PER UNIT CHARGE IV STA (17:01)
[2021-10-06] MEDS ORDERED: CALCIUM CARBONATE 1,250 MG/5 ML UDC PO STA (17:01)
[2021-10-06 17:03] LABS: Albumin Globulin Ratio 0.5 (0.9-2); Alkaline Phosphatase 87 U/L (45-117); Bilirubin,Total 0.7 mg/dl (0.2-1); Globulin 3.2 gm/dl (2.5-4.0); Total Protein 4.7 gm/dl (6.4-8.2); Troponin I 0.239 ng/ml (0-0.045)
[2021-10-06 17:18] LABS: Hematocrit (blood only) 20.7 % (37-47); Hemoglobin 6.5 g/dL (12.0-16.0); Mean Corpuscular Hemoglobin 29.3 pg (25-34); Mean Corpuscular Hgb Conc 31.4 g/dL (32-36); Mean Corpuscular Volume 93.2 fL (80-100); Mean Platelet Volume 9.1 fL (7.4-10.4); Platelet Count 278 K/uL (130-400); RDW Coefficient of Variation 18.2 % (11.5-14.5); RDW Standard Deviation 61.5 fL (36.4-46.3); Red Blood Count 2.22 M/uL (4.2-5.4); White Blood Count 10.48 K/uL (4.8-10.8)
[2021-10-06 17:23] LABS: Anisocytosis Present; Basophils # (auto) 0.01 K/uL (0-0.2); Basophils % (auto) 0.1 %; Echinocytes 1+; Eosinophils # (auto) 0.04 K/uL (0-0.5); Eosinophils % (auto) 0.4 %; Immature Granulocytes # (auto) 0.06 K/uL (0.00-0.02); Immature Granulocytes % (auto) 0.6 %; Lymphocytes # (auto) 0.62 K/uL (1.2-3.4); Lymphocytes % (auto) 5.9 %; Monocytes # (auto) 0.52 K/uL (0.11-0.59); Neutrophils # (auto) 9.23 K/uL (1.4-6.5); Polychromasia 1+
--- NOTE | 2021-10-06 17:43 | History & Physical Report ---
Date of Service October 06, 2021 History of Present Illness Primary Care Provider: Francisco Velez DO Angelika Herrera is a 75 year old Allergies Allergy/AdvReac Type Severity Reaction Status Date / Time amoxicillin Allergy Intermediate SEVERE Verified 10/06/21 15:17 RHEUMATOID ARTHRITIC SYMPTOMS clavulanic acid Allergy Intermediate SEVERE Verified 10/06/21 15:17 RHEUMATOID ARTHRITIC SYMPTOMS iodine Allergy Intermediate Stage 1V Verified 10/06/21 15:17 kidney disease lactose Allergy Intermediate Gastrointestinal Verified 10/06/21 15:17 Upset auranofin [From Ridaura] Allergy Mild Rash Verified 09/27/21 13:40 infliximab [From Remicade] Allergy Mild Rash Verified 10/06/21 15:17 gabapentin Allergy Unknown ON MED LIST Verified 10/06/21 15:17 Penicillins Allergy Unknown ON MED LIST Verified 10/06/21 15:17 Sulfa (Sulfonamide AdvReac Intermediate "give me Verified 10/06/21 15:17 Antibiotics) anxiety" Home Medications Medication Instructions Recorded Confirmed Type ascorbate calcium (vitamin C) 500 500 mg PO QAM 02/15/19 10/06/21 History mg tablet cyanocobalamin (vitamin B-12) 1,000 mcg PO QAM 02/15/19 10/06/21 History 1,000 mcg capsule ursodiol 300 mg capsule 300 mg PO BID 02/15/19 10/06/21 History biotin 5,000 mcg sublingual tablet 5,000 mcg SL QAM 05/29/19 10/06/21 History methylprednisolone 4 mg tablet See Rx Instructions .ROUTE 05/21/20 10/06/21 History .COMPLEX tab hydroxychloroquine 200 mg tablet 200 mg PO QAM tab 11/16/20 10/06/21 History (Plaquenil) gentamicin sulfate (PF) 60 mg/6 mL 60 mg INHALATION UD PRN #45 ml 12/02/20 10/06/21 Rx intravenous solution albuterol sulfate 90 mcg/actuation 2 puff INH Q4H PRN #8.5 g 07/01/21 10/06/21 Rx aerosol inhaler (Ventolin HFA) diclofenac sodium 1 % topical gel 2 g TOPICAL QID PRN 09/02/21 10/06/21 History (Voltaren Arthritis Pain) atorvastatin 40 mg tablet 80 mg PO QAM #30 tab 09/14/21 10/06/21 Rx clopidogrel 75 mg tablet 75 mg PO QAM #30 tab 09/14/21 10/06/21 Rx psyllium husk 0.52 gram capsule 0.52 g PO BIDM 09/17/21 10/06/21 History (Metamucil) sodium chloride 1 gram tablet 1,000 mg PO DAILY tab 10/04/21 10/06/21 History acetaminophen 325 mg tablet 650 mg PO Q4H PRN 10/06/21 10/06/21 History (Tylenol) bisacodyl 10 mg rectal suppository 10 mg ME DAILY PRN 10/06/21 10/06/21 History carvedilol 12.5 mg tablet 12.5 mg PO BIDM 10/06/21 10/06/21 History dextromethorphan-guaifenesin 30 1 tab PO BID 10/06/21 10/06/21 History mg-600 mg tablet extended [id number] hr (Mucinex DM) docusate sodium 100 mg capsule 100 mg PO BID 10/06/21 10/06/21 History ferrous sulfate 325 mg (65 mg 325 mg PO BIDM 10/06/21 10/06/21 History iron) tablet fluticasone furoate 200 1 inh INHALATION DAILY 10/06/21 10/06/21 History mcg-vilanterol 25 mcg/dose inhalation powder (Breo Ellipta) gabapentin 100 mg capsule 200 mg PO HS 10/06/21 10/06/21 History levothyroxine 100 mcg tablet 100 mcg PO DAILYBB 10/06/21 10/06/21 History loperamide 2 mg tablet (Imodium 2 mg PO Q4H PRN 10/06/21 10/06/21 History A-D) magnesium hydroxide 400 mg/5 mL 30 ml PO DAILY PRN 10/06/21 10/06/21 History oral suspension (Milk of Magnesia) ondansetron 4 mg disintegrating 4 mg PO Q6H PRN 10/06/21 10/06/21 History tablet pantoprazole 40 mg tablet,delayed 40 mg PO QDL 10/06/21 10/06/21 History release polyethylene glycol 3350 17 17 g PO QDL PRN 10/06/21 10/06/21 History gram/dose oral powder (Miralax) sennosides 8.6 mg-docusate sodium 1 tab-cap PO QDL PRN 10/06/21 10/06/21 History 50 mg tablet (Senokot-S) tramadol 50 mg tablet 50 mg PO Q12H PRN 10/06/21 10/06/21 History Past Med/Surg History Medical History Acute kidney injury Anemia Choledocholithiasis Chronic hyponatremia Chronic kidney disease (CKD), stage III (moderate) Hypertension Intractable nausea and vomiting Skin tear of lower leg without complication 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 Russ Brambila S/P [facility] Family History Aunt Breast cancer Father Myocardial infarction Family history of diabetes mellitus Brother Family history of diabetes mellitus Brother Family history of diabetes mellitus Other No family history of adverse response to anesthesia Denies family history of Ovarian cancer Prostate cancer Colorectal cancer Social History Smoking Status: Never smoker Second Hand Exposure: No (parents smoked); Hx Alcohol Use: No Hx Substance Use: No Preferred Language: Citizen Of [place] Communication Ability: Effective Visual Impairment: No Limitations Hearing Ability: Normal 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 Beliefs That Will Affect Care: None marital status: Current Living Situation: Spouse Current Living Situation Comment: Lives with and son current occupational status: retired How many Children do You have: 1 Feels Safe at Home: Yes Childhood Exposure to Second-Hand Smoke: Yes caffeine: Yes Dental Care, Regularly: Yes Physical Activity Frequency: 3-4 Times per Week Seatbelt Use: always Sunscreen Use: Yes Assistive Devices: Glasses and Walker Results & Data Results & Data ([facility]) Vital Signs (Past 12 Hours) Vital Signs Temp Pulse Pulse Resp BP BP Pulse Ox 10/06/21 17:34 37.1 C 78 20 115/55 L 98 10/06/21 16:38 54 L 20 105/54 L 97 10/06/21 15:03 37.4 C 78 16 99/62 L 98 PG Care Time/CCT Total # of Minutes Spent Total Time Spent with Patient: Total time spent is greater than 50% in coordination of care (as documented) at patient's floor/unit and/or counseling patient: Coding
--- NOTE | 2021-10-06 18:30 | History & Physical Report ---
Date of Service October 06, 2021 Assessment & Plan (1) Acute GI bleeding: Plan: 75 yo medically complex F with Rheumatoid arthritis, ischemic cardiomyopathy with recent PCI, gastritis, CKD 3 admitted to the hospital for management of anemia and transfusion. Chronic? GIB - hx melena, GIB during last hospitalization, received 2u pRBCs - Hg ordered by Verito Baxter on 10/04, returned on 10/05 down to 7.2 from 12.0 in 22 days - was receiving heparin sq for VTE ppx at [facility]. discharged on pantoprazole 40 mg daily - no melena/obvious bleeding. bruises throughout under thin skin - hold anticoagulation, receiving 1u pRBC right now. Midnight CBC recheck, follow Q6H - oxygen PRN - EGD from 09/08 showed diffuse mild inflammation characterized by congestion, erythema, granularity - continue anti-platelet agents in setting of recent PCI - PPI drip, clear liquid diet, - most likely slow ooze worsened by chemical anticoagulation, defer GI consult at this time. HFrEF due to Ischemic Cardiomyopathy s/p PCI to D1, LAD, not in exacerbation - elevated trop of 0.239 in ER, no chest pain, significantly lower than at end of last admission - repeat trops to trend - EF 25-30% last month - peripheral edema, chronic. No new oxygen requirement - 1500 ml fluid restriction - chest vest in place - holding spironolactone given mild hyperkalemia as below - cont carvedilol, plavix, asa, Electrolyte Derangements - Na 135, improved from prior - holding 1g NaCl tabs in setting of near normal sodium and low EF - K 5.5, received insulin, D50, calcium gluconate x 1, - holding spironolactone as above - previously on lasix? per chart review. COVID19 + - positive PCR 10/06 - mild cough, no hypoxia, - no indication for steroids/remdesivir/aggressive treatment at this time - vaccinated x2 in January 2021 - trend CRP, WBC CKD 3b - monitor I/O, daily BMP - avoid nephrotoxic agents - Cr improved to 1.92 from baseline ~2 Rheumatoid arthritis: - Pt has immune suppressing medications, Plaquenil, tofacitinib - no acute flare at this time - has been concerened about significant weakness and trouble moving legs however states this has been ongoing since discharge of last hospital admission Hypothyroidism: - TSH WNL - Remains on levothyroxine 100mcg PO daily Asthma: No exacerbation Continue maintenance inhaler with symbicort or hospital formulary equivalent (9) Osteoporosis: (10) Disc degeneration, lumbar: - tramadol PRN Q12h per home regimen DVT ppx: CI in GIB FEN/GI: clear liquid Bowel regimen: scheduled and prn miralax/senna/docusate Code Status: Full Code. 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 Dispo: med/Tele (2) Elevated troponin: (3) COVID-19: (4) Chronic hyponatremia: (5) Ischemic cardiomyopathy: (6) CKD (chronic kidney disease): (7) CAD (coronary artery disease): (8) Hypertension: (9) Dyslipidemia: (10) Asthma: (11) Acute hyperkalemia: (12) Rheumatoid arthritis: (13) Hypothyroidism: (14) Gastritis: History of Present Illness Primary Care Provider: Francisco Velez, DO 75 yo F with PMH significant for ischemic cardiomyopathy EF 25-30% s/p PCI of D1 and LAD on 09/02/21, RA, gastritis, CKD3B, chronic hyponatremia who presents to ER from [facility] for abnormal labs. She states that after getting discharged from the hospital she's been very fatigued, and having great difficulty moving her legs despite participating in physical therapy as much as she can. She started having a mild nighttime cough a few days ago. She denies any orthopnea, SOB. She is dyspneic on exertion but is limited in physical capabilities due to previously mentioned deconditioning. No fevers, chills, night sweats. Unsure of any sick contacts, no visitors currently allowed at [facility]. CBC ordered by heart failure team - Hg 7.2 yesterday at [facility] per patient, 7.0 today, which prompted them to send her to the hospital. She was also started on a decadron PO pack yesterday for a cough. Allergies Allergy/AdvReac Type Severity Reaction Status Date / Time amoxicillin Allergy Intermediate SEVERE Verified 10/06/21 15:17 RHEUMATOID ARTHRITIC SYMPTOMS clavulanic acid Allergy Intermediate SEVERE Verified 10/06/21 15:17 RHEUMATOID ARTHRITIC SYMPTOMS iodine Allergy Intermediate Stage 1V Verified 10/06/21 15:17 kidney disease lactose Allergy Intermediate Gastrointestinal Verified 10/06/21 15:17 Upset auranofin [From Ridaura] Allergy Mild Rash Verified 09/27/21 13:40 infliximab [From Remicade] Allergy Mild Rash Verified 10/06/21 15:17 Penicillins Allergy Unknown ON MED LIST Verified 10/06/21 15:17 Sulfa (Sulfonamide AdvReac Intermediate "give me Verified 10/06/21 15:17 Antibiotics) anxiety" Home Medications Medication Instructions Recorded Confirmed Type ascorbate calcium (vitamin C) 500 500 mg PO QAM 02/15/19 10/06/21 History mg tablet cyanocobalamin (vitamin B-12) 1,000 mcg PO QAM 02/15/19 10/06/21 History 1,000 mcg capsule ursodiol 300 mg capsule 300 mg PO BID 02/15/19 10/06/21 History biotin 5,000 mcg sublingual tablet 5,000 mcg SL QAM 05/29/19 10/06/21 History methylprednisolone 4 mg tablet See Rx Instructions .ROUTE 05/21/20 10/06/21 History .COMPLEX tab hydroxychloroquine 200 mg tablet 200 mg PO QAM tab 11/16/20 10/06/21 History (Plaquenil) gentamicin sulfate (PF) 60 mg/6 mL 60 mg INHALATION UD PRN #45 ml 12/02/20 10/06/21 Rx intravenous solution albuterol sulfate 90 mcg/actuation 2 puff INH Q4H PRN #8.5 g 07/01/21 10/06/21 Rx aerosol inhaler (Ventolin HFA) diclofenac sodium 1 % topical gel 2 g TOPICAL QID PRN 09/02/21 10/06/21 History (Voltaren Arthritis Pain) atorvastatin 40 mg tablet 80 mg PO QAM #30 tab 09/14/21 10/06/21 Rx clopidogrel 75 mg tablet 75 mg PO QAM #30 tab 09/14/21 10/06/21 Rx psyllium husk 0.52 gram capsule 0.52 g PO BIDM 09/17/21 10/06/21 History (Metamucil) sodium chloride 1 gram tablet 1,000 mg PO DAILY tab 10/04/21 10/06/21 History acetaminophen 325 mg tablet 650 mg PO Q4H PRN 10/06/21 10/06/21 History (Tylenol) bisacodyl 10 mg rectal suppository 10 mg HI DAILY PRN 10/06/21 10/06/21 History carvedilol 12.5 mg tablet 12.5 mg PO BIDM 10/06/21 10/06/21 History dextromethorphan-guaifenesin 30 1 tab PO BID 10/06/21 10/06/21 History mg-600 mg tablet extended [id number] hr (Mucinex DM) docusate sodium 100 mg capsule 100 mg PO BID 10/06/21 10/06/21 History ferrous sulfate 325 mg (65 mg 325 mg PO BIDM 10/06/21 10/06/21 History iron) tablet fluticasone furoate 200 1 inh INHALATION DAILY 10/06/21 10/06/21 History mcg-vilanterol 25 mcg/dose inhalation powder (Breo Ellipta) gabapentin 100 mg capsule 200 mg PO HS 10/06/21 10/06/21 History levothyroxine 100 mcg tablet 100 mcg PO DAILYBB 10/06/21 10/06/21 History loperamide 2 mg tablet (Imodium 2 mg PO Q4H PRN 10/06/21 10/06/21 History A-D) magnesium hydroxide 400 mg/5 mL 30 ml PO DAILY PRN 10/06/21 10/06/21 History oral suspension (Milk of Magnesia) ondansetron 4 mg disintegrating 4 mg PO Q6H PRN 10/06/21 10/06/21 History tablet pantoprazole 40 mg tablet,delayed 40 mg PO QDL 10/06/21 10/06/21 History release polyethylene glycol 3350 17 17 g PO QDL PRN 10/06/21 10/06/21 History gram/dose oral powder (Miralax) sennosides 8.6 mg-docusate sodium 1 tab-cap PO QDL PRN 10/06/21 10/06/21 History 50 mg tablet (Senokot-S) tramadol 50 mg tablet 50 mg PO Q12H PRN 10/06/21 10/06/21 History Past Med/Surg History Medical History (Updated 10/08/21 @ 18:03 by Delroy Zapata MD) Acute kidney injury Anemia Arm pain, right Bilateral sacroiliitis Choledocholithiasis Chronic hyponatremia Chronic kidney disease (CKD), stage III (moderate) Constipation Hypertension Intractable nausea and vomiting Nausea Piriformis syndrome Right hamstring muscle strain Skin tear of lower leg without complication 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 Russ Brambila S/P [facility] Family History Aunt Breast cancer Father Myocardial infarction Family history of diabetes mellitus Brother Family history of diabetes mellitus Brother Family history of diabetes mellitus Other No family history of adverse response to anesthesia Denies family history of Ovarian cancer Prostate cancer Colorectal cancer Social History Smoking Status: Never smoker Second Hand Exposure: No; Do You Dip or Chew Tobacco: No; Hx Alcohol Use: No Hx Substance Use: No Preferred Language: [place]og[place] Communication Ability: Effective Visual Impairment: No Limitations Hearing Ability: Normal Colored Liquid Plastic Applier Required: No Beliefs That Will Affect Care: None marital status: Current Living Situation: Personal Care Facility Current Living Situation Comment: Lives with and son current occupational status: retired How many Children do You have: 1 Feels Safe at Home: Yes Safety Concerns: Feels Safe At This Time Childhood Exposure to Second-Hand Smoke: Yes caffeine: Yes Dental Care, Regularly: Yes Physical Activity Frequency: 3-4 Times per Week Seatbelt Use: always Sunscreen Use: Yes Assistive Devices: Cane and Glasses Review of Systems Constitutional: + fatigue and + weakness; no fever, no chills, no sweats and no body aches Respiratory: + cough and + dyspnea on exertion; no dyspnea and no pain on inspiration Cardiovascular: + edema; no chest pain, no dyspnea, no dyspnea at rest, no orthopnea, no paroxysmal nocturnal dyspnea and no lightheadedness Gastrointestinal: no abdominal pain, no nausea, no vomiting, no constipation and no diarrhea/loose stools Genitourinary: no dysuria, no urinary frequency and no urinary hesitancy Musculoskeletal: + limited range of motion Integumentary: + wounds Neurologic: no tingling, no numbness, no dizziness and no confusion Physical Exam Physical Exam: Constitutional: elderly female in no apparent distress, sitting comfortably in bed. Eyes: EOMI, pupils equal and reactive bilaterally, no scleral icterus Cardiac: RRR, no murmurs gallops or rubs. Normal S1, S2. Chest Vest in place. Pulm: CTA BL, mild basilar crackling otherwise no focal wheezing/rhonchi, no distress of breathing or conversational dyspnea at room air Abd: soft, nontender, nondistended, normal bowel sounds, no rebound or guarding Extremities: unable to palpate peripheral pulses. 4+ pitting edema of feet bilaterally. Skin: significant healing bruises in various stages along arms, hands, shins. Wound on left leg actively seeping. Neuro: significant weakness of bilateral lower extremity proximal muscles. able to plantar and dorsiflex BL, able to move right leg at knee, unable to move left leg except extension of leg into bed. sensation intact. Results & Data Results & Data ([facility]) Vital Signs (Past 12 Hours) Vital Signs Temp Pulse Pulse Resp BP BP Pulse Ox 10/06/21 18:10 37.0 C 76 20 119/62 97 10/06/21 17:55 37.0 C 78 20 113/62 99 10/06/21 17:34 37.1 C 78 20 115/55 L 98 10/06/21 16:38 54 L 20 105/54 L 97 10/06/21 15:03 37.4 C 78 16 99/62 L 98 Laboratory Results Laboratory Results WBC 10.48 K/uL (4.8-10.8) 10/06/21 16:14 RBC 2.22 M/uL (4.2-5.4) L 10/06/21 16:14 Hgb 6.5 g/dL (12.0-16.0) L* 10/06/21 16:14 Hct 20.7 % (37-47) L* 10/06/21 16:14 MCV 93.2 fL (80-100) 10/06/21 16:14 MCH 29.3 pg (25-34) 10/06/21 16:14 MCHC 31.4 g/dL (32-36) L 10/06/21 16:14 RDW Std Deviation 61.5 fL (36.4-46.3) H 10/06/21 16:14 RDW Coeff of Sue 18.2 % (11.5-14.5) H 10/06/21 16:14 Plt Count 278 K/uL (130-400) 10/06/21 16:14 MPV 9.1 fL (7.4-10.4) 10/06/21 16:14 Immature Gran % (Auto) 0.6 % 10/06/21 16:14 Neut % (Auto) 88.0 % 10/06/21 16:14 Lymph % (Auto) 5.9 % 10/06/21 16:14 [place] % (Auto) 5.0 % 10/06/21 16:14 Eos % (Auto) 0.4 % 10/06/21 16:14 Baso % (Auto) 0.1 % 10/06/21 16:14 Neut # (Auto) 9.23 K/uL (1.4-6.5) H 10/06/21 16:14 Lymph # (Auto) 0.62 K/uL (1.2-3.4) L 10/06/21 16:14 [place] # (Auto) 0.52 K/uL (0.11-0.59) 10/06/21 16:14 Eos # (Auto) 0.04 K/uL (0-0.5) 10/06/21 16:14 Baso # (Auto) 0.01 K/uL (0-0.2) 10/06/21 16:14 Immature Gran # (Auto) 0.06 K/uL (0.00-0.02) H 10/06/21 16:14 Polychromasia 1+ 10/06/21 16:14 Anisocytosis Present 10/06/21 16:14 Echinocytes 1+ 10/06/21 16:14 PT 10.0 Seconds (9.0-12.0) 10/06/21 16:14 INR 1.0 (0.9-1.1) 10/06/21 16:14 APTT 27.0 Seconds (21.0-31.0) 10/06/21 16:14 PTT Ratio 1.0 10/06/21 16:14 Sodium 135 mmol/L (136-145) L 10/06/21 16:14 Potassium 5.5 mmol/L (3.5-5.1) H 10/06/21 16:14 Chloride 109 mmol/L (98-107) H 10/06/21 16:14 Carbon Dioxide 15 mmol/L (21-32) L 10/06/21 16:14 Anion Gap 11.0 (3-11) 10/06/21 16:14 BUN 66 mg/dl (7-18) H 10/06/21 16:14 Creatinine 1.92 mg/dl (0.6-1.2) H 10/06/21 16:14 Est Cr Clr Drug Dosing Not Reportable 10/06/21 16:14 Est GFR ( Amer) 29.2 ml/min 10/06/21 16:14 Est GFR (Non-Af Amer) 25.2 ml/min 10/06/21 16:14 BUN/Creatinine Ratio 34.5 (10-20) H 10/06/21 16:14 Glucose 105 mg/dl (70-99) H 10/06/21 16:14 Calcium 7.0 mg/dl (8.5-10.1) L 10/06/21 16:14 Total Bilirubin 0.7 mg/dl (0.2-1) 10/06/21 16:14 AST 156 U/L (15-37) H 10/06/21 16:14 ALT 106 U/L (12-78) H 10/06/21 16:14 Alkaline Phosphatase 87 U/L (45-117) 10/06/21 16:14 Troponin I 0.239 ng/ml (0-0.045) H* 10/06/21 16:14 C-Reactive Protein 5.21 mg/dl (0-0.29) H 10/06/21 16:14 Total Protein 4.7 gm/dl (6.4-8.2) L 10/06/21 16:14 Albumin 1.5 gm/dl (3.4-5.0) L 10/06/21 16:14 Globulin 3.2 gm/dl (2.5-4.0) 10/06/21 16:14 Albumin/Globulin Ratio 0.5 (0.9-2) L 10/06/21 16:14 SARS-CoV-2 (PCR) POSITIVE (Negative) A* 11/24/21 15:20 Blood Type A Positive 10/06/21 16:14 Antibody Screen NEGATIVE 10/06/21 16:14 Crossmatch See Detail 10/06/21 16:14 Impressions Chest X-Ray 10/06/21 14:44 XR chest 1V portable HISTORY: 75 years-old Female cough eval for pna acute cough COMPARISON: Chest radiograph 09/05/2021 TECHNIQUE: Semierect AP view of the chest FINDINGS: Cardiac silhouette is enlarged. Coronary arterial stent. Numerous electronic battery pack device is overlying the chest which limits the study. Trace right and small left pleural effusions with left basilar consolidation redemonstrated. Mild pulmonary vascular congestion. No pneumothorax. Hiatal hernia. Degenerative changes of the shoulders and spine. IMPRESSION: 1. Cardiomegaly with pulmonary vascular congestion. 2. Trace right and small left pleural effusions with persistent left basilar consolidation suggestive of atelectasis versus pneumonia. 3. Hiatal hernia. ACT 112: Negative or not required by law. The above report was generated using voice recognition software. It may contain grammatical, syntax or spelling errors. Electronically signed by: Prashant Fernandez M.D. 10/06/2021 4:42 PM Supervising Physician Co-Signing Physician Notes I personally saw and examined the patient. I verified all horvath points and agree with resident physician Dr Rodriguez with the following exceptions and/or additions: 75 year old female here with anemia and suspected GI bleed after recent NSTEMI last admission. She had a GI bleed on that admission with EGD showing gastritis. She was started on pantoprazole however this was not continued on discharge. O/E HS 1+2, RR, no murmurs, Chest - bibasal fine crackles, Pedal edema 2+ to knees equal b/l, bilateral ankles internally flexed however strength 5/5. A/P Acute GI bleed - Transfuse 2 units. Repeat CBC after this. Suspect slow GI bleed since last admission. CAD - recent NSTEMI, continue on dual antiplatelets, carvedilol, atorvastatin Generalized weakness - neck muscle weakness concerning for myasthenia and will send antibodies however suspect most likely secondary to her rheumatoid arthritis. Planning on start Humira as outpatient. Resident Activity Tracking Resident Involvement: Resident Care Provided Care Provided: Adult Hospital Medicine (1) CKD (chronic kidney disease) Chronic kidney disease stage: unspecified stage Qualified Code(s): N18.9 - Chronic kidney disease, unspecified
[2021-10-06] MEDS ORDERED: ALBUTEROL HFA 8 GM INHALER INH PRN (20:13)
[2021-10-06] MEDS ORDERED: NITROGLYCERIN SL 0.4 MG/TAB TAB SL PRN (20:13)
[2021-10-06] MEDS ORDERED: DOCUSATE SODIUM/SENNA 50/8.6MG TAB PO PRN (20:13)
[2021-10-06] MEDS ORDERED: bisacodyL 10 MG SUPP PR PRN (20:13)
[2021-10-06] MEDS ORDERED: DICLOFENAC SOD 1% GEL 100 GM TUBE EXT PRN (20:13)
[2021-10-07] MEDS: DOCUSATE SODIUM 100 MG CAP PO SCH ×3 (02:00→22:22)
[2021-10-07] MEDS: ursodioL 300 MG CAP PO SCH ×3 (02:00→22:20)
[2021-10-07] MEDS: PANTOprazole 40 MG in SYRINGE 0 ML IV SCH ×3 (02:00→22:26)
[2021-10-07] MEDS: guaiFENesin 600 MG TABCR PO SCH ×3 (02:00→22:21)
[2021-10-07 02:33] LABS: Hematocrit (blood only) 32.2 % (37-47); Hemoglobin 10.5 g/dL (12.0-16.0); Mean Corpuscular Hemoglobin 29.5 pg (25-34); Mean Corpuscular Hgb Conc 32.6 g/dL (32-36); Mean Corpuscular Volume 90.4 fL (80-100); Mean Platelet Volume 9.4 fL (7.4-10.4); Platelet Count 222 K/uL (130-400); RDW Coefficient of Variation 15.7 % (11.5-14.5); RDW Standard Deviation 51.9 fL (36.4-46.3); Red Blood Count 3.56 M/uL (4.2-5.4); White Blood Count 12.47 K/uL (4.8-10.8)
[2021-10-07 02:51] LABS: Basophils # (auto) 0.02 K/uL (0-0.2); Basophils % (auto) 0.2 %; Eosinophils # (auto) 0.12 K/uL (0-0.5); Immature Granulocytes # (auto) 0.18 K/uL (0.00-0.02); Immature Granulocytes % (auto) 1.4 %; Lymphocytes # (auto) 1.19 K/uL (1.2-3.4); Lymphocytes % (auto) 9.5 %; Neutrophils # (auto) 9.96 K/uL (1.4-6.5); Neutrophils % (auto) 79.9 %; Polychromasia 1+
[2021-10-07] MEDS: GABAPENTIN 100 MG CAP PO SCH ×2 (02:51→22:21)
[2021-10-07 06:58] LABS: Hematocrit (blood only) 29.3 % (37-47); Hemoglobin 9.8 g/dL (12.0-16.0); Mean Corpuscular Hemoglobin 30.2 pg (25-34); Mean Corpuscular Hgb Conc 33.4 g/dL (32-36); Mean Corpuscular Volume 90.4 fL (80-100); Platelet Count 244 K/uL (130-400); RDW Coefficient of Variation 15.9 % (11.5-14.5); RDW Standard Deviation 52.4 fL (36.4-46.3); Red Blood Count 3.24 M/uL (4.2-5.4); White Blood Count 9.87 K/uL (4.8-10.8)
--- NOTE | 2021-10-07 07:08 | Electrocardiogram Report ---
Test Reason : Blood Pressure : / mmHG Vent. Rate : 072 BPM Atrial Rate : 072 BPM P-R Int : 152 ms QRS Dur : 090 ms QT Int : 416 ms P-R-T Axes : 007 023 108 degrees QTc Int : 455 ms Normal sinus rhythm T wave abnormality, consider lateral ischemia Nonspecific T wave abnormality Abnormal ECG When compared with ECG of 04-SEP-2021 06:06, ST no longer depressed in Inferior leads ST less depressed in Anterior leads ST no longer elevated in Lateral leads T wave inversion no longer evident in Inferior leads Nonspecific T wave abnormality has replaced inverted T waves in Anterior leads Confirmed by Lauri Hinojosa ([id number]) on 10/07/2021 7:07:56 AM Referred By: REFERRED SELF Confirmed By:Lauri Hinojosa
[2021-10-07] MEDS: FERROUS SULFATE 325 MG TAB PO SCH ×2 (07:25→17:51)
[2021-10-07] MEDS: carvediloL 12.5 MG TAB PO SCH ×2 (07:25→17:51)
[2021-10-07] MEDS: PSYLLIUM 58.6% POWDER PACKET PO SCH ×2 (07:26→17:57)
[2021-10-07] MEDS: LEVOTHYROXINE SODIUM 100 MCG TABLET PO SCH (07:27)
[2021-10-07] MEDS: traMADol HCL 50 MG TABLET PO PRN ×2 (07:31→23:47)
[2021-10-07 07:32] LABS: Echinocytes 1+; Eosinophils # (auto) 0.26 K/uL (0-0.5); Eosinophils % (auto) 2.6 %; Immature Granulocytes # (auto) 0.09 K/uL (0.00-0.02); Immature Granulocytes % (auto) 0.9 %; Lymphocytes # (auto) 0.66 K/uL (1.2-3.4); Lymphocytes % (auto) 6.7 %; Monocytes % (auto) 6.1 %; Neutrophils # (auto) 8.26 K/uL (1.4-6.5); Neutrophils % (auto) 83.7 %
[2021-10-07 07:45] LABS: Alanine Aminotransferase 102 U/L (12-78); Albumin Globulin Ratio 0.5 (0.9-2); Albumin Level 1.6 gm/dl (3.4-5.0); Alkaline Phosphatase 93 U/L (45-117); Aspartate Aminotransferase 153 U/L (15-37); BUN Creatinine Ratio 34.9 (10-20); Bilirubin,Total 0.9 mg/dl (0.2-1); Blood Urea Nitrogen 64 mg/dl (7-18); Calcium 7.4 mg/dl (8.5-10.1); Carbon Dioxide 14 mmol/L (21-32); Chloride 108 mmol/L (98-107); Est GFR (African American) 30.8 ml/min; Est GFR (Non-African American) 26.5 ml/min; Globulin 3.3 gm/dl (2.5-4.0); Glucose 52 mg/dl (70-99); Potassium 4.5 mmol/L (3.5-5.1); Sodium 134 mmol/L (136-145); Total Protein 4.9 gm/dl (6.4-8.2); Troponin I 0.225 ng/ml (0-0.045)
[2021-10-07] MEDS ORDERED: GLUCOSE 40% GEL 15 GM TUBE PO PRN (09:05)
[2021-10-07] MEDS ORDERED: CARBOHYDRATES FOR HYPOGLYCEMIA PO PRN (09:05)
[2021-10-07] MEDS ORDERED: DEXTROSE 50% 50 ML SYRINGE IV PRN (09:05)
[2021-10-07] MEDS ORDERED: GLUCAGON FOR INJ 1 MG VIAL SQ PRN (09:05)
[2021-10-07] MEDS ORDERED: GLUCOSE 10 TABS/TUBE PO PRN (09:05)
[2021-10-07] MEDS: ATORVASTATIN 40 MG TAB PO SCH (09:33)
[2021-10-07] MEDS: CLOPIDOGREL BISULFATE 75 MG TAB PO SCH (09:34)
[2021-10-07] MEDS: FLUTICASONE/VILANTEROL 200/25MCG 14 PUFFS/INHALER INH SCH (09:35)
[2021-10-07] MEDS: SODIUM CHLORIDE 1 GM TABLET PO SCH (09:37)
[2021-10-07] MEDS: HYDROXYCHLOROQUINE SULFATE 200 MG TAB PO SCH (09:37)
[2021-10-07] MEDS ORDERED: PATIENT'S HEIGHT AND/OR WEIGHT NEEDED STA (11:17)
--- NOTE | 2021-10-07 11:28 | Hospitalist Progress Note ---
Date of Service October 07, 2021 Assessment & Plan (1) Acute GI bleeding: Plan: Patient with history of UGI bleed with Gastritis- recently had EGD 09/08 with diffuse mild inflammation characterized by congestion, erythema, granularity - HGB on admit was 6.5- received 2 units of PRBC and HGB stable at 9.8-10.2- - was receiving heparin sq for [facility] ppx [facility]. discharged on pantoprazole 40 mg daily- Discontinue VTE proplhylaxis heparin- no other chemical prophy - Continue Protonix 40mg IV BID- should remain on max oral therapy at discharge 40mg PO BID as she is also on fpc steroid therapy and DAPT - no melena/obvious bleeding. - EGD from 09/08 - continue anti-platelet agents in setting of recent PCI- appreciate cardiology consult and assistance - Advance diet today- (2) Abnormal LFTs: Plan: Likely secondary to COVID 19 - follow (3) Elevated troponin: Plan: Peak and trending down no dynamic ECG changes - Troponin I at 1200 today - Elevated secondary to demand from anemia and COVID illness (4) COVID-19: Plan: -positive PCR 10/06 - mild cough, no hypoxia, - not a candidate for steroids/remdesivir/aggressive treatment at this time - vaccinated x2 in January 2021 - trend CRP, WBC - Will hold on chemoprophylaxis as above (5) Chronic hyponatremia: Plan: Na 135, improved from prior - holding 1g NaCl tabs in setting of near normal sodium and low EF - 1500 ml fluid restriction (6) Hyperkalemia: Plan: - K 5.5, received insulin, D50, calcium gluconate x 1, - holding spironolactone as above - Diurese with 20mg IV lasix today for lower extremity edema - K stable at 5.2 (7) CAD (coronary artery disease): Plan: 09/14/21 underwent PCI D1 and LAD. There was concern for additional disease in RCA and Circ with possible staged PCI in the future. - Maintain medical optimization at this time - Appreciate cardiology assistance (8) Ischemic cardiomyopathy: Plan: ICM with HFrEF- no an acue exacerbation - EF 25-30% last month - peripheral edema, . 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 MG - TSH WNL - Remains on levothyroxine 100mcg PO daily - B12 and Folate ordered - Will start Thiamine 200mg IV daily - MG labs sent- although will take sometime to get these back - She does not endorse any other supplements like zinc - Could consider sending Copper level (13) Hypoglycemia: Plan: Patient was hypoglycemic this morning at 52- recheck was 72 - continue with dextrose sticks and hypoglycemic protocol- - This may have been from her treatment of hyperkalemia and clear diet as well - Will need to follow Admission and Anticipated Discharge Date Admission Date: October 06, 2021 Subjective Patient overall feels better today in terms of energy, she still voices concern that she has lower extremity weakness that she feels extends in to her abdominal muscles and at times feels that she can not lift her head up. She has RA and has been on steroids ~2011. Patient had received 2 units of PRBC secondary to presumed UGI loss while on DAPT for her most recent GA with 2 stents. Her HGB and HCT levlels have remained stable. She is a resident at [facility] where she is at rehab and appears to have been on Heparin for VTE prophylaxis there. THis will continue to be held, will re-initate her ASA therapy with Cardiology Consult to follow in regards to her UGI symptoms and continuing DAPT. If her blood counts drop again will perform GI consult. For her weakness in her legs- will send off B12 Folate, start on Thiamine as her nutritional status has decreased, as well as MG panel. If these return normal- Nuerology consult possible. She remains on Room air with her COVID 19 infection. Review of Systems Review of Systems: REVIEW OF SYSTEMS: Constitutional: No fever, sweats or chills Eyes: No diplopia, no worsening or blurred vision ENT: normal hearing, no trouble swallowing Respiratory: No cough, sputum, dyspnea at rest or on exertion Cardiovascular: No chest pain, tightness or palpitations Abdomen: No pain, nausea, vomiting, diarrhea or constipation Musculoskeletal: (+) lower extremity weakness, No joint pain, calf pain, swelling Neurologic: (+) weakness, and decrease ambulation, NO numbness/tingling, or balance problems Psychiatric: No anxiety or depression Skin: No rash or itch Physical Exam Physical Exam: PHYSICAL EXAM: General: awake, alert, no apparent distress Head: Normocephalic, atraumatic ENT: PERRL, EOMI, no pharyngeal exudate, mucous membranes moist Neuro: AAO x 3, speech clear and appropriate, strength intact bilaterally 5/5 uppers, 3/5 lowers, sensation intact. She is able to flex and extend her feet, fire quads but not lift legs up off the bed. She has normal shoulder strength and arm movement, with normal trunk and neck movement at this time Chest: equal rise and fall of the chest, no accessory muscle use, no heaves or thrills, scattered crackeles, on room air, Cardiac: Regular rate and rhythm, telemetry reviewed, skin warm dry, cap refill <3 seconds, peripheral pulses +2 no JVD, no murmur, no JVD, no edema GI: NABS x 4 quadrants, soft, nontender to palpation, no rebound, guarding or tenderness : Spontaneously voiding, no pain, no CVA tenderness, Extremities: Normal inspection, no peripheral edema or erythema, calfs nontender to palpation Psych: Normal mood and affect Skin: superficial ecchymosis to hands and chest Results & Data Results & Data ([place]) Vital Signs (Past 12 Hours) Vital Signs Pulse Pulse Resp BP BP Pulse Ox 10/07/21 09:44 75 20 95/52 L 97 10/07/21 07:28 74 16 116/57 L 98 10/07/21 06:10 69 20 97 10/07/21 06:00 68 21 112/55 L 97 10/07/21 05:50 69 21 97 10/07/21 05:40 71 13 96 10/07/21 05:30 72 16 122/62 98 10/07/21 05:20 70 19 97 10/07/21 05:10 71 20 97 10/07/21 05:00 73 17 111/59 L 98 10/07/21 04:50 70 15 97 10/07/21 04:40 73 15 98 10/07/21 04:30 75 15 129/61 98 10/07/21 04:20 74 12 98 10/07/21 04:10 72 24 99 10/07/21 04:00 73 12 130/66 98 10/07/21 03:50 73 9 L 99 10/07/21 03:40 77 20 10/07/21 03:20 75 12 98 10/07/21 03:10 77 14 99 10/07/21 03:00 74 12 98 10/07/21 02:50 74 15 99 10/07/21 02:40 76 15 99 10/07/21 02:30 76 13 98 10/07/21 02:20 75 15 98 10/07/21 02:10 75 23 99 10/07/21 02:00 76 16 99 10/07/21 01:50 77 12 98 10/07/21 01:20 77 13 99 10/07/21 01:10 77 10 L 99 10/07/21 01:00 78 15 132/74 98 10/07/21 00:50 76 19 97 10/07/21 00:40 70 22 99 10/07/21 00:30 76 23 133/74 98 10/07/21 00:20 71 15 99 10/07/21 00:10 70 24 98 10/07/21 00:00 74 21 121/67 98 10/06/21 23:50 72 14 97 10/06/21 23:40 70 16 98 10/06/21 23:30 72 14 10/06/21 23:20 71 16 97 10/06/21 23:10 68 23 98 Laboratory Results Abnormal lab results 10/06/21 10/06/21 10/06/21 Range/Units 15:20 16:14 16:14 WBC (4.8-10.8) K/uL RBC 2.22 L (4.2-5.4) M/uL Hgb 6.5 L* (12.0-16.0) g/dL Hct 20.7 L* (37-47) % MCHC 31.4 L (32-36) g/dL RDW Std Deviation 61.5 H (36.4-46.3) fL RDW Coeff of Sue 18.2 H (11.5-14.5) % Neut # (Auto) 9.23 H (1.4-6.5) K/uL Lymph # (Auto) 0.62 L (1.2-3.4) K/uL Smyth # (Auto) (0.11-0.59) K/uL Immature Gran # (Auto) 0.06 H (0.00-0.02) K/uL Sodium (136-145) mmol/L Potassium (3.5-5.1) mmol/L Chloride (98-107) mmol/L Carbon Dioxide (21-32) mmol/L Anion Gap (3-11) BUN (7-18) mg/dl Creatinine (0.6-1.2) mg/dl BUN/Creatinine Ratio (10-20) Glucose (70-99) mg/dl Calcium (8.5-10.1) mg/dl AST (15-37) U/L ALT (12-78) U/L Troponin I (0-0.045) ng/ml C-Reactive Protein (0-0.29) mg/dl Total Protein (6.4-8.2) gm/dl Albumin (3.4-5.0) gm/dl Albumin/Globulin Ratio (0.9-2) SARS-CoV-2 (PCR) POSITIVE A* (Negative) Crossmatch See Detail 10/06/21 10/06/21 10/07/21 Range/Units 16:14 16:14 02:23 WBC 12.47 H (4.8-10.8) K/uL RBC 3.56 L (4.2-5.4) M/uL Hgb 10.5 L D (12.0-16.0) g/dL Hct 32.2 L (37-47) % MCHC (32-36) g/dL RDW Std Deviation 51.9 H (36.4-46.3) fL RDW Coeff of Sue 15.7 H (11.5-14.5) % Neut # (Auto) 9.96 H (1.4-6.5) K/uL Lymph # (Auto) 1.19 L (1.2-3.4) K/uL Smyth # (Auto) 1.00 H (0.11-0.59) K/uL Immature Gran # (Auto) 0.18 H (0.00-0.02) K/uL Sodium 135 L (136-145) mmol/L Potassium 5.5 H (3.5-5.1) mmol/L Chloride 109 H (98-107) mmol/L Carbon Dioxide 15 L (21-32) mmol/L Anion Gap (3-11) BUN 66 H (7-18) mg/dl Creatinine 1.92 H (0.6-1.2) mg/dl BUN/Creatinine Ratio 34.5 H (10-20) Glucose 105 H (70-99) mg/dl Calcium 7.0 L (8.5-10.1) mg/dl AST 156 H (15-37) U/L ALT 106 H (12-78) U/L Troponin I 0.239 H* (0-0.045) ng/ml C-Reactive Protein 5.21 H (0-0.29) mg/dl Total Protein 4.7 L (6.4-8.2) gm/dl Albumin 1.5 L (3.4-5.0) gm/dl Albumin/Globulin Ratio 0.5 L (0.9-2) SARS-CoV-2 (PCR) (Negative) Crossmatch 10/07/21 10/07/21 Range/Units 06:41 06:41 WBC (4.8-10.8) K/uL RBC 3.24 L (4.2-5.4) M/uL Hgb 9.8 L (12.0-16.0) g/dL Hct 29.3 L (37-47) % MCHC (32-36) g/dL RDW Std Deviation 52.4 H (36.4-46.3) fL RDW Coeff of Sue 15.9 H (11.5-14.5) % Neut # (Auto) 8.26 H (1.4-6.5) K/uL Lymph # (Auto) 0.66 L (1.2-3.4) K/uL Smyth # (Auto) 0.60 H (0.11-0.59) K/uL Immature Gran # (Auto) 0.09 H (0.00-0.02) K/uL Sodium 134 L (136-145) mmol/L Potassium (3.5-5.1) mmol/L Chloride 108 H (98-107) mmol/L Carbon Dioxide 14 L (21-32) mmol/L Anion Gap 12.0 H (3-11) BUN 64 H (7-18) mg/dl Creatinine 1.84 H (0.6-1.2) mg/dl BUN/Creatinine Ratio 34.9 H (10-20) Glucose 52 L* (70-99) mg/dl Calcium 7.4 L (8.5-10.1) mg/dl AST 153 H (15-37) U/L ALT 102 H (12-78) U/L Troponin I 0.225 H* (0-0.045) ng/ml C-Reactive Protein 6.40 H (0-0.29) mg/dl Total Protein 4.9 L (6.4-8.2) gm/dl Albumin 1.6 L (3.4-5.0) gm/dl Albumin/Globulin Ratio 0.5 L (0.9-2) SARS-CoV-2 (PCR) (Negative) Crossmatch Medications Administered Atorvastatin Calcium (Atorvastatin 40 Mg Tab) 80 mg PO [facility] Stop: 11/06/21 08:59 Last Admin: 10/07/21 09:33 Dose: 80 mg Documented by: [id number] Carvedilol (Carvedilol 12.5 Mg Tab) 12.5 mg PO BIDM [facility] Stop: 11/06/21 07:59 Last Admin: 10/07/21 07:25 Dose: 12.5 mg Documented by: [id number] Clopidogrel Bisulfate (Clopidogrel Bisulfate 75 Mg Tab) [facility] [place] Stop: 11/06/21 08:59 Last Admin: 10/07/21 09:34 Dose: 75 mg Documented by: [id number] Docusate Sodium (Docusate Sodium 100 Mg Cap) 100 mg PO BID [facility] Stop: 11/05/21 20:59 Last Admin: 10/07/21 09:35 Dose: Not Given Documented by: [id number] Admin: 10/07/21 02:00 Dose: Not Given Documented by: [id number] Ferrous Sulfate (Ferrous Sulfate 325 Mg Tab) 325 mg PO BIDM [facility] Stop: 11/06/21 07:59 Last Admin: 10/07/21 07:25 Dose: 325 mg Documented by: [id number] Fluticasone/Vilanterol (Fluticasone/Vilanterol 200/25mcg 14 Puffs/Inhaler) 1 puffs INH DAILY [facility] Stop: 11/06/21 08:59 Last Admin: 10/07/21 09:35 Dose: 1 puffs Documented by: [id number] Gabapentin (Gabapentin 100 Mg Cap) 200 mg PO HS [facility] Stop: 11/05/21 20:59 Last Admin: 10/07/21 02:51 Dose: 200 mg Documented by: [id number] Guaifenesin (Guaifenesin 600 Mg Tabcr) 600 mg PO BID [facility] Stop: 11/05/21 20:59 Last Admin: 10/07/21 09:36 Dose: 600 mg Documented by: [id number] Admin: 10/07/21 02:00 Dose: Not Given Documented by: [id number] Hydroxychloroquine Sulfate (Hydroxychloroquine Sulfate 200 Mg Tab) 200 mg PO QAM [facility] Stop: 11/06/21 08:59 Last Admin: 10/07/21 09:37 Dose: 200 mg Documented by: [id number] Pantoprazole Sodium 40 mg/ (Syringe) 10 mls @ 5 mls/min IV BID [facility] Stop: 11/05/21 20:59 Last Admin: 10/07/21 09:37 Dose: 5 mls/min Documented by: [id number] Admin: 10/07/21 02:00 Dose: Not Given Documented by: [id number] Levothyroxine Sodium (Levothyroxine Sodium 100 Mcg Tablet) 100 mcg PO DAILYBB [facility] Stop: 11/06/21 06:29 Last Admin: 10/07/21 07:27 Dose: 100 mcg Documented by: [id number] Psyllium Hydrophilic Mucilloid (Psyllium 58.6% Powder Packet) 1 pkt PO BIDM [facility] Stop: 11/06/21 07:59 Last Admin: 10/07/21 07:26 Dose: Not Given Documented by: [id number] Sodium Chloride (Sodium Chloride 1 Gm Tablet) 1 gm PO DAILY [facility] Stop: 11/06/21 08:59 Last Admin: 10/07/21 09:37 Dose: 1 gm Documented by: [id number] Tramadol HCl (Tramadol Hcl 50 Mg Tablet) 50 mg PO Q12H PRN PRN Reason: Pain (Scale Score 4-10) Stop: 11/05/21 20:12 Last Admin: 10/07/21 07:31 Dose: 50 mg Documented by: [id number] Ursodiol (Ursodiol 300 Mg Cap) 300 mg PO BID [facility] Stop: 11/05/21 20:59 Last Admin: 10/07/21 09:38 Dose: 300 mg Documented by: [id number] Admin: 10/07/21 02:00 Dose: Not Given Documented by: [id number] Discontinued Medications Calcium Carbonate (Calcium Carbonate 1,250 Mg/5 Ml Udc) 1,250 mg PO NOW STA Stop: 10/06/21 17:02 Last Admin: 10/06/21 17:44 Dose: 1,250 mg Documented by: [id number] Dextrose (Dextrose 50% 50 Ml Syringe) 25 ml IV NOW ONE Stop: 10/06/21 17:02 Last Admin: 10/06/21 17:14 Dose: 25 ml Documented by: [id number] Pantoprazole Sodium 40 mg/ (Dextrose) 100 mls @ 20 mls/hr IV Q5H [facility] Stop: 10/06/21 19:44 Last Infusion: 10/07/21 06:38 Dose: 0 mg/hr, 0 mls/hr Documented by: [id number] Admin: 10/06/21 16:41 Dose: 8 mg/hr, 20 mls/hr Documented by: [id number] Pantoprazole Sodium 40 mg/ (Syringe) 10 mls @ 5 mls/min IV NOW ONE Stop: 10/06/21 14:45 Last Admin: 10/06/21 16:41 Dose: 5 mls/min Documented by: [id number] Insulin Human Regular (Novolin-R Insulin Per Unit Charge) 4 units IV NOW STA Stop: 10/06/21 17:02 Last Admin: 10/06/21 17:14 Dose: 4 units Documented by: [id number] Cosigned by: [id number] PG Care Time/CCT Total # of Minutes Spent Total Time Spent with Patient: Total time spent is greater than 50% in coordination of care (as documented) at patient's floor/unit and/or counseling patient: Coding Level of Care Code 60560 Subseq Hosp Care Lvl 3 Diagnoses Acute GI bleeding K92.2 Abnormal LFTs R94.5 Elevated troponin R77.8 COVID-19 U07.1 Chronic hyponatremia E87.1 CAD (coronary artery disease) I25.10 Ischemic cardiomyopathy I25.5 Hypertensive kidney disease with CKD stage III I12.9; N18.3 Steroid dependent F19.20 Rheumatoid arthritis M06.9 Muscle weakness M62.81 Hyperkalemia E87.5 Hypoglycemia E16.2
[2021-10-07] MEDS ORDERED: FUROSEMIDE 40 MG/4 ML VIAL IV ONE (11:30)
--- NOTE | 2021-10-07 11:30 | Cardiology Consultation ---
Date of Consultation October 07, 2021 Assessment & Plan (1) CAD (coronary artery disease): (2) Ischemic cardiomyopathy: 1. Coronary disease: While the patient did present with anemia likely secondary to gastrointestinal blood loss, I would not currently recommend discontinuation of her dual anti-platelet therapy. She recently presented with an acute coronary syndrome requiring multiple stents both to the LAD and a branch vessel. Her reduced LV function, her anatomy and her presentation all place her at significant risk for acute stent thrombosis. Obviously, if she continues to have significant gastrointestinal blood loss the cannot otherwise be managed we will need to reassess continuing anti-platelet therapy. Fortunately, even with significant anemia she did not have symptoms of coronary insufficiency or angina. No recurrent symptoms suggestive of acute coronary syndrome. This is likely due to her very sedentary state. 2. Ischemic cardiomyopathy: She did appear to have some pulmonary congestion on exam and x-ray. She has some lower extremity edema. She was administered a diuretic earlier today. I would have a low threshold for administering additional doses of diuretic based on her oxygenation. We will need to monitor her renal function closely. We will need to be cautious regarding aggressive volume resuscitation. Patient should continue carvedilol. Rayray inhibition an ARB not initiated during her last admission due to renal insufficiency. History of Present Illness Reason for Consultation: Anemia, recent NSTEMI Requesting Physician: [place] Attending Physician: Raj Manning MD History of Present Illness The patient is a 75-year-old woman who presented on the 02 of September with an acute coronary syndrome. According to the patient for approximately 1 day prior to her presentation she had significant chest and back discomfort. Due to the persistent nature of the symptoms she was brought to the emergency room by her son and discovered to have an acute coronary syndrome requiring percutaneous intervention to the LAD and the 1st diagonal branch. She was also noted to have evidence of gastrointestinal hemorrhage at that time. EGD suggested gastritis in the patient was discharged on dual anti-platelet therapy and gastro protection. The patient was currently residing at a rehabilitation facility. Her main concern recently has been weakening of her core and lower extremities. She states that during her stay at the rehab facility she has become progressively weaker and is currently unable to ambulate. She did not endorse any recurrent chest discomfort. She has not had limiting dyspnea. She did not endorse dizziness, lightheadedness or presyncope. No sense of palpitations. She was seen in the outpatient setting 2 days ago and the laboratory studies suggested a significant drop of hemoglobin. She was subsequently referred to the emergency room. Allergies Allergy/AdvReac Type Severity Reaction Status Date / Time amoxicillin Allergy Intermediate SEVERE Verified 10/06/21 15:17 RHEUMATOID ARTHRITIC SYMPTOMS clavulanic acid Allergy Intermediate SEVERE Verified 10/06/21 15:17 RHEUMATOID ARTHRITIC SYMPTOMS iodine Allergy Intermediate Stage 1V Verified 10/06/21 15:17 kidney disease lactose Allergy Intermediate Gastrointestinal Verified 10/06/21 15:17 Upset auranofin [From Ridaura] Allergy Mild Rash Verified 09/27/21 13:40 infliximab [From Remicade] Allergy Mild Rash Verified 10/06/21 15:17 Penicillins Allergy Unknown ON MED LIST Verified 10/06/21 15:17 Sulfa (Sulfonamide AdvReac Intermediate "give me Verified 10/06/21 15:17 Antibiotics) anxiety" Home Medications Medication Instructions Recorded Confirmed Type ascorbate calcium (vitamin C) 500 500 mg PO QAM 02/15/19 10/06/21 History mg tablet cyanocobalamin (vitamin B-12) 1,000 mcg PO QAM 02/15/19 10/06/21 History 1,000 mcg capsule ursodiol 300 mg capsule 300 mg PO BID 02/15/19 10/06/21 History biotin 5,000 mcg sublingual tablet 5,000 mcg SL QAM 05/29/19 10/06/21 History methylprednisolone 4 mg tablet See Rx Instructions .ROUTE 05/21/20 10/06/21 History .COMPLEX tab hydroxychloroquine 200 mg tablet 200 mg PO QAM tab 11/16/20 10/06/21 History (Plaquenil) gentamicin sulfate (PF) 60 mg/6 mL 60 mg INHALATION UD PRN #45 ml 12/02/20 10/06/21 Rx intravenous solution albuterol sulfate 90 mcg/actuation 2 puff INH Q4H PRN #8.5 g 07/01/21 10/06/21 Rx aerosol inhaler (Ventolin HFA) diclofenac sodium 1 % topical gel 2 g TOPICAL QID PRN 09/02/21 10/06/21 History (Voltaren Arthritis Pain) atorvastatin 40 mg tablet 80 mg PO QAM #30 tab 09/14/21 10/06/21 Rx clopidogrel 75 mg tablet 75 mg PO QAM #30 tab 09/14/21 10/06/21 Rx psyllium husk 0.52 gram capsule 0.52 g PO BIDM 09/17/21 10/06/21 History (Metamucil) sodium chloride 1 gram tablet 1,000 mg PO DAILY tab 10/04/21 10/06/21 History acetaminophen 325 mg tablet 650 mg PO Q4H PRN 10/06/21 10/06/21 History (Tylenol) bisacodyl 10 mg rectal suppository 10 mg GA DAILY PRN 10/06/21 10/06/21 History carvedilol 12.5 mg tablet 12.5 mg PO BIDM 10/06/21 10/06/21 History dextromethorphan-guaifenesin 30 1 tab PO BID 10/06/21 10/06/21 History mg-600 mg tablet extended [id number] hr (Mucinex DM) docusate sodium 100 mg capsule 100 mg PO BID 10/06/21 10/06/21 History ferrous sulfate 325 mg (65 mg 325 mg PO BIDM 10/06/21 10/06/21 History iron) tablet fluticasone furoate 200 1 inh INHALATION DAILY 10/06/21 10/06/21 History mcg-vilanterol 25 mcg/dose inhalation powder (Breo Ellipta) gabapentin 100 mg capsule 200 mg PO HS 10/06/21 10/06/21 History levothyroxine 100 mcg tablet 100 mcg PO DAILYBB 10/06/21 10/06/21 History loperamide 2 mg tablet (Imodium 2 mg PO Q4H PRN 10/06/21 10/06/21 History A-D) magnesium hydroxide 400 mg/5 mL 30 ml PO DAILY PRN 10/06/21 10/06/21 History oral suspension (Milk of Magnesia) ondansetron 4 mg disintegrating 4 mg PO Q6H PRN 10/06/21 10/06/21 History tablet pantoprazole 40 mg tablet,delayed 40 mg PO QDL 10/06/21 10/06/21 History release polyethylene glycol 3350 17 17 g PO QDL PRN 10/06/21 10/06/21 History gram/dose oral powder (Miralax) sennosides 8.6 mg-docusate sodium 1 tab-cap PO QDL PRN 10/06/21 10/06/21 History 50 mg tablet (Senokot-S) tramadol 50 mg tablet 50 mg PO Q12H PRN 10/06/21 10/06/21 History Patient History Medical History (Updated 10/07/21 @ 11:42 by SUPA Santana) Acute kidney injury Anemia Arm pain, right Bilateral sacroiliitis Choledocholithiasis Chronic hyponatremia Chronic kidney disease (CKD), stage III (moderate) Constipation Hypertension Intractable nausea and vomiting Nausea Piriformis syndrome Right hamstring muscle strain Skin tear of lower leg without complication 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 Russ Brambila S/P [facility] Family History Aunt Breast cancer Father Myocardial infarction Family history of diabetes mellitus Brother Family history of diabetes mellitus Brother Family history of diabetes mellitus Other No family history of adverse response to anesthesia Denies family history of Ovarian cancer Prostate cancer Colorectal cancer Social History Smoking Status: Never smoker Second Hand Exposure: No (parents smoked); Hx Alcohol Use: No Hx Substance Use: No Preferred Language: Pashto Communication Ability: Effective Visual Impairment: No Limitations Hearing Ability: Normal Director Of Medical Staff Services Required: No Beliefs That Will Affect Care: None marital status: Current Living Situation: Spouse Current Living Situation Comment: Lives with and son current occupational status: retired How many Children do You have: 1 Feels Safe at Home: Yes Childhood Exposure to Second-Hand Smoke: Yes caffeine: Yes Dental Care, Regularly: Yes Physical Activity Frequency: 3-4 Times per Week Seatbelt Use: always Sunscreen Use: Yes Assistive Devices: Glasses and Walker Review of Systems Review of Systems: Per HPI. At the time of her initial admission she did report melena. She has not noticed any rectal bleeding, bright red blood per rectum or melena recently. Physical Exam Physical Exam: She is alert and oriented x3. Mood affect appear normal. She answered all questions appropriately. HEENT: Sclerae are anicteric. Pupils are equal and reactive to light and accommodation. Extraocular movements were intact. Neuro: Cranial nerves intact Lungs: Lungs are clear to auscultation bilaterally. There are no rales wheezes or rhonchi. She has normal respiratory effort without use of accessory muscles. There is normal pulmonary excursion. Cardiac: The rhythm was regular. S1 and S2 were normal. There are no murmurs on examination. The PMI was not markedly displaced on palpation. Extremities: Patient has bilateral radial pulses that are equal in intensity. There is no evidence cyanosis or clubbing. Mild lower extremity edema bilaterally with trophic changes. Skin: There are no rashes noted on examination today. Multiple skin abrasions and ecchymoses. Results & Data ([facility]) Vital Signs (Past 12 Hours) Vital Signs Pulse Pulse Resp BP BP Pulse Ox 10/07/21 09:44 75 20 95/52 L 97 10/07/21 07:28 74 16 116/57 L 98 10/07/21 06:10 69 20 97 10/07/21 06:00 68 21 112/55 L 97 10/07/21 05:50 69 21 97 10/07/21 05:40 71 13 96 10/07/21 05:30 72 16 122/62 98 10/07/21 05:20 70 19 97 10/07/21 05:10 71 20 97 10/07/21 05:00 73 17 111/59 L 98 10/07/21 04:50 70 15 97 10/07/21 04:40 73 15 98 10/07/21 04:30 75 15 129/61 98 10/07/21 04:20 74 12 98 10/07/21 04:10 72 24 99 10/07/21 04:00 73 12 130/66 98 10/07/21 03:50 73 9 L 99 10/07/21 03:40 77 20 10/07/21 03:20 75 12 98 10/07/21 03:10 77 14 99 10/07/21 03:00 74 12 98 10/07/21 02:50 74 15 99 10/07/21 02:40 76 15 99 10/07/21 02:30 76 13 98 10/07/21 02:20 75 15 98 10/07/21 02:10 75 23 99 10/07/21 02:00 76 16 99 10/07/21 01:50 77 12 98 10/07/21 01:20 77 13 99 10/07/21 01:10 77 10 L 99 10/07/21 01:00 78 15 132/74 98 10/07/21 00:50 76 19 97 10/07/21 00:40 70 22 99 10/07/21 00:30 76 23 133/74 98 10/07/21 00:20 71 15 99 10/07/21 00:10 70 24 98 10/07/21 00:00 74 21 121/67 98 10/06/21 23:50 72 14 97 10/06/21 23:40 70 16 98 10/06/21 23:30 72 14 Laboratory Results Abnormal Lab Results 10/06/21 10/06/21 10/06/21 15:20 16:14 16:14 WBC 10.48 RBC 2.22 L Hgb 6.5 L* Hct 20.7 L* MCV 93.2 MCH 29.3 MCHC 31.4 L RDW Std Deviation 61.5 H RDW Coeff of Sue 18.2 H Plt Count 278 MPV 9.1 Immature Gran % (Auto) 0.6 Neut % (Auto) 88.0 Lymph % (Auto) 5.9 [place] % (Auto) 5.0 Eos % (Auto) 0.4 Baso % (Auto) 0.1 Neut # (Auto) 9.23 H Lymph # (Auto) 0.62 L [place] # (Auto) 0.52 Eos # (Auto) 0.04 Baso # (Auto) 0.01 Immature Gran # (Auto) 0.06 H Polychromasia 1+ Anisocytosis Present Echinocytes 1+ PT INR APTT PTT Ratio Sodium Potassium Chloride Carbon Dioxide Anion Gap BUN Creatinine Est Cr Clr Drug Dosing Est GFR ( Amer) Est GFR (Non-Af Amer) BUN/Creatinine Ratio Glucose POC Glucose Calcium Total Bilirubin AST ALT Alkaline Phosphatase Troponin I C-Reactive Protein Total Protein Albumin Globulin Albumin/Globulin Ratio Procalcitonin SARS-CoV-2 (PCR) POSITIVE A* Blood Type A Positive Antibody Screen NEGATIVE Crossmatch See Detail 10/06/21 10/06/21 10/06/21 16:14 16:14 16:14 WBC RBC Hgb Hct MCV MCH MCHC RDW Std Deviation RDW Coeff of Sue Plt Count MPV Immature Gran % (Auto) Neut % (Auto) Lymph % (Auto) [place] % (Auto) Eos % (Auto) Baso % (Auto) Neut # (Auto) Lymph # (Auto) [place] # (Auto) Eos # (Auto) Baso # (Auto) Immature Gran # (Auto) Polychromasia Anisocytosis Echinocytes PT 10.0 INR 1.0 APTT 27.0 PTT Ratio 1.0 Sodium 135 L Potassium 5.5 H Chloride 109 H Carbon Dioxide 15 L Anion Gap 11.0 BUN 66 H Creatinine 1.92 H Est Cr Clr Drug Dosing Not Reportable Est GFR ( Amer) 29.2 Est GFR (Non-Af Amer) 25.2 BUN/Creatinine Ratio 34.5 H Glucose 105 H POC Glucose Calcium 7.0 L Total Bilirubin 0.7 AST 156 H ALT 106 H Alkaline Phosphatase 87 Troponin I 0.239 H* C-Reactive Protein 5.21 H Total Protein 4.7 L Albumin 1.5 L Globulin 3.2 Albumin/Globulin Ratio 0.5 L Procalcitonin SARS-CoV-2 (PCR) Blood Type Antibody Screen Crossmatch 10/06/21 10/07/21 10/07/21 16:14 02:23 06:41 WBC 12.47 H 9.87 RBC 3.56 L 3.24 L Hgb 10.5 L D 9.8 L Hct 32.2 L 29.3 L MCV 90.4 90.4 MCH 29.5 30.2 MCHC 32.6 33.4 RDW Std Deviation 51.9 H 52.4 H RDW Coeff of Sue 15.7 H 15.9 H Plt Count 222 244 MPV 9.4 9.0 Immature Gran % (Auto) 1.4 0.9 Neut % (Auto) 79.9 83.7 Lymph % (Auto) 9.5 6.7 [place] % (Auto) 8.0 6.1 Eos % (Auto) 1.0 2.6 Baso % (Auto) 0.2 0.0 Neut # (Auto) 9.96 H 8.26 H Lymph # (Auto) 1.19 L 0.66 L [place] # (Auto) 1.00 H 0.60 H Eos # (Auto) 0.12 0.26 Baso # (Auto) 0.02 0.00 Immature Gran # (Auto) 0.18 H 0.09 H Polychromasia 1+ Anisocytosis Echinocytes 1+ PT INR APTT PTT Ratio Sodium Potassium Chloride Carbon Dioxide Anion Gap BUN Creatinine Est Cr Clr Drug Dosing Est GFR ( Amer) Est GFR (Non-Af Amer) BUN/Creatinine Ratio Glucose POC Glucose Calcium Total Bilirubin AST ALT Alkaline Phosphatase Troponin I C-Reactive Protein Total Protein Albumin Globulin Albumin/Globulin Ratio Procalcitonin 0.44 SARS-CoV-2 (PCR) Blood Type Antibody Screen Crossmatch 10/07/21 10/07/21 10/07/21 06:41 06:41 08:16 WBC RBC Hgb Hct MCV MCH MCHC RDW Std Deviation RDW Coeff of Sue Plt Count MPV Immature Gran % (Auto) Neut % (Auto) Lymph % (Auto) [place] % (Auto) Eos % (Auto) Baso % (Auto) Neut # (Auto) Lymph # (Auto) [place] # (Auto) Eos # (Auto) Baso # (Auto) Immature Gran # (Auto) Polychromasia Anisocytosis Echinocytes PT INR APTT PTT Ratio Sodium 134 L Potassium 4.5 D Chloride 108 H Carbon Dioxide 14 L Anion Gap 12.0 H BUN 64 H Creatinine 1.84 H Est Cr Clr Drug Dosing Not Reportable Est GFR ( Amer) 30.8 Est GFR (Non-Af Amer) 26.5 BUN/Creatinine Ratio 34.9 H Glucose 52 L* POC Glucose 79 Calcium 7.4 L Total Bilirubin 0.9 AST 153 H ALT 102 H Alkaline Phosphatase 93 Troponin I 0.225 H* Cancelled C-Reactive Protein 6.40 H Total Protein 4.9 L Albumin 1.6 L Globulin 3.3 Albumin/Globulin Ratio 0.5 L Procalcitonin SARS-CoV-2 (PCR) Blood Type Antibody Screen Crossmatch Diagnostic Findings Pulmonary vascular congestion, small pleural effusions, left basilar consolidation and a hiatal hernia ECG Additional Comments: Admission revealed normal sinus rhythm with nonspecific ST and T-wave changes. PG Care Time/CCT Total # of Minutes Spent Total Time Spent with Patient: Total time spent is greater than 50% in coordination of care (as documented) at patient's floor/unit and/or counseling patient: Coding Level of Care Code 32027 Initial Inpt Care Lvl 3 Diagnoses CAD (coronary artery disease) I25.10 Ischemic cardiomyopathy I25.5
[2021-10-07] MEDS: ASPIRIN 81 MG ECTAB PO SCH (12:15)
[2021-10-07 13:31] LABS: Vitamin B12 > 2000 pg/ml (193-986)
[2021-10-07] MEDS: THIAMINE HCL 200 MG in SODIUM CHLORIDE 0.9% 50 ML IV SCH (13:42)
[2021-10-07] MEDS ORDERED: INFLUENZA VACCINE HIGH DOSE PF 65+ 0.7 ML SYR IM ONE (23:32)
[2021-10-07] MEDS: ONDANSETRON INJ 2 MG/ML 2 ML VIAL IV PRN (23:47)
[2021-10-08] MEDS: LEVOTHYROXINE SODIUM 100 MCG TABLET PO SCH (05:56)
[2021-10-08] MEDS: ursodioL 300 MG CAP PO SCH ×2 (08:19→22:10)
[2021-10-08] MEDS: PANTOprazole 40 MG in SYRINGE 0 ML IV SCH ×2 (08:19→22:10)
[2021-10-08] MEDS: DOCUSATE SODIUM 100 MG CAP PO SCH ×2 (08:19→22:12)
[2021-10-08] MEDS: guaiFENesin 600 MG TABCR PO SCH ×2 (08:19→22:11)
[2021-10-08] MEDS: ASPIRIN 81 MG ECTAB PO SCH (08:20)
[2021-10-08] MEDS: ATORVASTATIN 40 MG TAB PO SCH (08:20)
[2021-10-08] MEDS: carvediloL 12.5 MG TAB PO SCH ×3 (08:21→17:50)
[2021-10-08] MEDS: CLOPIDOGREL BISULFATE 75 MG TAB PO SCH (08:21)
[2021-10-08] MEDS: PSYLLIUM 58.6% POWDER PACKET PO SCH ×2 (08:22→17:35)
[2021-10-08] MEDS: FERROUS SULFATE 325 MG TAB PO SCH ×2 (08:22→17:35)
[2021-10-08] MEDS: FLUTICASONE/VILANTEROL 200/25MCG 14 PUFFS/INHALER INH SCH (08:23)
[2021-10-08] MEDS: HYDROXYCHLOROQUINE SULFATE 200 MG TAB PO SCH (08:24)
[2021-10-08] MEDS: SODIUM CHLORIDE 1 GM TABLET PO SCH (08:24)
[2021-10-08] MEDS: THIAMINE HCL 200 MG in SODIUM CHLORIDE 0.9% 50 ML IV SCH (09:00)
[2021-10-08] MEDS: ONDANSETRON INJ 2 MG/ML 2 ML VIAL IV PRN (11:01)
[2021-10-08] MEDS: traMADol HCL 50 MG TABLET PO PRN ×2 (11:42→23:47)
--- NOTE | 2021-10-08 14:18 | Hospitalist Progress Note ---
Date of Service October 08, 2021 Assessment & Plan (1) Acute GI bleeding: Plan: Patient with history of UGI bleed with Gastritis - recently had EGD 09/08 with diffuse mild inflammation characterized by congestion, erythema, granularity - HGB on admit was 6.5- received 2 units of PRBC with improvement to 10.5, 9.8 10/08 - was receiving heparin sq for [facility] ppx [facility]. discharged on pantoprazole 40 mg daily - Discontinue VTE proplhylaxis heparin, defer other chemical prophy - Continue Protonix 40mg IV BID - Resume max oral therapy at discharge 40mg PO BID as she is also on intermediate steroid therapy and DAPT - no melena/obvious bleeding. - continue anti-platelet agents in setting of recent PCI. High reocclusion risk without. Appreciate cardiology consult and assistance - Advance diet (2) Abnormal LFTs: Plan: Likely secondary to COVID 19, also recently started on statin therapy? Statin transaminitis - follow, statin held as below (3) Urinary retention: Plan: -As noted in subjective, with reduced output 10/08, bladder scan for 1560. Patient refuses bladder decompression, frustrated and reports will only use commode. Nursing assisted t patient with commode, voided but still with residual greater than 700. Risk/benefits discussed as noted in subjective, patient initially refusing bladder decompression, and recounseling patient agreeable. Prater unable to be obtained on initial attempts, urology consulted for stat bladder decompression Suspect chronic given minimal discomfort with large volume Given additional lower extremity severe weakness discussed differential and severity of potential cauda equina or abscess with patient. Patient had refused MRI earlier and on admission, revisited the risk given that she has had severe progressive bilateral lower extremity weakness with severe urinary retention without other clear cause other than potentially tramadol. Patient agreeable to this on counseling Stat lumbar MRI pending. (4) Muscle weakness: Plan: Multiple etiologies at this time- anemia, decrease oral intake of nutrition, RA with COVID- ? MG - TSH WNL - Remains on levothyroxine 100mcg PO daily - B12 and Folate ordered - Will start Thiamine 200mg IV daily - MG labs sent on admit CK elevated, DDx includes myositis, sarcoid, drug-induced, metabolic. ?statin or steroid myopathy, pt sx accelerated after statin started with elevated CK. Statin temporarily held - She does not endorse any other supplements like zinc (5) Pneumonia: Plan: Patient with leukocytosis to 13 CXR Trace right and small left pleural effusions with persistent left basilar consolidation concerning for superimposed pneumonia We will cover empirically. Rocephin daily x5 days (6) Elevated troponin: Plan: -Troponin slight uptrend then down trended. Clinically remains without chest pain, chest pressure, shortness of breath - Elevated secondary to demand from anemia, COVID illness, CKD Cardiology consulted. EKG on admission without signs of acute ACS/territorial changes (7) COVID-19: Plan: -positive PCR 10/06 - mild cough, no hypoxia, - not a candidate for steroids/remdesivir/aggressive treatment at this time - vaccinated x2 in January 2021 - trend CRP, WBC - Will hold on chemoprophylaxis as above (8) Chronic hyponatremia: Plan: Sodium improved from prior, 135 on admit, 134 today. -Held 1g NaCl tabs in setting of near normal sodium and low EF. Resume if continuing to downtrend - 1500 ml fluid restriction (9) Hyperkalemia: Plan: - K 5.5, received insulin, D50, calcium gluconate x 1, -Received IV Lasix for diuresis - potassium normalized, then up trended slightly Suspect post renal,? Muscle breakdown with myopathy and elevated CK see below BMP every morning, spironolactone held, hydration, trend a.m. Patient pending bladder decompression due to post renal injury, (10) CAD (coronary artery disease): Plan: - 09/14/21 underwent PCI D1 and LAD. - There was concern for additional disease in RCA and Circ with possible staged PCI in the future. -Continue dual antiplatelet therapy, carvedilol, aspirin as below. Atorvastatin held as noted - Appreciate cardiology assistance (11) Ischemic cardiomyopathy: Plan: ICM with HFrEF- no an acue exacerbation - EF 25-30% last month - peripheral edema, . No new oxygen requirement - cont carvedilol, plavix, asa, (12) Hypertensive kidney disease with CKD stage III: Plan: CKD 3b - monitor I/O, daily BMP - avoid nephrotoxic agents -Baseline approximately 2 At/near baseline, then up to trend 10/08 following diuresis Patient with severe urinary retention, over a liter in the bladder and post void residual 700 cc. Initially refusing catheterization, on revisit in coun seling patient agreeable. 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: Plan: Rheumatoid arthritis: - Pt has immune suppressing medications, Plaquenil, tofacitinib - no acute flare at this time - has been concerned about significant weakness and trouble moving legs however states this has been ongoing since discharge of last hospital admission - May need stress dosed steroids- borderline hypotensive, hypoglcyemic, she has remained normotensive (15) Hypoglycemia: Plan: - continue with dextrose sticks and hypoglycemic protocol - This may have been from her treatment of hyperkalemia -Continue to follow Admission and Anticipated Discharge Date Admission Date: October 06, 2021 Subjective Patient is seen at the bedside this morning. She expresses frustration over hospitalization, and that she feels that the hospital is caused her to be ill and worsened. Was seen September 02 for ACS and had stents placed, following this hospitalization she was discharged to rehab. She reports as soon as she arrived at rehab she immediately developed lower extremity and upper extremity swelling, and has had progressive weakness of her abdomen and lower extremities. She reports that she is not currently able to walk or get out of bed. At her last visit she was found to have gastritis on EGD, no ulceration. Denies bleeding today, denies bowel movement/urination today. Endorses weakness in her lower extremities in the past month progressive. Denies fever/chills /sweats/shortness of breath/difficulty breathing. Endorses fatigue. Patient with reduced output today, bladder scan for 1559. Discussed that this can cause post renal damage to her kidneys which especially given her underlying CKD could cause her kidney function and fluid balance to significantly worsen. Discussed that she is also noted to have pulmonary vascular congestion and evidence of fluid overload on exam, and that in order to help improve this the medications require her to be able to eliminate urine through her bladder and void. Patient expresses frustration that people of not helped her up to a commode 2 days ago. Has refused PT/OT today, refuses straight cath/Prater for urinary retention. Discussed that I am happy to get assistance to help her up to see if she is able to void, but that if she is still unable to void would recommend bladder decompression. Reinforced that bladder retention and bladder overload can cause post renal obstruction which can be medically dangerous and cause a severe kidney injury, again patient reports she understands this is able to verbalize back the risks of retained urine and of back origin/cauda equina which can be an emergency but "I refuse ". Discussed with nursing, will trial bedpan versus movement to commode if can be done so safely given her weakness, and to reevaluate after. Update: Patient assisted to commode, voided but still with post void residual of nearly 800 cc. Repeat BMP ordered. Continues to refuse cath/drainage. Discussed plan of care with patient's and son. Discussed troponin leak, urinary retention, edema, Covid positive status, and hemoglobin. Discussed the patient has had clear frustration with her course, and poor therapeutic relationship with her care team to this point which is understandable considering her recent admissions and clinical worsening. Update #2: BMP showed JOAN likely post-renal 2/2 obstruction and increased K. Revisisted with pt who agrees to bladder decompression, nursing unable to obtain prater. Rediscussed back as concerning given her weakness, pt agreeable to MRI. Urology contacted for decompression as prater unable to be obtained by nursing. Review of Systems Review of Systems: Limited as noted in subjective, but endorses bilateral lower extremity weakness, abdominal/core muscle weakness, edema of the hands and feet, fatigue. Otherwise 10 point review of systems negative. Physical Exam Physical Exam: Limited by engagement, see subjective General: A&Ox3. Nontoxic HEENT: Atraumatic, normocephalic. Visual acuity and hearing grossly intact. Pulm: Symmetrical chest rise. No increase work of breathing. No respiratory distress. Cardiac: RRR,. Radial pulses intact and symmetrical. Abdominal: Nontender, softly distended. BS present. Extremities: Pitting edema of the distal lower extremity bilaterally. 1/5 hip flexion bilaterally, ankle dorsiflexion/plantarflexion grossly intact but weak bilaterally. Numerous ecchymoses/contusion of hands and arms healing without signs of overlying crepitus, erythema, discharge. Sensation to soft touch intact in feet bilaterally without deficit. Results & Data Results & Data ([facility]) Vital Signs (Past 12 Hours) Vital Signs Temp Pulse Pulse Resp BP Pulse Ox 10/08/21 08:13 36.4 C L 74 16 118/70 95 10/08/21 06:20 84 10/08/21 04:30 95 10/08/21 03:51 36.3 C L 62 16 116/64 90 PG Care Time/CCT Total # of Minutes Spent Total Time Spent with Patient: Total time spent is greater than 50% in coordination of care (as documented) at patient's floor/unit and/or counseling patient: Coding Level of Care Code 65753 Subseq Hosp Care Lvl 3 Diagnoses Acute GI bleeding K92.2 Abnormal LFTs R94.5 Elevated troponin R77.8 COVID-19 U07.1 Chronic hyponatremia E87.1 Hyperkalemia E87.5 CAD (coronary artery disease) I25.10 Ischemic cardiomyopathy I25.5 Hypertensive kidney disease with CKD stage III I12.9; N18.3 Rheumatoid arthritis M06.9 Steroid dependent F19.20 Muscle weakness M62.81 Hypoglycemia E16.2 Urinary retention R33.9 Pneumonia J18.9
[2021-10-08 16:19] LABS: Hematocrit (blood only) 34.6 % (37-47); Hemoglobin 11.5 g/dL (12.0-16.0); Mean Corpuscular Hemoglobin 30.6 pg (25-34); Mean Corpuscular Hgb Conc 33.2 g/dL (32-36); Mean Platelet Volume 9.4 fL (7.4-10.4); Platelet Count 248 K/uL (130-400); RDW Coefficient of Variation 16.4 % (11.5-14.5); RDW Standard Deviation 54.8 fL (36.4-46.3); Red Blood Count 3.76 M/uL (4.2-5.4); White Blood Count 13.25 K/uL (4.8-10.8)
[2021-10-08 16:37] LABS: Basophils # (auto) 0.01 K/uL (0-0.2); Basophils % (auto) 0.1 %; Eosinophils # (auto) 0.07 K/uL (0-0.5); Eosinophils % (auto) 0.5 %; Immature Granulocytes % (auto) 0.8 %; Lymphocytes # (auto) 0.39 K/uL (1.2-3.4); Lymphocytes % (auto) 2.9 %; Monocytes # (auto) 0.51 K/uL (0.11-0.59); Monocytes % (auto) 3.8 %; Neutrophils # (auto) 12.17 K/uL (1.4-6.5); Neutrophils % (auto) 91.9 %; Polychromasia 1+
[2021-10-08 16:48] LABS: Albumin Level 1.5 gm/dl (3.4-5.0); Calcium 7.6 mg/dl (8.5-10.1); Creatinine Clr Calc Pharmacy 16.3 ml/min; Est GFR (African American) 20.5 ml/min; Est GFR (Non-African American) 17.7 ml/min
[2021-10-08 16:49] LABS: Potassium 5.2 mmol/L (3.5-5.1)
[2021-10-08 16:56] LABS: Albumin Globulin Ratio 0.4 (0.9-2); Bilirubin,Total 1.1 mg/dl (0.2-1); Globulin 3.9 gm/dl (2.5-4.0); Total Protein 5.4 gm/dl (6.4-8.2); Troponin I 0.241 ng/ml (0-0.045)
[2021-10-08] MEDS ORDERED: levoFLOXacin/D5W 750 MG/150 ML BAG IV ONE (18:20)
[2021-10-08] MEDS ORDERED: LORazepam 0.5 MG TAB PO STA (20:23)
[2021-10-08] MEDS: GABAPENTIN 100 MG CAP PO SCH (22:12)
[2021-10-08] MEDS: cefTRIAXone SODIUM 1,000 MG in DEXTROSE 5% 50 ML IV SCH (22:12)
--- NOTE | 2021-10-08 22:32 | Urology Consultation ---
Date of Consultation October 08, 2021 Assessment & Plan (1) Urinary retention: Gibbons catheter was successfully placed at bedside on 10/08. Gibbons catheter should stay in place while she is recovering from her other problems. A voiding trial can be performed at the urology office, where she is still in the hospital after 2 weeks. Etiology of her urinary retention is unclear at this point. MRI should further elucidate whether there is any component of cauda equina syndrome. Other common causes are urinary tract infection and constipation. There may also be a positional component for her, where she is not ambulating normally, she she may not void as well. Further work-up with urodynamic studies could be performed as an outpatient to help assess how well her bladder functions. Since she was able to tolerate more than a liter in her bladder without significant distress, there is likely a component of chronic retention. Would recommend bowel regimen, goal be 1 stool daily Consider urinalysis, treat for urinary tract infection if positive Maintain catheter for now, voiding trial in 2 weeks if still inpatient, otherwise with this can be coordinated by the urology office. We will arrange urology follow-up as an outpatient. Will sign off for now, please call with any questions or concerns. History of Present Illness Reason for Consultation: Urinary retention, inability to place Gibbons catheter Attending Physician: Delroy Zapata MD History of Present Illness This is a 75-year-old female with history of rheumatoid arthritis, ischemic cardiomyopathy who recently presented to the hospital with lower extremity weakness, as well as for management of anemia. Of note, on testing she was found to be positive for the COVID-19 virus. She reports that while she was in the ED, she was not allowed to stand up to use the restroom, and could not use the bedpan to void. She states that as a result of this, her bladder became overdistended and she was subsequently unable to void. For period of time she was refusing to have catheter attempts, but gradually had increasing discomfort, as well as elevated PVRs (greater than 1000 on bladder scan) and gradually worsening renal function. 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 Nursing staff was unable to place a Gibbons catheter, despite several attempts. Over this time Ms. Herrera has had increasing pain with these catheter attempts, as well as increasing lower abdominal pain. Urology was consulted for assistance with catheter placement. At the bedside she is still uncomfortable, but after some discussion was willing to undergo catheter attempt. An 18 Turkish coud catheter was placed, the balloon was inflated with 10 mL of normal saline and the catheter subsequently drained princess-colored urine. Allergies Allergy/AdvReac Type Severity Reaction Status Date / Time amoxicillin Allergy Intermediate SEVERE Verified 10/06/21 15:17 RHEUMATOID ARTHRITIC SYMPTOMS clavulanic acid Allergy Intermediate SEVERE Verified 10/06/21 15:17 RHEUMATOID ARTHRITIC SYMPTOMS iodine Allergy Intermediate Stage 1V Verified 10/06/21 15:17 kidney disease lactose Allergy Intermediate Gastrointestinal Verified 10/06/21 15:17 Upset auranofin [From Ridaura] Allergy Mild Rash Verified 09/27/21 13:40 infliximab [From Remicade] Allergy Mild Rash Verified 10/06/21 15:17 Penicillins Allergy Unknown ON MED LIST Verified 10/06/21 15:17 Sulfa (Sulfonamide AdvReac Intermediate "give me Verified 10/06/21 15:17 Antibiotics) anxiety" Home Medications Medication Instructions Recorded Confirmed Type ascorbate calcium (vitamin C) 500 500 mg PO QAM 02/15/19 10/06/21 History mg tablet cyanocobalamin (vitamin B-12) 1,000 mcg PO QAM 02/15/19 10/06/21 History 1,000 mcg capsule ursodiol 300 mg capsule 300 mg PO BID 02/15/19 10/06/21 History biotin 5,000 mcg sublingual tablet 5,000 mcg SL QAM 05/29/19 10/06/21 History methylprednisolone 4 mg tablet See Rx Instructions .ROUTE 05/21/20 10/06/21 History .COMPLEX tab hydroxychloroquine 200 mg tablet 200 mg PO QAM tab 11/16/20 10/06/21 History (Plaquenil) gentamicin sulfate (PF) 60 mg/6 mL 60 mg INHALATION UD PRN #45 ml 12/02/20 10/06/21 Rx intravenous solution albuterol sulfate 90 mcg/actuation 2 puff INH Q4H PRN #8.5 g 07/01/21 10/06/21 Rx aerosol inhaler (Ventolin HFA) diclofenac sodium 1 % topical gel 2 g TOPICAL QID PRN 09/02/21 10/06/21 History (Voltaren Arthritis Pain) atorvastatin 40 mg tablet 80 mg PO QAM #30 tab 09/14/21 10/06/21 Rx clopidogrel 75 mg tablet 75 mg PO QAM #30 tab 09/14/21 10/06/21 Rx psyllium husk 0.52 gram capsule 0.52 g PO BIDM 09/17/21 10/06/21 History (Metamucil) sodium chloride 1 gram tablet 1,000 mg PO DAILY tab 10/04/21 10/06/21 History acetaminophen 325 mg tablet 650 mg PO Q4H PRN 10/06/21 10/06/21 History (Tylenol) bisacodyl 10 mg rectal suppository 10 mg VA DAILY PRN 10/06/21 10/06/21 History carvedilol 12.5 mg tablet 12.5 mg PO BIDM 10/06/21 10/06/21 History dextromethorphan-guaifenesin 30 1 tab PO BID 10/06/21 10/06/21 History mg-600 mg tablet extended [id number] hr (Mucinex DM) docusate sodium 100 mg capsule 100 mg PO BID 10/06/21 10/06/21 History ferrous sulfate 325 mg (65 mg 325 mg PO BIDM 10/06/21 10/06/21 History iron) tablet fluticasone furoate 200 1 inh INHALATION DAILY 10/06/21 10/06/21 History mcg-vilanterol 25 mcg/dose inhalation powder (Breo Ellipta) gabapentin 100 mg capsule 200 mg PO HS 10/06/21 10/06/21 History levothyroxine 100 mcg tablet 100 mcg PO DAILYBB 10/06/21 10/06/21 History loperamide 2 mg tablet (Imodium 2 mg PO Q4H PRN 10/06/21 10/06/21 History A-D) magnesium hydroxide 400 mg/5 mL 30 ml PO DAILY PRN 10/06/21 10/06/21 History oral suspension (Milk of Magnesia) ondansetron 4 mg disintegrating 4 mg PO Q6H PRN 10/06/21 10/06/21 History tablet pantoprazole 40 mg tablet,delayed 40 mg PO QDL 10/06/21 10/06/21 History release polyethylene glycol 3350 17 17 g PO QDL PRN 10/06/21 10/06/21 History gram/dose oral powder (Miralax) sennosides 8.6 mg-docusate sodium 1 tab-cap PO QDL PRN 10/06/21 10/06/21 History 50 mg tablet (Senokot-S) tramadol 50 mg tablet 50 mg PO Q12H PRN 10/06/21 10/06/21 History Patient History Medical History (Updated 10/08/21 @ 18:03 by Delroy Zapata MD) Acute kidney injury Anemia Arm pain, right Bilateral sacroiliitis Choledocholithiasis Chronic hyponatremia Chronic kidney disease (CKD), stage III (moderate) Constipation Hypertension Intractable nausea and vomiting Nausea Piriformis syndrome Right hamstring muscle strain Skin tear of lower leg without complication 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 Russ Brambila S/P [facility] Family History Aunt Breast cancer Father Myocardial infarction Family history of diabetes mellitus Brother Family history of diabetes mellitus Brother Family history of diabetes mellitus Other No family history of adverse response to anesthesia Denies family history of Ovarian cancer Prostate cancer Colorectal cancer Social History Smoking Status: Never smoker Second Hand Exposure: No; Do You Dip or Chew Tobacco: No; Hx Alcohol Use: No Hx Substance Use: No Preferred Language: Chinese Communication Ability: Effective Visual Impairment: No Limitations Hearing Ability: Normal 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 Beliefs That Will Affect Care: None marital status: Current Living Situation: Personal Care Facility Current Living Situation Comment: Lives with and son current occupational status: retired How many Children do You have: 1 Feels Safe at Home: Yes Safety Concerns: Feels Safe At This Time Childhood Exposure to Second-Hand Smoke: Yes caffeine: Yes Dental Care, Regularly: Yes Physical Activity Frequency: 3-4 Times per Week Seatbelt Use: always Sunscreen Use: Yes Assistive Devices: Cane and Glasses Review of Systems Constitutional: Weakness and fatigue Respiratory: Some cough, dyspnea on exertion Cardiovascular: Additional Comments: Lower extremity edema Gastrointestinal: No nausea or vomiting Genitourinary: Urinary retention Musculoskeletal: Lower extremity weakness, pain with motion from rheumatoid arthritis. Physical Exam Constitutional: Elderly, frail, NAD Eyes: Conjugate gaze Respiratory: Breathing comfortably on room air, no audible wheezing, occasional cough Cardiovascular: Regular rate and rhythm Gastrointestinal (Abdomen): Lower abdominal tenderness to palpation Musculoskeletal: Lower extremity weakness and limited range of motion Skin: Bandages on pressure points, scattered bruises Neurologic: Alert and oriented Genitourinary: Gibbons catheter placed, draining clear princess urine Results & Data ([facility]) Vital Signs (Past 12 Hours) Vital Signs Temp Pulse Resp BP Pulse Ox 10/08/21 20:22 37.4 C 86 18 96/61 L 94 10/08/21 17:00 36.7 C 85 17 102/61 96 10/08/21 15:00 36.6 C 84 16 110/64 96 PG Care Time/CCT Total # of Minutes Spent Total Time Spent with Patient: Total time spent is greater than 50% in coordination of care (as documented) at patient's floor/unit and/or counseling patient: Coding Level of Care Code 18340 Inpt Consult Level 3 Diagnoses Urinary retention R33.9
[2021-10-08] MEDS ORDERED: GLUCAGON FOR INJ 1 MG VIAL SQ PRN (23:58)
[2021-10-08] MEDS ORDERED: GLUCOSE 40% GEL 15 GM TUBE PO PRN (23:58)
[2021-10-08] MEDS ORDERED: GLUCOSE 10 TABS/TUBE PO PRN (23:58)
[2021-10-08] MEDS ORDERED: DEXTROSE 50% 50 ML SYRINGE IV PRN (23:58)
[2021-10-08] MEDS ORDERED: CARBOHYDRATES FOR HYPOGLYCEMIA PO PRN (23:58)
[2021-10-09] MEDS: LEVOTHYROXINE SODIUM 100 MCG TABLET PO SCH (05:34)
[2021-10-09 07:04] LABS: Albumin Globulin Ratio 0.3 (0.9-2); Albumin Level 1.2 gm/dl (3.4-5.0); BUN Creatinine Ratio 33.2 (10-20); Bilirubin,Total 0.8 mg/dl (0.2-1); Calcium 7.1 mg/dl (8.5-10.1); Creatinine Clr Calc Pharmacy 15.9 ml/min; Est GFR (African American) 20.6 ml/min; Est GFR (Non-African American) 17.8 ml/min; Globulin 3.5 gm/dl (2.5-4.0); Total Protein 4.7 gm/dl (6.4-8.2)
[2021-10-09 07:51] LABS: Hematocrit (blood only) 27.2 % (37-47); Hemoglobin 9.2 g/dL (12.0-16.0); Mean Corpuscular Hemoglobin 30.8 pg (25-34); Platelet Count 210 K/uL (130-400); RDW Coefficient of Variation 16.4 % (11.5-14.5); RDW Standard Deviation 54.1 fL (36.4-46.3); Red Blood Count 2.99 M/uL (4.2-5.4); White Blood Count 14.28 K/uL (4.8-10.8)
[2021-10-09 08:01] LABS: Mean Corpuscular Hgb Conc 33.8 g/dL (32-36)
[2021-10-09 08:04] LABS: Potassium 4.9 mmol/L (3.5-5.1)
[2021-10-09 08:18] LABS: Basophils # (auto) 0.02 K/uL (0-0.2); Basophils % (auto) 0.1 %; Eosinophils # (auto) 0.17 K/uL (0-0.5); Eosinophils % (auto) 1.2 %; Immature Granulocytes # (auto) 0.16 K/uL (0.00-0.02); Immature Granulocytes % (auto) 1.1 %; Lymphocytes # (auto) 0.69 K/uL (1.2-3.4); Lymphocytes % (auto) 4.8 %; Monocytes # (auto) 0.62 K/uL (0.11-0.59); Monocytes % (auto) 4.3 %; Neutrophils # (auto) 12.62 K/uL (1.4-6.5); Neutrophils % (auto) 88.5 %
--- NOTE | 2021-10-09 08:43 | Magnetic Resonance Report ---
MRI OF LUMBAR SPINE WITHOUT IV CONTRAST CLINICAL HISTORY: Lower extremity weakness. Bladder retention. COMPARISON STUDY: MRI of lumbar spine dated 03/22/2019. Radiographs of the lumbar spine dated 019. Abdominal CT dated 06/12/2019. TECHNIQUE: MRI of the lumbar spine is performed utilizing various T1 and T2-weighted sequences in the axial and sagittal planes. IV contrast was not administered for this examination. The examination is modestly degraded by motion artifact. FINDINGS: Lumbar spine: There are mild chronic superior endplate compression deformities of L4 and L5. There is no marrow edema to suggest acuity. Vertebral body height is otherwise maintained throughout the lumb ar spine. There is 7 mm of anterolisthesis at L4-L5. Alignment is otherwise preserved. There is moder ate lumbar levocurvature centered at L3. Anterior and lateral marginal osteophytes are seen throughou t. There is no evidence of spondylolysis. The transverse and spinous processes appear maintained. A h emangioma is noted in the body of T10. No destructive osseous lesion is seen. Chronic degenerative en dplate change is seen at all lumbar levels between L2-L3 and L5-S1. No significant endplate edema is identified. Intervertebral discs: Degenerative disc desiccation and loss of height is seen throughout the lumbar spine. Loss of height is moderate to severe at L1-L2, L2-L3, and L5-S1. Mild fluid within the discs a t L1-L2 and L2-L3 is nonspecific and likely on a degenerative basis. There is no associated endplate change or edema. Spinal cord: The visualized spinal cord is normal in morphology and signal intensity. The conus medul milagro terminates at the T12-L1 interspace. The nerve roots of the cauda equina are normal in morpholo gy. T12-L1: There is left posterior disc bulge and left lateral disc extrusion. No significant acquired c ompromise of the central canal is identified. The disc bulge contributes to severe left-sided subarti cular and neural frontal stenosis, with probable impingement on the exiting T12 nerve root. The right neural foramen is patent. L1-L2: There is broad-based posterior disc bulge with annular fissure. No significant acquired compro mise of the central canal is identified. There is bilateral subarticular stenosis with moderate to se jin right and [id number] left neural foraminal narrowing. L2-L3: There is posterior disc bulge eccentric to left with left lateral disc extrusion. This effaces the left ventral aspect of the thecal sac and impinges on the transiting nerve roots. There is sever e left-sided subarticular and neural foraminal stenosis with impingement on the exiting left L2 nerve root. In conjunction with facet arthropathy there is severe right-sided neural frontal stenosis, as well as probable impingement on the exiting right L2 nerve root. L3-L4: There is a posterior disc osteophyte complex with annular fissure. This abuts the transiting n erve roots. No significant acquired compromise of the central canal is identified. There is bilateral subarticular stenosis, left greater than right. In conjunction with facet arthropathy there is sever e bilateral neural foraminal stenosis, with possible impingement on the exiting bilateral L3 nerve ro ots. L4-L5: There is broad-based posterior disc bulge with annular fissure. This abuts the transiting nerv e roots. No high-grade central canal stenosis is identified. There is severe bilateral subarticular s tenosis, left greater than right with impingement on the exiting bilateral L4 nerve roots. In conjunc tion with facet arthropathy there is severe bilateral neural foraminal stenosis. L5-S1: There is posterior disc bulge eccentric to the left with annular fissure. This abuts the trans iting nerve roots. No significant acquired compromise of the central canal is identified. There is se jin left greater than right sided subarticular stenosis with probable impingement on the exiting vic ateral L5 nerve roots. There is severe bilateral neural foraminal narrowing. Sacrum: The visualized sacrum is normal in morphology and signal intensity. A 12 mm Tarlov cyst is se en at the level of S2. Soft tissues: There is fatty atrophy of the paraspinous musculature. The retroperitoneal structures a re grossly unremarkable but incompletely evaluated. IMPRESSION: 1. Multilevel lumbosacral spondylosis and scoliosis as above. See discussion for detailed level by le tal rivsa. 2. There are mild chronic compression deformities of L4 and L5. 3. Degenerative disc disease and chronic endplate change as above. 4. Nonspecific fluid within the discs at L1-L2 and L2-L3 is likely on a degenerative basis. Discitis is considered much less likely, and there is no associated paravertebral edema or endplate change. Cl inical correlation will be required. 5. Additional findings as above. Dictated: 10/09/2021 7:33 AM Transcribed: 10/09/2021 8:31 AM Leta [id number] [facility] Electronically signed by: Palmer Herring M.D. 10/09/2021 8:41 AM
[2021-10-09 09:31] LABS: Dohle Bodies 1+; Toxic Granulation 1+
[2021-10-09] MEDS: PANTOprazole 40 MG in SYRINGE 0 ML IV SCH ×2 (09:42→19:47)
[2021-10-09] MEDS: HYDROXYCHLOROQUINE SULFATE 200 MG TAB PO SCH (09:43)
[2021-10-09] MEDS: SODIUM CHLORIDE 1 GM TABLET PO SCH (09:43)
[2021-10-09] MEDS: FERROUS SULFATE 325 MG TAB PO SCH ×2 (09:43→16:50)
[2021-10-09] MEDS: PSYLLIUM 58.6% POWDER PACKET PO SCH ×2 (09:44→16:47)
[2021-10-09] MEDS: DOCUSATE SODIUM 100 MG CAP PO SCH ×2 (09:44→19:45)
[2021-10-09] MEDS: guaiFENesin 600 MG TABCR PO SCH ×2 (09:45→19:48)
[2021-10-09] MEDS: ursodioL 300 MG CAP PO SCH ×2 (09:45→19:48)
[2021-10-09] MEDS: carvediloL 12.5 MG TAB PO SCH ×2 (09:45→16:48)
[2021-10-09] MEDS: ASPIRIN 81 MG ECTAB PO SCH (09:46)
[2021-10-09] MEDS: CLOPIDOGREL BISULFATE 75 MG TAB PO SCH (09:46)
[2021-10-09] MEDS: FLUTICASONE/VILANTEROL 200/25MCG 14 PUFFS/INHALER INH SCH (09:47)
[2021-10-09] MEDS: THIAMINE HCL 200 MG in SODIUM CHLORIDE 0.9% 50 ML IV SCH (09:55)
[2021-10-09] MEDS: methylPREDNISolone 20 MG in SYRINGE 0 ML IV SCH ×2 (10:45→19:46)
--- NOTE | 2021-10-09 12:21 | Billing Data ---
Date of Service October 06, 2021 Coding Level of Care Code 38959 Initial Inpt Care Lvl 3
--- NOTE | 2021-10-09 12:33 | Hospitalist Progress Note ---
Date of Service October 09, 2021 Assessment & Plan (1) Myopathy: Plan: CPK 2000+ in August during her NSTEMI admission her CPK was <500 I believe that her leg weakness is due to myopathy rather than a lumbar spine issue most obvious cause of her myopathy - statin, as she was placed on lipitor for first time following her NSTEMI other possibility is that of COVID-19 but less likely HOLD statin takes chronic steroids (methylprednisolone) -- will Rx with methylprednisolone 20mg BID recheck CPK in am (2) Acute GI bleeding: Plan: concern for H/H stable over last 24 hours remains on PPI twice daily add carafate qid poor candidate for stopping her asa/plavix due to recent NSTEMI and stents repeat CBC am (3) COVID-19: Plan: thus far her symptoms are mild, especially her pulmonary symptoms hopefully her illness remains mild but she is at risk of significant disease progression continue daily labs continue airborne precautions continue pulmonary toilet thus far not a candidate for remdesivir steroids are primarily for her RA and #1 (4) Abnormal LFTs: Plan: 2nd to statin? holding lipitor repeat LFTs am (5) Elevated troponin: Plan: myocardial demand ischemia rather than recurrent NSTEMI (6) Chronic hyponatremia: Plan: stable BMP am (7) Ischemic cardiomyopathy: Plan: EF 25-30% on echo during admission for NSTEMI appears mildly volume contracted or euvolemic today cont BB not YANG or ARB candidate due to CKD (8) CKD (chronic kidney disease): Plan: STAGE 4 baseline CrCl <30 with mild JOAN at this time BMP am (9) CAD (coronary artery disease): Plan: as above (10) Hypertension: Plan: Controlled (11) Dyslipidemia: Plan: holding statin (12) Asthma: Plan: no exacerbation at this time (13) Acute hyperkalemia: Plan: 2nd JOAN resolved bmp am (14) Rheumatoid arthritis: Plan: no active flare at this time cont methylprednisolone cont plaquenil (15) Hypothyroidism: Plan: TSH earlier this month wnl cont synthroid (16) Gastritis: Plan: PPI carafate no pain w/ eating (17) Acute kidney injury: Plan: BMP am likely multifactorial (18) Abnormal MRI, lumbar spine: Plan: fluid in 2 vertebral levels on MRI doubt diskitis likely DJD HOWEVER, given her complex medical history and immunocompromised state, will ask Dr aLw to see and comment on her MRI she has chronic low back pain, but no change in her chronic symptoms she has no radicular symptoms she has no distal strength deficits (just proximal as in #1 above) Plan: updated by phone this evening Admission and Anticipated Discharge Date Admission Date: October 06, 2021 Subjective pt irritable during the visit she is sick of the hospital and upset with her lack of progress she feels that her leg weakness began a few days after her heart attack during the previous stay the leg weakness persisted and continued to worsen while at [facility] denies weakness of hands she denies myalgias she has a cough - largely nonproductive no dyspnea at rest she c/o being thirsty Review of Systems Review of Systems: gen - no fevers or chills HEENT - denies loss of taste/smell CV - no chest pain or tightness pulm - no sputum GI - no N/V Physical Exam Physical Exam: gen - coughing, otherwise NAD mouth - MM dry neck - no JVD heart - RRR, s1 s2 lungs - scant rales bases, decreased BS bases, no distress abd - soft NT ND BS+ ext - pulses 2+ b/l skin - extensive ecchymoses on arms and other locations neuro - proximal muscle weakness of hips (hip flexion significantly impaired); ankle dorsiflexion/plantarflexion wnl; handgrip 5/5 b/l; left shoulder strength intact; right shoulder strength poor due to advanced arthritis of that joint musculo - no synovitis of any joint Results & Data Results & Data ([facility]) Vital Signs (Past 12 Hours) Vital Signs Temp Pulse Pulse Resp BP Pulse Ox 10/09/21 09:40 80 125/72 10/09/21 03:28 36.7 C 77 18 118/68 95 10/09/21 00:44 90 Laboratory Results Laboratory Results - last 24 hr 10/08/21 10/08/21 10/08/21 12:25 16:06 16:06 WBC 13.25 H RBC 3.76 L Hgb 11.5 L Hct 34.6 L MCV 92.0 MCH 30.6 MCHC 33.2 RDW Std Deviation 54.8 H RDW Coeff of Sue 16.4 H Plt Count 248 MPV 9.4 Immature Gran % (Auto) 0.8 Neut % (Auto) 91.9 Lymph % (Auto) 2.9 [place] % (Auto) 3.8 Eos % (Auto) 0.5 Baso % (Auto) 0.1 Neut # (Auto) 12.17 H Lymph # (Auto) 0.39 L [place] # (Auto) 0.51 Eos # (Auto) 0.07 Baso # (Auto) 0.01 Immature Gran # (Auto) 0.10 H Absolute Nucleated RBC Nucleated RBC % (auto) Neutrophils % (Manual) Band Neutrophils % Lymphocytes % (Manual) Prolymphocyte % Reactive Lymphs % (Man) Monocytes % (Manual) Eosinophils % (Manual) Basophils % (Manual) Metamyelocytes % (Man) Myelocytes % (Man) Promyelocytes % (Man) Blast Cells % (Manual) Plasma Cell % (Manual) Other Cells % Nucleated RBC % Neutrophils # (Manual) Band Neutrophils # Total Absolute Neuts Lymphocytes # (Manual) Prolymphocyte # Reactive Lymphs # Total Abs Lymphocytes Monocytes # (Manual) Eosinophils # (Manual) Basophils # (Manual) Metamyelocytes # (Man) Myelocytes # (Manual) Promyelocytes # (Man) Blast Cells # (Man) Plasma Cell # (Manual) Other Cells # Nucleated RBCs # (Man) Hypersegmented Neuts Hyposegmented Neuts Hypogranular Neuts Large Granular Lymphs # Lrg Granular Lymphs Hairy Cells Smudge Cells Toxic Granulation Toxic Vacuolation Dohle Bodies Pérez Rods Platelet Estimate Hypogranular Platelets Clumped Platelets Giant Platelets Platelet Satelliting RBC Morphology Polychromasia 1+ Hypochromasia Poikilocytosis Basophilic Stippling Anisocytosis Microcytosis Macrocytosis Spherocytes Pappenheimer Bodies Sickle Cells Target Cells Tear Drop Cells Ovalocytes Stomatocytes Duffy-Cornell Bodies Echinocytes Acanthocytes (Spur) Rouleaux RBC Agglutinates Schistocytes RBC Morph Comment Sezary Cell Sodium 131 L Potassium 5.2 H D Chloride 106 Carbon Dioxide 13 L Anion Gap 12.0 H BUN 82 H Creatinine 2.57 H D Est Cr Clr Drug Dosing 16.3 Est GFR ( Amer) 20.5 Est GFR (Non-Af Amer) 17.7 BUN/Creatinine Ratio 32.0 H Glucose 99 POC Glucose 125 H Calcium 7.6 L Total Bilirubin 1.1 H AST 187 H ALT 112 H Alkaline Phosphatase 156 H Total Creatine Kinase 2265 H Troponin I 0.241 H* Total Protein 5.4 L Albumin 1.5 L Globulin 3.9 Albumin/Globulin Ratio 0.4 L 10/08/21 10/08/21 10/08/21 16:06 17:12 23:50 WBC RBC Hgb Hct MCV MCH MCHC RDW Std Deviation RDW Coeff of Sue Plt Count MPV Immature Gran % (Auto) Neut % (Auto) Lymph % (Auto) [place] % (Auto) Eos % (Auto) Baso % (Auto) Neut # (Auto) Lymph # (Auto) [place] # (Auto) Eos # (Auto) Baso # (Auto) Immature Gran # (Auto) Absolute Nucleated RBC Nucleated RBC % (auto) Neutrophils % (Manual) Band Neutrophils % Lymphocytes % (Manual) Prolymphocyte % Reactive Lymphs % (Man) Monocytes % (Manual) Eosinophils % (Manual) Basophils % (Manual) Metamyelocytes % (Man) Myelocytes % (Man) Promyelocytes % (Man) Blast Cells % (Manual) Plasma Cell % (Manual) Other Cells % Nucleated RBC % Neutrophils # (Manual) Band Neutrophils # Total Absolute Neuts Lymphocytes # (Manual) Prolymphocyte # Reactive Lymphs # Total Abs Lymphocytes Monocytes # (Manual) Eosinophils # (Manual) Basophils # (Manual) Metamyelocytes # (Man) Myelocytes # (Manual) Promyelocytes # (Man) Blast Cells # (Man) Plasma Cell # (Manual) Other Cells # Nucleated RBCs # (Man) Hypersegmented Neuts Hyposegmented Neuts Hypogranular Neuts Large Granular Lymphs # Lrg Granular Lymphs Hairy Cells Smudge Cells Toxic Granulation Toxic Vacuolation Dohle Bodies Pérez Rods Platelet Estimate Hypogranular Platelets Clumped Platelets Giant Platelets Platelet Satelliting RBC Morphology Polychromasia Hypochromasia Poikilocytosis Basophilic Stippling Anisocytosis Microcytosis Macrocytosis Spherocytes Pappenheimer Bodies Sickle Cells Target Cells Tear Drop Cells Ovalocytes Stomatocytes Duffy-Cornell Bodies Echinocytes Acanthocytes (Spur) Rouleaux RBC Agglutinates Schistocytes RBC Morph Comment Sezary Cell Sodium Potassium Chloride Carbon Dioxide Anion Gap BUN Creatinine Est Cr Clr Drug Dosing Est GFR ( Amer) Est GFR (Non-Af Amer) BUN/Creatinine Ratio Glucose POC Glucose 89 72 Calcium Total Bilirubin AST ALT Alkaline Phosphatase Total Creatine Kinase Troponin I Cancelled Total Protein Albumin Globulin Albumin/Globulin Ratio 10/09/21 10/09/21 10/09/21 03:20 05:34 06:03 WBC Cancelled RBC Cancelled Hgb Cancelled Hct Cancelled MCV Cancelled MCH Cancelled MCHC Cancelled RDW Std Deviation Cancelled RDW Coeff of Sue Cancelled Plt Count Cancelled MPV Cancelled Immature Gran % (Auto) Cancelled Neut % (Auto) Cancelled Lymph % (Auto) Cancelled [place] % (Auto) Cancelled Eos % (Auto) Cancelled Baso % (Auto) Cancelled Neut # (Auto) Cancelled Lymph # (Auto) Cancelled [place] # (Auto) Cancelled Eos # (Auto) Cancelled Baso # (Auto) Cancelled Immature Gran # (Auto) Cancelled Absolute Nucleated RBC Cancelled Nucleated RBC % (auto) Cancelled Neutrophils % (Manual) Cancelled Band Neutrophils % Cancelled Lymphocytes % (Manual) Cancelled Prolymphocyte % Cancelled Reactive Lymphs % (Man) Cancelled Monocytes % (Manual) Cancelled Eosinophils % (Manual) Cancelled Basophils % (Manual) Cancelled Metamyelocytes % (Man) Cancelled Myelocytes % (Man) Cancelled Promyelocytes % (Man) Cancelled Blast Cells % (Manual) Cancelled Plasma Cell % (Manual) Cancelled Other Cells % Cancelled Nucleated RBC % Cancelled Neutrophils # (Manual) Cancelled Band Neutrophils # Cancelled Total Absolute Neuts Cancelled Lymphocytes # (Manual) Cancelled Prolymphocyte # Cancelled Reactive Lymphs # Cancelled Total Abs Lymphocytes Cancelled Monocytes # (Manual) Cancelled Eosinophils # (Manual) Cancelled Basophils # (Manual) Cancelled Metamyelocytes # (Man) Cancelled Myelocytes # (Manual) Cancelled Promyelocytes # (Man) Cancelled Blast Cells # (Man) Cancelled Plasma Cell # (Manual) Cancelled Other Cells # Cancelled Nucleated RBCs # (Man) Cancelled Hypersegmented Neuts Cancelled Hyposegmented Neuts Cancelled Hypogranular Neuts Cancelled Large Granular Lymphs Cancelled # Lrg Granular Lymphs Cancelled Hairy Cells Cancelled Smudge Cells Cancelled Toxic Granulation Cancelled Toxic Vacuolation Cancelled Dohle Bodies Cancelled Pérez Rods Cancelled Platelet Estimate Cancelled Hypogranular Platelets Cancelled Clumped Platelets Cancelled Giant Platelets Cancelled Platelet Satelliting Cancelled RBC Morphology Cancelled Polychromasia Cancelled Hypochromasia Cancelled Poikilocytosis Cancelled Basophilic Stippling Cancelled Anisocytosis Cancelled Microcytosis Cancelled Macrocytosis Cancelled Spherocytes Cancelled Pappenheimer Bodies Cancelled Sickle Cells Cancelled Target Cells Cancelled Tear Drop Cells Cancelled Ovalocytes Cancelled Stomatocytes Cancelled Duffy-Cornell Bodies Cancelled Echinocytes Cancelled Acanthocytes (Spur) Cancelled Rouleaux Cancelled RBC Agglutinates Cancelled Schistocytes Cancelled RBC Morph Comment Cancelled Sezary Cell Cancelled Sodium Potassium Chloride Carbon Dioxide Anion Gap BUN Creatinine Est Cr Clr Drug Dosing Est GFR ( Amer) Est GFR (Non-Af Amer) BUN/Creatinine Ratio Glucose POC Glucose 86 85 Calcium Total Bilirubin AST ALT Alkaline Phosphatase Total Creatine Kinase Troponin I Total Protein Albumin Globulin Albumin/Globulin Ratio 10/09/21 10/09/21 10/09/21 06:03 07:40 07:40 WBC 14.28 H RBC 2.99 L Hgb 9.2 L Hct 27.2 L MCV 91.0 MCH 30.8 MCHC 33.8 RDW Std Deviation 54.1 H RDW Coeff of Sue 16.4 H Plt Count 210 MPV 9.0 Immature Gran % (Auto) 1.1 Neut % (Auto) 88.5 Lymph % (Auto) 4.8 [place] % (Auto) 4.3 Eos % (Auto) 1.2 Baso % (Auto) 0.1 Neut # (Auto) 12.62 H Lymph # (Auto) 0.69 L [place] # (Auto) 0.62 H Eos # (Auto) 0.17 Baso # (Auto) 0.02 Immature Gran # (Auto) 0.16 H Absolute Nucleated RBC Nucleated RBC % (auto) Neutrophils % (Manual) Band Neutrophils % Lymphocytes % (Manual) Prolymphocyte % Reactive Lymphs % (Man) Monocytes % (Manual) Eosinophils % (Manual) Basophils % (Manual) Metamyelocytes % (Man) Myelocytes % (Man) Promyelocytes % (Man) Blast Cells % (Manual) Plasma Cell % (Manual) Other Cells % Nucleated RBC % Neutrophils # (Manual) Band Neutrophils # Total Absolute Neuts Lymphocytes # (Manual) Prolymphocyte # Reactive Lymphs # Total Abs Lymphocytes Monocytes # (Manual) Eosinophils # (Manual) Basophils # (Manual) Metamyelocytes # (Man) Myelocytes # (Manual) Promyelocytes # (Man) Blast Cells # (Man) Plasma Cell # (Manual) Other Cells # Nucleated RBCs # (Man) Hypersegmented Neuts Hyposegmented Neuts Hypogranular Neuts Large Granular Lymphs # Lrg Granular Lymphs Hairy Cells Smudge Cells Toxic Granulation 1+ Toxic Vacuolation Dohle Bodies 1+ Pérez Rods Platelet Estimate Hypogranular Platelets Clumped Platelets Giant Platelets Platelet Satelliting RBC Morphology Polychromasia Hypochromasia Poikilocytosis Basophilic Stippling Anisocytosis Microcytosis Macrocytosis Spherocytes Pappenheimer Bodies Sickle Cells Target Cells Tear Drop Cells Ovalocytes Stomatocytes Duffy-Cornell Bodies Echinocytes Acanthocytes (Spur) Rouleaux RBC Agglutinates Schistocytes RBC Morph Comment Sezary Cell Sodium 130 L Potassium 4.9 Chloride 106 Carbon Dioxide 13 L Anion Gap 11.0 BUN 85 H Creatinine 2.56 H Est Cr Clr Drug Dosing 15.9 Est GFR ( Amer) 20.6 Est GFR (Non-Af Amer) 17.8 BUN/Creatinine Ratio 33.2 H Glucose 79 POC Glucose Calcium 7.1 L Total Bilirubin 0.8 AST 178 H ALT 92 H Alkaline Phosphatase 123 H Total Creatine Kinase 2785 H Troponin I Total Protein 4.7 L Albumin 1.2 L Globulin 3.5 Albumin/Globulin Ratio 0.3 L 10/09/21 10/09/21 07:57 12:02 WBC RBC Hgb Hct MCV MCH MCHC RDW Std Deviation RDW Coeff of Sue Plt Count MPV Immature Gran % (Auto) Neut % (Auto) Lymph % (Auto) [place] % (Auto) Eos % (Auto) Baso % (Auto) Neut # (Auto) Lymph # (Auto) [place] # (Auto) Eos # (Auto) Baso # (Auto) Immature Gran # (Auto) Absolute Nucleated RBC Nucleated RBC % (auto) Neutrophils % (Manual) Band Neutrophils % Lymphocytes % (Manual) Prolymphocyte % Reactive Lymphs % (Man) Monocytes % (Manual) Eosinophils % (Manual) Basophils % (Manual) Metamyelocytes % (Man) Myelocytes % (Man) Promyelocytes % (Man) Blast Cells % (Manual) Plasma Cell % (Manual) Other Cells % Nucleated RBC % Neutrophils # (Manual) Band Neutrophils # Total Absolute Neuts Lymphocytes # (Manual) Prolymphocyte # Reactive Lymphs # Total Abs Lymphocytes Monocytes # (Manual) Eosinophils # (Manual) Basophils # (Manual) Metamyelocytes # (Man) Myelocytes # (Manual) Promyelocytes # (Man) Blast Cells # (Man) Plasma Cell # (Manual) Other Cells # Nucleated RBCs # (Man) Hypersegmented Neuts Hyposegmented Neuts Hypogranular Neuts Large Granular Lymphs # Lrg Granular Lymphs Hairy Cells Smudge Cells Toxic Granulation Toxic Vacuolation Dohle Bodies Pérez Rods Platelet Estimate Hypogranular Platelets Clumped Platelets Giant Platelets Platelet Satelliting RBC Morphology Polychromasia Hypochromasia Poikilocytosis Basophilic Stippling Anisocytosis Microcytosis Macrocytosis Spherocytes Pappenheimer Bodies Sickle Cells Target Cells Tear Drop Cells Ovalocytes Stomatocytes Duffy-Cornell Bodies Echinocytes Acanthocytes (Spur) Rouleaux RBC Agglutinates Schistocytes RBC Morph Comment Sezary Cell Sodium Potassium Chloride Carbon Dioxide Anion Gap BUN Creatinine Est Cr Clr Drug Dosing Est GFR ( Amer) Est GFR (Non-Af Amer) BUN/Creatinine Ratio Glucose POC Glucose 86 81 Calcium Total Bilirubin AST ALT Alkaline Phosphatase Total Creatine Kinase Troponin I Total Protein Albumin Globulin Albumin/Globulin Ratio PG Care Time/CCT Total # of Minutes Spent Total Time Spent with Patient: Total time spent is greater than 50% in coordination of care (as documented) at patient's floor/unit and/or counseling patient: Coding Level of Care Code 12349 Subseq Hosp Care Lvl 3 Diagnoses Acute GI bleeding K92.2 Elevated troponin R77.8 COVID-19 U07.1 Chronic hyponatremia E87.1 Ischemic cardiomyopathy I25.5 CKD (chronic kidney disease) N18.9 Chronic kidney disease stage: unspecified stage CAD (coronary artery disease) I25.10 Hypertension I10 Dyslipidemia E78.5 Asthma J45.909 Acute hyperkalemia E87.5 Rheumatoid arthritis M06.9 Hypothyroidism E03.9 Gastritis K29.70 Abnormal LFTs R94.5 Myopathy G72.9 Acute kidney injury N17.9 Abnormal MRI, lumbar spine R93.7 (1) CKD (chronic kidney disease) Chronic kidney disease stage: unspecified stage Qualified Code(s): N18.9 - Chronic kidney disease, unspecified
[2021-10-09] MEDS: traMADol HCL 50 MG TABLET PO PRN (12:51)
[2021-10-09] MEDS: SUCRALFATE 1 GM/10 ML UDC PO SCH ×3 (12:52→19:47)
[2021-10-09] MEDS: cefTRIAXone SODIUM 1,000 MG in DEXTROSE 5% 50 ML IV SCH (18:16)
[2021-10-09] MEDS: GABAPENTIN 100 MG CAP PO SCH (19:46)
[2021-10-10] MEDS: traMADol HCL 50 MG TABLET PO PRN ×2 (00:26→12:57)
[2021-10-10 00:47] LABS: Appearance Urine Cloudy (Clear); Bacteria Urine Automated Negative (Negative); Bilirubin Urine Negative (Negative); Blood Urine 3+ (Negative); Color Urine Yellow; Glucose Urine UA Negative (Negative); Ketones Urine Negative (Negative); Leukocyte Esterase Urine Negative (Negative); Nitrite Urine Negative (Negative); Protein Urine 1+ (Negative); RBC Urine Automated >30 /hpf (0-4); Specific Gravity Urine 1.017 (1.000-1.030); Urobilinogen Urine Negative (Negative)
[2021-10-10] MEDS: LEVOTHYROXINE SODIUM 100 MCG TABLET PO SCH (05:42)
[2021-10-10 05:50] LABS: Hematocrit (blood only) 29.3 % (37-47); Hemoglobin 9.4 g/dL (12.0-16.0); Mean Corpuscular Hemoglobin 29.7 pg (25-34); Mean Corpuscular Hgb Conc 32.1 g/dL (32-36); Mean Corpuscular Volume 92.4 fL (80-100); Mean Platelet Volume 9.1 fL (7.4-10.4); Platelet Count 227 K/uL (130-400); RDW Coefficient of Variation 16.5 % (11.5-14.5); RDW Standard Deviation 56.1 fL (36.4-46.3); Red Blood Count 3.17 M/uL (4.2-5.4); White Blood Count 11.69 K/uL (4.8-10.8)
[2021-10-10 06:19] LABS: Albumin Level 1.3 gm/dl (3.4-5.0); BUN Creatinine Ratio 35.1 (10-20); Calcium 7.4 mg/dl (8.5-10.1); Creatinine Clr Calc Pharmacy 16.4 ml/min; Est GFR (African American) 20.4 ml/min; Est GFR (Non-African American) 17.6 ml/min; Potassium 5.4 mmol/L (3.5-5.1)
[2021-10-10 06:33] LABS: Albumin Globulin Ratio 0.3 (0.9-2); Bilirubin,Total 0.5 mg/dl (0.2-1); C Reactive Protein 14.5 mg/dl (0-0.29); Globulin 3.8 gm/dl (2.5-4.0); Total Protein 5.1 gm/dl (6.4-8.2)
[2021-10-10] MEDS: PANTOprazole 40 MG in SYRINGE 0 ML IV SCH ×2 (08:00→19:27)
[2021-10-10] MEDS: PSYLLIUM 58.6% POWDER PACKET PO SCH ×2 (08:00→17:11)
[2021-10-10] MEDS: carvediloL 12.5 MG TAB PO SCH ×2 (08:01→17:10)
[2021-10-10] MEDS: FERROUS SULFATE 325 MG TAB PO SCH ×2 (08:01→17:11)
[2021-10-10] MEDS: CLOPIDOGREL BISULFATE 75 MG TAB PO SCH (08:02)
[2021-10-10] MEDS: ASPIRIN 81 MG ECTAB PO SCH (08:02)
[2021-10-10] MEDS: DOCUSATE SODIUM 100 MG CAP PO SCH ×2 (08:02→19:46)
[2021-10-10] MEDS: FLUTICASONE/VILANTEROL 200/25MCG 14 PUFFS/INHALER INH SCH (08:02)
[2021-10-10] MEDS: HYDROXYCHLOROQUINE SULFATE 200 MG TAB PO SCH (08:03)
[2021-10-10] MEDS: methylPREDNISolone 20 MG in SYRINGE 0 ML IV SCH ×2 (08:03→19:27)
[2021-10-10] MEDS: guaiFENesin 600 MG TABCR PO SCH ×2 (08:03→19:29)
[2021-10-10] MEDS: SODIUM CHLORIDE 1 GM TABLET PO SCH (08:04)
[2021-10-10] MEDS: SUCRALFATE 1 GM/10 ML UDC PO SCH ×4 (08:04→19:27)
[2021-10-10] MEDS: ursodioL 300 MG CAP PO SCH ×2 (08:05→19:29)
[2021-10-10] MEDS ORDERED: PATIROMER CALCIUM SORBITEX 8.4 GM PACK PO ONE (08:53)
--- NOTE | 2021-10-10 10:22 | Orthopedic Consultation ---
Date of Consultation October 10, 2021 Assessment & Plan (1) Abnormal MRI, lumbar spine: Was asked to review this patient's imaging in light of her history and impressive findings on scans. I discussed this morning with Dr. Carter reviewing her films and history. Is my impression that the fluid found the proximal disc spaces are in fact degenerative particular when compared to x-rays performed in 2019 demonstrating clear vacuum phenomenon. She does demonstrate severe neuroforaminal disease spondylolisthesis most impressive at L4-5 left greater than right into some degree at L5-S1. However this does not concordant with her deficits at this time is most likely myositis. History of Present Illness Reason for Consultation: Bilateral proximal leg weakness Attending Physician: Raj Carter Allergies Allergy/AdvReac Type Severity Reaction Status Date / Time amoxicillin Allergy Intermediate SEVERE Verified 10/06/21 15:17 RHEUMATOID ARTHRITIC SYMPTOMS clavulanic acid Allergy Intermediate SEVERE Verified 10/06/21 15:17 RHEUMATOID ARTHRITIC SYMPTOMS iodine Allergy Intermediate Stage 1V Verified 10/06/21 15:17 kidney disease lactose Allergy Intermediate Gastrointestinal Verified 10/06/21 15:17 Upset auranofin [From Ridaura] Allergy Mild Rash Verified 09/27/21 13:40 infliximab [From Remicade] Allergy Mild Rash Verified 10/06/21 15:17 Penicillins Allergy Unknown ON MED LIST Verified 10/06/21 15:17 Sulfa (Sulfonamide AdvReac Intermediate "give me Verified 10/06/21 15:17 Antibiotics) anxiety" Home Medications Medication Instructions Recorded Confirmed Type ascorbate calcium (vitamin C) 500 500 mg PO QAM 02/15/19 10/06/21 History mg tablet cyanocobalamin (vitamin B-12) 1,000 mcg PO QAM 02/15/19 10/06/21 History 1,000 mcg capsule ursodiol 300 mg capsule 300 mg PO BID 02/15/19 10/06/21 History biotin 5,000 mcg sublingual tablet 5,000 mcg SL QAM 05/29/19 10/06/21 History methylprednisolone 4 mg tablet See Rx Instructions .ROUTE 05/21/20 10/06/21 History .COMPLEX tab hydroxychloroquine 200 mg tablet 200 mg PO QAM tab 11/16/20 10/06/21 History (Plaquenil) gentamicin sulfate (PF) 60 mg/6 mL 60 mg INHALATION UD PRN #45 ml 12/02/20 10/06/21 Rx intravenous solution albuterol sulfate 90 mcg/actuation 2 puff INH Q4H PRN #8.5 g 07/01/21 10/06/21 Rx aerosol inhaler (Ventolin HFA) diclofenac sodium 1 % topical gel 2 g TOPICAL QID PRN 09/02/21 10/06/21 History (Voltaren Arthritis Pain) atorvastatin 40 mg tablet 80 mg PO QAM #30 tab 09/14/21 10/06/21 Rx clopidogrel 75 mg tablet 75 mg PO QAM #30 tab 09/14/21 10/06/21 Rx psyllium husk 0.52 gram capsule 0.52 g PO BIDM 09/17/21 10/06/21 History (Metamucil) sodium chloride 1 gram tablet 1,000 mg PO DAILY tab 10/04/21 10/06/21 History acetaminophen 325 mg tablet 650 mg PO Q4H PRN 10/06/21 10/06/21 History (Tylenol) bisacodyl 10 mg rectal suppository 10 mg SD DAILY PRN 10/06/21 10/06/21 History carvedilol 12.5 mg tablet 12.5 mg PO BIDM 10/06/21 10/06/21 History dextromethorphan-guaifenesin 30 1 tab PO BID 10/06/21 10/06/21 History mg-600 mg tablet extended [id number] hr (Mucinex DM) docusate sodium 100 mg capsule 100 mg PO BID 10/06/21 10/06/21 History ferrous sulfate 325 mg (65 mg 325 mg PO BIDM 10/06/21 10/06/21 History iron) tablet fluticasone furoate 200 1 inh INHALATION DAILY 10/06/21 10/06/21 History mcg-vilanterol 25 mcg/dose inhalation powder (Breo Ellipta) gabapentin 100 mg capsule 200 mg PO HS 10/06/21 10/06/21 History levothyroxine 100 mcg tablet 100 mcg PO DAILYBB 10/06/21 10/06/21 History loperamide 2 mg tablet (Imodium 2 mg PO Q4H PRN 10/06/21 10/06/21 History A-D) magnesium hydroxide 400 mg/5 mL 30 ml PO DAILY PRN 10/06/21 10/06/21 History oral suspension (Milk of Magnesia) ondansetron 4 mg disintegrating 4 mg PO Q6H PRN 10/06/21 10/06/21 History tablet pantoprazole 40 mg tablet,delayed 40 mg PO QDL 10/06/21 10/06/21 History release polyethylene glycol 3350 17 17 g PO QDL PRN 10/06/21 10/06/21 History gram/dose oral powder (Miralax) sennosides 8.6 mg-docusate sodium 1 tab-cap PO QDL PRN 10/06/21 10/06/21 History 50 mg tablet (Senokot-S) tramadol 50 mg tablet 50 mg PO Q12H PRN 10/06/21 10/06/21 History Patient History Medical History (Updated 10/10/21 @ 05:59 by Raj Carter) Acute kidney injury Anemia Arm pain, right Bilateral sacroiliitis Choledocholithiasis Chronic hyponatremia Chronic kidney disease (CKD), stage III (moderate) Constipation Hypertension Intractable nausea and vomiting Nausea Piriformis syndrome Right hamstring muscle strain Skin tear of lower leg without complication 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 Russ Brambila S/P [facility] Family History Aunt Breast cancer Father Myocardial infarction Family history of diabetes mellitus Brother Family history of diabetes mellitus Brother Family history of diabetes mellitus Other No family history of adverse response to anesthesia Denies family history of Ovarian cancer Prostate cancer Colorectal cancer Social History Smoking Status: Never smoker Second Hand Exposure: No; Do You Dip or Chew Tobacco: No; Hx Alcohol Use: No Hx Substance Use: No Preferred Language: Latvian Communication Ability: Effective Visual Impairment: No Limitations Hearing Ability: Normal 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: No Beliefs That Will Affect Care: None marital status: Current Living Situation: Personal Care Facility Current Living Situation Comment: Lives with and son current occupational status: retired How many Children do You have: 1 Feels Safe at Home: Yes Safety Concerns: Feels Safe At This Time Childhood Exposure to Second-Hand Smoke: Yes caffeine: Yes Dental Care, Regularly: Yes Physical Activity Frequency: 3-4 Times per Week Seatbelt Use: always Sunscreen Use: Yes Assistive Devices: Cane and Glasses Results & Data ([facility]) Vital Signs (Past 12 Hours) Vital Signs Temp Pulse Pulse Resp BP Pulse Ox 10/10/21 04:22 36.5 C 64 18 135/84 97 10/10/21 00:03 65 10/09/21 23:45 36.7 C 70 18 125/77 97
[2021-10-10] MEDS: THIAMINE HCL 200 MG in SODIUM CHLORIDE 0.9% 50 ML IV SCH (10:26)
[2021-10-10] MEDS: guaiFENesin/CODEINE 100MG/10MG 5ML UDC PO PRN ×2 (10:26→23:20)
[2021-10-10] MEDS: BENZONATATE 100 MG CAPSULE PO SCH ×2 (12:58→19:30)
[2021-10-10] MEDS ORDERED: LACTATED RINGER'S 1,000 ML IV SCH (15:15)
[2021-10-10 18:21] LABS: Hematocrit (blood only) 31.5 % (37-47); Hemoglobin 10.2 g/dL (12.0-16.0)
[2021-10-10 18:37] LABS: BUN Creatinine Ratio 35.8 (10-20); Calcium 7.5 mg/dl (8.5-10.1); Creatinine Clr Calc Pharmacy 16.5 ml/min; Est GFR (African American) 20.6 ml/min; Est GFR (Non-African American) 17.8 ml/min
[2021-10-10] MEDS ORDERED: levoFLOXacin/D5W 500 MG/100 ML BAG IV SCH (19:00)
[2021-10-10] MEDS: HEPARIN SOD 5,000 UNIT/0.5 ML VIAL SQ SCH (19:29)
[2021-10-10] MEDS: GABAPENTIN 100 MG CAP PO SCH (19:30)
[2021-10-10] MEDS: ALBUTEROL HFA 8 GM INHALER INH SCH ×2 (19:38→21:31)
--- NOTE | 2021-10-10 20:57 | Hospitalist Progress Note ---
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 CRP is elevated but simply may be due to her COVID illness. CPK improved today with HOLDING her statin and giving steroids. in August during her NSTEMI admission her CPK was <500 I believe that her leg weakness is due to myopathy rather than a lumbar spine issue Dr Law from ortho-spine formally consulted; he reviewed MRI l-spine; findings do not explain her b/l, proximal muscle weakness most obvious cause of her myopathy - statin, as she was placed on lipitor for first time following her NSTEMI other possibility is that of COVID-19 but less likely cont to HOLD statin takes chronic steroids (methylprednisolone) -- will Rx with methylprednisolone 20mg BID; no change on that dose today recheck CPK in am (2) Acute GI bleeding: Plan: concern for H/H stable over last 48 hours cont PPI twice daily cont carafate qid poor candidate for stopping her asa/plavix due to recent NSTEMI and stents repeat CBC am for stability (3) COVID-19: Plan: still no significant pulmonary symptoms other than cough HOWEVER, she is at risk of significant disease progression continue daily labs continue airborne precautions continue pulmonary toilet thus far not a candidate for remdesivir current steroids are primarily for her RA and #1 (4) Abnormal LFTs: Plan: 2nd to statin? holding lipitor repeat LFTs today largely unchanged from prior she does not have a gall bladder if any worsening of LFTs - then RUQ u/s (5) Elevated troponin: Plan: myocardial demand ischemia rather than recurrent NSTEMI (6) Chronic hyponatremia: Plan: stable BMP am cont NaCl 1gm daily (7) Ischemic cardiomyopathy: Plan: EF 25-30% on echo during admission for NSTEMI still appears mildly volume contracted cont BB not YANG or ARB candidate due to CKD (8) CKD (chronic kidney disease): Plan: STAGE 4 baseline CrCl <30 with mild JOAN at this time BMP am (9) CAD (coronary artery disease): Plan: as above (10) Hypertension: Plan: Controlled (11) Dyslipidemia: Plan: holding statin (12) Asthma: Plan: start albuterol 2 puffs QID scheduled (13) Acute hyperkalemia: Plan: 2nd JOAN give dose of veltassa then repeat her BMP later tonight to ensure K has normalized (14) Rheumatoid arthritis: Plan: no active flare at this time cont methylprednisolone cont plaquenil (15) Hypothyroidism: Plan: TSH earlier this month wnl cont synthroid (16) Gastritis: Plan: PPI carafate no pain w/ eating (17) Acute kidney injury: Plan: BMP am likely multifactorial still seems volume contracted despite her ischemic cardiomyopathy LR 50cc/hr x 250cc re-eval in am (18) Abnormal MRI, lumbar spine: Plan: fluid in 2 vertebral levels on MRI likely DJD per both radiology and orthopecics she has chronic low back pain, but no change in her chronic symptoms she has no radicular symptoms she has no distal strength deficits (just proximal as in #1 above) Plan: updated by phone this evening and yesterday night as well Admission and Anticipated Discharge Date Admission Date: October 06, 2021 Subjective patient lying in bed upon arrival - looks sickly and very tired she reports no appetite drinking very little coughing - no sputum no dyspnea at rest no orthopnea no chest pain c/o diarrhea - blames it "on the food"; states she didn't have the diarrhea at [facility] has severe weakness and fatigue doesn't think weakness in legs is any better Review of Systems Review of Systems: gen - no fevers or chills heent - denies loss of taste or smell CV - no chest pain pulm - no hemoptysis GI - no vomiting, but with nausea and diarrhea - prater in place psych - "I'm angry..." - but won't elaborate on why Physical Exam Physical Exam: gen - coughing (bronchial), flat affect, irritable mouth - MM dry neck - no JVD heart - RRR, s1 s2, no murmur lungs - scant rales bases, decreased BS bases, no distress, no wheeze abd - soft NT ND BS+ ext - pulses 2+ b/l, 1+ edema b/l skin - extensive ecchymoses on arms and other locations; optifoams are in place neuro - proximal muscle weakness of hips modestly improved; ankle dorsiflexion/plantarflexion wnl; handgrip 5/5 b/l Results & Data Results & Data ([facility]) Vital Signs (Past 12 Hours) Vital Signs Temp Pulse Pulse Resp BP Pulse Ox 10/10/21 19:52 36.5 C 63 18 138/89 91 10/10/21 19:38 65 18 97 10/10/21 17:16 36.8 C 61 18 139/66 96 10/10/21 15:30 60 10/10/21 10:35 60 Laboratory Results Laboratory Results - last 24 hr 10/10/21 10/10/21 10/10/21 00:30 05:34 05:37 WBC 11.69 H RBC 3.17 L Hgb 9.4 L Hct 29.3 L MCV 92.4 MCH 29.7 MCHC 32.1 RDW Std Deviation 56.1 H RDW Coeff of Sue 16.5 H Plt Count 227 MPV 9.1 Sodium Potassium Chloride Carbon Dioxide Anion Gap BUN Creatinine Est Cr Clr Drug Dosing Est GFR ( Amer) Est GFR (Non-Af Amer) BUN/Creatinine Ratio Glucose POC Glucose 113 H Calcium Total Bilirubin AST ALT Alkaline Phosphatase Total Creatine Kinase C-Reactive Protein Total Protein Albumin Globulin Albumin/Globulin Ratio Urine Color Yellow Urine Appearance Cloudy A Urine pH 5.0 Ur Specific [place] 1.017 Urine Protein 1+ H Urine Glucose (UA) Negative Urine Ketones Negative Urine Blood 3+ H Urine Nitrite Negative Urine Bilirubin Negative Urine Urobilinogen Negative Ur Leukocyte Esterase Negative Urine WBC (Auto) 10-30 H Urine RBC (Auto) >30 H U Hyaline Cast (Auto) 1-5 U Epithel Cells (Auto) 10-20 H Urine Bacteria (Auto) Negative 10/10/21 10/10/21 10/10/21 05:37 18:00 18:00 WBC RBC Hgb 10.2 L Hct 31.5 L MCV MCH MCHC RDW Std Deviation RDW Coeff of Sue Plt Count MPV Sodium 130 L 130 L Potassium 5.4 H 5.0 Chloride 104 103 Carbon Dioxide 14 L 14 L Anion Gap 12.0 H 13.0 H BUN 91 H 92 H Creatinine 2.58 H 2.56 H Est Cr Clr Drug Dosing 16.4 16.5 Est GFR ( Amer) 20.4 20.6 Est GFR (Non-Af Amer) 17.6 17.8 BUN/Creatinine Ratio 35.1 H 35.8 H Glucose 110 H 143 H POC Glucose Calcium 7.4 L 7.5 L Total Bilirubin 0.5 AST 194 H ALT 110 H Alkaline Phosphatase 128 H Total Creatine Kinase 2347 H C-Reactive Protein 14.50 H Total Protein 5.1 L Albumin 1.3 L Globulin 3.8 Albumin/Globulin Ratio 0.3 L Urine Color Urine Appearance Urine pH Ur Specific [place] Urine Protein Urine Glucose (UA) Urine Ketones Urine Blood Urine Nitrite Urine Bilirubin Urine Urobilinogen Ur Leukocyte Esterase Urine WBC (Auto) Urine RBC (Auto) U Hyaline Cast (Auto) U Epithel Cells (Auto) Urine Bacteria (Auto) 10/10/21 19:57 WBC RBC Hgb Hct MCV MCH MCHC RDW Std Deviation RDW Coeff of Sue Plt Count MPV Sodium Potassium Chloride Carbon Dioxide Anion Gap BUN Creatinine Est Cr Clr Drug Dosing Est GFR ( Amer) Est GFR (Non-Af Amer) BUN/Creatinine Ratio Glucose POC Glucose 128 H Calcium Total Bilirubin AST ALT Alkaline Phosphatase Total Creatine Kinase C-Reactive Protein Total Protein Albumin Globulin Albumin/Globulin Ratio Urine Color Urine Appearance Urine pH Ur Specific [place] Urine Protein Urine Glucose (UA) Urine Ketones Urine Blood Urine Nitrite Urine Bilirubin Urine Urobilinogen Ur Leukocyte Esterase Urine WBC (Auto) Urine RBC (Auto) U Hyaline Cast (Auto) U Epithel Cells (Auto) Urine Bacteria (Auto) PG Care Time/CCT Total # of Minutes Spent Total Time Spent with Patient: Total time spent is greater than 50% in coordination of care (as documented) at patient's floor/unit and/or counseling patient: Coding Level of Care Code 73312 Subseq Hosp Care Lvl 3 Diagnoses Myopathy G72.9 Acute GI bleeding K92.2 COVID-19 U07.1 Abnormal LFTs R94.5 Elevated troponin R77.8 Chronic hyponatremia E87.1 Ischemic cardiomyopathy I25.5 CKD (chronic kidney disease) N18.9 Chronic kidney disease stage: unspecified stage CAD (coronary artery disease) I25.10 Hypertension I10 Dyslipidemia E78.5 Asthma J45.909 Acute hyperkalemia E87.5 Rheumatoid arthritis M06.9 Hypothyroidism E03.9 Gastritis K29.70 Acute kidney injury N17.9 Abnormal MRI, lumbar spine R93.7 (1) CKD (chronic kidney disease) Chronic kidney disease stage: unspecified stage Qualified Code(s): N18.9 - Chronic kidney disease, unspecified
[2021-10-11] MEDS: LEVOTHYROXINE SODIUM 100 MCG TABLET PO SCH (06:12)
[2021-10-11] MEDS: ACETAMINOPHEN 325 MG TAB PO PRN (06:18)
[2021-10-11 06:22] LABS: Hematocrit (blood only) 29.2 % (37-47); Hemoglobin 9.3 g/dL (12.0-16.0); Mean Corpuscular Hemoglobin 29.4 pg (25-34); Mean Corpuscular Hgb Conc 31.8 g/dL (32-36); Mean Corpuscular Volume 92.4 fL (80-100); Mean Platelet Volume 9.7 fL (7.4-10.4); Platelet Count 231 K/uL (130-400); RDW Coefficient of Variation 16.4 % (11.5-14.5); RDW Standard Deviation 55.1 fL (36.4-46.3); Red Blood Count 3.16 M/uL (4.2-5.4); White Blood Count 11.02 K/uL (4.8-10.8)
[2021-10-11 06:44] LABS: Immature Granulocytes # (auto) 0.05 K/uL (0.00-0.02); Immature Granulocytes % (auto) 0.5 %; Lymphocytes # (auto) 0.32 K/uL (1.2-3.4); Lymphocytes % (auto) 2.9 %; Monocytes # (auto) 0.39 K/uL (0.11-0.59); Monocytes % (auto) 3.5 %; Neutrophils # (auto) 10.26 K/uL (1.4-6.5); Neutrophils % (auto) 93.1 %
[2021-10-11 06:53] LABS: Albumin Level 1.3 gm/dl (3.4-5.0); BUN Creatinine Ratio 36.8 (10-20); C Reactive Protein 7.64 mg/dl (0-0.29); Calcium 7.7 mg/dl (8.5-10.1); Creatinine Clr Calc Pharmacy 16.8 ml/min; Est GFR (African American) 21.2 ml/min; Est GFR (Non-African American) 18.3 ml/min; Potassium 4.9 mmol/L (3.5-5.1)
[2021-10-11 07:07] LABS: Albumin Globulin Ratio 0.4 (0.9-2); Bilirubin,Total 0.7 mg/dl (0.2-1); Globulin 3.5 gm/dl (2.5-4.0); Total Protein 4.8 gm/dl (6.4-8.2)
[2021-10-11] MEDS: ALBUTEROL HFA 8 GM INHALER INH SCH ×2 (07:19→10:13)
[2021-10-11] MEDS: CLOPIDOGREL BISULFATE 75 MG TAB PO SCH (08:37)
[2021-10-11] MEDS: BENZONATATE 100 MG CAPSULE PO SCH ×3 (08:38→20:36)
[2021-10-11] MEDS: ASPIRIN 81 MG ECTAB PO SCH (08:38)
[2021-10-11] MEDS: HYDROXYCHLOROQUINE SULFATE 200 MG TAB PO SCH (08:38)
[2021-10-11] MEDS: carvediloL 12.5 MG TAB PO SCH ×2 (08:39→15:36)
[2021-10-11] MEDS: FERROUS SULFATE 325 MG TAB PO SCH ×2 (08:39→15:37)
[2021-10-11] MEDS: SODIUM CHLORIDE 1 GM TABLET PO SCH (08:40)
[2021-10-11] MEDS: ursodioL 300 MG CAP PO SCH ×2 (08:40→20:34)
[2021-10-11] MEDS: PSYLLIUM 58.6% POWDER PACKET PO SCH (08:41)
[2021-10-11] MEDS: guaiFENesin 600 MG TABCR PO SCH ×2 (08:41→20:36)
[2021-10-11] MEDS: DOCUSATE SODIUM 100 MG CAP PO SCH (08:42)
[2021-10-11] MEDS: FLUTICASONE/VILANTEROL 200/25MCG 14 PUFFS/INHALER INH SCH (08:42)
[2021-10-11] MEDS: PANTOprazole 40 MG in SYRINGE 0 ML IV SCH ×2 (08:43→20:36)
[2021-10-11] MEDS: methylPREDNISolone 20 MG in SYRINGE 0 ML IV SCH ×2 (08:43→20:37)
[2021-10-11] MEDS: HEPARIN SOD 5,000 UNIT/0.5 ML VIAL SQ SCH ×2 (08:43→20:36)
[2021-10-11] MEDS: SUCRALFATE 1 GM/10 ML UDC PO SCH ×4 (08:44→20:36)
[2021-10-11] MEDS: THIAMINE HCL 200 MG in SODIUM CHLORIDE 0.9% 50 ML IV SCH (08:45)
--- NOTE | 2021-10-11 09:51 | CT Scan Report ---
ABDOMEN AND PELVIS CT WITHOUT CONTRAST CT DOSE: 1058.45 mGycm HISTORY: persistent acute renal failure, hematuria TECHNIQUE: Multiaxial CT images of the abdomen and pelvis were performed without contrast. A dose lo wering technique was utilized adhering to the principles of ALARA. COMPARISON STUDY: Abdomen and pelvis CT 06/12/2019. FINDINGS: There are few patchy bibasilar groundglass airspace opacities consistent with a viral pneum onia. Small bilateral pleural effusions. There is also a trace pericardial effusion. There is a moder ate hiatus hernia. No pneumoperitoneum. No pneumatosis. Old left pubic ring fractures. Levoscoliosis of the lumbar spine. There are old bilateral rib fractures. Moderate body wall edema. The bladder is decompressed by a Gibbons catheter. Trace pelvic free fluid. The uterus is surgically absent. Mild thic kening within the rectum. There are suboptimal evaluation for bowel pathology due to the lack of intr avenous and oral contrast. There is mild thickening within the decompressed distal transverse colon a nd descending colon. This is consistent with a nonspecific colitis. Colonic diverticulosis. No eviden ce for acute epiglottitis. A few fluid-filled nondilated loops of small bowel seen throughout the abd omen. No evidence for bowel obstruction. Pneumobilia. This remains unchanged. Prior cholecystectomy. The unenhanced liver, spleen, and adrenal glands are unremarkable. No hydronephrosis. The unenhanced pancreas is within normal limits. No retroperitoneal lymphadenopathy. Normal caliber abdominal aorta. IMPRESSION: 1. Mild thickening of the distal transverse colon and descending colon consistent with a nonspecific colitis. This could be due to an infectious, inflammatory, or less likely ischemic process. 2. Patchy groundglass bibasilar densities likely representing a viral pneumonia. 3. No evidence for bowel obstruction. 4. Postoperative changes as described above. 5. Persistent pneumobilia. 6. Mild rectal wall thickening consistent with a nonspecific proctitis. 7. Small bilateral pleural effusions. 8. Additional findings as described above. ACT 112: Negative or not required by law. Electronically signed by: Robbin Ortiz M.D. 10/11/2021 9:50 AM
[2021-10-11] MEDS ORDERED: ALBUTEROL HFA 8 GM INHALER INH PRN (14:12)
--- NOTE | 2021-10-11 15:04 | Hospitalist Progress Note ---
Date of Service October 11, 2021 Assessment & Plan (1) Myopathy: Plan: vs myositis. CRP is elevated but simply may be due to her COVID illness. CPK improved once again today with HOLDING her statin and giving steroids. in August during her NSTEMI admission her CPK was <500 I believe that her leg weakness is due to myopathy rather than a lumbar spine issue Her leg weakness is b/l and mainly proximal (distal strength is wnl) Dr Law from ortho-spine formally consulted; he reviewed MRI l-spine; findings do not explain her b/l, proximal muscle weakness most obvious cause of her myopathy - statin, as she was placed on lipitor for first time following her NSTEMI other possibility is that of COVID-19 but less likely she states her b/l leg weakness started upon her admission to [facility] several weeks ago cont to HOLD statin - placed on allergy list takes chronic steroids (methylprednisolone) -- cont to Rx with methylprednisolone 20mg BID; no change on that dose today recheck CPK in am (2) Acute GI bleeding: Plan: concern for at time of admission but no overt GI bleeding during the visit H/H stable over last 72 hours cont PPI twice daily cont carafate qid poor candidate for stopping her asa/plavix due to recent NSTEMI and stents repeat CBC am for stability (3) COVID-19: Plan: on lung cuts of CT today there is b/l pneumonia c/w COVID pneumonia fortunately still not hypoxia - HOWEVER, she is at risk of significant disease progression continue daily labs continue airborne precautions continue pulmonary toilet but not really doing so; laying on back, not getting out of bed because of weakness, and can't lay on side or prone due to severe RA/DJD not a candidate for remdesivir due to lack of hypoxia and ARF current steroids are primarily for her RA and #1 (4) Abnormal LFTs: Plan: 2nd to statin; can't rule out COVID-19 playing a role as well holding lipitor repeat LFTs today improving she does not have a gall bladder liver on CT today appears largely normal (5) Elevated troponin: Plan: myocardial demand ischemia rather than recurrent NSTEMI (6) Chronic hyponatremia: Plan: stable BMP am hold NaCl while giving IV fluids (7) Ischemic cardiomyopathy: Plan: EF 25-30% on echo during admission for NSTEMI overall she is total body fluid overloaded (anasarca) from ARF, CHF and severe hypoalbuminemia but is intra-vascularly dry cont BB not YANG or ARB candidate due to CKD (8) CKD (chronic kidney disease): Plan: STAGE 4 baseline CrCl <30 with JOAN at this time along with low bicarb spoke with Dr Arellano from [facility]ph[facility] who knows her well from clinic we discussed her volume status, JOAN, and low bicarb start bicarb drip at 75cc/hr cautiously with repeat BMP am Dr Arellano to see patient in consult tomorrow (9) CAD (coronary artery disease): Plan: as above (10) Hypertension: Plan: Controlled (11) Dyslipidemia: Plan: statin stopped (12) Asthma: Plan: albuterol 2 puffs QID prn use breo in [place]re[place] of advair due to formulary restrictions offered to call to have him bring in advair from home - did not allow me to contact him (13) Acute hyperkalemia: Plan: 2nd JOAN gave dose of veltassa and improved today BMP am (14) Rheumatoid arthritis: Plan: no active flare at this time cont methylprednisolone cont plaquenil (15) Hypothyroidism: Plan: TSH earlier this month wnl cont synthroid (16) Gastritis: Plan: PPI carafate no pain w/ eating (17) Acute kidney injury: Plan: BMP am likely multifactorial see above in "CKD" start bicarb infusion - 75cc/hr formal consult to Dr Arellano CT a/p today without signs of obstruction (18) Abnormal MRI, lumbar spine: Plan: fluid in 2 vertebral levels on MRI likely DJD per both radiology and orthopecics she has chronic low back pain, but no change in her chronic symptoms she has no radicular symptoms she has no distal strength deficits (just proximal as in #1 above) (19) Severe protein-calorie malnutrition: Plan: albumin of <1.5 NO APPETITE COVID-19, depression (she denies such but states she is "angry"), recent cardiac issues, etc - all contributing to anorexia 3rd spacing due to low albumin steroids might help appetite Plan: updated by phone twice this weekend again pt would NOT let me contact her today to give update, nor the nursing staff I plan to pass her care to DR Gong who knows her from her prior hospital stay Admission and Anticipated Discharge Date Admission Date: October 06, 2021 Subjective pt very upset today during the visit complaining about the food and lack of choices, upset we do not have sukhdev on formulary, accusing the care team that the reason we are keeping her hospitalized is because "the hospital can make money off of COVID" upset her tramadol was held stating "I take it every day - tylenol doesn't help" states her weakness is unchanged cough is worse today mildly more dyspneic today - but not requiring O2 I offered to call her and ask him (or another family member) to bring her advair and perhaps food from the outside that she could enjoy - she refused to let me call her , stating "I'll call him myself." she then stated "why did you take me out of [facility] - I was doing fine there." towards the end of our discussion she stated she wanted a different hospitalist to care for her. finally, we talked about things she could do to help prevent her COVID pneumonia - incentive ac, laying on her side, etc she stated she couldn't lay on her side, and did not seem committed to doing pulmonary toilet. Review of Systems Review of Systems: gen - no fevers or chills; weakness - severe; severe anorexia CV - no cp, no orthopnea pulm - cough, dyspnea GI - no abd pain; no nausea, ongoing diarrhea neuro - ongoing b/l leg weakness Physical Exam Physical Exam: gen - coughing (bronchial), flat affect, very irritable mouth - MM dry neck - no JVD heart - RRR, s1 s2, no murmur lungs - b/l rales bases - worse today; decreased BS bases, no distress, no wheeze abd - soft NT ND BS+ ext - pulses 2+ b/l, 1-2+ edema b/l of arms & legs skin - extensive ecchymoses on arms and other locations; optifoams are in place in multiple locations neuro - proximal muscle weakness of hips again modestly improved; ankle dorsiflexion/plantarflexion wnl; handgrip 5/5 b/l psych - oriented to person, place; irritable Results & Data Results & Data ([facility]) Vital Signs (Past 12 Hours) Vital Signs Temp Pulse Pulse Resp BP Pulse Ox 10/11/21 15:02 66 10/11/21 10:14 65 16 94 10/11/21 09:59 64 10/11/21 07:20 63 16 97 10/11/21 04:54 36.6 C 63 18 134/71 96 10/11/21 04:31 61 Laboratory Results Laboratory Results - last 24 hr 10/10/21 10/10/21 10/10/21 18:00 18:00 19:57 WBC RBC Hgb 10.2 L Hct 31.5 L MCV MCH MCHC RDW Std Deviation RDW Coeff of Sue Plt Count MPV Immature Gran % (Auto) Neut % (Auto) Lymph % (Auto) [place] % (Auto) Eos % (Auto) Baso % (Auto) Neut # (Auto) Lymph # (Auto) [place] # (Auto) Eos # (Auto) Baso # (Auto) Immature Gran # (Auto) Sodium 130 L Potassium 5.0 Chloride 103 Carbon Dioxide 14 L Anion Gap 13.0 H BUN 92 H Creatinine 2.56 H Est Cr Clr Drug Dosing 16.5 Est GFR ( Amer) 20.6 Est GFR (Non-Af Amer) 17.8 BUN/Creatinine Ratio 35.8 H Glucose 143 H POC Glucose 128 H Calcium 7.5 L Total Bilirubin AST ALT Alkaline Phosphatase Total Creatine Kinase C-Reactive Protein Total Protein Albumin Globulin Albumin/Globulin Ratio 10/11/21 10/11/21 05:45 05:45 WBC 11.02 H RBC 3.16 L Hgb 9.3 L Hct 29.2 L MCV 92.4 MCH 29.4 MCHC 31.8 L RDW Std Deviation 55.1 H RDW Coeff of Sue 16.4 H Plt Count 231 MPV 9.7 Immature Gran % (Auto) 0.5 Neut % (Auto) 93.1 Lymph % (Auto) 2.9 [place] % (Auto) 3.5 Eos % (Auto) 0.0 Baso % (Auto) 0.0 Neut # (Auto) 10.26 H Lymph # (Auto) 0.32 L [place] # (Auto) 0.39 Eos # (Auto) 0.00 Baso # (Auto) 0.00 Immature Gran # (Auto) 0.05 H Sodium 132 L Potassium 4.9 Chloride 105 Carbon Dioxide 12 L Anion Gap 15.0 H BUN 92 H Creatinine 2.50 H Est Cr Clr Drug Dosing 16.8 Est GFR ( Amer) 21.2 Est GFR (Non-Af Amer) 18.3 BUN/Creatinine Ratio 36.8 H Glucose 121 H POC Glucose Calcium 7.7 L Total Bilirubin 0.7 AST 134 H ALT 98 H Alkaline Phosphatase 110 Total Creatine Kinase 1452 H C-Reactive Protein 7.64 H Total Protein 4.8 L Albumin 1.3 L Globulin 3.5 Albumin/Globulin Ratio 0.4 L Diagnostic Findings Abdomen/Pelvis CT 10/11/21 07:[address] WITHOUT CONTRAST CT DOSE: 1058.45 mGycm HISTORY: persistent acute renal failure, hematuria TECHNIQUE: Multiaxial CT images of the abdomen and pelvis were performed without contrast. A dose lowering technique was utilized adhering to the principles of ALARA. COMPARISON STUDY: Abdomen and pelvis CT 06/12/2019. FINDINGS: There are few patchy bibasilar groundglass airspace opacities consistent with a viral pneumonia. Small bilateral pleural effusions. There is also a trace pericardial effusion. There is a moderate hiatus hernia. No pneumoperitoneum. No pneumatosis. Old left pubic ring fractures. Levoscoliosis of the lumbar spine. There are old bilateral rib fractures. Moderate body wall edema. The bladder is decompressed by a Gibbons catheter. Trace pelvic free fluid. The uterus is surgically absent. Mild thickening within the rectum. There are suboptimal evaluation for bowel pathology due to the lack of intravenous and oral contrast. There is mild thickening within the decompressed distal trans verse colon and descending colon. This is consistent with a nonspecific colitis. Colonic diverticulosis. No evidence for acute epiglottitis. A few fluid-filled nondilated loops of small bowel seen throughout the abdomen. No evidence for bowel obstruction. Pneumobilia. This remains unchanged. Prior cholecystectomy. The unenhanced liver, spleen, and adrenal glands are unremarkable. No hydronephrosis. The unenhanced pancreas is within normal limits. No retroperitoneal lymphadenopathy. Normal caliber abdominal aorta. IMPRESSION: 1. Mild thickening of the distal transverse colon and descending colon consistent with a nonspecific colitis. This could be due to an infectious, inflammatory, or less likely ischemic process. 2. Patchy groundglass bibasilar densities likely representing a viral pneumonia. 3. No evidence for bowel obstruction. 4. Postoperative changes as described above. 5. Persistent pneumobilia. 6. Mild rectal wall thickening consistent with a nonspecific proctitis. 7. Small bilateral pleural effusions. 8. Additional findings as described above. ACT 112: Negative or not required by law. Electronically signed by: Robbin Ortiz M.D. 10/11/2021 9:50 AM PG Care Time/CCT Total # of Minutes Spent Total Time Spent with Patient: Total time spent is greater than 50% in coordination of care (as documented) at patient's floor/unit and/or counseling patient: Coding Level of Care Code 49830 Subseq Hosp Care Lvl 3 Diagnoses Myopathy G72.9 Acute GI bleeding K92.2 COVID-19 U07.1 Abnormal LFTs R94.5 Elevated troponin R77.8 Chronic hyponatremia E87.1 Ischemic cardiomyopathy I25.5 CKD (chronic kidney disease) N18.9 Chronic kidney disease stage: unspecified stage CAD (coronary artery disease) I25.10 Hypertension I10 Dyslipidemia E78.5 Asthma J45.909 Acute hyperkalemia E87.5 Rheumatoid arthritis M06.9 Hypothyroidism E03.9 Gastritis K29.70 Acute kidney injury N17.9 Abnormal MRI, lumbar spine R93.7 Severe protein-calorie malnutrition E43 (1) CKD (chronic kidney disease) Chronic kidney disease stage: unspecified stage Qualified Code(s): N18.9 - Chronic kidney disease, unspecified
[2021-10-11] MEDS: traMADol HCL 50 MG TABLET PO SCH ×2 (15:35→20:36)
[2021-10-11] MEDS ORDERED: STAT IV STA (17:05)
[2021-10-11] MEDS: GABAPENTIN 100 MG CAP PO SCH (20:34)
[2021-10-11] MEDS: SODIUM BICARBONATE 8.4% 150 MEQ in DEXTROSE 5% 1,000 ML IV SCH (20:34)
[2021-10-11] MEDS: guaiFENesin/CODEINE 100MG/10MG 5ML UDC PO PRN (20:36)
[2021-10-12] MEDS: LEVOTHYROXINE SODIUM 100 MCG TABLET PO SCH (06:03)
[2021-10-12 08:12] LABS: Hematocrit (blood only) 28.1 % (37-47); Hemoglobin 9.2 g/dL (12.0-16.0); Mean Corpuscular Hemoglobin 29.8 pg (25-34); Mean Corpuscular Hgb Conc 32.7 g/dL (32-36); Mean Corpuscular Volume 90.9 fL (80-100); Mean Platelet Volume 9.4 fL (7.4-10.4); Platelet Count 207 K/uL (130-400); RDW Coefficient of Variation 16.2 % (11.5-14.5); RDW Standard Deviation 54.1 fL (36.4-46.3); Red Blood Count 3.09 M/uL (4.2-5.4); White Blood Count 9.46 K/uL (4.8-10.8)
[2021-10-12] MEDS: PANTOprazole 40 MG in SYRINGE 0 ML IV SCH ×2 (08:23→22:08)
[2021-10-12] MEDS: HYDROXYCHLOROQUINE SULFATE 200 MG TAB PO SCH (08:24)
[2021-10-12] MEDS: HEPARIN SOD 5,000 UNIT/0.5 ML VIAL SQ SCH ×2 (08:24→22:06)
[2021-10-12] MEDS: methylPREDNISolone 20 MG in SYRINGE 0 ML IV SCH ×2 (08:24→22:08)
[2021-10-12] MEDS: traMADol HCL 50 MG TABLET PO SCH ×3 (08:25→22:01)
[2021-10-12] MEDS: carvediloL 12.5 MG TAB PO SCH ×2 (08:25→16:29)
[2021-10-12] MEDS: CLOPIDOGREL BISULFATE 75 MG TAB PO SCH (08:27)
[2021-10-12] MEDS: ASPIRIN 81 MG ECTAB PO SCH (08:27)
[2021-10-12] MEDS: BENZONATATE 100 MG CAPSULE PO SCH ×3 (08:28→22:06)
[2021-10-12] MEDS: ursodioL 300 MG CAP PO SCH ×2 (08:28→22:08)
[2021-10-12] MEDS: FERROUS SULFATE 325 MG TAB PO SCH ×2 (08:29→16:29)
[2021-10-12 08:30] LABS: Albumin Level 1.4 gm/dl (3.4-5.0); BUN Creatinine Ratio 42.7 (10-20); C Reactive Protein 3.76 mg/dl (0-0.29); Calcium 7.7 mg/dl (8.5-10.1); Creatinine Clr Calc Pharmacy 18.3 ml/min; Est GFR (African American) 23.5 ml/min; Est GFR (Non-African American) 20.3 ml/min
[2021-10-12] MEDS: FLUTICASONE/VILANTEROL 200/25MCG 14 PUFFS/INHALER INH SCH (08:30)
[2021-10-12] MEDS: SUCRALFATE 1 GM/10 ML UDC PO SCH ×4 (08:30→22:08)
[2021-10-12] MEDS: guaiFENesin 600 MG TABCR PO SCH ×2 (08:31→22:06)
[2021-10-12] MEDS: THIAMINE HCL 200 MG in SODIUM CHLORIDE 0.9% 50 ML IV SCH (08:31)
--- NOTE | 2021-10-12 08:38 | Hospitalist Progress Note ---
Date of Service October 12, 2021 Assessment & Plan (1) Myopathy: Plan: vs myositis. CRP is elevated but simply may be due to her COVID illness. CPK improved once again today with HOLDING her statin and giving steroids. in August during her NSTEMI admission her CPK was <500 leg weakness is due to myopathy ortho-spine formally consulted; reviewed MRI l-spine; findings do not explain her b/l, proximal muscle weakness, which reinforces dx of statin myopathy as she was placed on lipitor for first time following her NSTEMI cont to HOLD statin - placed on allergy list takes chronic steroids (methylprednisolone) -- cont to Rx with methylprednisolone 20mg BID; no change on that dose (2) Acute GI bleeding: Plan: hgb stable transfused 2 u prbc during stay end of August, was scoped at that time with EGD showing gastritis, cont PPI twice daily cont carafate qid poor candidate for stopping her asa/plavix due to recent NSTEMI and stents (3) COVID-19: Plan: CT chest 10/11/21 b/l pneumonia c/w COVID pneumonia still not hypoxic - continue airborne precautions continue pulmonary toilet not a candidate for remdesivir due to lack of hypoxia and ARF current steroids are primarily for her RA and #1 (4) Abnormal LFTs: Plan: 2nd to statin; can't rule out COVID-19 playing a role as well holding lipitor repeat LFTs today improving she does not have a gall bladder liver on CT today appears largely normal (5) Elevated troponin: Plan: myocardial demand ischemia rather than recurrent NSTEMI (6) Chronic hyponatremia: Plan: stable (7) Ischemic cardiomyopathy: Plan: EF 25-30% on echo during admission for NSTEMI overall she is total body fluid overloaded (anasarca) from ARF, CHF and severe hypoalbuminemia but is intra-vascularly dry cont BB not YANG or ARB candidate due to CKD (8) CKD (chronic kidney disease): Plan: STAGE 4 baseline CrCl <30 with JOAN resolving remains with lower bicarbonate did have elevated K+ given miguel a spoke with Dr Arellano from [facility] Nephro who knows her well from clinic discussed her volume status, JOAN, and remains on bicarb drip Dr Arellano did see patient in consult 10/12/21 (9) CAD (coronary artery disease): Plan: as above (10) Hypertension: Plan: Controlled (11) Asthma: Plan: albuterol 2 puffs QID prn use breo in [place]re[place] of advair due to formulary restrictions offered to call to have him bring in advair from home - did not allow me to contact him (12) Rheumatoid arthritis: Plan: no active flare at this time cont methylprednisolone cont plaquenil (13) Hypothyroidism: Plan: TSH earlier this month wnl cont synthroid (14) Abnormal MRI, lumbar spine: Plan: fluid in 2 vertebral levels on MRI likely DJD per both radiology and orthopecics she has chronic low back pain, but no change in her chronic symptoms she has no radicular symptoms she has no distal strength deficits (just proximal as in #1 above) (15) Severe protein-calorie malnutrition: Plan: albumin of <1.5 NO APPETITE COVID-19, depression (she denies such but states she is "angry"), recent cardiac issues, etc - all contributing to anorexia 3rd spacing due to low albumin steroids might help appetite Admission and Anticipated Discharge Date Admission Date: October 06, 2021 Subjective Patient was a bit withdrawn today she had multiple somatic complaints, complains about the food, complains about pain, planes about her swelling. I discussed st rategies on how to provide better food is her nutritional status is a large impact on her peripheral edema. It did help tremendously to Dr. Cantor saw the patient, Dr. Arellano is a long-term caregiver to her and the patient seems more calm down after speaking with her. Patient remains mildly short of breath but is not with hypoxemia from her Covid infection Review of Systems Review of Systems: Mild distress and moderate fatigue no headache, no visual changes no speech or swallowing issues no chest pain, pressure or palpitations Mildly shortness of breath, nonproductive cough no abdominal pain, nausea or vomiting, previously had diarrhea and outside of bowel movement for 2 days no dysuria, hematuria or frequency no focal joint pain significant peripheral swelling using of serous fluid from wounds on her arms and legs no back pain, CVA tenderness or radicular pain Multiple areas of bruises in different stages of healing no focal signs of weakness or numbness or altered sensation overall extremely weak no complaints of anxiety or depression.. Physical Exam Physical Exam: The patient appeared malnourished and now chronically ill Vital signs as documented. Head exam is normocephalic atraumatic Neck is without JVD, thyromegaly, or carotid bruits. Lungs are diminished at the bases but no crackles that are typical for Covid infections Cardiac exam, Rhythm is regular.. Systolic ejection murmur is heard Abdominal exam reveals normal bowel sounds, soft non tender, no masses Extremities are 1+ edematous both arms and legs some leaking of serous fluid from her wounds Neurologic exam is alert and oriented, no focal loss of strength or sensation Skin is with raised bruises on arms and legs from nutritional deficiencies and anti platelet aggregation medication Psychologically is with concerns for frustration and anger from recent hospital stay Results & Data Results & Data ([facility]) Vital Signs (Past 12 Hours) Vital Signs Temp Pulse Pulse Resp BP Pulse Ox 10/12/21 06:00 97.9 F 68 17 154/79 H 95 10/11/21 23:09 97.9 F 70 18 135/76 96 10/11/21 22:19 66 10/11/21 20:32 98.1 F 73 16 154/76 H 96 PG Care Time/CCT Total # of Minutes Spent Total Time Spent with Patient: Total time spent is greater than 50% in coordination of care (as documented) at patient's floor/unit and/or counseling patient: Coding Level of Care Code 36200 Subseq Hosp Care Lvl 3 Diagnoses Myopathy G72.9 Acute GI bleeding K92.2 COVID-19 U07.1 Abnormal LFTs R94.5 Elevated troponin R77.8 Chronic hyponatremia E87.1 Ischemic cardiomyopathy I25.5 CKD (chronic kidney disease) N18.9 Chronic kidney disease stage: unspecified stage CAD (coronary artery disease) I25.10 Associated angina: without angina Coronary Disease-Associated Artery/Lesion type: [place] artery [place] vs. transplanted heart: [place] heart Hypertension I10 Asthma J45.909 Rheumatoid arthritis M06.9 Hypothyroidism E03.9 Abnormal MRI, lumbar spine R93.7 Severe protein-calorie malnutrition E43 (1) CAD (coronary artery disease) Associated angina: without angina Coronary Disease-Associated Artery/Lesion type: [place] artery [place] vs. transplanted heart: [place] heart Qualified Code(s): I25.10 - Atherosclerotic heart disease of [place] coronary artery without angina pectoris (2) CKD (chronic kidney disease) Chronic kidney disease stage: unspecified stage Qualified Code(s): N18.9 - Chronic kidney disease, unspecified
[2021-10-12 08:45] LABS: Albumin Globulin Ratio 0.4 (0.9-2); Bilirubin,Total 0.4 mg/dl (0.2-1); Globulin 3.4 gm/dl (2.5-4.0); Total Protein 4.8 gm/dl (6.4-8.2)
[2021-10-12 08:54] LABS: Echinocytes 1+; Immature Granulocytes # (auto) 0.03 K/uL (0.00-0.02); Immature Granulocytes % (auto) 0.3 %; Lymphocytes # (auto) 0.54 K/uL (1.2-3.4); Lymphocytes % (auto) 5.7 %; Monocytes # (auto) 0.26 K/uL (0.11-0.59); Monocytes % (auto) 2.7 %; Neutrophils # (auto) 8.63 K/uL (1.4-6.5); Neutrophils % (auto) 91.3 %; Toxic Granulation 1+
[2021-10-12] MEDS: SODIUM BICARBONATE 8.4% 150 MEQ in DEXTROSE 5% 1,000 ML IV SCH (10:12)
--- NOTE | 2021-10-12 10:44 | Nephrology Consultation ---
Date of Consultation October 12, 2021 Assessment & Plan (1) Acute kidney injury: (2) Anemia due to blood loss, acute: (3) Acute hyperkalemia: (4) Chronic hyponatremia: (5) Severe protein-calorie malnutrition: (6) Myopathy: (7) Stage 3b chronic kidney disease: 65-year-old female with multiple complex comorbidities including coronary artery disease, stage IV CKD, rheumatoid arthritis, hypertension, chronic hyponatremia admitted with generalized weakness, myopathy, COVID pneumonia. Renal function has been progressively worsening with decreased urine output in the setting of a profound hypoalbuminemia and peripheral edema. Disproportionately elevated BUN also could be secondary to combination of intravascular volume depletion, steroid and GI however decreased urine output over last 2 days has been of concern. Clinically she does not look like significantly uremic, denied any nausea, vomiting, no confusion. Appetite has been poor which she blames to hospital food which she is not interested. She most likely intravascularly volume depleted with hypoalbuminemia. -- Continue on D5W with bicarbonate at 80 mL/hour -- encourage increased protein intake, continue on boost -- monitor renal function and electrolyte, acute it intake and output. -- dose medications for GFR less than 30 Will follow Thank you for allowing me to participate in your patient's care. It was a pleasure to see Angelika History of Present Illness Reason for Consultation: acute kidney injury with history of advanced CKD. Attending Physician: Ariel Gong MD History of Present Illness Dev is a 75-year-old female with complex past medical history including stage IV CKD, coronary artery disease recent non STEMI, rheumatoid arthritis admitted to the hospital with generalized weakness and COVID pneumonia. Nephrology consult was requested for management of JOAN and electrolyte abnormality. In EMR records are reviewed in detail during patient's visit. Angelika was admitted to [facility] in August from 09/02/21 - 09/14/21 with NSTEMI, JOAN, anemia 2/2 GIB with gastritis when she presented with chest pain, fatigue, and SOB x 2 days. EF 25-30% Had cath and PCI D1 and LAD. Since discharge she has been at [facility]. She presented to ER on 10/06/2021 with generalized weakness and profound bilateral lower extremity weakness and cough. On admission she was found to have elevated CPK, profound anemia with hemoglobin of 6.5 and tested positive for COVID-19. Chest x-ray x-rays suggestive of changes consistent with viral pneumonia. However, she was not hypoxic. She received blood transfusion and hemoglobin improved and stayed around 9-10. Since cardiac catheterization she has been on dual antiplatelet therapy which was continued considering recent stent placement. She has been clinically declining throughout her hospital stay with progressive worsening of renal function, BUN currently 98 and creatinine 2.3. Albumin has been 1.4-1.5 with peripheral edema. has metabolic acidosis with bicarb 13. Prior Urinalysis negative for hematuria, proteinuria, pyuria or microalbuminuria although urinalysis this admission showed some proteinuria and hematuria which is probably secondary to Gibbons catheter trauma. imaging was negative for postrenal obstruction. Initially she was also found to have urinary retention, Gibbons catheter was placed with decent urine output however over last few days her urine output has been low. Her oxygen saturation continues to be normal on room air. Has stage 4 CKD b/l cr variable from 1.6- 2.0, CKD most likely secondary to chronic interstitial disease with history of chronic heavy NSAID use.Has h/o chronic NSAID use for RA and was on Meloxicam. Hypertension for several years, well controlled at home although office blood pressure generally elevated. Has history of RA and Sjogrens syndrome , on palquanil, Arava and prednisone, developed rash with Inflectra. Non smoker, has strong family H/O of CKD. Has chronic hyponatremia, Prior mammogram, Colonoscopy, chest x-ray and sinus CT was unremarkable. Has history of a biliary colic with history of biliary sludge, had ERCP before, follows with GI. Was on Lasix and spironolactone for hyponatremia and hypokalemia. Overall she has been doing poorly with poor p.o. intake. Denied any shortness of breath. Has significant peripheral edema in both bilateral upper and lower extremities. Allergies Allergy/AdvReac Type Severity Reaction Status Date / Time [id number] Reductase Allergy Severe Verified 10/11/21 15:08 Inhibitor amoxicillin Allergy Intermediate SEVERE Verified 10/06/21 15:17 RHEUMATOID ARTHRITIC SYMPTOMS clavulanic acid Allergy Intermediate SEVERE Verified 10/06/21 15:17 RHEUMATOID ARTHRITIC SYMPTOMS iodine Allergy Intermediate Stage 1V Verified 10/06/21 15:17 kidney disease lactose Allergy Intermediate Gastrointestinal Verified 10/06/21 15:17 Upset auranofin [From Ridaura] Allergy Mild Rash Verified 09/27/21 13:40 infliximab [From Remicade] Allergy Mild Rash Verified 10/06/21 15:17 Penicillins Allergy Unknown ON MED LIST Verified 10/06/21 15:17 Sulfa (Sulfonamide AdvReac Intermediate "give me Verified 10/06/21 15:17 Antibiotics) anxiety" Home Medications Medication Instructions Recorded Confirmed Type ascorbate calcium (vitamin C) 500 500 mg PO QAM 02/15/19 10/06/21 History mg tablet cyanocobalamin (vitamin B-12) 1,000 mcg PO QAM 02/15/19 10/06/21 History 1,000 mcg capsule ursodiol 300 mg capsule 300 mg PO BID 02/15/19 10/06/21 History biotin 5,000 mcg sublingual tablet 5,000 mcg SL QAM 05/29/19 10/06/21 History methylprednisolone 4 mg tablet See Rx Instructions .ROUTE 05/21/20 10/06/21 Hi story .COMPLEX tab hydroxychloroquine 200 mg tablet 200 mg PO QAM tab 11/16/20 10/06/21 History (Plaquenil) gentamicin sulfate (PF) 60 mg/6 mL 60 mg INHALATION UD PRN #45 ml 12/02/20 1 12/06/20 Rx intravenous solution albuterol sulfate 90 mcg/actuation 2 puff INH Q4H PRN #8.5 g 07/01/21 10/06/21 Rx aerosol inhaler (Ventolin HFA) diclofenac sodium 1 % topical gel 2 g TOPICAL QID PRN 09/02/21 10/06/21 History (Voltaren Arthritis Pain) atorvastatin 40 mg tablet 80 mg PO QAM #30 tab 09/14/21 10/06/21 Rx clopidogrel 75 mg tablet 75 mg PO QAM #30 tab 09/14/21 10/06/21 Rx psyllium husk 0.52 gram capsule 0.52 g PO BIDM 09/17/21 10/06/21 History (Metamucil) sodium chloride 1 gram tablet 1,000 mg PO DAILY tab 10/04/21 10/06/21 History acetaminophen 325 mg tablet 650 mg PO Q4H PRN 10/06/21 10/06/21 History (Tylenol) bisacodyl 10 mg rectal suppository 10 mg ID DAILY PRN 10/06/21 10/06/21 History carvedilol 12.5 mg tablet 12.5 mg PO BIDM 10/06/21 10/06/21 History dextromethorphan-guaifenesin 30 1 tab PO BID 10/06/21 10/06/21 History mg-600 mg tablet extended [id number] hr (Mucinex DM) docusate sodium 100 mg capsule 100 mg PO BID 10/06/21 10/06/21 History ferrous sulfate 325 mg (65 mg 325 mg PO BIDM 10/06/21 10/06/21 History iron) tablet fluticasone furoate 200 1 inh INHALATION DAILY 10/06/21 10/06/21 History mcg-vilanterol 25 mcg/dose inhalation powder (Breo Ellipta) gabapentin 100 mg capsule 200 mg PO HS 10/06/21 10/06/21 History levothyroxine 100 mcg tablet 100 mcg PO DAILYBB 10/06/21 10/06/21 History loperamide 2 mg tablet (Imodium 2 mg PO Q4H PRN 10/06/21 10/06/21 History A-D) magnesium hydroxide 400 mg/5 mL 30 ml PO DAILY PRN 10/06/21 10/06/21 History oral suspension (Milk of Magnesia) ondansetron 4 mg disintegrating 4 mg PO Q6H PRN 10/06/21 10/06/21 History tablet pantoprazole 40 mg tablet,delayed 40 mg PO QDL 10/06/21 10/06/21 History release polyethylene glycol 3350 17 17 g PO QDL PRN 10/06/21 10/06/21 History gram/dose oral powder (Miralax) sennosides 8.6 mg-docusate sodium 1 tab-cap PO QDL PRN 10/06/21 10/06/21 History 50 mg tablet (Senokot-S) tramadol 50 mg tablet 50 mg PO Q12H PRN 10/06/21 10/06/21 History fluticasone 500 mcg-salmeterol 50 1 inh INHALATION BID 10/12/21 10/12/21 History mcg/dose blistr powdr for inhalation (Advair Diskus) Patient History Medical History (Updated 10/12/21 @ 08:35 by Ariel Gong MD) Acute kidney injury Anemia Arm pain, right Bilateral sacroiliitis Choledocholithiasis Chronic hyponatremia Chronic kidney disease (CKD), stage III (moderate) Constipation Hypertension Intractable nausea and vomiting Nausea Piriformis syndrome Right hamstring muscle strain Skin tear of lower leg without complication 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 Russ Brambila S/P [facility] Family History Aunt Breast cancer Father Myocardial infarction Family history of diabetes mellitus Brother Family history of diabetes mellitus Brother Family history of diabetes mellitus Other No family history of adverse response to anesthesia Denies family history of Ovarian cancer Prostate cancer Colorectal cancer Social History Smoking Status: Never smoker Second Hand Exposure: No; Do You Dip or Chew Tobacco: No; Hx Alcohol Use: No Hx Substance Use: No Preferred Language: Citizen Of [place] Communication Ability: Effective Visual Impairment: No Limitations Hearing Ability: Normal Media/Instructional Designer Required: No Beliefs That Will Affect Care: None marital status: Current Living Situation: Personal Care Facility Current Living Situation Comment: Lives with and son current occupational status: retired How many Children do You have: 1 Feels Safe at Home: Yes Safety Concerns: Feels Safe At This Time Childhood Exposure to Second-Hand Smoke: Yes caffeine: Yes Dental Care, Regularly: Yes Physical Activity Frequency: 3-4 Times per Week Seatbelt Use: always Sunscreen Use: Yes Assistive Devices: Glasses Review of Systems Review of Systems: detailed review of system was done and pertinent positives and negatives mentioned in HPI Physical Exam Constitutional: WD/WN, vitals as above + ill appearing and + edematous; no acute distress Eyes: + anicteric sclerae ENMT: Ears: no hearing impairment and no external ear abnormality Nose: nasal mucous membranes not dry Neck: normal visual inspection Thyroid: no thyromegaly Respiratory: normal respiratory effort; no respiratory distress and no cough Auscultation: + diminished lung sounds Cardiovascular: Rate/Rhythm: regular rate and regular rhythm Heart Sounds: normal S1 and normal S2 Extremities: + edema Gastrointestinal (Abdomen): Inspection/Auscultation: abdomen normal to inspection and normal bowel sounds Percussion/Palpation: abdomen soft; abdomen nontender Skin: normal turgor; no rashes Neurologic: no focal motor deficits and not confused Psychiatric: Orientation: alert and oriented x 3 Affect: euthymic affect Results & Data ([facility]) Vital Signs (Past 12 Hours) Vital Signs Temp Pulse Pulse Resp BP Pulse Ox 10/12/21 09:54 64 10/12/21 06:00 36.6 C 68 17 154/79 H 95 10/11/21 23:09 36.6 C 70 18 135/76 96 PG Care Time/CCT Total # of Minutes Spent Total Time Spent with Patient: Total time spent is greater than 50% in coordination of care (as documented) at patient's floor/unit and/or counseling patient: Coding Level of Care Code 84163 Initial Inpt Care Lvl 3 Diagnoses Acute kidney injury N17.9 Anemia due to blood loss, acute D62 Acute hyperkalemia E87.5 Chronic hyponatremia E87.1 Severe protein-calorie malnutrition E43 Myopathy G72.9 Stage 3b chronic kidney disease N18.32
[2021-10-12] MEDS: FLUTICASONE/SALMETEROL (ADVAIR) 500/50 INH 14 PUFF INH SCH ×2 (13:20→22:06)
--- NOTE | 2021-10-12 13:32 | Electrocardiogram Report ---
Test Reason : Blood Pressure : / mmHG Vent. Rate : 063 BPM Atrial Rate : 063 BPM P-R Int : 164 ms QRS Dur : 088 ms QT Int : 404 ms P-R-T Axes : 064 090 096 degrees QTc Int : 413 ms Normal sinus rhythm Rightward axis Abnormal ECG When compared with ECG of 06-OCT-2021 15:32, Questionable change in QRS axis Nonspecific T wave abnormality, improved in Anterolateral leads Confirmed by Brayan Awad ([id number]) on 10/12/2021 1:31:22 PM Referred By: REFERRED SELF Confirmed By:Luciano Aawd
[2021-10-12] MEDS: GABAPENTIN 100 MG CAP PO SCH (22:06)
[2021-10-12] MEDS: SODIUM BICARBONATE 650 MG TAB PO SCH (22:08)
[2021-10-13] MEDS: SODIUM BICARBONATE 8.4% 150 MEQ in DEXTROSE 5% 1,000 ML IV SCH ×2 (00:19→16:37)
[2021-10-13] MEDS: LEVOTHYROXINE SODIUM 100 MCG TABLET PO SCH (06:30)
[2021-10-13 08:14] LABS: Hematocrit (blood only) 29.8 % (37-47); Hemoglobin 9.5 g/dL (12.0-16.0); Mean Corpuscular Hemoglobin 29.4 pg (25-34); Mean Corpuscular Hgb Conc 31.9 g/dL (32-36); Mean Corpuscular Volume 92.3 fL (80-100); Mean Platelet Volume 10.1 fL (7.4-10.4); Platelet Count 207 K/uL (130-400); RDW Standard Deviation 54.5 fL (36.4-46.3); Red Blood Count 3.23 M/uL (4.2-5.4); White Blood Count 7.58 K/uL (4.8-10.8)
[2021-10-13 08:49] LABS: Albumin Level 1.4 gm/dl (3.4-5.0); BUN Creatinine Ratio 41.9 (10-20); Calcium 7.6 mg/dl (8.5-10.1); Creatinine Clr Calc Pharmacy 17.6 ml/min; Est GFR (African American) 22.9 ml/min; Est GFR (Non-African American) 19.7 ml/min
[2021-10-13] MEDS: methylPREDNISolone 20 MG in SYRINGE 0 ML IV SCH ×2 (08:54→22:06)
[2021-10-13] MEDS: SODIUM BICARBONATE 650 MG TAB PO SCH ×2 (08:54→22:07)
[2021-10-13] MEDS: guaiFENesin 600 MG TABCR PO SCH ×2 (08:55→22:06)
[2021-10-13] MEDS: ursodioL 300 MG CAP PO SCH ×2 (08:55→22:07)
[2021-10-13] MEDS: FLUTICASONE/SALMETEROL (ADVAIR) 500/50 INH 14 PUFF INH SCH ×2 (08:56→22:03)
[2021-10-13] MEDS: SUCRALFATE 1 GM/10 ML UDC PO SCH ×4 (08:57→22:07)
[2021-10-13] MEDS: FERROUS SULFATE 325 MG TAB PO SCH ×2 (08:57→16:43)
[2021-10-13] MEDS: carvediloL 12.5 MG TAB PO SCH ×2 (08:57→16:43)
[2021-10-13] MEDS: CLOPIDOGREL BISULFATE 75 MG TAB PO SCH (08:58)
[2021-10-13] MEDS: HYDROXYCHLOROQUINE SULFATE 200 MG TAB PO SCH (08:58)
[2021-10-13] MEDS: ASPIRIN 81 MG ECTAB PO SCH (08:59)
[2021-10-13] MEDS: PANTOprazole 40 MG in SYRINGE 0 ML IV SCH ×2 (08:59→22:06)
[2021-10-13] MEDS: BENZONATATE 100 MG CAPSULE PO SCH ×3 (08:59→22:02)
[2021-10-13] MEDS: HEPARIN SOD 5,000 UNIT/0.5 ML VIAL SQ SCH ×2 (09:00→22:06)
[2021-10-13] MEDS: traMADol HCL 50 MG TABLET PO SCH ×3 (09:18→22:07)
[2021-10-13] MEDS: THIAMINE HCL 200 MG in SODIUM CHLORIDE 0.9% 50 ML IV SCH (09:19)
--- NOTE | 2021-10-13 11:27 | Nephrology Progress Note ---
Date of Service October 13, 2021 Assessment & Plan (1) Acute kidney injury: (2) Anemia due to blood loss, acute: (3) Acute hyperkalemia: (4) Chronic hyponatremia: (5) Severe protein-calorie malnutrition: (6) Myopathy: (7) Stage 3b chronic kidney disease: Plan: 65-year-old female with multiple complex comorbidities including coronary artery disease, stage IV CKD, rheumatoid arthritis, hypertension, chronic hyponatremia admitted with generalized weakness, myopathy, COVID pneumonia. Renal function has been progressively worsening with decreased urine output in the setting of a profound hypoalbuminemia and peripheral edema. Disproportionately elevated BUN also could be secondary to combination of intravascular volume depletion, steroid and GI however decreased urine output over last 2 days has been of concern. Clinically she does not look like signif icantly uremic, denied any nausea, vomiting, no confusion. Appetite has been poor which she blames to hospital food which she is not interested. She most likely intravascularly volume depleted with hypoalbuminemia. She was started on D5W with bicarb but she has not been getting it as she has difficulty moving her right upper extremity and if she has IV running in her left upper extremity she cannot move the extremity and that makes it difficult for her. -- She is agreeable to continue on D5W with bicarbonate at 80 mL/hour at least for few hours. -- encourage increased protein intake, continue on boost -- monitor renal function and electrolyte, acute it intake and output. -- dose medications for GFR less than 30 -- as her GFR is quite low and there is no further improvement in renal f unction, we briefly discussed about potential need for dialysis in next few days if no further improvement in renal function. She is unsure about considering dialysis at this time however she will take time to think about it. Will follow Admission and Anticipated Discharge Date Admission Date: October 06, 2021 Rob Carney was seen and examined in her room this morning. Overall feeling tired but denies any specific symptoms. No improvement in renal function. Blood pressure relatively stable. Review of Systems Review of Systems: detailed review of system was done and pertinent positives and negatives mentioned in HPI Physical Exam Constitutional: WD/WN, vitals as above + ill appearing; no acute distress Eyes: + anicteric sclerae ENMT: Ears: no hearing impairment and no external ear abnormality Nose: nasal mucous membranes not dry Neck: normal visual inspection Respiratory: normal respiratory effort; no respiratory distress Auscultation: + diminished lung sounds and + rales Cardiovascular: Rate/Rhythm: regular rate and regular rhythm Heart Sounds: normal S1 and normal S2 Extremities: + edema Skin: normal turgor; no rashes Neurologic: no focal motor deficits and not confused Psychiatric: Orientation: alert and oriented x 3 Results & Data ([facility]) Vital Signs (Past 12 Hours) Vital Signs Temp Pulse Pulse Resp BP Pulse Ox 10/13/21 11:12 36.5 C 63 18 124/76 96 10/13/21 10:32 67 10/13/21 02:54 36.5 C 72 18 128/74 95 10/13/21 00:02 36.4 C L 68 18 126/77 95 PG Care Time/CCT Total # of Minutes Spent Total Time Spent with Patient: Total time spent is greater than 50% in coordination of care (as documented) at patient's floor/unit and/or counseling patient: Coding Level of Care Code 60925 Subseq Hosp Care Lvl 3 Diagnoses Acute kidney injury N17.9 Anemia due to blood loss, acute D62 Acute hyperkalemia E87.5 Chronic hyponatremia E87.1 Severe protein-calorie malnutrition E43 Myopathy G72.9 Stage 3b chronic kidney disease N18.32
--- NOTE | 2021-10-13 20:29 | Hospitalist Progress Note ---
Date of Service October 13, 2021 Assessment & Plan (1) Myopathy: Plan: vs myositis.resolving CRP is elevated but simply may be due to her COVID illness. CPK improved HOLDING her statin and giving steroids. in August during her NSTEMI admission her CPK was <500 leg weakness is due to myopathy ortho-spine formally consulted; reviewed MRI l-spine; findings do not explain her b/l, proximal muscle weakness, which reinforces dx of statin myopathy as she was placed on lipitor for first time following her NSTEMI cont to HOLD statin - placed on allergy list takes chronic steroids (methylprednisolone) -- cont to Rx with methylprednisolone 20mg BID; no change on that dose (2) Acute GI bleeding: Plan: hgb stable transfused 2 u prbc during stay end of August, was scoped at that time with EGD showing gastritis, cont PPI twice daily cont carafate qid poor candidate for stopping her asa/plavix due to recent NSTEMI and stents (3) COVID-19: Plan: CT chest 10/11/21 b/l pneumonia c/w COVID pneumonia still not hypoxic - continue airborne precautions continue pulmonary toilet not a candidate for remdesivir due to lack of hypoxia and ARF current steroids are primarily for her RA and #1 (4) Abnormal LFTs: Plan: 2nd to statin; can't rule out COVID-19 playing a role as well holding lipitor repeat LFTs today improving she does not have a gall bladder liver on CT appears largely normal (5) Elevated troponin: Plan: myocardial demand ischemia rather than recurrent NSTEMI (6) Chronic hyponatremia: Plan: stable (7) Ischemic cardiomyopathy: Plan: EF 25-30% on echo during admission for NSTEMI overall she is total body fluid overloaded (anasarca) from ARF, CHF and severe hypoalbuminemia but is intra-vascularly dry cont BB not YANG or ARB candidate due to CKD (8) CKD (chronic kidney disease): Plan: STAGE 4 baseline CrCl <30 with JOAN resolving remains with lower bicarbonate did have elevated K+ given miguel a spoke with Dr Arellano from [facility] who knows her well from clinic discussed her volume status, JOAN, and remains on bicarb drip Dr Arellano did see patient in consult (9) CAD (coronary artery disease): Plan: as above (10) Hypertension: Plan: Controlled (11) Asthma: Plan: albuterol 2 puffs QID prn use advair due to formulary restrictions (12) Rheumatoid arthritis: Plan: no active flare at this time cont methylprednisolone cont plaquenil (13) Hypothyroidism: Plan: TSH earlier this month wnl cont synthroid (14) Abnormal MRI, lumbar spine: Plan: fluid in 2 vertebral levels on MRI likely DJD per both radiology and orthopecics she has chronic low back pain, but no change in her chronic symptoms she has no radicular symptoms she has no distal strength deficits (just proximal as in #1 above) (15) Severe protein-calorie malnutrition: Plan: albumin of <1.5 NO APPETITE COVID-19, depression (she denies such but states she is "angry"), recent cardiac issues, etc - all contributing to anorexia 3rd spacing due to low albumin steroids might help appetite Admission and Anticipated Discharge Date Admission Date: October 06, 2021 Subjective pt looks slightly improved today, is not requiring oxygen, still very weak can barely sit at the bedside, is encouraged at speaking with java j2ee software engineer Review of Systems Review of Systems: Mild distress and improving fatigue no headache, no visual changes no speech or swallowing issues no chest pain, pressure or palpitations Mildly shortness of breath, nonproductive cough no abdominal pain, nausea or vomiting, no diarrhea no dysuria, hematuria or frequency no focal joint pain significant peripheral swelling wound nurse is following wounds and dressing no back pain, CVA tenderness or radicular pain Multiple areas of bruises in different stages of healing no focal signs of weakness or numbness or altered sensation overall extremely weak no complaints of anxiety or depression.. Physical Exam Physical Exam: The patient appeared malnourished and now chronically ill, maybe slightly improved Vital signs as documented. Head exam is normocephalic atraumatic Neck is without JVD, thyromegaly, or carotid bruits. Lungs are diminished at the bases but no crackles that are typical for Covid infections Cardiac exam, Rhythm is regular.. Systolic ejection murmur is heard Abdominal exam reveals normal bowel sounds, soft non tender, no masses Extremities are 1+ edematous both arms and legs some leaking of serous fluid from her wounds Neurologic exam is alert and oriented, no focal loss of strength or sensation Skin is with raised bruises on arms and legs from nutritional deficiencies and anti platelet aggregation medication Psychologically is with concerns for frustration and anger from recent hospital stay Results & Data Results & Data ([facility]) Vital Signs (Past 12 Hours) Vital Signs Temp Pulse Pulse Resp BP Pulse Ox Pulse Ox 10/13/21 19:45 97.3 F L 65 18 143/77 H 96 10/13/21 15:57 97.9 F 68 18 148/82 H 96 10/13/21 15:51 63 10/13/21 12:46 96 10/13/21 12:43 96 10/13/21 11:12 97.7 F 63 18 124/76 96 10/13/21 10:32 67 PG Care Time/CCT Total # of Minutes Spent Total Time Spent with Patient: Total time spent is greater than 50% in coordination of care (as documented) at patient's floor/unit and/or counseling patient: Coding Level of Care Code 22940 Subseq Hosp Care Lvl 2 Diagnoses Myopathy G72.9 Acute GI bleeding K92.2 COVID-19 U07.1 Abnormal LFTs R94.5 Elevated troponin R77.8 Chronic hyponatremia E87.1 Ischemic cardiomyopathy I25.5 CKD (chronic kidney disease) N18.9 Chronic kidney disease stage: unspecified stage CAD (coronary artery disease) I25.10 Coronary Disease-Associated Artery/Lesion type: [place] artery [place] vs. transplanted heart: [place] heart Associated angina: without angina Hypertension I10 Asthma J45.909 Rheumatoid arthritis M06.9 Hypothyroidism E03.9 Abnormal MRI, lumbar spine R93.7 Severe protein-calorie malnutrition E43 (1) CKD (chronic kidney disease) Chronic kidney disease stage: unspecified stage Qualified Code(s): N18.9 - Chronic kidney disease, unspecified (2) CAD (coronary artery disease) Coronary Disease-Associated Artery/Lesion type: [place] artery [place] vs. transplanted heart: [place] heart Associated angina: without angina Qualified Code(s): I25.10 - Atherosclerotic heart disease of [place] coronary artery without angina pectoris
[2021-10-13] MEDS: GABAPENTIN 100 MG CAP PO SCH (22:06)
[2021-10-14] MEDS: LEVOTHYROXINE SODIUM 100 MCG TABLET PO SCH (06:21)
[2021-10-14 08:13] LABS: Hematocrit (blood only) 25.5 % (37-47); Hemoglobin 8.5 g/dL (12.0-16.0); Mean Corpuscular Hgb Conc 33.3 g/dL (32-36); Mean Corpuscular Volume 90.1 fL (80-100); Mean Platelet Volume 9.8 fL (7.4-10.4); Platelet Count 202 K/uL (130-400); RDW Coefficient of Variation 15.5 % (11.5-14.5); RDW Standard Deviation 51.2 fL (36.4-46.3); Red Blood Count 2.83 M/uL (4.2-5.4); White Blood Count 5.35 K/uL (4.8-10.8)
[2021-10-14 08:50] LABS: Albumin Level 1.3 gm/dl (3.4-5.0); Calcium 7.2 mg/dl (8.5-10.1); Creatinine Clr Calc Pharmacy 23.2 ml/min; Est GFR (African American) 31.8 ml/min; Est GFR (Non-African American) 27.4 ml/min; Phosphorus 3.8 mg/dl (2.5-4.9); Potassium 4.2 mmol/L (3.5-5.1)
[2021-10-14] MEDS ORDERED: EPOETIN ALFA 20,000 UNITS/ML VIAL SQ STA (09:24)
[2021-10-14] MEDS: SODIUM BICARBONATE 8.4% 150 MEQ in DEXTROSE 5% 1,000 ML IV SCH (10:40)
--- NOTE | 2021-10-14 10:40 | Nephrology Progress Note ---
Date of Service October 14, 2021 Assessment & Plan (1) Acute kidney injury: (2) Anemia due to blood loss, acute: (3) Acute hyperkalemia: (4) Chronic hyponatremia: (5) Severe protein-calorie malnutrition: (6) Myopathy: (7) Stage 3b chronic kidney disease: Plan: 65-year-old female with multiple complex comorbidities including coronary artery disease, stage IV CKD, rheumatoid arthritis, hypertension, chronic hyponatremia admitted with generalized weakness, myopathy, COVID pneumonia. Renal function has been progressively worsening with decreased urine output in the setting of a profound hypoalbuminemia and peripheral edema. Disproportionately elevated BUN also could be secondary to combination of intravascular volume depletion, steroid and GI bleeding. No uremic symptoms, denied any nausea, vomiting, no confusion. -- continue on D5W with bicarbonate at 80 mL/hour -- encourage increased protein intake, continue on boost -- monitor renal function and electrolyte, acute it intake and output. -- dose medications for GFR less than 30 Will follow Admission and Anticipated Discharge Date Admission Date: October 06, 2021 Rob Carney was seen and examined this am. Overall she looks better, BP stable, denies SOB, po intake remains poor. Renal function and electrolyte about the same. UO low. Review of Systems Review of Systems: detailed review of system was done and pertinent positives and negatives mentioned in HPI Physical Exam Constitutional: WD/WN, vitals as above + ill appearing and + edematous; no acute distress Respiratory: normal respiratory effort; no respiratory distress and no cough Auscultation: + diminished lung sounds and + rales Cardiovascular: Rate/Rhythm: regular rate and regular rhythm Heart Sounds: normal S1 and normal S2 Extremities: + edema Neurologic: no focal motor deficits and not confused Psychiatric: Orientation: alert and oriented x 3 Affect: euthymic affect Results & Data ([facility]) Vital Signs (Past 12 Hours) Vital Signs Temp Pulse Pulse Resp BP Pulse Ox 10/14/21 04:22 36.5 C 73 18 127/74 97 10/13/21 23:19 63 10/13/21 23:02 36.5 C 65 18 126/72 97 PG Care Time/CCT Total # of Minutes Spent Total Time Spent with Patient: Total time spent is greater than 50% in coordination of care (as documented) at patient's floor/unit and/or counseling patient: Coding Level of Care Code 24747 Subseq Hosp Care Lvl 3 Diagnoses Acute kidney injury N17.9 Anemia due to blood loss, acute D62 Acute hyperkalemia E87.5 Chronic hyponatremia E87.1 Severe protein-calorie malnutrition E43 Myopathy G72.9 Stage 3b chronic kidney disease N18.32
[2021-10-14] MEDS: PANTOprazole 40 MG in SYRINGE 0 ML IV SCH ×2 (10:41→22:43)
[2021-10-14] MEDS: methylPREDNISolone 20 MG in SYRINGE 0 ML IV SCH ×2 (10:42→22:42)
[2021-10-14] MEDS: THIAMINE HCL 200 MG in SODIUM CHLORIDE 0.9% 50 ML IV SCH (10:42)
[2021-10-14] MEDS: BENZONATATE 100 MG CAPSULE PO SCH ×3 (10:43→21:53)
[2021-10-14] MEDS: traMADol HCL 50 MG TABLET PO SCH ×3 (10:43→22:41)
[2021-10-14] MEDS: ursodioL 300 MG CAP PO SCH ×2 (10:48→21:53)
[2021-10-14] MEDS: ASPIRIN 81 MG ECTAB PO SCH (10:49)
[2021-10-14] MEDS: carvediloL 12.5 MG TAB PO SCH ×2 (10:49→18:17)
[2021-10-14] MEDS: SUCRALFATE 1 GM/10 ML UDC PO SCH ×4 (10:49→21:55)
[2021-10-14] MEDS: FERROUS SULFATE 325 MG TAB PO SCH ×2 (10:50→18:17)
[2021-10-14] MEDS: CLOPIDOGREL BISULFATE 75 MG TAB PO SCH (10:51)
[2021-10-14] MEDS: guaiFENesin 600 MG TABCR PO SCH ×2 (10:51→21:52)
[2021-10-14] MEDS: HEPARIN SOD 5,000 UNIT/0.5 ML VIAL SQ SCH ×2 (10:52→22:46)
[2021-10-14] MEDS: HYDROXYCHLOROQUINE SULFATE 200 MG TAB PO SCH (10:53)
[2021-10-14] MEDS: SODIUM BICARBONATE 650 MG TAB PO SCH ×2 (10:54→21:52)
[2021-10-14] MEDS: FLUTICASONE/SALMETEROL (ADVAIR) 500/50 INH 14 PUFF INH SCH ×2 (10:54→22:45)
--- NOTE | 2021-10-14 19:26 | Hospitalist Progress Note ---
Date of Service October 14, 2021 Assessment & Plan (1) Myopathy: Plan: vs myositis.resolving CRP is elevated but simply may be due to her COVID illness. CPK improved HOLDING her statin and giving steroids. in August during her NSTEMI admission her CPK was <500 leg weakness is due to myopathy ortho-spine formally consulted; reviewed MRI l-spine; findings do not explain her b/l, proximal muscle weakness, which reinforces dx of statin myopathy as she was placed on lipitor for first time following her NSTEMI cont to HOLD statin - placed on allergy list takes chronic steroids (methylprednisolone) -- cont to Rx with methylprednisolone 20mg BID; no change on that dose (2) Acute GI bleeding: Plan: hgb stable transfused 2 u prbc during stay end of August, was scoped at that time with EGD showing gastritis, cont PPI twice daily cont carafate qid poor candidate for stopping her asa/plavix due to recent NSTEMI and stents (3) COVID-19: Plan: CT chest 10/11/21 b/l pneumonia c/w COVID pneumonia still not hypoxic - continue airborne precautions continue pulmonary toilet not a candidate for remdesivir due to lack of hypoxia and ARF current steroids are primarily for her RA and #1 (4) Abnormal LFTs: Plan: 2nd to statin; can't rule out COVID-19 playing a role as well holding lipitor repeat LFTs today improving she does not have a gall bladder liver on CT appears largely normal (5) Elevated troponin: Plan: myocardial demand ischemia rather than recurrent NSTEMI (6) Chronic hyponatremia: Plan: stable (7) Ischemic cardiomyopathy: Plan: EF 25-30% on echo during admission for NSTEMI overall she is total body fluid overloaded (anasarca) from ARF, CHF and severe hypoalbuminemia but is intra-vascularly dry cont BB not YANG or ARB candidate due to CKD (8) CKD (chronic kidney disease): Plan: STAGE 4 baseline CrCl <30 with JOAN resolving remains with lower bicarbonate did have elevated K+ given miguel a spoke with Dr Arellano from [facility] Nephro who knows her well from clinic discussed her volume status, JOAN, and remains on bicarb drip Dr Arellano did see patient in consult (9) CAD (coronary artery disease): Plan: as above (10) Hypertension: Plan: Controlled (11) Asthma: Plan: albuterol 2 puffs QID prn use advair due to formulary restrictions (12) Rheumatoid arthritis: Plan: no active flare at this time cont methylprednisolone cont plaquenil (13) Hypothyroidism: Plan: TSH earlier this month wnl cont synthroid (14) Abnormal MRI, lumbar spine: Plan: fluid in 2 vertebral levels on MRI likely DJD per both radiology and orthopecics she has chronic low back pain, but no change in her chronic symptoms she has no radicular symptoms she has no distal strength deficits (just proximal as in #1 above) (15) Severe protein-calorie malnutrition: Plan: albumin of <1.5 NO APPETITE COVID-19, depression (she denies such but states she is "angry"), recent cardiac issues, etc - all contributing to anorexia 3rd spacing due to low albumin steroids might help appetite Admission and Anticipated Discharge Date Admission Date: October 06, 2021 Subjective Patient continues to be with no oxygen requirement despite her diagnosis of Covid with some pulmonary changes on examination. po intake remains poor. Renal function and electrolyte about the same. UO low. Patient family agreeable to sleep aid Review of Systems Review of Systems: Mild distress and improving fatigue no headache, no visual changes no speech or swallowing issues no chest pain, pressure or palpitations Mildly shortness of breath, nonproductive cough no abdominal pain, nausea or vomiting, no diarrhea no dysuria, hematuria or frequency no focal joint pain significant peripheral swelling no back pain, CVA tenderness or radicular pain Multiple areas of bruises in different stages of healing no focal signs of weakness or numbness or altered sensation overall extremely weak no complaints of anxiety or depression.. Physical Exam Physical Exam: The patient appeared malnourished and now chronically ill, maybe slightly improved Vital signs as documented. Head exam is normocephalic atraumatic Neck is without JVD, thyromegaly, or carotid bruits. Lungs are diminished at the bases but no crackles that are typical for Covid infections Cardiac exam, Rhythm is regular.. Systolic ejection murmur is heard Abdominal exam reveals normal bowel sounds, soft non tender, no masses Extremities are 1+ edematous both arms and legs some leaking of serous fluid from her wounds Neurologic exam is alert and oriented, no focal loss of strength or sensation Skin is with raised bruises on arms and legs from nutritional deficiencies and anti platelet aggregation medication Psychologically is with concerns for frustration and anger from recent hospital stay Results & Data Results & Data ([facility]) Vital Signs (Past 12 Hours) Vital Signs Temp Pulse Resp BP BP Pulse Ox 10/14/21 14:43 98.1 F 66 18 137/75 95 10/14/21 11:07 97.9 F 69 18 144/75 H 96 PG Care Time/CCT Total # of Minutes Spent Total Time Spent with Patient: Total time spent is greater than 50% in coordination of care (as documented) at patient's floor/unit and/or counseling patient: Coding Level of Care Code 59068 Subseq Hosp Care Lvl 2 Diagnoses Myopathy G72.9 Acute GI bleeding K92.2 COVID-19 U07.1 Abnormal LFTs R94.5 Elevated troponin R77.8 Chronic hyponatremia E87.1 Ischemic cardiomyopathy I25.5 CKD (chronic kidney disease) N18.9 Chronic kidney disease stage: unspecified stage CAD (coronary artery disease) I25.10 Coronary Disease-Associated Artery/Lesion type: [place] artery [place] vs. transplanted heart: [place] heart Associated angina: without angina Hypertension I10 Asthma J45.909 Rheumatoid arthritis M06.9 Hypothyroidism E03.9 Abnormal MRI, lumbar spine R93.7 Severe protein-calorie malnutrition E43 (1) CKD (chronic kidney disease) Chronic kidney disease stage: unspecified stage Qualified Code(s): N18.9 - Chronic kidney disease, unspecified (2) CAD (coronary artery disease) Coronary Disease-Associated Artery/Lesion type: [place] artery [place] vs. transplanted heart: [place] heart Associated angina: without angina Qualified Code(s): I25.10 - Atherosclerotic heart disease of [place] coronary artery without angina pectoris
[2021-10-14] MEDS: GABAPENTIN 100 MG CAP PO SCH (21:52)
[2021-10-14] MEDS: QUEtiapine FUMARATE 25 MG TABLET PO SCH (22:41)
[2021-10-15] MEDS: LEVOTHYROXINE SODIUM 100 MCG TABLET PO SCH (06:13)
[2021-10-15] MEDS: SODIUM BICARBONATE 8.4% 150 MEQ in DEXTROSE 5% 1,000 ML IV SCH (07:56)
[2021-10-15] MEDS: traMADol HCL 50 MG TABLET PO SCH ×3 (07:57→20:11)
[2021-10-15] MEDS: PANTOprazole 40 MG in SYRINGE 0 ML IV SCH ×2 (07:57→20:15)
[2021-10-15] MEDS: methylPREDNISolone 20 MG in SYRINGE 0 ML IV SCH ×2 (07:57→20:17)
[2021-10-15] MEDS: FLUTICASONE/SALMETEROL (ADVAIR) 500/50 INH 14 PUFF INH SCH ×2 (07:57→20:14)
[2021-10-15] MEDS: BENZONATATE 100 MG CAPSULE PO SCH ×3 (07:58→20:10)
[2021-10-15] MEDS: SUCRALFATE 1 GM/10 ML UDC PO SCH ×4 (07:58→20:07)
[2021-10-15] MEDS: HEPARIN SOD 5,000 UNIT/0.5 ML VIAL SQ SCH ×2 (07:58→20:34)
[2021-10-15] MEDS: ursodioL 300 MG CAP PO SCH ×2 (07:58→20:10)
[2021-10-15] MEDS: ASPIRIN 81 MG ECTAB PO SCH (07:59)
[2021-10-15] MEDS: carvediloL 12.5 MG TAB PO SCH ×2 (07:59→17:30)
[2021-10-15] MEDS: guaiFENesin 600 MG TABCR PO SCH ×2 (07:59→20:11)
[2021-10-15] MEDS: HYDROXYCHLOROQUINE SULFATE 200 MG TAB PO SCH (08:00)
[2021-10-15] MEDS: CLOPIDOGREL BISULFATE 75 MG TAB PO SCH (08:00)
[2021-10-15] MEDS: FERROUS SULFATE 325 MG TAB PO SCH ×2 (08:00→17:30)
[2021-10-15] MEDS: SODIUM BICARBONATE 650 MG TAB PO SCH ×2 (08:01→20:11)
[2021-10-15 09:12] LABS: Hemoglobin 8.8 g/dL (12.0-16.0); Mean Corpuscular Hemoglobin 30.3 pg (25-34); Mean Corpuscular Hgb Conc 33.8 g/dL (32-36); Mean Corpuscular Volume 89.7 fL (80-100); Platelet Count 224 K/uL (130-400); RDW Coefficient of Variation 15.4 % (11.5-14.5); RDW Standard Deviation 50.6 fL (36.4-46.3); White Blood Count 4.08 K/uL (4.8-10.8)
[2021-10-15] MEDS: THIAMINE HCL 200 MG in SODIUM CHLORIDE 0.9% 50 ML IV SCH (09:25)
[2021-10-15 09:33] LABS: Albumin Level 1.3 gm/dl (3.4-5.0); BUN Creatinine Ratio 57.5 (10-20); Creatinine Clr Calc Pharmacy 25.3 ml/min; Est GFR (African American) 35.9 ml/min; Est GFR (Non-African American) 30.9 ml/min; Phosphorus 3.4 mg/dl (2.5-4.9); Potassium 3.7 mmol/L (3.5-5.1)
--- NOTE | 2021-10-15 12:45 | Nephrology Progress Note ---
Date of Service October 15, 2021 Assessment & Plan (1) Acute kidney injury: (2) Anemia due to blood loss, acute: (3) Acute hyperkalemia: (4) Chronic hyponatremia: (5) Severe protein-calorie malnutrition: (6) Myopathy: (7) Stage 3b chronic kidney disease: Plan: 65-year-old female with multiple complex comorbidities including coronary artery disease, stage IV CKD, rheumatoid arthritis, hypertension, chronic hyponatremia admitted with generalized weakness, myopathy, COVID pneumonia. Renal function has been progressively worsening with decreased urine output in the setting of a profound hypoalbuminemia and peripheral edema. Disproportionately elevated BUN also could be secondary to combination of intravascular volume depletion, steroid and GI bleeding. No uremic symptoms, denied any nausea, vomiting, no confusion. Renal function started to improve slightly, electrolyte improving although she continues to have significant peripheral edema probably secondary to hypoalbuminemia. -- continue on D5W with bicarbonate at 80 mL/hour -- encourage increased protein intake, continue on boost -- monitor renal function and electrolyte. -- dose medications for GFR less than 30 Will follow Admission and Anticipated Discharge Date Admission Date: October 06, 2021 Rob Carney was seen this morning in her room. She denied any shortness of breath, has not been requiring oxygen. Appetite seems to be slightly better. has been having decent urine output. renal function slightly improved, metabolic acidosis resolved. Blood pressure acceptable. Continues to have significant peripheral edema. Review of Systems Review of Systems: detailed review of system was done and pertinent positives and negatives mentioned in HPI Physical Exam Constitutional: WD/WN, vitals as above + ill appearing and + edematous; no acute distress Respiratory: normal respiratory effort; no respiratory distress and no cough Auscultation: + diminished lung sounds and + rales Cardiovascular: Rate/Rhythm: regular rate and regular rhythm Heart Sounds: normal S1 and normal S2 Extremities: + edema Neurologic: no focal motor deficits and not confused Psychiatric: Orientation: alert and oriented x 3 Affect: euthymic affect Results & Data ([facility]) Vital Signs (Past 12 Hours) Vital Signs Temp Pulse Pulse Resp BP Pulse Ox 10/15/21 12:19 36.8 C 68 20 133/60 95 10/15/21 07:41 65 10/15/21 06:46 36.6 C 68 20 137/68 94 PG Care Time/CCT Total # of Minutes Spent Total Time Spent with Patient: Total time spent is greater than 50% in coordination of care (as documented) at patient's floor/unit and/or counseling patient: Coding Level of Care Code 32234 Subseq Hosp Care Lvl 3 Diagnoses Acute kidney injury N17.9 Anemia due to blood loss, acute D62 Acute hyperkalemia E87.5 Chronic hyponatremia E87.1 Severe protein-calorie malnutrition E43 Myopathy G72.9 Stage 3b chronic kidney disease N18.32
[2021-10-15] MEDS ORDERED: STAT IV STA (19:50)
--- NOTE | 2021-10-15 19:55 | Hospitalist Progress Note ---
Date of Service October 15, 2021 Assessment & Plan (1) Myopathy: Plan: vs myositis.resolving CRP is elevated but simply may be due to her COVID illness. CPK improved HOLDING her statin and giving steroids. in August during her NSTEMI admission her CPK was <500 leg weakness is due to myopathy ortho-spine formally consulted; reviewed MRI l-spine; findings do not explain her b/l, proximal muscle weakness, which reinforces dx of statin myopathy as she was placed on lipitor for first time following her NSTEMI cont to HOLD statin - placed on allergy list takes chronic steroids (methylprednisolone) -- cont to Rx with methylprednisolone 20mg BID; no change on that dose (2) Acute GI bleeding: Plan: hgb stable transfused 2 u prbc during stay end of August, was scoped at that time with EGD showing gastritis, cont PPI twice daily cont carafate qid poor candidate for stopping her asa/plavix due to recent NSTEMI and stents (3) COVID-19: Plan: CT chest 10/11/21 b/l pneumonia c/w COVID pneumonia still not hypoxic - continue airborne precautions should likely come off airborne precautions on 10/16/2021 continue pulmonary toilet not a candidate for remdesivir due to lack of hypoxia and ARF current steroids are primarily for her RA and #1 (4) Abnormal LFTs: Plan: 2nd to statin; can't rule out COVID-19 playing a role as well holding lipitor repeat LFTs improving she does not have a gall bladder liver on CT appears largely normal (5) Elevated troponin: Plan: myocardial demand ischemia rather than recurrent NSTEMI (6) Chronic hyponatremia: Plan: stable (7) Ischemic cardiomyopathy: Plan: EF 25-30% on echo during admission for NSTEMI overall she is total body fluid overloaded (anasarca) from ARF, CHF and severe hypoalbuminemia but is intra-vascularly dry cont BB not YANG or ARB candidate due to CKD (8) CKD (chronic kidney disease): Plan: STAGE 4 baseline CrCl <30 with JOAN resolving remains with lower bicarbonate did have elevated K+ given miguel a spoke with Dr Arellano from [facility] Nephro who knows her well from clinic discussed her volume status, JOAN, and remains on bicarb drip changed from bicarb in water to bicarbonate half-normal saline due to hyponatremia noticed to be trending downward 10/15 Dr Arellano did see patient in consult (9) CAD (coronary artery disease): Plan: as above (10) Hypertension: Plan: Controlled (11) Asthma: Plan: albuterol 2 puffs QID prn use advair due to formulary restrictions (12) Rheumatoid arthritis: Plan: no active flare at this time cont methylprednisolone cont plaquenil (13) Hypothyroidism: Plan: TSH earlier this month wnl cont synthroid (14) Abnormal MRI, lumbar spine: Plan: fluid in 2 vertebral levels on MRI likely DJD per both radiology and orthopecics she has chronic low back pain, but no change in her chronic symptoms she has no radicular symptoms she has no distal strength deficits (just proximal as in #1 above) (15) Severe protein-calorie malnutrition: Plan: albumin of <1.5 NO APPETITE COVID-19, depression (she denies such but states she is "angry"), recent cardiac issues, etc - all contributing to anorexia 3rd spacing due to low albumin steroids might help appetite Admission and Anticipated Discharge Date Admission Date: October 06, 2021 Subjective Patient says she feels slightly better she is progressing with physical therapy. A lot of her problem is is deconditioning but also the myositis from her statin use after her recent MD. Does have weeping skin wounds but those are also improving. With her chronic kidney disease were cautiously optimistic Review of Systems Review of Systems: Mild distress and improving fatigue no headache, no visual changes no speech or swallowing issues no chest pain, pressure or palpitations Mildly shortness of breath, nonproductive cough no abdominal pain, nausea or vomiting, no diarrhea no dysuria, hematuria or frequency no focal joint pain significant peripheral swelling no back pain, CVA tenderness or radicular pain Multiple areas of bruises in different stages of healing no focal signs of weakness or numbness or altered sensation overall extremely weak no complaints of anxiety or depression.. Physical Exam Physical Exam: The patient appeared malnourished and now chronically ill, maybe slightly improved Vital signs as documented. Head exam is normocephalic atraumatic Neck is without JVD, thyromegaly, or carotid bruits. Lungs are diminished at the bases but no crackles that are typical for Covid infections Cardiac exam, Rhythm is regular.. Systolic ejection murmur is heard Abdominal exam reveals normal bowel sounds, soft non tender, no masses Extremities are 1+ edematous both arms and legs some leaking of serous fluid from her wounds Neurologic exam is alert and oriented, no focal loss of strength or sensation Skin is with raised bruises on arms and legs from nutritional deficiencies and anti platelet aggregation medication Psychologically is with concerns for frustration and anger from recent hospital stay Results & Data Results & Data ([facility]) Vital Signs (Past 12 Hours) Vital Signs Temp Pulse Pulse Resp BP Pulse Ox 10/15/21 17:25 97.9 F 64 18 133/58 L 94 10/15/21 15:16 63 10/15/21 12:19 98.2 F 68 20 133/60 95 PG Care Time/CCT Total # of Minutes Spent Total Time Spent with Patient: Total time spent is greater than 50% in coordination of care (as documented) at patient's floor/unit and/or counseling patient: Coding Level of Care Code 31990 Subseq Hosp Care Lvl 3 Diagnoses Myopathy G72.9 Acute GI bleeding K92.2 COVID-19 U07.1 Abnormal LFTs R94.5 Elevated troponin R77.8 Chronic hyponatremia E87.1 Ischemic cardiomyopathy I25.5 CKD (chronic kidney disease) N18.9 Chronic kidney disease stage: unspecified stage CAD (coronary artery disease) I25.10 Coronary Disease-Associated Artery/Lesion type: [place] artery [place] vs. transplanted heart: [place] heart Associated angina: without angina Hypertension I10 Asthma J45.909 Rheumatoid arthritis M06.9 Hypothyroidism E03.9 Abnormal MRI, lumbar spine R93.7 Severe protein-calorie malnutrition E43 (1) CKD (chronic kidney disease) Chronic kidney disease stage: unspecified stage Qualified Code(s): N18.9 - Chronic kidney disease, unspecified (2) CAD (coronary artery disease) Coronary Disease-Associated Artery/Lesion type: [place] artery [place] vs. transplanted heart: [place] heart Associated angina: without angina Qualified Code(s): I25.10 - Atherosclerotic heart disease of [place] coronary artery without angina pectoris
[2021-10-15] MEDS: QUEtiapine FUMARATE 25 MG TABLET PO SCH (20:11)
[2021-10-15] MEDS: GABAPENTIN 100 MG CAP PO SCH (20:12)
[2021-10-15] MEDS ORDERED: DEXTROSE 50% 50 ML SYRINGE IV PRN (20:41)
[2021-10-15] MEDS ORDERED: GLUCOSE 40% GEL 15 GM TUBE PO PRN (20:41)
[2021-10-15] MEDS ORDERED: GLUCOSE 10 TABS/TUBE PO PRN (20:41)
[2021-10-15] MEDS ORDERED: GLUCAGON FOR INJ 1 MG VIAL SQ PRN (20:41)
[2021-10-15] MEDS ORDERED: CARBOHYDRATES FOR HYPOGLYCEMIA PO PRN (20:41)
[2021-10-15] MEDS: INSULIN ASPART 100 UNITS/ML 3 ML PEN SC SCH (20:53)
[2021-10-15] MEDS: SODIUM BICARBONATE 8.4% 75 MEQ in SODIUM CHLORIDE 0.45 % 1,000 ML IV SCH (21:14)
[2021-10-16] MEDS: LEVOTHYROXINE SODIUM 100 MCG TABLET PO SCH (06:04)
[2021-10-16] MEDS: SODIUM BICARBONATE 8.4% 150 MEQ in DEXTROSE 5% 1,000 ML IV SCH (07:01)
[2021-10-16] MEDS: SODIUM BICARBONATE 650 MG TAB PO SCH ×2 (08:07→21:08)
[2021-10-16] MEDS: ASPIRIN 81 MG ECTAB PO SCH (08:07)
[2021-10-16] MEDS: guaiFENesin 600 MG TABCR PO SCH ×2 (08:07→21:06)
[2021-10-16] MEDS: SUCRALFATE 1 GM/10 ML UDC PO SCH ×4 (08:07→21:07)
[2021-10-16] MEDS: BENZONATATE 100 MG CAPSULE PO SCH ×3 (08:07→21:01)
[2021-10-16] MEDS: ursodioL 300 MG CAP PO SCH ×2 (08:07→21:03)
[2021-10-16] MEDS: INSULIN ASPART 100 UNITS/ML 3 ML PEN SC SCH ×4 (08:08→21:09)
[2021-10-16] MEDS: PANTOprazole 40 MG in SYRINGE 0 ML IV SCH ×2 (08:08→21:04)
[2021-10-16] MEDS: FERROUS SULFATE 325 MG TAB PO SCH ×2 (08:08→16:12)
[2021-10-16] MEDS: FLUTICASONE/SALMETEROL (ADVAIR) 500/50 INH 14 PUFF INH SCH ×2 (08:08→21:06)
[2021-10-16] MEDS: HYDROXYCHLOROQUINE SULFATE 200 MG TAB PO SCH (08:08)
[2021-10-16] MEDS: methylPREDNISolone 20 MG in SYRINGE 0 ML IV SCH ×2 (08:08→21:03)
[2021-10-16] MEDS: carvediloL 12.5 MG TAB PO SCH ×2 (08:08→16:12)
[2021-10-16] MEDS: CLOPIDOGREL BISULFATE 75 MG TAB PO SCH (08:08)
[2021-10-16] MEDS: HEPARIN SOD 5,000 UNIT/0.5 ML VIAL SQ SCH ×2 (08:08→21:05)
[2021-10-16] MEDS: THIAMINE HCL 200 MG in SODIUM CHLORIDE 0.9% 50 ML IV SCH (08:15)
[2021-10-16] MEDS: traMADol HCL 50 MG TABLET PO SCH ×3 (08:15→21:01)
[2021-10-16 10:11] LABS: Hematocrit (blood only) 27.5 % (37-47); Hemoglobin 9.2 g/dL (12.0-16.0); Mean Corpuscular Hemoglobin 30.4 pg (25-34); Mean Corpuscular Hgb Conc 33.5 g/dL (32-36); Mean Corpuscular Volume 90.8 fL (80-100); Mean Platelet Volume 10.5 fL (7.4-10.4); Platelet Count 217 K/uL (130-400); RDW Coefficient of Variation 15.4 % (11.5-14.5); Red Blood Count 3.03 M/uL (4.2-5.4); White Blood Count 1.86 K/uL (4.8-10.8)
[2021-10-16 10:36] LABS: Albumin Level 1.3 gm/dl (3.4-5.0); BUN Creatinine Ratio 58.5 (10-20); Bilirubin Direct 0.2 mg/dl (0-0.2); Calcium 6.9 mg/dl (8.5-10.1); Creatinine Clr Calc Pharmacy 27.7 ml/min; Est GFR (Non-African American) 34.5 ml/min; Potassium 3.5 mmol/L (3.5-5.1)
[2021-10-16 10:41] LABS: Bilirubin,Total 0.5 mg/dl (0.2-1); Phosphorus 2.8 mg/dl (2.5-4.9); Total Protein 4.1 gm/dl (6.4-8.2)
[2021-10-16] MEDS: SODIUM BICARBONATE 8.4% 75 MEQ in SODIUM CHLORIDE 0.45 % 1,000 ML IV SCH (11:29)
--- NOTE | 2021-10-16 14:20 | Nephrology Progress Note ---
Date of Service October 16, 2021 Assessment & Plan (1) Acute kidney injury: Plan: Consistent with prerenal physiology and ATN. Clinically improving. Volume status acceptable. Electrolytes normal. Remains on NaHCO3 gtt. Creatinine continues to improve. Document I/O's and repeat metabolic profile tomorrow AM. Medications appropriate for kidney dysfunction. (2) Anemia due to blood loss, acute: Plan: Hgb stable. No additional evidence of GI bleed. 2 U PRBC transfused at the end of August. Update iron stores with next blood work. (3) Acute hyperkalemia: Plan: Low potassium diet. (4) Chronic hyponatremia: Plan: Chronic, stable. Maintain current fluid limit. (5) Severe protein-calorie malnutrition: Plan: Boost protein shakes provided. (6) Myopathy: (7) Stage 3b chronic kidney disease: Plan: Statin held. Admission and Anticipated Discharge Date Admission Date: October 06, 2021 Subjective No acute events overnight. Overall noting improvement this AM. No fevers or chills. Breathing improving. Weakness persists. noted deconditioning. Myalgias notably improved. Review of Systems Review of Systems: All systems reviewed & are unremarkable except as noted in HPI & below Physical Exam Constitutional: well developed; no acute distress Eyes: no scleral abnormality and no corneal abnormality ENMT: Mouth: no oral mucosal abnormality and oral mucous membranes not dry Neck: normal visual inspection and trachea midline Respiratory: normal respiratory effort Auscultation: lungs clear to auscultation bilaterally Cardiovascular: Rate/Rhythm: regular rate Heart Sounds: normal S1 and n ormal S2 Extremities: no edema Musculoskeletal: Extremities: no cyanosis and no clubbing Skin: normal turgor; no lesions Neurologic: Motor/Sensory: no tremor and no asterixis Psychiatric: Orientation: alert and oriented x 3 Results & Data ([facility]) Vital Signs (Past 12 Hours) Vital Signs Temp Pulse Pulse Resp BP Pulse Ox 10/16/21 12:07 36.7 C 70 18 130/73 94 10/16/21 08:49 66 10/16/21 07:20 36.7 C 63 20 118/63 94 10/16/21 02:39 36.6 C 63 18 117/66 95 PG Care Time/CCT Total # of Minutes Spent Total Time Spent with Patient: Total time spent is greater than 50% in coordination of care (as documented) at patient's floor/unit and/or counseling patient: Coding Level of Care Code 91823 Subseq Hosp Care Lvl 3 Diagnoses Acute kidney injury N17.9 Anemia due to blood loss, acute D62 Acute hyperkalemia E87.5 Chronic hyponatremia E87.1 Severe protein-calorie malnutrition E43 Myopathy G72.9 Stage 3b chronic kidney disease N18.32
--- NOTE | 2021-10-16 15:09 | Hospitalist Progress Note ---
Date of Service October 16, 2021 Assessment & Plan (1) Myopathy: Plan: Myositis, resolving but still weak CPK improved HOLDING her statin and giving steroids. in August during her NSTEMI admission her CPK was <500 leg weakness is due to myopathy ortho-spine formally consulted; reviewed MRI l-spine; findings do not explain her b/l, proximal muscle weakness, which reinforces dx of statin myopathy as she was placed on lipitor for first time following her NSTEMI cont to HOLD statin - placed on allergy list takes chronic steroids (methylprednisolone) -- cont to Rx with methylprednisolone 20mg BID; no change on that dose (2) Acute GI bleeding: Plan: hgb stable transfused 2 u prbc during stay end of August, was scoped at that time with EGD showing gastritis, cont PPI twice daily cont carafate qid poor candidate for stopping her asa/plavix due to recent NSTEMI and stents (3) COVID-19: Plan: CT chest 10/11/21 b/l pneumonia c/w COVID pneumonia still not hypoxic - continue airborne precautions should likely come off airborne precautions on 10/16/2021 continue pulmonary toilet not a candidate for remdesivir due to lack of hypoxia and ARF current steroids are primarily for her RA and #1 check with infection control after weekend about coming off precautions (4) Abnormal LFTs: Plan: 2nd to statin; can't rule out COVID-19 playing a role as well holding lipitor repeat LFTs improving she does not have a gall bladder liver on CT appears largely normal (5) Elevated troponin: Plan: myocardial demand ischemia rather than recurrent NSTEMI (6) Chronic hyponatremia: Plan: stable (7) Ischemic cardiomyopathy: Plan: EF 25-30% on echo during admission for NSTEMI overall she is total body fluid overloaded (anasarca) from ARF, CHF and severe hypoalbuminemia but is intra-vascularly dry cont BB not YANG or ARB candidate due to CKD (8) CKD (chronic kidney disease): Plan: STAGE 4 baseline CrCl <30 with JOAN resolving remains with lower bicarbonate did have elevated K+ given veltassa continue bicarb drip Cr improved to 1.4 (9) CAD (coronary artery disease): Plan: as above (10) Hypertension: Plan: Controlled (11) Asthma: Plan: albuterol 2 puffs QID prn use advair due to formulary restrictions (12) Rheumatoid arthritis: Plan: no active flare at this time cont methylprednisolone cont plaquenil (13) Hypothyroidism: Plan: TSH earlier this month wnl cont synthroid (14) Abnormal MRI, lumbar spine: Plan: fluid in 2 vertebral levels on MRI likely DJD per both radiology and orthopecics she has chronic low back pain, but no change in her chronic symptoms she has no radicular symptoms she has no distal strength deficits (just proximal as in #1 above) (15) Severe protein-calorie malnutrition: Plan: albumin of <1.5 NO APPETITE COVID-19, depression (she denies such but states she is "angry"), recent cardiac issues, etc - all contributing to anorexia 3rd spacing due to low albumin steroids might help appetite Admission and Anticipated Discharge Date Admission Date: October 06, 2021 Subjective patient feeling a little better today, a little stronger Cr is improving, making urine appetite still not great, does not like the food options here reviewed chart discussed with Dr. Chaparro Review of Systems Review of Systems: All systems reviewed & are unremarkable except as noted in Subjective Musculoskeletal: + muscle weakness Physical Exam Physical Exam: General: well developed, well nourished, no acute distress, comfortable, edematous Neck: supple, trachea midline, normal thyroid Lungs: clear to auscultation bilaterally, normal respiratory effort, no accessory muscle use, no distress Heart: regular S1 and S2, no murmur, peripheral pulses normal, capillary refill normal, no edema Abdomen: soft, NT, ND, + BS, no hepatomegaly, normal to percussion Extremities: normal in appearance, no cyanosis, no petechiae, strength is diminished bilaterally Neuro: awake, cooperative, moves all extremities, no focal motor deficits, CN II-XII intact Skin: thin skin, decreased turgor Psych: Awake, alert oriented x 3, euthymic affect Results & Data Results & Data ([facility]) Vital Signs (Past 12 Hours) Vital Signs Temp Pulse Pulse Resp BP Pulse Ox 10/16/21 12:07 36.7 C 70 18 130/73 94 10/16/21 08:49 66 10/16/21 07:20 36.7 C 63 20 118/63 94 PG Care Time/CCT Total # of Minutes Spent Total Time Spent with Patient: Total time spent is greater than 50% in coordination of care (as documented) at patient's floor/unit and/or counseling patient: Coding Level of Care Code 62713 Subseq Hosp Care Lvl 2 Diagnoses Myopathy G72.9 Acute GI bleeding K92.2 COVID-19 U07.1 Abnormal LFTs R94.5 Elevated troponin R77.8 Chronic hyponatremia E87.1 Ischemic cardiomyopathy I25.5 CKD (chronic kidney disease) N18.9 Chronic kidney disease stage: unspecified stage CAD (coronary artery disease) I25.10 Associated angina: without angina Coronary Disease-Associated Artery/Lesion type: [place] artery [place] vs. transplanted heart: [place] heart Hypertension I10 Asthma J45.909 Rheumatoid arthritis M06.9 Hypothyroidism E03.9 Abnormal MRI, lumbar spine R93.7 Severe protein-calorie malnutrition E43 (1) CAD (coronary artery disease) Associated angina: without angina Coronary Disease-Associated Artery/Lesion type: [place] artery [place] vs. transplanted heart: [place] heart Qualified Code(s): I25.10 - Atherosclerotic heart disease of [place] coronary artery without angina pectoris (2) CKD (chronic kidney disease) Chronic kidney disease stage: unspecified stage Qualified Code(s): N18.9 - Chronic kidney disease, unspecified
[2021-10-16] MEDS: GABAPENTIN 100 MG CAP PO SCH (21:05)
[2021-10-16] MEDS: QUEtiapine FUMARATE 25 MG TABLET PO SCH (21:07)
[2021-10-17] MEDS: SODIUM BICARBONATE 8.4% 75 MEQ in SODIUM CHLORIDE 0.45 % 1,000 ML IV SCH (02:23)
[2021-10-17] MEDS: LEVOTHYROXINE SODIUM 100 MCG TABLET PO SCH (05:59)
[2021-10-17] MEDS: THIAMINE HCL 200 MG in SODIUM CHLORIDE 0.9% 50 ML IV SCH (08:48)
[2021-10-17] MEDS: INSULIN ASPART 100 UNITS/ML 3 ML PEN SC SCH ×4 (08:54→20:40)
[2021-10-17] MEDS: SUCRALFATE 1 GM/10 ML UDC PO SCH ×4 (08:57→20:39)
[2021-10-17] MEDS: traMADol HCL 50 MG TABLET PO SCH ×3 (08:58→20:35)
[2021-10-17] MEDS: ursodioL 300 MG CAP PO SCH ×2 (08:59→20:39)
[2021-10-17] MEDS: SODIUM BICARBONATE 650 MG TAB PO SCH ×2 (08:59→20:40)
[2021-10-17] MEDS: HEPARIN SOD 5,000 UNIT/0.5 ML VIAL SQ SCH ×2 (09:00→20:37)
[2021-10-17] MEDS: HYDROXYCHLOROQUINE SULFATE 200 MG TAB PO SCH (09:00)
[2021-10-17] MEDS: methylPREDNISolone 20 MG in SYRINGE 0 ML IV SCH ×2 (09:00→20:34)
[2021-10-17] MEDS: PANTOprazole 40 MG in SYRINGE 0 ML IV SCH ×2 (09:00→20:34)
[2021-10-17] MEDS: FLUTICASONE/SALMETEROL (ADVAIR) 500/50 INH 14 PUFF INH SCH ×2 (09:01→20:39)
[2021-10-17] MEDS: CLOPIDOGREL BISULFATE 75 MG TAB PO SCH (09:01)
[2021-10-17] MEDS: BENZONATATE 100 MG CAPSULE PO SCH ×3 (09:01→20:38)
[2021-10-17] MEDS: ASPIRIN 81 MG ECTAB PO SCH (09:01)
[2021-10-17] MEDS: guaiFENesin 600 MG TABCR PO SCH ×2 (09:01→20:38)
[2021-10-17] MEDS: carvediloL 12.5 MG TAB PO SCH ×2 (09:02→17:06)
[2021-10-17] MEDS: FERROUS SULFATE 325 MG TAB PO SCH ×2 (09:02→17:06)
--- NOTE | 2021-10-17 11:52 | Nephrology Progress Note ---
Date of Service October 17, 2021 Assessment & Plan (1) Acute kidney injury: Plan: Consistent with prerenal physiology and ATN. Clinically improving. Volume status acceptable. Electrolytes normal. NaHCO3 gtt stopped. Creatinine continues to improve. Document I/O's and repeat metabolic profile tomorrow AM. Medications appropriate for kidney dysfunction. (2) Anemia due to blood loss, acute: Plan: Hgb stable. No additional evidence of GI bleed. 2 U PRBC transfused at the end of August. Iron profile pending. Defer ANDREY at thsi time pending iron studies and additional monitoring. (3) Acute hyperkalemia: Plan: Low potassium diet. (4) Chronic hyponatremia: Plan: Chronic, stable. Maintain current fluid limit. (5) Severe protein-calorie malnutrition: Plan: Boost protein shakes provided. (6) Myopathy: (7) Stage 3b chronic kidney disease: Plan: Statin held. Admission and Anticipated Discharge Date Admission Date: October 06, 2021 Subjective No acute events overnight. No fevers or chills. Breathing comfortably. No complaints this AM. Review of Systems Review of Systems: All systems reviewed & are unremarkable except as noted in HPI & below Physical Exam Constitutional: well developed; no acute distress Eyes: no scleral abnormality and no corneal abnormality ENMT: Mouth: no oral mucosal abnormality and oral mucous membranes not dry Neck: normal visual inspection and trachea midline Respiratory: normal respiratory effort Auscultation: lungs clear to auscu ltation bilaterally Cardiovascular: Rate/Rhythm: regular rate Heart Sounds: normal S1 and normal S2 Extremities: no edema Musculoskeletal: Extremities: no cyanosis and no clubbing Skin: normal turgor; no lesions Neurologic: Motor/Sensory: no tremor and no asterixis Psychiatric: Orientation: alert and oriented x 3 Results & Data ([facility]) Vital Signs (Past 12 Hours) Vital Signs Temp Pulse Pulse Resp BP Pulse Ox 10/17/21 11:27 36.7 C 67 20 114/67 93 10/17/21 07:26 36.7 C 65 66 20 120/66 94 10/17/21 02:33 36.7 C 68 18 119/66 94 10/17/21 00:00 67 Laboratory Results Laboratory Results - last 24 hr 10/16/21 10/16/21 10/16/21 12:05 16:42 20:43 POC Glucose 218 H 189 H 271 H Iron Transferrin Transferrin % Sat Ferritin 10/17/21 10/17/21 10/17/21 00:47 07:26 09:08 POC Glucose 256 H 219 H Iron Pending Transferrin Pending Transferrin % Sat Pending Ferritin Pending PG Care Time/CCT Total # of Minutes Spent Total Time Spent with Patient: Total time spent is greater than 50% in coordination of care (as documented) at patient's floor/unit and/or counseling patient: Coding Level of Care Code 38917 Subseq Hosp Care Lvl 3 Diagnoses Acute kidney injury N17.9 Anemia due to blood loss, acute D62 Acute hyperkalemia E87.5 Chronic hyponatremia E87.1 Severe protein-calorie malnutrition E43 Myopathy G72.9 Stage 3b chronic kidney disease N18.32
[2021-10-17 11:59] LABS: Ferritin 1571.8 ng/ml (8-388)
[2021-10-17 12:35] LABS: Albumin Level 1.2 gm/dl (3.4-5.0); BUN Creatinine Ratio 60.4 (10-20); Calcium 6.5 mg/dl (8.5-10.1); Creatinine Clr Calc Pharmacy 29.6 ml/min; Est GFR (African American) 43.2 ml/min; Est GFR (Non-African American) 37.2 ml/min; Phosphorus 2.5 mg/dl (2.5-4.9); Potassium 3.5 mmol/L (3.5-5.1)
[2021-10-17 12:41] LABS: Hematocrit (blood only) 26.8 % (37-47); Hemoglobin 8.6 g/dL (12.0-16.0); Mean Corpuscular Hemoglobin 29.5 pg (25-34); Mean Corpuscular Hgb Conc 32.1 g/dL (32-36); Mean Corpuscular Volume 91.8 fL (80-100); Mean Platelet Volume 10.8 fL (7.4-10.4); Platelet Count 242 K/uL (130-400); RDW Coefficient of Variation 15.8 % (11.5-14.5); RDW Standard Deviation 52.7 fL (36.4-46.3); Red Blood Count 2.92 M/uL (4.2-5.4); White Blood Count 1.36 K/uL (4.8-10.8)
[2021-10-17 13:05] LABS: Immature Granulocytes # (auto) 0.01 K/uL (0.00-0.02); Immature Granulocytes % (auto) 0.7 %; Lymphocytes # (auto) 0.28 K/uL (1.2-3.4); Lymphocytes % (auto) 20.6 %; Monocytes # (auto) 0.15 K/uL (0.11-0.59); Neutrophils # (auto) 0.92 K/uL (1.4-6.5); Neutrophils % (auto) 67.7 %
--- NOTE | 2021-10-17 20:23 | Hospitalist Progress Note ---
Date of Service October 17, 2021 Assessment & Plan (1) Myopathy: Plan: Myositis, resolving but still weak CPK improved HOLDING her statin and giving steroids. in August during her NSTEMI admission her CPK was <500 leg weakness is due to myopathy ortho-spine formally consulted; reviewed MRI l-spine; findings do not explain her b/l, proximal muscle weakness, which reinforces dx of statin myopathy as she was placed on lipitor for first time following her NSTEMI cont to HOLD statin - placed on allergy list takes chronic steroids (methylprednisolone) -- cont to Rx with methylprednisolone 20mg BID; no change on that dose (2) Neutropenia: Plan: WBC has been drifting down, now with PMN < 1.0 no fever unclear etiology, reviewed medications, she is on hydroxychloroquine, has taken since 1996 could be acute viral illness? repeat CBC in morning consult hematology to see tomorrow for their recommendations (3) CKD (chronic kidney disease): Plan: STAGE 4 baseline CrCl <30 with JOAN resolving did have elevated K+ given veltassa stop bicarb drip Cr improved to 1.3 (4) Acute GI bleeding: Plan: hgb stable transfused 2 u prbc during stay end of August, was scoped at that time with EGD showing gastritis, cont PPI twice daily cont carafate qid poor candidate for stopping her asa/plavix due to recent NSTEMI and stents Hb is 8.6 (5) COVID-19: Plan: CT chest 10/11/21 b/l pneumonia c/w COVID pneumonia still not hypoxic - continue airborne precautions should likely come off airborne precautions on 10/16/2021 continue pulmonary toilet not a candidate for remdesivir due to lack of hypoxia and ARF current steroids are primarily for her RA and #1 check with infection control after weekend about coming off precautions (6) Abnormal LFTs: Plan: 2nd to statin; can't rule out COVID-19 playing a role as well holding lipitor repeat LFTs improving she does not have a gall bladder liver on CT appears largely normal (7) Elevated troponin: Plan: myocardial demand ischemia rather than recurrent NSTEMI (8) Chronic hyponatremia: Plan: stable (9) Ischemic cardiomyopathy: Plan: EF 25-30% on echo during admission for NSTEMI overall she is total body fluid overloaded (anasarca) from ARF, CHF and severe hypoalbuminemia but is intra-vascularly dry cont BB not YANG or ARB candidate due to CKD (10) CAD (coronary artery disease): Plan: as above (11) Hypertension: Plan: Controlled (12) Asthma: Plan: albuterol 2 puffs QID prn use advair due to formulary restrictions (13) Rheumatoid arthritis: Plan: no active flare at this time cont methylprednisolone cont plaquenil (14) Hypothyroidism: Plan: TSH earlier this month wnl cont synthroid (15) Abnormal MRI, lumbar spine: Plan: fluid in 2 vertebral levels on MRI likely DJD per both radiology and orthopecics she has chronic low back pain, but no change in her chronic symptoms she has no radicular symptoms she has no distal strength deficits (just proximal as in #1 above) (16) Severe protein-calorie malnutrition: Plan: albumin of <1.5 NO APPETITE COVID-19, depression (she denies such but states she is "angry"), recent cardiac issues, etc - all contributing to anorexia 3rd spacing due to low albumin steroids might help appetite Admission and Anticipated Discharge Date Admission Date: October 06, 2021 Subjective patient doing a little better today, Cr down to 1.3, stop bicarb drip CBC shows that WBC is low and she has neutropenia? unclear etiology, has been on hydroxychloroquine for years, since 1996 per patient if this was due to COVID would think it would have happened earlier in the course of illness check CBC in morning and ask hematology to evaluate breathing well on room air, eating okay but not great Review of Systems Review of Systems: All systems reviewed & are unremarkable except as noted in Subjective Constitutional: + fatigue and + weakness Musculoskeletal: + muscle weakness Physical Exam Physical Exam: General: well developed, well nourished, no acute distress, comfortable, edematous Neck: supple, trachea midline, normal thyroid Lungs: clear to auscultation bilaterally, normal respiratory effort, no accessory muscle use, no distress Heart: regular S1 and S2, no murmur, peripheral pulses normal, capillary refill normal, no edema Abdomen: soft, NT, ND, + BS, no hepatomegaly, normal to percussion Extremities: normal in appearance, no cyanosis, no petechiae, strength is diminished bilaterally Neuro: awake, cooperative, moves all extremities, no focal motor deficits, CN II-XII intact Skin: thin skin, decreased turgor Psych: Awake, alert oriented x 3, euthymic affect Results & Data Results & Data ([facility]) Vital Signs (Past 12 Hours) Vital Signs Temp Pulse Resp BP Pulse Ox 10/17/21 19:19 36.8 C 71 18 113/63 93 10/17/21 16:26 36.8 C 67 18 114/65 94 10/17/21 11:27 36.7 C 67 20 114/67 93 Laboratory Results Laboratory Results - last 24 hr 10/16/21 10/17/21 10/17/21 20:43 00:47 07:26 WBC RBC Hgb Hct MCV MCH MCHC RDW Std Deviation RDW Coeff of Sue Plt Count MPV Immature Gran % (Auto) Neut % (Auto) Lymph % (Auto) [place] % (Auto) Eos % (Auto) Baso % (Auto) Neut # (Auto) Lymph # (Auto) [place] # (Auto) Eos # (Auto) Baso # (Auto) Immature Gran # (Auto) Sodium Potassium Chloride Carbon Dioxide Anion Gap BUN Creatinine Est Cr Clr Drug Dosing Est GFR ( Amer) Est GFR (Non-Af Amer) BUN/Creatinine Ratio Glucose POC Glucose 271 H 256 H 219 H Calcium Phosphorus Iron Transferrin Transferrin % Sat Ferritin Albumin 10/17/21 10/17/21 10/17/21 09:08 09:08 09:08 WBC 1.36 L RBC 2.92 L Hgb 8.6 L Hct 26.8 L MCV 91.8 MCH 29.5 MCHC 32.1 RDW Std Deviation 52.7 H RDW Coeff of Sue 15.8 H Plt Count 242 MPV 10.8 H Immature Gran % (Auto) 0.7 Neut % (Auto) 67.7 Lymph % (Auto) 20.6 [place] % (Auto) 11.0 Eos % (Auto) 0.0 Baso % (Auto) 0.0 Neut # (Auto) 0.92 L* Lymph # (Auto) 0.28 L [place] # (Auto) 0.15 Eos # (Auto) 0.00 Baso # (Auto) 0.00 Immature Gran # (Auto) 0.01 Sodium 133 L Potassium 3.5 Chloride 95 L Carbon Dioxide 28 Anion Gap 10.0 BUN 84 H Creatinine 1.39 H Est Cr Clr Drug Dosing 29.6 Est GFR ( Amer) 43.2 Est GFR (Non-Af Amer) 37.2 BUN/Creatinine Ratio 60.4 H Glucose 213 H POC Glucose Calcium 6.5 L Phosphorus 2.5 Iron 40 Transferrin 108 L Transferrin % Sat 26 Ferritin 1571.8 H Albumin 1.2 L 10/17/21 10/17/21 10/17/21 11:26 16:47 20:07 WBC RBC Hgb Hct MCV MCH MCHC RDW Std Deviation RDW Coeff of Sue Plt Count MPV Immature Gran % (Auto) Neut % (Auto) Lymph % (Auto) [place] % (Auto) Eos % (Auto) Baso % (Auto) Neut # (Auto) Lymph # (Auto) [place] # (Auto) Eos # (Auto) Baso # (Auto) Immature Gran # (Auto) Sodium Potassium Chloride Carbon Dioxide Anion Gap BUN Creatinine Est Cr Clr Drug Dosing Est GFR ( Amer) Est GFR (Non-Af Amer) BUN/Creatinine Ratio Glucose POC Glucose 190 H 187 H 254 H Calcium Phosphorus Iron Transferrin Transferrin % Sat Ferritin Albumin Medications Administered Current Inpatient Medications Acetaminophen (Acetaminophen 325 Mg Tab) 650 mg PO Q4H PRN PRN Reason: Pain or Fever Stop: 11/05/21 20:12 Last Admin: 10/11/21 06:18 Dose: 650 mg Documented by: Albuterol (Albuterol Hfa 8 Gm Inhaler) 2 puffs INH QIDR PRN PRN Reason: Shortness Of Breath Or Wheezing Stop: 11/09/21 16:59 Aspirin (Aspirin 81 Mg Ectab) 81 mg PO QAM [facility] Stop: 11/06/21 11:14 Last Admin: 10/17/21 09:01 Dose: 81 mg Documented by: Benzonatate (Benzonatate 100 Mg Capsule) 100 mg PO TID [facility] Stop: 11/09/21 13:59 Last Admin: 10/17/21 13:31 Dose: 100 mg Documented by: Bisacodyl (Bisacodyl 10 Mg Supp) 10 mg SC DAILY PRN PRN Reason: Constipation Stop: 11/05/21 20:12 Carvedilol (Carvedilol 12.5 Mg Tab) 12.5 mg PO BIDM [facility] Stop: 11/06/21 07:59 Last Admin: 10/17/21 17:06 Dose: 12.5 mg Documented by: Clopidogrel Bisulfate (Clopidogrel Bisulfate 75 Mg Tab) 75 mg PO QAM [facility] Stop: 11/06/21 08:59 Last Admin: 10/17/21 09:01 Dose: 75 mg Documented by: Dextrose (Dextrose 50% 50 Ml Syringe) 25 - 50 ml IV UD PRN; Protocol PRN Reason: Hypoglycemia Protocol Stop: 11/06/21 09:04 Dextrose (Dextrose 50% 50 Ml Syringe) 25 - 50 ml IV UD PRN; Protocol PRN Reason: Hypoglycemia Protocol Stop: 11/14/21 20:40 Diclofenac Sodium (Diclofenac Sod 1% Gel 100 Gm Tube) 2 gm EXT QID PRN PRN Reason: Pain Stop: 11/05/21 20:12 Ferrous Sulfate (Ferrous Sulfate 325 Mg Tab) 325 mg PO BIDM [facility] Stop: 11/06/21 07:59 Last Admin: 10/17/21 17:06 Dose: 325 mg Documented by: Gabapentin (Gabapentin 100 Mg Cap) 200 mg PO HS [facility] Stop: 11/05/21 20:59 Last Admin: 10/16/21 21:05 Dose: 200 mg Documented by: Glucagon (Glucagon For Inj 1 Mg Vial) 1 mg SQ UD PRN; Protocol PRN Reason: Hypoglycemia Protocol Stop: 11/06/21 09:04 Glucagon (Glucagon For Inj 1 Mg Vial) 1 mg SQ UD PRN; Protocol PRN Reason: Hypoglycemia Protocol Stop: 11/14/21 20:40 Glucose (Glucose 10 Tabs/Tube) 4 - 8 tabs PO UD PRN; Protocol PRN Reason: Hypoglycemia Protocol Stop: 11/06/21 09:04 Glucose (Glucose 40% Gel 15 Gm Tube) 15 - 30 gm PO UD PRN; Protocol PRN Reason: Hypoglycemia Protocol Stop: 11/06/21 09:04 Glucose (Glucose 10 Tabs/Tube) 4 - 8 tabs PO UD PRN; Protocol PRN Reason: Hypoglycemia Protocol Stop: 11/14/21 20:40 Glucose (Glucose 40% Gel 15 Gm Tube) 15 - 30 gm PO UD PRN; Protocol PRN Reason: Hypoglycemia Protocol Stop: 11/14/21 20:40 Guaifenesin (Guaifenesin 600 Mg Tabcr) 1,200 mg PO BID [facility] Stop: 11/11/21 20:59 Last Admin: 10/17/21 09:01 Dose: 1,200 mg Documented by: Guaifenesin/Codeine Phosphate (Guaifenesin/Codeine 100mg/10mg 5ml Udc) 5 ml PO Q6H PRN PRN Reason: Cough Stop: 11/09/21 09:39 Last Admin: 10/11/21 20:36 Dose: 5 ml Documented by: Heparin Sodium (Porcine) (Heparin Sod 5,000 Unit/0.5 Ml Vial) 5,000 units SQ Q12 [facility] Stop: 11/09/21 20:59 Last Admin: 10/17/21 09:00 Dose: 5,000 units Documented by: Pantoprazole Sodium 40 mg/ (Syringe) 10 mls @ 5 mls/min IV BID [facility] Stop: 11/05/21 20:59 Last Admin: 10/17/21 09:00 Dose: 5 mls/min Documented by: Thiamine HCl 200 mg/ Sodium (Chloride) 52 mls @ 208 mls/hr IV QAM [facility] Stop: 11/06/21 11:29 Last Infusion: 10/17/21 09:57 Dose: Infused Documented by: Methylprednisolone 20 mg/ (Syringe) 0.32 mls @ 1.5 mls/min IV BID [facility] Stop: 11/08/21 09:59 Last Admin: 10/17/21 09:00 Dose: 1.5 mls/min Documented by: Insulin Aspart (Insulin Aspart 100 Units/Ml 3 Ml Pen) 0 units SC ACHS [facility] Stop: 11/14/21 20:59 Last Admin: 10/17/21 17:01 Dose: 3 units Documented by: Levothyroxine Sodium (Levothyroxine Sodium 100 Mcg Tablet) 100 mcg PO DAILYBB [facility] Stop: 11/06/21 06:29 Last Admin: 10/17/21 05:59 Dose: 100 mcg Documented by: Miscellaneous (Carbohydrates For Hypoglycemia ) 15 - 30 gm PO UD PRN PRN Reason: Hypoglycemia Protocol Stop: 11/06/21 09:04 Last Admin: 10/08/21 08:58 Dose: 30 gm Documented by: Miscellaneous (Carbohydrates For Hypoglycemia ) 15 - 30 gm PO UD PRN PRN Reason: Hypoglycemia Protocol Stop: 11/14/21 20:40 Nitroglycerin (Nitroglycerin Sl 0.4 Mg/Tab Tab) 0.4 mg SL UD PRN PRN Reason: Chest Pain Stop: 11/05/21 20:12 Ondansetron HCl (Ondansetron Inj 2 Mg/Ml 2 Ml Vial) 4 mg IV Q6H PRN PRN Reason: Nausea Stop: 11/05/21 20:12 Last Admin: 10/08/21 11:01 Dose: 4 mg Documented by: Quetiapine Fumarate (Quetiapine Fumarate 25 Mg Tablet) 25 mg PO HS [facility] Stop: 11/13/21 20:59 Last Admin: 10/16/21 21:07 Dose: 25 mg Documented by: Fluticasone/Salmeterol (Fluticasone/Salmeterol (Advair) 500/50 Inh 14 Puff) 1 puffs INH BID [facility] Stop: 11/11/21 10:59 Last Admin: 10/17/21 09:01 Dose: 1 puffs Documented by: Sodium Bicarbonate (Sodium Bicarbonate 650 Mg Tab) 650 mg PO BID [facility] Stop: 11/11/21 20:59 Last Admin: 10/17/21 08:59 Dose: 650 mg Documented by: Sucralfate (Sucralfate 1 Gm/10 Ml Udc) 1 gm PO QID [facility] Stop: 11/08/21 12:59 Last Admin: 10/17/21 17:02 Dose: 1 gm Documented by: Tramadol HCl (Tramadol Hcl 50 Mg Tablet) 50 mg PO TID [facility] Stop: 11/10/21 15:04 Last Admin: 10/17/21 13:31 Dose: 50 mg Documented by: Ursodiol (Ursodiol 300 Mg Cap) 300 mg PO BID [facility] Stop: 11/05/21 20:59 Last Admin: 10/17/21 08:59 Dose: 300 mg Documented by: PG Care Time/CCT Total # of Minutes Spent Total Time Spent with Patient: Total time spent is greater than 50% in coordination of care (as documented) at patient's floor/unit and/or counseling patient: Coding Level of Care Code 48047 Subseq Hosp Care Lvl 2 Diagnoses Myopathy G72.9 Acute GI bleeding K92.2 COVID-19 U07.1 Abnormal LFTs R94.5 Elevated troponin R77.8 Chronic hyponatremia E87.1 Ischemic cardiomyopathy I25.5 CKD (chronic kidney disease) N18.9 Chronic kidney disease stage: unspecified stage CAD (coronary artery disease) I25.10 Coronary Disease-Associated Artery/Lesion type: [place] artery [place] vs. transplanted heart: [place] heart Associated angina: without angina Hypertension I10 Asthma J45.909 Rheumatoid arthritis M06.9 Hypothyroidism E03.9 Abnormal MRI, lumbar spine R93.7 Severe protein-calorie malnutrition E43 Neutropenia D70.9 (1) CKD (chronic kidney disease) Chronic kidney disease stage: unspecified stage Qualified Code(s): N18.9 - Chronic kidney disease, unspecified (2) CAD (coronary artery disease) Coronary Disease-Associated Artery/Lesion type: [place] artery [place] vs. transplanted heart: [place] heart Associated angina: without angina Qualified Code(s): I25.10 - Atherosclerotic heart disease of [place] coronary artery without angina pectoris
[2021-10-17] MEDS: GABAPENTIN 100 MG CAP PO SCH (20:37)
[2021-10-17] MEDS: guaiFENesin/CODEINE 100MG/10MG 5ML UDC PO PRN (20:38)
[2021-10-17] MEDS: QUEtiapine FUMARATE 25 MG TABLET PO SCH (20:40)
[2021-10-18] MEDS: LEVOTHYROXINE SODIUM 100 MCG TABLET PO SCH (06:35)
[2021-10-18 07:25] LABS: Hematocrit (blood only) 26.9 % (37-47); Hemoglobin 8.8 g/dL (12.0-16.0); Mean Corpuscular Hemoglobin 30.1 pg (25-34); Mean Corpuscular Hgb Conc 32.7 g/dL (32-36); Mean Corpuscular Volume 92.1 fL (80-100); Mean Platelet Volume 10.8 fL (7.4-10.4); Nucleated RBC # (auto) 0.03 K/uL (0-0); Nucleated RBC % (auto) 2.9 %; Platelet Count 248 K/uL (130-400); RDW Coefficient of Variation 16.1 % (11.5-14.5); RDW Standard Deviation 53.3 fL (36.4-46.3); Red Blood Count 2.92 M/uL (4.2-5.4); White Blood Count 0.96 K/uL (4.8-10.8)
[2021-10-18 07:26] LABS: Dohle Bodies 1+; Lymphocytes # (auto) 0.26 K/uL (1.2-3.4); Lymphocytes % (auto) 27.1 %; Monocytes # (auto) 0.18 K/uL (0.11-0.59); Monocytes % (auto) 18.8 %; Neutrophils # (auto) 0.52 K/uL (1.4-6.5); Neutrophils % (auto) 54.1 %; Toxic Granulation 1+
[2021-10-18 07:29] LABS: Albumin Level 1.2 gm/dl (3.4-5.0); BUN Creatinine Ratio 64.5 (10-20); Calcium 6.9 mg/dl (8.5-10.1); Creatinine Clr Calc Pharmacy 30.5 ml/min; Est GFR (African American) 42.8 ml/min; Est GFR (Non-African American) 36.9 ml/min; Phosphorus 2.4 mg/dl (2.5-4.9); Potassium 3.6 mmol/L (3.5-5.1)
[2021-10-18] MEDS: THIAMINE HCL 200 MG in SODIUM CHLORIDE 0.9% 50 ML IV SCH (08:55)
[2021-10-18] MEDS: INSULIN ASPART 100 UNITS/ML 3 ML PEN SC SCH ×4 (09:05→20:25)
[2021-10-18] MEDS: FLUTICASONE/SALMETEROL (ADVAIR) 500/50 INH 14 PUFF INH SCH ×2 (09:06→20:20)
[2021-10-18] MEDS: SUCRALFATE 1 GM/10 ML UDC PO SCH ×4 (09:06→20:22)
[2021-10-18] MEDS: carvediloL 12.5 MG TAB PO SCH ×2 (09:09→17:41)
[2021-10-18] MEDS: FERROUS SULFATE 325 MG TAB PO SCH ×2 (09:09→17:41)
[2021-10-18] MEDS: ASPIRIN 81 MG ECTAB PO SCH (09:09)
[2021-10-18] MEDS: HEPARIN SOD 5,000 UNIT/0.5 ML VIAL SQ SCH ×2 (09:10→20:23)
[2021-10-18] MEDS: CLOPIDOGREL BISULFATE 75 MG TAB PO SCH (09:10)
[2021-10-18] MEDS: methylPREDNISolone 20 MG in SYRINGE 0 ML IV SCH ×2 (09:10→20:22)
[2021-10-18] MEDS: BENZONATATE 100 MG CAPSULE PO SCH ×3 (09:10→20:20)
[2021-10-18] MEDS: guaiFENesin 600 MG TABCR PO SCH ×2 (09:10→20:17)
[2021-10-18] MEDS: ursodioL 300 MG CAP PO SCH ×2 (09:11→20:21)
[2021-10-18] MEDS: PANTOprazole 40 MG in SYRINGE 0 ML IV SCH ×2 (09:11→20:22)
[2021-10-18] MEDS: SODIUM BICARBONATE 650 MG TAB PO SCH (09:11)
[2021-10-18] MEDS: traMADol HCL 50 MG TABLET PO SCH ×3 (09:11→21:38)
--- NOTE | 2021-10-18 09:36 | Hospitalist Progress Note ---
Date of Service October 18, 2021 Assessment & Plan (1) Myopathy: Plan: Myositis, resolving but still weak CPK improved HOLDING her statin and giving steroids. in August during her NSTEMI admission her CPK was <500 leg weakness is due to myopathy ortho-spine formally consulted; reviewed MRI l-spine; findings do not explain her b/l, proximal muscle weakness, which reinforces dx of statin myopathy as she was placed on lipitor for first time following her NSTEMI cont to HOLD statin - placed on allergy list takes chronic steroids (methylprednisolone) -- cont to Rx with methylprednisolone 20mg BID; no change on that dose (2) Neutropenia: Plan: WBC has been drifting down, now with PMN < 1.0, WBC is < 1k no fever unclear etiology, reviewed medications, she is on hydroxychloroquine, has taken since 1996 could be acute viral illness? d/w Dr. Mina with hematology, appreciate her input will hold Seroquel as that is new, checked Vitamin B12 and Folic acid, both are normal give Neupogen daily x 3 days, daily CBC neutropenic precautions ordered (3) CKD (chronic kidney disease): Plan: STAGE 4 baseline CrCl <30 with JOAN resolving did have elevated K+ given veltassa stop bicarb drip Cr improved to 1.4 give Lasix 20mg IV x 1 with potassium, look for negative fluid balance next few days as she is edematous (4) Acute GI bleeding: Plan: hgb stable transfused 2 u prbc during stay end of August, was scoped at that time with EGD showing gastritis, cont PPI twice daily cont carafate qid poor candidate for stopping her asa/plavix due to recent NSTEMI and stents Hb is 8.8 (5) COVID-19: Plan: CT chest 10/11/21 b/l pneumonia c/w COVID pneumonia still not hypoxic - continue airborne precautions should likely come off airborne precautions on 10/16/2021 continue pulmonary toilet not a candidate for remdesivir due to lack of hypoxia and ARF current steroids are primarily for her RA and #1 check with infection control about coming off precautions (6) Abnormal LFTs: Plan: 2nd to statin; can't rule out COVID-19 playing a role as well holding lipitor repeat LFTs improving she does not have a gall bladder liver on CT appears largely normal (7) Elevated troponin: Plan: myocardial demand ischemia rather than recurrent NSTEMI (8) Chronic hyponatremia: Plan: stable (9) Ischemic cardiomyopathy: Plan: EF 25-30% on echo during admission for NSTEMI overall she is total body fluid overloaded (anasarca) from ARF, CHF and severe hypoalbuminemia but is intra-vascularly dry cont BB not YANG or ARB candidate due to CKD (10) CAD (coronary artery disease): Plan: as above (11) Hypertension: Plan: Controlled (12) Asthma: Plan: albuterol 2 puffs QID prn use advair due to formulary restrictions (13) Rheumatoid arthritis: Plan: no active flare at this time cont methylprednisolone cont plaquenil (14) Hypothyroidism: Plan: TSH earlier this month wnl cont synthroid (15) Abnormal MRI, lumbar spine: Plan: fluid in 2 vertebral levels on MRI likely DJD per both radiology and orthopecics she has chronic low back pain, but no change in her chronic symptoms she has no radicular symptoms she has no distal strength deficits (just proximal as in #1 above) (16) Severe protein-calorie malnutrition: Plan: albumin of <1.5 NO APPETITE COVID-19, depression (she denies such but states she is "angry"), recent cardiac issues, etc - all contributing to anorexia 3rd spacing due to low albumin steroids might help appetite Admission and Anticipated Discharge Date Admission Date: October 06, 2021 Subjective patient doing okay, still not eating great spoke with Dr. Mina about neutropenia, she thought it would be medication or infection induced as PMN normal on 10/14 will stop the Seroquel (this is new medication) and check B12 and folic acid levels give Neupogen 3 days patient has edema in her legs, Cr is 1.4, JOAN is resolved, will check with nephrology about low dose diuretic Review of Systems Review of Systems: All systems reviewed & are unremarkable except as noted in Subjective Gastrointestinal: + constipation Physical Exam Physical Exam: General: well developed, well nourished, no acute distress, comfortable, edematous Neck: supple, trachea midline, normal thyroid Lungs: clear to auscultation bilaterally, normal respiratory effort, no accessory muscle use, no distress Heart: regular S1 and S2, no murmur, peripheral pulses normal, capillary refill normal, + edema Abdomen: soft, NT, ND, + BS, no hepatomegaly, normal to percussion Extremities: normal in appearance, no cyanosis, no petechiae, strength is diminished bilaterally Neuro: awake, cooperative, moves all extremities, no focal motor deficits, CN II-XII intact Skin: thin skin, decreased turgor Psych: Awake, alert oriented x 3, euthymic affect Results & Data Results & Data ([facility]) Vital Signs (Past 12 Hours) Vital Signs Temp Pulse Pulse Resp BP Pulse Ox 10/18/21 07:39 36.8 C 68 18 107/52 L 92 10/18/21 00:00 65 10/17/21 22:50 36.7 C 69 18 91/46 L 92 Laboratory Results Laboratory Results - last 24 hr 10/17/21 10/17/21 10/17/21 09:08 09:08 09:08 WBC 1.36 L RBC 2.92 L Hgb 8.6 L Hct 26.8 L MCV 91.8 MCH 29.5 MCHC 32.1 RDW Std Deviation 52.7 H RDW Coeff of Sue 15.8 H Plt Count 242 MPV 10.8 H Immature Gran % (Auto) 0.7 Neut % (Auto) 67.7 Lymph % (Auto) 20.6 Stephenson % (Auto) 11.0 Eos % (Auto) 0.0 Baso % (Auto) 0.0 Neut # (Auto) 0.92 L* Lymph # (Auto) 0.28 L Stephenson # (Auto) 0.15 Eos # (Auto) 0.00 Baso # (Auto) 0.00 Immature Gran # (Auto) 0.01 Absolute Nucleated RBC Nucleated RBC % (auto) Toxic Granulation Dohle Bodies Sodium 133 L Potassium 3.5 Chloride 95 L Carbon Dioxide 28 Anion Gap 10.0 BUN 84 H Creatinine 1.39 H Est Cr Clr Drug Dosing 29.6 Est GFR ( Amer) 43.2 Est GFR (Non-Af Amer) 37.2 BUN/Creatinine Ratio 60.4 H Glucose 213 H POC Glucose Calcium 6.5 L Phosphorus 2.5 Iron 40 Transferrin 108 L Transferrin % Sat 26 Ferritin 1571.8 H Albumin 1.2 L 10/17/21 10/17/21 10/17/21 11:26 16:47 20:07 WBC RBC Hgb Hct MCV MCH MCHC RDW Std Deviation RDW Coeff of Sue Plt Count MPV Immature Gran % (Auto) Neut % (Auto) Lymph % (Auto) Stephenson % (Auto) Eos % (Auto) Baso % (Auto) Neut # (Auto) Lymph # (Auto) Stephenson # (Auto) Eos # (Auto) Baso # (Auto) Immature Gran # (Auto) Absolute Nucleated RBC Nucleated RBC % (auto) Toxic Granulation Dohle Bodies Sodium Potassium Chloride Carbon Dioxide Anion Gap BUN Creatinine Est Cr Clr Drug Dosing Est GFR ( Amer) Est GFR (Non-Af Amer) BUN/Creatinine Ratio Glucose POC Glucose 190 H 187 H 254 H Calcium Phosphorus Iron Transferrin Transferrin % Sat Ferritin Albumin 10/18/21 10/18/21 10/18/21 05:59 05:59 07:52 WBC 0.96 L* RBC 2.92 L Hgb 8.8 L Hct 26.9 L MCV 92.1 MCH 30.1 MCHC 32.7 RDW Std Deviation 53.3 H RDW Coeff of Sue 16.1 H Plt Count 248 MPV 10.8 H Immature Gran % (Auto) 0.0 Neut % (Auto) 54.1 Lymph % (Auto) 27.1 Stephenson % (Auto) 18.8 Eos % (Auto) 0.0 Baso % (Auto) 0.0 Neut # (Auto) 0.52 L* Lymph # (Auto) 0.26 L Stephenson # (Auto) 0.18 Eos # (Auto) 0.00 Baso # (Auto) 0.00 Immature Gran # (Auto) 0.00 Absolute Nucleated RBC 0.03 H Nucleated RBC % (auto) 2.9 Toxic Granulation 1+ Dohle Bodies 1+ Sodium 130 L Potassium 3.6 Chloride 95 L Carbon Dioxide 27 Anion Gap 8.0 BUN 90 H Creatinine 1.40 H Est Cr Clr Drug Dosing 30.5 Est GFR ( Amer) 42.8 Est GFR (Non-Af Amer) 36.9 BUN/Creatinine Ratio 64.5 H Glucose 216 H POC Glucose 226 H Calcium 6.9 L Phosphorus 2.4 L Iron Transferrin Transferrin % Sat Ferritin Albumin 1.2 L Medications Administered Current Inpatient Medications Acetaminophen (Acetaminophen 325 Mg Tab) 650 mg PO Q4H PRN PRN Reason: Pain or Fever Stop: 11/05/21 20:12 Last Admin: 10/11/21 06:18 Dose: 650 mg Documented by: Albuterol (Albuterol Hfa 8 Gm Inhaler) 2 puffs INH QIDR PRN PRN Reason: Shortness Of Breath Or Wheezing Stop: 11/09/21 16:59 Aspirin (Aspirin 81 Mg Ectab) 81 mg PO QAM [facility] Stop: 11/06/21 11:14 Last Admin: 10/18/21 09:09 Dose: 81 mg Documented by: Benzonatate (Benzonatate 100 Mg Capsule) 100 mg PO TID [facility] Stop: 11/09/21 13:59 Last Admin: 10/18/21 09:10 Dose: 100 mg Documented by: Bisacodyl (Bisacodyl 10 Mg Supp) 10 mg DE DAILY PRN PRN Reason: Constipation Stop: 11/05/21 20:12 Carvedilol (Carvedilol 12.5 Mg Tab) 12.5 mg PO BIDM [facility] Stop: 11/06/21 07:59 Last Admin: 10/18/21 09:09 Dose: 12.5 mg Documented by: Clopidogrel Bisulfate (Clopidogrel Bisulfate 75 Mg Tab) 75 mg PO [facility] Stop: 11/06/21 08:59 Last Admin: 10/18/21 09:10 Dose: 75 mg Documented by: Dextrose (Dextrose 50% 50 Ml Syringe) 25 - 50 ml IV UD PRN; Protocol PRN Reason: Hypoglycemia Protocol Stop: 11/06/21 09:04 Dextrose (Dextrose 50% 50 Ml Syringe) 25 - 50 ml IV UD PRN; Protocol PRN Reason: Hypoglycemia Protocol Stop: 11/14/21 20:40 Diclofenac Sodium (Diclofenac Sod 1% Gel 100 Gm Tube) 2 gm EXT QID PRN PRN Reason: Pain Stop: 11/05/21 20:12 Ferrous Sulfate (Ferrous Sulfate 325 Mg Tab) 325 mg PO BIDM [facility] Stop: 11/06/21 07:59 Last Admin: 10/18/21 09:09 Dose: 325 mg Documented by: Gabapentin (Gabapentin 100 Mg Cap) 200 mg PO [facility] Stop: 11/05/21 20:59 Last Admin: 10/17/21 20:37 Dose: 200 mg Documented by: Glucagon (Glucagon For Inj 1 Mg Vial) 1 mg SQ UD PRN; Protocol PRN Reason: Hypoglycemia Protocol Stop: 11/06/21 09:04 Glucagon (Glucagon For Inj 1 Mg Vial) 1 mg SQ UD PRN; Protocol PRN Reason: Hypoglycemia Protocol Stop: 11/14/21 20:40 Glucose (Glucose 10 Tabs/Tube) 4 - 8 tabs PO UD PRN; Protocol PRN Reason: Hypoglycemia Protocol Stop: 11/06/21 09:04 Glucose (Glucose 40% Gel 15 Gm Tube) 15 - 30 gm PO UD PRN; Protocol PRN Reason: Hypoglycemia Protocol Stop: 11/06/21 09:04 Glucose (Glucose 10 Tabs/Tube) 4 - 8 tabs PO UD PRN; Protocol PRN Reason: Hypoglycemia Protocol Stop: 11/14/21 20:40 Glucose (Glucose 40% Gel 15 Gm Tube) 15 - 30 gm PO UD PRN; Protocol PRN Reason: Hypoglycemia Protocol Stop: 11/14/21 20:40 Guaifenesin (Guaifenesin 600 Mg Tabcr) 1,200 mg PO BID [facility] Stop: 11/11/21 20:59 Last Admin: 10/18/21 09:10 Dose: 1,200 mg Documented by: Guaifenesin/Codeine Phosphate (Guaifenesin/Codeine 100mg/10mg 5ml Udc) 5 ml PO Q6H PRN PRN Reason: Cough Stop: 11/09/21 09:39 Last Admin: 10/17/21 20:38 Dose: 5 ml Documented by: Heparin Sodium (Porcine) (Heparin Sod 5,000 Unit/0.5 Ml Vial) 5,000 units SQ Q12 [facility] Stop: 11/09/21 20:59 Last Admin: 10/18/21 09:10 Dose: 5,000 units Documented by: Pantoprazole Sodium 40 mg/ (Syringe) 10 mls @ 5 mls/min IV BID [facility] Stop: 11/05/21 20:59 Last Admin: 10/18/21 09:11 Dose: 5 mls/min Documented by: Thiamine HCl 200 mg/ Sodium (Chloride) 52 mls @ 208 mls/hr IV QAM [facility] Stop: 11/06/21 11:29 Last Infusion: 10/18/21 09:26 Dose: Infused Documented by: Methylprednisolone 20 mg/ (Syringe) 0.32 mls @ 1.5 mls/min IV BID [facility] Stop: 11/08/21 09:59 Last Admin: 10/18/21 09:10 Dose: 1.5 mls/min Documented by: Insulin Aspart (Insulin Aspart 100 Units/Ml 3 Ml Pen) 0 units SC ACHS [facility] Stop: 11/14/21 20:59 Last Admin: 10/18/21 09:05 Dose: 3 units Documented by: Levothyroxine Sodium (Levothyroxine Sodium 100 Mcg Tablet) 100 mcg PO DAILYBB [facility] Stop: 11/06/21 06:29 Last Admin: 10/18/21 06:35 Dose: 100 mcg Documented by: Miscellaneous (Carbohydrates For Hypoglycemia ) 15 - 30 gm PO UD PRN PRN Reason: Hypoglycemia Protocol Stop: 11/06/21 09:04 Last Admin: 10/08/21 08:58 Dose: 30 gm Documented by: Miscellaneous (Carbohydrates For Hypoglycemia ) 15 - 30 gm PO UD PRN PRN Reason: Hypoglycemia Protocol Stop: 11/14/21 20:40 Nitroglycerin (Nitroglycerin Sl 0.4 Mg/Tab Tab) 0.4 mg SL UD PRN PRN Reason: Chest Pain Stop: 11/05/21 20:12 Ondansetron HCl (Ondansetron Inj 2 Mg/Ml 2 Ml Vial) 4 mg IV Q6H PRN PRN Reason: Nausea Stop: 11/05/21 20:12 Last Admin: 10/08/21 11:01 Dose: 4 mg Documented by: Quetiapine Fumarate (Quetiapine Fumarate 25 Mg Tablet) 25 mg PO HS [facility] Stop: 11/13/21 20:59 Last Admin: 10/17/21 20:40 Dose: 25 mg Documented by: Fluticasone/Salmeterol (Fluticasone/Salmeterol (Advair) 500/50 Inh 14 Puff) 1 puffs INH BID [facility] Stop: 11/11/21 10:59 Last Admin: 10/18/21 09:06 Dose: 1 puffs Documented by: Sodium Bicarbonate (Sodium Bicarbonate 650 Mg Tab) 650 mg PO BID [facility] Stop: 11/11/21 20:59 Last Admin: 10/18/21 09:11 Dose: 650 mg Documented by: Sucralfate (Sucralfate 1 Gm/10 Ml Udc) 1 gm PO QID [facility] Stop: 11/08/21 12:59 Last Admin: 10/18/21 09:06 Dose: 1 gm Documented by: Tramadol HCl (Tramadol Hcl 50 Mg Tablet) 50 mg PO TID [facility] Stop: 11/10/21 15:04 Last Admin: 10/18/21 09:11 Dose: 50 mg Documented by: Ursodiol (Ursodiol 300 Mg Cap) 300 mg PO BID [facility] Stop: 11/05/21 20:59 Last Admin: 10/18/21 09:11 Dose: 300 mg Documented by: PG Care Time/CCT Total # of Minutes Spent Total Time Spent with Patient: Total time spent is greater than 50% in coordination of care (as documented) at patient's floor/unit and/or counseling patient: Coding Level of Care Code 55799 Subseq Hosp Care Lvl 3 Diagnoses Myopathy G72.9 Neutropenia D70.9 CKD (chronic kidney disease) N18.9 Chronic kidney disease stage: unspecified stage Acute GI bleeding K92.2 COVID-19 U07.1 Abnormal LFTs R94.5 Elevated troponin R77.8 Chronic hyponatremia E87.1 Ischemic cardiomyopathy I25.5 CAD (coronary artery disease) I25.10 Associated angina: without angina Coronary Disease-Associated Artery/Lesion type: [place] artery [place] vs. transplanted heart: [place] heart Hypertension I10 Asthma J45.909 Rheumatoid arthritis M06.9 Hypothyroidism E03.9 Abnormal MRI, lumbar spine R93.7 Severe protein-calorie malnutrition E43 (1) CAD (coronary artery disease) Associated angina: without angina Coronary Disease-Associated Artery/Lesion type: [place] artery [place] vs. transplanted heart: [place] heart Qualified Code(s): I25.10 - Atherosclerotic heart disease of [place] coronary artery without angina pectoris (2) CKD (chronic kidney disease) Chronic kidney disease stage: unspecified stage Qualified Code(s): N18.9 - Chronic kidney disease, unspecified
[2021-10-18] MEDS ORDERED: FILGRASTIM 300 MCG/ML VIAL SQ ONE (10:15)
--- NOTE | 2021-10-18 10:20 | Nephrology Progress Note ---
Date of Service October 18, 2021 Assessment & Plan (1) Acute kidney injury: Plan: Consistent with prerenal physiology and ATN. Creatinine 1.4 mg/dL. Electrolytes normal. NaHCO3 supplement held. Document I/O's and metabolic profile daily while inpatient. Medications appropriate for kidney dysfunction. Agree with restarting diuretics (such as low dose furosemide) to encourage slightly negative fluid balance. I have nothing more to add and will sign-off or monitor labs peripherally. Please call with any questions or concerns. (2) CKD (chronic kidney disease): Plan: Follow up with Dr. Arellano post discharge. (3) Anemia: Plan: I will defer to hematology regarding management. Admission and Anticipated Discharge Date Admission Date: October 06, 2021 Subjective No acute events overnight. No complaints this AM. Patient was not physically seen due to COVID. Review of Systems Review of Systems: All systems reviewed & are unremarkable except as noted in HPI & below Physical Exam Physical Exam: Deferred Results & Data ([facility]) Vital Signs (Past 12 Hours) Vital Signs Temp Pulse Pulse Resp BP Pulse Ox 10/18/21 07:39 36.8 C 68 18 107/52 L 92 10/18/21 00:00 65 10/17/21 22:50 36.7 C 69 18 91/46 L 92 Laboratory Results Laboratory Results - last 24 hr 10/17/21 10/17/21 10/17/21 09:08 09:08 09:08 WBC 1.36 L RBC 2.92 L Hgb 8.6 L Hct 26.8 L MCV 91.8 MCH 29.5 MCHC 32.1 RDW Std Deviation 52.7 H RDW Coeff of Sue 15.8 H Plt Count 242 MPV 10.8 H Immature Gran % (Auto) 0.7 Neut % (Auto) 67.7 Lymph % (Auto) 20.6 [place] % (Auto) 11.0 Eos % (Auto) 0.0 Baso % (Auto) 0.0 Neut # (Auto) 0.92 L* Lymph # (Auto) 0.28 L [place] # (Auto) 0.15 Eos # (Auto) 0.00 Baso # (Auto) 0.00 Immature Gran # (Auto) 0.01 Absolute Nucleated RBC Nucleated RBC % (auto) Toxic Granulation Dohle Bodies Sodium 133 L Potassium 3.5 Chloride 95 L Carbon Dioxide 28 Anion Gap 10.0 BUN 84 H Creatinine 1.39 H Est Cr Clr Drug Dosing 29.6 Est GFR ( Amer) 43.2 Est GFR (Non-Af Amer) 37.2 BUN/Creatinine Ratio 60.4 H Glucose 213 H POC Glucose Calcium 6.5 L Phosphorus 2.5 Iron 40 Transferrin 108 L Transferrin % Sat 26 Ferritin 1571.8 H Albumin 1.2 L 10/17/21 10/17/21 10/17/21 11:26 16:47 20:07 WBC RBC Hgb Hct MCV MCH MCHC RDW Std Deviation RDW Coeff of Sue Plt Count MPV Immature Gran % (Auto) Neut % (Auto) Lymph % (Auto) [place] % (Auto) Eos % (Auto) Baso % (Auto) Neut # (Auto) Lymph # (Auto) [place] # (Auto) Eos # (Auto) Baso # (Auto) Immature Gran # (Auto) Absolute Nucleated RBC Nucleated RBC % (auto) Toxic Granulation Dohle Bodies Sodium Potassium Chloride Carbon Dioxide Anion Gap BUN Creatinine Est Cr Clr Drug Dosing Est GFR ( Amer) Est GFR (Non-Af Amer) BUN/Creatinine Ratio Glucose POC Glucose 190 H 187 H 254 H Calcium Phosphorus Iron Transferrin Transferrin % Sat Ferritin Albumin 10/18/21 10/18/21 10/18/21 05:59 05:59 07:52 WBC 0.96 L* RBC 2.92 L Hgb 8.8 L Hct 26.9 L MCV 92.1 MCH 30.1 MCHC 32.7 RDW Std Deviation 53.3 H RDW Coeff of Sue 16.1 H Plt Count 248 MPV 10.8 H Immature Gran % (Auto) 0.0 Neut % (Auto) 54.1 Lymph % (Auto) 27.1 Shelby % (Auto) 18.8 Eos % (Auto) 0.0 Baso % (Auto) 0.0 Neut # (Auto) 0.52 L* Lymph # (Auto) 0.26 L Shelby # (Auto) 0.18 Eos # (Auto) 0.00 Baso # (Auto) 0.00 Immature Gran # (Auto) 0.00 Absolute Nucleated RBC 0.03 H Nucleated RBC % (auto) 2.9 Toxic Granulation 1+ Dohle Bodies 1+ Sodium 130 L Potassium 3.6 Chloride 95 L Carbon Dioxide 27 Anion Gap 8.0 BUN 90 H Creatinine 1.40 H Est Cr Clr Drug Dosing 30.5 Est GFR ( Amer) 42.8 Est GFR (Non-Af Amer) 36.9 BUN/Creatinine Ratio 64.5 H Glucose 216 H POC Glucose 226 H Calcium 6.9 L Phosphorus 2.4 L Iron Transferrin Transferrin % Sat Ferritin Albumin 1.2 L PG Care Time/CCT Total # of Minutes Spent Total Time Spent with Patient: Total time spent is greater than 50% in coordination of care (as documented) at patient's floor/unit and/or counseling patient: Coding Level of Care Code 98299 Subseq Hosp Care Lvl 2 Diagnoses Acute kidney injury N17.9 CKD (chronic kidney disease) N18.9 Chronic kidney disease stage: unspecified stage Anemia D64.9 (1) CKD (chronic kidney disease) Chronic kidney disease stage: unspecified stage Qualified Code(s): N18.9 - Chronic kidney disease, unspecified
[2021-10-18 12:16] LABS: Vitamin B12 > 2000 pg/ml (193-986)
[2021-10-18] MEDS ORDERED: POLYETHYLENE (MIRALAX) 17 GM PACK PO ONE (16:36)
[2021-10-18] MEDS ORDERED: FUROSEMIDE INJ 20 MG/2 ML VIAL IV ONE (16:48)
[2021-10-18] MEDS: POTASSIUM CHLORIDE CRTAB 20 MEQ TABCR PO SCH (17:38)
[2021-10-18] MEDS: SENNA 8.6 MG TAB PO SCH ×2 (20:16→20:34)
[2021-10-18] MEDS: GABAPENTIN 100 MG CAP PO SCH (20:19)
[2021-10-19] MEDS: LEVOTHYROXINE SODIUM 100 MCG TABLET PO SCH (05:29)
[2021-10-19 07:11] LABS: Hematocrit (blood only) 26.5 % (37-47); Hemoglobin 8.6 g/dL (12.0-16.0); Mean Corpuscular Hemoglobin 30.2 pg (25-34); Mean Corpuscular Hgb Conc 32.5 g/dL (32-36); Mean Platelet Volume 11.2 fL (7.4-10.4); Nucleated RBC # (auto) 0.03 K/uL (0-0); Nucleated RBC % (auto) 3.3 %; Platelet Count 229 K/uL (130-400); RDW Coefficient of Variation 16.4 % (11.5-14.5); RDW Standard Deviation 55.4 fL (36.4-46.3); Red Blood Count 2.85 M/uL (4.2-5.4)
[2021-10-19 07:18] LABS: BUN Creatinine Ratio 65.5 (10-20); Calcium 7.4 mg/dl (8.5-10.1); Creatinine Clr Calc Pharmacy 30.8 ml/min; Est GFR (African American) 43.2 ml/min; Est GFR (Non-African American) 37.2 ml/min
[2021-10-19 07:59] LABS: Basophils # (auto) 0.01 K/uL (0-0.2); Basophils % (auto) 1.1 %; Eosinophils # (auto) 0.01 K/uL (0-0.5); Eosinophils % (auto) 1.1 %; Lymphocytes # (auto) 0.31 K/uL (1.2-3.4); Lymphocytes % (auto) 35.2 %; Monocytes # (auto) 0.13 K/uL (0.11-0.59); Monocytes % (auto) 14.8 %; Neutrophils # (auto) 0.42 K/uL (1.4-6.5); Neutrophils % (auto) 47.8 %
[2021-10-19 08:05] LABS: Giant Platelets 1+
--- NOTE | 2021-10-19 08:11 | Consultation Report ---
HEMATOLOGY CONSULTATION REASON FOR CONSULT: Neutropenia. HISTORY OF PRESENT ILLNESS: Ms. Herrera is a 75-year-old female who was admitted on 10/11/2021 with complaints of fatigue and lower extremity weakness. On admission, she was noted to have acute GI ble eding for which she had EGD, which revealed gastritis. She was also found to be COVID-[address] chest obtained on 10/11/2021 revealing bilateral pneumonia compatible with COVID pneumonia. Mo st recent labs had demonstrated gradually worsening neutropenia with CBC obtained today, 10/18/2021, significant for white cell count of 960 with ANC of 520. Hemoglobin was 8.8 and platelet count of 24 8. Of note, the patient's white cell count on 10/14/2021 was normal at 5.3. PAST MEDICAL HISTORY: 1. CKD stage III. 2. Hypertension. 3. Diabetes mellitus. 4. Chronic hyponatremia. PAST SURGICAL HISTORY: 1. History of cholecystectomy. 2. History of hysterectomy. 3. Status post laparoscopic appendectomy. 4. History of YANIQUE/BSO. MEDICATIONS PRIOR TO ADMISSION: 1. Tramadol 50 mg p.o. q. 12 hours p.r.n. 2. Pantoprazole 40 mg p.o. daily. 3. Levothyroxine 100 mcg p.o. daily. 4. Gabapentin 200 mg p.o. at bedtime. 5. Ferrous sulfate 325 mg p.o. b.i.d. 6. Carvedilol 12.5 mg p.o. b.i.d. 7. Clopidogrel 75 mg p.o. every day. 8. Atorvastatin 80 mg p.o. every day. ALLERGIES: AMOXICILLIN, CLAVULANIC ACID, IODINE, INFLIXIMAB, PENICILLINS, SULFA, STATINS ([facility]-COA RE DUCTASE INHIBITOR). SOCIAL HISTORY: Per review of records, no history of smoking, alcohol, or illicit drug use. FAMILY HISTORY: Significant for breast cancer in her aunt. REVIEW OF SYSTEMS: Unable to be obtained as the patient was not seen physically. PHYSICAL EXAMINATION: Not obtained. LABORATORY DATA: CBC from 10/18/2021 revealed white cell count of 960, hemoglobin of 8.8, hematocrit of 26.9 with MCV of 92.1, platelet count of 248, absolute neutrophil count of 520. Chemistry signif icant for sodium of 130, chloride of 95, BUN of 90, and creatinine of 1.40. IMPRESSION: 1. Neutropenia with ANC of 520. 2. Chronic anemia. 3. COVID-19 pneumonia A 75-year-old female with multiple comorbidities who was admitted for fatigue, lower extremity weakne ss due to myositis, anemia, and COVID-19 pneumonia. Most recent labs had revealed neutropenia with A NC of 520. Based on review of her prior CBCs, suspect that neutropenia is most likely medication/inf ection induced as her CBC less than 1 week ago had revealed normal white cell counts. Review of curr ent medications shows quetiapine, which could cause neutropenia. We recommend holding this if this w as a recent addition to her medication list. We would also recommend checking vitamin B12 and folate levels to rule out nutritional causes. Since ANC is around 500 in the setting of COVID-19 pneumonia , she would benefit from GCSF with Neupogen daily x3 days or until ANC is greater than 1000. PLAN: 1. Recommend checking vitamin B12 and folate levels. 2. Recommend discontinuing quetiapine/Seroquel if this is a new medication. 3. Please give Neupogen daily x3 days until ANC is above 1000. Thank you for this consult. Hematology will continue following the patient while in the hospital. Noah rg feel free to call if you have any further questions. Job ID: [id number]
[2021-10-19] MEDS: INSULIN ASPART 100 UNITS/ML 3 ML PEN SC SCH ×4 (09:00→20:48)
[2021-10-19] MEDS: THIAMINE HCL 200 MG in SODIUM CHLORIDE 0.9% 50 ML IV SCH (09:07)
[2021-10-19] MEDS: FILGRASTIM 300 MCG/ML VIAL SQ SCH (09:10)
[2021-10-19] MEDS: SUCRALFATE 1 GM/10 ML UDC PO SCH ×4 (09:12→20:44)
[2021-10-19] MEDS: FLUTICASONE/SALMETEROL (ADVAIR) 500/50 INH 14 PUFF INH SCH ×2 (09:12→20:48)
[2021-10-19] MEDS: guaiFENesin 600 MG TABCR PO SCH ×2 (09:16→20:45)
[2021-10-19] MEDS: HEPARIN SOD 5,000 UNIT/0.5 ML VIAL SQ SCH ×2 (09:16→20:48)
[2021-10-19] MEDS: carvediloL 12.5 MG TAB PO SCH ×2 (09:16→17:10)
[2021-10-19] MEDS: FERROUS SULFATE 325 MG TAB PO SCH ×2 (09:16→17:10)
[2021-10-19] MEDS: BENZONATATE 100 MG CAPSULE PO SCH ×3 (09:16→20:45)
[2021-10-19] MEDS: CLOPIDOGREL BISULFATE 75 MG TAB PO SCH (09:16)
[2021-10-19] MEDS: POTASSIUM CHLORIDE CRTAB 20 MEQ TABCR PO SCH (09:16)
[2021-10-19] MEDS: methylPREDNISolone 20 MG in SYRINGE 0 ML IV SCH ×2 (09:16→20:44)
[2021-10-19] MEDS: PANTOprazole 40 MG in SYRINGE 0 ML IV SCH ×2 (09:16→20:44)
[2021-10-19] MEDS: traMADol HCL 50 MG TABLET PO SCH ×3 (09:17→20:54)
[2021-10-19] MEDS: ursodioL 300 MG CAP PO SCH ×2 (09:17→20:45)
[2021-10-19] MEDS: SENNA 8.6 MG TAB PO SCH ×2 (09:17→20:46)
[2021-10-19] MEDS: ASPIRIN 81 MG ECTAB PO SCH (11:21)
--- NOTE | 2021-10-19 11:45 | Hospitalist Progress Note ---
Date of Service October 19, 2021 Assessment & Plan (1) Myopathy: Plan: Myositis, resolving but still weak CPK improved HOLDING her statin and giving steroids. in August during her NSTEMI admission her CPK was <500 leg weakness is due to myopathy ortho-spine formally consulted; reviewed MRI l-spine; findings do not explain her b/l, proximal muscle weakness, which reinforces dx of statin myopathy as she was placed on lipitor for first time following her NSTEMI cont to HOLD statin - placed on allergy list takes chronic steroids (methylprednisolone) -- cont to Rx with methylprednisolone 20mg BID; no change on that dose (2) Neutropenia: Plan: WBC has been drifting down, now with PMN < 1.0, WBC is < 1k no fever d/w Dr. Mina with hematology, appreciate her input will hold Seroquel as that is new, checked Vitamin B12 and Folic acid, both are normal give Neupogen daily x 3 days, daily CBC neutropenic precautions ordered temp was 37.7, not a true fever, no symptoms of being ill, will hold on antibiotics unless temp goes > 38 (3) CKD (chronic kidney disease): Plan: STAGE 4 baseline CrCl <30 with JOAN resolving did have elevated K+ given veltassa stop bicarb drip Cr improved to 1.3 Lasix 20mg qAM, negative fluid balance yesterday after starting (4) Acute GI bleeding: Plan: hgb stable transfused 2 u prbc during stay end of August, was scoped at that time with EGD showing gastritis, cont PPI twice daily cont carafate qid poor candidate for stopping her asa/plavix due to recent NSTEMI and stents Hb is 8.6 (5) COVID-19: Plan: CT chest 10/11/21 b/l pneumonia c/w COVID pneumonia still not hypoxic - continue airborne precautions should likely come off airborne precautions on 10/16/2021 continue pulmonary toilet not a candidate for remdesivir due to lack of hypoxia and ARF current steroids are primarily for her RA and #1 check with infection control about coming off precautions, since her temp was 37.7 we needs to keep in isolation a little longer (6) Abnormal LFTs: Plan: 2nd to statin; can't rule out COVID-19 playing a role as well holding lipitor repeat LFTs improving she does not have a gall bladder liver on CT appears largely normal (7) Elevated troponin: Plan: myocardial demand ischemia rather than recurrent NSTEMI (8) Chronic hyponatremia: Plan: stable (9) Ischemic cardiomyopathy: Plan: EF 25-30% on echo during admission for NSTEMI overall she is total body fluid overloaded (anasarca) from ARF, CHF and severe hypoalbuminemia but is intra-vascularly dry cont BB not YANG or ARB candidate due to CKD (10) CAD (coronary artery disease): Plan: as above (11) Hypertension: Plan: Controlled (12) Asthma: Plan: albuterol 2 puffs QID prn use advair due to formulary restrictions (13) Rheumatoid arthritis: Plan: no active flare at this time cont methylprednisolone cont plaquenil (14) Hypothyroidism: Plan: TSH earlier this month wnl cont synthroid (15) Abnormal MRI, lumbar spine: Plan: fluid in 2 vertebral levels on MRI likely DJD per both radiology and orthopecics she has chronic low back pain, but no change in her chronic symptoms she has no radicular symptoms she has no distal strength deficits (just proximal as in #1 above) (16) Severe protein-calorie malnutrition: Plan: albumin of <1.5 NO APPETITE COVID-19, depression (she denies such but states she is "angry"), recent cardiac issues, etc - all contributing to anorexia 3rd spacing due to low albumin steroids might help appetite Admission and Anticipated Discharge Date Admission Date: October 06, 2021 Subjective patient doing well, made a lot of urine with the Lasix, less edema but still more fluid to give reviewed labs, Cr is stable, K is stable WBC is still < 1 and she is neutropenic, temperature overnight of 37.7, so not a true fever and temp is normal today she is eating okay still very weak, interested in going to [facility] once medically stable she c/o the potassium pills, asks to stop them and resume Spironolactone, the KCl gives her bad gastritis Physical Exam Physical Exam: General: well developed, well nourished, no acute distress, comfortable, edematous Neck: supple, trachea midline, normal thyroid Lungs: clear to auscultation bilaterally, normal respiratory effort, no accessory muscle use, no distress Heart: regular S1 and S2, no murmur, peripheral pulses normal, capillary refill normal, + edema Abdomen: soft, NT, ND, + BS, no hepatomegaly, normal to percussion Extremities: normal in appearance, no cyanosis, no petechiae, strength is diminished bilaterally Neuro: awake, cooperative, moves all extremities, no focal motor deficits, CN II-XII intact Skin: thin skin, decreased turgor Psych: Awake, alert oriented x 3, euthymic affect Results & Data Results & Data ([facility]) Vital Signs (Past 12 Hours) Vital Signs Temp Pulse Pulse Resp BP Pulse Ox 10/19/21 07:47 36.8 C 74 18 113/65 91 10/19/21 07:27 70 10/19/21 03:51 37.0 C 70 18 117/72 93 Laboratory Results Laboratory Results - last 24 hr 10/18/21 10/18/21 10/18/21 10:50 16:47 20:03 WBC RBC Hgb Hct MCV MCH MCHC RDW Std Deviation RDW Coeff of Sue Plt Count MPV Immature Gran % (Auto) Neut % (Auto) Lymph % (Auto) [place] % (Auto) Eos % (Auto) Baso % (Auto) Neut # (Auto) Lymph # (Auto) [place] # (Auto) Eos # (Auto) Baso # (Auto) Immature Gran # (Auto) Absolute Nucleated RBC Nucleated RBC % (auto) Giant Platelets Sodium Potassium Chloride Carbon Dioxide Anion Gap BUN Creatinine Est Cr Clr Drug Dosing Est GFR ( Amer) Est GFR (Non-Af Amer) BUN/Creatinine Ratio Glucose POC Glucose 207 H 239 H Calcium Vitamin B12 > 2000 H Folate 7.50 10/19/21 10/19/21 10/19/21 06:22 06:22 07:14 WBC 0.90 L* RBC 2.85 L Hgb 8.6 L Hct 26.5 L MCV 93.0 MCH 30.2 MCHC 32.5 RDW Std Deviation 55.4 H RDW Coeff of Sue 16.4 H Plt Count 229 MPV 11.2 H Immature Gran % (Auto) 0.0 Neut % (Auto) 47.8 Lymph % (Auto) 35.2 [place] % (Auto) 14.8 Eos % (Auto) 1.1 Baso % (Auto) 1.1 Neut # (Auto) 0.42 L* Lymph # (Auto) 0.31 L [place] # (Auto) 0.13 Eos # (Auto) 0.01 Baso # (Auto) 0.01 Immature Gran # (Auto) 0.00 Absolute Nucleated RBC 0.03 H Nucleated RBC % (auto) 3.3 Giant Platelets 1+ Sodium 131 L Potassium 4.0 Chloride 96 L Carbon Dioxide 28 Anion Gap 7.0 BUN 91 H Creatinine 1.39 H Est Cr Clr Drug Dosing 30.8 Est GFR ( Amer) 43.2 Est GFR (Non-Af Amer) 37.2 BUN/Creatinine Ratio 65.5 H Glucose 190 H POC Glucose 189 H Calcium 7.4 L Vitamin B12 Folate Medications Administered Current Inpatient Medications Acetaminophen (Acetaminophen 325 Mg Tab) 650 mg PO Q4H PRN PRN Reason: Pain or Fever Stop: 11/05/21 20:12 Last Admin: 10/11/21 06:18 Dose: 650 mg Documented by: Albuterol (Albuterol Hfa 8 Gm Inhaler) 2 puffs INH QIDR PRN PRN Reason: Shortness Of Breath Or Wheezing Stop: 11/09/21 16:59 Aspirin (Aspirin 81 Mg Ectab) [facility] [place] Stop: 11/06/21 11:14 Last Admin: 10/19/21 11:21 Dose: 81 mg Documented by: Benzonatate (Benzonatate 100 Mg Capsule) 100 mg PO TID [facility] Stop: 11/09/21 13:59 Last Admin: 10/19/21 09:16 Dose: 100 mg Documented by: Bisacodyl (Bisacodyl 10 Mg Supp) 10 mg ND DAILY PRN PRN Reason: Constipation Stop: 11/05/21 20:12 Carvedilol (Carvedilol 12.5 Mg Tab) 12.5 mg PO BIDM [facility] Stop: 11/06/21 07:59 Last Admin: 10/19/21 09:16 Dose: 12.5 mg Documented by: Clopidogrel Bisulfate (Clopidogrel Bisulfate 75 Mg Tab) 75 mg PO QAM [facility] Stop: 11/06/21 08:59 Last Admin: 10/19/21 09:16 Dose: 75 mg Documented by: Dextrose (Dextrose 50% 50 Ml Syringe) 25 - 50 ml IV UD PRN; Protocol PRN Reason: Hypoglycemia Protocol Stop: 11/14/21 20:40 Diclofenac Sodium (Diclofenac Sod 1% Gel 100 Gm Tube) 2 gm EXT QID PRN PRN Reason: Pain Stop: 11/05/21 20:12 Ferrous Sulfate (Ferrous Sulfate 325 Mg Tab) 325 mg PO BIDM [facility] Stop: 11/06/21 07:59 Last Admin: 10/19/21 09:16 Dose: 325 mg Documented by: Filgrastim (Filgrastim 300 Mcg/Ml Vial) 300 mcg SQ QAM [facility] Stop: 10/20/21 09:01 Last Admin: 10/19/21 09:10 Dose: 300 mcg Documented by: Furosemide (Furosemide Inj 20 Mg/2 Ml Vial) 20 mg IV QAM [facility] Stop: 10/21/21 09:01 Gabapentin (Gabapentin 100 Mg Cap) 200 mg PO HS [facility] Stop: 11/05/21 20:59 Last Admin: 10/18/21 20:19 Dose: 200 mg Documented by: Glucagon (Glucagon For Inj 1 Mg Vial) 1 mg SQ UD PRN; Protocol PRN Reason: Hypoglycemia Protocol Stop: 11/14/21 20:40 Glucose (Glucose 10 Tabs/Tube) 4 - 8 tabs PO UD PRN; Protocol PRN Reason: Hypoglycemia Protocol Stop: 11/14/21 20:40 Glucose (Glucose 40% Gel 15 Gm Tube) 15 - 30 gm PO UD PRN; Protocol PRN Reason: Hypoglycemia Protocol Stop: 11/14/21 20:40 Guaifenesin (Guaifenesin 600 Mg Tabcr) 1,200 mg PO BID [facility] Stop: 11/11/21 20:59 Last Admin: 10/19/21 09:16 Dose: 1,200 mg Documented by: Guaifenesin/Codeine Phosphate (Guaifenesin/Codeine 100mg/10mg 5ml Udc) 5 ml PO Q6H PRN PRN Reason: Cough Stop: 11/09/21 09:39 Last Admin: 10/17/21 20:38 Dose: 5 ml Documented by: Heparin Sodium (Porcine) (Heparin Sod 5,000 Unit/0.5 Ml Vial) 5,000 units SQ Q12 [facility] Stop: 11/09/21 20:59 Last Admin: 10/19/21 09:16 Dose: 5,000 units Documented by: Pantoprazole Sodium 40 mg/ (Syringe) 10 mls @ 5 mls/min IV BID [facility] Stop: 11/05/21 20:59 Last Admin: 10/19/21 09:16 Dose: 5 mls/min Documented by: Thiamine HCl 200 mg/ Sodium (Chloride) 52 mls @ 208 mls/hr IV QAM [facility] Stop: 11/06/21 11:29 Last Infusion: 10/19/21 10:57 Dose: Infused Documented by: Methylprednisolone 20 mg/ (Syringe) 0.32 mls @ 1.5 mls/min IV BID [facility] Stop: 11/08/21 09:59 Last Admin: 10/19/21 09:16 Dose: 1.5 mls/min Documented by: Insulin Aspart (Insulin Aspart 100 Units/Ml 3 Ml Pen) 0 units SC ACHS [facility] Stop: 11/14/21 20:59 Last Admin: 10/19/21 09:00 Dose: 2 units Documented by: Levothyroxine Sodium (Levothyroxine Sodium 100 Mcg Tablet) 100 mcg PO DAILYBB [facility] Stop: 11/06/21 06:29 Last Admin: 10/19/21 05:29 Dose: 100 mcg Documented by: Miscellaneous (Carbohydrates For Hypoglycemia ) 15 - 30 gm PO UD PRN PRN Reason: Hypoglycemia Protocol Stop: 11/14/21 20:40 Nitroglycerin (Nitroglycerin Sl 0.4 Mg/Tab Tab) 0.4 mg SL UD PRN PRN Reason: Chest Pain Stop: 11/05/21 20:12 Ondansetron HCl (Ondansetron Inj 2 Mg/Ml 2 Ml Vial) 4 mg IV Q6H PRN PRN Reason: Nausea Stop: 11/05/21 20:12 Last Admin: 10/08/21 11:01 Dose: 4 mg Documented by: Potassium Chloride (Potassium Chloride Crtab 20 Meq Tabcr) 20 meq PO BID17 [facility] Stop: 11/17/21 16:59 Last Admin: 10/19/21 09:16 Dose: 20 meq Documented by: Fluticasone/Salmeterol (Fluticasone/Salmeterol (Advair) 500/50 Inh 14 Puff) 1 puffs INH BID [facility] Stop: 11/11/21 10:59 Last Admin: 10/19/21 09:12 Dose: 1 puffs Documented by: Sennosides (Senna 8.6 Mg Tab) 8.6 mg PO BID [facility] Stop: 11/17/21 20:59 Last Admin: 10/19/21 09:17 Dose: 8.6 mg Documented by: Sucralfate (Sucralfate 1 Gm/10 Ml Udc) 1 gm PO QID [facility] Stop: 11/08/21 12:59 Last Admin: 10/19/21 09:12 Dose: 1 gm Documented by: Tramadol HCl (Tramadol Hcl 50 Mg Tablet) 50 mg PO TID [facility] Stop: 11/10/21 15:04 Last Admin: 10/19/21 09:17 Dose: 50 mg Documented by: Ursodiol (Ursodiol 300 Mg Cap) 300 mg PO BID [facility] Stop: 11/05/21 20:59 Last Admin: 10/19/21 09:17 Dose: 300 mg Documented by: PG Care Time/CCT Total # of Minutes Spent Total Time Spent with Patient: Total time spent is greater than 50% in coordination of care (as documented) at patient's floor/unit and/or counseling patient: Coding Level of Care Code 74860 Subseq Hosp Care Lvl 2 Diagnoses Myopathy G72.9 Neutropenia D70.9 CKD (chronic kidney disease) N18.9 Chronic kidney disease stage: unspecified stage Acute GI bleeding K92.2 COVID-19 U07.1 Abnormal LFTs R94.5 Elevated troponin R77.8 Chronic hyponatremia E87.1 Ischemic cardiomyopathy I25.5 CAD (coronary artery disease) I25.10 Associated angina: without angina Coronary Disease-Associated Artery/Lesion type: [place] artery [place] vs. transplanted heart: [place] heart Hypertension I10 Asthma J45.909 Rheumatoid arthritis M06.9 Hypothyroidism E03.9 Abnormal MRI, lumbar spine R93.7 Severe protein-calorie malnutrition E43 (1) CAD (coronary artery disease) Associated angina: without angina Coronary Disease-Associated Artery/Lesion type: [place] artery [place] vs. transplanted heart: [place] heart Qualified Code(s): I25.10 - Atherosclerotic heart disease of [place] coronary artery without angina pectoris (2) CKD (chronic kidney disease) Chronic kidney disease stage: unspecified stage Qualified Code(s): N18.9 - Chronic kidney disease, unspecified
[2021-10-19] MEDS: FUROSEMIDE INJ 20 MG/2 ML VIAL IV SCH (13:42)
[2021-10-19] MEDS: ACETAMINOPHEN 325 MG TAB PO PRN (18:22)
[2021-10-19] MEDS: GABAPENTIN 100 MG CAP PO SCH (20:46)
[2021-10-19] MEDS: ONDANSETRON INJ 2 MG/ML 2 ML VIAL IV PRN (21:33)
[2021-10-20] MEDS ORDERED: METOCLOPRAMIDE HCL INJ 5 MG/ML 2 ML VIAL IV ONE (01:48)
[2021-10-20 04:20] LABS: Hematocrit (blood only) 24.4 % (37-47); Hemoglobin 7.8 g/dL (12.0-16.0); Mean Corpuscular Hemoglobin 29.9 pg (25-34); Mean Corpuscular Volume 93.5 fL (80-100); Mean Platelet Volume 11.7 fL (7.4-10.4); Nucleated RBC # (auto) 0.12 K/uL (0-0); Nucleated RBC % (auto) 4.9 %; Platelet Count 204 K/uL (130-400); RDW Coefficient of Variation 16.8 % (11.5-14.5); RDW Standard Deviation 56.5 fL (36.4-46.3); Red Blood Count 2.61 M/uL (4.2-5.4); White Blood Count 2.44 K/uL (4.8-10.8)
[2021-10-20 05:08] LABS: BUN Creatinine Ratio 66.5 (10-20); Calcium 7.1 mg/dl (8.5-10.1); Creatinine Clr Calc Pharmacy 27.8 ml/min; Est GFR (African American) 38.1 ml/min; Est GFR (Non-African American) 32.9 ml/min
[2021-10-20 05:38] LABS: Basophils # (auto) 0.01 K/uL (0-0.2); Basophils % (auto) 0.4 %; Dohle Bodies 1+; Echinocytes 1+; Immature Granulocytes # (auto) 0.02 K/uL (0.00-0.02); Immature Granulocytes % (auto) 0.8 %; Lymphocytes # (auto) 0.39 K/uL (1.2-3.4); Monocytes # (auto) 0.17 K/uL (0.11-0.59); Neutrophils # (auto) 1.85 K/uL (1.4-6.5); Neutrophils % (auto) 75.8 %; Toxic Granulation 1+
[2021-10-20] MEDS: LEVOTHYROXINE SODIUM 100 MCG TABLET PO SCH (06:24)
[2021-10-20] MEDS ORDERED: SODIUM CHLORIDE 0.9% 250 ML IV PRN (06:29)
--- NOTE | 2021-10-20 06:35 | Communication Note ---
Date of Service: October 20, 2021 Subjective: nursing notified me that the patient was having bloody stool. Pt. not lightheaded, no chest pain. Objective: soft BP, poor urine output hgb 7.8 A/P: - working on getting IV access as the patient does not currently have an IV that will support blood - given CAD continued bloody stool 2U of PRB wer ordered
[2021-10-20] MEDS: traMADol HCL 50 MG TABLET PO SCH ×3 (09:48→21:59)
[2021-10-20] MEDS: HYDROXYCHLOROQUINE SULFATE 200 MG TAB PO SCH (09:49)
[2021-10-20] MEDS: BENZONATATE 100 MG CAPSULE PO SCH ×3 (09:49→22:01)
[2021-10-20] MEDS: FERROUS SULFATE 325 MG TAB PO SCH ×2 (09:50→17:22)
[2021-10-20] MEDS: carvediloL 12.5 MG TAB PO SCH ×2 (09:51→17:22)
[2021-10-20] MEDS: CLOPIDOGREL BISULFATE 75 MG TAB PO SCH (09:51)
[2021-10-20] MEDS: SPIRONOLACTONE 25 MG TAB PO SCH (09:52)
[2021-10-20] MEDS: ASPIRIN 81 MG ECTAB PO SCH (09:52)
[2021-10-20] MEDS: SUCRALFATE 1 GM/10 ML UDC PO SCH ×4 (09:53→22:02)
[2021-10-20] MEDS: ursodioL 300 MG CAP PO SCH ×3 (09:53→22:40)
[2021-10-20] MEDS: SENNA 8.6 MG TAB PO SCH ×2 (09:54→22:03)
[2021-10-20] MEDS: FLUTICASONE/SALMETEROL (ADVAIR) 500/50 INH 14 PUFF INH SCH ×2 (09:54→22:00)
[2021-10-20] MEDS: guaiFENesin 600 MG TABCR PO SCH ×3 (09:54→22:39)
[2021-10-20] MEDS: INSULIN ASPART 100 UNITS/ML 3 ML PEN SC SCH ×4 (10:11→22:05)
[2021-10-20] MEDS: HEPARIN SOD 5,000 UNIT/0.5 ML VIAL SQ SCH ×2 (10:12→22:03)
--- NOTE | 2021-10-20 12:07 | Hospitalist Progress Note ---
Date of Service October 20, 2021 Assessment & Plan (1) Myopathy: Plan: Myositis, very weak CPK improved HOLDING her statin and giving steroids. in August during her NSTEMI admission her CPK was <500 leg weakness is due to myopathy ortho-spine formally consulted; reviewed MRI l-spine; findings do not explain her b/l, proximal muscle weakness, which reinforces dx of statin myopathy as she was placed on lipitor for first time following her NSTEMI cont to HOLD statin - placed on allergy list takes chronic steroids (methylprednisolone) -- cont to Rx with methylprednisolone 20mg BID; no change on that dose (2) Neutropenia: Plan: WBC drifted down, PMN < 1.0, WBC is < 1k no fever d/w Dr. Mina with hematology, appreciate her input will hold Seroquel as that is new, checked Vitamin B12 and Folic acid, both are normal give Neupogen daily x 3 days, daily CBC neutropenic precautions ordered WBC up to 2.4 and PMN are > 1, no longer neutropenic, last dose of Neupogen today (3) CKD (chronic kidney disease): Plan: STAGE 4 baseline CrCl <30 with JOAN resolving did have elevated K+ given veltassa stop bicarb drip Cr improved to 1.5 BUN up to 100, suspect this is due to the GI bleeding Lasix 20mg qAM, negative fluid balance yesterday after starting (4) Acute GI bleeding: Plan: hgb stable transfused 2 u prbc during stay end of August, was scoped at that time with EGD showing gastritis, cont PPI twice daily now with more evidence of GI bleeding, Hb 7.8, with her CAD will transfuse 2 units check CBC tomorrow tolerating transfusion she has no interest in scopes BP was a little low but now better (5) COVID-19: Plan: CT chest 10/11/21 b/l pneumonia c/w COVID pneumonia still not hypoxic - continue airborne precautions should likely come off airborne precautions on 10/16/2021 continue pulmonary toilet not a candidate for remdesivir due to lack of hypoxia and ARF current steroids are primarily for her RA and #1 (6) Abnormal LFTs: Plan: 2nd to statin; can't rule out COVID-19 playing a role as well holding lipitor repeat LFTs improving she does not have a gall bladder liver on CT appears largely normal (7) Elevated troponin: Plan: myocardial demand ischemia rather than recurrent NSTEMI (8) Chronic hyponatremia: Plan: stable (9) Ischemic cardiomyopathy: Plan: EF 25-30% on echo during admission for NSTEMI overall she is total body fluid overloaded (anasarca) from ARF, CHF and severe hypoalbuminemia but is intra-vascularly dry cont BB not YANG or ARB candidate due to CKD (10) CAD (coronary artery disease): Plan: as above (11) Hypertension: Plan: Controlled (12) Asthma: Plan: albuterol 2 puffs QID prn use advair due to formulary restrictions (13) Rheumatoid arthritis: Plan: no active flare at this time cont methylprednisolone cont plaquenil (14) Hypothyroidism: Plan: TSH earlier this month wnl cont synthroid (15) Abnormal MRI, lumbar spine: Plan: fluid in 2 vertebral levels on MRI likely DJD per both radiology and orthopecics she has chronic low back pain, but no change in her chronic symptoms she has no radicular symptoms she has no distal strength deficits (just proximal as in #1 above) (16) Severe protein-calorie malnutrition: Plan: albumin of <1.5 NO APPETITE COVID-19, depression (she denies such but states she is "angry"), recent cardiac issues, etc - all contributing to anorexia 3rd spacing due to low albumin steroids might help appetite Admission and Anticipated Discharge Date Admission Date: October 06, 2021 Subjective patient had a bloody stool overnight Hb was 7.8 when checked, noted that her BUN was trending up she was typed and crossed for 2 units and new IV site was placed by IV team WBC is now 2.4 and PMN are > 1 so no longer neutropenic, last dose of Neupogen Cr is stable at 1.54, K is 5.0 Review of Systems Review of Systems: All systems reviewed & are unremarkable except as noted in Subjective Constitutional: + fatigue and + weakness; no fever Respiratory: no cough and no dyspnea Cardiovascular: no chest pain Gastrointestinal: + blood in stools; no abdominal pain, no nausea, no vomiting, no constipation and no diarrhea/loose stools Physical Exam Physical Exam: General: well developed, well nourished, no acute distress, comfortable, edematous Neck: supple, trachea midline, normal thyroid Lungs: clear to auscultation bilaterally, normal respiratory effort, no accessory muscle use, no distress Heart: regular S1 and S2, no murmur, peripheral pulses normal, capillary refill normal, + edema Abdomen: soft, NT, ND, + BS, no hepatomegaly, normal to percussion Extremities: normal in appearance, no cyanosis, no petechiae, strength is diminished bilaterally Neuro: awake, cooperative, moves all extremities, no focal motor deficits, CN II-XII intact Skin: thin skin, decreased turgor Psych: Awake, alert oriented x 3, euthymic affect Results & Data Results & Data ([facility]) Vital Signs (Past 12 Hours) Vital Signs Temp Pulse Pulse Resp BP BP Pulse Ox 10/20/21 11:38 36.8 C 83 18 101/67 95 10/20/21 10:38 36.8 C 79 18 115/72 96 10/20/21 09:38 36.8 C 87 18 106/67 96 10/20/21 09:15 36.8 C 85 18 116/76 92 10/20/21 08:53 36.8 C 85 18 116/76 92 10/20/21 08:34 36.9 C 83 18 105/65 94 10/20/21 07:51 36.7 C 84 18 93/58 L 93 10/20/21 07:50 80 10/20/21 02:36 36.7 C 83 20 94/61 L 92 Laboratory Results Laboratory Results - last 24 hr 10/06/21 10/19/21 10/19/21 16:14 16:38 19:55 WBC RBC Hgb Hct MCV MCH MCHC RDW Std Deviation RDW Coeff of Sue Plt Count MPV Immature Gran % (Auto) Neut % (Auto) Lymph % (Auto) [place] % (Auto) Eos % (Auto) Baso % (Auto) Neut # (Auto) Lymph # (Auto) [place] # (Auto) Eos # (Auto) Baso # (Auto) Immature Gran # (Auto) Absolute Nucleated RBC Nucleated RBC % (auto) Toxic Granulation Dohle Bodies Echinocytes Sodium Potassium Chloride Carbon Dioxide Anion Gap BUN Creatinine Est Cr Clr Drug Dosing Est GFR ( Amer) Est GFR (Non-Af Amer) BUN/Creatinine Ratio Glucose POC Glucose 189 H 190 H Calcium Blood Type Antibody Screen Crossmatch See Detail 10/20/21 10/20/21 10/20/21 03:32 03:41 06:46 WBC 2.44 L RBC 2.61 L Hgb 7.8 L Hct 24.4 L MCV 93.5 MCH 29.9 MCHC 32.0 RDW Std Deviation 56.5 H RDW Coeff of Sue 16.8 H Plt Count 204 MPV 11.7 H Immature Gran % (Auto) 0.8 Neut % (Auto) 75.8 Lymph % (Auto) 16.0 [place] % (Auto) 7.0 Eos % (Auto) 0.0 Baso % (Auto) 0.4 Neut # (Auto) 1.85 Lymph # (Auto) 0.39 L [place] # (Auto) 0.17 Eos # (Auto) 0.00 Baso # (Auto) 0.01 Immature Gran # (Auto) 0.02 Absolute Nucleated RBC 0.12 H Nucleated RBC % (auto) 4.9 Toxic Granulation 1+ Dohle Bodies 1+ Echinocytes 1+ Sodium 132 L Potassium 5.0 D Chloride 99 Carbon Dioxide 24 Anion Gap 9.0 BUN 102 H Creatinine 1.54 H Est Cr Clr Drug Dosing 27.8 Est GFR ( Amer) 38.1 Est GFR (Non-Af Amer) 32.9 BUN/Creatinine Ratio 66.5 H Glucose 153 H POC Glucose Calcium 7.1 L Blood Type A Positive Antibody Screen NEGATIVE Crossmatch See Detail 10/20/21 10/20/21 07:58 11:37 WBC RBC Hgb Hct MCV MCH MCHC RDW Std Deviation RDW Coeff of Sue Plt Count MPV Immature Gran % (Auto) Neut % (Auto) Lymph % (Auto) [place] % (Auto) Eos % (Auto) Baso % (Auto) Neut # (Auto) Lymph # (Auto) [place] # (Auto) Eos # (Auto) Baso # (Auto) Immature Gran # (Auto) Absolute Nucleated RBC Nucleated RBC % (auto) Toxic Granulation Dohle Bodies Echinocytes Sodium Potassium Chloride Carbon Dioxide Anion Gap BUN Creatinine Est Cr Clr Drug Dosing Est GFR ( Amer) Est GFR (Non-Af Amer) BUN/Creatinine Ratio Glucose POC Glucose 160 H 160 H Calcium Blood Type Antibody Screen Crossmatch Medications Administered Current Inpatient Medications Acetaminophen (Acetaminophen 325 Mg Tab) 650 mg PO Q4H PRN PRN Reason: Pain or Fever Stop: 11/05/21 20:12 Last Admin: 10/19/21 18:22 Dose: 650 mg Documented by: Albuterol (Albuterol Hfa 8 Gm Inhaler) 2 puffs INH QIDR PRN PRN Reason: Shortness Of Breath Or Wheezing Stop: 11/09/21 16:59 Aspirin (Aspirin 81 Mg Ectab) 81 mg PO QAM [facility] Stop: 11/06/21 11:14 Last Admin: 10/20/21 09:52 Dose: 81 mg Documented by: Benzonatate (Benzonatate 100 Mg Capsule) 100 mg PO TID [facility] Stop: 11/09/21 13:59 Last Admin: 10/20/21 09:49 Dose: 100 mg Documented by: Bisacodyl (Bisacodyl 10 Mg Supp) 10 mg [place] DAILY PRN PRN Reason: Constipation Stop: 11/05/21 20:12 Carvedilol (Carvedilol 12.5 Mg Tab) 12.5 mg PO BIDM [facility] Stop: 11/06/21 07:59 Last Admin: 10/20/21 09:51 Dose: 12.5 mg Documented by: Clopidogrel Bisulfate (Clopidogrel Bisulfate 75 Mg Tab) [facility] Stop: 11/06/21 08:59 Last Admin: 10/20/21 09:51 Dose: 75 mg Documented by: Dextrose (Dextrose 50% 50 Ml Syringe) 25 - 50 ml IV UD PRN; Protocol PRN Reason: Hypoglycemia Protocol Stop: 11/14/21 20:40 Diclofenac Sodium (Diclofenac Sod 1% Gel 100 Gm Tube) 2 gm EXT QID PRN PRN Reason: Pain Stop: 11/05/21 20:12 Ferrous Sulfate (Ferrous Sulfate 325 Mg Tab) 325 mg PO BIDM [facility] Stop: 11/06/21 07:59 Last Admin: 10/20/21 09:50 Dose: 325 mg Documented by: Furosemide (Furosemide Inj 20 Mg/2 Ml Vial) 20 mg IV QAM [facility] Stop: 10/21/21 09:01 Last Admin: 10/19/21 13:42 Dose: 20 mg Documented by: Gabapentin (Gabapentin 100 Mg Cap) 200 mg PO HS [facility] Stop: 11/05/21 20:59 Last Admin: 10/19/21 20:46 Dose: 200 mg Documented by: Glucagon (Glucagon For Inj 1 Mg Vial) 1 mg SQ UD PRN; Protocol PRN Reason: Hypoglycemia Protocol Stop: 11/14/21 20:40 Glucose (Glucose 10 Tabs/Tube) 4 - 8 tabs PO UD PRN; Protocol PRN Reason: Hypoglycemia Protocol Stop: 11/14/21 20:40 Glucose (Glucose 40% Gel 15 Gm Tube) 15 - 30 gm PO UD PRN; Protocol PRN Reason: Hypoglycemia Protocol Stop: 11/14/21 20:40 Guaifenesin (Guaifenesin 600 Mg Tabcr) 1,200 mg PO BID [facility] Stop: 11/11/21 20:59 Last Admin: 10/20/21 09:54 Dose: Not Given Documented by: Guaifenesin/Codeine Phosphate (Guaifenesin/Codeine 100mg/10mg 5ml Udc) 5 ml PO Q6H PRN PRN Reason: Cough Stop: 11/09/21 09:39 Last Admin: 10/17/21 20:38 Dose: 5 ml Documented by: Heparin Sodium (Porcine) (Heparin Sod 5,000 Unit/0.5 Ml Vial) 5,000 units SQ Q12 [facility] Stop: 11/09/21 20:59 Last Admin: 10/20/21 10:12 Dose: 5,000 units Documented by: Hydroxychloroquine Sulfate (Hydroxychloroquine Sulfate 200 Mg Tab) 200 mg PO DAILY [facility] Stop: 11/19/21 08:59 Last Admin: 10/20/21 09:49 Dose: 200 mg Documented by: Pantoprazole Sodium 40 mg/ (Syringe) 10 mls @ 5 mls/min IV BID [facility] Stop: 11/05/21 20:59 Last Admin: 10/19/21 20:44 Dose: 5 mls/min Documented by: Thiamine HCl 200 mg/ Sodium (Chloride) 52 mls @ 208 mls/hr IV QAM [facility] Stop: 11/06/21 11:29 Last Infusion: 10/19/21 10:57 Dose: Infused Documented by: Methylprednisolone 20 mg/ (Syringe) 0.32 mls @ 1.5 mls/min IV BID [facility] Stop: 11/08/21 09:59 Last Admin: 10/19/21 20:44 Dose: 1.5 mls/min Documented by: Sodium Chloride (Nss) 250 mls @ 15 mls/hr IV .[id number] PRN PRN Reason: For Transfusion Stop: 10/20/21 16:30 Insulin Aspart (Insulin Aspart 100 Units/Ml 3 Ml Pen) 0 units SC ACHS [facility] Stop: 11/14/21 20:59 Last Admin: 10/20/21 10:11 Dose: 1 units Documented by: Levothyroxine Sodium (Levothyroxine Sodium 100 Mcg Tablet) 100 mcg PO DAILYBB [facility] Stop: 11/06/21 06:29 Last Admin: 10/20/21 06:24 Dose: 100 mcg Documented by: Miscellaneous (Carbohydrates For Hypoglycemia ) 15 - 30 gm PO UD PRN PRN Reason: Hypoglycemia Protocol Stop: 11/14/21 20:40 Nitroglycerin (Nitroglycerin Sl 0.4 Mg/Tab Tab) 0.4 mg SL UD PRN PRN Reason: Chest Pain Stop: 11/05/21 20:12 Ondansetron HCl (Ondansetron Inj 2 Mg/Ml 2 Ml Vial) 4 mg IV Q6H PRN PRN Reason: Nausea Stop: 11/05/21 20:12 Last Admin: 10/19/21 21:33 Dose: 4 mg Documented by: Fluticasone/Salmeterol (Fluticasone/Salmeterol (Advair) 500/50 Inh 14 Puff) 1 puffs INH BID [facility] Stop: 11/11/21 10:59 Last Admin: 10/20/21 09:54 Dose: Not Given Documented by: Sennosides (Senna 8.6 Mg Tab) 8.6 mg PO BID [facility] Stop: 11/17/21 20:59 Last Admin: 10/20/21 09:54 Dose: Not Given Documented by: Spironolactone (Spironolactone 25 Mg Tab) 25 mg PO QAM [facility] Stop: 11/19/21 08:59 Last Admin: 10/20/21 09:52 Dose: 25 mg Documented by: Sucralfate (Sucralfate 1 Gm/10 Ml Udc) 1 gm PO QID [facility] Stop: 11/08/21 12:59 Last Admin: 10/20/21 09:53 Dose: 1 gm Documented by: Tramadol HCl (Tramadol Hcl 50 Mg Tablet) 50 mg PO TID [facility] Stop: 11/10/21 15:04 Last Admin: 10/20/21 09:48 Dose: 50 mg Documented by: Ursodiol (Ursodiol 300 Mg Cap) 300 mg PO BID [facility] Stop: 11/05/21 20:59 Last Admin: 10/20/21 09:53 Dose: Not Given Documented by: PG Care Time/CCT Total # of Minutes Spent Total Time Spent with Patient: Total time spent is greater than 50% in coordination of care (as documented) at patient's floor/unit and/or counseling patient: Coding Level of Care Code 27417 Subseq Hosp Care Lvl 3 Diagnoses Myopathy G72.9 Neutropenia D70.9 CKD (chronic kidney disease) N18.9 Chronic kidney disease stage: unspecified stage Acute GI bleeding K92.2 COVID-19 U07.1 Abnormal LFTs R94.5 Elevated troponin R77.8 Chronic hyponatremia E87.1 Ischemic cardiomyopathy I25.5 CAD (coronary artery disease) I25.10 Associated angina: without angina Coronary Disease-Associated Artery/Lesion type: [place] artery [place] vs. transplanted heart: [place] heart Hypertension I10 Asthma J45.909 Rheumatoid arthritis M06.9 Hypothyroidism E03.9 Abnormal MRI, lumbar spine R93.7 Severe protein-calorie malnutrition E43 (1) CAD (coronary artery disease) Associated angina: without angina Coronary Disease-Associated Artery/Lesion type: [place] artery [place] vs. transplanted heart: [place] heart Qualified Code(s): I25.10 - Atherosclerotic heart disease of [place] coronary artery without angina pectoris (2) CKD (chronic kidney disease) Chronic kidney disease stage: unspecified stage Qualified Code(s): N18.9 - Chronic kidney disease, unspecified
[2021-10-20] MEDS: FILGRASTIM 300 MCG/ML VIAL SQ SCH (12:18)
[2021-10-20] MEDS: PANTOprazole 40 MG in SYRINGE 0 ML IV SCH ×2 (12:19→22:03)
[2021-10-20] MEDS: methylPREDNISolone 20 MG in SYRINGE 0 ML IV SCH ×2 (12:19→22:03)
[2021-10-20] MEDS: FUROSEMIDE INJ 20 MG/2 ML VIAL IV SCH (12:19)
[2021-10-20] MEDS: THIAMINE HCL 200 MG in SODIUM CHLORIDE 0.9% 50 ML IV SCH (17:41)
[2021-10-20] MEDS: GABAPENTIN 100 MG CAP PO SCH (22:04)
[2021-10-21] MEDS: LEVOTHYROXINE SODIUM 100 MCG TABLET PO SCH (05:59)
[2021-10-21 08:03] LABS: Calcium 7.6 mg/dl (8.5-10.1); Creatinine Clr Calc Pharmacy 22.8 ml/min; Est GFR (African American) 30.4 ml/min; Est GFR (Non-African American) 26.2 ml/min
[2021-10-21] MEDS: INSULIN ASPART 100 UNITS/ML 3 ML PEN SC SCH ×4 (09:25→20:39)
[2021-10-21] MEDS: guaiFENesin 600 MG TABCR PO SCH ×2 (09:27→20:38)
[2021-10-21] MEDS: SENNA 8.6 MG TAB PO SCH ×2 (09:27→20:37)
[2021-10-21] MEDS: BENZONATATE 100 MG CAPSULE PO SCH ×3 (09:28→20:38)
[2021-10-21] MEDS: ursodioL 300 MG CAP PO SCH ×2 (09:28→20:37)
[2021-10-21] MEDS: FLUTICASONE/SALMETEROL (ADVAIR) 500/50 INH 14 PUFF INH SCH ×2 (09:28→20:38)
[2021-10-21] MEDS: FERROUS SULFATE 325 MG TAB PO SCH ×2 (09:29→18:01)
[2021-10-21] MEDS: PANTOprazole 40 MG in SYRINGE 0 ML IV SCH ×2 (09:30→20:38)
[2021-10-21] MEDS: methylPREDNISolone 20 MG in SYRINGE 0 ML IV SCH ×2 (09:30→20:38)
[2021-10-21] MEDS: SUCRALFATE 1 GM/10 ML UDC PO SCH ×4 (09:31→20:37)
[2021-10-21] MEDS: FUROSEMIDE INJ 20 MG/2 ML VIAL IV SCH (09:32)
[2021-10-21] MEDS: HYDROXYCHLOROQUINE SULFATE 200 MG TAB PO SCH (09:33)
[2021-10-21] MEDS: carvediloL 12.5 MG TAB PO SCH ×2 (09:34→18:17)
[2021-10-21] MEDS: ASPIRIN 81 MG ECTAB PO SCH (09:34)
[2021-10-21] MEDS: SPIRONOLACTONE 25 MG TAB PO SCH (09:34)
[2021-10-21] MEDS: CLOPIDOGREL BISULFATE 75 MG TAB PO SCH (09:36)
[2021-10-21] MEDS: traMADol HCL 50 MG TABLET PO SCH ×3 (09:43→20:37)
[2021-10-21] MEDS: THIAMINE HCL 200 MG in SODIUM CHLORIDE 0.9% 50 ML IV SCH (09:44)
[2021-10-21] MEDS: HEPARIN SOD 5,000 UNIT/0.5 ML VIAL SQ SCH ×2 (09:45→20:39)
--- NOTE | 2021-10-21 13:48 | Hospitalist Progress Note ---
Date of Service October 21, 2021 Assessment & Plan (1) Myopathy: Plan: Myositis, very weak CPK improved HOLDING her statin and giving steroids. in August during her NSTEMI admission her CPK was <500 leg weakness is due to myopathy ortho-spine formally consulted; reviewed MRI l-spine; findings do not explain her b/l, proximal muscle weakness, which reinforces dx of statin myopathy as she was placed on lipitor for first time following her NSTEMI cont to HOLD statin - placed on allergy list takes chronic steroids (methylprednisolone) -- cont to Rx with methylprednisolone 20mg BID; no change on that dose still profoundly weak, unable to get out of bed, barely able to sit up in bed and it wears her out we discussed goals of care, she does not feel rehab would be a good idea she agrees to palliative care consult she wishes to change her code status to DNR/DNI (2) Neutropenia: Plan: WBC drifted down, PMN < 1.0, WBC is < 1k no fever d/w Dr. Mina with hematology, appreciate her input will hold Seroquel as that is new, checked Vitamin B12 and Folic acid, both are normal give Neupogen daily x 3 days, daily CBC neutropenic precautions ordered WBC up to > 2 and PMN > 1, thus neutropenia resolved (3) CKD (chronic kidney disease): Plan: STAGE 4 baseline CrCl <30 with JOAN resolving did have elevated K+ given veltassa Cr improved to 1.5 now Cr up to 1.8 after Lasix and spironolactone, stop the Spironolactone Lasix not very effective as she is third spacing, low albumin, poor nutrition K is 5.0 BMP in the morning (4) Acute GI bleeding: Plan: hgb stable transfused 2 u prbc during stay end of August, was scoped at that time with EGD showing gastritis, cont PPI twice daily now with more evidence of GI bleeding on 10/20, Hb 7.8, with her CAD will transfused 2 units tolerating transfusion she has no interest in scopes BP stable CBC in the morning (5) COVID-19: Plan: CT chest 10/11/21 b/l pneumonia c/w COVID pneumonia still not hypoxic - continue airborne precautions should likely come off airborne precautions on 10/16/2021 continue pulmonary toilet not a candidate for remdesivir due to lack of hypoxia and ARF current steroids are primarily for her RA and #1 will move out of negative pressure tomorrow (6) Abnormal LFTs: Plan: 2nd to statin; can't rule out COVID-19 playing a role as well holding lipitor repeat LFTs normalized (7) Elevated troponin: Plan: myocardial demand ischemia rather than recurrent NSTEMI (8) Chronic hyponatremia: Plan: stable (9) Ischemic cardiomyopathy: Plan: EF 25-30% on echo during admission for NSTEMI overall she is total body fluid overloaded (anasarca) from ARF, CHF and severe hypoalbuminemia cont BB not YANG or ARB candidate due to CKD giving Lasix but not a great response, likely because fluid is all in interstitium with 3rd spacing (10) CAD (coronary artery disease): Plan: as above (11) Hypertension: Plan: Controlled (12) Asthma: Plan: albuterol 2 puffs QID prn use advair due to formulary restrictions (13) Rheumatoid arthritis: Plan: no active flare at this time cont methylprednisolone cont plaquenil (14) Hypothyroidism: Plan: TSH earlier this month wnl cont synthroid (15) Abnormal MRI, lumbar spine: Plan: fluid in 2 vertebral levels on MRI likely DJD per both radiology and orthopecics she has chronic low back pain, but no change in her chronic symptoms she has no radicular symptoms she has no distal strength deficits (just proximal as in #1 above) (16) Severe protein-calorie malnutrition: Plan: albumin of <1.5 NO APPETITE COVID-19, depression (she denies such but states she is "angry"), recent cardiac issues, etc - all contributing to anorexia 3rd spacing due to low albumin overall makes prognosis worse (17) Goals of care, counseling/discussion: Plan: on 10/21, patient wishes to change to DNR/DNI she agrees with palliative care consult chronic conditions that are not improving: cardiomyopathy, CKD, hypoalbuminemia, malnutrition, chronic weakness, rheumatoid arthritis, GI bleeding/anemia now with acute myositis/myopathy, she has not been able to get out of bed this entire hospital stay Admission and Anticipated Discharge Date Admission Date: October 06, 2021 Subjective patient says she feels short of breath today, it started after she did some exercises in bed with therapy her oxygen saturations are stable on room air reviewed labs, Cr going up to 1.8, K is 5.0, will stop the spironolactone patient is barely eating, she is third spacing, skin is very thin and brittle, she is in pain due to her RA she has not been out of bed for a long time, lacks the strength asked the patient what her goals are for her care, she said "I don't know" she admits that she is not getting better, she has very little quality of life right now she is in pain, she does not eat much, she has edema, she is incredibly weak we discussed that trying for rehab again could be difficult, likely to have further set backs with bleeding, poor renal function, infections she agreed that rehab would likely not give her benefit I asked her about code status, she immediately shook her head and said she would not want intubated, chest compressions or shocked I changed her to DNR I suggested we get a palliative care consult, she agreed I spoke with Camilla with palliative care, she will see the patient tomorrow I called her son Frank and discussed my conversation with the patient, he understood and agreed with palliative care consult Review of Systems Review of Systems: All systems reviewed & are unremarkable except as noted in Subjective Constitutional: + fatigue and + weakness Respiratory: + dyspnea on exertion Cardiovascular: + edema (diffuse, 3rd spacing) Gastrointestinal: + diarrhea/loose stools and + blood in stools Musculoskeletal: + joint pain, + myalgia and + muscle weakness Psychiatric: + anxiety Physical Exam Physical Exam: General: well developed, well nourished, no acute distress, comfortable, edematous Neck: supple, trachea midline, normal thyroid Lungs: clear to auscultation bilaterally, normal respiratory effort, no accessory muscle use, no distress Heart: regular S1 and S2, no murmur, peripheral pulses normal, capillary refill normal, + edema Abdomen: soft, NT, ND, + BS, no hepatomegaly, normal to percussion Extremities: normal in appearance, no cyanosis, no petechiae, strength is diminished bilaterally Neuro: awake, cooperative, moves all extremities, no focal motor deficits, CN II-XII intact Skin: thin skin, decreased turgor Psych: Awake, alert oriented x 3, anxious affect Results & Data Results & Data ([facility]) Vital Signs (Past 12 Hours) Vital Signs Temp Pulse Resp BP BP Pulse Ox 10/21/21 08:15 36.4 C L 76 16 120/75 91 10/21/21 04:04 36.5 C 83 18 110/76 92 Laboratory Results Laboratory Results - last 24 hr 10/20/21 10/20/21 10/20/21 06:46 16:43 20:24 Sodium Potassium Chloride Carbon Dioxide Anion Gap BUN Creatinine Est Cr Clr Drug Dosing Est GFR ( Amer) Est GFR (Non-Af Amer) BUN/Creatinine Ratio Glucose POC Glucose 171 H 199 H Calcium Crossmatch See Detail 10/21/21 10/21/21 10/21/21 06:29 07:31 11:47 Sodium 133 L Potassium 5.0 Chloride 98 Carbon Dioxide 24 Anion Gap 11.0 BUN 119 H Creatinine 1.86 H D Est Cr Clr Drug Dosing 22.8 Est GFR ( Amer) 30.4 Est GFR (Non-Af Amer) 26.2 BUN/Creatinine Ratio 64.0 H Glucose 178 H POC Glucose 178 H 190 H Calcium 7.6 L Crossmatch Medications Administered Current Inpatient Medications Acetaminophen (Acetaminophen 325 Mg Tab) 650 mg PO Q4H PRN PRN Reason: Pain or Fever Stop: 11/05/21 20:12 Last Admin: 10/19/21 18:22 Dose: 650 mg Documented by: Albuterol (Albuterol Hfa 8 Gm Inhaler) 2 puffs INH QIDR PRN PRN Reason: Shortness Of Breath Or Wheezing Stop: 11/09/21 16:59 Aspirin (Aspirin 81 Mg Ectab) 81 mg PO QAM [facility] Stop: 11/06/21 11:14 Last Admin: 10/21/21 09:34 Dose: 81 mg Documented by: Benzonatate (Benzonatate 100 Mg Capsule) 100 mg PO TID [facility] Stop: 11/09/21 13:59 Last Admin: 10/21/21 09:28 Dose: 100 mg Documented by: Bisacodyl (Bisacodyl 10 Mg Supp) 10 mg WA DAILY PRN PRN Reason: Constipation Stop: 11/05/21 20:12 Carvedilol (Carvedilol 12.5 Mg Tab) 12.5 mg PO BIDM [facility] Stop: 11/06/21 07:59 Last Admin: 10/21/21 09:34 Dose: 12.5 mg Documented by: Clopidogrel Bisulfate (Clopidogrel Bisulfate 75 Mg Tab) 75 mg PO QAM [facility] Stop: 11/06/21 08:59 Last Admin: 10/21/21 09:36 Dose: 75 mg Documented by: Dextrose (Dextrose 50% 50 Ml Syringe) 25 - 50 ml IV UD PRN; Protocol PRN Reason: Hypoglycemia Protocol Stop: 11/14/21 20:40 Diclofenac Sodium (Diclofenac Sod 1% Gel 100 Gm Tube) 2 gm EXT QID PRN PRN Reason: Pain Stop: 11/05/21 20:12 Ferrous Sulfate (Ferrous Sulfate 325 Mg Tab) 325 mg PO BIDM [facility] Stop: 11/06/21 07:59 Last Admin: 10/21/21 09:29 Dose: 325 mg Documented by: Gabapentin (Gabapentin 100 Mg Cap) 200 mg PO HS [facility] Stop: 11/05/21 20:59 Last Admin: 10/20/21 22:04 Dose: 200 mg Documented by: Glucagon (Glucagon For Inj 1 Mg Vial) 1 mg SQ UD PRN; Protocol PRN Reason: Hypoglycemia Protocol Stop: 11/14/21 20:40 Glucose (Glucose 10 Tabs/Tube) 4 - 8 tabs PO UD PRN; Protocol PRN Reason: Hypoglycemia Protocol Stop: 11/14/21 20:40 Glucose (Glucose 40% Gel 15 Gm Tube) 15 - 30 gm PO UD PRN; Protocol PRN Reason: Hypoglycemia Protocol Stop: 11/14/21 20:40 Guaifenesin (Guaifenesin 600 Mg Tabcr) 1,200 mg PO BID [facility] Stop: 11/11/21 20:59 Last Admin: 10/21/21 09:27 Dose: Not Given Documented by: Guaifenesin/Codeine Phosphate (Guaifenesin/Codeine 100mg/10mg 5ml Udc) 5 ml PO Q6H PRN PRN Reason: Cough Stop: 11/09/21 09:39 Last Admin: 10/17/21 20:38 Dose: 5 ml Documented by: Heparin Sodium (Porcine) (Heparin Sod 5,000 Unit/0.5 Ml Vial) 5,000 units SQ Q12 [facility] Stop: 11/09/21 20:59 Last Admin: 10/21/21 09:45 Dose: 5,000 units Documented by: Hydroxychloroquine Sulfate (Hydroxychloroquine Sulfate 200 Mg Tab) 200 mg PO DAILY [facility] Stop: 11/19/21 08:59 Last Admin: 10/21/21 09:33 Dose: 200 mg Documented by: Pantoprazole Sodium 40 mg/ (Syringe) 10 mls @ 5 mls/min IV BID [facility] Stop: 11/05/21 20:59 Last Admin: 10/21/21 09:30 Dose: 5 mls/min Documented by: Thiamine HCl 200 mg/ Sodium (Chloride) 52 mls @ 208 mls/hr IV QAM [facility] Stop: 11/06/21 11:29 Last Admin: 10/21/21 09:44 Dose: 208 mls/hr Documented by: Methylprednisolone 20 mg/ (Syringe) 0.32 mls @ 1.5 mls/min IV BID [facility] Stop: 11/08/21 09:59 Last Admin: 10/21/21 09:30 Dose: 1.5 mls/min Documented by: Insulin Aspart (Insulin Aspart 100 Units/Ml 3 Ml Pen) 0 units SC ACHS [facility] Stop: 11/14/21 20:59 Last Admin: 10/21/21 12:20 Dose: 3 units Documented by: Levothyroxine Sodium (Levothyroxine Sodium 100 Mcg Tablet) 100 mcg PO DAILYBB [facility] Stop: 11/06/21 06:29 Last Admin: 10/21/21 05:59 Dose: 100 mcg Documented by: Miscellaneous (Carbohydrates For Hypoglycemia ) 15 - 30 gm PO UD PRN PRN Reason: Hypoglycemia Protocol Stop: 11/14/21 20:40 Nitroglycerin (Nitroglycerin Sl 0.4 Mg/Tab Tab) 0.4 mg SL UD PRN PRN Reason: Chest Pain Stop: 11/05/21 20:12 Ondansetron HCl (Ondansetron Inj 2 Mg/Ml 2 Ml Vial) 4 mg IV Q6H PRN PRN Reason: Nausea Stop: 11/05/21 20:12 Last Admin: 10/19/21 21:33 Dose: 4 mg Documented by: Fluticasone/Salmeterol (Fluticasone/Salmeterol (Advair) 500/50 Inh 14 Puff) 1 puffs INH BID [facility] Stop: 11/11/21 10:59 Last Admin: 10/21/21 09:28 Dose: 1 puffs Documented by: Sennosides (Senna 8.6 Mg Tab) 8.6 mg PO BID [facility] Stop: 11/17/21 20:59 Last Admin: 10/21/21 09:27 Dose: Not Given Documented by: Spironolactone (Spironolactone 25 Mg Tab) 25 mg PO QAM [facility] Stop: 11/19/21 08:59 Last Admin: 10/21/21 09:34 Dose: 25 mg Documented by: Sucralfate (Sucralfate 1 Gm/10 Ml Udc) 1 gm PO QID [facility] Stop: 11/08/21 12:59 Last Admin: 10/21/21 12:20 Dose: 1 gm Documented by: Tramadol HCl (Tramadol Hcl 50 Mg Tablet) 50 mg PO TID [facility] Stop: 11/10/21 15:04 Last Admin: 10/21/21 09:43 Dose: 50 mg Documented by: Ursodiol (Ursodiol 300 Mg Cap) 300 mg PO BID [facility] Stop: 11/05/21 20:59 Last Admin: 10/21/21 09:28 Dose: Not Given Documented by: PG Care Time/CCT Total # of Minutes Spent Total Time Spent: 40 Total Time Spent with Patient: Total time spent is greater than 50% in coordination of care (as documented) at patient's floor/unit and/or counseling patient: Coding Level of Care Code 61362 Subseq Hosp Care Lvl 3 (25 - SIGNIFICANT, SEPARATELY IDENTIFIABLE ) Diagnoses Myopathy G72.9 Neutropenia D70.9 CKD (chronic kidney disease) N18.9 Chronic kidney disease stage: unspecified stage Acute GI bleeding K92.2 COVID-19 U07.1 Abnormal LFTs R94.5 Elevated troponin R77.8 Chronic hyponatremia E87.1 Ischemic cardiomyopathy I25.5 CAD (coronary artery disease) I25.10 Associated angina: without angina Coronary Disease-Associated Artery/Lesion type: [place] artery [place] vs. transplanted heart: [place] heart Hypertension I10 Asthma J45.909 Rheumatoid arthritis M06.9 Hypothyroidism E03.9 Abnormal MRI, lumbar spine R93.7 Severe protein-calorie malnutrition E43 Goals of care, counseling/discussion Z71.89 (1) CAD (coronary artery disease) Associated angina: without angina Coronary Disease-Associated Artery/Lesion type: [place] artery [place] vs. transplanted heart: [place] heart Qualified Code(s): I25.10 - Atherosclerotic heart disease of [place] coronary artery without angina pectoris (2) CKD (chronic kidney disease) Chronic kidney disease stage: unspecified stage Qualified Code(s): N18.9 - Chronic kidney disease, unspecified
[2021-10-21] MEDS ORDERED: LORazepam 0.5 MG TAB PO PRN (17:05)
[2021-10-21] MEDS: GABAPENTIN 100 MG CAP PO SCH (20:38)
[2021-10-22] MEDS: LEVOTHYROXINE SODIUM 100 MCG TABLET PO SCH (06:09)
[2021-10-22 07:36] LABS: BUN Creatinine Ratio 64.6 (10-20); Calcium 7.4 mg/dl (8.5-10.1); Creatinine Clr Calc Pharmacy 18.6 ml/min; Est GFR (African American) 24.6 ml/min; Est GFR (Non-African American) 21.3 ml/min; Potassium 5.8 mmol/L (3.5-5.1)
[2021-10-22] MEDS: ACETAMINOPHEN 325 MG TAB PO PRN (07:36)
[2021-10-22] MEDS: carvediloL 12.5 MG TAB PO SCH ×2 (07:41→18:00)
[2021-10-22] MEDS: INSULIN ASPART 100 UNITS/ML 3 ML PEN SC SCH ×3 (09:44→17:59)
[2021-10-22] MEDS: PANTOprazole 40 MG in SYRINGE 0 ML IV SCH ×2 (09:48→20:51)
[2021-10-22] MEDS: methylPREDNISolone 20 MG in SYRINGE 0 ML IV SCH ×2 (09:48→20:51)
[2021-10-22 09:58] LABS: Hematocrit (blood only) 26.9 % (37-47); Hemoglobin 8.7 g/dL (12.0-16.0); Mean Corpuscular Hemoglobin 29.8 pg (25-34); Mean Corpuscular Hgb Conc 32.3 g/dL (32-36); Mean Corpuscular Volume 92.1 fL (80-100); Mean Platelet Volume 12.4 fL (7.4-10.4); Nucleated RBC # (auto) 0.41 K/uL (0-0); Nucleated RBC % (auto) 2.6 %; Platelet Count 111 K/uL (130-400); Platelet Estimate Decreased (Normal); RDW Coefficient of Variation 16.5 % (11.5-14.5); RDW Standard Deviation 54.4 fL (36.4-46.3); Red Blood Count 2.92 M/uL (4.2-5.4); White Blood Count 15.68 K/uL (4.8-10.8)
[2021-10-22] MEDS: FLUTICASONE/SALMETEROL (ADVAIR) 500/50 INH 14 PUFF INH SCH ×2 (10:03→20:50)
[2021-10-22] MEDS: CLOPIDOGREL BISULFATE 75 MG TAB PO SCH (10:03)
[2021-10-22] MEDS: ASPIRIN 81 MG ECTAB PO SCH (10:03)
[2021-10-22] MEDS: BENZONATATE 100 MG CAPSULE PO SCH ×3 (10:03→20:50)
[2021-10-22] MEDS: FERROUS SULFATE 325 MG TAB PO SCH ×2 (10:03→18:00)
[2021-10-22] MEDS: guaiFENesin 600 MG TABCR PO SCH ×2 (10:03→20:50)
[2021-10-22] MEDS: SENNA 8.6 MG TAB PO SCH ×2 (10:04→20:50)
[2021-10-22] MEDS: HYDROXYCHLOROQUINE SULFATE 200 MG TAB PO SCH (10:04)
[2021-10-22] MEDS: SUCRALFATE 1 GM/10 ML UDC PO SCH ×4 (10:04→20:50)
[2021-10-22] MEDS: HEPARIN SOD 5,000 UNIT/0.5 ML VIAL SQ SCH ×2 (10:04→20:50)
[2021-10-22] MEDS: traMADol HCL 50 MG TABLET PO SCH ×3 (10:05→20:51)
[2021-10-22] MEDS: ursodioL 300 MG CAP PO SCH ×2 (10:06→20:51)
[2021-10-22] MEDS: THIAMINE HCL 200 MG in SODIUM CHLORIDE 0.9% 50 ML IV SCH (10:42)
[2021-10-22] MEDS ORDERED: LORazepam 0.5 MG/1 ML VIAL IV PRN (14:37)
[2021-10-22] MEDS ORDERED: GLYCOPYRROLATE 0.2 MG/ML VIAL IV PRN (14:37)
[2021-10-22] MEDS ORDERED: MoRPHine SULFATE 2 MG/ML CARP IV PRN (14:37)
[2021-10-22] MEDS ORDERED: ATROPINE SULFATE 1% OP SOLN 5 ML BTL SL PRN (14:37)
--- NOTE | 2021-10-22 14:48 | Hospitalist Progress Note ---
Date of Service October 22, 2021 Assessment & Plan (1) Goals of care, counseling/discussion: Plan: on 10/21, patient wishes to change to DNR/DNI she agrees with palliative care consult chronic conditions that are not improving: cardiomyopathy, CKD, hypoalbuminemia, malnutrition, chronic weakness, rheumatoid arthritis, GI bleeding/anemia now with acute myositis/myopathy, she has not been able to get out of bed this entire hospital stay on 10/22 she was refusing oral medications, refusing to eat or drink, wanted her life vest removed I discussed changing her to comfort measures only, she agreed with that plan called her son Frank, they can visit when out of COVID unit moved to 305 in the evening (2) Myopathy: Plan: Myositis, very weak CPK improved HOLDING her statin and giving steroids. in August during her NSTEMI admission her CPK was <500 leg weakness is due to myopathy ortho-spine formally consulted; reviewed MRI l-spine; findings do not explain her b/l, proximal muscle weakness, which reinforces dx of statin myopathy as she was placed on lipitor for first time following her NSTEMI cont to HOLD statin - placed on allergy list takes chronic steroids (methylprednisolone) -- cont to Rx with methylprednisolone 20mg BID; no change on that dose still profoundly weak, unable to get out of bed, barely able to sit up in bed and it wears her out we discussed goals of care, she does not feel rehab would be a good idea she agrees to palliative care consult she wishes to change her code status to DNR/DNI (3) Neutropenia: Plan: WBC drifted down, PMN < 1.0, WBC is < 1k no fever d/w Dr. Mina with hematology, appreciate her input will hold Seroquel as that is new, checked Vitamin B12 and Folic acid, both are normal give Neupogen daily x 3 days, daily CBC neutropenic precautions ordered WBC up > 10k after Neupogen (4) CKD (chronic kidney disease): Plan: STAGE 4 baseline CrCl <30 with JOAN resolving did have elevated K+ given veltassa Cr improved to 1.5 now Cr up to 2.2, BUN is markedly elevated at 143 Lasix not very effective as she is third spacing, low albumin, poor nutrition K is 5.8 no further labs, patient is dying, wants comfort measures (5) Acute GI bleeding: Plan: hgb stable transfused 2 u prbc during stay end of August, was scoped at that time with EGD showing gastritis, cont PPI twice daily now with more evidence of GI bleeding on 10/20, Hb 7.8, with her CAD transfused 2 units tolerated transfusion she has no interest in scopes BUN going up to 143 Hb is 8.7 comfort care (6) COVID-19: Plan: CT chest 10/11/21 b/l pneumonia c/w COVID pneumonia still not hypoxic - continue airborne precautions should likely come off airborne precautions on 10/16/2021 continue pulmonary toilet not a candidate for remdesivir due to lack of hypoxia and ARF current steroids are primarily for her RA and #1 will move out of negative pressure, went to 305 (7) Abnormal LFTs: Plan: 2nd to statin; can't rule out COVID-19 playing a role as well holding lipitor repeat LFTs normalized (8) Elevated troponin: Plan: myocardial demand ischemia rather than recurrent NSTEMI (9) Chronic hyponatremia: Plan: stable (10) Ischemic cardiomyopathy: Plan: EF 25-30% on echo during admission for NSTEMI overall she is total body fluid overloaded (anasarca) from ARF, CHF and severe hypoalbuminemia cont BB not YANG or ARB candidate due to CKD giving Lasix but not a great response, likely because fluid is all in interstitium with 3rd spacing (11) CAD (coronary artery disease): Plan: as above (12) Hypertension: Plan: Controlled (13) Asthma: Plan: albuterol 2 puffs QID prn use advair due to formulary restrictions (14) Rheumatoid arthritis: Plan: no active flare at this time cont methylprednisolone cont plaquenil (15) Hypothyroidism: Plan: TSH earlier this month wnl cont synthroid (16) Abnormal MRI, lumbar spine: Plan: fluid in 2 vertebral levels on MRI likely DJD per both radiology and orthopecics she has chronic low back pain, but no change in her chronic symptoms she has no radicular symptoms she has no distal strength deficits (just proximal as in #1 above) (17) Severe protein-calorie malnutrition: Plan: albumin of <1.5 NO APPETITE COVID-19, depression (she denies such but states she is "angry"), recent cardiac issues, etc - all contributing to anorexia 3rd spacing due to low albumin overall makes prognosis worse Plan: [employer] Admission and Anticipated Discharge Date Admission Date: October 06, 2021 Subjective patient doing a lot worse today, not talking, refusing to eat or take medications she asked to have her life vest removed she would not talk much, she denied any pain, denied dyspnea, denied nausea reviewed labs, Cr up to 2.2, K is up to 5.8 will cancel palliative care consult as she now appears to be dying, giving up will change to comfort measures only, patient agreed with this plan trying to get her out of the COVID unit to allow family to visit I called her son Frank to give him an update, let him know that they can visit once out of isolation Review of Systems Review of Systems: All systems reviewed & are unremarkable except as noted in Subjective (denies pain, dyspnea, would not answer other questions) Constitutional: + fatigue and + weakness Cardiovascular: + edema Physical Exam Physical Exam: General: well developed, well nourished, no acute distress, comfortable, edematous Neck: supple, trachea midline, normal thyroid Lungs: clear to auscultation bilaterally, normal respiratory effort, no accessory muscle use, no distress Heart: regular S1 and S2, no murmur, peripheral pulses normal, capillary refill normal, + edema, anasarca Abdomen: soft, NT, ND, + BS, no hepatomegaly, normal to percussion Extremities: normal in appearance, no cyanosis, no petechiae, strength is diminished bilaterally Neuro: awake, cooperative, moves all extremities, no focal motor deficits, CN II-XII intact Skin: thin skin, decreased turgor Psych: Awake, alert oriented x 3, very depressed, won't answer questions or open her eyes Results & Data Results & Data ([facility]) Vital Signs (Past 12 Hours) Vital Signs Temp Pulse Resp BP BP Pulse Ox 10/22/21 11:49 36.9 C 91 H 16 96/65 L 94 10/22/21 07:49 36.9 C 99 H 18 101/77 94 10/22/21 04:00 36.5 C 89 20 90/69 L 94 Laboratory Results Laboratory Results - last 24 hr 10/21/21 10/21/21 10/22/21 16:44 20:11 06:27 WBC Cancelled RBC Cancelled Hgb Cancelled Hct Cancelled MCV Cancelled MCH Cancelled MCHC Cancelled RDW Std Deviation Cancelled RDW Coeff of Sue Cancelled Plt Count Cancelled MPV Cancelled Absolute Nucleated RBC Cancelled Nucleated RBC % (auto) Cancelled Platelet Estimate Cancelled Sodium Potassium Chloride Carbon Dioxide Anion Gap BUN Creatinine Est Cr Clr Drug Dosing Est GFR ( Amer) Est GFR (Non-Af Amer) BUN/Creatinine Ratio Glucose POC Glucose 173 H 181 H Calcium 10/22/21 10/22/21 10/22/21 06:27 07:41 09:02 WBC 15.68 H RBC 2.92 L Hgb 8.7 L Hct 26.9 L MCV 92.1 MCH 29.8 MCHC 32.3 RDW Std Deviation 54.4 H RDW Coeff of Sue 16.5 H Plt Count 111 L MPV 12.4 H Absolute Nucleated RBC 0.41 H Nucleated RBC % (auto) 2.6 Platelet Estimate Decreased L Sodium 133 L Potassium 5.8 H D Chloride 100 Carbon Dioxide 19 L Anion Gap 14.0 H BUN 143 H Creatinine 2.21 H D Est Cr Clr Drug Dosing 18.6 Est GFR ( Amer) 24.6 Est GFR (Non-Af Amer) 21.3 BUN/Creatinine Ratio 64.6 H Glucose 165 H POC Glucose 177 H Calcium 7.4 L 10/22/21 11:43 WBC RBC Hgb Hct MCV MCH MCHC RDW Std Deviation RDW Coeff of Sue Plt Count MPV Absolute Nucleated RBC Nucleated RBC % (auto) Platelet Estimate Sodium Potassium Chloride Carbon Dioxide Anion Gap BUN Creatinine Est Cr Clr Drug Dosing Est GFR ( Amer) Est GFR (Non-Af Amer) BUN/Creatinine Ratio Glucose POC Glucose 201 H Calcium Medications Administered Current Inpatient Medications Acetaminophen (Acetaminophen 325 Mg Tab) 650 mg PO Q4H PRN PRN Reason: Pain or Fever Stop: 11/05/21 20:12 Last Admin: 10/19/21 18:22 Dose: 650 mg Documented by: Albuterol (Albuterol Hfa 8 Gm Inhaler) 2 puffs INH QIDR PRN PRN Reason: Shortness Of Breath Or Wheezing Stop: 11/09/21 16:59 Aspirin (Aspirin 81 Mg Ectab) 81 mg PO QAM [facility] Stop: 11/06/21 11:14 Last Admin: 10/22/21 10:03 Dose: Not Given Documented by: Atropine Sulfate (Atropine Sulfate 1% Op Soln 5 Ml Btl) 4 drops SL Q1H PRN PRN Reason: Secretions or pulm congestion Stop: 11/21/21 14:36 Benzonatate (Benzonatate 100 Mg Capsule) 100 mg PO TID [facility] Stop: 11/09/21 13:59 Last Admin: 10/22/21 10:03 Dose: Not Given Documented by: Bisacodyl (Bisacodyl 10 Mg Supp) 10 mg [place] DAILY PRN PRN Reason: Constipation Stop: 11/05/21 20:12 Carvedilol (Carvedilol 12.5 Mg Tab) 12.5 mg PO BIDM [facility] Stop: 11/06/21 07:59 Last Admin: 10/22/21 07:41 Dose: Not Given Documented by: Clopidogrel Bisulfate (Clopidogrel Bisulfate 75 Mg Tab) 75 mg PO QAM [facility] Stop: 11/06/21 08:59 Last Admin: 10/22/21 10:03 Dose: Not Given Documented by: Dextrose (Dextrose 50% 50 Ml Syringe) 25 - 50 ml IV UD PRN; Protocol PRN Reason: Hypoglycemia Protocol Stop: 11/14/21 20:40 Diclofenac Sodium (Diclofenac Sod 1% Gel 100 Gm Tube) 2 gm EXT QID PRN PRN Reason: Pain Stop: 11/05/21 20:12 Ferrous Sulfate (Ferrous Sulfate 325 Mg Tab) 325 mg PO BIDM [facility] Stop: 11/06/21 07:59 Last Admin: 10/22/21 10:03 Dose: Not Given Documented by: Gabapentin (Gabapentin 100 Mg Cap) 200 mg PO HS [facility] Stop: 11/05/21 20:59 Last Admin: 10/21/21 20:38 Dose: 200 mg Documented by: Glucagon (Glucagon For Inj 1 Mg Vial) 1 mg SQ UD PRN; Protocol PRN Reason: Hypoglycemia Protocol Stop: 11/14/21 20:40 Glucose (Glucose 10 Tabs/Tube) 4 - 8 tabs PO UD PRN; Protocol PRN Reason: Hypoglycemia Protocol Stop: 11/14/21 20:40 Glucose (Glucose 40% Gel 15 Gm Tube) 15 - 30 gm PO UD PRN; Protocol PRN Reason: Hypoglycemia Protocol Stop: 11/14/21 20:40 Glycopyrrolate (Glycopyrrolate 0.2 Mg/Ml Vial) 0.2 mg IV Q4H PRN PRN Reason: Secretions or Pulm Congestion Stop: 11/21/21 14:36 Guaifenesin (Guaifenesin 600 Mg Tabcr) 1,200 mg PO BID [facility] Stop: 11/11/21 20:59 Last Admin: 10/22/21 10:03 Dose: Not Given Documented by: Guaifenesin/Codeine Phosphate (Guaifenesin/Codeine 100mg/10mg 5ml Udc) 5 ml PO Q6H PRN PRN Reason: Cough Stop: 11/09/21 09:39 Last Admin: 10/17/21 20:38 Dose: 5 ml Documented by: Heparin Sodium (Porcine) (Heparin Sod 5,000 Unit/0.5 Ml Vial) 5,000 units SQ Q12 [facility] Stop: 11/09/21 20:59 Last Admin: 10/22/21 10:04 Dose: 5,000 units Documented by: Hydroxychloroquine Sulfate (Hydroxychloroquine Sulfate 200 Mg Tab) 200 mg PO DAILY [facility] Stop: 11/19/21 08:59 Last Admin: 10/22/21 10:04 Dose: Not Given Documented by: Pantoprazole Sodium 40 mg/ (Syringe) 10 mls @ 5 mls/min IV BID [facility] Stop: 11/05/21 20:59 Last Admin: 10/22/21 09:48 Dose: 5 mls/min Documented by: Thiamine HCl 200 mg/ Sodium (Chloride) 52 mls @ 208 mls/hr IV QAM [facility] Stop: 11/06/21 11:29 Last Infusion: 10/22/21 11:18 Dose: Infused Documented by: Methylprednisolone 20 mg/ (Syringe) 0.32 mls @ 1.5 mls/min IV BID [facility] Stop: 11/08/21 09:59 Last Admin: 10/22/21 09:48 Dose: 1.5 mls/min Documented by: Lorazepam (Ativan) 0.5 mg in 1 mls @ 1 mls/min IV Q4H PRN PRN Reason: Anxiety/Agitation Stop: 11/21/21 14:36 Insulin Aspart (Insulin Aspart 100 Units/Ml 3 Ml Pen) 0 units SC ACHS [facility] Stop: 11/14/21 20:59 Last Admin: 10/22/21 12:52 Dose: 2 units Documented by: Levothyroxine Sodium (Levothyroxine Sodium 100 Mcg Tablet) 100 mcg PO DAILYBB [facility] Stop: 11/06/21 06:29 Last Admin: 10/22/21 06:09 Dose: Not Given Documented by: Lorazepam (Lorazepam 0.5 Mg Tab) 0.5 mg PO Q8 PRN PRN Reason: Anxiety Stop: 11/20/21 17:04 Miscellaneous (Carbohydrates For Hypoglycemia ) 15 - 30 gm PO UD PRN PRN Reason: Hypoglycemia Protocol Stop: 11/14/21 20:40 Morphine Sulfate (Morphine Sulfate 2 Mg/Ml Carp) 2 mg IV Q4H PRN PRN Reason: Pain or Respiratory Distress Stop: 11/05/21 14:36 Nitroglycerin (Nitroglycerin Sl 0.4 Mg/Tab Tab) 0.4 mg SL UD PRN PRN Reason: Chest Pain Stop: 11/05/21 20:12 Ondansetron HCl (Ondansetron Inj 2 Mg/Ml 2 Ml Vial) 4 mg IV Q6H PRN PRN Reason: Nausea Stop: 11/05/21 20:12 Last Admin: 10/19/21 21:33 Dose: 4 mg Documented by: Fluticasone/Salmeterol (Fluticasone/Salmeterol (Advair) 500/50 Inh 14 Puff) 1 puffs INH BID [facility] Stop: 11/11/21 10:59 Last Admin: 10/22/21 10:03 Dose: Not Given Documented by: Sennosides (Senna 8.6 Mg Tab) 8.6 mg PO BID [facility] Stop: 11/17/21 20:59 Last Admin: 10/22/21 10:04 Dose: Not Given Documented by: Sucralfate (Sucralfate 1 Gm/10 Ml Udc) 1 gm PO QID [facility] Stop: 11/08/21 12:59 Last Admin: 10/22/21 12:55 Dose: Not Given Documented by: Tramadol HCl (Tramadol Hcl 50 Mg Tablet) 50 mg PO TID [facility] Stop: 11/10/21 15:04 Last Admin: 10/22/21 10:05 Dose: Not Given Documented by: Ursodiol (Ursodiol 300 Mg Cap) 300 mg PO BID [facility] Stop: 11/05/21 20:59 Last Admin: 10/22/21 10:06 Dose: Not Given Documented by: PG Care Time/CCT Total # of Minutes Spent Total Time Spent with Patient: Total time spent is greater than 50% in coordination of care (as documented) at patient's floor/unit and/or counseling patient: Coding Level of Care Code 72983 Subseq Hosp Care Lvl 3 Diagnoses Myopathy G72.9 Neutropenia D70.9 CKD (chronic kidney disease) N18.9 Chronic kidney disease stage: unspecified stage Acute GI bleeding K92.2 COVID-19 U07.1 Abnormal LFTs R94.5 Elevated troponin R77.8 Chronic hyponatremia E87.1 Ischemic cardiomyopathy I25.5 CAD (coronary artery disease) I25.10 Associated angina: without angina Coronary Disease-Associated Artery/Lesion type: [place] artery [place] vs. transplanted heart: [place]q heart Hypertension I10 Asthma J45.909 Rheumatoid arthritis M06.9 Hypothyroidism E03.9 Abnormal MRI, lumbar spine R93.7 Severe protein-calorie malnutrition E43 Goals of care, counseling/discussion Z71.89 (1) CAD (coronary artery disease) Associated angina: without angina Coronary Disease-Associated Artery/Lesion type: [place] artery [place] vs. transplanted heart: [place]q heart Qualified Code(s): I25.10 - Atherosclerotic heart disease of [place] coronary artery without angina pectoris (2) CKD (chronic kidney disease) Chronic kidney disease stage: unspecified stage Qualified Code(s): N18.9 - Chronic kidney disease, unspecified
[2021-10-22] MEDS: GABAPENTIN 100 MG CAP PO SCH (20:50)
[2021-10-23] MEDS ORDERED: MoRPHine SULFATE 2 MG/ML CARP ONE (00:13)
[2021-10-23] MEDS: MoRPHine SULFATE 2 MG/ML CARP IV PRN ×5 (05:52→20:04)
--- NOTE | 2021-10-23 09:01 | Hospitalist Progress Note ---
Date of Service October 23, 2021 Assessment & Plan (1) Goals of care, counseling/discussion: Plan: on 10/21, patient wishes to change to DNR/DNI she agrees with palliative care/hospice care chronic conditions that are not improving: cardiomyopathy, CKD, hypoalbuminemia, malnutrition, chronic weakness, rheumatoid arthritis, GI bleeding/anemia now with acute myositis/myopathy, she has not been able to get out of bed this entire hospital stay on 10/22 she was refusing oral medications, refusing to eat or drink, wanted her life vest removed Dr George discussed changing her to comfort measures only, she agreed with that plan called her son Frank, they can visit when out of COVID unit moved to 305 in the evening, airborne precautions 10/16/21 will need private room until 10/26/21 (2) Myopathy: Plan: Myositis, very weak CPK improved HOLDING her statin and giving steroids. in August during her NSTEMI admission her CPK was <500 leg weakness is due to myopathy ortho-spine formally consulted; reviewed MRI l-spine; findings do not explain her b/l, proximal muscle weakness, which reinforces dx of statin myopathy as she was placed on lipitor for first time following her NSTEMI cont to HOLD statin - placed on allergy list takes chronic steroids (methylprednisolone) -- cont to Rx with methylprednisolone 20mg BID; no change on that dose still profoundly weak, unable to get out of bed, barely able to sit up in bed and it wears her out we discussed goals of care, she does not feel rehab would be a good idea she agrees to palliative care/ hospice she wishes to change her code status to DNR/DNI (3) Neutropenia: Plan: d/w Dr. Mina with hematology, appreciate her input will hold Seroquel as that is new, checked Vitamin B12 and Folic acid, both are normal given Neupogen daily x 3 days, wbc is normalized (4) CKD (chronic kidney disease): Plan: STAGE 4 baseline CrCl <30 with JOAN resolving did have elevated K+ given veltassa Cr improved to 1.5 now Cr up to 2.2, BUN is markedly elevated at 143 Lasix not very effective as she is third spacing, low albumin, poor nutrition K is 5.8 no further labs, patient is dying, wants comfort measures (5) Acute GI bleeding: Plan: hgb stable transfused 2 u prbc during stay end of August, was scoped at that time with EGD showing gastritis, cont PPI twice daily now with more evidence of GI bleeding on 10/20, Hb 7.8, with her CAD transfused 2 units tolerated transfusion she has no interest in scopes BUN going up to 143 Hb is 8.7 comfort care (6) COVID-19: Plan: CT chest 10/11/21 b/l pneumonia c/w COVID pneumonia still not hypoxic - continue airborne precautions should likely come off airborne precautions on 10/16/2021 continue pulmonary toilet not a candidate for remdesivir due to lack of hypoxia and ARF current steroids are primarily for her RA and #1 will move out of negative pressure, went to 305 (7) Abnormal LFTs: Plan: 2nd to statin; can't rule out COVID-19 playing a role as well holding lipitor repeat LFTs normalized (8) Elevated troponin: Plan: myocardial demand ischemia rather than recurrent NSTEMI (9) Chronic hyponatremia: Plan: stable (10) Ischemic cardiomyopathy: Plan: EF 25-30% on echo during admission for NSTEMI overall she is total body fluid overloaded (anasarca) from ARF, CHF and severe hypoalbuminemia cont BB not YANG or ARB candidate due to CKD giving Lasix but not a great response, likely because fluid is all in interstitium with 3rd spacing (11) CAD (coronary artery disease): Plan: as above (12) Hypertension: Plan: Controlled (13) Asthma: Plan: albuterol 2 puffs QID prn use advair due to formulary restrictions (14) Rheumatoid arthritis: Plan: no active flare at this time cont methylprednisolone cont plaquenil (15) Hypothyroidism: Plan: TSH earlier this month wnl cont synthroid (16) Abnormal MRI, lumbar spine: Plan: fluid in 2 vertebral levels on MRI likely DJD per both radiology and orthopecics she has chronic low back pain, but no change in her chronic symptoms she has no radicular symptoms she has no distal strength deficits (just proximal as in #1 above) (17) Severe protein-calorie malnutrition: Plan: albumin of <1.5 NO APPETITE COVID-19, depression (she denies such but states she is "angry"), recent cardiac issues, etc - all contributing to anorexia 3rd spacing due to low albumin overall makes prognosis worse Plan: [facility] Admission and Anticipated Discharge Date Admission Date: October 06, 2021 Subjective Walked into see the patient she says she was comfortable, she confirms to me that she wishes to be on comfort care measures. I asked if she would [place] family she said no I specifically asked if she would recall her son she said no she easily drifted off to sleep Review of Systems Review of Systems: Unobtainable due to cognitive status Physical Exam Physical Exam: The patient appeared well Vital signs as documented. Lungs are clear to auscultation dimished at the bases appears unlabored Cardiac exam, Rhythm is regular.. No murmurs, rubs or gallops. Abdominal exam reveals normal bowel sounds, soft non tender, no masses Extremities are edematous and feel cool to touch Neurologic exam is alert and oriented, is awakened but falls asleep easily Skin is with bruises or rashes PG Care Time/CCT Total # of Minutes Spent Total Time Spent with Patient: Total time spent is greater than 50% in coordination of care (as documented) at patient's floor/unit and/or counseling patient: Coding Level of Care Code 57989 Subseq Hosp Care Lvl 2 Diagnoses Goals of care, counseling/discussion Z71.89 Myopathy G72.9 Neutropenia D70.9 CKD (chronic kidney disease) N18.9 Chronic kidney disease stage: unspecified stage Acute GI bleeding K92.2 COVID-19 U07.1 Abnormal LFTs R94.5 Elevated troponin R77.8 Chronic hyponatremia E87.1 Ischemic cardiomyopathy I25.5 CAD (coronary artery disease) I25.10 Associated angina: without angina Coronary Disease-Associated Artery/Lesion type: [place] artery [place] vs. transplanted heart: [place] heart Hypertension I10 Asthma J45.909 Rheumatoid arthritis M06.9 Hypothyroidism E03.9 Abnormal MRI, lumbar spine R93.7 Severe protein-calorie malnutrition E43 (1) CAD (coronary artery disease) Associated angina: without angina Coronary Disease-Associated Artery/Lesion type: [place] artery [place] vs. transplanted heart: [place] heart Qualified Code(s): I25.10 - Atherosclerotic heart disease of [place] coronary artery without angina pectoris (2) CKD (chronic kidney disease) Chronic kidney disease stage: unspecified stage Qualified Code(s): N18.9 - Chronic kidney disease, unspecified
[2021-10-23] MEDS: BENZONATATE 100 MG CAPSULE PO SCH ×3 (10:29→20:04)
[2021-10-23] MEDS: FLUTICASONE/SALMETEROL (ADVAIR) 500/50 INH 14 PUFF INH SCH ×2 (10:29→20:04)
[2021-10-23] MEDS: traMADol HCL 50 MG TABLET PO SCH ×3 (10:30→20:04)
[2021-10-24] MEDS: MoRPHine SULFATE 2 MG/ML CARP IV PRN (05:14)
[2021-10-24] MEDS: BENZONATATE 100 MG CAPSULE PO SCH ×3 (09:32→22:10)
[2021-10-24] MEDS: traMADol HCL 50 MG TABLET PO SCH ×3 (09:32→22:11)
[2021-10-24] MEDS: FLUTICASONE/SALMETEROL (ADVAIR) 500/50 INH 14 PUFF INH SCH ×2 (09:32→22:10)
--- NOTE | 2021-10-24 17:07 | Hospitalist Progress Note ---
Date of Service October 24, 2021 Assessment & Plan (1) Goals of care, counseling/discussion: Plan: on 10/21, patient wished to change to DNR/DNI she agreed with palliative care/hospice care chronic conditions that are not improving: cardiomyopathy, CKD, hypoalbuminemia, malnutrition, chronic weakness, rheumatoid arthritis, GI bleeding/anemia now with acute myositis/myopathy, she has not been able to get out of bed this entire hospital stay on 10/22 she was refusing oral medications, refusing to eat or drink, wanted her life vest removed Dr George discussed changing her to comfort measures only, she agreed with that plan called her son Frank, they can visit when out of COVID unit moved to 305 in the evening, airborne precautions 10/16/21 will need private room until 10/26/21 out look is poor, family was not reached, expect in the next few days the remainder below are earlier problems from hospital stay (2) Myopathy: Plan: Myositis, very very weak CPK improved previously HOLDING her statin and giving steroids. in August during her NSTEMI admission her CPK was <500 leg weakness is due to myopathy ortho-spine formally consulted; reviewed MRI l-spine; findings do not explain her b/l, proximal muscle weakness, which reinforces dx of statin myopathy as she was placed on Lipitor for first time following her NSTEMI. cont to HOLD statin - placed on allergy list takes chronic steroids (methylprednisolone) -- cont to Rx with methylprednisolone 20mg BID; no change on that dose she wishes to change her code status to DNR/DNI (3) Neutropenia: Plan: d/w Dr. Mina with hematology, appreciate her input will hold Seroquel as that is new, checked Vitamin B12 and Folic acid, both are normal given Neupogen daily x 3 days, wbc is normalized (4) CKD (chronic kidney disease): Plan: STAGE 4 baseline CrCl <30 with JOAN resolving did have elevated K+ given veltassa (5) Acute GI bleeding: Plan: hgb stable transfused 2 u prbc during stay end of August, was scoped at that time with EGD showing gastritis, cont PPI twice daily now with more evidence of GI bleeding on 10/20, Hb 7.8, with her CAD transfused 2 units tolerated transfusion she has no interest in scopes BUN going up to 143 Hb is 8.7 comfort care (6) COVID-19: Plan: CT chest 10/11/21 b/l pneumonia c/w COVID pneumonia still not hypoxic - continue airborne precautions should likely come off airborne precautions on 10/16/2021 continue pulmonary toilet not a candidate for remdesivir due to lack of hypoxia and ARF current steroids are primarily for her RA and #1 will move out of negative pressure, went to 305 (7) Abnormal LFTs: Plan: 2nd to statin; can't rule out COVID-19 playing a role as well holding lipitor repeat LFTs normalized (8) Elevated troponin: Plan: myocardial demand ischemia rather than recurrent NSTEMI (9) Chronic hyponatremia: Plan: stable (10) Ischemic cardiomyopathy: Plan: EF 25-30% on echo during admission for NSTEMI overall she is total body fluid overloaded (anasarca) from ARF, CHF and severe hypoalbuminemia not YANG or ARB candidate due to CKD (11) CAD (coronary artery disease): Plan: as above (12) Hypertension: Plan: Controlled (13) Asthma: Plan: Has been stable (14) Rheumatoid arthritis: Plan: no active flare at this time (15) Hypothyroidism: Plan: TSH earlier this month wnl previously on Synthroid (16) Abnormal MRI, lumbar spine: Plan: fluid in 2 vertebral levels on MRI likely DJD per both radiology and orthopecics (17) Severe protein-calorie malnutrition: Plan: albumin of <1.5 NO APPETITE COVID-19, depression (she denies such but states she is "angry"), recent cardiac issues, etc - all contributing to anorexia 3rd spacing due to low albumin overall makes prognosis worse Plan: [employer] Admission and Anticipated Discharge Date Admission Date: October 06, 2021 Subjective Walked into see the patient she says she was comfortable, but she is weakened and tired. I attempted to call family both numbers abruptly stopped ringing as if with a hang up, Pt is nearing end of life Review of Systems Review of Systems: Unobtainable due to cognitive status Physical Exam Physical Exam: The patient appeared well Vital signs as documented. Lungs are clear to auscultation dimished at the bases appears unlabored Cardiac exam, Rhythm is regular.. No murmurs, rubs or gallops. Abdominal exam reveals normal bowel sounds, soft non tender, no masses Extremities are edematous and feel cool to touch Neurologic exam is alert and oriented, is awakened but falls asleep easily Skin is with bruises or rashes Results & Data Results & Data ([facility]) Vital Signs (Past 12 Hours) Vital Signs Resp 10/24/21 05:17 8 L PG Care Time/CCT Total # of Minutes Spent Total Time Spent with Patient: Total time spent is greater than 50% in coordination of care (as documented) at patient's floor/unit and/or counseling patient: Coding Level of Care Code 43233 Subseq Hosp Care Lvl 2 Diagnoses Goals of care, counseling/discussion Z71.89 Myopathy G72.9 Neutropenia D70.9 CKD (chronic kidney disease) N18.9 Chronic kidney disease stage: unspecified stage Acute GI bleeding K92.2 COVID-19 U07.1 Abnormal LFTs R94.5 Elevated troponin R77.8 Chronic hyponatremia E87.1 Ischemic cardiomyopathy I25.5 CAD (coronary artery disease) I25.10 Coronary Disease-Associated Artery/Lesion type: [place] artery [place] vs. transplanted heart: [place] heart Associated angina: without angina Hypertension I10 Asthma J45.909 Rheumatoid arthritis M06.9 Hypothyroidism E03.9 Abnormal MRI, lumbar spine R93.7 Severe protein-calorie malnutrition E43 (1) CKD (chronic kidney disease) Chronic kidney disease stage: unspecified stage Qualified Code(s): N18.9 - Chronic kidney disease, unspecified (2) CAD (coronary artery disease) Coronary Disease-Associated Artery/Lesion type: [place] artery [place] vs. transplanted heart: [place] heart Associated angina: without angina Qualified Code(s): I25.10 - Atherosclerotic heart disease of [place] coronary artery without angina pectoris
[2021-10-25] MEDS: MoRPHine SULFATE 2 MG/ML CARP IV PRN (01:33)
--- NOTE | 2021-10-25 20:50 | Hospitalist Progress Note ---
Date of Service October 25, 2021 Assessment & Plan (1) Goals of care, counseling/discussion: Plan: on 10/21, patient wished to change to DNR/DNI she agreed with palliative care/hospice care chronic conditions that are not improving: cardiomyopathy, CKD, hypoalbuminemia, malnutrition, chronic weakness, rheumatoid arthritis, GI bleeding/anemia now with acute myositis/myopathy, she has not been able to get out of bed this entire hospital stay on 10/22 she was refusing oral medications, refusing to eat or drink, wanted her life vest removed Dr George discussed changing her to comfort measures only, she agreed with that plan called her son Frank, they can visit when out of COVID unit moved to 305 in the evening, airborne precautions 10/16/21 will need private room until 10/26/21 out look is poor, family was not reached, expect in the next few days the remainder below are earlier problems from hospital stay (2) Myopathy: Plan: Myositis, very very weak CPK improved previously HOLDING her statin and giving steroids. in August during her NSTEMI admission her CPK was <500 leg weakness is due to myopathy ortho-spine formally consulted; reviewed MRI l-spine; findings do not explain her b/l, proximal muscle weakness, which reinforces dx of statin myopathy as she was placed on Lipitor for first time following her NSTEMI. cont to HOLD statin - placed on allergy list takes chronic steroids (methylprednisolone) -- cont to Rx with methylprednisolone 20mg BID; no change on that dose she wishes to change her code status to DNR/DNI (3) Neutropenia: Plan: d/w Dr. Mina with hematology, appreciate her input will hold Seroquel as that is new, checked Vitamin B12 and Folic acid, both are normal given Neupogen daily x 3 days, wbc is normalized (4) CKD (chronic kidney disease): Plan: STAGE 4 baseline CrCl <30 with JOAN resolving did have elevated K+ given veltassa (5) Acute GI bleeding: Plan: hgb stable transfused 2 u prbc during stay end of August, was scoped at that time with EGD showing gastritis, cont PPI twice daily now with more evidence of GI bleeding on 10/20, Hb 7.8, with her CAD transfused 2 units tolerated transfusion she has no interest in scopes BUN going up to 143 Hb is 8.7 comfort care (6) COVID-19: Plan: CT chest 10/11/21 b/l pneumonia c/w COVID pneumonia still not hypoxic - continue airborne precautions should likely come off airborne precautions on 10/16/2021 continue pulmonary toilet not a candidate for remdesivir due to lack of hypoxia and ARF current steroids are primarily for her RA and #1 will move out of negative pressure, went to 305 (7) Abnormal LFTs: Plan: 2nd to statin; can't rule out COVID-19 playing a role as well holding lipitor repeat LFTs normalized (8) Elevated troponin: Plan: myocardial demand ischemia rather than recurrent NSTEMI (9) Chronic hyponatremia: Plan: stable (10) Ischemic cardiomyopathy: Plan: EF 25-30% on echo during admission for NSTEMI overall she is total body fluid overloaded (anasarca) from ARF, CHF and severe hypoalbuminemia not YANG or ARB candidate due to CKD (11) CAD (coronary artery disease): Plan: as above (12) Hypertension: Plan: Controlled (13) Asthma: Plan: Has been stable (14) Rheumatoid arthritis: Plan: no active flare at this time (15) Hypothyroidism: Plan: TSH earlier this month wnl previously on Synthroid (16) Abnormal MRI, lumbar spine: Plan: fluid in 2 vertebral levels on MRI likely DJD per both radiology and orthopecics (17) Severe protein-calorie malnutrition: Plan: albumin of <1.5 NO APPETITE COVID-19, depression (she denies such but states she is "angry"), recent cardiac issues, etc - all contributing to anorexia 3rd spacing due to low albumin overall 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 did not respond to voice or tactile stimuli, Review of Systems Review of Systems: Unobtainable due to cognitive status Physical Exam Physical Exam: The patient appeared well Vital signs as documented. Lungs are clear to auscultation dimished at the bases appears unlabored Cardiac exam, Rhythm is regular.. No murmurs, rubs or gallops. Abdominal exam reveals normal bowel sounds, soft non tender, no masses Extremities are edematous and feel cool to touch Neurologic exam is alert and oriented, is awakened but falls asleep easily Skin is with bruises or rashes PG Care Time/CCT Total # of Minutes Spent Total Time Spent with Patient: Total time spent is greater than 50% in coordination of care (as documented) at patient's floor/unit and/or counseling patient: Coding Level of Care Code 85930 Subseq Hosp Care Lvl 2 Diagnoses Goals of care, counseling/discussion Z71.89 Myopathy G72.9 Neutropenia D70.9 CKD (chronic kidney disease) N18.9 Chronic kidney disease stage: unspecified stage Acute GI bleeding K92.2 COVID-19 U07.1 Abnormal LFTs R94.5 Elevated troponin R77.8 Chronic hyponatremia E87.1 Ischemic cardiomyopathy I25.5 CAD (coronary artery disease) I25.10 Coronary Disease-Associated Artery/Lesion type: [place] artery [place] vs. transplanted heart: [place] heart Associated angina: without angina Hypertension I10 Asthma J45.909 Rheumatoid arthritis M06.9 Hypothyroidism E03.9 Abnormal MRI, lumbar spine R93.7 Severe protein-calorie malnutrition E43 (1) CKD (chronic kidney disease) Chronic kidney disease stage: unspecified stage Qualified Code(s): N18.9 - Chronic kidney disease, unspecified (2) CAD (coronary artery disease) Coronary Disease-Associated Artery/Lesion type: [place] artery [place] vs. transplanted heart: [place] heart Associated angina: without angina Qualified Code(s): I25.10 - Atherosclerotic heart disease of [place] coronary artery without angina pectoris
[2021-10-26] MEDS: MoRPHine SULFATE 2 MG/ML CARP IV PRN ×4 (09:32→22:15)
[2021-10-26 11:36] LABS: Anti-Striated Muscle NEGATIVE (NEGATIVE); Receptor Binding Ab <0.30 nmol/L
--- NOTE | 2021-10-26 18:40 | Hospitalist Progress Note ---
Date of Service October 26, 2021 Assessment & Plan (1) Goals of care, counseling/discussion: Plan: on 10/21, patient wished to change to DNR/DNI she agreed with palliative care/hospice care chronic conditions that are not improving: cardiomyopathy, CKD, hypoalbuminemia, malnutrition, chronic weakness, rheumatoid arthritis, GI bleeding/anemia now with acute myositis/myopathy, she has not been able to get out of bed this entire hospital stay on 10/22 she was refusing oral medications, refusing to eat or drink, wanted her life vest removed Dr George discussed changing her to comfort measures only, she agreed with that plan called her son Frank, they can visit when out of COVID unit moved to 305 in the evening, airborne precautions 10/16/21 will need private room until 10/26/21 out look is poor, family was not reached, expect in the next few days the remainder below are earlier problems from hospital stay (2) Myopathy: Plan: Myositis, very very weak CPK improved previously HOLDING her statin and giving steroids. in August during her NSTEMI admission her CPK was <500 leg weakness is due to myopathy ortho-spine formally consulted; reviewed MRI l-spine; findings do not explain her b/l, proximal muscle weakness, which reinforces dx of statin myopathy as she was placed on Lipitor for first time following her NSTEMI. cont to HOLD statin - placed on allergy list takes chronic steroids (methylprednisolone) -- cont to Rx with methylprednisolone 20mg BID; no change on that dose she wishes to change her code status to DNR/DNI (3) Neutropenia: Plan: d/w Dr. Mina with hematology, appreciate her input will hold Seroquel as that is new, checked Vitamin B12 and Folic acid, both are normal given Neupogen daily x 3 days, wbc is normalized (4) CKD (chronic kidney disease): Plan: STAGE 4 baseline CrCl <30 with JOAN resolving did have elevated K+ given veltassa (5) Acute GI bleeding: Plan: hgb stable transfused 2 u prbc during stay end of August, was scoped at that time with EGD showing gastritis, cont PPI twice daily now with more evidence of GI bleeding on 10/20, Hb 7.8, with her CAD transfused 2 units tolerated transfusion she has no interest in scopes BUN going up to 143 Hb is 8.7 comfort care (6) COVID-19: Plan: CT chest 10/11/21 b/l pneumonia c/w COVID pneumonia still not hypoxic - continue airborne precautions should likely come off airborne precautions on 10/16/2021 continue pulmonary toilet not a candidate for remdesivir due to lack of hypoxia and ARF current steroids are primarily for her RA and #1 will move out of negative pressure, went to 305 (7) Abnormal LFTs: Plan: 2nd to statin; can't rule out COVID-19 playing a role as well holding lipitor repeat LFTs normalized (8) Elevated troponin: Plan: myocardial demand ischemia rather than recurrent NSTEMI (9) Chronic hyponatremia: Plan: stable (10) Ischemic cardiomyopathy: Plan: EF 25-30% on echo during admission for NSTEMI overall she is total body fluid overloaded (anasarca) from ARF, CHF and severe hypoalbuminemia not YANG or ARB candidate due to CKD (11) CAD (coronary artery disease): Plan: as above (12) Hypertension: Plan: Controlled (13) Asthma: Plan: Has been stable (14) Rheumatoid arthritis: Plan: no active flare at this time (15) Hypothyroidism: Plan: TSH earlier this month wnl previously on Synthroid (16) Abnormal MRI, lumbar spine: Plan: fluid in 2 vertebral levels on MRI likely DJD per both radiology and orthopecics (17) Severe protein-calorie malnutrition: Plan: albumin of <1.5 NO APPETITE COVID-19, depression (she denies such but states she is "angry"), recent cardiac issues, etc - all contributing to anorexia 3rd spacing due to low albumin overall makes prognosis worse Plan: family reached and updated, no additional questions Admission and Anticipated Discharge Date Admission Date: October 06, 2021 Subjective Walked into see the patient s she is weakened and tired. did not respond to voice or tactile stimuli, Review of Systems Review of Systems: Unobtainable due to cognitive status Physical Exam Physical Exam: The patient appeared well Vital signs as documented. Lungs are clear to auscultation dimished at the bases appears unlabored Cardiac exam, Rhythm is regular.. No murmurs, rubs or gallops. Abdominal exam reveals normal bowel sounds, soft non tender, no masses Extremities are edematous and feel cool to touch Neurologic exam is alert and oriented, is awakened but falls asleep easily Skin is with bruises or rashes PG Care Time/CCT Total # of Minutes Spent Total Time Spent with Patient: Total time spent is greater than 50% in coordination of care (as documented) at patient's floor/unit and/or counseling patient: Coding Level of Care Code 35067 Subseq Hosp Care Lvl 1 Diagnoses Goals of care, counseling/discussion Z71.89 Myopathy G72.9 Neutropenia D70.9 CKD (chronic kidney disease) N18.9 Chronic kidney disease stage: unspecified stage Acute GI bleeding K92.2 COVID-19 U07.1 Abnormal LFTs R94.5 Elevated troponin R77.8 Chronic hyponatremia E87.1 Ischemic cardiomyopathy I25.5 CAD (coronary artery disease) I25.10 Coronary Disease-Associated Artery/Lesion type: [place] artery [place] vs. transplanted heart: [place] heart Associated angina: without angina Hypertension I10 Asthma J45.909 Rheumatoid arthritis M06.9 Hypothyroidism E03.9 Abnormal MRI, lumbar spine R93.7 Severe protein-calorie malnutrition E43 (1) CKD (chronic kidney disease) Chronic kidney disease stage: unspecified stage Qualified Code(s): N18.9 - Chronic kidney disease, unspecified (2) CAD (coronary artery disease) Coronary Disease-Associated Artery/Lesion type: [place] artery [place] vs. transplanted heart: [place] heart Associated angina: without angina Qualified Code(s): I25.10 - Atherosclerotic heart disease of [place] coronary artery without angina pectoris
[2021-10-27] MEDS: MoRPHine SULFATE 2 MG/ML CARP IV PRN ×3 (02:24→08:09)
[2021-10-27] MEDS ORDERED: STAT IV Infusion **Titration per Protocol STA (08:50)
[2021-10-27] MEDS ORDERED: MoRPHine SULF/NSS 250 MG/250 ML BTL IV SCH (09:30)
--- NOTE | 2021-10-27 11:03 | Discharge Summary ---
Date of Service October 27, 2021 Admission HPI Per Admitting Provider 75 yo F with PMH significant for ischemic cardiomyopathy EF 25-30% s/p PCI of D1 and LAD on 09/02/21, RA, gastritis, CKD3B, chronic hyponatremia who presents to ER from [facility] for abnormal labs. She states that after getting discharged from the hospital she's been very fatigued, and having great difficulty moving her legs despite participating in physical therapy as much as she can. She started having a mild nighttime cough a few days ago. She denies any orthopnea, SOB. She is dyspneic on exertion but is limited in physical capabilities due to previously mentioned deconditioning. No fevers, chills, night sweats. Unsure of any sick contacts, no visitors currently allowed at [facility]. CBC ordered by heart failure team - Hg 7.2 yesterday at [facility] per patient, 7.0 today, which prompted them to send her to the hospital. She was also started on a decadron PO pack yesterday for a cough. Principal Diagnosis renal failure secondary to ischemic cardiomyopathy Discharge Exam pt was examined without audible heart tones or spontaneous respirations, pronounced at 0950 on 10/27/21. family aware Discharge Data Allergies Allergy/AdvReac Type Severity Reaction Status Date / Time [id number]-TpB Reductase Allergy Severe Verified 10/11/21 15:08 Inhibitor amoxicillin Allergy Intermediate SEVERE Verified 10/06/21 15:17 RHEUMATOID ARTHRITIC SYMPTOMS clavulanic acid Allergy Intermediate SEVERE Verified 10/06/21 15:17 RHEUMATOID ARTHRITIC SYMPTOMS iodine Allergy Intermediate Stage 1V Verified 10/06/21 15:17 kidney disease lactose Allergy Intermediate Gastrointestinal Verified 10/06/21 15:17 Upset auranofin [From Ridaura] Allergy Mild Rash Verified 09/27/21 13:40 infliximab [From Remicade] Allergy Mild Rash Verified 10/06/21 15:17 Penicillins Allergy Unknown ON MED LIST Verified 10/06/21 15:17 Sulfa (Sulfonamide AdvReac Intermediate "give me Verified 10/06/21 15:17 Antibiotics) anxiety" Consultations 10/06/21 17:23 ED Decision to Admit Stat 10/07/21 09:07 Consult Cardiology Routine 10/08/21 19:05 Consult Urology Stat 10/09/21 19:38 Consult Orthopedic Surgery Routine 10/11/21 17:05 Consult Nephrology Routine 10/17/21 20:23 Consult Hematology Routine 10/22/21 14:37 Consult Palliative Care Routine Ordered Studies 10/08/21 18:49 MR lumbar spine wo con Stat 10/11/21 07:55 CT abd pelvis wo con Routine Hospital Course (1) : Pt was pronounced 10/27/21 at 0950. family is aware. the following note is from earlier in the hospital stay (2) Goals of care, counseling/discussion: on 10/21, patient wished to change to DNR/DNI she agreed with palliative care/hospice care chronic conditions that are not improving: cardiomyopathy, CKD, hypoalbuminemia, malnutrition, chronic weakness, rheumatoid arthritis, GI bleeding/anemia now with acute myositis/myopathy, she has not been able to get out of bed this entire hospital stay on 10/22 she was refusing oral medications, refusing to eat or drink, wanted her life vest removed Dr George discussed changing her to comfort measures only, she agreed with that plan called her son Frank, they can visit when out of COVID unit moved to [facility] in the evening, airborne precautions 10/16/21 will need private room until 10/26/21 out look is poor, family was not reached, expect in the next few days the remainder below are earlier problems from hospital stay (3) Myopathy: Myositis, very very weak CPK improved previously HOLDING her statin and giving steroids. in August during her NSTEMI admission her CPK was <500 leg weakness is due to myopathy ortho-spine formally consulted; reviewed MRI l-spine; findings do not explain her b/l, proximal muscle weakness, which reinforces dx of statin myopathy as she was placed on Lipitor for first time following her NSTEMI. cont to HOLD statin - placed on allergy list takes chronic steroids (methylprednisolone) -- cont to Rx with methylprednisolone 20mg BID; no change on that dose she wishes to change her code status to DNR/DNI (4) Neutropenia: d/w Dr. Mina with hematology, appreciate her input will hold Seroquel as that is new, checked Vitamin B12 and Folic acid, both are normal given Neupogen daily x 3 days, wbc is normalized (5) CKD (chronic kidney disease): STAGE 4 baseline CrCl <30 with JOAN resolving did have elevated K+ given veltassa (6) Acute GI bleeding: hgb stable transfused 2 u prbc during stay end of August, was scoped at that time with EGD showing gastritis, cont PPI twice daily now with more evidence of GI bleeding on 10/20, Hb 7.8, with her CAD transfused 2 units tolerated transfusion she has no interest in scopes BUN going up to 143 Hb is 8.7 comfort care (7) COVID-19: CT chest 10/11/21 b/l pneumonia c/w COVID pneumonia still not hypoxic - continue airborne precautions should likely come off airborne precautions on 10/16/2021 continue pulmonary toilet not a candidate for remdesivir due to lack of hypoxia and ARF current steroids are primarily for her RA and #1 will move out of negative pressure, went to 305 (8) Abnormal LFTs: 2nd to statin; can't rule out COVID-19 playing a role as well holding lipitor repeat LFTs normalized (9) Elevated troponin: myocardial demand ischemia rather than recurrent NSTEMI (10) Chronic hyponatremia: stable (11) Ischemic cardiomyopathy: EF 25-30% on echo during admission for NSTEMI overall she is total body fluid overloaded (anasarca) from ARF, CHF and severe hypoalbuminemia not YANG or ARB candidate due to CKD (12) CAD (coronary artery disease): as above (13) Hypertension: Controlled (14) Asthma: Has been stable (15) Rheumatoid arthritis: no active flare at this time (16) Hypothyroidism: TSH earlier this month wnl previously on Synthroid (17) Abnormal MRI, lumbar spine: fluid in 2 vertebral levels on MRI likely DJD per both radiology and orthopecics (18) Severe protein-calorie malnutrition: albumin of <1.5 NO APPETITE COVID-19, depression (she denies such but states she is "angry"), recent cardiac issues, etc - all contributing to anorexia 3rd spacing due to low albumin overall makes prognosis worse family reached and updated, no additional questions Total Time Total Time Spent Total Time Spent (In Minutes): greater than 30 minutes were required to prepare this summary Discharge Plan Discharge Items Reason For Visit: ANEMIA,FATIGUE,COVID Follow-up/Referrals: Francisco Velez DO [Primary Care Provider] - Medications and DC Order Prescriptions: No Action ascorbate calcium (vitamin C) 500 mg tablet 500 mg PO QAM RF: 0 cyanocobalamin (vitamin B-12) 1,000 mcg capsule 1,000 mcg PO QAM RF: 0 ursodiol 300 mg capsule 300 mg PO BID RF: 0 methylprednisolone 4 mg tablet See Rx Instructions .ROUTE .COMPLEX RF: 0 hydroxychloroquine [Plaquenil] 200 mg tablet 200 mg PO QAM RF: 0 gentamicin sulfate (PF) 60 mg/6 mL solution 60 mg inhalation UD PRN (Reason: Nasal Congestion) Qty: 45 RF: 3 sodium chloride 1 gram tablet 1,000 mg PO DAILY RF: 0 albuterol sulfate [Ventolin HFA] 90 mcg/actuation HFA aerosol inhaler 2 puff INH Q4H PRN (Reason: Wheezing) Qty: 8.5 RF: 5 biotin 5,000 mcg tablet, sublingual 5,000 mcg SL QAM RF: 0 psyllium husk [Metamucil] 0.52 gram capsule 0.52 g PO BIDM RF: 0 diclofenac sodium [Voltaren Arthritis Pain] 1 % gel 2 g TOPICAL QID PRN (Reason: Pain) RF: 0 clopidogrel 75 mg Tablet 75 mg PO QAM Qty: 30 RF: 5 atorvastatin 40 mg Tablet 80 mg PO QAM Qty: 30 RF: 5 acetaminophen [Tylenol] 325 mg Tablet 650 mg PO Q4H PRN (Reason: Pain (Scale Score 1-3)) RF: 0 carvedilol 12.5 mg Tablet 12.5 mg PO BIDM RF: 0 sennosides-docusate sodium [Senokot-S] 8.6-50 mg Tablet 1 tab-cap PO QDL PRN (Reason: Constipation) RF: 0 loperamide [Imodium A-D] 2 mg Tablet 2 mg PO Q4H PRN (Reason: Diarrhea) RF: 0 magnesium hydroxide [Milk of Magnesia] 400 mg/5 mL Suspension 30 ml PO DAILY PRN (Reason: Constipation) RF: 0 bisacodyl 10 mg Suppository 10 mg VA DAILY PRN (Reason: Constipation) RF: 0 pantoprazole 40 mg Tablet,Delayed Release (Dr/Ec) 40 mg PO QDL RF: 0 ferrous sulfate 325 mg (65 mg iron) Tablet 325 mg PO BIDM RF: 0 docusate sodium 100 mg Capsule 100 mg PO BID RF: 0 polyethylene glycol 3350 [Miralax] 17 gram/dose Powder 17 g PO QDL PRN (Reason: Constipation) RF: 0 Mucinex DM 30-600 mg Tablet Extended Release 12 Hr 1 tab PO BID RF: 0 ondansetron [Zofran ODT] 4 mg Tablet,Disintegrating 4 mg PO Q6H PRN (Reason: NAUSEA/VOMITING) RF: 0 Breo Ellipta 200-25 mcg/dose Blister With Device 1 inh INHALATION DAILY RF: 0 tramadol 50 mg tablet 50 mg PO Q12H PRN (Reason: Pain (Scale Score 4-10)) RF: 0 levothyroxine 100 mcg tablet 100 mcg PO DAILYBB RF: 0 gabapentin 100 mg capsule 200 mg PO HS RF: 0 fluticasone propion-salmeterol [Advair Diskus] 500-50 mcg/dose Blister With Device 1 inh INHALATION BID RF: 0 Admission Data Admit Date/Time: 10/06/21 18:30 Attending Provider: Ariel Gong Admit Provider: Elizabeth Rodriguez Primary Care Provider: Francisco Velez Other Providers: [facility] ; [facility] ; [facility] ; Raj Manning ; Marino Awad ; Shane Grijalva ; Marcello Law ; Savanna Arellano ; Cosme Goff V. ; Alessandra Mo ; Deepti Kidd ; Mynor Sanchez ; Collin Segovia ; Lopez Purdy ; Felisha Mina ; [facility] Attending ; Gale Walker Coding Level of Care Code D/C DAY MANAGEMENT >30 MINS Diagnoses Goals of care, counseling/discussion Z71.89 Myopathy G72.9 Neutropenia D70.9 CKD (chronic kidney disease) N18.9 Chronic kidney disease stage: unspecified stage Acute GI bleeding K92.2 COVID-19 U07.1 Abnormal LFTs R94.5 Elevated troponin R77.8 Chronic hyponatremia E87.1 Ischemic cardiomyopathy I25.5 CAD (coronary artery disease) I25.10 Associated angina: without angina Coronary Disease-Associated Artery/Lesion type: [place] artery [place] vs. transplanted heart: [place] heart Hypertension I10 Asthma J45.909 Rheumatoid arthritis M06.9 Hypothyroidism E03.9 Abnormal MRI, lumbar spine R93.7 Severe protein-calorie malnutrition E43 R99
== END 2021-10-27 13:30 | disposition expired | DRG 177 ==
LOC: ED 14:25 → EDINP 18:30 → SUATTDRO 18:30 → EDINP 20:15 → 2W 10-07 21:29 → 3E 10-22 20:23
DX: E87.5 Hyperkalemia; K92.2 Gastrointestinal hemorrhage, unspecified; E43 Unspecified severe protein-calorie malnutrition; K29.70 Gastritis, unspecified, without bleeding; Z79.52 Long term (current) use of systemic steroids; Z66 Do not resuscitate; Z79.01 Long term (current) use of anticoagulants; E87.2 Acidosis; E03.9 Hypothyroidism, unspecified; Z88.0 Allergy status to penicillin; Z88.2 Allergy status to sulfonamides; E87.1 Hypo-osmolality and hyponatremia; Z79.82 Long term (current) use of aspirin; I50.22 Chronic systolic (congestive) heart failure; Z51.5 Encounter for palliative care; J12.82 Pneumonia due to coronavirus disease 2019; U07.1 COVID-19; J45.909 Unspecified asthma, uncomplicated; I25.10 Atherosclerotic heart disease of native coronary artery without angina pectoris; E16.2 Hypoglycemia, unspecified; M81.0 Age-related osteoporosis without current pathological fracture; G72.0 Drug-induced myopathy; D62 Acute posthemorrhagic anemia; M06.9 Rheumatoid arthritis, unspecified; N17.9 Acute kidney failure, unspecified; I13.0 Hypertensive heart and chronic kidney disease with heart failure and stage 1 through stage 4 chronic kidney disease, or unspecified chronic kidney disease; I25.5 Ischemic cardiomyopathy; N18.4 Chronic kidney disease, stage 4 (severe); R33.9 Retention of urine, unspecified